=== PATIENT | male | born 1950 | race Caucasian/White ===

== ENCOUNTER 2021-09-23 12:40 | Observation (INO) ==
--- NOTE | 2021-09-23 13:15 | Emergency Department Note ---
Impression & Plan Transient memory loss, GERD (gastroesophageal reflux disease), H/O: HTN (hypertension) ED Provider Note NAME: MARTHA TRAN AGE: 71 SEX: M : 1950 ARRIVES VIA: Walk-In INFORMANT: Patient, ED PROVIDER(S): Jenaro Monterroso MD Chief Complaint: Memory issues HPI: Patient presents due to concern for memory concerns and confusion which started around 1130 today. The patient could not remember things that happened this morning and slept longer than expected. The patient had been looking at a check and could not remember where he and his had met for the first date or his checking information. Patient did not have any symptoms through this morning. No prior history of any TIA or stroke. No history of seizure. The patient does have a history of hypertension and is getting this Monday but denies feeling more stressed. Patient denies any headache or neck pain. The patient denies any focal numbness tingling or weakness, slurred speech, facial droop, or dysarthria. The patient's symptoms have since resolved and the patient is able to remember his bank information as well is where he and his fiance met on the first day. Patient denies any nausea vomiting chest pain or shortness of breath. Patient denies any leg swelling. Patient says he has never had any prior history of memory issues or dementia. ROS: See HPI for pertinent positives and negatives. A total of 10 systems were reviewed and otherwise negative. Past medical history: See below Surgical history: See below Social history: See below Physical Exam: GENERAL: NAD, wearing a mask, non-toxic. EYE EXAM: Normal conjunctiva. PERRL, no anisocoria and EOM's grossly intact w/o pain. OROPHARYNX: Moist mucus membranes. Grossly normal dentition. NECK: Supple, no nuchal rigidity, no adenopathy, non-tender. No signs of meningismus. LUNGS: Clear to auscultation. Normal chest wall mechanics. HEART: NSR, no MRG. ABDOMEN: Abdomen soft, non-tender, normo-active bowel sounds, no masses, no rebound or guarding. BACK: No CVA TTP. SKIN: No rashes and no bruising. UPPER EXTREMITIES: Upper extremities are grossly normal. LOWER EXTREMITIES: Grossly normal, no edema. NEURO EXAM: A&O x3, cranial nerves II-XII grossly intact, normal speech, moves all 4 extremities on command w/o issue. Good finger to nose, no drift, no sensory deficits. Differential diagnoses: Infection, dehydration, metabolic abnormality, hypo/hy perglycemia, electrolyte disturbance, anemia, hypoxia, cardiac sources, intracerebral event, toxicologic, neurologic, as well as other pathologies. Course: Patient was seen and evaluated the bedside. Full history physical exam was performed. EKG interpreted by me Normal sinus rhythm, rate of 82, normal intervals, left axis deviation, Q waves high lateral leads. Imaging Studies: See Below Cardiac monitoring: An order was placed for continuous cardiac monitoring. The monitor shows a rate of 80 with sinus rhythm. MDM: Patient was seen due to concern for transient memory loss. Patient denies any known history of TIA or seizure. Patient did have bladder completed along with CT head and CT angiography of the head neck. Patient is a normal white count H&H and platelet count. The patient's kidney function is unremarkable. Bilirubin 1.4 but the patient has no right upper quadrant pain this is likely incidental in nature. Covid negative. Troponin not detectable. Patient's chest film is clear. CT of the head and CT angiography of the head and neck are negative. Patient was ordered aspirin as a precaution given the negative CT head and CT angiography of head neck. MRI was ordered. I did speak the on-call hospitalist Dr. Bibi PA-C and the patient was admitted by Dr. Jensen. Past Med/Surg History Medical History BPH (benign prostatic hyperplasia) Depression Environmental allergies Essential hypertension GERD (gastroesophageal reflux disease) Prostate CA Restless leg syndrome Surgical History H/O vasectomy History of hernia surgery History of total left knee replacement Hx of tonsillectomy Family History Father , age 62 Heart disease Mother , ~70 y/o Heart disease Stroke Social History Smoking Status: Never smoker Second Hand Exposure: No; Do You Dip or Chew Tobacco: No; Tobacco Cessation Education Requested by Patient: No Hx Alcohol Use: Yes Alcohol type: beer and hard liquor Hx Substance Use: No Preferred Language: Turkmen Communication Ability: Effective Toxicology Supervisor Required: No Beliefs That Will Affect Care: Hoahaoism Current Living Situation: Significant Other Current Living Situation Comment: lives with fiance Other Information That Helps Us Care for You: No Feels Safe at Home: Yes Safety Concerns: Feels Safe At This Time Allergies Allergies Allergy/AdvReac Type Severity Reaction Status Date / Time mold Allergy Mild Congested Verified 09/23/21 15:52 dust Allergy Mild Congested Uncoded 09/23/21 15:52 pets Allergy Mild Congested Uncoded 09/23/21 15:52 Home Meds Home Medications Medication Instructions Recorded Confirmed amlodipine 5 mg tablet 5 mg PO QAM 09/23/21 09/23/21 lisinopril 20 mg tablet 20 mg PO QAM 09/23/21 09/23/21 loratadine 10 mg tablet 10 mg PO DAILY PRN 09/23/21 09/23/21 melatonin 10 mg tablet 10 mg PO HS 09/23/21 09/23/21 metoprolol succinate 100 mg 100 mg PO DAILY 09/23/21 09/23/21 tablet,extended release 24 hr multivitamin 1 tab PO QAM 09/23/21 09/23/21 omeprazole 20 mg capsule,delayed 20 mg PO QAM 09/23/21 09/23/21 release tamsulosin 0.4 mg capsule 0.8 mg PO HS 09/23/21 09/23/21 Results & Data (ED) Vital Signs Vital Signs - 24 hr 09/23/21 12:46 09/23/21 13:19 09/23/21 15:32 Temperature 36.7 C Temperature Source Temporal Artery Scan Pulse Rate 88 Pulse Rate [Right Finger] Pulse Rhythm [Right Finger] Pulse Strength [Right Finger] Respiratory Rate 20 24 Respiratory Effort / Characteristics Non-Labored Spontaneous Non-Labored Spontaneous Respiratory Depth Normal Deep Respiratory Pattern Regular Regular Blood Pressure 176/110 H Blood Pressure [Right Arm] 166/110 H Blood Pressure Mean 132 Blood Pressure Mean [Right Arm] 128 Blood Pressure Position [Right Arm] Lying Pulse Oximetry 95 97 Oxygen Delivery Method Room Air Room Air Room Air Sepsis Recent Fever Within 48 Hours No Sepsis New/Unexplained Change in Mental Status No Sepsis Action Taken by Nursing No Action Required 09/23/21 16:00 Temperature Temperature Source Pulse Rate Pulse Rate [Right Finger] 72 Pulse Rhythm [Right Finger] Regular Pulse Strength [Right Finger] Normal Respiratory Rate 18 Respiratory Effort / Characteristics Non-Labored Spontaneous Respiratory Depth Normal Respiratory Pattern Blood Pressure Blood Pressure [Right Arm] 132/106 H Blood Pressure Mean Blood Pressure Mean [Right Arm] 114 Blood Pressure Position [Right Arm] Pulse Oximetry 95 Oxygen Delivery Method Room Air Sepsis Recent Fever Within 48 Hours Sepsis New/Unexplained Change in Mental Status Sepsis Action Taken by Shelter Medications Current Medication List: was personally reviewed by me Laboratory Data Attestation: I reviewed the patient's lab results. Result diagrams: 09/23/21 13:26 09/23/21 13:26 Lab Results 09/23/21 09/23/21 09/23/21 Range/Units 13:26 13:26 13:26 WBC 7.77 (4.8-10.8) K/uL RBC 4.92 (4.7-6.1) M/uL Hgb 14.9 (14.0-18.0) g/dL Hct 45.0 (42-52) % MCV 91.5 (80-100) fL MCH 30.3 (25-34) pg MCHC 33.1 (32-36) g/dL RDW Std Deviation 49.5 H (36.4-46.3) fL RDW Coeff of Carine 14.7 H (11.5-14.5) % Plt Count 270 (130-400) K/uL MPV 11.0 H (7.4-10.4) fL Immature Gran % (Auto) 0.3 % Neut % (Auto) 62.3 % Lymph % (Auto) 21.8 % Denali % (Auto) 10.0 % Eos % (Auto) 5.3 % Baso % (Auto) 0.3 % Neut # (Auto) 4.85 (1.4-6.5) K/uL Lymph # (Auto) 1.69 (1.2-3.4) K/uL Den[place] # (Auto) 0.78 H (0.11-0.59) K/uL Eos # (Auto) 0.41 (0-0.5) K/uL Baso # (Auto) 0.02 (0-0.2) K/uL Immature Gran # (Auto) 0.02 (0.00-0.02) K/uL PT 10.5 (9.0-12.0) Seconds INR 1.0 (0.9-1.1) APTT 26.3 (21.0-31.0) Seconds PTT Ratio 1.0 Sodium 138 (136-145) mmol/L Potassium 4.0 (3.5-5.1) mmol/L Chloride 105 (98-107) mmol/L Carbon Dioxide 28 (21-32) mmol/L Anion Gap 5 (3-11) BUN 14 (6-23) mg/dl Creatinine 1.12 (0.6-1.4) mg/dl Est Cr Clr Drug Dosing 73.4 ml/min Est GFR ( Amer) 75.1 ml/min Est GFR (Non-Af Amer) 64.8 ml/min BUN/Creatinine Ratio 12.5 (10-20) Glucose 107 H (70-99(Fasting)) mg/dl Calcium 9.4 (8.5-10.1) mg/dl Magnesium 1.9 (1.7-2.4) mg/dl Total Bilirubin 1.4 H (0.2-1.0) mg/dl AST 18 (13-39) U/L ALT 23 (7-52) U/L Alkaline Phosphatase 51 (34-104) U/L Troponin I (0-0.04) ng/ml Total Protein 7.1 (6.0-8.3) gm/dl Albumin 3.9 (3.4-5.0) gm/dl Globulin 3.2 (2.5-4.0) gm/dl Albumin/Globulin Ratio 1.2 (0.9-2) SARS-CoV-2, RNA, NAAT (NEGATIVE) 09/23/21 09/23/21 Range/Units 13:26 13:35 WBC (4.8-10.8) K/uL RBC (4.7-6.1) M/uL Hgb (14.0-18.0) g/dL Hct (42-52) % MCV (80-100) fL MCH (25-34) pg MCHC (32-36) g/dL RDW Std Deviation (36.4-46.3) fL RDW Coeff of Carine (11.5-14.5) % Plt Count (130-400) K/uL MPV (7.4-10.4) fL Immature Gran % (Auto) % Neut % (Auto) % Lymph % (Auto) % Den[place] % (Auto) % Eos % (Auto) % Baso % (Auto) % Neut # (Auto) (1.4-6.5) K/uL Lymph # (Auto) (1.2-3.4) K/uL Denali # (Auto) (0.11-0.59) K/uL Eos # (Auto) (0-0.5) K/uL Baso # (Auto) (0-0.2) K/uL Immature Gran # (Auto) (0.00-0.02) K/uL PT (9.0-12.0) Seconds INR (0.9-1.1) APTT (21.0-31.0) Seconds PTT Ratio Sodium (136-145) mmol/L Potassium (3.5-5.1) mmol/L Chloride (98-107) mmol/L Carbon Dioxide (21-32) mmol/L Anion Gap (3-11) BUN (6-23) mg/dl Creatinine (0.6-1.4) mg/dl Est Cr Clr Drug Dosing ml/min Est GFR ( Amer) ml/min Est GFR (Non-Af Amer) ml/min BUN/Creatinine Ratio (10-20) Glucose (70-99(Fasting)) mg/dl Calcium (8.5-10.1) mg/dl Magnesium (1.7-2.4) mg/dl Total Bilirubin (0.2-1.0) mg/dl AST (13-39) U/L ALT (7-52) U/L Alkaline Phosphatase (34-104) U/L Troponin I < 0.03 (0-0.04) ng/ml Total Protein (6.0-8.3) gm/dl Albumin (3.4-5.0) gm/dl Globulin (2.5-4.0) gm/dl Albumin/Globulin Ratio (0.9-2) SARS-CoV-2, RNA, NAAT NEGATIVE (NEGATIVE) Administered Medications Discontinued Medications Aspirin (Aspirin Chew 324 Mg) 324 mg PO NOW STA Stop: 09/23/21 15:43 Last Admin: 09/23/21 16:14 Dose: 324 mg Documented by: [id number] Ioversol (Optiray 320 125ml) 120 ml IV ONCE ONE Stop: 09/23/21 15:06 Last Admin: 09/23/21 15:06 Dose: 120 ml Documented by: [id number] Imaging Data Radiologist's Impression: Chest X-Ray 09/23/21 12:54 XR chest 2V PA/lateral HISTORY: 71 years-old Male stroke alert acute strokelike symptoms COMPARISON: None TECHNIQUE: PA and lateral views of the chest FINDINGS: Cardiac silhouette is enlarged. There is no pneumothorax, pleural effusion, airspace consolidation or overt pulmonary edema. The bones of the chest appear grossly intact. IMPRESSION: No acute process. ACT 112: Negative or not required by law. The above report was generated using voice recognition software. It may contain grammatical, syntax or spelling errors. Electronically signed by: Jovanny Nolan M.D. 09/23/2021 3:[address] 09/23/21 12:54 CT head/brain wo con CLINICAL HISTORY: 71 years-old Male with Stroke Alert. Acute strokelike sympto ms TECHNIQUE: Multiple axial CT images of the head were obtained without contrast. A dose lowering technique was utilized adhering to the principles of ALARA. CT DOSE: 638.56 mGycm COMPARISON: None. FINDINGS: No acute intracranial hemorrhage, midline shift, intracranial mass, hydrocephalus, territorial ischemia or abnormal extra-axial collection. Age- related involutional changes with mild ex vacuo jugular megaly. White matter hypodensities suggest chronic microvascular ischemic disease. Cerebral vascular calcifications. The study is mildly motion degraded. The calvarium is intact. The paranasal sinuses, mastoid air cells, and middle ear cavities are clear. IMPRESSION: No acute intracranial abnormality. ACT 112: Negative or not required by law. The above report was generated using voice recognition software. It may contain grammatical, syntax or spelling errors. Electronically signed by: Jovanny Noaln M.D. 09/23/2021 1:45 PM Head CTA 09/23/21 13:24 CT angio head w con, CT angio neck with con CLINICAL HISTORY: 71 years-old Male with Stroke Like Symptoms. Acute str okelike symptoms COMPARISON STUDY: Head CT of same day TECHNIQUE: Following the IV administration of 120 cc of Optiray, CT angiogram of the head and neck was performed from the aortic arch to the skull apex. Images are reviewed in the axial, sagittal, and coronal planes. 3-D MIPS images are created and assessed. IV contrast was administered without complication. All measurements were obtained according to NASCET criteria. A dose lowering techn ique was utilized adhering to the principles of ALARA. CT DOSE: 681.23 mGy.cm FINDINGS: Atherosclerosis of the thoracic aorta. Patency of the innominate and imaged subclavian arteries. Mild atherosclerosis of the common carotid arteries. Atherosclerotic plaque of the left greater than right carotid bulbs results in less than 50% stenosis bilaterally. Study is mildly motion degraded. The internal carotid, middle and anterior cerebral arteries are patent bilaterally. Patent and codominant vertebral arteries. There is atherosclerotic plaque at the origin of the left vertebral artery which results in mild stenosis, suboptimally visualized secondary to motion artifact. The basilar and posterior cerebral arteries are patent. There is origin of the right posterior cerebral artery. The cerebral venous sinuses are patent. There is no abnormal intracranial enhancement. The lung apices are clear. No pneumothorax. Unremarkable thyroid. Degenerative changes of the cervical spine. IMPRESSION: 1. Atherosclerotic vascular disease. No aneurysm, dissection, high-grade stenosis or arterial occlusion. 2. Atherosclerotic plaque of the carotid bulbs results in less than 50% stenosis bilaterally. ACT 112: Negative or not required by law. The above report was generated using voice recognition software. It may contain grammatical, syntax or spelling errors. Electronically signed by: Jovanny Nolan M.D. 09/23/2021 3:29 PM Neck CTA 09/23/21 13:24 CT angio head w con, CT angio neck with con CLINICAL HISTORY: 71 years-old Male with Stroke Like Symptoms. Acute strokelike symptoms COMPARISON STUDY: Head CT of same day TECHNIQUE: Following the IV administration of 120 cc of Optiray, CT angiogram of the head and neck was performed from the aortic arch to the skull apex. Images are reviewed in the axial, sagittal, and coronal planes. 3-D MIPS images are created and assessed. IV contrast was administered without complication. All measurements were obtained according to NASCET criteria. A dose lowering technique was utilized adhering to the principles of ALARA. CT DOSE: 681.23 mGy.cm FINDINGS: Atherosclerosis of the thoracic aorta. Patency of the innominate and imaged subclavian arteries. Mild atherosclerosis of the common carotid arteries. Atherosclerotic plaque of the left greater than right carotid bulbs results in less than 50% stenosis bilaterally. Study is mildly motion degraded. The interna l carotid, middle and anterior cerebral arteries are patent bilaterally. Patent and codominant vertebral arteries. There is atherosclerotic plaque at the origin of the left vertebral artery which results in mild stenosis, suboptimally visualized secondary to motion artifact. The basilar and posterior cerebral arteries are patent. There is origin of the right posterior cerebral artery. The cerebral venous sinuses are patent. There is no abnormal intracranial enhancement. The lung apices are clear. No pneumothorax. Unremarkable thyroid. Degenerative changes of the cervical spine. IMPRESSION: 1. Atherosclerotic vascular disease. No aneurysm, dissection, high-grade stenosis or arterial occlusion. 2. Atherosclerotic plaque of the carotid bulbs results in less than 50% stenosis bilaterally. ACT 112: Negative or not required by law. The above report was generated using voice recognition software. It may contain grammatical, syntax or spelling errors. Electronically signed by: Jovanny Nolan M.D. 09/23/2021 3:29 PM Brain MRI 09/23/21 15:42 MRI OF THE BRAIN WITHOUT IV CONTRAST CLINICAL HISTORY: Transient change in mental status. Confusion. COMPARISON STUDY: CT of the brain dated 09/23/2021. TECHNIQUE: MRI of the brain was performed utilizing various T1 and T2-weighted sequences in the axial, sagittal, and coronal planes. IV contrast was not administered for this examination. FINDINGS: Brain parenchyma: There is age-related involutional change noting mild subcortical and periventricular microangiopathic disease. There is no hemorrhage or mass effect. There is no restricted diffusion to suggest acute ischemia. Tee-white matter differentiation is preserved. No extra-axial fluid collection is seen. The cerebellar tonsils are normal in configuration. Ventricles, sulci, and cisterns: Prominent secondary to involutional change. Pituitary and sella: Unremarkable. Intracranial vasculature: Normal flow voids are maintained at the skull base. Orbits: The bony orbits are grossly intact. Orbital contents are normal in appearance. Sinuses and mastoids: There is mild mucosal thickening in the left frontal sinus. Trace mucosal thickening is seen within the ethmoid and left maxillary sinuses. The mastoid air cells are clear. Calvarium: Unremarkable. Cervical cord: Partially visualized cervical spinal cord is normal in morphology and signal intensity. IMPRESSION: No acute intracranial abnormality. ACT 112: Negative or not required by law. Electronically signed by: Ady Francisco M.D. 09/23/2021 5:32 PM Discharge Plan Visit Data Chief Complaint: Neuro Symptoms/Deficit Stated Complaint: LOST MEMORY AT BREAKFAST ED Provider: Jenaro Monterroso Discharge Problem: Transient memory loss, GERD (gastroesophageal reflux disease), H/O: HTN (hypertension) Discharge Instructions Interventions: ED Discharge Assessment Last Done: 09/23/21 17:53
[2021-09-23 13:43] LABS: Basophils # (auto) 0.02 K/uL (0-0.2); Basophils % (auto) 0.3 %; Eosinophils # (auto) 0.41 K/uL (0-0.5); Eosinophils % (auto) 5.3 %; Hemoglobin 14.9 g/dL (14.0-18.0); Immature Granulocytes # (auto) 0.02 K/uL (0.00-0.02); Immature Granulocytes % (auto) 0.3 %; Lymphocytes # (auto) 1.69 K/uL (1.2-3.4); Lymphocytes % (auto) 21.8 %; Mean Corpuscular Hemoglobin 30.3 pg (25-34); Mean Corpuscular Hgb Conc 33.1 g/dL (32-36); Mean Corpuscular Volume 91.5 fL (80-100); Monocytes # (auto) 0.78 K/uL (0.11-0.59); Neutrophils # (auto) 4.85 K/uL (1.4-6.5); Neutrophils % (auto) 62.3 %; Platelet Count 270 K/uL (130-400); RDW Coefficient of Variation 14.7 % (11.5-14.5); RDW Standard Deviation 49.5 fL (36.4-46.3); Red Blood Count 4.92 M/uL (4.7-6.1); White Blood Count 7.77 K/uL (4.8-10.8)
--- NOTE | 2021-09-23 13:46 | CT Scan Report ---
CT head/brain wo con CLINICAL HISTORY: 71 years-old Male with Stroke Alert. Acute strokelike symptoms TECHNIQUE: Multiple axial CT images of the head were obtained without contrast. A dose lowering tech nique was utilized adhering to the principles of ALARA. CT DOSE: 638.56 mGycm COMPARISON: None. FINDINGS: No acute intracranial hemorrhage, midline shift, intracranial mass, hydrocephalus, territorial ischem ia or abnormal extra-axial collection. Age-related involutional changes with mild ex vacuo jugular me denise. White matter hypodensities suggest chronic microvascular ischemic disease. Cerebral vascular ca lcifications. The study is mildly motion degraded. The calvarium is intact. The paranasal sinuses, mastoid air cells, and middle ear cavities are clear . IMPRESSION: No acute intracranial abnormality. ACT 112: Negative or not required by law. The above report was generated using voice recognition software. It may contain grammatical, syntax o r spelling errors. Electronically signed by: Jovanny Nolan M.D. 09/23/2021 1:45 PM
[2021-09-23 13:57] LABS: Partial Thromboplastin Time 26.3 Seconds (21.0-31.0); Prothrombin Time 10.5 Seconds (9.0-12.0)
[2021-09-23 14:05] LABS: Albumin Globulin Ratio 1.2 (0.9-2); Albumin Level 3.9 gm/dl (3.4-5.0); BUN Creatinine Ratio 12.5 (10-20); Bilirubin,Total 1.4 mg/dl (0.2-1.0); Calcium 9.4 mg/dl (8.5-10.1); Creatinine Clr Calc Pharmacy 73.4 ml/min; Est GFR (African American) 75.1 ml/min; Est GFR (Non-African American) 64.8 ml/min; Globulin 3.2 gm/dl (2.5-4.0); Magnesium 1.9 mg/dl (1.7-2.4); Total Protein 7.1 gm/dl (6.0-8.3)
--- NOTE | 2021-09-23 14:37 | Electrocardiogram Report ---
Test Reason : Blood Pressure : / mmHG Vent. Rate : 082 BPM Atrial Rate : 082 BPM P-R Int : 180 ms QRS Dur : 088 ms QT Int : 378 ms P-R-T Axes : 039 -56 023 degrees QTc Int : 441 ms Normal sinus rhythm Left anterior fascicular block Minimal voltage criteria for LVH, may be normal variant Abnormal ECG No previous ECGs available Confirmed by Eric Oswald ([id number]) on 09/23/2021 2:37:13 PM Referred By: SELF Confirmed By:Eric Oswald
--- NOTE | 2021-09-23 15:03 | XRay Report ---
XR chest 2V PA/lateral HISTORY: 71 years-old Male stroke alert acute strokelike symptoms COMPARISON: None TECHNIQUE: PA and lateral views of the chest FINDINGS: Cardiac silhouette is enlarged. There is no pneumothorax, pleural effusion, airspace consolidation or overt pulmonary edema. The bones of the chest appear grossly intact. IMPRESSION: No acute process. ACT 112: Negative or not required by law. The above report was generated using voice recognition software. It may contain grammatical, syntax o r spelling errors. Electronically signed by: Jovanny Nolan M.D. 09/23/2021 3:02 PM
[2021-09-23] MEDS ORDERED: OPTIRAY 320 125ml IV ONE (15:05)
--- NOTE | 2021-09-23 15:30 | CT Scan Report ---
CT angio head w con, CT angio neck with con CLINICAL HISTORY: 71 years-old Male with Stroke Like Symptoms. Acute strokelike symptoms COMPARISON STUDY: Head CT of same day TECHNIQUE: Following the IV administration of 120 cc of Optiray, CT angiogram of the head and neck wa s performed from the aortic arch to the skull apex. Images are reviewed in the axial, sagittal, and c oronal planes. 3-D MIPS images are created and assessed. IV contrast was administered without complic ation. All measurements were obtained according to NASCET criteria. A dose lowering technique was uti lized adhering to the principles of ALARA. CT DOSE: 681.23 mGy.cm FINDINGS: Atherosclerosis of the thoracic aorta. Patency of the innominate and imaged subclavian arteries. Mild atherosclerosis of the common carotid arteries. Atherosclerotic plaque of the left greater than righ t carotid bulbs results in less than 50% stenosis bilaterally. Study is mildly motion degraded. The i nternal carotid, middle and anterior cerebral arteries are patent bilaterally. Patent and codominant vertebral arteries. There is atherosclerotic plaque at the origin of the left vertebral artery which results in mild stenosis, suboptimally visualized secondary to motion artifact. The basilar and poste rior cerebral arteries are patent. There is origin of the right posterior cerebral artery. The cerebral venous sinuses are patent. There is no abnormal intracranial enhancement. The lung apices are clear. No pneumothorax. Unremarkable thyroid. Degenerative changes of the cervica l spine. IMPRESSION: 1. Atherosclerotic vascular disease. No aneurysm, dissection, high-grade stenosis or arterial occlusi on. 2. Atherosclerotic plaque of the carotid bulbs results in less than 50% stenosis bilaterally. ACT 112: Negative or not required by law. The above report was generated using voice recognition software. It may contain grammatical, syntax o r spelling errors. Electronically signed by: Jovanny oNlan M.D. 09/23/2021 3:29 PM
[2021-09-23] MEDS ORDERED: ASPIRIN CHEW 324 MG PO STA (15:42)
--- NOTE | 2021-09-23 16:44 | History & Physical Report ---
Date of Service September 23, 2021 Assessment & Plan (1) Transient memory loss: Plan: Unclear etiology for symptoms. May have been related to TIA or other underlying neurologic issue. - Admit for observation overnight on security monitor - MRI Brain - Neuro checks - Check ECHO - Consult neurology - Start aspirin 81 mg daily - Holding BP meds tonight due to potential TIA - will re-eval in AM - Lipid panel and A1c in AM (2) GERD (gastroesophageal reflux disease): (3) Environmental allergies: (4) BPH (benign prostatic hyperplasia): (5) Essential hypertension: Plan: Continue other home medications as appropriate. Pt seen and reviewed with collaborating physician, Dr. Jensen. Plan of care discussed and as outlined above. Code Status: Full code DVT Prophylaxis: Mike Guillermo PA-C History of Present Illness Chief Complaint: Transient memory loss Primary Care Provider: Osito Alfaro MD This is a 71 y/o male with a PMH of HTN, BPH, RLS, prostate CA, and depression who presents to the ED today with a transient episode of memory loss. Pt reports that he was in his usual state of health this morning when he woke up. He was sitting talking to his fiance this morning, when he couldn't remember basic information that he would typically know such as which bank he uses and what his first date with his fiance was. She reports that she asked him multiple questions that he would typically know and that he didn't. They were concerned that he was having a stroke so they came to the ED for evaluation. His symptoms resolved within about an hour, he thinks that they may even have resolved by the time that he arrived in the ED. He denies any associated chest pain, palpitations, SOB, dizziness, MAR, weakness, numbness/tingling, syncope, or dysarthria. He had an episode three years ago of not feeling right with marked HTN - BP at one point greater than 200 so he was evaluated in the ED and admitted overnight for observation. No similar symptoms to today's events previously. Allergies Allergy/AdvReac Type Severity Reaction Status Date / Time mold Allergy Mild Congested Verified 09/23/21 15:52 dust Allergy Mild Congested Uncoded 09/23/21 15:52 pets Allergy Mild Congested Uncoded 09/23/21 15:52 Home Medications Medication Instructions Recorded Confirmed Type amlodipine 5 mg tablet 5 mg PO QAM 09/23/21 09/23/21 History lisinopril 20 mg tablet 20 mg PO QAM 09/23/21 09/23/21 History loratadine 10 mg tablet 10 mg PO DAILY PRN 09/23/21 09/23/21 History melatonin 10 mg tablet 10 mg PO HS 09/23/21 09/23/21 History metoprolol succinate 100 mg 100 mg PO DAILY 09/23/21 09/23/21 History tablet,extended release 24 hr multivitamin 1 tab PO QAM 09/23/21 09/23/21 History omeprazole 20 mg capsule,delayed 20 mg PO QAM 09/23/21 09/23/21 History release tamsulosin 0.4 mg capsule 0.8 mg PO HS 09/23/21 09/23/21 History Past Med/Surg History Medical History BPH (benign prostatic hyperplasia) Depression Environmental allergies Essential hypertension GERD (gastroesophageal reflux disease) Prostate CA Restless leg syndrome Surgical History H/O vasectomy History of hernia surgery History of total left knee replacement Hx of tonsillectomy Family History Father , age 62 Heart disease Mother , ~70 y/o Heart disease Stroke Social History Smoking Status: Never smoker Second Hand Exposure: No; Do You Dip or Chew Tobacco: No; Tobacco Cessation Education Requested by Patient: No Hx Alcohol Use: Yes Alcohol type: beer and hard liquor Hx Substance Use: No Preferred Language: Venezuelan Communication Ability: Effective 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 Beliefs That Will Affect Care: Jewish Current Living Situation: Significant Other Current Living Situation Comment: lives with fiance Other Information That Helps Us Care for You: No Feels Safe at Home: Yes Safety Concerns: Feels Safe At This Time Review of Systems Review of Systems: All systems reviewed & are unremarkable except as noted in HPI & below Constitutional: no fever, no chills, no fatigue, no weakness and no anorexia Eyes: no diplopia and no worsening vision Ear, Nose, Mouth, Throat: no nasal congestion, no sore throat and no dysphagia Respiratory: no cough, no dyspnea and no wheezing Cardiovascular: no chest pain, no palpitations, no lightheadedness, no syncope and no edema Gastrointestinal: no abdominal pain, no nausea, no vomiting and no diarrhea/loose stools Genitourinary: no dysuria, no urinary frequency or no hematuria Musculoskeletal: no back pain, no neck pain and no muscle weakness Integumentary: no rash and no yellowing of the skin Neurologic: no localized weakness, no generalized weakness, no tingling, no tremor(s), no seizure-like activity, no headache(s) and no abnormal speech Psychiatric: no depression and no anxiety Physical Exam Constitutional: well developed and well nourished; no acute distress Eyes: PERRL, conjunctivae normal, anicteric sclerae EOM intact bilaterally ENMT: external ear and nose normal, oropharynx normal Neck: trachea midline Respiratory: no respiratory distress and no labored breathing Auscultation: lungs clear to auscultation bilaterally; no rales, no rhonchi and no wheezes Cardiovascular: Rate/Rhythm: regular rate and regular rhythm Vessels: dorsalis pedis pulses present and radial pulses present; no carotid bruit Extremities: no calf tenderness and no pedal edema Gastrointestinal (Abdomen): Inspection/Auscultation: normal bowel sounds; abdomen not distended Percussion/Palpation: abdomen soft; abdomen nontender Musculoskeletal: Head/Neck/Chest: normocephalic, head atraumatic and neck supple Skin: no rashes, warm and dry Neurologic: moves all extremities; no focal motor deficits Speech / Cognition: normal speech Motor/Sensory: no tremor and no fasciculations Cranial Nerves: PERRL, normal accommodation, EOM intact bilaterally, tongue midline, able to rotate head bilaterally and no nystagmus Psychiatric: A+Ox3, euthymic affect Results & Data Results & Data ([facility]) Vital Signs (Past 12 Hours) Vital Signs Temp Pulse Pulse Resp BP BP Pulse Ox 09/23/21 16:00 72 18 132/106 H 95 09/23/21 15:32 24 166/110 H 97 09/23/21 12:46 36.7 C 88 20 176/110 H 95 Laboratory Results Laboratory Results - last 24 hr 09/23/21 09/23/21 09/23/21 13:26 13:26 13:26 WBC 7.77 RBC 4.92 Hgb 14.9 Hct 45.0 MCV 91.5 MCH 30.3 MCHC 33.1 RDW Std Deviation 49.5 H RDW Coeff of Carine 14.7 H Plt Count 270 MPV 11.0 H Immature Gran % (Auto) 0.3 Neut % (Auto) 62.3 Lymph % (Auto) 21.8 [place] % (Auto) 10.0 Eos % (Auto) 5.3 Baso % (Auto) 0.3 Neut # (Auto) 4.85 Lymph # (Auto) 1.69 [place] # (Auto) 0.78 H Eos # (Auto) 0.41 Baso # (Auto) 0.02 Immature Gran # (Auto) 0.02 PT 10.5 INR 1.0 APTT 26.3 PTT Ratio 1.0 Sodium 138 Potassium 4.0 Chloride 105 Carbon Dioxide 28 Anion Gap 5 BUN 14 Creatinine 1.12 Est Cr Clr Drug Dosing 73.4 Est GFR ( Amer) 75.1 Est GFR (Non-Af Amer) 64.8 BUN/Creatinine Ratio 12.5 Glucose 107 H Calcium 9.4 Magnesium 1.9 Total Bilirubin 1.4 H AST 18 ALT 23 Alkaline Phosphatase 51 Troponin I Total Protein 7.1 Albumin 3.9 Globulin 3.2 Albumin/Globulin Ratio 1.2 SARS-CoV-2, RNA, NAAT 09/23/21 09/23/21 13:26 13:35 WBC RBC Hgb Hct MCV MCH MCHC RDW Std Deviation RDW Coeff of Carine Plt Count MPV Immature Gran % (Auto) Neut % (Auto) Lymph % (Auto) [place] % (Auto) Eos % (Auto) Baso % (Auto) Neut # (Auto) Lymph # (Auto) [place] # (Auto) Eos # (Auto) Baso # (Auto) Immature Gran # (Auto) PT INR APTT PTT Ratio Sodium Potassium Chloride Carbon Dioxide Anion Gap BUN Creatinine Est Cr Clr Drug Dosing Est GFR ( Amer) Est GFR (Non-Af Amer) BUN/Creatinine Ratio Glucose Calcium Magnesium Total Bilirubin AST ALT Alkaline Phosphatase Troponin I < 0.03 Total Protein Albumin Globulin Albumin/Globulin Ratio SARS-CoV-2, RNA, NAAT NEGATIVE Diagnostic Findings Chest X-ray 09/23/21 - IMPRESSION: No acute process. CT Head 09/23/21 - IMPRESSION: No acute intracranial abnormality. CTA Head/Neck 09/23/21 - IMPRESSION: 1. Atherosclerotic vascular disease. No aneurysm, dissection, high-grade stenosis or arterial occlusion. 2. Atherosclerotic plaque of the carotid bulbs results in less than 50% stenosis bilaterally. Medications Administered Discontinued Medications Aspirin (Aspirin Chew 324 Mg) 324 mg PO NOW STA Stop: 09/23/21 15:43 Last Admin: 09/23/21 16:14 Dose: 324 mg Documented by: [id number] Ioversol (Optiray 320 125ml) 120 ml IV ONCE ONE Stop: 09/23/21 15:06 Last Admin: 09/23/21 15:06 Dose: 120 ml Documented by: [id number] Code Status & VTE Plan VTE Prophylaxis Plan VTE Prophylaxis will be ordered: Yes Supervising Physician Co-Signing Physician Notes Patient is a 71-year-old male with history of prostate cancer, depression, hypertension, BPH and other medical problems presents with history of transient memory loss started around 1130 this morning. Patient could not answer questions that his fiance asked for few minutes. Patient denies any stress but informs that he is getting this weekend. Patient denies any history of facial droop, focal weakness, seizure-like activity, slurred speech. Denies prior strokes or memory issues. Please review his PA for complete details of presentation. Blood work fairly unremarkable. Blood pressure elevated while in ED. MRI brain showed no acute intracranial abnormality. Head and neck CTA showed atherosclerotic vascular disease but no aneurysm, dissection, high-grade stenosis or arterial occlusion noted. Atherosclerotic plaque of the carotid bulbs results in less than 50% stenosis bilaterally noted. Exam patient is well-built and nourished, no apparent distress, normocephalic atraumatic, EOMI, normal breath sounds, clear to auscultation, S1-S2, no murmur, no pedal edema, abdomen soft, nontender, normal bowel sounds, alert, awake, oriented, grossly no focal deficits. Patient is admitted for management of strokelike symptoms. DD: Transient global amnesia, TIA. Symptoms currently resolved. Agree with checking lipid panel, echo, vitamin B12, TSH levels. Plan to resume antihypertensives tomorrow. Neurology consulted. Neurochecks requested. PT OT, speech therapy evaluation requested. I personally reviewed the record. Patient is interviewed and examined at bedside. Patient's care is coordinated with Jazmin Clement. Please refer to the documentation above for details of patient's presentation and for discussion of other issues.
[2021-09-23] MEDS ORDERED: LORATADINE 10 MG TAB PO PRN (17:27)
[2021-09-23] MEDS ORDERED: ACETAMINOPHEN 325 MG TAB PO PRN (17:27)
[2021-09-23] MEDS ORDERED: PHARMACIST DISCHARGE MED REC CONSULT PRN (17:27)
--- NOTE | 2021-09-23 17:33 | Magnetic Resonance Report ---
MRI OF THE BRAIN WITHOUT IV CONTRAST CLINICAL HISTORY: Transient change in mental status. Confusion. COMPARISON STUDY: CT of the brain dated 09/23/2021. TECHNIQUE: MRI of the brain was performed utilizing various T1 and T2-weighted sequences in the axial , sagittal, and coronal planes. IV contrast was not administered for this examination. FINDINGS: Brain parenchyma: There is age-related involutional change noting mild subcortical and periventricula r microangiopathic disease. There is no hemorrhage or mass effect. There is no restricted diffusion t o suggest acute ischemia. Tee-white matter differentiation is preserved. No extra-axial fluid collec tion is seen. The cerebellar tonsils are normal in configuration. Ventricles, sulci, and cisterns: Prominent secondary to involutional change. Pituitary and sella: Unremarkable. Intracranial vasculature: Normal flow voids are maintained at the skull base. Orbits: The bony orbits are grossly intact. Orbital contents are normal in appearance. Sinuses and mastoids: There is mild mucosal thickening in the left frontal sinus. Trace mucosal thick ening is seen within the ethmoid and left maxillary sinuses. The mastoid air cells are clear. Calvarium: Unremarkable. Cervical cord: Partially visualized cervical spinal cord is normal in morphology and signal intensity . IMPRESSION: No acute intracranial abnormality. ACT 112: Negative or not required by law. Electronically signed by: Ady Francisco M.D. 09/23/2021 5:32 PM
[2021-09-23] MEDS ORDERED: MELATONIN 3 MG TAB PO SCH (21:00)
[2021-09-23] MEDS ORDERED: TAMSULOSIN HCL 0.4 MG CAP PO SCH (21:00)
[2021-09-23] MEDS ORDERED: hydrALAZINE HCL 20 MG/ML VIAL IV ONE (23:08)
[2021-09-24] MEDS ORDERED: SODIUM CHLORIDE 0.65% NA SOLN 45 ML (OCEAN) PRN (06:07)
[2021-09-24 06:28] LABS: Basophils # (auto) 0.03 K/uL (0-0.2); Basophils % (auto) 0.4 %; Eosinophils # (auto) 0.47 K/uL (0-0.5); Eosinophils % (auto) 6.4 %; Hematocrit (blood only) 44.2 % (42-52); Hemoglobin 14.6 g/dL (14.0-18.0); Immature Granulocytes # (auto) 0.02 K/uL (0.00-0.02); Immature Granulocytes % (auto) 0.3 %; Lymphocytes # (auto) 1.52 K/uL (1.2-3.4); Lymphocytes % (auto) 20.6 %; Mean Corpuscular Hemoglobin 30.4 pg (25-34); Mean Corpuscular Volume 92.1 fL (80-100); Mean Platelet Volume 11.1 fL (7.4-10.4); Monocytes # (auto) 0.64 K/uL (0.11-0.59); Monocytes % (auto) 8.7 %; Neutrophils % (auto) 63.6 %; Platelet Count 264 K/uL (130-400); RDW Coefficient of Variation 14.9 % (11.5-14.5); RDW Standard Deviation 50.6 fL (36.4-46.3); White Blood Count 7.38 K/uL (4.8-10.8)
[2021-09-24 07:03] LABS: BUN Creatinine Ratio 14.5 (10-20); Calcium 9.1 mg/dl (8.5-10.1); Chol HDL Ratio 4.7 (0-5); Creatinine Clr Calc Pharmacy 70.2 ml/min; Est GFR (African American) 71.3 ml/min; Est GFR (Non-African American) 61.5 ml/min; Potassium 3.8 mmol/L (3.5-5.1)
[2021-09-24] MEDS ORDERED: PANTOprazole 40 MG TAB PO SCH (09:00)
[2021-09-24] MEDS ORDERED: ASPIRIN 81 MG ECTAB PO SCH (09:00)
[2021-09-24] MEDS ORDERED: MULTIVITAMIN TAB PO SCH (09:00)
[2021-09-24] MEDS ORDERED: lisinopril 20 MG TAB PO SCH ×2 (10:00→10:30)
[2021-09-24] MEDS ORDERED: METOPROLOL SUCC 50MG EXT REL TAB PO SCH (10:15)
[2021-09-24] MEDS ORDERED: amLODIPine BESYLATE 5 MG TAB PO SCH (10:30)
--- NOTE | 2021-09-24 10:35 | Neurology Consultation ---
Date of Consultation September 24, 2021 Supervising Physician Co-Signing Physician Notes I have seen and discussed above patient with Dr Tim Rossa History of Present Illness Reason for Consultation: TIA Requesting Physician: Emily Arias MD Attending Physician: Emily Arias MD History of Present Illness Clovis is a 71 year old male with a PMH- HTN, BPH, RLS, prostate CA, and depression who presented to [facility] [place] ED 09/23/2021 with a transient episode of memory loss.He was in his usual state of health this morning when he woke up. He was sitting talking to his fiance this morning, when he couldn't remember basic information that he would typically know such as which bank he uses and what his first date with his fiance was. She asked him multiple questions that he would typically know and that he didn't. They were concerned that he was having a stroke so they came to the ED for evaluation. His symptoms resolved within about an hour, he thinks that they may even have resolved by the time that he arrived in the ED. He had an episode three years ago of not feeling right with marked HTN - BP at one point greater than 200 so he was evaluated in the ED and admitted overnight for observation. Allergies Allergy/AdvReac Type Severity Reaction Status Date / Time mold Allergy Mild Congested Verified 09/23/21 15:52 dust Allergy Mild Congested Uncoded 09/23/21 15:52 pets Allergy Mild Congested Uncoded 09/23/21 15:52 Home Medications Medication Instructions Recorded Confirmed Type amlodipine 5 mg tablet 5 mg PO QAM 09/23/21 09/23/21 History lisinopril 20 mg tablet 20 mg PO QAM 09/23/21 09/23/21 History loratadine 10 mg tablet 10 mg PO DAILY PRN 09/23/21 09/23/21 History melatonin 10 mg tablet 10 mg PO HS 09/23/21 09/23/21 History metoprolol succinate 100 mg 100 mg PO DAILY 09/23/21 09/23/21 History tablet,extended release 24 hr multivitamin 1 tab PO QAM 09/23/21 09/23/21 History omeprazole 20 mg capsule,delayed 20 mg PO QAM 09/23/21 09/23/21 History release tamsulosin 0.4 mg capsule 0.8 mg PO HS 09/23/21 09/23/21 History Patient History Medical History BPH (benign prostatic hyperplasia) Depression Environmental allergies Essential hypertension GERD (gastroesophageal reflux disease) Prostate CA Restless leg syndrome Surgical History H/O vasectomy History of hernia surgery History of total left knee replacement Hx of tonsillectomy Family History Father , age 62 Heart disease Mother , ~70 y/o Heart disease Stroke Social History Smoking Status: Never smoker Second Hand Exposure: No; Do You Dip or Chew Tobacco: No; Tobacco Cessation Education Requested by Patient: No Hx Alcohol Use: Yes Alcohol type: beer and hard liquor Hx Substance Use: No Preferred Language: Persian Communication Ability: Effective Investment Officer Required: No Beliefs That Will Affect Care: Muslim Current Living Situation: Significant Other Current Living Situation Comment: lives with fiance Other Information That Helps Us Care for You: No Feels Safe at Home: Yes Safety Concerns: Feels Safe At This Time Assistive Devices: None Results & Data ([facility]) Vital Signs (Past 12 Hours) Vital Signs Temp Pulse Pulse Resp BP BP Pulse Ox 09/24/21 08:44 36.7 C 106 H 18 146/97 H 94 09/24/21 03:43 36.8 C 90 15 117/72 92 09/23/21 23:56 85 09/23/21 22:32 84 Laboratory Results Abnormal lab results 09/23/21 09/23/21 09/24/21 Range/Units 13:26 13:26 05:18 RDW Std Deviation 49.5 H 50.6 H (36.4-46.3) fL RDW Coeff of Carine 14.7 H 14.9 H (11.5-14.5) % MPV 11.0 H 11.1 H (7.4-10.4) fL [place] # (Auto) 0.78 H 0.64 H (0.11-0.59) K/uL Glucose 107 H (70-99(Fasting)) mg/dl Total Bilirubin 1.4 H (0.2-1.0) mg/dl Triglycerides (0-150) mg/dl VLDL Cholesterol, Calc (0-30) mg/dl 09/24/21 Range/Units 05:18 RDW Std Deviation (36.4-46.3) fL RDW Coeff of Carine (11.5-14.5) % MPV (7.4-10.4) fL [place] # (Auto) (0.11-0.59) K/uL Glucose 126 H (70-99(Fasting)) mg/dl Total Bilirubin (0.2-1.0) mg/dl Triglycerides 182 H (0-150) mg/dl VLDL Cholesterol, Calc 36 H (0-30) mg/dl Diagnostic Findings CT head-no acute intracranial abnormality. CTA head/neck-Atherosclerotic vascular disease. No aneurysm, dissection, high- grade stenosis or arterial occlusion. Atherosclerotic plaque of the carotid bulbs results in less than 50% stenosis bilaterally. MRI brain-No acute intracranial abnormality.
[2021-09-24] MEDS ORDERED: STROKE PATIENT DISCHARGE STA (12:22)
--- NOTE | 2021-09-24 12:23 | Discharge Summary ---
Date of Service September 24, 2021 Admission HPI Per Admitting Provider This is a 71 y/o male with a PMH of HTN, BPH, RLS, prostate CA, and depression who presents to the ED today with a transient episode of memory loss. Pt reports that he was in his usual state of health this morning when he woke up. He was sitting talking to his fiance this morning, when he couldn't remember basic information that he would typically know such as which bank he uses and what his first date with his fiance was. She reports that she asked him multiple questions that he would typically know and that he didn't. They were concerned that he was having a stroke so they came to the ED for evaluation. His symptoms resolved within about an hour, he thinks that they may even have resolved by the time that he arrived in the ED. He denies any associated chest pain, palpitations, SOB, dizziness, MAR, weakness, numbness/tingling, syncope, or dysarthria. He had an episode three years ago of not feeling right with marked HTN - BP at one point greater than 200 so he was evaluated in the ED and admitt ed overnight for observation. No similar symptoms to today's events previously. Admission Exam Per Admitting Provider Constitutional: well developed and well nourished; no acute distress Eyes: PERRL, conjunctivae normal, anicteric sclerae EOM intact bilaterally ENMT: external ear and nose normal, oropharynx normal Neck: trachea midline Respiratory: no respiratory distress and no labored breathing Auscultation: lungs clear to auscultation bilaterally; no rales, no rhonchi and no wheezes Cardiovascular: Rate/Rhythm: regular rate and regular rhythm Vessels: dorsalis pedis pulses present and radial pulses present; no carotid bruit Extremities: no calf tenderness and no pedal edema Gastrointestinal (Abdomen): Inspection/Auscultation: normal bowel sounds; abdomen not distended Percussion/Palpation: abdomen soft; abdomen nontender Musculoskeletal: Head/Neck/Chest: normocephalic, head atraumatic and neck supple Skin: no rashes, warm and dry Neurologic: moves all extremities; no focal motor deficits Speech / Cognition: normal speech Motor/Sensory: no tremor and no fasciculations Cranial Nerves: PERRL, normal accommodation, EOM intact bilaterally, tongue midline, able to rotate head bilaterally and no nystagmus Psychiatric: A+Ox3, euthymic affect Principal Diagnosis Transient Global Amnesia Discharge Exam Constitutional + well hydrated; no acute distress Eyes PERRL, conjunctivae normal, anicteric sclerae ENMT external ear and nose normal, oropharynx normal Respiratory normal respiratory effort, lungs clear to auscultation Cardiovascular Rate/Rhythm: regular rate and regular rhythm S1 S2 Gastrointestinal (Abdomen) normal bowel sounds, soft, nontender, no hepatosplenomegaly Musculoskeletal no cyanosis or clubbing, extremities motor strength 5/5 Neurologic PERRL, EOMI, accommodation nl, no face palsy, no dysarthria Psychiatric A+Ox3, euthymic affect Discharge Data Allergies Allergy/AdvReac Type Severity Reaction Status Date / Time mold Allergy Mild Congested Verified 09/23/21 15:52 dust Allergy Mild Congested Uncoded 09/23/21 15:52 pets Allergy Mild Congested Uncoded 09/23/21 15:52 Consultations 09/23/21 17:27 Consult Neurology Routine Ordered Studies 09/23/21 12:54 CT head/brain wo con Stat No acute intracranial hemorrhage, midline shift, intracranial mass, hydrocephalus, territorial ischemia or abnormal extra-axial collection. Age- related involutional changes with mild ex vacuo jugular megaly. White matter hypodensities suggest chronic microvascular ischemic disease. Cerebral vascular calcifications. The study is mildly motion degraded. The calvarium is intact. The paranasal sinuses, mastoid air cells, and middle ear cavities are clear. IMPRESSION: No acute intracranial abnormality. 09/23/21 13:24 CT angio head w con Stat CT angio neck with con Stat Atherosclerosis of the thoracic aorta. Patency of the innominate and imaged subclavian arteries. Mild atherosclerosis of the common carotid arteries. Atherosclerotic plaque of the left greater than right carotid bulbs results in less than 50% stenosis bilaterally. Study is mildly motion degraded. The internal carotid, middle and anterior cerebral arteries are patent bilaterally. Patent and codominant vertebral arteries. There is atherosclerotic plaque at the origin of the left vertebral artery which results in mild stenosis, suboptimally visualized secondary to motion artifact. The basilar and posterior cerebral arteries are patent. There is origin of the right posterior cerebral artery. The cerebral venous sinuses are patent. There is no abnormal intracranial enhancement. The lung apices are clear. No pneumothorax. Unremarkable thyroid. Degenerative changes of the cervical spine. IMPRESSION: 1. Atherosclerotic vascular disease. No aneurysm, dissection, high-grade stenosis or arterial occlusion. 2. Atherosclerotic plaque of the carotid bulbs results in less than 50% stenosis bilaterally. 09/23/21 15:42 MR brain wo con Stat Brain parenchyma: There is age-related involutional change noting mild subcortical and periventricular microangiopathic disease. There is no hemorrhage or mass effect. There is no restricted diffusion to suggest acute ischemia. Tee-white matter differentiation is preserved. No extra-axial fluid collection is seen. The cerebellar tonsils are normal in configuration. Ventricles, sulci, and cisterns: Prominent secondary to involutional change. Pituitary and sella: Unremarkable. Intracranial vasculature: Normal flow voids are maintained at the skull base. Orbits: The bony orbits are grossly intact. Orbital contents are normal in appearance. Sinuses and mastoids: There is mild mucosal thickening in the left frontal sinus. Trace mucosal thickening is seen within the ethmoid and left maxillary sinuses. The mastoid air cells are clear. Calvarium: Unremarkable. Cervical cord: Partially visualized cervical spinal cord is normal in morphology and signal intensity. IMPRESSION: No acute intracranial abnormality. Hospital Course (1) TGA (transient global amnesia): (2) Transient memory loss: Patient had transient memory loss. Likely transient global amnesia CT head and MRI brain did not show any acute infarct. Echocardiogram reviewed showed EF of 60 to 65%, moderate concentric LVH with asymmetric hypertrophy involving the septum, proximal septal thickness is 7 cm, findings not consistent with LV outflow obstruction, aortic root is moderately enlarged at 4.6 cm, ascending aorta is mildly enlarged at 4.4 cm. Hemoglobin A1c 6.1 All symptoms are resolved. I discussed patient clinical findings and reviewed scans with neurologist Neurologist (Dr Rosas) agree with continuing patient's home medications Patient is to get outpatient EEG being arranged by neurology. (3) GERD (gastroesophageal reflux disease): (4) Environmental allergies: (5) BPH (benign prostatic hyperplasia): (6) Essential hypertension: Continue home medications C Total Time Total Time Spent Total Time Spent (In Minutes): 35 Total Time Includes: Examination of the Patient, Discharge Planning, Medication Reconciliation and Communication With Other Providers Discharge Plan Discharge Items Patient Disposition: Home - Self-Care Reason For Visit: CONFUSION Discharge Diagnosis: Transient Global Amnesia Activity: Resume your previous activity Non-emergency contact: Primary Care Provider Call non-emergency contact if: you have any medication questions and your symptoms worsen Follow-up/Referrals: Osito Alfaro MD [Primary Care Provider] - Wallace Rosas DO [Physician] - (For outpatient EEG) Diet: Heart Healthy Addtl Attending Provider Instructions: Mr Bradford. You came to the hospital due to confusion that lasted for a short time. You were evaluated and had CT and MRI brain which did not show any stroke. You are being discharged home. It is important that you have an outpatient test called EEG for further evaluation. Please ensure follow up with your Primary Doctor. It was a pleasure taking care of you Pending Studies at Discharge: No Stand-Alone Forms: My [facility] [employer], Smoking Cessation Medications and DC Order Prescriptions: Continued multivitamin Tablet 1 tab PO QAM RF: 0 lisinopril 20 mg tablet 20 mg PO QAM RF: 0 amlodipine 5 mg tablet 5 mg PO QAM RF: 0 tamsulosin 0.4 mg capsule 0.8 mg PO HS RF: 0 omeprazole 20 mg capsule,delayed release(DR/EC) 20 mg PO QAM RF: 0 melatonin 10 mg Tablet 10 mg PO HS RF: 0 metoprolol succinate 100 mg Tablet Extended Release 24 Hr 100 mg PO DAILY RF: 0 loratadine 10 mg Tablet 10 mg PO DAILY PRN (Reason: Allergy Symptoms) RF: 0 Discharge Orders: Discharge Order (Routine); Ordered 09/24/21 Ordered By: Emily Arias Admission Data Admit Date/Time: 09/23/21 16:15 Attending Provider: Emily Arias I. Admit Provider: Gilberto Jensen Primary Care Provider: Osito Alfaro Other Providers: Gilberto Jensen Other Interventions: Discharge Summary Assessment (RN) Last Done: 09/24/21 12:29
[2021-09-24 14:03] LABS: Estimated Average Glucose 128 mg/dl; Hemoglobin A1C 6.1 % (4.5-5.6)
== END 2021-09-24 13:59 | disposition home or self-care (01) ==
LOC: EDINP 12:40 → ED 12:40 → SUATTDRO 16:15 → 2S 17:53

== ENCOUNTER 2022-05-09 17:20 | Observation (INO) ==
[2022-05-09] MEDS ORDERED: SODIUM CHLORIDE 0.9% 1000ML 1,000 ML IV ONE ×2 (17:50→21:23)
[2022-05-09] MEDS ORDERED: ACETAMINOPHEN 1,000 MG/100 ML VIAL IV STA (17:50)
--- NOTE | 2022-05-09 18:02 | XRay Report ---
XR chest 1V portable HISTORY: Stroke Like Symptoms COMPARISON: Chest 09/23/2021. FINDINGS: No pneumothorax. The largest. There is progressive interstitial/vascular thickening consist ent with mild congestive change. There is an old, healed left clavicle fracture. A few left basilar l inear densities persist and favor subsegmental atelectasis or scarring. IMPRESSION: Interval progression of the mild congestive change. ACT 112: Negative or not required by law. Electronically signed by: Gui North M.D. 05/09/2022 6:00 PM
[2022-05-09 18:05] LABS: Basophils # (auto) 0.05 K/uL (0-0.2); Basophils % (auto) 0.3 %; Eosinophils # (auto) 0.04 K/uL (0-0.50); Eosinophils % (auto) 0.2 %; Hematocrit (blood only) 44.7 % (40.1-51.0); Hemoglobin 15.4 g/dl (14.0-18.0); Immature Granulocytes # (auto) 0.08 K/uL (0.00-0.02); Immature Granulocytes % (auto) 0.4 %; Lymphocytes % (auto) 3.6 %; Mean Corpuscular Hemoglobin 30.8 pg (25.0-34.0); Mean Corpuscular Hgb Conc 34.5 g/dL (32.0-36.0); Mean Corpuscular Volume 89.4 fL (80.0-100.0); Mean Platelet Volume 11.2 fL (9.4-12.4); Monocytes # (auto) 1.23 K/uL (0.24-0.82); Monocytes % (auto) 6.3 %; Neutrophils # (auto) 17.32 K/uL (1.4-6.5); Neutrophils % (auto) 89.2 %; Platelet Count 264 K/uL (130-400); RDW Coefficient of Variation 14.4 % (11.5-14.5); RDW Standard Deviation 47.4 fL (36.4-46.3); White Blood Count 19.42 K/ul (4.8-10.8)
[2022-05-09 18:06] LABS: iSTAT Creatinine 1.2 mg/dl (0.6-1.3); iSTAT Hemoglobin 16.7 g/dl (14.0-18.0); iSTAT Ionized Calcium 1.19 mmol/l (1.12-1.32); iSTAT Potassium 4.1 mmol/L (3.3-5.0)
[2022-05-09 18:16] LABS: INR 1.1 (0.9-1.1); Partial Thromboplastin Ratio 0.9; Partial Thromboplastin Time 24.1 Seconds (21.0-31.0); Prothrombin Time 11.4 Seconds (9.0-12.0)
[2022-05-09 18:18] LABS: Base Excess ABG 1.5 mEq/L (-9-1.8); HCO3 ABG 25 mmol/L (19-24); Oxygen Saturation ABG 96.9 % (90-95); PCO2 ABG 34 mmHg (35-46); PO2 ABG 78 mmHg (80-95); pH ABG 7.47 (7.35-7.45)
[2022-05-09 18:28] LABS: Albumin Globulin Ratio 1.5 (0.9-2); Albumin Level 4.1 gm/dl (3.4-5.0); BUN Creatinine Ratio 13.6 (10-20); Bilirubin,Total 1.2 mg/dl (0.2-1.0); Calcium 9.4 mg/dl (8.5-10.1); Creatinine Clr Calc Pharmacy 64.4 ml/min; Est GFR (African American) 65.3 ml/min; Est GFR (Non-African American) 56.4 ml/min; Globulin 2.7 gm/dl (2.5-4.0); Magnesium 1.5 mg/dl (1.7-2.4); Potassium 3.8 mmol/L (3.5-5.1); Total Protein 6.8 gm/dl (6.0-8.3)
[2022-05-09 18:31] LABS: Appearance Urine Clear (Clear); Bilirubin Urine Negative (Negative); Blood Urine Negative (Negative); Color Urine Yellow; Glucose Urine UA Negative (Negative); Ketones Urine Negative (Negative); Leukocyte Esterase Urine Negative (Negative); Nitrite Urine Negative (Negative); Protein Urine Negative (Negative); Specific Gravity Urine 1.021 (1.000-1.030); Urobilinogen Urine Negative (Negative)
[2022-05-09 18:32] LABS: Troponin I High Sensitivity 19.9 pg/ml (0-20)
[2022-05-09 18:35] LABS: Procalcitonin < 0.05 ng/ml (0-0.5)
[2022-05-09] MEDS ORDERED: OPTIRAY 300 500mL IV ONE (18:37)
[2022-05-09 18:41] LABS: Lyme Ab IgG w/WB Rflx Negative (Negative)
[2022-05-09 18:42] LABS: Lyme Ab IgM w/WB Rflx Negative (Negative)
[2022-05-09 18:47] LABS: Influenza A virus by PCR Negative (Neg); Influenza B virus by PCR Negative (Neg); RSV by PCR Negative (Neg); SARS CoV2 RNA(COVID-19) InHosp NEGATIVE (Negative)
[2022-05-09 19:17] LABS: Amphetamines+Metham, Urine Neg (Neg); Barbiturates, Urine Neg (Neg); Benzodiazepine, Urine Neg (Neg); Cocaine, Urine Neg (Neg); MDMA (Ecstacy), Urine Neg (Neg); Methadone, Urine Neg (Neg); Opiate, Urine Neg (Neg); Phencyclidine, Urine Neg (Neg)
--- NOTE | 2022-05-09 19:17 | CT Scan Report ---
CT head/brain wo con CLINICAL HISTORY: 72 years-old Male with Stroke Like Symptoms. Acute strokelike symptoms TECHNIQUE: Multiple axial CT images of the head were obtained without contrast. A dose lowering tech nique was utilized adhering to the principles of ALARA. COMPARISON: CTA head and neck of same day, brain MRI 09/23/2021 FINDINGS: No acute intracranial hemorrhage, midline shift, intracranial mass, hydrocephalus, territorial ischem ia or abnormal extra-axial collection. Involutional changes with mild ex vacuo ventriculomegaly. Whit e matter hypodensities suggestive of chronic microvascular ischemic disease. Cerebral vascular calcif ications. The calvarium is intact. The paranasal sinuses, mastoid air cells, and middle ear cavities are clear . IMPRESSION: No acute intracranial abnormality. ACT 112: Negative or not required by law. The above report was generated using voice recognition software. It may contain grammatical, syntax o r spelling errors. Electronically signed by: Jovanny Nolan M.D. 05/09/2022 7:15 PM
[2022-05-09 19:30] LABS: Allen Test POS (Pos)
--- NOTE | 2022-05-09 19:30 | CT Scan Report ---
CT angio neck with con, CT angio head w con CLINICAL HISTORY: 72 years-old Male with Stroke Like Symptoms. Acute stroke like symptoms COMPARISON STUDY: Head CT of same day, CTA head and neck 09/23/2021 TECHNIQUE: Following the IV administration of 112 now of Optiray, CT angiogram of the head and neck w as performed from the aortic arch to the skull apex. Images are reviewed in the axial, sagittal, and coronal planes. 3-D MIPS images are created and assessed. IV contrast was administered without compli cation. All measurements were calculated based on NASCET criteria. A dose lowering technique was uti lized adhering to the principles of ALARA. FINDINGS: Atherosclerosis of the thoracic aorta. Patency of the innominate and imaged subclavian arteries. Mild atherosclerosis of the common carotid arteries. Atherosclerotic plaque of the left greater than righ t carotid bulbs results in less than 50% stenosis bilaterally. Study is mildly motion degraded. The i nternal carotid, middle and anterior cerebral arteries are patent bilaterally. Patent and codominant vertebral arteries. There is atherosclerotic plaque at the origin of the left vertebral artery which results in mild stenosis, suboptimally visualized secondary to motion artifact. The basilar and poste rior cerebral arteries are patent. There is origin of the right posterior cerebral artery. The cerebral venous sinuses are patent. There is no abnormal intracranial enhancement. The lung apices ar e clear. No pneumothorax. Unremarkable thyroid. Degenerative changes of the cervical spine. IMPRESSION: 1. Atherosclerotic vascular disease. No aneurysm, dissection, high-grade stenosis or arterial occlusi on. 2. Atherosclerotic plaque of the carotid bulbs results in less than 50% stenosis bilaterally. ACT 112: Negative or not required by law. The above report was generated using voice recognition software. It may contain grammatical, syntax o r spelling errors. Electronically signed by: Jovanny Nolan M.D. 05/09/2022 7:27 PM
--- NOTE | 2022-05-09 19:34 | CT Scan Report ---
CT angio chest PE protocol CT DOSE: 2047.86 mGy.cm HISTORY: 72 years-old Male with ro PE. Acute strokelike symptoms with chest pain TECHNIQUE: Multiple CTA images of the chest were obtained after the intravenous administration of 112 ml Optiray. Coronal and sagittal MIPS were obtained from the axial data set and were submitted for review. All measurements were obtained according to NASCET criteria. A dose lowering technique was u tilized adhering to the principles of ALARA. COMPARISON: CTA head neck of same day FINDINGS: CTA: Moderate cardiomegaly. No pericardial effusion. Moderate coronary artery calcifications. Fusiform dil ation of the ascending thoracic aorta, 4.4 cm. Patency of the imaged great vessels. Respiratory motio n artifact limited evaluation of the pulmonary arterial tree. No central pulmonary emboli identified. The study is also limited secondary to contrast bolus timing. CT CHEST: Unremarkable thyroid. No lymphadenopathy. No pneumothorax, pleural effusion or overt pulmonary edema. Bilateral subsegmental groundglass densities suggest atelectasis. There are no suspicious pulmonary nodules or masses identified. The central airways are patent. No acute process of the imaged upper abdomen. There are a few scattered cysts within the left lobe of the liver measuring up to 2.2 cm. Unremarkable soft tissues. No acute fracture healed chronic anteri or fractures. IMPRESSION: 1. Motion degraded exam. No central pulmonary emboli identified. 2. Cardiomegaly with fusiform dilation of the ascending thoracic aorta, 4.4 cm. ACT 112: Negative or not required by law. The above report was generated using voice recognition software. It may contain grammatical, syntax o r spelling errors. Electronically signed by: Jovanny Nolan M.D. 05/09/2022 7:32 PM
[2022-05-09] MEDS ORDERED: LORazepam 2 MG/2 ML SYR IV STA (20:00)
[2022-05-09] MEDS ORDERED: MoRPHine SULFATE 4 MG/ML 1 ML CARP\\VIAL IV STA (20:00)
[2022-05-09] MEDS ORDERED: MoRPHine SULFATE 4 MG/ML 1 ML CARP\\VIAL ONE (20:01)
[2022-05-09] MEDS ORDERED: LIDO/EPINEPHRINE/SOD BICARB 20 ML VIAL INFIL ONE (20:05)
[2022-05-09 21:15] LABS: Total Protein CSF 36.9 mg/dl (15-45)
[2022-05-09] MEDS ORDERED: diphenhydrAMINE 50 MG/ML VIAL IV STA (21:23)
[2022-05-09] MEDS ORDERED: METOCLOPRAMIDE HCL INJ 5 MG/ML 2 ML VIAL IV ONE (21:23)
[2022-05-09 21:33] LABS: CSF Count Tube # 3
[2022-05-09 21:34] LABS: Appearance CSF Clear; CSF Xanthrochromic No xanthochromia; Color CSF Colorless; Red Blood Cell CSF (A) 12 /uL (0-); Red Blood Cell CSF (B) 10 /uL (0-); White Blood Cell CSF (A) 1 /uL (0-5); White Blood Cell CSF (B) 1 /uL (0-5)
[2022-05-09] MEDS ORDERED: MAGNESIUM SULFATE / D5W 1 GM/100 ML BAG IV STA (21:43)
[2022-05-09] MEDS ORDERED: SODIUM CHLORIDE 0.9% 1000ML 1,000 ML IV SCH (21:45)
--- NOTE | 2022-05-09 21:58 | Emergency Department Note ---
History of Present Illness General Chief Complaint: TIA Symptoms Stated Complaint: TIA SYMPTOMS, HEADACHE, DISORIENTED Time Seen by Provider: 05/09/22 17:44 History of Present Illness Provider complaint: + headache Time: 10:30 Onset description: + sudden Location: + diffuse Severity: moderate Maximum Pain Intensity: 4 Quality: + aching, + throbbing, + dull and + steady Relieved By: + nothing Exacerbated By: + none Context: + occurred at rest; no recent head injury, no tick bite, no new medication or no recent URI Associated symptoms: + fever; no nausea, no vomiting, no neck stiffness, no photophobia, no sensitivity to sound, no seizure, no eye pain, no syncope, no vision loss, no scotoma, no numbness, no weakness, no chest pain, no cough, no shortness of breath or no lightheadedness reports that the patient was slurring his words today. Home Medications Medication Instructions Recorded Confirmed Type amlodipine 5 mg tablet 5 mg PO [facility] 09/23/21 09/23/21 History lisinopril 20 mg tablet 20 mg PO [facility] 09/23/21 09/23/21 History loratadine 10 mg tablet 10 mg PO DAILY PRN Allergy Symptoms 09/23/21 09/23/21 History melatonin 10 mg tablet 10 mg PO HS 09/23/21 09/23/21 History metoprolol succinate 100 mg 100 mg PO DAILY 09/23/21 09/23/21 History tablet,extended release 24 hr multivitamin 1 tab PO [facility] 09/23/21 09/23/21 History omeprazole 20 mg capsule,delayed 20 mg PO [facility] 09/23/21 09/23/21 History release tamsulosin 0.4 mg capsule 0.8 mg PO HS 09/23/21 09/23/21 History Allergies Allergy/AdvReac Type Severity Reaction Status Date / Time mold Allergy Mild Congested Verified 09/23/21 15:52 dust Allergy Mild Congested Uncoded 09/23/21 15:52 pets Allergy Mild Congested Uncoded 09/23/21 15:52 Past Med/Surg History Medical History BPH (benign prostatic hyperplasia) Depression Environmental allergies Essential hypertension GERD (gastroesophageal reflux disease) Prostate CA Restless leg syndrome Surgical History H/O vasectomy History of hernia surgery History of total left knee replacement Hx of tonsillectomy Family History Father , age 62 Heart disease Mother , ~70 y/o Heart disease Stroke Social History Smoking Status: Never smoker Second Hand Exposure: No; Hx Alcohol Use: Yes Alcohol type: beer and hard liquor Hx Substance Use: No Preferred Language: Syriac Communication Ability: Effective 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 Beliefs That Will Affect Care: Zoroastrianism Current Living Situation: Significant Other Current Living Situation Comment: lives with fiance Feels Safe at Home: Yes Assistive Devices: None Review of Systems A total of 10 systems reviewed and were otherwise negative Physical Exam Vital Signs Vital Signs - 24 hr 05/09/22 17:22 05/09/22 17:44 05/09/22 17:35 Temperature 38.3 C H Temperature Source Temporal Artery Scan Pulse Rate 130 H Pulse Rate [Left Apical] Pulse Rate from SpO2 Sensor Pulse Rhythm [Left Apical] Pulse Strength [Left Apical] Respiratory Rate 20 Respiratory Effort / Characteristics Non-Labored Spontaneous Respiratory Depth Normal Respiratory Pattern Regular Blood Pressure 179/112 H 177/116 H Blood Pressure [Right Arm] Blood Pressure Mean 134 136 Blood Pressure Mean [Right Arm] Pulse Oximetry 92 88 L Oxygen Delivery Method Room Air Room Air Oxygen Flow Rate 0 Sepsis Recent Fever Within 48 Hours No Sepsis New/Unexplained Change in Mental Status No Sepsis Action Taken by Nursing No Action Required Oxygen Flow Rate - Titration 2 Pulse Oximetry Post Tiitration 94 05/09/22 17:35 05/09/22 18:00 05/09/22 18:00 Temperature Temperature Source Pulse Rate 118 H 121 H Pulse Rate [Left Apical] Pulse Rate from SpO2 Sensor 119 H Pulse Rhythm [Left Apical] Pulse Strength [Left Apical] Respiratory Rate 19 25 H Respiratory Effort / Characteristics Respiratory Depth Respiratory Pattern Blood Pressure 171/118 H Blood Pressure [Right Arm] Blood Pressure Mean 135 Blood Pressure Mean [Right Arm] Pulse Oximetry 95 Oxygen Delivery Method Nasal Cannula Oxygen Flow Rate 2 Sepsis Recent Fever Within 48 Hours Sepsis New/Unexplained Change in Mental Status Sepsis Action Taken by Nursing Oxygen Flow Rate - Titration Pulse Oximetry Post Tiitration 05/09/22 18:39 05/09/22 18:39 05/09/22 20:44 Temperature Temperature Source Pulse Rate Pulse Rate [Left Apical] 107 H Pulse Rate from SpO2 Sensor 115 H Pulse Rhythm [Left Apical] Regular Pulse Strength [Left Apical] Normal Respiratory Rate 16 Respiratory Effort / Characteristics Non-Labored Spontaneous Respiratory Depth Normal Respiratory Pattern Blood Pressure 167/105 H Blood Pressure [Right Arm] 142/97 H Blood Pressure Mean 125 Blood Pressure Mean [Right Arm] 112 Pulse Oximetry 91 92 Oxygen Delivery Method Nasal Cannula Nasal Cannula Oxygen Flow Rate 2 4 Sepsis Recent Fever Within 48 Hours Sepsis New/Unexplained Change in Mental Status Sepsis Action Taken by Nursing Oxygen Flow Rate - Titration Pulse Oximetry Post Tiitration 05/09/22 19:01 05/09/22 19:30 05/09/22 19:54 Temperature Temperature Source Pulse Rate 112 H 112 H 108 H Pulse Rate [Left Apical] Pulse Rate from SpO2 Sensor 111 H Pulse Rhythm [Left Apical] Pulse Strength [Left Apical] Respiratory Rate 28 H 24 17 Respiratory Effort / Characteristics Respiratory Depth Respiratory Pattern Blood Pressure Blood Pressure [Right Arm] Blood Pressure Mean Blood Pressure Mean [Right Arm] Pulse Oximetry 91 Oxygen Delivery Method Oxygen Flow Rate Sepsis Recent Fever Within 48 Hours Sepsis New/Unexplained Change in Mental Status Sepsis Action Taken by Nursing Oxygen Flow Rate - Titration Pulse Oximetry Post Tiitration 05/09/22 19:54 05/09/22 19:55 05/09/22 19:55 Temperature Temperature Source Pulse Rate 106 H Pulse Rate [Left Apical] Pulse Rate from SpO2 Sensor 106 H Pulse Rhythm [Left Apical] Pulse Strength [Left Apical] Respiratory Rate 30 H Respiratory Effort / Characteristics Respiratory Depth Respiratory Pattern Blood Pressure 153/108 H 166/107 H Blood Pressure [Right Arm] Blood Pressure Mean 123 126 Blood Pressure Mean [Right Arm] Pulse Oximetry 94 Oxygen Delivery Method Oxygen Flow Rate Sepsis Recent Fever Within 48 Hours Sepsis New/Unexplained Change in Mental Status Sepsis Action Taken by Nursing Oxygen Flow Rate - Titration Pulse Oximetry Post Tiitration 05/09/22 19:56 05/09/22 19:56 05/09/22 19:57 Temperature Temperature Source Pulse Rate 104 H 103 H Pulse Rate [Left Apical] Pulse Rate from SpO2 Sensor 104 H 107 H Pulse Rhythm [Left Apical] Pulse Strength [Left Apical] Respiratory Rate 23 20 Respiratory Effort / Characteristics Respiratory Depth Respiratory Pattern Blood Pressure 164/109 H Blood Pressure [Right Arm] Blood Pressure Mean 127 Blood Pressure Mean [Right Arm] Pulse Oximetry 93 93 Oxygen Delivery Method Oxygen Flow Rate Sepsis Recent Fever Within 48 Hours Sepsis New/Unexplained Change in Mental Status Sepsis Action Taken by Nursing Oxygen Flow Rate - Titration Pulse Oximetry Post Tiitration 05/09/22 19:57 05/09/22 19:58 05/09/22 19:58 Temperature Temperature Source Pulse Rate 106 H Pulse Rate [Left Apical] Pulse Rate from SpO2 Sensor 107 H Pulse Rhythm [Left Apical] Pulse Strength [Left Apical] Respiratory Rate 29 H Respiratory Effort / Characteristics Respiratory Depth Respiratory Pattern Blood Pressure 163/104 H 172/100 H Blood Pressure [Right Arm] Blood Pressure Mean 123 124 Blood Pressure Mean [Right Arm] Pulse Oximetry 94 Oxygen Delivery Method Oxygen Flow Rate Sepsis Recent Fever Within 48 Hours Sepsis New/Unexplained Change in Mental Status Sepsis Action Taken by Nursing Oxygen Flow Rate - Titration Pulse Oximetry Post Tiitration 05/09/22 19:59 05/09/22 19:59 05/09/22 20:00 Temperature Temperature Source Pulse Rate 107 H Pulse Rate [Left Apical] Pulse Rate from SpO2 Sensor 108 H Pulse Rhythm [Left Apical] Pulse Strength [Left Apical] Respiratory Rate 23 Respiratory Effort / Characteristics Respiratory Depth Respiratory Pattern Blood Pressure 157/113 H 155/107 H Blood Pressure [Right Arm] Blood Pressure Mean 127 123 Blood Pressure Mean [Right Arm] Pulse Oximetry 94 Oxygen Delivery Method Oxygen Flow Rate Sepsis Recent Fever Within 48 Hours Sepsis New/Unexplained Change in Mental Status Sepsis Action Taken by Nursing Oxygen Flow Rate - Titration Pulse Oximetry Post Tiitration 05/09/22 20:00 05/09/22 20:01 05/09/22 20:01 Temperature Temperature Source Pulse Rate 109 H 106 H Pulse Rate [Left Apical] Pulse Rate from SpO2 Sensor 108 H 107 H Pulse Rhythm [Left Apical] Pulse Strength [Left Apical] Respiratory Rate 21 22 Respiratory Effort / Characteristics Respiratory Depth Respiratory Pattern Blood Pressure 148/104 H Blood Pressure [Right Arm] Blood Pressure Mean 118 Blood Pressure Mean [Right Arm] Pulse Oximetry 93 93 Oxygen Delivery Method Oxygen Flow Rate Sepsis Recent Fever Within 48 Hours Sepsis New/Unexplained Change in Mental Status Sepsis Action Taken by Nursing Oxygen Flow Rate - Titration Pulse Oximetry Post Tiitration 05/09/22 20:02 05/09/22 20:02 05/09/22 20:03 Temperature Temperature Source Pulse Rate 112 H 112 H Pulse Rate [Left Apical] Pulse Rate from SpO2 Sensor 114 H 112 H Pulse Rhythm [Left Apical] Pulse Strength [Left Apical] Respiratory Rate 21 20 Respiratory Effort / Characteristics Respiratory Depth Respiratory Pattern Blood Pressure 161/115 H Blood Pressure [Right Arm] Blood Pressure Mean 130 Blood Pressure Mean [Right Arm] Pulse Oximetry 93 94 Oxygen Delivery Method Oxygen Flow Rate Sepsis Recent Fever Within 48 Hours Sepsis New/Unexplained Change in Mental Status Sepsis Action Taken by Nursing Oxygen Flow Rate - Titration Pulse Oximetry Post Tiitration 05/09/22 20:03 05/09/22 20:30 05/09/22 20:42 Temperature Temperature Source Pulse Rate 108 H Pulse Rate [Left Apical] Pulse Rate from SpO2 Sensor 120 H 108 H Pulse Rhythm [Left Apical] Pulse Strength [Left Apical] Respiratory Rate 22 Respiratory Effort / Characteristics Respiratory Depth Respiratory Pattern Blood Pressure 134/102 H Blood Pressure [Right Arm] Blood Pressure Mean 112 Blood Pressure Mean [Right Arm] Pulse Oximetry 93 93 Oxygen Delivery Method Oxygen Flow Rate Sepsis Recent Fever Within 48 Hours Sepsis New/Unexplained Change in Mental Status Sepsis Action Taken by Nursing Oxygen Flow Rate - Titration Pulse Oximetry Post Tiitration 05/09/22 20:42 05/09/22 20:45 05/09/22 20:45 Temperature Temperature Source Pulse Rate 105 H Pulse Rate [Left Apical] Pulse Rate from SpO2 Sensor 106 H Pulse Rhythm [Left Apical] Pulse Strength [Left Apical] Respiratory Rate 24 Respiratory Effort / Characteristics Respiratory Depth Respiratory Pattern Blood Pressure 142/97 H 142/86 H Blood Pressure [Right Arm] Blood Pressure Mean 112 104 Blood Pressure Mean [Right Arm] Pulse Oximetry 92 Oxygen Delivery Method Oxygen Flow Rate Sepsis Recent Fever Within 48 Hours Sepsis New/Unexplained Change in Mental Status Sepsis Action Taken by Nursing Oxygen Flow Rate - Titration Pulse Oximetry Post Tiitration 05/09/22 21:00 05/09/22 21:00 Temperature Temperature Source Pulse Rate 113 H Pulse Rate [Left Apical] Pulse Rate from SpO2 Sensor 110 H Pulse Rhythm [Left Apical] Pulse Strength [Left Apical] Respiratory Rate 22 Respiratory Effort / Characteristics Respiratory Depth Respiratory Pattern Blood Pressure 122/79 Blood Pressure [Right Arm] Blood Pressure Mean 93 Blood Pressure Mean [Right Arm] Pulse Oximetry 92 Oxygen Delivery Method Oxygen Flow Rate Sepsis Recent Fever Within 48 Hours Sepsis New/Unexplained Change in Mental Status Sepsis Action Taken by Nursing Oxygen Flow Rate - Titration Pulse Oximetry Post Tiitration Physical Exam GENERAL: He is oriented to person, place, and time. He appears well-developed and well-nourished. He does not appear distressed. HENT: Exam performed. - Head: Normocephalic and atraumatic. - Right Ear: External ear normal. No mastoid tenderness. - Left Ear: External ear normal. No mastoid tenderness. - Mouth/Throat: The oropharynx is clear and moist. No trismus in the jaw. No dental abscesses or uvula swelling. No oropharyngeal exudate or tonsillar abscesses. EYES: Conjunctivae and EOM are normal. Pupils are equal, round, and reactive to light. Right eye exhibits no discharge. Left eye exhibits no discharge. No scleral icterus. NECK: Normal range of motion. Neck supple. No JVD present. No spinous process tenderness present. No carotid bruit present. No rigidity. No tracheal deviation and normal range of motion present. No Brudzinski's sign and no Kernig's sign noted. CV: Normal rate, regular rhythm, normal heart sounds and intact distal pulses. There is no peripheral edema. Palpable radial pulses bue. PULM/CHEST: Effort normal and breath sounds normal. No respiratory distress. No stridor. He has no wheezes. He has no rales. - Chest Wall: He exhibits no tenderness. ABD: The abdomen is soft. Bowel sounds are normal. He has no distension. No mass is present. There is no tenderness. There is no rebound, no guarding, no Frazier's sign and no tenderness at McBurney's point. Rovsig negative. MUSC/SKEL: Normal range of motion. There is no peripheral edema, tenderness or deformity. LYMPH: No cervical adenopathy. NEURO: He is alert and oriented to person, place, and time. He has normal strength. No cranial nerve deficit or sensory deficit. Coordination and gait normal. GCS eye subscore is 4. GCS verbal subscore is 5. GCS motor subscore is 6. Cerebellar tests wnl. NIHSS: 0 SKIN: Skin is warm and dry. He is not diaphoretic. PSYCH: He has a normal mood and affect. Behavior is normal. Judgment and thought content normal. Procedures Lumbar Puncture Time Out Performed: Yes Patient Position: left lateral decubitus Local Anesthetic: lidocaine 1% and with epi Spinal Needle Gauge: 20G Interspace Used: L4-L5 Fluid Initially Obtained: clear Additional Comments: Multiple attempts were made. At first the patient was sitting upright and we are unable to obtain CSF studies the patient was placed in the left lateral decubitus position, multiple attempts were made again in the CSF was able to be obtained. The patient tolerated the procedure well. Status post the procedure the patient has motor and sensation in his bilateral lower extremities. Course Course 1743: The patient was evaluated in room A1. A complete history and physical exam was performed Administered Medications Sodium Chloride (Nss 1000ml) 1,000 mls @ 125 mls/hr IV .Q8H MENA Stop: 06/08/22 21:44 Last Admin: 05/09/22 21:51 Dose: 125 mls/hr Documented By: ANTONI Discontinued Medications Diphenhydramine HCl (Diphenhydramine 50 Mg/Ml Vial) 25 mg IV NOW STA Stop: 05/09/22 21:24 Last Admin: 05/09/22 21:51 Dose: 25 mg Documented By: ANTONI Acetaminophen (Ofirmev) 1,000 mg in 100 mls @ 400 mls/hr IV NOW STA Stop: 05/09/22 18:04 Last Infusion: 05/09/22 19:41 Dose: 0 mls/hr Documented By: Admin: 05/09/22 18:07 Dose: 400 mls/hr Documented By: JEFFERY Sodium Chloride (Nss 1000ml) 1,000 mls @ 999 mls/hr IV .Q1H1M ONE Stop: 05/09/22 18:50 Last Infusion: 05/09/22 19:42 Dose: 0 mls/hr Documented By: Admin: 05/09/22 18:07 Dose: 999 mls/hr Documented By: JEFFERY Ioversol (Optiray 300 500ml) 112 ml IV ONCE ONE Stop: 05/09/22 18:38 Last Admin: 05/09/22 18:39 Dose: 112 ml Documented By: CAS Lidocaine/Epinephrine (Lido/Epinephrine/Sod Bicarb 20 Ml Vial) Confirm Admini stered Dose 20 ml INFIL .STK-MED ONE Stop: 05/09/22 20:06 Last Admin: 05/09/22 20:47 Dose: Not Given Documented By: KIN Lorazepam (Lorazepam 2 Mg/2 Ml Syr) 2 mg IV NOW STA; Protocol Stop: 05/09/22 20:01 Last Admin: 05/09/22 20:15 Dose: 1 mg Documented By: TW Metoclopramide HCl (Metoclopramide Hcl Inj 5 Mg/Ml 2 Ml Vial) 5 mg IV ONE ONE Stop: 05/09/22 21:24 Last Admin: 05/09/22 21:51 Dose: 5 mg Documented By: ANTONI Morphine Sulfate (Morphine Sulfate 4 Mg/Ml 1 Ml Carp\Vial) 4 mg IV NOW STA Stop: 05/09/22 20:01 Last Admin: 05/09/22 20:15 Dose: 2 mg Documented By: TW Morphine Sulfate (Morphine Sulfate 4 Mg/Ml 1 Ml Carp\Vial) Confirm Administered Dose 4 mg .ROUTE .STK-MED ONE Stop: 05/09/22 20:02 Last Admin: 05/09/22 20:47 Dose: Not Given Documented By: KIN Medical Decision Making Laboratory Data Result diagrams: 05/09/22 17:35 05/09/22 17:35 Lab Results 05/09/22 05/09/22 05/09/22 Range/Units 17:35 17:35 17:35 WBC 19.42 H (4.8-10.8) K/ul RBC 5.00 (4.63-6.08) M/uL Hgb 15.4 (14.0-18.0) g/dl POC Hgb (14.0-18.0) g/dl Hct 44.7 (40.1-51.0) % POC Hct (42-52) % MCV 89.4 (80.0-100.0) fL MCH 30.8 (25.0-34.0) pg MCHC 34.5 (32.0-36.0) g/dL RDW Std Deviation 47.4 H (36.4-46.3) fL RDW Coeff of Carine 14.4 (11.5-14.5) % Plt Count 264 (130-400) K/uL MPV 11.2 (9.4-12.4) fL Immature Gran % (Auto) 0.4 % Neut % (Auto) 89.2 % Lymph % (Auto) 3.6 % [place] % (Auto) 6.3 % Eos % (Auto) 0.2 % Baso % (Auto) 0.3 % Neut # (Auto) 17.32 H (1.4-6.5) K/uL Lymph # (Auto) 0.70 L (1.2-3.4) K/uL [place] # (Auto) 1.23 H (0.24-0.82) K/uL Eos # (Auto) 0.04 (0-0.50) K/uL Baso # (Auto) 0.05 (0-0.2) K/uL Immature Gran # (Auto) 0.08 H (0.00-0.02) K/uL PT 11.4 (9.0-12.0) Seconds INR 1.1 (0.9-1.1) APTT 24.1 (21.0-31.0) Seconds PTT Ratio 0.9 ABG pH (7.35-7.45) ABG pCO2 (35-46) mmHg ABG pO2 (80-95) mmHg ABG HCO3 (19-24) mmol/L ABG O2 Saturation (90-95) % ABG Base Excess (-9-1.8) mEq/L Mars Test (Pos) Oxygen Given POC Sodium (135-144) mmol/L Sodium 135 L (136-145) mmol/L POC Potassium (3.3-5.0) mmol/L Potassium 3.8 (3.5-5.1) mmol/L POC Chloride (101-112) mmol/L Chloride 100 (98-107) mmol/L Carbon Dioxide 27 (21-32) mmol/L POC Total CO2 (24-31) mmol/L Anion Gap 8 (3-11) POC Anion Gap (16-25) mmol/L POC BUN (7-18) mg/dl BUN 17 (6-23) mg/dl Creatinine 1.25 (0.6-1.4) mg/dl POC Creatinine (0.6-1.3) mg/dl Est Cr Clr Drug Dosing 64.4 ml/min Est GFR ( Amer) 65.3 ml/min Est GFR (Non-Af Amer) 56.4 ml/min BUN/Creatinine Ratio 13.6 (10-20) Glucose 138 H (70-99(Fasting)) mg/dl POC Glucose (70-99) mg/dl POC Glucose (other) (70-99) mg/dl Lactate (0.4-2.0) mmol/L Calcium 9.4 (8.5-10.1) mg/dl POC Ioniz Calcium [place] (1.12-1.32) mmol/l Magnesium 1.5 L (1.7-2.4) mg/dl Total Bilirubin 1.2 H (0.2-1.0) mg/dl AST 15 (13-39) U/L ALT 16 (7-52) U/L Alkaline Phosphatase 55 (34-104) U/L Troponin I High Sens 19.9 (0-20) pg/ml Total Protein 6.8 (6.0-8.3) gm/dl Albumin 4.1 (3.4-5.0) gm/dl Globulin 2.7 (2.5-4.0) gm/dl Albumin/Globulin Ratio 1.5 (0.9-2) Procalcitonin (0-0.5) ng/ml Urine Color Urine Appearance (Clear) Urine pH (4.5-7.5) Ur Specific [place] (1.000-1.030) Urine Protein (Negative) Urine Glucose (UA) (Negative) Urine Ketones (Negative) Urine Blood (Negative) Urine Nitrite (Negative) Urine Bilirubin (Negative) Urine Urobilinogen (Negative) Ur Leukocyte Esterase (Negative) Fluid Comment CSF Appearance CSF Color Xanthrochromic CSF WBC (0-5) /uL CSF RBC (0-) /uL CSF Cell Count Tube # CSF Chemistry Tube # CSF Glucose (40-70) mg/dl CSF Total Protein (15-45) mg/dl CSF C.neoform/gat PCR (NotDetected) CSF CMV DNA (PCR) (NotDetected) CSF Enterovirus (PCR) (NotDetected) CSF E. coli K1 (PCR) (NotDetected) CSF H. influenzae (PCR) (NotDetected) CSF HSV I (PCR) (NotDetected) CSF HSV II (PCR) (NotDetected) CSF HHV 6 (PCR) (NotDetected) CSF L.monocytogenes PCR (NotDetected) CSF N. meningitidis PCR (NotDetected) CSF Parechovirus (PCR) (NotDetected) CSF S. agalactiae (PCR) (NotDetected) CSF S. pneumoniae (PCR) (NotDetected) CSF VZV DNA (PCR) (NotDetected) Urine Opiates Screen (Neg) Ur Methadone, Qual (Neg) Urine Barbiturates (Neg) Ur Phencyclidine (PCP) (Neg) U Amphetamin/Meth Scrn (Neg) MDMA (Ecstasy) Screen (Neg) U Benzodiazepines Scrn (Neg) Ur Cocaine Metabolite (Neg) U Marijuana (THC) Screen (Neg) Lyme Disease IgG Ab (Negative) Lyme Disease IgM Ab (Negative) SARS-CoV-2 (PCR) (Negative) Influenza Type A (PCR) (Neg) Influenza Type B (PCR) (Neg) RSV (RT-PCR) (Neg) Blood Type Antibody Screen 05/09/22 05/09/22 05/09/22 Range/Units 17:35 17:41 17:53 WBC (4.8-10.8) K/ul RBC (4.63-6.08) M/uL Hgb (14.0-18.0) g/dl POC Hgb 16.7 (14.0-18.0) g/dl Hct (40.1-51.0) % POC Hct 49 (42-52) % MCV (80.0-100.0) fL MCH (25.0-34.0) pg MCHC (32.0-36.0) g/dL RDW Std Deviation (36.4-46.3) fL RDW Coeff of Carine (11.5-14.5) % Plt Count (130-400) K/uL MPV (9.4-12.4) fL Immature Gran % (Auto) % Neut % (Auto) % Lymph % (Auto) % [place] % (Auto) % Eos % (Auto) % Baso % (Auto) % Neut # (Auto) (1.4-6.5) K/uL Lymph # (Auto) (1.2-3.4) K/uL [place] # (Auto) (0.24-0.82) K/uL Eos # (Auto) (0-0.50) K/uL Baso # (Auto) (0-0.2) K/uL Immature Gran # (Auto) (0.00-0.02) K/uL PT (9.0-12.0) Seconds INR (0.9-1.1) APTT (21.0-31.0) Seconds PTT Ratio ABG pH (7.35-7.45) ABG pCO2 (35-46) mmHg ABG pO2 (80-95) mmHg ABG HCO3 (19-24) mmol/L ABG O2 Saturation (90-95) % ABG Base Excess (-9-1.8) mEq/L [place] Test (Pos) Oxygen Given POC Sodium 137 (135-144) mmol/L Sodium (136-145) mmol/L POC Potassium 4.1 (3.3-5.0) mmol/L Potassium (3.5-5.1) mmol/L POC Chloride 99 L (101-112) mmol/L Chloride (98-107) mmol/L Carbon Dioxide (21-32) mmol/L POC Total CO2 24 (24-31) mmol/L Anion Gap (3-11) POC Anion Gap 19.0 (16-25) mmol/L POC BUN 17 (7-18) mg/dl BUN (6-23) mg/dl Creatinine (0.6-1.4) mg/dl POC Creatinine 1.2 (0.6-1.3) mg/dl Est Cr Clr Drug Dosing ml/min Est GFR ( Amer) ml/min Est GFR (Non-Af Amer) ml/min BUN/Creatinine Ratio (10-20) Glucose (70-99(Fasting)) mg/dl POC Glucose 128 H (70-99) mg/dl POC Glucose (other) 135 H (70-99) mg/dl Lactate (0.4-2.0) mmol/L Calcium (8.5-10.1) mg/dl POC Ioniz Calcium [place] 1.19 (1.12-1.32) mmol/l Magnesium (1.7-2.4) mg/dl Total Bilirubin (0.2-1.0) mg/dl AST (13-39) U/L ALT (7-52) U/L Alkaline Phosphatase (34-104) U/L Troponin I High Sens (0-20) pg/ml Total Protein (6.0-8.3) gm/dl Albumin (3.4-5.0) gm/dl Globulin (2.5-4.0) gm/dl Albumin/Globulin Ratio (0.9-2) Procalcitonin < 0.05 (0-0.5) ng/ml Urine Color Urine Appearance (Clear) Urine pH (4.5-7.5) Ur Specific [place] (1.000-1.030) Urine Protein (Negative) Urine Glucose (UA) (Negative) Urine Ketones (Negative) Urine Blood (Negative) Urine Nitrite (Negative) Urine Bilirubin (Negative) Urine Urobilinogen (Negative) Ur Leukocyte Esterase (Negative) Fluid Comment CSF Appearance CSF Color Xanthrochromic CSF WBC (0-5) /uL CSF RBC (0-) /uL CSF Cell Count Tube # CSF Chemistry Tube # CSF Glucose (40-70) mg/dl CSF Total Protein (15-45) mg/dl CSF C.neoform/gat PCR (NotDetected) CSF CMV DNA (PCR) (NotDetected) CSF Enterovirus (PCR) (NotDetected) CSF E. coli K1 (PCR) (NotDetected) CSF H. influenzae (PCR) (NotDetected) CSF HSV I (PCR) (NotDetected) CSF HSV II (PCR) (NotDetected) CSF HHV 6 (PCR) (NotDetected) CSF L.monocytogenes PCR (NotDetected) CSF N. meningitidis PCR (NotDetected) CSF Parechovirus (PCR) (NotDetected) CSF S. agalactiae (PCR) (NotDetected) CSF S. pneumoniae (PCR) (NotDetected) CSF VZV DNA (PCR) (NotDetected) Urine Opiates Screen (Neg) Ur Methadone, Qual (Neg) Urine Barbiturates (Neg) Ur Phencyclidine (PCP) (Neg) U Amphetamin/Meth Scrn (Neg) MDMA (Ecstasy) Screen (Neg) U Benzodiazepines Scrn (Neg) Ur Cocaine Metabolite (Neg) U Marijuana (THC) Screen (Neg) Lyme Disease IgG Ab Negative (Negative) Lyme Disease IgM Ab Negative (Negative) SARS-CoV-2 (PCR) (Negative) Influenza Type A (PCR) (Neg) Influenza Type B (PCR) (Neg) RSV (RT-PCR) (Neg) Blood Type Antibody Screen 05/09/22 05/09/22 05/09/22 Range/Units 17:59 18:06 18:06 WBC (4.8-10.8) K/ul RBC (4.63-6.08) M/uL Hgb (14.0-18.0) g/dl POC Hgb (14.0-18.0) g/dl Hct (40.1-51.0) % POC Hct (42-52) % MCV (80.0-100.0) fL MCH (25.0-34.0) pg MCHC (32.0-36.0) g/dL RDW Std Deviation (36.4-46.3) fL RDW Coeff of Carine (11.5-14.5) % Plt Count (130-400) K/uL MPV (9.4-12.4) fL Immature Gran % (Auto) % Neut % (Auto) % Lymph % (Auto) % [place] % (Auto) % Eos % (Auto) % Baso % (Auto) % Neut # (Auto) (1.4-6.5) K/uL Lymph # (Auto) (1.2-3.4) K/uL [place] # (Auto) (0.24-0.82) K/uL Eos # (Auto) (0-0.50) K/uL Baso # (Auto) (0-0.2) K/uL Immature Gran # (Auto) (0.00-0.02) K/uL PT (9.0-12.0) Seconds INR (0.9-1.1) APTT (21.0-31.0) Seconds PTT Ratio ABG pH 7.47 H (7.35-7.45) ABG pCO2 34 L (35-46) mmHg ABG pO2 78 L (80-95) mmHg ABG HCO3 25 H (19-24) mmol/L ABG O2 Saturation 96.9 H (90-95) % ABG Base Excess 1.5 (-9-1.8) mEq/L Mars Test POS (Pos) Oxygen Given ROOM AIR POC Sodium (135-144) mmol/L Sodium (136-145) mmol/L POC Potassium (3.3-5.0) mmol/L Potassium (3.5-5.1) mmol/L POC Chloride (101-112) mmol/L Chloride (98-107) mmol/L Carbon Dioxide (21-32) mmol/L POC Total CO2 (24-31) mmol/L Anion Gap (3-11) POC Anion Gap (16-25) mmol/L POC BUN (7-18) mg/dl BUN (6-23) mg/dl Creatinine (0.6-1.4) mg/dl POC Creatinine (0.6-1.3) mg/dl Est Cr Clr Drug Dosing ml/min Est GFR ( Amer) ml/min Est GFR (Non-Af Amer) ml/min BUN/Creatinine Ratio (10-20) Glucose (70-99(Fasting)) mg/dl POC Glucose (70-99) mg/dl POC Glucose (other) (70-99) mg/dl Lactate 1.0 (0.4-2.0) mmol/L Calcium (8.5-10.1) mg/dl POC Ioniz Calcium [place] (1.12-1.32) mmol/l Magnesium (1.7-2.4) mg/dl Total Bilirubin (0.2-1.0) mg/dl AST (13-39) U/L ALT (7-52) U/L Alkaline Phosphatase (34-104) U/L Troponin I High Sens (0-20) pg/ml Total Protein (6.0-8.3) gm/dl Albumin (3.4-5.0) gm/dl Globulin (2.5-4.0) gm/dl Albumin/Globulin Ratio (0.9-2) Procalcitonin (0-0.5) ng/ml Urine Color Urine Appearance (Clear) Urine pH (4.5-7.5) Ur Specific [place] (1.000-1.030) Urine Protein (Negative) Urine Glucose (UA) (Negative) Urine Ketones (Negative) Urine Blood (Negative) Urine Nitrite (Negative) Urine Bilirubin (Negative) Urine Urobilinogen (Negative) Ur Leukocyte Esterase (Negative) Fluid Comment CSF Appearance CSF Color Xanthrochromic CSF WBC (0-5) /uL CSF RBC (0-) /uL CSF Cell Count Tube # CSF Chemistry Tube # CSF Glucose (40-70) mg/dl CSF Total Protein (15-45) mg/dl CSF C.neoform/gat PCR (NotDetected) CSF CMV DNA (PCR) (NotDetected) CSF Enterovirus (PCR) (NotDetected) CSF E. coli K1 (PCR) (NotDetected) CSF H. influenzae (PCR) (NotDetected) CSF HSV I (PCR) (NotDetected) CSF HSV II (PCR) (NotDetected) CSF HHV 6 (PCR) (NotDetected) CSF L.monocytogenes PCR (NotDetected) CSF N. meningitidis PCR (NotDetected) CSF Parechovirus (PCR) (NotDetected) CSF S. agalactiae (PCR) (NotDetected) CSF S. pneumoniae (PCR) (NotDetected) CSF VZV DNA (PCR) (NotDetected) Urine Opiates Screen (Neg) Ur Methadone, Qual (Neg) Urine Barbiturates (Neg) Ur Phencyclidine (PCP) (Neg) U Amphetamin/Meth Scrn (Neg) MDMA (Ecstasy) Screen (Neg) U Benzodiazepines Scrn (Neg) Ur Cocaine Metabolite (Neg) U Marijuana (THC) Screen (Neg) Lyme Disease IgG Ab (Negative) Lyme Disease IgM Ab (Negative) SARS-CoV-2 (PCR) NEGATIVE (Negative) Influenza Type A (PCR) Negative (Neg) Influenza Type B (PCR) Negative (Neg) RSV (RT-PCR) Negative (Neg) Blood Type Antibody Screen 05/09/22 05/09/22 05/09/22 Range/Units 18:08 18:20 18:20 WBC (4.8-10.8) K/ul RBC (4.63-6.08) M/uL Hgb (14.0-18.0) g/dl POC Hgb (14.0-18.0) g/dl Hct (40.1-51.0) % POC Hct (42-52) % MCV (80.0-100.0) fL MCH (25.0-34.0) pg MCHC (32.0-36.0) g/dL RDW Std Deviation (36.4-46.3) fL RDW Coeff of Carine (11.5-14.5) % Plt Count (130-400) K/uL MPV (9.4-12.4) fL Immature Gran % (Auto) % Neut % (Auto) % Lymph % (Auto) % [place] % (Auto) % Eos % (Auto) % Baso % (Auto) % Neut # (Auto) (1.4-6.5) K/uL Lymph # (Auto) (1.2-3.4) K/uL [place] # (Auto) (0.24-0.82) K/uL Eos # (Auto) (0-0.50) K/uL Baso # (Auto) (0-0.2) K/uL Immature Gran # (Auto) (0.00-0.02) K/uL PT (9.0-12.0) Seconds INR (0.9-1.1) APTT (21.0-31.0) Seconds PTT Ratio ABG pH (7.35-7.45) ABG pCO2 (35-46) mmHg ABG pO2 (80-95) mmHg ABG HCO3 (19-24) mmol/L ABG O2 Saturation (90-95) % ABG Base Excess (-9-1.8) mEq/L [place] Test (Pos) Oxygen Given POC Sodium (135-144) mmol/L Sodium (136-145) mmol/L POC Potassium (3.3-5.0) mmol/L Potassium (3.5-5.1) mmol/L POC Chloride (101-112) mmol/L Chloride (98-107) mmol/L Carbon Dioxide (21-32) mmol/L POC Total CO2 (24-31) mmol/L Anion Gap (3-11) POC Anion Gap (16-25) mmol/L POC BUN (7-18) mg/dl BUN (6-23) mg/dl Creatinine (0.6-1.4) mg/dl POC Creatinine (0.6-1.3) mg/dl Est Cr Clr Drug Dosing ml/min Est GFR ( Amer) ml/min Est GFR (Non-Af Amer) ml/min BUN/Creatinine Ratio (10-20) Glucose (70-99(Fasting)) mg/dl POC Glucose (70-99) mg/dl POC Glucose (other) (70-99) mg/dl Lactate (0.4-2.0) mmol/L Calcium (8.5-10.1) mg/dl POC Ioniz Calcium [place] (1.12-1.32) mmol/l Magnesium (1.7-2.4) mg/dl Total Bilirubin (0.2-1.0) mg/dl AST (13-39) U/L ALT (7-52) U/L Alkaline Phosphatase (34-104) U/L Troponin I High Sens (0-20) pg/ml Total Protein (6.0-8.3) gm/dl Albumin (3.4-5.0) gm/dl Globulin (2.5-4.0) gm/dl Albumin/Globulin Ratio (0.9-2) Procalcitonin (0-0.5) ng/ml Urine Color Yellow Urine Appearance Clear (Clear) Urine pH 6.0 (4.5-7.5) Ur Specific [place] 1.021 (1.000-1.030) Urine Protein Negative (Negative) Urine Glucose (UA) Negative (Negative) Urine Ketones Negative (Negative) Urine Blood Negative (Negative) Urine Nitrite Negative (Negative) Urine Bilirubin Negative (Negative) Urine Urobilinogen Negative (Negative) Ur Leukocyte Esterase Negative (Negative) Fluid Comment CSF Appearance CSF Color Xanthrochromic CSF WBC (0-5) /uL CSF RBC (0-) /uL CSF Cell Count Tube # CSF Chemistry Tube # CSF Glucose (40-70) mg/dl CSF Total Protein (15-45) mg/dl CSF C.neoform/gat PCR (NotDetected) CSF CMV DNA (PCR) (NotDetected) CSF Enterovirus (PCR) (NotDetected) CSF E. coli K1 (PCR) (NotDetected) CSF H. influenzae (PCR) (NotDetected) CSF HSV I (PCR) (NotDetected) CSF HSV II (PCR) (NotDetected) CSF HHV 6 (PCR) (NotDetected) CSF L.monocytogenes PCR (NotDetected) CSF N. meningitidis PCR (NotDetected) CSF Parechovirus (PCR) (NotDetected) CSF S. agalactiae (PCR) (NotDetected) CSF S. pneumoniae (PCR) (NotDetected) CSF VZV DNA (PCR) (NotDetected) Urine Opiates Screen Neg (Neg) Ur Methadone, Qual Neg (Neg) Urine Barbiturates Neg (Neg) Ur Phencyclidine (PCP) Neg (Neg) U Amphetamin/Meth Scrn Neg (Neg) MDMA (Ecstasy) Screen Neg (Neg) U Benzodiazepines Scrn Neg (Neg) Ur Cocaine Metabolite Neg (Neg) U Marijuana (THC) Screen Neg (Neg) Lyme Disease IgG Ab (Negative) Lyme Disease IgM Ab (Negative) SARS-CoV-2 (PCR) (Negative) Influenza Type A (PCR) (Neg) Influenza Type B (PCR) (Neg) RSV (RT-PCR) (Neg) Blood Type A Negative Antibody Screen NEGATIVE 05/09/22 05/09/22 05/09/22 Range/Units 20:41 20:41 20:41 WBC (4.8-10.8) K/ul RBC (4.63-6.08) M/uL Hgb (14.0-18.0) g/dl POC Hgb (14.0-18.0) g/dl Hct (40.1-51.0) % POC Hct (42-52) % MCV (80.0-100.0) fL MCH (25.0-34.0) pg MCHC (32.0-36.0) g/dL RDW Std Deviation (36.4-46.3) fL RDW Coeff of Carine (11.5-14.5) % Plt Count (130-400) K/uL MPV (9.4-12.4) fL Immature Gran % (Auto) % Neut % (Auto) % Lymph % (Auto) % [place] % (Auto) % Eos % (Auto) % Baso % (Auto) % Neut # (Auto) (1.4-6.5) K/uL Lymph # (Auto) (1.2-3.4) K/uL [place] # (Auto) (0.24-0.82) K/uL Eos # (Auto) (0-0.50) K/uL Baso # (Auto) (0-0.2) K/uL Immature Gran # (Auto) (0.00-0.02) K/uL PT (9.0-12.0) Seconds INR (0.9-1.1) APTT (21.0-31.0) Seconds PTT Ratio ABG pH (7.35-7.45) ABG pCO2 (35-46) mmHg ABG pO2 (80-95) mmHg ABG HCO3 (19-24) mmol/L ABG O2 Saturation (90-95) % ABG Base Excess (-9-1.8) mEq/L [place] Test (Pos) Oxygen Given POC Sodium (135-144) mmol/L Sodium (136-145) mmol/L POC Potassium (3.3-5.0) mmol/L Potassium (3.5-5.1) mmol/L POC Chloride (101-112) mmol/L Chloride (98-107) mmol/L Carbon Dioxide (21-32) mmol/L POC Total CO2 (24-31) mmol/L Anion Gap (3-11) POC Anion Gap (16-25) mmol/L POC BUN (7-18) mg/dl BUN (6-23) mg/dl Creatinine (0.6-1.4) mg/dl POC Creatinine (0.6-1.3) mg/dl Est Cr Clr Drug Dosing ml/min Est GFR ( Amer) ml/min Est GFR (Non-Af Amer) ml/min BUN/Creatinine Ratio (10-20) Glucose (70-99(Fasting)) mg/dl POC Glucose (70-99) mg/dl POC Glucose (other) (70-99) mg/dl Lactate (0.4-2.0) mmol/L Calcium (8.5-10.1) mg/dl POC Ioniz Calcium [place] (1.12-1.32) mmol/l Magnesium (1.7-2.4) mg/dl Total Bilirubin (0.2-1.0) mg/dl AST (13-39) U/L ALT (7-52) U/L Alkaline Phosphatase (34-104) U/L Troponin I High Sens (0-20) pg/ml Total Protein (6.0-8.3) gm/dl Albumin (3.4-5.0) gm/dl Globulin (2.5-4.0) gm/dl Albumin/Globulin Ratio (0.9-2) Procalcitonin (0-0.5) ng/ml Urine Color Urine Appearance (Clear) Urine pH (4.5-7.5) Ur Specific [place] (1.000-1.030) Urine Protein (Negative) Urine Glucose (UA) (Negative) Urine Ketones (Negative) Urine Blood (Negative) Urine Nitrite (Negative) Urine Bilirubin (Negative) Urine Urobilinogen (Negative) Ur Leukocyte Esterase (Negative) Fluid Comment CSF Appearance Clear CSF Color Colorless Xanthrochromic No xanthochromia CSF WBC 1 (0-5) /uL CSF RBC 12 (0-) /uL CSF Cell Count Tube # 3 CSF Chemistry Tube # 1 CSF Glucose 75 H (40-70) mg/dl CSF Total Protein 36.9 (15-45) mg/dl CSF C.neoform/gat PCR Not Detected (NotDetected) CSF CMV DNA (PCR) Not Detected (NotDetected) CSF Enterovirus (PCR) Not Detected (NotDetected) CSF E. coli K1 (PCR) Not Detected (NotDetected) CSF H. influenzae (PCR) Not Detected (NotDetected) CSF HSV I (PCR) Not Detected (NotDetected) CSF HSV II (PCR) Not Detected (NotDetected) CSF HHV 6 (PCR) Not Detected (NotDetected) CSF L.monocytogenes PCR Not Detected (NotDetected) CSF N. meningitidis PCR Not Detected (NotDetected) CSF Parechovirus (PCR) Not Detected (NotDetected) CSF S. agalactiae (PCR) Not Detected (NotDetected) CSF S. pneumoniae (PCR) Not Detected (NotDetected) CSF VZV DNA (PCR) Not Detected (NotDetected) Urine Opiates Screen (Neg) Ur Methadone, Qual (Neg) Urine Barbiturates (Neg) Ur Phencyclidine (PCP) (Neg) U Amphetamin/Meth Scrn (Neg) MDMA (Ecstasy) Screen (Neg) U Benzodiazepines Scrn (Neg) Ur Cocaine Metabolite (Neg) U Marijuana (THC) Screen (Neg) Lyme Disease IgG Ab (Negative) Lyme Disease IgM Ab (Negative) SARS-CoV-2 (PCR) (Negative) Influenza Type A (PCR) (Neg) Influenza Type B (PCR) (Neg) RSV (RT-PCR) (Neg) Blood Type Antibody Screen Imaging Data Radiologist's Impression: Chest X-Ray 05/09/22 17:44 XR chest 1V portable HISTORY: Stroke Like Symptoms COMPARISON: Chest 09/23/2021. FINDINGS: No pneumothorax. The largest. There is progressive interstitial/vascular thickening consistent with mild congestive change. There is an old, healed left clavicle fracture. A few left basilar linear densities persist and favor subsegmental atelectasis or scarring. IMPRESSION: Interval progression of the mild congestive change. ACT 112: Negative or not required by law. Electronically signed by: Gui North M.D. 05/09/2022 6:[address] 05/09/22 17:44 CT head/brain wo con CLINICAL HISTORY: 72 years-old Male with Stroke Like Symptoms. Acute strokelike symptoms TECHNIQUE: Multiple axial CT images of the head were obtained without contrast. A dose lowering technique was utilized adhering to the principles of ALARA. COMPARISON: CTA head and neck of same day, brain MRI 09/23/2021 FINDINGS: No acute intracranial hemorrhage, midline shift, intracranial mass, hydrocephalus, territorial ischemia or abnormal extra-axial collection. Involutional changes with mild ex vacuo ventriculomegaly. White matter hypodensities suggestive of chronic microvascular ischemic disease. Cerebral vascular calcifications. The calvarium is intact. The paranasal sinuses, mastoid air cells, and middle ear cavities are clear. IMPRESSION: No acute intracranial abnormality. ACT 112: Negative or not required by law. The above report was generated using voice recognition software. It may contain grammatical, syntax or spelling errors. Electronically signed by: Jovanny Nolan M.D. 05/09/2022 7:15 PM Head CTA 05/09/22 17:44 CT angio neck with con, CT angio head w con CLINICAL HISTORY: 72 years-old Male with Stroke Like Symptoms. Acute stroke like symptoms COMPARISON STUDY: Head CT of same day, CTA head and neck 09/23/2021 TECHNIQUE: Following the IV administration of 112 now of Optiray, CT angiogram of the head and neck was performed from the aortic arch to the skull apex. Images are reviewed in the axial, sagittal, and coronal planes. 3-D MIPS images are created and assessed. IV contrast was administered without complication. All measurements were calculated based on NASCET criteria. A dose lowering technique was utilized adhering to the principles of ALARA. FINDINGS: Atherosclerosis of the thoracic aorta. Patency of the innominate and imaged subclavian arteries. Mild atherosclerosis of the common carotid arteries. Atherosclerotic plaque of the left greater than right carotid bulbs results in less than 50% stenosis bilaterally. Study is mildly motion degraded. The internal carotid, middle and anterior cerebral arteries are patent bilaterally. Patent and codominant vertebral arteries. There is atherosclerotic plaque at the origin of the left vertebral artery which results in mild stenosis, suboptimally visualized secondary to motion artifact. The basilar and posterior cerebral arteries are patent. There is origin of the right posterior cerebral artery. The cerebral venous sinuses are patent. There is no abnormal intracranial enhancement. The lung apices are clear. No pneumothorax. Unremarkable thyroid. Degenerative changes of the cervical spine. IMPRESSION: 1. Atherosclerotic vascular disease. No aneurysm, dissection, high-grade stenosis or arterial occlusion. 2. Atherosclerotic plaque of the carotid bulbs results in less than 50% stenosis bilaterally. ACT 112: Negative or not required by law. The above report was generated using voice recognition software. It may contain grammatical, syntax or spelling errors. Electronically signed by: Jovanny Nolan M.D. 05/09/2022 7:27 PM Neck CTA 05/09/22 17:44 CT angio neck with con, CT angio head w con CLINICAL HISTORY: 72 years-old Male with Stroke Like Symptoms. Acute stroke like symptoms COMPARISON STUDY: Head CT of same day, CTA head and neck 09/23/2021 TECHNIQUE: Following the IV administration of 112 now of Optiray, CT angiogram of the head and neck was performed from the aortic arch to the skull apex. Images are reviewed in the axial, sagittal, and coronal planes. 3-D MIPS images are created and assessed. IV contrast was administered without complication. All measurements were calculated based on NASCET criteria. A dose lowering technique was utilized adhering to the principles of ALARA. FINDINGS: Atherosclerosis of the thoracic aorta. Patency of the innominate and imaged subclavian arteries. Mild atherosclerosis of the common carotid arteries. Atherosclerotic plaque of the left greater than right carotid bulbs results in less than 50% stenosis bilaterally. Study is mildly motion degraded. The internal carotid, middle and anterior cerebral arteries are patent bilaterally. Patent and codominant vertebral arteries. There is atherosclerotic plaque at the origin of the left vertebral artery which results in mild stenosis, suboptimally visualized secondary to motion artifact. The basilar and posterior cerebral ar teries are patent. There is origin of the right posterior cerebral artery. The cerebral venous sinuses are patent. There is no abnormal intracranial enhancement. The lung apices are clear. No pneumothorax. Unremarkable thyroid. Degenerative changes of the cervical spine. IMPRESSION: 1. Atherosclerotic vascular disease. No aneurysm, dissection, high-grade stenosis or arterial occlusion. 2. Atherosclerotic plaque of the carotid bulbs results in less than 50% stenosis bilaterally. ACT 112: Negative or not required by law. The above report was generated using voice recognition software. It may contain grammatical, syntax or spelling errors. Electronically signed by: Jovanny Nolan M.D. 05/09/2022 7:27 PM Chest CTA 05/09/22 17:48 CT angio chest PE protocol CT DOSE: 2047.86 mGy.cm HISTORY: 72 years-old Male with ro PE. Acute strokelike symptoms with chest pain TECHNIQUE: Multiple CTA images of the chest were obtained after the intravenous administration of 112 ml Optiray. Coronal and sagittal MIPS were obtained from the axial data set and were submitted for review. All measurements were obtained according to NASCET criteria. A dose lowering technique was utilized adhering to the principles of ALARA. COMPARISON: CTA head neck of same day FINDINGS: CTA: Moderate cardiomegaly. No pericardial effusion. Moderate coronary artery calcifications. Fusiform dilation of the ascending thoracic aorta, 4.4 cm. Pat ency of the imaged great vessels. Respiratory motion artifact limited evaluation of the pulmonary arterial tree. No central pulmonary emboli identified. The study is also limited secondary to contrast bolus timing. CT CHEST: Unremarkable thyroid. No lymphadenopathy. No pneumothorax, pleural effusion or overt pulmonary edema. Bilateral subsegmental groundglass densities suggest atelectasis. There are no suspicious pulmonary nodules or masses identified. The central airways are patent. No acute process of the imaged upper abdomen. There are a few scattered cysts within the left lobe of the liver measuring up to 2.2 cm. Unremarkable soft tissues. No acute fracture healed chronic anterior fractures. IMPRESSION: 1. Motion degraded exam. No central pulmonary emboli identified. 2. Cardiomegaly with fusiform dilation of the ascending thoracic aorta, 4.4 cm. ACT 112: Negative or not required by law. The above report was generated using voice recognition software. It may contain grammatical, syntax or spelling errors. Electronically signed by: Jovanny Nolan M.D. 05/09/2022 7:32 PM ECG Data Indication: other (headache) Rate (beats per minute): 119 Rhythm: sinus tachycardia Findings: no ST depression, no ST elevation or no prolonged QT MDM Narrative Cardiac monitoring: An order was placed for continuous cardiac monitoring. The monitor shows a rate of 110 with sinus rhythm Patient was found to be hypoxic and febrile on room air. Supplemental oxygen was applied to the patient via nasal cannula which improved his oxygen saturation. No stroke alert was called as the patient has an NIHSS of 0 and it is thought it is most likely an infectious cause causing his headache and hypoxia. Sepsis protocol was initiated. Labs showed a white blood cell count of 19.4. Lactic acid within normal limits. Magnesium 1.5 will be repleted in the emergency department. Procalcitonin negative. Urinalysis negative. COVID PCR influenza RSV and Negative. CTA of the head and neck was negative for any stroke or significant occlusion. CTA of the chest negative for PE or any infiltrate. There is incidental mention of a fusiform dilatation of the ascending thoracic aorta. Given there is still no source of the patient's fever and the patient still reporting headache, lumbar puncture was performed. See procedure note. CSF was clear. Lumbar puncture showed a CSF glucose of 75, CSF protein of 36.9, CSF white blood cell 1 CSF red blood cell 12. Based off of these results it is not thought that the patient is having meningitis or encephalitis. No antibiotics or antivirals will be given. CSF bio fire ordered and negative. Discussed the case with [facility] hospitalist Dr. Diaz who will admit the patient. Impression & Plan Hypoxia, Headache Critical Care Time Critical Care Time: Yes Total Critical Care Time: 47 I have personally spent greater than 47 minutes of critical care time in the direct management of this patient. This includes bedside care, interpretation of diagnostic studies, and testing, discussion with consultants, patient, and family members, and other required patient management activities. This 47 minutes is in excess of all separately billable procedures. Discharge Plan Visit Data Chief Complaint: TIA Symptoms Stated Complaint: TIA SYMPTOMS, HEADACHE, DISORIENTED ED Provider: Carlos Enrique Low Discharge Problem: Hypoxia, Headache Patient Disposition: Admitted As Inpatient Forms Stand Alone Forms: [facility] Prescriptions Prescriptions: No Action multivitamin Tablet 1 tab PO QAM lisinopril 20 mg tablet 20 mg PO QAM amlodipine 5 mg tablet 5 mg PO QAM tamsulosin 0.4 mg capsule 0.8 mg PO HS omeprazole 20 mg capsule,delayed release(DR/EC) 20 mg PO QAM melatonin 10 mg Tablet 10 mg PO HS metoprolol succinate 100 mg Tablet Extended Release 24 Hr 100 mg PO DAILY loratadine 10 mg Tablet 10 mg PO DAILY PRN (Reason: Allergy Symptoms) Referrals Referrals: Osito Alfaro MD [Primary Care Provider] - : Headache Qualifiers: Headache type: unspecified Headache chronicity pattern: acute headache Intractability: not intractable Qualified Code(s): R51.9 - Headache, unspecified
[2022-05-09 22:14] LABS: Cryptococcus neoformans/ga PCR Not Detected (NotDetected); Cytomegalovirus PCR Not Detected (NotDetected); Enterovirus PCR Not Detected (NotDetected); Escherichia coli K1 PCR Not Detected (NotDetected); Haemophilius influenzae PCR Not Detected (NotDetected); Herpes Simplex Virus 1 PCR Not Detected (NotDetected); Herpes Simplex Virus 2 PCR Not Detected (NotDetected); Human Herpes Virus 6 PCR Not Detected (NotDetected); Human Parechovirus PCR Not Detected (NotDetected); Listeria monocytogenes PCR Not Detected (NotDetected); Neisseria meningitidis PCR Not Detected (NotDetected); Streptococcus agalactiae PCR Not Detected (NotDetected); Streptococcus pneumoniae PCR Not Detected (NotDetected); Varicella Zoster Virus PCR Not Detected (NotDetected)
[2022-05-10] MEDS ORDERED: POLYETHYLENE (MIRALAX) 17 GM PACK PO PRN (00:19)
[2022-05-10] MEDS ORDERED: LORATADINE 10 MG TAB PO PRN (00:19)
[2022-05-10] MEDS ORDERED: SODIUM CHLORIDE 0.9% 1000ML 1,000 ML IV SCH (00:19)
[2022-05-10] MEDS ORDERED: VANCOMYCIN CONSULT ACTIVE PRN (00:19)
[2022-05-10] MEDS ORDERED: NITROGLYCERIN SL 0.4 MG/TAB TAB SL PRN (00:19)
[2022-05-10] MEDS ORDERED: PHARMACIST DISCHARGE MED REC CONSULT PRN (00:19)
[2022-05-10] MEDS ORDERED: INFLUENZA VACCINE HIGH DOSE PF 65+ 0.7 ML SYR IM ONE (00:40)
--- NOTE | 2022-05-10 00:49 | History and Physical Report ---
DATE OF ADMISSION: 05/09/2022. CHIEF COMPLAINT: Headache, dizziness, imbalance and fever. HISTORY OF PRESENT ILLNESS: A 72-year-old male with past medical history significant for hypertension, history of prostate cancer, BPH, restless leg syndrome, depression, nocturia, history of impotence recently, on 03/17/2022 having insertion of penile prosthesis inflatable, presents with fever and headache. The patient has had a headache in the morning and at around 3:30 p.m., as per the , he started having dizziness and he could not walk and also developed fever. That is the reason, he was brought in here. The patient also has some cough. No runny nose, no sore throat, no difficulty swallowing, alert and oriented. No blurred visions, no earaches, no chest pain. The patient was requiring oxygen in the ER, but denies any shortness of breath. No nausea, no vomiting, no abdominal pain. Normal bowel and bladder movements. He says he has been micturating a lot. Denies any burning micturition, no swelling in the legs, no rash seen. Currently, resting comfortably. He says headache is better but still has some.. ALLERGIES: MOLD, DUST, CATS. PAST MEDICAL HISTORY: As mentioned above. PAST SURGICAL HISTORY: Left total knee arthroplasty, insertion of penile prosthesis inflatable, tonsillectomy, vasectomy. MEDICATIONS: The patient is on amlodipine 5 mg p.o. daily, lisinopril 20 mg p.o. daily, loratadine 10 mg p.o. daily p.r.n., melatonin 10 mg p.o. at bedtime, metoprolol succinate 100 mg p.o. daily, multivitamin 1 tablet p.o. daily, omeprazole 20 mg p.o. daily, Flomax 0.4 mg p.o. at bedtime. FAMILY HISTORY: No family history on file. SOCIAL HISTORY: No smoking. Alcohol, rarely. No drug use. REVIEW OF SYSTEMS: As per HPI. Rest of review of systems is negative. PHYSICAL EXAMINATION: GENERAL: The patient is alert and oriented, not in acute distress. VITAL SIGNS: Temperature 38.3, pulse of 130, respiratory rate 22, blood pressure 122/70, oxygen 92% on 4 L. HEENT: Pupils equal, round and reactive to light. Oral mucosa moist. NECK: No JVD, no neck masses. CARDIOVASCULAR: S1 and S2 heard. Regular rate and rhythm. No murmur, no gallop. RESPIRATORY SYSTEM: Normal AP diameter. No accessory muscle use. No wheezing, no crackles. ABDOMEN: Soft, bowel sounds present, nontender, no distention. CENTRAL NERVOUS SYSTEM: Alert and oriented x3. Speech is clear. No facial droop. Power 5/5 in all extremities. Sensation is intact. No pronator drift. Coordination of movements normal. Vtpryn-sp-elxy test normal. Position sense intact. EXTREMITIES: No edema, no erythema. LABORATORY DATA: WBC 19.4, hemoglobin 15.4, hematocrit 44.7, platelets 264. PT 11.4, INR 1.1, APTT 24.1. ABG, pH of 7.47, pCO2 of 34, pO2 of 78, bicarbonate 25, oxygen 96%. Sodium 135, potassium 3.8, chloride 100, CO2 of 27, BUN 17, creatinine 1.25, serum glucose 138. Lactate 1, calcium 9.4, magnesium 1.5, total bilirubin 1.2, AST 15, ALT 16, alkaline phosphatase 54. Troponin I high sensitivity 19.9. Procalcitonin less than 0.05. Urinalysis negative. CSF studies: Glucose 75. WBC 1, total protein 36.9. Urine tox screen negative. Lyme screen negative. SARS-CoV-2 PCR negative. Influenza A and B PCR negative. RSV PCR negative. IMAGING DATA: Chest CTA: Cardiomegaly with fusiform dilatation of ascending thoracic aorta, 4.4 cm. No pulmonary emboli identified. Neck CTA atherosclerotic cardiovascular disease. No aneurysm, dissection or high-grade stenosis or arterial occlusion, atherosclerotic plaque of the carotid bulbs with less than 50% stenosis bilaterally. CT of the head without contrast, no acute findings. Chest x-ray, mild congestion EKG: Sinus tachycardia at a rate of 119, left anterior fascicular block, no acute ST changes seen. ASSESSMENT AND PLAN: This is a 72-year-old male who presents with a questionable stroke-like symptoms and also fever. 1. Headache and dizziness, imbalance. CTA of the head and neck and CT Head were unremarkable. The patient's exam is okay. We will complete his studies with MRI scan, echo and neuro consult in a.m. Follow the results. 2. Fever with headache. CSF was unremarkable. White count of 19 and had temperature spike. Lyme screen negative. COVID negative. Imaging studies are unremarkable. Empirically starting on vancomycin and cefepime for 48 hours and stop order. Follow the cultures. If not improving, consider consulting ID. 3. Hypoxia: The patient was given IV fluids, oxygen. Chest x-ray shows mild congestion.ABG ok.On gentle fluids. CTA chest ok. Follow echocardiogram. 4. History of hypertension: Continue her home medication of amlodipine, lisinopril, metoprolol. Monitor the blood pressure. 5. History of prostate cancer s/p radiation treatment. 6. History of benign prostatic hypertrophy: On Flomax. 7. Gastroesophageal reflux disease: On omeprazole. 8. Thoracic aorta aneurysm. Followup. 9. Deep venous thrombosis prophylaxis: Placed on Lovenox. DISPOSITION: Closely monitor in tele floor. Level 1 full code. Expect to discharge home and follow with family doctor. Job ID: [id number] [facility]
[2022-05-10] MEDS ORDERED: VANCOMYCIN HCL 2,000 MG in SODIUM CHLORIDE 0.9% 500 ML IV ONE (01:00)
[2022-05-10] MEDS ORDERED: GADOBUTROL 65ML VIAL IV ONE (01:32)
[2022-05-10] MEDS: CEFEPIME 2,000 MG in SYRINGE 0 ML IV SCH ×3 (01:45→17:16)
[2022-05-10 05:21] LABS: Hematocrit (blood only) 40.3 % (40.1-51.0); Hemoglobin 13.9 g/dl (14.0-18.0); Mean Corpuscular Hgb Conc 34.5 g/dL (32.0-36.0); Mean Corpuscular Volume 86.9 fL (80.0-100.0); Mean Platelet Volume 11.2 fL (9.4-12.4); Platelet Count 233 K/uL (130-400); RDW Coefficient of Variation 14.6 % (11.5-14.5); RDW Standard Deviation 46.5 fL (36.4-46.3); Red Blood Count 4.64 M/uL (4.63-6.08)
[2022-05-10 05:46] LABS: BUN Creatinine Ratio 15.2 (10-20); Calcium 8.6 mg/dl (8.5-10.1); Chol HDL Ratio 2.7 (0-5); Creatinine Clr Calc Pharmacy 70.7 ml/min; Est GFR (African American) 74.6 ml/min; Est GFR (Non-African American) 64.4 ml/min; Magnesium 1.7 mg/dl (1.7-2.4); Potassium 3.8 mmol/L (3.5-5.1)
[2022-05-10 05:54] LABS: Basophils # (auto) 0.06 K/uL (0-0.2); Basophils % (auto) 0.2 %; Eosinophils # (auto) 0.04 K/uL (0-0.50); Eosinophils % (auto) 0.2 %; Immature Granulocytes # (auto) 0.11 K/uL (0.00-0.02); Immature Granulocytes % (auto) 0.4 %; Lymphocytes # (auto) 1.24 K/uL (1.2-3.4); Monocytes # (auto) 2.09 K/uL (0.24-0.82); Monocytes % (auto) 8.4 %; Neutrophils # (auto) 21.36 K/uL (1.4-6.5); Neutrophils % (auto) 85.8 %; RBC Morphology Unremarkable
[2022-05-10] MEDS: ENOXAPARIN INJ 40 MG/0.4 ML SYR SQ SCH (06:41)
--- NOTE | 2022-05-10 07:29 | Magnetic Resonance Report ---
MRI OF THE BRAIN COMBO CLINICAL HISTORY: Gait imbalance. Headache. COMPARISON STUDY: CT of the brain dated 05/09/2022. TECHNIQUE: MRI of the brain was performed utilizing various T1 and T2-weighted sequences in the axial , sagittal, and coronal planes. Contrast-enhanced sequences were acquired following the administratio n of 10 cc of Gadavist. FINDINGS: Brain parenchyma: There is age-related involutional change noting mild subcortical and periventricula r microangiopathic disease. There is no hemorrhage or mass effect. There is no restricted diffusion t o suggest acute ischemia. A developmental venous anomaly is incidentally noted in the right parietal cortex. No enhancing mass lesion is identified on the postcontrast images. Tee-white matter differen tiation is preserved. No extra-axial fluid collection is seen. The cerebellar tonsils are normal in c onfiguration. Ventricles, sulci, and cisterns: Prominent secondary to involutional change. Pituitary and sella: Unremarkable. Intracranial vasculature: Normal flow voids are maintained at the skull base. Orbits: The bony orbits are grossly intact. Orbital contents are normal in appearance. Sinuses and mastoids: Clear. Calvarium: Unremarkable. Cervical cord: Partially visualized cervical spinal cord is normal in morphology and signal intensity . IMPRESSION: No acute intracranial abnormality. ACT 112: Negative or not required by law. Electronically signed by: Ady Farncisco M.D. 05/10/2022 7:28 AM
[2022-05-10] MEDS: lisinopril 20 MG TAB PO SCH (08:13)
[2022-05-10] MEDS: ACETAMINOPHEN 325 MG TAB PO PRN ×2 (08:13→20:35)
[2022-05-10] MEDS: MULTIVITAMIN TAB PO SCH (08:14)
[2022-05-10] MEDS: METOPROLOL SUCC 50MG EXT REL TAB PO SCH (08:14)
[2022-05-10] MEDS: PANTOprazole 40 MG TAB PO SCH (08:15)
[2022-05-10] MEDS: amLODIPine BESYLATE 5 MG TAB PO SCH (08:15)
[2022-05-10 08:21] LABS: Estimated Average Glucose 134 mg/dl; Hemoglobin A1C 6.3 % (4.5-5.6)
--- NOTE | 2022-05-10 08:41 | Electrocardiogram Report ---
Test Reason : Blood Pressure : / mmHG Vent. Rate : 119 BPM Atrial Rate : 119 BPM P-R Int : 172 ms QRS Dur : 086 ms QT Int : 322 ms P-R-T Axes : 055 -67 072 degrees QTc Int : 452 ms Sinus tachycardia Left anterior fascicular block Minimal voltage criteria for LVH, may be normal variant Abnormal ECG When compared with ECG of 23-SEP-2021 13:19, ST no longer depressed in Inferior leads Confirmed by Prashanth Poon ([id number]) on 05/10/2022 8:40:51 AM Referred By: REFERRED SELF Confirmed By:Krishna Poon
[2022-05-10] MEDS: VANCOMYCIN HCL 1,000 MG in SODIUM CHLORIDE 0.9% 250 ML IV SCH ×2 (09:11→22:05)
[2022-05-10] MEDS ORDERED: VANCOMYCIN HCL 750 MG in SODIUM CHLORIDE 0.9% 250 ML IV SCH (10:00)
[2022-05-10] MEDS ORDERED: VANCOMYCIN HCL 1,000 MG in SODIUM CHLORIDE 0.9% 250 ML IV SCH (12:00)
--- NOTE | 2022-05-10 12:17 | Neurology Consultation ---
Date of Consultation May 10, 2022 Assessment & Plan (1) Headache: Plan 72-year-old male presenting with headache and fever beginning yesterday, elevated white blood cell count, unremarkable lumbar puncture/CSF analysis. His headache is low-grade today, he does not complain of associated neck stiffness, no nuchal rigidity on examination. Therefore, at this point in time, there is no clinical or lab evidence that he has meningoencephalitis. I suspect an underlying systemic nonspecific viral etiology. Further, there is no evidence of hemorrhage on his neuroimaging. No evidence of aneurysm or significant vascular lesion identified either. His clinical presentation is not consistent with stroke. He does not have a known history of frequent episodic migraine. He did present to the [facility] this past September with an episode of probable transient global amnesia. He has not had a recurrence of this issue. At this point, I do not find evidence of a significant underlying neurological process in this patient. Again, no evidence of stroke, GOLD MINER neoplasm, hemor rhage, or meningoencephalitis. He has an intact neurological examination. I do not have any further recommendations for additional neurological testing. However, would continue medical evaluation, assessment for occult infection or other systemic process. History of Present Illness Reason for Consultation: Headache, dizziness Requesting Physician: Dr. Diaz Attending Physician: Moody Logan MD History of Present Illness The patient is a 72-year-old male who presented to the emergency department last night with a complaint of headache and associated fever. He indicates that his headache began gradually earlier that day, becoming progressively more severe and generalized. He denied experiencing any associated nausea or light or sound sensitivity. Denied experiencing any other associated neurologic symptoms such as weakness, sensory loss, vision disturbance, change in speech, or vertigo. His blood pressure has been elevated, 179/112 at the time of presentation. He did have a fever as well, 38.3 C. He had an elevated white blood cell count, 19.42 yesterday, 24.90 today. Urinalysis was unremarkable. A chest x-ray revealed interval progression of the mild congestive change compared with the previous chest x-ray done this past September. A CT of the head was negative for hemorrhage or acute process. A CT angiogram of the head and neck revealed a therosclerotic vascular disease, no aneurysm, dissection, high-grade stenosis or arterial occlusion. There is atherosclerotic plaque of the carotid bulbs resulting in less than 50% stenosis bilaterally. A brain MRI was negative for acute abnormality. I did independently review the images. No abnormal restricted diffusion, no pathologic blooming artifact. There is mild generalized atrophy and scattered chronic microvascular ischemic disease. There is no hydrocephalus, no Chiari malformation. No abnormal postcontrast enhancement. A CT angiogram of the chest was negative for pulmonary emboli. There was cardiomegaly and. Form dilation of the ascending thoracic aorta, 4.4 cm. This morning, the patient reports low-grade headache and otherwise denies other associated symptomatology. No fever or chills. No neck stiffness. No change in speech or swallowing. No focal weakness or sensory loss. No difficulty with balance or walking at this time. I see this patient was admitted to the [facility] this past September briefly for an episode of transient memory loss. He was discharged with a diagnosis of transient global amnesia. He has not had any further recurrence of amnesia since that time. Allergies Allergy/AdvReac Type Severity Reaction Status Date / Time mold Allergy Mild Congested Verified 09/23/21 15:52 dust Allergy Mild Congested Uncoded 09/23/21 15:52 pets Allergy Mild Congested Uncoded 09/23/21 15:52 Home Medications Medication Instructions Recorded Confirmed Type amlodipine 5 mg tablet 5 mg PO QAM 09/23/21 09/23/21 History lisinopril 20 mg tablet 20 mg PO QAM 09/23/21 09/23/21 History loratadine 10 mg tablet 10 mg PO DAILY PRN Allergy Symptoms 09/23/21 09/23/21 History melatonin 10 mg tablet 10 mg PO HS 09/23/21 09/23/21 History metoprolol succinate 100 mg 100 mg PO DAILY 09/23/21 09/23/21 History tablet,extended release 24 hr multivitamin 1 tab PO QAM 09/23/21 09/23/21 History omeprazole 20 mg capsule,delayed 20 mg PO QAM 09/23/21 09/23/21 History release tamsulosin 0.4 mg capsule 0.4 mg PO HS 09/23/21 09/23/21 History Patient History Medical History BPH (benign prostatic hyperplasia) Depression Environmental allergies Essential hypertension GERD (gastroesophageal reflux disease) Prostate CA Restless leg syndrome Surgical History H/O vasectomy History of hernia surgery History of total left knee replacement Hx of tonsillectomy Family History Father , age 62 Heart disease Mother , ~70 y/o Heart disease Stroke Social History Smoking Status: Never smoker Second Hand Exposure: No; Hx Alcohol Use: Yes Alcohol type: beer Hx Substance Use: No Preferred Language: [place] Communication Ability: Effective Life Scientist Required: No Beliefs That Will Affect Care: None Current Living Situation: Spouse Current Living Situation Comment: lives with fiance Other Information That Helps Us Care for You: No Feels Safe at Home: Yes Safety Concerns: Feels Safe At This Time Assistive Devices: Cane, Denture - Upper and Glasses Review of Systems Constitutional: as per Subjective / HPI and + fever Eyes: no blind spots and no diplopia Ear, Nose, Mouth, Throat: no tinnitus and no hearing loss Respiratory: no cough and no dyspnea Cardiovascular: no chest pain and no palpitations Gastrointestinal: no nausea and no vomiting Genitourinary: no dysuria Musculoskeletal: no back pain, no neck pain and no myalgia Integumentary: no rash and no lesions Neurologic: as per Subjective / HPI Psychiatric: no depression and no anxiety Hematologic / Lymphatic: no easy bleeding and no easy bruising Exam (Neuro) Constitutional: well developed and well nourished; no acute distress Eyes: normal visual mitchell by confrontation, PERRL, normal accommodation and EOM intact bilaterally; no fundoscopic abnormality, no nystagmus and no papilledema Cardiovascular: Vessels: normal carotid upstroke; no carotid bruit Neurologic: Oriented to:: Person, Place and Time Memory: Short Term Intact and Remote Intact Attention: Span Intact and Concentration Intact Language: Naming Objects and Repeating Phrases Speech Fluency: negative Dysarthria Speech Aphasia: negative Aphasia Fund of Knowledge: Current Events, Past History and Vocabulary Cranial Nerves: Normal II (Visual mitchell full to confrontation, visual acuity normal), III, IV, (Pupils equal round reactive to light and accommodation, eye movements normal), V (Facial sensation intact), VII (There is no facial droop or weakness), VIII (Hearing intact), IX, X (Palate elevates to midline), XI (Shoulder shrug intact) and XII (Tongue protrudes to midline) Motor Strength: Normal Lower Extremities and Normal Upper Extremities; negative Pronator Drift Motor Tone: Normal Lower Extremities and Normal Upper Extremities Muscle Bulk/Involuntary Movements: No Involuntary Movements; negative Muscle Atrophy Sensation: Light Touch Intact, Pain/Temperature Intact, Vibration Intact and Proprioception Intact Coordination: Normal; negative Limited Balance, Dysdiadochokinesia, Finger-Nose Abnormal or Heel-Krause Abnormal Deep Tendon Reflexes: Rt Triceps: 2+, Lt Triceps: 2+, Rt Biceps: 2+, Lt Biceps: 2+, Rt Brachioradialis: 2+, Lt Brachioradialis: 2+, Rt Patellar: 2+, Lt Patellar: 2+, Rt Ankle: 2+ and Lt Ankle: 2+ Special Tests: negative Babinski Present Gait: Normal Station and Gait Results & Data ([facility]) Vital Signs (Past 12 Hours) Vital Signs Temp Pulse Resp BP BP Pulse Ox O2 Del Method 05/10/22 11:46 36.8 C 80 18 157/93 H 94 Room Air 05/10/22 07:30 37.2 C 107 H 22 162/101 H 95 Room Air 05/10/22 03:42 37.5 C 88 18 154/97 H 94 Room Air 05/10/22 00:21 36.6 C 95 H 20 129/85 96 Nasal Cannula 05/10/22 00:00 18 151/91 H 96 O2 Flow Rate 05/10/22 11:46 05/10/22 07:30 05/10/22 03:42 05/10/22 00:21 2 05/10/22 00:00 Laboratory Results WBC 24.90, hemoglobin 13.9, hematocrit 40.3, MCV 86.9, platelet count 233, sodium 135, potassium 3.8, BUN 17, creatinine 1.12, glucose 136, hemoglobin A1c 6.3, calcium 8.6, magnesium 1.7, AST 15, ALT 16, triglycerides 51, cholesterol 115, LDL 62, VLDL 10, HDL 43, urinalysis negative. Urine toxicology screen negative. Lyme antibody screening negative, SARS-CoV-2 testing negative, influenza testing and RSV testing negative. Lumbar puncture completed, CSF clear, colorless, no xanthochromia, CSF WBC 1, RBC 12, glucose 75, CSF protein 36.9, CSF bio fire meningoencephalitis panel negative. Diagnostic Findings CT of the head, CT angiography of the head and neck, and brain MRI are as described in the history of present illness. I independently reviewed the images as well as the radiologist interpretation of this test. Coding Level of Care Code 08642 Initial In Care Lvl 3 Diagnoses Headache R51.9 Headache chronicity pattern: acute headache Headache type: unspecified Intractability: not intractable (1) Headache Headache chronicity pattern: acute headache Headache type: unspecified Intractability: not intractable Qualified Code(s): R51.9 - Headache, unspecified
--- NOTE | 2022-05-10 13:05 | Pharmacy Report ---
Pharmacy PK ABX Note - Date of Service May 10, 2022 - Assessment and Plan Assessment 72 year old M receiving vancomycin and cefepime empirically for leukocytosis and fever (unknown origin). Presented with headache and dizziness, found to have leukocytosis and fever at that time. Pertinent microbiologic data includes: CSF (05/09/22) no WBCs/organisms seen. Neurology consulted, possible underlying systemic viral etiology. Day # 1 of antimicrobial therapy. Plan Vancomycin * Loading dose: 2000 mg IV x 1 * Maintenance dose: 1000 mg IV every 12 hours * Regimen is predicted to achieve target AUC/MICA of 400-600 mg/L.hr * Will obtain level if continued beyond 48 hours, or patient has change in renal function Cefepime * 2 g IV q8h - appropriate Pharmacy will continue to follow and will adjust dose/frequency as necessary. Thank you. Pharmacy has transitioned to AUC monitoring for vancomycin. AUC/MICA is the preferred PK/PD target and is associated with decreased risk of nephrotoxicity compared to traditional trough targets.
[2022-05-10] MEDS ORDERED: SODIUM CHLORIDE 0.65% NA SOLN 45 ML (OCEAN) STA (15:43)
--- NOTE | 2022-05-10 15:50 | Hospitalist Progress Note ---
Date of Service May 10, 2022 Assessment & Plan (1) Fever: (2) GERD (gastroesophageal reflux disease): (3) BPH (benign prostatic hyperplasia): (4) Essential hypertension: Plan Patient is a 72-year-old male with past medical history of prostate cancer status postradiation, hypertension, BPH, GERD presented to the ED with fever, headache and questionable strokelike symptoms. Lumbar puncture was done in the emergency department. CSF is unremarkable for any signs of infection. CT head, CTA head and neck are unremarkable. Fever - Unknown source Febrile to 38.2 C since admission, normotensive and saturating well on room air. WBC elevated to 24 -CT head, CTA head and neck unremarkable so far. MRI brainno acute abnormality. CTA chest unremarkable for pneumonia. Descending thoracic aorta 4.4 cm. CSF study unremarkable so far. Gram stain negative. Cultures no growth till date. U tox negative Lyme serology negative COVID 19 PCR negative Echo no wall motion abnormalities. EF within normal limits. Plan; -Patient had episode of fever and has leukocytosis. So far, his infectious work-up was negative. He is presently on cefepime and vancomycin as empiric antibiotic. Will obtain blood culture. Continue on current antibiotic and follow fever curve and leukocytosis. We will follow-up on pending studies as well. Neurology evaluated patient for headache; no additional testing required. -Will need follow-up for thoracic aortic aneurysm Chronic issues: BPH- tamsulosin GERD- on omeprazole Hx of prostate ca s/p radiation Full code DVT Lovenox Admission and Anticipated Discharge Date Admission Date: May 09, 2022 Subjective Patient seen and examined at bedside. Is comfortably sitting up on the chair; not in any distress. He says his headache is better compared to presentation but continues to complain of neck stiffness. He denies any other numbness/tingling sensation, fever, chills, abdominal pain chest pain or shortness of breath. Tmax of 38.3 Review of Systems Review of Systems: All systems reviewed & are unremarkable except as noted in Subjective Physical Exam Physical Exam: GENERAL: The patient is alert and oriented, not in acute distress. HEENT: Pupils equal, round and reactive to light. Oral mucosa moist. NECK: No JVD, no neck masses. CARDIOVASCULAR: S1 and S2 heard. Regular rate and rhythm. No murmur, no gallop. RESPIRATORY SYSTEM: Normal AP diameter. No accessory muscle use. No wheezing, no crackles. ABDOMEN: Soft, bowel sounds present, nontender, no distention. CENTRAL NERVOUS SYSTEM: Alert and oriented x3. Speech is clear. No facial droop. Power 5/5 in all extremities. Sensation is intact. No pronator drift. Coordination of movements normal. Cbklqw-ci-adge test normal. Position sense intact. EXTREMITIES: No edema, no erythema. Results & Data Results & Data ([facility]) Vital Signs (Past 12 Hours) Vital Signs Temp Pulse Resp BP Pulse Ox O2 Del Method 05/10/22 11:46 36.8 C 80 18 157/93 H 94 Room Air 05/10/22 07:30 37.2 C 107 H 22 162/101 H 95 Room Air 05/10/22 03:42 37.5 C 88 18 154/97 H 94 Room Air Laboratory Results Laboratory Results WBC 24.90 K/ul (4.8-10.8) H 05/10/22 05:06 RBC 4.64 M/uL (4.63-6.08) 05/10/22 05:06 Hgb 13.9 g/dl (14.0-18.0) L 05/10/22 05:06 POC Hgb 16.7 g/dl (14.0-18.0) 05/09/22 17:53 Hct 40.3 % (40.1-51.0) 05/10/22 05:06 POC Hct 49 % (42-52) 05/09/22 17:53 MCV 86.9 fL (80.0-100.0) 05/10/22 05:06 MCH 30.0 pg (25.0-34.0) 05/10/22 05:06 MCHC 34.5 g/dL (32.0-36.0) 05/10/22 05:06 RDW Std Deviation 46.5 fL (36.4-46.3) H 05/10/22 05:06 RDW Coeff of Carine 14.6 % (11.5-14.5) H 05/10/22 05:06 Plt Count 233 K/uL (130-400) 05/10/22 05:06 MPV 11.2 fL (9.4-12.4) 05/10/22 05:06 Immature Gran % (Auto) 0.4 % 05/10/22 05:06 Neut % (Auto) 85.8 % 05/10/22 05:06 Lymph % (Auto) 5.0 % 05/10/22 05:06 [place] % (Auto) 8.4 % 05/10/22 05:06 Eos % (Auto) 0.2 % 05/10/22 05:06 Baso % (Auto) 0.2 % 05/10/22 05:06 Neut # (Auto) 21.36 K/uL (1.4-6.5) H 05/10/22 05:06 Lymph # (Auto) 1.24 K/uL (1.2-3.4) 05/10/22 05:06 [place] # (Auto) 2.09 K/uL (0.24-0.82) H 05/10/22 05:06 Eos # (Auto) 0.04 K/uL (0-0.50) 05/10/22 05:06 Baso # (Auto) 0.06 K/uL (0-0.2) 05/10/22 05:06 Immature Gran # (Auto) 0.11 K/uL (0.00-0.02) H 05/10/22 05:06 RBC Morphology Unremarkable 05/10/22 05:06 PT 11.4 Seconds (9.0-12.0) 05/09/22 17:35 INR 1.1 (0.9-1.1) 05/09/22 17:35 APTT 24.1 Seconds (21.0-31.0) 05/09/22 17:35 PTT Ratio 0.9 05/09/22 17:35 ABG pH 7.47 (7.35-7.45) H 05/09/22 18:06 ABG pCO2 34 mmHg (35-46) L 05/09/22 18:06 ABG pO2 78 mmHg (80-95) L 05/09/22 18:06 ABG HCO3 25 mmol/L (19-24) H 05/09/22 18:06 ABG O2 Saturation 96.9 % (90-95) H 05/09/22 18:06 ABG Base Excess 1.5 mEq/L (-9-1.8) 05/09/22 18:06 [place] Test POS (Pos) 05/09/22 18:06 Oxygen Given ROOM AIR 05/09/22 18:06 POC Sodium 137 mmol/L (135-144) 05/09/22 17:53 Sodium 135 mmol/L (136-145) L 05/10/22 05:06 POC Potassium 4.1 mmol/L (3.3-5.0) 05/09/22 17:53 Potassium 3.8 mmol/L (3.5-5.1) 05/10/22 05:06 POC Chloride 99 mmol/L (101-112) L 05/09/22 17:53 Chloride 106 mmol/L (98-107) 05/10/22 05:06 Carbon Dioxide 24 mmol/L (21-32) 05/10/22 05:06 POC Total CO2 24 mmol/L (24-31) 05/09/22 17:53 Anion Gap 5 (3-11) 05/10/22 05:06 POC Anion Gap 19.0 mmol/L (16-25) 05/09/22 17:53 POC BUN 17 mg/dl (7-18) 05/09/22 17:53 BUN 17 mg/dl (6-23) 05/10/22 05:06 Creatinine 1.12 mg/dl (0.6-1.4) 05/10/22 05:06 POC Creatinine 1.2 mg/dl (0.6-1.3) 05/09/22 17:53 Est Cr Clr Drug Dosing 70.7 ml/min 05/10/22 05:06 Est GFR ( Amer) 74.6 ml/min 05/10/22 05:06 Est GFR (Non-Af Amer) 64.4 ml/min 05/10/22 05:06 BUN/Creatinine Ratio 15.2 (10-20) 05/10/22 05:06 Glucose 136 mg/dl (70-99(Fasting)) H 05/10/22 05:06 POC Glucose 128 mg/dl (70-99) H 05/09/22 17:41 POC Glucose (other) 135 mg/dl (70-99) H 05/09/22 17:53 Estimat Average Glucose 134 mg/dl 05/10/22 05:06 Hemoglobin A1c 6.3 % (4.5-5.6) H 05/10/22 05:06 Lactate 1.0 mmol/L (0.4-2.0) 05/09/22 18:06 Calcium 8.6 mg/dl (8.5-10.1) 05/10/22 05:06 POC Ioniz Calcium [place] 1.19 mmol/l (1.12-1.32) 05/09/22 17:53 Magnesium 1.7 mg/dl (1.7-2.4) 05/10/22 05:06 Total Bilirubin 1.2 mg/dl (0.2-1.0) H 05/09/22 17:35 AST 15 U/L (13-39) 05/09/22 17:35 ALT 16 U/L (7-52) 05/09/22 17:35 Alkaline Phosphatase 55 U/L (34-104) 05/09/22 17:35 Troponin I High Sens 19.9 pg/ml (0-20) 05/09/22 17:35 Total Protein 6.8 gm/dl (6.0-8.3) 05/09/22 17:35 Albumin 4.1 gm/dl (3.4-5.0) 05/09/22 17:35 Globulin 2.7 gm/dl (2.5-4.0) 05/09/22 17:35 Albumin/Globulin Ratio 1.5 (0.9-2) 05/09/22 17:35 Triglycerides 51 mg/dl (0-150) 05/10/22 05:06 Cholesterol 115 mg/dl (0-200) 05/10/22 05:06 LDL Cholesterol, Calc 62 mg/dl 05/10/22 05:06 VLDL Cholesterol, Calc 10 mg/dl (0-30) 05/10/22 05:06 HDL Cholesterol 43 mg/dl 05/10/22 05:06 Cholesterol/HDL Ratio 2.7 (0-5) 05/10/22 05:06 Procalcitonin < 0.05 ng/ml (0-0.5) 05/09/22 17:35 Urine Color Yellow 05/09/22 18:20 Urine Appearance Clear (Clear) 05/09/22 18:20 Urine pH 6.0 (4.5-7.5) 05/09/22 18:20 Ur Specific [place] 1.021 (1.000-1.030) 05/09/22 18:20 Urine Protein Negative (Negative) 05/09/22 18:20 Urine Glucose (UA) Negative (Negative) 05/09/22 18:20 Urine Ketones Negative (Negative) 05/09/22 18:20 Urine Blood Negative (Negative) 05/09/22 18:20 Urine Nitrite Negative (Negative) 05/09/22 18:20 Urine Bilirubin Negative (Negative) 05/09/22 18:20 Urine Urobilinogen Negative (Negative) 05/09/22 18:20 Ur Leukocyte Esterase Negative (Negative) 05/09/22 18:20 Fluid Comment 05/09/22 20:41 CSF Appearance Clear 05/09/22 20:41 CSF Color Colorless 05/09/22 20:41 Xanthrochromic No xanthochromia 05/09/22 20:41 CSF WBC 1 /uL (0-5) 05/09/22 20:41 CSF RBC 12 /uL (0-) 05/09/22 20:41 CSF Cell Count Tube # 3 05/09/22 20:41 CSF Chemistry Tube # 1 05/09/22 20:41 CSF Glucose 75 mg/dl (40-70) H 05/09/22 20:41 CSF Total Protein 36.9 mg/dl (15-45) 05/09/22 20:41 CSF C.neoform/gat PCR Not Detected (NotDetected) 05/09/22 20:41 CSF CMV DNA (PCR) Not Detected (NotDetected) 05/09/22 20:41 CSF Enterovirus (PCR) Not Detected (NotDetected) 05/09/22 20:41 CSF E. coli K1 (PCR) Not Detected (NotDetected) 05/09/22 20:41 CSF H. influenzae (PCR) Not Detected (NotDetected) 05/09/22 20:41 CSF HSV I (PCR) Not Detected (NotDetected) 05/09/22 20:41 CSF HSV II (PCR) Not Detected (NotDetected) 05/09/22 20:41 CSF HHV 6 (PCR) Not Detected (NotDetected) 05/09/22 20:41 CSF L.monocytogenes PCR Not Detected (NotDetected) 05/09/22 20:41 CSF N. meningitidis PCR Not Detected (NotDetected) 05/09/22 20:41 CSF Parechovirus (PCR) Not Detected (NotDetected) 05/09/22 20:41 CSF S. agalactiae (PCR) Not Detected (NotDetected) 05/09/22 20:41 CSF S. pneumoniae (PCR) Not Detected (NotDetected) 05/09/22 20:41 CSF VZV DNA (PCR) Not Detected (NotDetected) 05/09/22 20:41 Urine Opiates Screen Neg (Neg) 05/09/22 18:20 Ur Methadone, Qual Neg (Neg) 05/09/22 18:20 Urine Barbiturates Neg (Neg) 05/09/22 18:20 Ur Phencyclidine (PCP) Neg (Neg) 05/09/22 18:20 U Amphetamin/Meth Scrn Neg (Neg) 05/09/22 18:20 MDMA (Ecstasy) Screen Neg (Neg) 05/09/22 18:20 U Benzodiazepines Scrn Neg (Neg) 05/09/22 18:20 Ur Cocaine Metabolite Neg (Neg) 05/09/22 18:20 U Marijuana (THC) Screen Neg (Neg) 05/09/22 18:20 Lyme Disease IgG Ab Negative (Negative) 05/09/22 17:35 Lyme Disease IgM Ab Negative (Negative) 05/09/22 17:35 SARS-CoV-2 (PCR) NEGATIVE (Negative) 05/09/22 17:59 Influenza Type A (PCR) Negative (Neg) 05/09/22 17:59 Influenza Type B (PCR) Negative (Neg) 05/09/22 17:59 RSV (RT-PCR) Negative (Neg) 05/09/22 17:59 Blood Type A Negative 05/09/22 18:08 Antibody Screen NEGATIVE 05/09/22 18:08 Impressions Chest X-Ray 05/09/22 17:44 XR chest 1V portable HISTORY: Stroke Like Symptoms COMPARISON: Chest 09/23/2021. FINDINGS: No pneumothorax. The largest. There is progressive interstitial/vascular thickening consistent with mild congestive change. There is an old, healed left clavicle fracture. A few left basilar linear densities persist and favor subsegmental atelectasis or scarring. IMPRESSION: Interval progression of the mild congestive change. ACT 112: Negative or not required by law. Electronically signed by: Gui North M.D. 05/09/2022 6:[address] 05/09/22 17:44 CT head/brain wo con CLINICAL HISTORY: 72 years-old Male with Stroke Like Symptoms. Acute strokelike symptoms TECHNIQUE: Multiple axial CT images of the head were obtained without contrast. A dose lowering technique was utilized adhering to the principles of ALARA. COMPARISON: CTA head and neck of same day, brain MRI 09/23/2021 FINDINGS: No acute intracranial hemorrhage, midline shift, intracranial mass, hydrocephalus, territorial ischemia or abnormal extra-axial collection. Involutional changes with mild ex vacuo ventriculomegaly. White matter hypodensities suggestive of chronic microvascular ischemic disease. Cerebral vascular calcifications. The calvarium is intact. The paranasal sinuses, mastoid air cells, and middle ear cavities are clear. IMPRESSION: No acute intracranial abnormality. ACT 112: Negative or not required by law. The above report was generated using voice recognition software. It may contain grammatical, syntax or spelling errors. Electronically signed by: Jovanny Nolan M.D. 05/09/2022 7:15 PM Head CTA 05/09/22 17:44 CT angio neck with con, CT angio head w con CLINICAL HISTORY: 72 years-old Male with Stroke Like Symptoms. Acute stroke like symptoms COMPARISON STUDY: Head CT of same day, CTA head and neck 09/23/2021 TECHNIQUE: Following the IV administration of 112 now of Optiray, CT angiogram of the head and neck was performed from the aortic arch to the skull apex. Images are reviewed in the axial, sagittal, and coronal planes. 3-D MIPS images are created and assessed. IV contrast was administered without complication. All measurements were calculated based on NASCET criteria. A dose lowering technique was utilized adhering to the principles of ALARA. FINDINGS: Atherosclerosis of the thoracic aorta. Patency of the innominate and imaged subclavian arteries. Mild atherosclerosis of the common carotid arteries. Atherosclerotic plaque of the left greater than right carotid bulbs results in less than 50% stenosis bilaterally. Study is mildly motion degraded. The internal carotid, middle and anterior cerebral arteries are patent bilaterally. Patent and codominant vertebral arteries. There is atherosclerotic plaque at the origin of the left vertebral artery which results in mild stenosis, suboptimally visualized secondary to motion artifact. The basilar and posterior cerebral arteries are patent. There is origin of the right posterior cerebral artery. The cerebral venous sinuses are patent. There is no abnormal intracranial enhancement. The lung apices are clear. No pneumothorax. Unremarkable thyroid. Degenerative changes of the cervical spine. IMPRESSION: 1. Atherosclerotic vascular disease. No aneurysm, dissection, high-grade stenosis or arterial occlusion. 2. Atherosclerotic plaque of the carotid bulbs results in less than 50% stenosis bilaterally. ACT 112: Negative or not required by law. The above report was generated using voice recognition software. It may contain grammatical, syntax or spelling errors. Electronically signed by: Jovanny Nolan M.D. 05/09/2022 7:27 PM Neck CTA 05/09/22 17:44 CT angio neck with con, CT angio head w con CLINICAL HISTORY: 72 years-old Male with Stroke Like Symptoms. Acute stroke like symptoms COMPARISON STUDY: Head CT of same day, CTA head and neck 09/23/2021 TECHNIQUE: Following the IV administration of 112 now of Optiray, CT angiogram of the head and neck was performed from the aortic arch to the skull apex. Images are reviewed in the axial, sagittal, and coronal planes. 3-D MIPS images are created and assessed. IV contrast was administered without complication. All measurements were calculated based on NASCET criteria. A dose lowering technique was utilized adhering to the principles of ALARA. FINDINGS: Atherosclerosis of the thoracic aorta. Patency of the innominate and imaged subclavian arteries. Mild atherosclerosis of the common carotid arteries. Atherosclerotic plaque of the left greater than right carotid bulbs results in less than 50% stenosis bilaterally. Study is mildly motion degraded. The internal carotid, middle and anterior cerebral arteries are patent bilaterally. Patent and codominant vertebral arteries. There is atherosclerotic plaque at the origin of the left vertebral artery which results in mild stenosis, suboptimally visualized secondary to motion artifact. The basilar and posterior cerebral arteries are patent. There is origin of the right posterior cerebral artery. The cerebral venous sinuses are patent. There is no abnormal i ntracranial enhancement. The lung apices are clear. No pneumothorax. Unremarkable thyroid. Degenerative changes of the cervical spine. IMPRESSION: 1. Atherosclerotic vascular disease. No aneurysm, dissection, high-grade stenosis or arterial occlusion. 2. Atherosclerotic plaque of the carotid bulbs results in less than 50% stenosis bilaterally. ACT 112: Negative or not required by law. The above report was generated using voice recognition software. It may contain grammatical, syntax or spelling errors. Electronically signed by: Jovanny Nolan M.D. 05/09/2022 7:27 PM Chest CTA 05/09/22 17:48 CT angio chest PE protocol CT DOSE: 2047.86 mGy.cm HISTORY: 72 years-old Male with ro PE. Acute strokelike symptoms with chest pain TECHNIQUE: Multiple CTA images of the chest were obtained after the intravenous administration of 112 ml Optiray. Coronal and sagittal MIPS were obtained from the axial data set and were submitted for review. All measurements were obtained according to NASCET criteria. A dose lowering technique was utilized adhering to the principles of ALARA. COMPARISON: CTA head neck of same day FINDINGS: CTA: Moderate cardiomegaly. No pericardial effusion. Moderate coronary artery calcifications. Fusiform dilation of the ascending thoracic aorta, 4.4 cm. Patency of the imaged great vessels. Respiratory motion artifact limited evaluation of the pulmonary arterial tree. No central pulmonary emboli identified. The study is also limited secondary to contrast bolus timing. CT CHEST: Unremarkable thyroid. No lymphadenopathy. No pneumothorax, pleural effusion or overt pulmonary edema. Bilateral subsegmental groundglass densities suggest atelectasis. There are no suspicious pulmonary nodules or masses identified. The central airways are patent. No acute process of the imaged upper abdomen. There are a few scattered cysts within the left lobe of the liver measuring up to 2.2 cm. Unremarkable soft tissues. No acute fracture healed chronic anterior fractures. IMPRESSION: 1. Motion degraded exam. No central pulmonary emboli identified. 2. Cardiomegaly with fusiform dilation of the ascending thoracic aorta, 4.4 cm. ACT 112: Negative or not required by law. The above report was generated using voice recognition software. It may contain grammatical, syntax or spelling errors. Electronically signed by: Jovanny Nolan M.D. 05/09/2022 7:32 PM Brain MRI 05/10/22 00:19 MRI OF THE BRAIN COMBO CLINICAL HISTORY: Gait imbalance. Headache. COMPARISON STUDY: CT of the brain dated 05/09/2022. TECHNIQUE: MRI of the brain was performed utilizing various T1 and T2-weighted sequences in the axial, sagittal, and coronal planes. Contrast-enhanced sequences were acquired following the administration of 10 cc of Gadavist. FINDINGS: Brain parenchyma: There is age-related involutional change noting mild subcortical and periventricular microangiopathic disease. There is no hemorrhage or mass effect. There is no restricted diffusion to suggest acute ischemia. A developmental venous anomaly is incidentally noted in the right parietal cortex. No enhancing mass lesion is identified on the postcontrast images. Tee-white matter differentiation is preserved. No extra-axial fluid collection is seen. The cerebellar tonsils are normal in configuration. Ventricles, sulci, and cisterns: Prominent secondary to involutional change. Pituitary and sella: Unremarkable. Intracranial vasculature: Normal flow voids are maintained at the skull base. Orbits: The bony orbits are grossly intact. Orbital contents are normal in appearance. Sinuses and mastoids: Clear. Calvarium: Unremarkable. Cervical cord: Partially visualized cervical spinal cord is normal in morphology and signal intensity. IMPRESSION: No acute intracranial abnormality. ACT 112: Negative or not required by law. Electronically signed by: Ady Francisco M.D. 05/10/2022 7:28 AM (1) GERD (gastroesophageal reflux disease) Esophagitis presence: esophagitis presence not specified Qualified Code(s): K21.9 - Gastro-esophageal reflux disease without esophagitis
[2022-05-10] MEDS: TAMSULOSIN HCL 0.4 MG CAP PO SCH (20:36)
[2022-05-10] MEDS: MELATONIN 3 MG TAB PO SCH (20:36)
[2022-05-11] MEDS: CEFEPIME 2,000 MG in SYRINGE 0 ML IV SCH ×3 (00:56→17:52)
[2022-05-11 06:10] LABS: Basophils # (auto) 0.05 K/uL (0-0.2); Basophils % (auto) 0.3 %; Eosinophils # (auto) 0.64 K/uL (0-0.50); Eosinophils % (auto) 4.1 %; Hematocrit (blood only) 35.9 % (40.1-51.0); Hemoglobin 12.1 g/dl (14.0-18.0); Immature Granulocytes # (auto) 0.08 K/uL (0.00-0.02); Immature Granulocytes % (auto) 0.5 %; Lymphocytes % (auto) 8.3 %; Mean Corpuscular Hgb Conc 33.7 g/dL (32.0-36.0); Mean Corpuscular Volume 89.1 fL (80.0-100.0); Mean Platelet Volume 11.4 fL (9.4-12.4); Monocytes # (auto) 1.33 K/uL (0.24-0.82); Monocytes % (auto) 8.5 %; Neutrophils # (auto) 12.24 K/uL (1.4-6.5); Neutrophils % (auto) 78.3 %; Platelet Count 204 K/uL (130-400); RDW Coefficient of Variation 14.6 % (11.5-14.5); RDW Standard Deviation 48.5 fL (36.4-46.3); Red Blood Count 4.03 M/uL (4.63-6.08); White Blood Count 15.64 K/ul (4.8-10.8)
[2022-05-11] MEDS: ENOXAPARIN INJ 40 MG/0.4 ML SYR SQ SCH (06:17)
[2022-05-11 06:39] LABS: BUN Creatinine Ratio 15.2 (10-20); Calcium 8.4 mg/dl (8.5-10.1); Creatinine Clr Calc Pharmacy 63.7 ml/min; Est GFR (African American) 65.3 ml/min; Est GFR (Non-African American) 56.4 ml/min; Potassium 3.8 mmol/L (3.5-5.1)
[2022-05-11] MEDS: ACETAMINOPHEN 325 MG TAB PO PRN ×3 (07:43→22:09)
[2022-05-11] MEDS: VANCOMYCIN HCL 1,000 MG in SODIUM CHLORIDE 0.9% 250 ML IV SCH ×2 (10:37→22:04)
[2022-05-11] MEDS: PANTOprazole 40 MG TAB PO SCH (10:38)
[2022-05-11] MEDS: METOPROLOL SUCC 50MG EXT REL TAB PO SCH (10:38)
[2022-05-11] MEDS: amLODIPine BESYLATE 5 MG TAB PO SCH (10:38)
[2022-05-11] MEDS: MULTIVITAMIN TAB PO SCH (10:38)
[2022-05-11] MEDS: lisinopril 20 MG TAB PO SCH (10:38)
--- NOTE | 2022-05-11 10:49 | Pharmacy Report ---
Pharmacy PK ABX Note - Date of Service May 11, 2022 - Assessment and Plan Assessment 05/11: Day 2 IV Vancomycin + Cefepime Neurology evaluated patient for headache; no additional testing required. -Will need follow-up for thoracic aortic aneurysm. -Blood cultures pending. 05/10: 72 year old M receiving vancomycin and cefepime empirically for leukocytosis and fever (unknown origin). Presented with headache and dizziness, found to have leukocytosis and fever at that time. Pertinent microbiologic data includes: CSF (05/09/22) no WBCs/organisms seen. Neurology consulted, possible underlying systemic viral etiology. Day # 1 of antimicrobial therapy. Plan Vancomycin * Current regimen: 1000 mg IV every 12 hours * Trough level obtained 05/11/22 resulted as 11.8 mcg/mL. This is predicted to achieve target AUC/MICA of 400-600 mg/L.hr * Predicted AUC at steady state: 554 mg/L.hr * Continue 1000 mg IV every 12 hours * Will obtain another level if continued beyond 48 hours, or patient has change in renal function Cefepime * 2 g IV q8h - appropriate Pharmacy will continue to follow and will adjust dose/frequency as necessary. Thank you. Pharmacy has transitioned to AUC monitoring for vancomycin. AUC/MICA is the preferred PK/PD target and is associated with decreased risk of nephrotoxicity compared to traditional trough targets.
[2022-05-11] MEDS ORDERED: IOVERSOL 350 MG 100mL Prefilled Syringe IV ONE (13:11)
--- NOTE | 2022-05-11 13:33 | CT Scan Report ---
ABDOMEN AND PELVIS CT WITH IV CONTRAST CT DOSE: 1221.91 mGycm HISTORY: Penile and scrotal swelling. r/o infected penile prosthesis TECHNIQUE: Multiaxial CT images of the abdomen and pelvis were performed following the use of intrave nous contrast. A dose lowering technique was utilized adhering to the principles of ALARA. COMPARISON STUDY: None. FINDINGS: There is a trace right pleural effusion. Mild dependent changes seen at the lung bases. No pneumoperitoneum. No pneumatosis. Bilateral L5 spondylolysis with associated grade 1 anterolisthesis. Mild scoliosis and degenerative disc disease noted within the lumbar spine. The heart is mildly enla rged. There are are a few hypodense lesions within the liver with the largest in the left hepatic lob e measuring 2.3 cm. These favor cysts. The main portal vein is patent. The gallbladder, spleen, adren al glands, pancreas, and kidneys are unremarkable. No hydronephrosis. Moderate calcified plaque withi n the abdominal aorta. There is a mildly ectatic mid abdominal aorta measures up to 2.7 cm in diamete r. No retroperitoneal or pelvic lymphadenopathy. Mild bladder wall thickening which may be due to chr onic outlet obstruction. The prostate gland is mildly enlarged. There are few punctate metallic densi ties within the prostate gland. No pelvic free fluid. Colonic diverticulosis. No evidence for acute d iverticulitis. No bowel wall thickening or obstruction. Normal appendix. The penile prosthesis is pre sent. There is skin thickening and subcutaneous edema within the penis and scrotum. There is a linear subcutaneous peripheral enhancing fluid collection within the anterior mid scrotum which measures ap proximately 10.0 x 1.9 x 1.8 cm. This extends from the anterior scrotum near the skin surface to the base of the penis. This also partially surrounds the prosthesis within the scrotum as well as the pro sthetic tubes extending to the cavernosal prostheses. No gas within this fluid collection. However, t his is concerning for an abscess. This is best seen on images [id number] through [id number]. IMPRESSION: There is skin thickening and subcutaneous edema within the penis and scrotum. There is a linear subcu taneous peripheral enhancing fluid collection within the anterior mid scrotum which measures approxim ately 10.0 x 1.9 x 1.8 cm. This extends from the anterior scrotum near the skin surface to the base o f the penis. This also partially surrounds the prosthesis within the scrotum as well as the prostheti c tubes extending to the cavernosal prostheses. No gas within this fluid collection. However, this is concerning for an abscess. ACT 112: Negative or not required by law. Electronically signed by: Gui North M.D. 05/11/2022 1:32 PM
--- NOTE | 2022-05-11 15:06 | Urology Consultation ---
Date of Consultation May 11, 2022 Assessment & Plan (1) History of penile implant: (2) Fever: Plan 72-year-old male admitted with headache and fever. Initial work-up was negative but patient mention today that he had some scrotal swelling and recently had an IPP placed at [facility] in March. I had a long discussion with the patient and his . Concern is that his implant may be infected. CT scan does show a fluid collection. Physical exam did express a small amount of serous drainage but no obvious purulence. Patient has been hemodynamically stable and olga actually improved from a vital perspective and from a leukocytosis perspective with antibiotics alone. -As he recently had his implant placed and I did not want to emergently remove without first discussing with his surgeon, I did speak with Dr. Khanna of [facility] over the phone. He did explain that occasionally there can be some postoperative edema and fluid collections from these implants that can be managed with antibiotics and can be salvaged. Given his improvement clinically and the fact that he ate at noon and would not be n.p.o. until later tonight anyway, I will elect to reexamine him tomorrow and check his labs. If stable, likely will discharge pain with antibiotics and have Dr. Khanna see him next week for further evaluation. If any concerns for worsening physical exam or leukocytosis, likely will move forward with explant tomorrow. -Please make patient n.p.o. at midnight. Please continue antibiotics. Plan was discussed with patient and he agrees. History of Present Illness Reason for Consultation: Fever, recent placement of penile prosthesis Attending Physician: Gilberto Jensen MD History of Present Illness 72-year-old male who was admitted to the hospital on 05/09/2022 with headache dizziness and a fever. He had a one-time fever of 38.3 on 05/09/2022 but otherwise has been afebrile. Otherwise hemodynamically stable. Initial labs showed a leukocytosis of 19.4. This xiomara to 24.9 on 05/10/2022 but then down trended to 15.64 today. Creatinine has been stable at roughly 1.2. Urinalysis was negative. Patient underwent head neck and chest CTA on 05/09/2022 and all of these were negative. He also underwent a brain MRI which was negative. The patient mentioned this morning that he had recently had a penile implant placed in March at [facility] and had noted some scrotal swelling this morning. Urology was consulted this morning. CT scan of the abdomen and pelvis was performed and independently reviewed. Impression: There is skin thickening and subcutaneous edema within the penis and scrotum. There is a linear subcutaneous peripheral enhancing fluid collection within the anterior mid scrotum which measures approximately 10.0 x 1.9 x 1.8 cm. This extends from the anterior scrotum near the skin surface to the base of the penis. This also partially surrounds the prosthesis within the scrotum as well as the prosthetic tubes extending to the cavernosal prostheses. No gas within this fluid collection. However, this is concerning for an abscess. Patient denies any acute pain in the penoscrotal region but does report some increased swelling. He does report that he has had trouble managing his IPP since it was placed. He also reports increased urinary urgency. He has been on vancomycin and cefepime. Allergies Allergy/AdvReac Type Severity Reaction Status Date / Time mold Allergy Mild Congested Verified 09/23/21 15:52 dust Allergy Mild Congested Uncoded 09/23/21 15:52 pets Allergy Mild Congested Uncoded 09/23/21 15:52 Home Medications Medication Instructions Recorded Confirmed Type amlodipine 5 mg tablet 5 mg PO QAM 09/23/21 09/23/21 History lisinopril 20 mg tablet 20 mg PO QAM 09/23/21 09/23/21 History loratadine 10 mg tablet 10 mg PO DAILY PRN Allergy Symptoms 09/23/21 09/23/21 History melatonin 10 mg tablet 10 mg PO HS 09/23/21 09/23/21 History metoprolol succinate 100 mg 100 mg PO DAILY 09/23/21 09/23/21 History tablet,extended release 24 hr multivitamin 1 tab PO QAM 09/23/21 09/23/21 History omeprazole 20 mg capsule,delayed 20 mg PO QAM 09/23/21 09/23/21 History release tamsulosin 0.4 mg capsule 0.4 mg PO HS 09/23/21 09/23/21 History Patient History Medical History BPH (benign prostatic hyperplasia) Depression Environmental allergies Essential hypertension GERD (gastroesophageal reflux disease) Prostate CA Restless leg syndrome Surgical History H/O vasectomy History of hernia surgery History of total left knee replacement Hx of tonsillectomy Family History Father , age 62 Heart disease Mother , ~70 y/o Heart disease Stroke Social History Smoking Status: Never smoker Second Hand Exposure: No; Hx Alcohol Use: Yes Alcohol type: beer Hx Substance Use: No Preferred Language: Vietnamese Communication Ability: Effective Moving Picture Operator Required: No Beliefs That Will Affect Care: None Current Living Situation: Spouse Current Living Situation Comment: lives with fiance Other Information That Helps Us Care for You: No Feels Safe at Home: Yes Safety Concerns: Feels Safe At This Time Assistive Devices: None Review of Systems Review of Systems: 14 point review of systems negative outside of what is listed above in HPI Physical Exam Physical Exam: General: Alert and oriented, no acute distress HEENT: Normocephalic, mucous membranes moist Cardiovascular: Regular rate Pulmonary: Nonlabored respirations Abdomen: Nondistended : Circumcised phallus with orthotopic meatus. Minimal erythema and edema. Small amount of serous drainage from penoscrotal incision. No obvious fluid collections palpable. Nontender to palpation. Evidence of pump in scrotum and cylinders in corpora on exam. No purulent discharge. Extremities: Moves all 4 spontaneously Neuro: No gross deficits Skin: Warm, dry, no rashes noted Results & Data ([facility]) Vital Signs (Past 12 Hours) Vital Signs Temp Pulse Pulse Resp BP BP Pulse Ox 05/11/22 13:52 71 05/11/22 12:36 36.4 C L 70 18 129/69 93 05/11/22 08:35 36.9 C 70 18 134/84 94 05/11/22 03:38 36.8 C 65 18 112/70 95 O2 Del Method 05/11/22 13:52 05/11/22 12:36 Room Air 05/11/22 08:35 Room Air 05/11/22 03:38 Room Air PG Care Time/CCT Total # of Minutes Spent Total Time Spent with Patient: Total time spent is greater than 50% in coordination of care (as documented) at patient's floor/unit and/or counseling patient: [place] [address] Initial Inpt Care Lvl 3 Patient Type New Diagnoses History of penile implant Z96.0 Fever R50.9
--- NOTE | 2022-05-11 19:18 | Hospitalist Progress Note ---
Date of Service May 11, 2022 Assessment & Plan (1) Fever: (2) GERD (gastroesophageal reflux disease): (3) BPH (benign prostatic hyperplasia): (4) Essential hypertension: Plan Patient is a 72-year-old male with past medical history of prostate cancer status postradiation, hypertension, BPH, GERD presented to the ED with fever, headache and questionable strokelike symptoms. Lumbar puncture was done in the emergency department. CSF is unremarkable for any signs of infection. CT head, CTA head and neck are unremarkable. Sepsis-POA Likely due to postoperative penile prosthetic infection/abscess --CT ABD:There is skin thickening and subcutaneous edema within the penis and scrotum. There is a linear subcutaneous peripheral enhancing fluid collection within the anterior mid scrotum which measures approximately 10.0 x 1.9 x 1.8 cm. This extends from the anterior scrotum near the skin surface to the base of the penis. This also partially surrounds the prosthesis within the scrotum as well as the prosthetic tubes extending to the cavernosal prostheses. No gas within this fluid collection. However, this is concerning for an abscess. --Blood culture negative to date --CSF culture negative --UA not suggestive for infection -- Continue vancomycin, cefepime --Appreciate urology input --N.p.o. after midnight for possible procedure Headache: Likely secondary to above MRI Brain:No acute intracranial abnormality. CSF studies noncontributory Appreciate neurology input Ascending thoracic aortic aneurysm Incidental finding on CT CT showed fusiform dilation of the ascending thoracic aorta, 4.4 cm Follow up as outpatient BPH- on tamsulosin GERD- on PPI H/O prostate ca s/p radiation DVT Px: Lovenox SQ Code Status Full Code Admission and Anticipated Discharge Date Admission Date: May 09, 2022 Subjective Patient is seen and examined at bedside States having scrotal swelling, erythema and increased urinary frequency which is worsening since overnight Denies any pain No other complaints Discussed with urology today Review of Systems Review of Systems: All systems reviewed & are unremarkable except as noted in Subjective Physical Exam Physical Exam: Physical Exam: Vitals signs as noted above General Appearance:Moderately built and nourished, no apparent distress Head: normocephalic, Atraumatic Eyes: normal inspection, EOMI Neck: supple, Trachea midline Respiratory/Chest: Normal breath sounds, CTA, No accessory muscle use Cardiovascular: S1, S2, No murmur Abdomen/GI:Soft, Non tender, Bowel sounds present : Penoscrotal incision with some discharge, scrotal swelling, mild erythema. Extremities/Musculoskeletal:normal inspection, no edema Neurologic/Psych:AAOX3, grossly no focal neurological deficits Skin: normal color, warm Results & Data Results & Data ([facility]) Vital Signs (Past 12 Hours) Vital Signs Temp Pulse Pulse Resp BP Pulse Ox O2 Del Method 05/11/22 17:14 36.7 C 81 18 145/87 H 93 05/11/22 13:52 71 05/11/22 12:36 36.4 C L 70 18 129/69 93 Room Air 05/11/22 08:35 36.9 C 70 18 134/84 94 Room Air Laboratory Results Short CBC 05/11/22 Range/Units 05:22 WBC 15.64 H (4.8-10.8) K/ul Hgb 12.1 L (14.0-18.0) g/dl Hct 35.9 L (40.1-51.0) % Plt Count 204 (130-400) K/uL BMP 05/11/22 05:22 Sodium 137 Potassium 3.8 Chloride 107 Carbon Dioxide 25 BUN 19 Creatinine 1.25 Glucose 124 H Calcium 8.4 L (1) GERD (gastroesophageal reflux disease) Esophagitis presence: esophagitis presence not specified Qualified Code(s): K21.9 - Gastro-esophageal reflux disease without esophagitis
[2022-05-11] MEDS: MELATONIN 3 MG TAB PO SCH (20:01)
[2022-05-11] MEDS: TAMSULOSIN HCL 0.4 MG CAP PO SCH (20:03)
[2022-05-12] MEDS: CEFEPIME 2,000 MG in SYRINGE 0 ML IV SCH ×2 (01:26→08:47)
[2022-05-12 05:57] LABS: Basophils # (auto) 0.04 K/uL (0-0.2); Basophils % (auto) 0.4 %; Eosinophils # (auto) 0.92 K/uL (0-0.50); Eosinophils % (auto) 8.4 %; Hematocrit (blood only) 38.3 % (40.1-51.0); Hemoglobin 12.9 g/dl (14.0-18.0); Immature Granulocytes # (auto) 0.04 K/uL (0.00-0.02); Immature Granulocytes % (auto) 0.4 %; Lymphocytes # (auto) 1.37 K/uL (1.2-3.4); Lymphocytes % (auto) 12.6 %; Mean Corpuscular Hemoglobin 29.9 pg (25.0-34.0); Mean Corpuscular Hgb Conc 33.7 g/dL (32.0-36.0); Mean Corpuscular Volume 88.7 fL (80.0-100.0); Mean Platelet Volume 11.3 fL (9.4-12.4); Monocytes # (auto) 1.08 K/uL (0.24-0.82); Monocytes % (auto) 9.9 %; Neutrophils # (auto) 7.46 K/uL (1.4-6.5); Neutrophils % (auto) 68.3 %; Platelet Count 223 K/uL (130-400); RDW Coefficient of Variation 14.4 % (11.5-14.5); RDW Standard Deviation 46.4 fL (36.4-46.3); Red Blood Count 4.32 M/uL (4.63-6.08); White Blood Count 10.91 K/ul (4.8-10.8)
[2022-05-12 06:24] LABS: BUN Creatinine Ratio 12.7 (10-20); Calcium 8.8 mg/dl (8.5-10.1); Est GFR (African American) 64.7 ml/min; Est GFR (Non-African American) 55.8 ml/min
[2022-05-12] MEDS: ENOXAPARIN INJ 40 MG/0.4 ML SYR SQ SCH (06:58)
--- NOTE | 2022-05-12 08:14 | Urology Progress Note ---
Date of Service May 12, 2022 Assessment & Plan (1) History of penile implant: (2) Fever: Plan 72-year-old male who presented with fever with concern for possible infection of recent penile implant. CT scan showed fluid collection. Patient has improved subjectively and objectively on antibiotics alone. Patient reports feeling better today. Exam has improved. Leukocytosis has improved. Spoke with patient's primary surgeon at [facility] we both agree that this can be managed on an outpatient basis as he has stabilized Okay to discharge patient home. Recommend 7 days of Bactrim DS twice daily. [facility] will likely see patient this upcoming Monday to discuss options. This plan was discussed with patient and he was agreeable. Okay to give a diet. Admission and Anticipated Discharge Date Admission Date: May 09, 2022 Subjective No acute issues overnight. Afebrile with stable vitals. Leukocytosis downtrending from 15-10. Patient reports swelling improved. No current complaints. Review of Systems Review of Systems: 14 point review of systems negative outside of what is listed above in HPI Physical Exam Physical Exam: General: Alert and oriented, no acute distress HEENT: Normocephalic, mucous membranes moist Pulmonary: Nonlabored respirations Abdomen: Nondistended : Mild edema of penis and scrotum. Erythema slightly improved. No fluctuance appreciated. No drainage from scrotum today. Exam appears improved from yesterday. Extremities: Moves all 4 spontaneously Neuro: No gross deficits Skin: Warm, dry, no rashes noted Results & Data ([facility]) Vital Signs (Past 12 Hours) Vital Signs Temp Pulse Resp BP BP Pulse Ox Pulse Ox 05/12/22 07:05 36.7 C 80 20 159/100 H 95 05/12/22 03:21 37.0 C 85 18 151/88 H 96 05/12/22 00:00 96 05/11/22 23:26 36.7 C 61 18 148/87 H 96 O2 Del Method O2 Del Method 05/12/22 07:05 Room Air 05/12/22 03:21 Room Air 05/12/22 00:00 Room Air 05/11/22 23:26 Room Air PG Care Time/CCT Total # of Minutes Spent Total Time Spent with Patient: Total time spent is greater than 50% in coordination of care (as documented) at patient's floor/unit and/or counseling patient: Coding Level of Care Code 93637 Subseq Hosp Care Lvl 2 Diagnoses History of penile implant Z96.0 Fever R50.9
[2022-05-12] MEDS: MULTIVITAMIN TAB PO SCH (08:42)
[2022-05-12] MEDS: METOPROLOL SUCC 50MG EXT REL TAB PO SCH (08:42)
[2022-05-12] MEDS: PANTOprazole 40 MG TAB PO SCH (08:42)
[2022-05-12] MEDS: lisinopril 20 MG TAB PO SCH (08:42)
[2022-05-12] MEDS: amLODIPine BESYLATE 5 MG TAB PO SCH (08:43)
[2022-05-12] MEDS: ACETAMINOPHEN 325 MG TAB PO PRN (08:47)
--- NOTE | 2022-05-12 10:47 | Hospitalist Progress Note ---
Date of Service May 12, 2022 Assessment & Plan (1) Fever: (2) GERD (gastroesophageal reflux disease): (3) BPH (benign prostatic hyperplasia): (4) Essential hypertension: Plan Patient is a 72-year-old male with past medical history of prostate cancer status postradiation, hypertension, BPH, GERD presented to the ED with fever, headache and questionable strokelike symptoms. Lumbar puncture was done in the emergency department. CSF is unremarkable for any signs of infection. CT head, CTA head and neck are unremarkable. Sepsis-POA Likely due to postoperative penile prosthetic infection/abscess --CT ABD:There is skin thickening and subcutaneous edema within the penis and scrotum. There is a linear subcutaneous peripheral enhancing fluid collection within the anterior mid scrotum which measures approximately 10.0 x 1.9 x 1.8 cm. This extends from the anterior scrotum near the skin surface to the base of the penis. This also partially surrounds the prosthesis within the scrotum as well as the prosthetic tubes extending to the cavernosal prostheses. No gas within this fluid collection. However, this is concerning for an abscess. --Blood culture negative to date --CSF culture negative --UA not suggestive for infection -- Continue vancomycin, cefepime>>>Transition to Bactrim as recommended by urology --Appreciate urology input -- Has follow-up with urology Dr. Khanna on Monday05/16/22 Headache: Likely secondary to above MRI Brain:No acute intracranial abnormality. CSF studies noncontributory Appreciate neurology input Improved Ascending thoracic aortic aneurysm Incidental finding on CT CT showed fusiform dilation of the ascending thoracic aorta, 4.4 cm Follow up as outpatient BPH- on tamsulosin GERD- on PPI H/O prostate ca s/p radiation DVT Px: Lovenox SQ Code Status Full Code Disposition Home Admission and Anticipated Discharge Date Admission Date: May 09, 2022 Subjective Patient is seen and examined at bedside Eager to get discharged Reports scrotal swelling, erythema improved Discussed with Urology today No other complaints Review of Systems Review of Systems: All systems reviewed & are unremarkable except as noted in Subjective Physical Exam Physical Exam: Physical Exam: Vitals signs as noted above General Appearance:Moderately built and nourished, no apparent distress Head: normocephalic, Atraumatic Eyes: normal inspection, EOMI Neck: supple, Trachea midline Respiratory/Chest: Normal breath sounds, CTA, No accessory muscle use Cardiovascular: S1, S2, No murmur Abdomen/GI:Soft, Non tender, Bowel sounds present : Penoscrotal incision with some discharge, scrotal swelling, mild erythema. Extremities/Musculoskeletal:normal inspection, no edema Neurologic/Psych:AAOX3, grossly no focal neurological deficits Skin: normal color, warm Results & Data Results & Data ([facility]) Vital Signs (Past 12 Hours) Vital Signs Temp Pulse Resp BP BP Pulse Ox Pulse Ox 05/12/22 07:05 36.7 C 80 20 159/100 H 95 05/12/22 03:21 37.0 C 85 18 151/88 H 96 05/12/22 00:00 96 05/11/22 23:26 36.7 C 61 18 148/87 H 96 O2 Del Method O2 Del Method 05/12/22 07:05 Room Air 05/12/22 03:21 Room Air 05/12/22 00:00 Room Air 05/11/22 23:26 Room Air Laboratory Results Short CBC 05/12/22 Range/Units 05:31 WBC 10.91 H (4.8-10.8) K/ul Hgb 12.9 L (14.0-18.0) g/dl Hct 38.3 L (40.1-51.0) % Plt Count 223 (130-400) K/uL BMP 05/12/22 05:31 Sodium 137 Potassium 4.0 Chloride 104 Carbon Dioxide 28 BUN 16 Creatinine 1.26 Glucose 126 H Calcium 8.8 (1) GERD (gastroesophageal reflux disease) Esophagitis presence: esophagitis presence not specified Qualified Code(s): K21.9 - Gastro-esophageal reflux disease without esophagitis
--- NOTE | 2022-05-12 10:55 | Discharge Summary ---
Date of Service May 12, 2022 Admission HPI Per Admitting Provider CHIEF COMPLAINT: Headache, dizziness, imbalance and fever. HISTORY OF PRESENT ILLNESS: A 72-year-old male with past medical history significant for hypertension, history of prostate cancer, BPH, restless leg syndrome, depression, nocturia, history of impotence recently, on 03/17/2022 having insertion of penile prosthesis inflatable, presents with fever and headache. The patient has had a headache in the morning and at around 3:30 p.m., as per the , he started having dizziness and he could not walk and also developed fever. That is the reason, he was brought in here. The patient also has some cough. No runny nose, no sore throat, no difficulty swallowing, alert and oriented. No blurred visions, no earaches, no chest pain. The patient was requiring oxygen in the ER, but denies any shortness of breath. No nausea, no vomiting, no abdominal pain. Normal bowel and bladder movements. He says he has been micturating a lot. Denies any burning micturition, no swelling in the legs, no rash seen. Currently, resting comfortably. He says headache is better but still has some.. Admission Exam Per Admitting Provider PHYSICAL EXAMINATION: GENERAL: The patient is alert and oriented, not in acute distress. VITAL SIGNS: Temperature 38.3, pulse of 130, respiratory rate 22, blood pressure 122/70, oxygen 92% on 4 L. HEENT: Pupils equal, round and reactive to light. Oral mucosa moist. NECK: No JVD, no neck masses. CARDIOVASCULAR: S1 and S2 heard. Regular rate and rhythm. No murmur, no gallop. RESPIRATORY SYSTEM: Normal AP diameter. No accessory muscle use. No wheezing, no crackles. ABDOMEN: Soft, bowel sounds present, nontender, no distention. CENTRAL NERVOUS SYSTEM: Alert and oriented x3. Speech is clear. No facial droop. Power 5/5 in all extremities. Sensation is intact. No pronator drift. Coordination of movements normal. [id number] test normal. Position sense intact. EXTREMITIES: No edema, no erythema. Principal Diagnosis Sepsis Suspected postoperative penile prosthetic infection/abscess Ascending thoracic aortic aneurysm Discharge Data Allergies Allergy/AdvReac Type Severity Reaction Status Date / Time mold Allergy Mild Congested Verified 09/23/21 15:52 dust Allergy Mild Congested Uncoded 09/23/21 15:52 pets Allergy Mild Congested Uncoded 09/23/21 15:52 Consultations 05/09/22 21:37 ED Decision to Admit Stat 05/09/22 21:42 ED Decision to Admit Stat 05/10/22 08:00 Consult Neurology Routine 05/11/22 12:13 Consult Urology Routine Procedures Performed Laboratory Results WBC 10.91 K/ul (4.8-10.8) H 05/12/22 05:31 RBC 4.32 M/uL (4.63-6.08) L 05/12/22 05:31 Hgb 12.9 g/dl (14.0-18.0) L 05/12/22 05:31 POC Hgb 16.7 g/dl (14.0-18.0) 05/09/22 17:53 Hct 38.3 % (40.1-51.0) L 05/12/22 05:31 POC Hct 49 % (42-52) 05/09/22 17:53 MCV 88.7 fL (80.0-100.0) 05/12/22 05:31 MCH 29.9 pg (25.0-34.0) 05/12/22 05:31 MCHC 33.7 g/dL (32.0-36.0) 05/12/22 05:31 RDW Std Deviation 46.4 fL (36.4-46.3) H 05/12/22 05:31 RDW Coeff of Carine 14.4 % (11.5-14.5) 05/12/22 05:31 Plt Count 223 K/uL (130-400) 05/12/22 05:31 MPV 11.3 fL (9.4-12.4) 05/12/22 05:31 Immature Gran % (Auto) 0.4 % 05/12/22 05:31 Neut % (Auto) 68.3 % 05/12/22 05:31 Lymph % (Auto) 12.6 % 05/12/22 05:31 [place] % (Auto) 9.9 % 05/12/22 05:31 Eos % (Auto) 8.4 % 05/12/22 05:31 Baso % (Auto) 0.4 % 05/12/22 05:31 Neut # (Auto) 7.46 K/uL (1.4-6.5) H 05/12/22 05:31 Lymph # (Auto) 1.37 K/uL (1.2-3.4) 05/12/22 05:31 [place] # (Auto) 1.08 K/uL (0.24-0.82) H 05/12/22 05:31 Eos # (Auto) 0.92 K/uL (0-0.50) H 05/12/22 05:31 Baso # (Auto) 0.04 K/uL (0-0.2) 05/12/22 05:31 Immature Gran # (Auto) 0.04 K/uL (0.00-0.02) H 05/12/22 05:31 RBC Morphology Unremarkable 05/10/22 05:06 PT 11.4 Seconds (9.0-12.0) 05/09/22 17:35 INR 1.1 (0.9-1.1) 05/09/22 17:35 APTT 24.1 Seconds (21.0-31.0) 05/09/22 17:35 PTT Ratio 0.9 05/09/22 17:35 ABG pH 7.47 (7.35-7.45) H 05/09/22 18:06 ABG pCO2 34 mmHg (35-46) L 05/09/22 18:06 ABG pO2 78 mmHg (80-95) L 05/09/22 18:06 ABG HCO3 25 mmol/L (19-24) H 05/09/22 18:06 ABG O2 Saturation 96.9 % (90-95) H 05/09/22 18:06 ABG Base Excess 1.5 mEq/L (-9-1.8) 05/09/22 18:06 Mars Test POS (Pos) 05/09/22 18:06 Oxygen Given ROOM AIR 05/09/22 18:06 POC Sodium 137 mmol/L (135-144) 05/09/22 17:53 Sodium 137 mmol/L (136-145) 05/12/22 05:31 POC Potassium 4.1 mmol/L (3.3-5.0) 05/09/22 17:53 Potassium 4.0 mmol/L (3.5-5.1) 05/12/22 05:31 POC Chloride 99 mmol/L (101-112) L 05/09/22 17:53 Chloride 104 mmol/L (98-107) 05/12/22 05:31 Carbon Dioxide 28 mmol/L (21-32) 05/12/22 05:31 POC Total CO2 24 mmol/L (24-31) 05/09/22 17:53 Anion Gap 5 (3-11) 05/12/22 05:31 POC Anion Gap 19.0 mmol/L (16-25) 05/09/22 17:53 POC BUN 17 mg/dl (7-18) 05/09/22 17:53 BUN 16 mg/dl (6-23) 05/12/22 05:31 Creatinine 1.26 mg/dl (0.6-1.4) 05/12/22 05:31 POC Creatinine 1.2 mg/dl (0.6-1.3) 05/09/22 17:53 Est Cr Clr Drug Dosing 63.0 ml/min 05/12/22 05:31 Est GFR ( Amer) 64.7 ml/min 05/12/22 05:31 Est GFR (Non-Af Amer) 55.8 ml/min 05/12/22 05:31 BUN/Creatinine Ratio 12.7 (10-20) 05/12/22 05:31 Glucose 126 mg/dl (70-99(Fasting)) H 05/12/22 05:31 POC Glucose 128 mg/dl (70-99) H 05/09/22 17:41 POC Glucose (other) 135 mg/dl (70-99) H 05/09/22 17:53 Estimat Average Glucose 134 mg/dl 05/10/22 05:06 Hemoglobin A1c 6.3 % (4.5-5.6) H 05/10/22 05:06 Lactate 1.0 mmol/L (0.4-2.0) 05/09/22 18:06 Calcium 8.8 mg/dl (8.5-10.1) 05/12/22 05:31 POC Ioniz Calcium [place] 1.19 mmol/l (1.12-1.32) 05/09/22 17:53 Magnesium 1.7 mg/dl (1.7-2.4) 05/10/22 05:06 Total Bilirubin 1.2 mg/dl (0.2-1.0) H 05/09/22 17:35 AST 15 U/L (13-39) 05/09/22 17:35 ALT 16 U/L (7-52) 05/09/22 17:35 Alkaline Phosphatase 55 U/L (34-104) 05/09/22 17:35 Troponin I High Sens 19.9 pg/ml (0-20) 05/09/22 17:35 Total Protein 6.8 gm/dl (6.0-8.3) 05/09/22 17:35 Albumin 4.1 gm/dl (3.4-5.0) 05/09/22 17:35 Globulin 2.7 gm/dl (2.5-4.0) 05/09/22 17:35 Albumin/Globulin Ratio 1.5 (0.9-2) 05/09/22 17:35 Triglycerides 51 mg/dl (0-150) 05/10/22 05:06 Cholesterol 115 mg/dl (0-200) 05/10/22 05:06 LDL Cholesterol, Calc 62 mg/dl 05/10/22 05:06 VLDL Cholesterol, Calc 10 mg/dl (0-30) 05/10/22 05:06 HDL Cholesterol 43 mg/dl 05/10/22 05:06 Cholesterol/HDL Ratio 2.7 (0-5) 05/10/22 05:06 Procalcitonin < 0.05 ng/ml (0-0.5) 05/09/22 17:35 Urine Color Yellow 05/09/22 18:20 Urine Appearance Clear (Clear) 05/09/22 18:20 Urine pH 6.0 (4.5-7.5) 05/09/22 18:20 Ur Specific [place] 1.021 (1.000-1.030) 05/09/22 18:20 Urine Protein Negative (Negative) 05/09/22 18:20 Urine Glucose (UA) Negative (Negative) 05/09/22 18:20 Urine Ketones Negative (Negative) 05/09/22 18:20 Urine Blood Negative (Negative) 05/09/22 18:20 Urine Nitrite Negative (Negative) 05/09/22 18:20 Urine Bilirubin Negative (Negative) 05/09/22 18:20 Urine Urobilinogen Negative (Negative) 05/09/22 18:20 Ur Leukocyte Esterase Negative (Negative) 05/09/22 18:20 Fluid Comment 05/09/22 20:41 CSF Appearance Clear 05/09/22 20:41 CSF Color Colorless 05/09/22 20:41 Xanthrochromic No xanthochromia 05/09/22 20:41 CSF WBC 1 /uL (0-5) 05/09/22 20:41 CSF RBC 12 /uL (0-) 05/09/22 20:41 CSF Cell Count Tube # 3 05/09/22 20:41 CSF Chemistry Tube # 1 05/09/22 20:41 CSF Glucose 75 mg/dl (40-70) H 05/09/22 20:41 CSF Total Protein 36.9 mg/dl (15-45) 05/09/22 20:41 CSF C.neoform/gat PCR Not Detected (NotDetected) 05/09/22 20:41 CSF CMV DNA (PCR) Not Detected (NotDetected) 05/09/22 20:41 CSF Enterovirus (PCR) Not Detected (NotDetected) 05/09/22 20:41 CSF E. coli K1 (PCR) Not Detected (NotDetected) 05/09/22 20:41 CSF H. influenzae (PCR) Not Detected (NotDetected) 05/09/22 20:41 CSF HSV I (PCR) Not Detected (NotDetected) 05/09/22 20:41 CSF HSV II (PCR) Not Detected (NotDetected) 05/09/22 20:41 CSF HHV 6 (PCR) Not Detected (NotDetected) 05/09/22 20:41 CSF L.monocytogenes PCR Not Detected (NotDetected) 05/09/22 20:41 CSF N. meningitidis PCR Not Detected (NotDetected) 05/09/22 20:41 CSF Parechovirus (PCR) Not Detected (NotDetected) 05/09/22 20:41 CSF S. agalactiae (PCR) Not Detected (NotDetected) 05/09/22 20:41 CSF S. pneumoniae (PCR) Not Detected (NotDetected) 05/09/22 20:41 CSF VZV DNA (PCR) Not Detected (NotDetected) 05/09/22 20:41 Random Vancomycin 11.8 mcg/ml (10-20) 05/11/22 09:32 Urine Opiates Screen Neg (Neg) 05/09/22 18:20 Ur Methadone, Qual Neg (Neg) 05/09/22 18:20 Urine Barbiturates Neg (Neg) 05/09/22 18:20 Ur Phencyclidine (PCP) Neg (Neg) 05/09/22 18:20 U Amphetamin/Meth Scrn Neg (Neg) 05/09/22 18:20 MDMA (Ecstasy) Screen Neg (Neg) 05/09/22 18:20 U Benzodiazepines Scrn Neg (Neg) 05/09/22 18:20 Ur Cocaine Metabolite Neg (Neg) 05/09/22 18:20 U Marijuana (THC) Screen Neg (Neg) 05/09/22 18:20 Lyme Disease IgG Ab Negative (Negative) 05/09/22 17:35 Lyme Disease IgM Ab Negative (Negative) 05/09/22 17:35 SARS-CoV-2 (PCR) NEGATIVE (Negative) 05/09/22 17:59 Influenza Type A (PCR) Negative (Neg) 05/09/22 17:59 Influenza Type B (PCR) Negative (Neg) 05/09/22 17:59 RSV (RT-PCR) Negative (Neg) 05/09/22 17:59 Blood Type A Negative 05/09/22 18:08 Antibody Screen NEGATIVE 05/09/22 18:08 Impressions Chest X-Ray 05/09/22 17:44 XR chest 1V portable HISTORY: Stroke Like Symptoms COMPARISON: Chest 09/23/2021. FINDINGS: No pneumothorax. The largest. There is progressive interstitial/vascular thickening consistent with mild congestive change. There is an old, healed left clavicle fracture. A few left basilar linear densities persist and favor subsegmental atelectasis or scarring. IMPRESSION: Interval progression of the mild congestive change. ACT 112: Negative or not required by law. Electronically signed by: Gui North M.D. 05/09/2022 6:[address] 05/09/22 17:44 CT head/brain wo con CLINICAL HISTORY: 72 years-old Male with Stroke Like Symptoms. Acute strokelike symptoms TECHNIQUE: Multiple axial CT images of the head were obtained without contrast. A dose lowering technique was utilized adhering to the principles of ALARA. COMPARISON: CTA head and neck of same day, brain MRI 09/23/2021 FINDINGS: No acute intracranial hemorrhage, midline shift, intracranial mass, hydrocephalus, territorial ischemia or abnormal extra-axial collection. Involutional changes with mild ex vacuo ventriculomegaly. White matter hypodensities suggestive of chronic microvascular ischemic disease. Cerebral vascular calcifications. The calvarium is intact. The paranasal sinuses, mastoid air cells, and middle ear cavities are clear. IMPRESSION: No acute intracranial abnormality. ACT 112: Negative or not required by law. The above report was generated using voice recognition software. It may contain grammatical, syntax or spelling errors. Electronically signed by: Jovanny Nolan M.D. 05/09/2022 7:15 PM Head CTA 05/09/22 17:44 CT angio neck with con, CT angio head w con CLINICAL HISTORY: 72 years-old Male with Stroke Like Symptoms. Acute stroke like symptoms COMPARISON STUDY: Head CT of same day, CTA head and neck 09/23/2021 TECHNIQUE: Following the IV administration of 112 now of Optiray, CT angiogram of the head and neck was performed from the aortic arch to the skull apex. Images are reviewed in the axial, sagittal, and coronal planes. 3-D MIPS images are created and assessed. IV contrast was administered without complication. All measurements were calculated based on NASCET criteria. A dose lowering technique was utilized adhering to the principles of ALARA. FINDINGS: Atherosclerosis of the thoracic aorta. Patency of the innominate and imaged subclavian arteries. Mild atherosclerosis of the common carotid arteries. Atherosclerotic plaque of the left greater than right carotid bulbs results in less than 50% stenosis bilaterally. Study is mildly motion degraded. The internal carotid, middle and anterior cerebral arteries are patent bilaterally. Patent and codominant vertebral arteries. There is atherosclerotic plaque at the origin of the left vertebral artery which results in mild stenosis, suboptimally visualized secondary to motion artifact. The basilar and posterior cerebral arteries are patent. There is origin of the right posterior cerebral artery. The cerebral venous sinuses are patent. There is no abnormal intracranial enhancement. The lung apices are clear. No pneumothorax. Unremarkable thyroid. Degenerative changes of the cervical spine. IMPRESSION: 1. Atherosclerotic vascular disease. No aneurysm, dissection, high-grade stenosis or arterial occlusion. 2. Atherosclerotic plaque of the carotid bulbs results in less than 50% stenosis bilaterally. ACT 112: Negative or not required by law. The above report was generated using voice recognition software. It may contain grammatical, syntax or spelling errors. Electronically signed by: Jovanny Nolan M.D. 05/09/2022 7:27 PM Neck CTA 05/09/22 17:44 CT angio neck with con, CT angio head w con CLINICAL HISTORY: 72 years-old Male with Stroke Like Symptoms. Acute stroke like symptoms COMPARISON STUDY: Head CT of same day, CTA head and neck 09/23/2021 TECHNIQUE: Following the IV administration of 112 now of Optiray, CT angiogram of the head and neck was performed from the aortic arch to the skull apex. Images are reviewed in the axial, sagittal, and coronal planes. 3-D MIPS images are created and assessed. IV contrast was administered without complication. All measurements were calculated based on NASCET criteria. A dose lowering technique was utilized adhering to the principles of ALARA. FINDINGS: Atherosclerosis of the thoracic aorta. Patency of the innominate and imaged subclavian arteries. Mild atherosclerosis of the common carotid arteries. Atherosclerotic plaque of the left greater than right carotid bulbs results in less than 50% stenosis bilaterally. Study is mildly motion degraded. The internal carotid, middle and anterior cerebral arteries are patent bilaterally. Patent and codominant vertebral arteries. There is atherosclerotic plaque at the origin of the left vertebral artery which results in mild stenosis, suboptimally visualized secondary to motion artifact. The basilar and posterior cerebral arteries are patent. There is origin of the right posterior cerebral artery. The cerebral venous sinuses are patent. There is no abnormal intracranial enhancement. The lung apices are clear. No pneumothorax. Unremarkable thyroid. Degenerative changes of the cervical spine. IMPRESSION: 1. Atherosclerotic vascular disease. No aneurysm, dissection, high-grade stenosis or arterial occlusion. 2. Atherosclerotic plaque of the carotid bulbs results in less than 50% stenosis bilaterally. ACT 112: Negative or not required by law. The above report was generated using voice recognition software. It may contain grammatical, syntax or spelling errors. Electronically signed by: Jovanny Nolan M.D. 05/09/2022 7:27 PM Chest CTA 05/09/22 17:48 CT angio chest PE protocol CT DOSE: 2047.86 mGy.cm HISTORY: 72 years-old Male with ro PE. Acute strokelike symptoms with chest pain TECHNIQUE: Multiple CTA images of the chest were obtained after the intravenous administration of 112 ml Optiray. Coronal and sagittal MIPS were obtained from the axial data set and were submitted for review. All measurements were obtained according to NASCET criteria. A dose lowering technique was utilized adhering to the principles of ALARA. COMPARISON: CTA head neck of same day FINDINGS: CTA: Moderate cardiomegaly. No pericardial effusion. Moderate coronary artery calcifications. Fusiform dilation of the ascending thoracic aorta, 4.4 cm. Patency of the imaged great vessels. Respiratory motion artifact limited evaluation of the pulmonary arterial tree. No central pulmonary emboli identified. The study is also limited secondary to contrast bolus timing. CT CHEST: Unremarkable thyroid. No lymphadenopathy. No pneumothorax, pleural effusion or overt pulmonary edema. Bilateral subsegmental groundglass densities suggest atelectasis. There are no suspicious pulmonary nodules or masses identified. The central airways are patent. No acute process of the imaged upper abdomen. There are a few scattered cysts within the left lobe of the liver measuring up to 2.2 cm. Unremarkable soft tissues. No acute fracture healed chronic anterior fractures. IMPRESSION: 1. Motion degraded exam. No central pulmonary emboli identified. 2. Cardiomegaly with fusiform dilation of the ascending thoracic aorta, 4.4 cm. ACT 112: Negative or not required by law. The above report was generated using voice recognition software. It may contain grammatical, syntax or spelling errors. Electronically signed by: Jovanny Nolan M.D. 05/09/2022 7:32 PM Brain MRI 05/10/22 00:19 MRI OF THE BRAIN COMBO CLINICAL HISTORY: Gait imbalance. Headache. COMPARISON STUDY: CT of the brain dated 05/09/2022. TECHNIQUE: MRI of the brain was performed utilizing various T1 and T2-weighted sequences in the axial, sagittal, and coronal planes. Contrast-enhanced sequences were acquired following the administration of 10 cc of Gadavist. FINDINGS: Brain parenchyma: There is age-related involutional change noting mild subcortical and periventricular microangiopathic disease. There is no hemorrhage or mass effect. There is no restricted diffusion to suggest acute ischemia. A developmental venous anomaly is incidentally noted in the right parietal cortex. No enhancing mass lesion is identified on the postcontrast images. Tee-white matter differentiation is preserved. No extra-axial fluid collection is seen. The cerebellar tonsils are normal in configuration. Ventricles, sulci, and cisterns: Prominent secondary to involutional change. Pituitary and sella: Unremarkable. Intracranial vasculature: Normal flow voids are maintained at the skull base. Orbits: The bony orbits are grossly intact. Orbital contents are normal in a ppearance. Sinuses and mastoids: Clear. Calvarium: Unremarkable. Cervical cord: Partially visualized cervical spinal cord is normal in morphology and signal intensity. IMPRESSION: No acute intracranial abnormality. ACT 112: Negative or not required by law. Electronically signed by: Ady Francisco M.D. 05/10/2022 7:28 AM Abdomen/Pelvis CT 05/11/22 12:[address] WITH IV CONTRAST CT DOSE: 1221.91 mGycm HISTORY: Penile and scrotal swelling. r/o infected penile prosthesis TECHNIQUE: Multiaxial CT images of the abdomen and pelvis were performed following the use of intravenous contrast. A dose lowering technique was utilized adhering to the principles of ALARA. COMPARISON STUDY: None. FINDINGS: There is a trace right pleural effusion. Mild dependent changes seen at the lung bases. No pneumoperitoneum. No pneumatosis. Bilateral L5 spondylolysis with associated grade 1 anterolisthesis. Mild scoliosis and degenerative disc disease noted within the lumbar spine. The heart is mildly enlarged. There are are a few hypodense lesions within the liver with the largest in the left hepatic lobe measuring 2.3 cm. These favor cysts. The main portal vein is patent. The gallbladder, spleen, adrenal glands, pancreas, and kidneys are unremarkable. No hydronephrosis. Moderate calcified plaque within the abdominal aorta. There is a mildly ectatic mid abdominal aorta measures up to 2.7 cm in diameter. No retroperitoneal or pelvic lymphadenopathy. Mild bladder wall thickening which may be due to chronic outlet obstruction. The prostate gland is mildly enlarged. There are few punctate metallic densities within the prostate gland. No pelvic free fluid. Colonic diverticulosis. No evidence for acute diverticulitis. No bowel wall thickening or obstruction. Normal appendix. The penile prosthesis is present. There is skin thickening and subcutaneous edema within the penis and scrotum. There is a linear subcutaneous peripheral enhancing fluid collection within the anterior mid scrotum which measures approximately 10.0 x 1.9 x 1.8 cm. This extends from the anterior scrotum near the skin surface to the base of the penis. This also partially surrounds the prosthesis within the scrotum as well as the prosthetic tubes extending to the cavernosal prostheses. No gas within this fluid collection. However, this is concerning for an abscess. This is best seen on images [id number] through [id number]. IMPRESSION: There is skin thickening and subcutaneous edema within the penis and scrotum. There is a linear subcutaneous peripheral enhancing fluid collection within the anterior mid scrotum which measures approximately 10.0 x 1.9 x 1.8 cm. This extends from the anterior scrotum near the skin surface to the base of the penis. This also partially surrounds the prosthesis within the scrotum as well as the prosthetic tubes extending to the cavernosal prostheses. No gas within this fluid collection. However, this is concerning for an abscess. ACT 112: Negative or not required by law. Electronically signed by: Gui North M.D. 05/11/2022 1:32 PM Ordered Studies 05/09/22 17:44 CT angio head w con Stat CT angio neck with con Stat CT head/brain wo con Stat 05/09/22 17:48 CT angio chest PE protocol Stat 05/10/22 00:19 MR brain wo/w con Urgent 05/11/22 12:16 CT abd pelvis IV con only Stat Hospital Course (1) Fever: (2) GERD (gastroesophageal reflux disease): (3) BPH (benign prostatic hyperplasia): (4) Essential hypertension: Plan Patient is a 72-year-old male with past medical history of prostate cancer status postradiation, hypertension, BPH, GERD presented to the ED with fever, headache and questionable strokelike symptoms. Lumbar puncture was done in the emergency department. CSF is unremarkable for any signs of infection. CT head, CTA head and neck are unremarkable. Sepsis-POA Likely due to postoperative penile prosthetic infection/abscess --CT ABD:There is skin thickening and subcutaneous edema within the penis and scrotum. There is a linear subcutaneous peripheral enhancing fluid collection within the anterior mid scrotum which measures approximately 10.0 x 1.9 x 1.8 cm. This extends from the anterior scrotum near the skin surface to the base of the penis. This also partially surrounds the prosthesis within the scrotum as well as the prosthetic tubes extending to the cavernosal prostheses. No gas within this fluid collection. However, this is concerning for an abscess. --Blood culture negative to date --CSF culture negative --UA not suggestive for infection -- Continue vancomycin, cefepime>>>Transition to Bactrim as recommended by urology --Appreciate urology input -- Has follow-up with urology Dr. Khanna on Monday05/16/22 Headache: Likely secondary to above MRI Brain:No acute intracranial abnormality. CSF studies noncontributory Appreciate neurology input Improved Ascending thoracic aortic aneurysm Incidental finding on CT CT showed fusiform dilation of the ascending thoracic aorta, 4.4 cm Follow up as outpatient BPH- on tamsulosin GERD- on PPI H/O prostate ca s/p radiation DVT Px: Lovenox SQ Code Status Full Code Disposition Home Total Time Total Time Spent Total Time Spent (In Minutes): 49 minutes Discharge Plan Discharge Items Patient Disposition: Home - Self-Care Reason For Visit: HEADACHE, FEVER Discharge Diagnosis: Sepsis Suspected postoperative penile prosthetic infection/abscess Ascending thoracic aortic aneurysm Activity: Per Instructions section Non-emergency contact: Primary Care Provider and Urologist Call non-emergency contact if: you have any medication questions, your symptoms worsen, your pain is concerning for you, you have a fever, your wound has increased redness, your wound has increased drainage and your wound pain has increased Follow-up/Referrals: Osito Alfaro MD [Primary Care Provider] - (Date & Time 05/17/2022 10:20 AM Provider Osito Alfaro MD Department [facility] ) Trevor Khanna MD [Outside Practitioners] - (Date & Time 05/16/2022 11:30 AM Provider [facility] Diet: Heart Healthy Diet Texture: Easy to Chew Addtl Attending Provider Instructions: Follow-up with your primary care physician in 1 week as advised Follow-up with your urologist on 05/16/22 as scheduled Follow up with Vascular surgery as outpatient for further evaluation of Ascending thoracic aortic aneurysm which was incidentally found on your CT scan. ---Start taking Bactrim DS twice a day for 1 week as recommended by your urologist. --- Your final blood culture results, CSF studies for Lyme's, VDRL are pending at the time of discharge. Follow-up with your physician for results. Seek immediate medical attention if your symptoms reoccur or worsen Please take all medications as instructed on discharge list below. Please call if you have any questions or problems. You can reach a [facility] hospitalist on duty at [facility] 24 hours a day by calling [phone] Pending Studies at Discharge: Yes Studies:: Final Blood Culture results, CSF for Lyme, VDRL Stand-Alone Forms: My [facility], Smoking Cessation Medications and DC Order Prescriptions: New sulfamethoxazole-trimethoprim [Bactrim DS] 800-160 mg tablet 1 tab PO BID 7 Days Qty: 14 0RF Continued multivitamin Tablet 1 tab PO QAM lisinopril 20 mg tablet 20 mg PO QAM amlodipine 5 mg tablet 5 mg PO QAM omeprazole 20 mg capsule,delayed release(DR/EC) 20 mg PO QAM melatonin 10 mg Tablet 10 mg PO HS metoprolol succinate 100 mg Tablet Extended Release 24 Hr 100 mg PO DAILY loratadine 10 mg Tablet 10 mg PO DAILY PRN (Reason: Allergy Symptoms) tamsulosin 0.4 mg capsule 0.4 mg PO HS Qty: 30 0RF Discharge Orders: Discharge Order (Routine); Ordered 05/12/22 Ordered By: Gilberto George/Other Patient Handouts: Prediabetes, 5 Steps for Eating Healthier Admission Data Admit Date/Time: 05/09/22 22:59 Attending Provider: Gilberto Jensen Admit Provider: Preston Diaz Primary Care Provider: Osito Alfaro Other Providers: Preston Diaz ; Rosalio Hinds ; Gunner Chance ; Lisa Moore ; Ann Vidal ; Estuardo Layton ; Ann Ramirez ; Adrien Anna ; Saumya Frazier ; Wallace Rosas ; Salima Delgado ; Farzaneh Green ; Jeison Tejeda
[2022-05-16 14:11] LABS: Lyme IgG Band Pattern CSF DNR; Lyme IgG CSF NO BANDS DETECTED; Lyme IgM Band Pattern CSF DNR; Lyme IgM CSF NO BANDS DETECTED
== END 2022-05-12 12:11 | disposition home or self-care (01) ==
LOC: ED 17:20 → INTOOBSV 22:59 → 4W 22:59 → SUATTDRO 22:59 → 4W 05-10 00:07
DX: N40.0 Benign prostatic hyperplasia without lower urinary tract symptoms; Z85.46 Personal history of malignant neoplasm of prostate; A41.9 Sepsis, unspecified organism; I10 Essential (primary) hypertension; Z79.899 Other long term (current) drug therapy; I71.21 Aneurysm of the ascending aorta, without rupture; Z96.0 Presence of urogenital implants

== ENCOUNTER 2024-05-22 21:46 | Inpatient (IN) ==
--- NOTE | 2024-05-22 22:38 | Emergency Department Note ---
History of Present Illness General Chief complaint: Eye Problems Stated complaint: DENTAL WORK, EYE INFECTION Time Seen by Provider: 05/22/24 22:29 History of Present Illness Maximum Pain Intensity: 5 This 74-year-old male who had dental surgery today of removal of his old implant and placement of a new implant presents ER for increasing right sided facial pain and swelling. Patient states the procedure was prolonged and he was awake during the procedure. He states the procedure lasted over 3 hours and should have been much less than this. Patient states his whole eyelid is swollen shut. His cheek is now gotten much more swollen since this time waiting in the ER to be seen. Patient states he only used lidocaine and no other medications today. He is had this before. Patient denies chest pain, dyspnea, fevers, difficulty swallowing or any other medical complaints. Home Medications Medication Instructions Recorded Confirmed Type loratadine 10 mg tablet 10 mg PO DAILY PRN Allergy Symptoms 09/23/21 05/23/24 History melatonin 10 mg tablet 10 mg PO HS 09/23/21 05/23/24 History multivitamin 1 tab PO QAM 09/23/21 05/23/24 History tamsulosin 0.4 mg capsule 0.4 mg PO HS #30 caps 05/12/22 05/23/24 Rx amlodipine 10 mg tablet 10 mg PO QAM 05/23/24 05/23/24 History azelastine 137 mcg (0.1 %) nasal 1 spray intranasal [facility] 05/23/24 05/23/24 History spray escitalopram oxalate 10 mg tablet 10 mg PO QAM 05/23/24 05/23/24 History lisinopril 40 mg tablet 40 mg PO QAM 05/23/24 05/23/24 History metoprolol succinate 100 mg See Rx Instructions .Route .COMPLEX 05/23/24 05/23/24 History tablet,extended release 24 hr omeprazole 40 mg capsule,delayed 40 mg PO QAM 05/23/24 05/23/24 History release rosuvastatin 10 mg tablet 10 mg PO QPM 05/23/24 05/23/24 History Allergies Allergy/AdvReac Type Severity Reaction Status Date / Time mold Allergy Mild Congested Verified 09/23/21 15:52 dust Allergy Mild Congested Uncoded 09/23/21 15:52 pets Allergy Mild Congested Uncoded 09/23/21 15:52 Past Med/Surg History Problem List (Updated 05/23/24 @ 03:20 by Nadia Leary PA-C) Pneumomediastinum (Acute) History of dental surgery (Acute) Subcutaneous air (Acute) Subcutaneous emphysema resulting from a procedure (Acute) History of penile implant TGA (transient global amnesia) H/O: HTN (hypertension) (Acute) Transient memory loss (Acute) GERD (gastroesophageal reflux disease) (Acute) Environmental allergies BPH (benign prostatic hyperplasia) Essential hypertension Medical History BPH (benign prostatic hyperplasia) Depression Environmental allergies Essential hypertension GERD (gastroesophageal reflux disease) Prostate CA Restless leg syndrome Surgical History H/O vasectomy History of hernia surgery History of total left knee replacement Hx of tonsillectomy Family History Father , age 62 Heart disease Mother , ~70 y/o Heart disease Stroke Social History Smoking Status: Never smoker Second Hand Exposure: No; Do You Dip or Chew Tobacco: No; Hx Alcohol Use: Yes Alcohol type: beer Hx Substance Use: No Preferred Language: Polish Communication Ability: Effective Observatory Director Required: No Beliefs That Will Affect Care: None Current Living Situation: Spouse Current Living Situation Comment: lives with fiance Feels Safe at Home: Yes Assistive Devices: None Physical Exam Vital Signs Vital Signs - 24 hr 05/22/24 21:48 05/22/24 23:46 05/22/24 23:48 Temperature 36.5 C Temperature Source Temporal Artery Scan Pulse Rate 118 H 87 86 Pulse Rate from SpO2 Sensor 86 Respiratory Rate 18 12 Blood Pressure 156/85 H Blood Pressure Mean 108 Pulse Oximetry 94 95 Oxygen Delivery Method Room Air Sepsis Recent Fever Within 48 Hours No Sepsis New/Unexplained Change in Mental Status No Sepsis Action Taken by Nursing No Action Required 05/23/24 00:00 05/23/24 00:00 05/23/24 00:24 Temperature Temperature Source Pulse Rate 83 89 Pulse Rate from SpO2 Sensor 84 90 Respiratory Rate 17 17 Blood Pressure 148/98 H Blood Pressure Mean 124 Pulse Oximetry 91 89 L Oxygen Delivery Method Sepsis Recent Fever Within 48 Hours Sepsis New/Unexplained Change in Mental Status Sepsis Action Taken by Nursing 05/23/24 00:30 05/23/24 00:30 05/23/24 00:33 Temperature Temperature Source Pulse Rate 88 Pulse Rate from SpO2 Sensor 89 Respiratory Rate 18 Blood Pressure 169/102 H 169/102 H Blood Pressure Mean 138 138 Pulse Oximetry 90 Oxygen Delivery Method Sepsis Recent Fever Within 48 Hours Sepsis New/Unexplained Change in Mental Status Sepsis Action Taken by Nursing 05/23/24 02:00 Temperature Temperature Source Pulse Rate 95 H Pulse Rate from SpO2 Sensor 91 H Respiratory Rate 19 Blood Pressure Blood Pressure Mean Pulse Oximetry 91 Oxygen Delivery Method Sepsis Recent Fever Within 48 Hours Sepsis New/Unexplained Change in Mental Status Sepsis Action Taken by Nursing VITALS: Vitals are noted on the nurse's note and reviewed by myself. Vital signs stable. GENERAL: White male, in no acute distress, nondiaphoretic, well-developed well- nourished. SKIN: Right periorbital edema and right zygomatic edema and mild erythema, the rest of the skin was without rashes, erythema, edema, or bruising. There is no tenting of the skin. Capillary reflex less than 2 seconds. HEAD: Normocephalic atraumatic. EARS: External auditory canals clear, TMs intact bilaterally EYES: Pupils equal round and reactive to light and accommodation. Conjunctivae without injection, sclerae without icterus. Extraocular movements intact. NOSE: Patent, no discharge. MOUTH: Mucous membranes moist. Pharynx without erythema or exudate. Uvula midline. Airway patent. Tongue does not deviate. Dental exam: Right upper gumline slightly erythematous and edematous and patient had dental work to this region. New implants are in place. No Samuel's NECK: Supple without nuchal rigidity. No lymphadenopathy. No thyromegaly. Cervical spine is nontender. No JVD. Subcutaneous air is palpated on the right anterior neck. HEART: Regular rate and rhythm LUNGS: Clear to auscultation bilaterally without wheezes, rales or rhonchi. No retractions or accessory muscle use. ABDOMEN: Positive bowel sounds x 4. Normal tympanic percussion. Soft, nontender, without masses or organomegaly. Frazier sign negative. No guarding or rebound tenderness. No CVA tenderness MUSCULOSKELETAL: No muscle atrophy, erythema, or edema noted. NEURO: Patient was alert and oriented to person place and time. Normal sensation to light and sharp touch. No focal neurological deficits. Course Administered Medications Discontinued Medications Dexamethasone Sodium Phosphate (DexamethasonePf 10 Mg/Ml Vial) 10 mg IV NOW ONE Stop: 05/22/24 22:35 Last Admin: 05/22/24 22:49 Dose: 10 mg Documented By: SHERICE Diphenhydramine HCl (Diphenhydramine 50 Mg/Ml Vial) 50 mg IV NOW STA Stop: 05/22/24 22:35 Last Admin: 05/22/24 22:48 Dose: 50 mg Documented By: SHERICE Famotidine (Pepcid 20mg Iv Push) 20 mg in 5 mls @ 2.5 mls/min IV NOW STA Stop: 05/22/24 22:35 Last Admin: 05/22/24 22:47 Dose: 2.5 mls/min Documented By: SHERICE Ampicillin Sodium/Sulbactam Sodium (Unasyn) 3,000 mg in 100 mls @ 200 mls/hr IV NOW STA Stop: 05/22/24 23:07 Last Infusion: 05/23/24 00:18 Dose: Infused Documented By: Admin: 05/22/24 23:41 Dose: 200 mls/hr Documented By: DOC Ioversol (Optiray 320 100ml) 90 ml IV ONCE ONE Stop: 05/22/24 23:32 Last Admin: 05/22/24 23:32 Dose: 90 ml Documented By: MICHELLE Morphine Sulfate (Morphine Sulfate 2 Mg/Ml Carp) 2 mg IV NOW STA Stop: 05/22/24 22:35 Last Admin: 05/22/24 22:46 Dose: 2 mg Documented By: SHERICE Ondansetron HCl (Ondansetron Inj 2 Mg/Ml 2 Ml Vial) 4 mg IV NOW STA Stop: 05/22/24 22:35 Last Admin: 05/22/24 22:46 Dose: 4 mg Documented By: SHERICE Medical Decision Making Medical Records Attestation: I reviewed the patient's medical records. Home Medications Current Medication List: was personally reviewed by me Laboratory Data Attestation: I reviewed the patient's lab results. 05/22/24 22:40 05/22/24 22:40 Lab Results 05/22/24 05/22/24 Range/Units 22:40 22:42 WBC 12.68 H (4.8-10.8) K/ul RBC 4.96 (4.70-6.10) M/uL Hgb 13.9 L (14.0-18.0) g/dl POC Hgb 15.3 (14.0-18.0) g/dl Hct 43.2 (42.0-52.0) % POC Hct 45 (42-52) % MCV 87.1 (80.0-100.0) fL MCH 28.0 (25.0-34.0) pg MCHC 32.2 (32.0-36.0) g/dL RDW Std Deviation 45.9 (36.4-46.3) fL RDW Coeff of Carine 14.6 H (11.5-14.5) % Plt Count 295 (130-400) K/uL MPV 10.1 (9.4-12.4) fL Immature Gran % (Auto) 0.3 % Neut % (Auto) 62.1 % Lymph % (Auto) 21.7 % [place] % (Auto) 12.5 % Eos % (Auto) 2.9 % Baso % (Auto) 0.5 % Neut # (Auto) 7.88 H (1.40-6.50) K/uL Lymph # (Auto) 2.75 (1.20-3.40) K/uL [place] # (Auto) 1.58 H (0.11-0.59) K/uL Eos # (Auto) 0.37 (0.00-0.50) K/uL Baso # (Auto) 0.06 (0.00-0.20) K/uL Immature Gran # (Auto) 0.04 (0.01-0.20) K/uL POC Sodium 141 (135-144) mmol/L Sodium 138 (136-145) mmol/L POC Potassium 3.9 (3.3-5.0) mmol/L Potassium 4.0 (3.5-5.1) mmol/L POC Chloride 103 (101-112) mmol/L Chloride 105 (98-107) mmol/L Carbon Dioxide 26 (21-32) mmol/L POC Total CO2 23 L (24-31) mmol/L Anion Gap 7 (3-11) POC Anion Gap 20.0 (16-25) mmol/L POC BUN 18 (7-18) mg/dl BUN 18 (6-23) mg/dl Creatinine 1.30 (0.6-1.4) mg/dl POC Creatinine 1.3 (0.6-1.3) mg/dl Est Cr Clr Drug Dosing 49.9 ml/min eGFR 56.93 BUN/Creatinine Ratio 13.8 (10-20) Glucose 99 (70-99(Fasting)) mg/dl POC Glucose (other) 100 H (70-99) mg/dl Calcium 9.5 (8.6-10.3) mg/dl POC Ioniz Calcium [place] 1.25 (1.12-1.32) mmol/l Total Bilirubin 1.3 H (0.2-1.0) mg/dl AST 19 (13-39) U/L ALT 19 (7-52) U/L Alkaline Phosphatase 51 (34-104) U/L Total Protein 7.6 (6.0-8.3) gm/dl Albumin 4.3 (3.4-5.0) gm/dl Globulin 3.3 (2.5-4.0) gm/dl Albumin/Globulin Ratio 1.3 (0.9-2) Imaging Data Attestation: I personally reviewed and interpreted this imaging study as follows: Radiologist's Impression: Face CT 05/22/24 22:34 CR Exam(s): CT FACIAL With Contrast IV Amt: 90 ml opti 320 EXAM: CT Head and Maxillofacial With Intravenous Contrast CLINICAL HISTORY: Reason for exam: right facial swelling, dental procedure today. TECHNIQUE: Axial computed tomography images of the head/brain and face with intravenous contrast. CTDI is 36.26 mGy and DLP is 719.01 mGy-cm. Automated exposure control was utilized for the study. A dose lowering technique was utilized adhering to the principles of ALARA. CONTRAST: Patient received 90 ml opti 320 of IV contrast COMPARISON: No relevant prior studies available. FINDINGS: Brain: Unremarkable. No hemorrhage. No edema. Normal enhancement. Ventricles: Unremarkable. No ventriculomegaly. Bones/joints: No acute fracture. Soft tissues: Extensive air in the deep cervical soft tissues and face with enlargement of the subcutaneous tissues over the right face and scalp. Sinuses: Chronic right maxillary and ethmoid sinusitis. Right maxillary and ethmoid sinusitis. No acute sinusitis. Mastoid air cells: Unremarkable as visualized. No mastoid effusion. Orbits: Unremarkable as visualized. IMPRESSION: There is a large amount of air in the cervical soft tissues and right face concerning for pneumomediastinum. Recommend CT scan of the chest for further evaluation. Communications: Call Doctor Pneumomediastinum Electronically signed by: Lynn Baker MD 05/23/24 00:41 AM Soft Tissue Neck CT 05/23/24 00:46 Exam(s): CT NECK Without Contrast EXAM: CT Neck Without Intravenous Contrast CLINICAL HISTORY: Reason for exam: dental procedure, abnl face CT, ? air. TECHNIQUE: Axial computed tomography images of the neck without intravenous contrast. CTDI is 19.98 mGy and DLP is 660.96 mGy-cm. Automated exposure control was utilized for the study. A dose lowering technique was utilized adhering to the principles of ALARA. COMPARISON: Maxillofacial CT: 05/22/2024 FINDINGS: Lack of IV contrast limits evaluation of soft tissues/vascular structures. Image quality is also degraded by motion artifact. Extensive subcutaneous facial and deep neck soft tissue emphysema demonstrated bilaterally, affecting more severely the right facial and mandibular soft tissues. There is a small pneumomediastinum present as well. Oropharynx: Unremarkable. No significant tonsillar enlargement. Hypopharynx: Unremarkable. Larynx: Unremarkable. Normal epiglottis. Trachea: Unremarkable. Retropharyngeal space: Unremarkable. Submandibular/parotid glands: Unremarkable. Glands are normal in size. Thyroid: Unremarkable. No enlarged or calcified nodules. Bones/joints: No acute fracture. Multilevel moderately advanced degenerative cervical spondylosis with reversal of normal lordosis. Soft tissues: Unremarkable. Vasculature: No acute findings. Atheromatous calcification of the visualized aortic arch. Lymph nodes: Unremarkable. No lymphadenopathy. Lung apices: Pleural thickening. No consolidation. No pneumothorax. . IMPRESSION: Extensive subcutaneous fascial and deep neck soft tissue emphysema demonstrated affecting more severely the right facial and mandibular soft tissues with edema/swelling. A small pneumoperitoneum is evident. Multilevel moderately advanced degenerative cervical spondylosis. Reversal of normal cervical lordosis. . Electronically signed by: Rosanna Gutiérrez MD, DABR 05/23/24 02:[address] 05/23/24 01:08 Exam(s): CT CHEST Without Contrast EXAM: CT Chest Without Intravenous Contrast CLINICAL HISTORY: Reason for exam: air on face CT from dental procedure. TECHNIQUE: Axial computed tomography images of the chest without intravenous contrast. CTDI is 27.65 mGy and DLP is 1072.72 mGy-cm. Automated exposure control was utilized for the study. A dose lowering technique was utilized adhering to the principles of ALARA. COMPARISON: X-ray chest: 05/23/2024 FINDINGS: Diagnostic sensitivity is reduced by motion artifact. Lungs: Central airways are patent. Bilateral mild bronchial wall thickening. Right lower lobe posteriorly subpleural/parenchymal linear atelectatic changes. No mass. No consolidation. Pleural space: Bilateral mild pleural thickening. No pneumothorax. No significant effusion. Heart: Mild/moderate cardiomegaly. Calcified mitral valve annulus. No significant pericardial effusion. Significant multivessel coronary artery calcifications. Bones/joints: Diffuse osseous demineralization. Posteriorly a ninth and 10th rib nondisplaced fracture. Multilevel advanced degenerative thoracic disc/endplate spondylosis. Soft tissues: A small pneumomediastinum. Vasculature: Atherosclerotic calcified plaques. A 4.7 cm aneurysmal dilatation of the ascending aorta. Lymph nodes: Unremarkable. No enlarged lymph nodes. Other findings: There is significant subcutaneous/deep fascial soft tissue emphysema of the neck and right side upper chest wall is seen. Hepatic cysts. IMPRESSION: A small pneumomediastinum. Otherwise no acute intrathoracic abnormality noted. Likely subacute right ninth and 10th rib nondisplaced fracture. Significant subcutaneous/deep fascial soft tissue emphysema of the neck and right side upper chest wall seen. Osteopenia. Multilevel advanced degenerative thoracic spondylosis. Additional findings as described above. Electronically signed by: Rosanna Gutiérrez MD, NERISSAR 05/23/24 03:[address] 05/23/24 01:08 Exam(s): CT HEAD Without Contrast EXAM: CT Head Without Intravenous Contrast CLINICAL HISTORY: Reason for exam: abnl face CT, air. TECHNIQUE: Axial computed tomography images of the head/brain without intravenous contrast. CTDI is 34.77 mGy and DLP is 624.41 mGy-cm. Automated exposure control was utilized for the study. A dose lowering technique was utilized adhering to the principles of ALARA. COMPARISON: MRI brain: 05/10/2020 FINDINGS: Motion-induced image degradation limits anatomical details. Brain: There is no acute intracranial hemorrhage, mass-effect or midline shift. No abnormal extra-axial fluid collections seen. Moderate cerebral atrophy with widening of the extra-axial spaces and dilatation. No pneumoencephaly. There are significant periventricular/subcortical areas of decreased attenuation, likely from chronic microvascular disease. Bones/joints: Unremarkable. No acute fracture. Sinuses: Unremarkable as visualized. No acute sinusitis. Mastoid air cells: Unremarkable as visualized. No mastoid effusion. Other findings: Predominantly right facial subcutaneous emphysema. IMPRESSION: No acute intracranial abnormality. Chronic involutional and ischemic changes of the brain. . Electronically signed by: Rosanna Gutiérrez MD, DABR 05/23/24 02:51 AM MDM Narrative Prior records/ancillary studies reviewed. Triage Nursing notes reviewed. Additional history obtained from family. The patient's history was concerning for facial pain and swelling after extensive dental procedure today Differential diagnosis: Etiologies such as postsurgical complication, infection, abscess, as well as others were entertained. ER treatment provided: Decadron, Benadryl, Pepcid, Unasyn was ordered On reassessment the patient felt better. Diagnostics interpreted by me: The labs Independently Interpreted by myself revealed mild leukocytosis, stable H&H Imaging studies: Chest x-ray with right side of neck with air present, no pneumothorax or pneumonia per my independent interpretation CTs were reviewed and read by radiology as above Consultation: A consultation was placed with radiologist and states there is a large amount of air in the face and neck and recommends scan of the neck for possible pneumomediastinum. Advanced imaging was ordered. Consultation was placed with oral surgery, Dr. Zazueta and recommends antibiotics and admission. Medicine was consulted and the case is discussed. Patient be admitted to the medical service. This appears to be consistent with extensive subcutaneous air in the face neck and pneumomediastinum from recent dental procedure. Case was discussed with radiology and oral surgery. Oral surgery recommends medical admission with IV antibiotics. Patient had no airway concerns. He is feeling much better to be medicated as above. He is requesting to eat. He is given something to eat and drink. Medicine was consulted case discussed. He will be mated to the medical service. Patient is agreeable.. By the evaluation outlined above emergent etiologies such as peritonsillar abscess, retropharyngeal abscess, otitis, pneumonia, meningitis, urinary tract infection, sepsis, bacteremia, as well as others were deemed relatively unlikely. The pt informed about the findings as listed above. All questions were answered and pleased with the treatment. The chart was completed utilizing [employer] Speech voice recognition software. Grammatical errors, random word insertions, pronoun errors, and incomplete sentences are an occassional consequence of this system due to software limitations, ambient noise, and hardware issues. Any formal questions or concerns about the content, text, or information contained within the body of this dictation should be directly addressed to the physician business development assistant for clarification. Impression & Plan Subcutaneous emphysema resulting from a procedure, Subcutaneous air, History of dental surgery, Pneumomediastinum Discharge Plan Visit Data Chief Complaint: Eye Problems Stated Complaint: DENTAL WORK, EYE INFECTION ED Provider: Carlos Enrique Low ED Midlevel Provider: Nadia Leary Discharge Problem: Subcutaneous emphysema resulting from a procedure, Subcutaneous air, History of dental surgery, Pneumomediastinum Patient Disposition: Admitted As Inpatient Condition: Good Forms Stand Alone Forms: [facility] [employer] Prescriptions Prescriptions: No Action multivitamin Tablet 1 tab PO QAM melatonin 10 mg Tablet 10 mg PO HS loratadine 10 mg Tablet 10 mg PO DAILY PRN (Reason: Allergy Symptoms) tamsulosin 0.4 mg capsule 0.4 mg PO HS Qty: 30 0RF amlodipine 10 mg tablet 10 mg PO QAM lisinopril 40 mg tablet 40 mg PO QAM omeprazole 40 mg capsule,delayed release(DR/EC) 40 mg PO QAM escitalopram oxalate 10 mg tablet 10 mg PO QAM metoprolol succinate 100 mg tablet extended release 24 hr See Rx Instructions .ROUTE .COMPLEX Rx Instructions: TAKE 1 TABLET IN THE MORNING AND AND 1/2 IN THE EVENING rosuvastatin 10 mg tablet 10 mg PO QPM azelastine 137 mcg (0.1 %) spray,non-aerosol 1 spray INTRANASAL [facility] Referrals Referrals: Osito Alfaro MD [Primary Care Provider] - Discharge Problem: Subcutaneous emphysema resulting from a procedure Qualifiers: Encounter type: initial encounter Qualified Code(s): T81.82XA - Emphysema (subcutaneous) resulting from a procedure, initial encounter Subcutaneous air Qualifiers: Encounter type: initial encounter Qualified Code(s): T79.7XXA - Traumatic subcutaneous emphysema, initial encounter
[2024-05-22] MEDS: ONDANSETRON INJ 2 MG/ML 2 ML VIAL IV STA (22:46)
[2024-05-22] MEDS: MoRPHine SULFATE 2 MG/ML CARP IV STA (22:46)
[2024-05-22] MEDS: FAMOTIDINE 20MG IV PUSH 20 MG/5 ML SYR IV STA (22:47)
[2024-05-22] MEDS: diphenhydrAMINE 50 MG/ML VIAL IV STA (22:48)
[2024-05-22] MEDS: dexAMETHasone**PF** 10 MG/ML VIAL IV ONE (22:49)
[2024-05-22 22:54] LABS: iSTAT Creatinine 1.3 mg/dl (0.6-1.3); iSTAT Hemoglobin 15.3 g/dl (14.0-18.0); iSTAT Ionized Calcium 1.25 mmol/l (1.12-1.32); iSTAT Potassium 3.9 mmol/L (3.3-5.0)
[2024-05-22 22:58] LABS: Basophils # (auto) 0.06 K/uL (0.00-0.20); Basophils % (auto) 0.5 %; Eosinophils # (auto) 0.37 K/uL (0.00-0.50); Eosinophils % (auto) 2.9 %; Hematocrit (blood only) 43.2 % (42.0-52.0); Hemoglobin 13.9 g/dl (14.0-18.0); Immature Granulocytes # (auto) 0.04 K/uL (0.01-0.20); Immature Granulocytes % (auto) 0.3 %; Lymphocytes # (auto) 2.75 K/uL (1.20-3.40); Lymphocytes % (auto) 21.7 %; Mean Corpuscular Hgb Conc 32.2 g/dL (32.0-36.0); Mean Corpuscular Volume 87.1 fL (80.0-100.0); Mean Platelet Volume 10.1 fL (9.4-12.4); Monocytes # (auto) 1.58 K/uL (0.11-0.59); Monocytes % (auto) 12.5 %; Neutrophils # (auto) 7.88 K/uL (1.40-6.50); Neutrophils % (auto) 62.1 %; Platelet Count 295 K/uL (130-400); RDW Coefficient of Variation 14.6 % (11.5-14.5); RDW Standard Deviation 45.9 fL (36.4-46.3); Red Blood Count 4.96 M/uL (4.70-6.10); White Blood Count 12.68 K/ul (4.8-10.8)
[2024-05-22 23:19] LABS: Albumin Globulin Ratio 1.3 (0.9-2); Albumin Level 4.3 gm/dl (3.4-5.0); BUN Creatinine Ratio 13.8 (10-20); Bilirubin,Total 1.3 mg/dl (0.2-1.0); Calcium 9.5 mg/dl (8.6-10.3); Creatinine Clr Calc Pharmacy 49.9 ml/min; Globulin 3.3 gm/dl (2.5-4.0); Total Protein 7.6 gm/dl (6.0-8.3)
[2024-05-22] MEDS: OPTIRAY 320 100ml IV ONE (23:32)
[2024-05-22] MEDS: AMPICILLIN/SULBACTAM SOD 3,000 MG/100 ML BAG IV STA (23:41)
--- NOTE | 2024-05-23 00:41 | CT Scan Report ---
Exam(s): CT FACIAL With Contrast IV Amt: 90 ml opti 320 EXAM: CT Head and Maxillofacial With Intravenous Contrast CLINICAL HISTORY: Reason for exam: right facial swelling, dental procedure today. TECHNIQUE: Axial computed tomography images of the head/brain and face with intravenous contrast. CTDI is 36.26 mGy and DLP is 719.01 mGy-cm. Automated exposure control was utilized for the study. A dose lowering technique was utilized adhering to the principles of ALARA. CONTRAST: Patient received 90 ml opti 320 of IV contrast COMPARISON: No relevant prior studies available. FINDINGS: Brain: Unremarkable. No hemorrhage. No edema. Normal enhancement. Ventricles: Unremarkable. No ventriculomegaly. Bones/joints: No acute fracture. Soft tissues: Extensive air in the deep cervical soft tissues and face with enlargement of the subcutaneous tissues over the right face and scalp. Sinuses: Chronic right maxillary and ethmoid sinusitis. Right maxillary and ethmoid sinusitis. No acute sinusitis. Mastoid air cells: Unremarkable as visualized. No mastoid effusion. Orbits: Unremarkable as visualized. IMPRESSION: There is a large amount of air in the cervical soft tissues and right face concerning for pneumomediastinum. Recommend CT scan of the chest for further evaluation. Communications: Call Doctor Pneumomediastinum Electronically signed by: Lynn Baker MD 05/23/24 00:41 AM
--- NOTE | 2024-05-23 02:46 | CT Scan Report ---
Exam(s): CT NECK Without Contrast EXAM: CT Neck Without Intravenous Contrast CLINICAL HISTORY: Reason for exam: dental procedure, abnl face CT, ? air. TECHNIQUE: Axial computed tomography images of the neck without intravenous contrast. CTDI is 19.98 mGy and DLP is 660.96 mGy-cm. Automated exposure control was utilized for the study. A dose lowering technique was utilized adhering to the principles of ALARA. COMPARISON: Maxillofacial CT: 05/22/2024 FINDINGS: Lack of IV contrast limits evaluation of soft tissues/vascular structures. Image quality is also degraded by motion artifact. Extensive subcutaneous facial and deep neck soft tissue emphysema demonstrated bilaterally, affecting more severely the right facial and mandibular soft tissues. There is a small pneumomediastinum present as well. Oropharynx: Unremarkable. No significant tonsillar enlargement. Hypopharynx: Unremarkable. Larynx: Unremarkable. Normal epiglottis. Trachea: Unremarkable. Retropharyngeal space: Unremarkable. Submandibular/parotid glands: Unremarkable. Glands are normal in size. Thyroid: Unremarkable. No enlarged or calcified nodules. Bones/joints: No acute fracture. Multilevel moderately advanced degenerative cervical spondylosis with reversal of normal lordosis. Soft tissues: Unremarkable. Vasculature: No acute findings. Atheromatous calcification of the visualized aortic arch. Lymph nodes: Unremarkable. No lymphadenopathy. Lung apices: Pleural thickening. No consolidation. No pneumothorax. . IMPRESSION: Extensive subcutaneous fascial and deep neck soft tissue emphysema demonstrated affecting more severely the right facial and mandibular soft tissues with edema/swelling. A small pneumoperitoneum is evident. Multilevel moderately advanced degenerative cervical spondylosis. Reversal of normal cervical lordosis. . Electronically signed by: Rosanna Gutiérrez MD, GAVIN 05/23/24 02:45 AM
--- NOTE | 2024-05-23 02:53 | CT Scan Report ---
Exam(s): CT HEAD Without Contrast EXAM: CT Head Without Intravenous Contrast CLINICAL HISTORY: Reason for exam: abnl face CT, air. TECHNIQUE: Axial computed tomography images of the head/brain without intravenous contrast. CTDI is 34.77 mGy and DLP is 624.41 mGy-cm. Automated exposure control was utilized for the study. A dose lowering technique was utilized adhering to the principles of ALARA. COMPARISON: MRI brain: 05/10/2020 FINDINGS: Motion-induced image degradation limits anatomical details. Brain: There is no acute intracranial hemorrhage, mass-effect or midline shift. No abnormal extra-axial fluid collections seen. Moderate cerebral atrophy with widening of the extra-axial spaces and dilatation. No pneumoencephaly. There are significant periventricular/subcortical areas of decreased attenuation, likely from chronic microvascular disease. Bones/joints: Unremarkable. No acute fracture. Sinuses: Unremarkable as visualized. No acute sinusitis. Mastoid air cells: Unremarkable as visualized. No mastoid effusion. Other findings: Predominantly right facial subcutaneous emphysema. IMPRESSION: No acute intracranial abnormality. Chronic involutional and ischemic changes of the brain. . Electronically signed by: Rosanna Gutiérrez MD, DABR 05/23/24 02:51 AM
--- NOTE | 2024-05-23 03:08 | CT Scan Report ---
Exam(s): CT CHEST Without Contrast EXAM: CT Chest Without Intravenous Contrast CLINICAL HISTORY: Reason for exam: air on face CT from dental procedure. TECHNIQUE: Axial computed tomography images of the chest without intravenous contrast. CTDI is 27.65 mGy and DLP is 1072.72 mGy-cm. Automated exposure control was utilized for the study. A dose lowering technique was utilized adhering to the principles of ALARA. COMPARISON: X-ray chest: 05/23/2024 FINDINGS: Diagnostic sensitivity is reduced by motion artifact. Lungs: Central airways are patent. Bilateral mild bronchial wall thickening. Right lower lobe posteriorly subpleural/parenchymal linear atelectatic changes. No mass. No consolidation. Pleural space: Bilateral mild pleural thickening. No pneumothorax. No significant effusion. Heart: Mild/moderate cardiomegaly. Calcified mitral valve annulus. No significant pericardial effusion. Significant multivessel coronary artery calcifications. Bones/joints: Diffuse osseous demineralization. Posteriorly a ninth and 10th rib nondisplaced fracture. Multilevel advanced degenerative thoracic disc/endplate spondylosis. Soft tissues: A small pneumomediastinum. Vasculature: Atherosclerotic calcified plaques. A 4.7 cm aneurysmal dilatation of the ascending aorta. Lymph nodes: Unremarkable. No enlarged lymph nodes. Other findings: There is significant subcutaneous/deep fascial soft tissue emphysema of the neck and right side upper chest wall is seen. Hepatic cysts. IMPRESSION: A small pneumomediastinum. Otherwise no acute intrathoracic abnormality noted. Likely subacute right ninth and 10th rib nondisplaced fracture. Significant subcutaneous/deep fascial soft tissue emphysema of the neck and right side upper chest wall seen. Osteopenia. Multilevel advanced degenerative thoracic spondylosis. Additional findings as described above. Electronically signed by: Rosanna Gutiérrez MD, GAVIN 05/23/24 03:07 AM
[2024-05-23] MEDS: METOPROLOL TARTRATE 1 MG/ML VIAL IV STA (03:45)
--- NOTE | 2024-05-23 03:56 | History & Physical Report ---
Date of Service May 23, 2024 Assessment & Plan (1) Severe sepsis: Plan: SIRS plus lactic acidosis Secondary to odontogenic infection Small pneumomediastinum as per chest CT report possibly from deep neck space spread of odontogenic infection, patient without chest pain or SOB symptoms Right-sided rib fractures from fall from horse last year as per patient account hypertension, elevated secondary discomfort hx PVD (ascending aorta enlargement as per records)/TIA hyperlipidemia, on statin Rx prostate cancer radiation Rx/hormonal Rx DM 2 diet-controlled, well-controlled as of recent hemoglobin A1c of 6.7 this month chronic anemia, hemoglobin at baseline PCU given elevated BP and heart rate CS, Unasyn Monitor lactic acid response to IVF OMFS consult Re: Odontogenic infection (ED provider already in touch with Dr. Zazueta.) N.p.o. anticipation of procedure. Basal bolus insulin adjusted for n.p.o. status, ISS BG goal 1 10-1 40 DVT prophylaxis. SCDs re: possible procedure Full code Text document was generated using [employer] voice recognition software. It may contain grammatical or spelling errors. Kindly contact undersigned for clarification of any documentation item in question. History of Present Illness Chief Complaint: Right face swelling Primary Care Provider: Osito Alfaro MD History obtained from patient and records. Medical history significant for hypertension, PVD, TIA, hyperlipidemia, prostate cancer radiation Rx/hormonal Rx, BPH, overactive bladder as per records, DM 2 diet-controlled, chronic anemia (baseline hemoglobin of 13). Last confinement May 2022 for sepsis secondary to postop penile prosthetic infection/abscess. Patient had dental implant procedure on the right upper jaw yesterday at [place] [facility] office. Procedure took a little longer than expected as per patient. Patient woke up last night with blurred vision on the right. No immediate pain or headache symptoms. Patient shocked by right facial swelling upon looking at the mirror. Progressive right sided pain and swelling overnight. Patient denies chest pain, SOB. Unasyn and Decadron administered at the ER. Highest SBP of 170s documented at the ER. 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 Allergies Allergy/AdvReac Type Severity Reaction Status Date / Time mold Allergy Mild Congested Verified 09/23/21 15:52 Home Medications Medication Instructions Recorded Confirmed Type loratadine 10 mg tablet 10 mg PO DAILY PRN Allergy Symptoms 09/23/21 05/23/24 History melatonin 10 mg tablet 10 mg PO HS 09/23/21 05/23/24 History multivitamin 1 tab PO QAM 09/23/21 05/23/24 History tamsulosin 0.4 mg capsule 0.4 mg PO HS #30 caps 05/12/22 05/23/24 Rx amlodipine 10 mg tablet 10 mg PO QAM 05/23/24 05/23/24 History azelastine 137 mcg (0.1 %) nasal 1 spray intranasal AMHS 05/23/24 05/23/24 History spray escitalopram oxalate 10 mg tablet 10 mg PO QAM 05/23/24 05/23/24 History lisinopril 40 mg tablet 40 mg PO QAM 05/23/24 05/23/24 History metoprolol succinate 100 mg See Rx Instructions .Route .COMPLEX 05/23/24 05/23/24 History tablet,extended release 24 hr omeprazole 40 mg capsule,delayed 40 mg PO QAM 05/23/24 05/23/24 History release rosuvastatin 10 mg tablet 10 mg PO QPM 05/23/24 05/23/24 History Past Med/Surg History Problem List (Updated 05/23/24 @ 07:15 by Wesley Morel MD) Severe sepsis Pneumomediastinum (Acute) History of dental surgery (Acute) Subcutaneous air (Acute) Subcutaneous emphysema resulting from a procedure (Acute) History of penile implant TGA (transient global amnesia) H/O: HTN (hypertension) (Acute) Transient memory loss (Acute) GERD (gastroesophageal reflux disease) (Acute) Environmental allergies BPH (benign prostatic hyperplasia) Essential hypertension Medical History BPH (benign prostatic hyperplasia) Depression Environmental allergies Essential hypertension GERD (gastroesophageal reflux disease) Prostate CA Restless leg syndrome Surgical History H/O vasectomy History of hernia surgery History of total left knee replacement Hx of tonsillectomy Family History Father , age 62 Heart disease Mother , ~70 y/o Heart disease Stroke Social History Smoking Status: Never smoker Second Hand Exposure: No; Do You Dip or Chew Tobacco: No; Hx Alcohol Use: Yes Alcohol type: beer Hx Substance Use: No Preferred Language: Latvian Communication Ability: Effective Refrigeration Technician Required: No Beliefs That Will Affect Care: None Current Living Situation: Spouse Current Living Situation Comment: lives with fiance Feels Safe at Home: Yes Assistive Devices: None Review of Systems Review of Systems: As per HPI, all other systems reviewed and negative Physical Exam Physical Exam: GENERAL: Comfortable, pleasant, no respiratory distress, no stridor SKIN: Pallor, warm HEENT: Right facial swelling, partial alopecia, pale palpebral conjunctivae, no ptosis, no trismus, moist buccal mucosa, right maxillary arch induration NECK : Supple, no tenderness CHEST : CTA, no tenderness HEART : Tachycardic, no obvious murmurs ABDOMEN: Some distention, nontender EXTREMITIES : No LE swelling/tenderness, no other conspicuous deformities noted NEUROLOGIC : Coherent, no facial asymmetry, no other gross focality Results & Data Results & Data Vital Signs (Past 12 Hours) Vital Signs Temp Pulse Resp BP Pulse Ox O2 Del Method 05/23/24 03:45 133 H 179/98 H 05/23/24 02:00 95 H 19 91 05/23/24 00:33 88 18 90 05/23/24 00:30 169/102 H 05/23/24 00:30 169/102 H 05/23/24 00:24 89 17 89 L 05/23/24 00:00 148/98 H 05/23/24 00:00 83 17 91 05/22/24 23:48 86 12 95 05/22/24 23:46 87 05/22/24 21:48 36.5 C 118 H 18 156/85 H 94 Room Air Laboratory Results Laboratory Results WBC 12.68 K/ul (4.8-10.8) H 05/22/24 22:40 RBC 4.96 M/uL (4.70-6.10) 05/22/24 22:40 Hgb 13.9 g/dl (14.0-18.0) L 05/22/24 22:40 POC Hgb 15.3 g/dl (14.0-18.0) 05/22/24 22:42 Hct 43.2 % (42.0-52.0) 05/22/24 22:40 POC Hct 45 % (42-52) 05/22/24 22:42 MCV 87.1 fL (80.0-100.0) 05/22/24 22:40 MCH 28.0 pg (25.0-34.0) 05/22/24 22:40 MCHC 32.2 g/dL (32.0-36.0) 05/22/24 22:40 RDW Std Deviation 45.9 fL (36.4-46.3) 05/22/24:40 RDW Coeff of Carine 14.6 % (11.5-14.5) H 05/22/24 22:40 Plt Count 295 K/uL (130-400) 05/22/24 22:40 MPV 10.1 fL (9.4-12.4) 05/22/24 22:40 Immature Gran % (Auto) 0.3 % 05/22/24 22:40 Neut % (Auto) 62.1 % 05/22/24 22:40 Lymph % (Auto) 21.7 % 05/22/24 22:40 Anson % (Auto) 12.5 % 05/22/24 22:40 Eos % (Auto) 2.9 % 05/22/24 22:40 Baso % (Auto) 0.5 % 05/22/24 22:40 Neut # (Auto) 7.88 K/uL (1.40-6.50) H 05/22/24 22:40 Lymph # (Auto) 2.75 K/uL (1.20-3.40) 05/22/24 22:40 Anson # (Auto) 1.58 K/uL (0.11-0.59) H 05/22/24 22:40 Eos # (Auto) 0.37 K/uL (0.00-0.50) 05/22/24 22:40 Baso # (Auto) 0.06 K/uL (0.00-0.20) 05/22/24 22:40 Immature Gran # (Auto) 0.04 K/uL (0.01-0.20) 05/22/24 22:40 POC Sodium 141 mmol/L (135-144) 05/22/24 22:42 Sodium 138 mmol/L (136-145) 05/22/24 22:40 POC Potassium 3.9 mmol/L (3.3-5.0) 05/22/24 22:42 Potassium 4.0 mmol/L (3.5-5.1) 05/22/24 22:40 POC Chloride 103 mmol/L (101-112) 05/22/24 22:42 Chloride 105 mmol/L (98-107) 05/22/24 22:40 Carbon Dioxide 26 mmol/L (21-32) 05/22/24 22:40 POC Total CO2 23 mmol/L (24-31) L 05/22/24 22:42 Anion Gap 7 (3-11) 05/22/24 22:40 POC Anion Gap 20.0 mmol/L (16-25) 05/22/24 22:42 POC BUN 18 mg/dl (7-18) 05/22/24 22:42 BUN 18 mg/dl (6-23) 05/22/24 22:40 Creatinine 1.30 mg/dl (0.6-1.4) 05/22/24 22:40 POC Creatinine 1.3 mg/dl (0.6-1.3) 05/22/24 22:42 Est Cr Clr Drug Dosing 49.9 ml/min 05/22/24 22:40 eGFR 56.93 05/22/24 22:40 BUN/Creatinine Ratio 13.8 (10-20) 05/22/24 22:40 Glucose 99 mg/dl (70-99(Fasting)) 05/22/24 22:40 POC Glucose (other) 100 mg/dl (70-99) H 05/22/24 22:42 Calcium 9.5 mg/dl (8.6-10.3) 05/22/24 22:40 POC Ioniz Calcium Vernon 1.25 mmol/l (1.12-1.32) 05/22/24 22:42 Total Bilirubin 1.3 mg/dl (0.2-1.0) H 05/22/24 22:40 AST 19 U/L (13-39) 05/22/24 22:40 ALT 19 U/L (7-52) 05/22/24 22:40 Alkaline Phosphatase 51 U/L (34-104) 05/22/24 22:40 Total Protein 7.6 gm/dl (6.0-8.3) 05/22/24 22:40 Albumin 4.3 gm/dl (3.4-5.0) 05/22/24 22:40 Globulin 3.3 gm/dl (2.5-4.0) 05/22/24 22:40 Albumin/Globulin Ratio 1.3 (0.9-2) 05/22/24 22:[address] 05/22/24 22:34 CR Exam(s): CT FACIAL With Contrast IV Amt: 90 ml opti 320 EXAM: CT Head and Maxillofacial With Intravenous Contrast CLINICAL HISTORY: Reason for exam: right facial swelling, dental procedure today. TECHNIQUE: Axial computed tomography images of the head/brain and face with intravenous contrast. CTDI is 36.26 mGy and DLP is 719.01 mGy-cm. Automated exposure control was utilized for the study. A dose lowering technique was utilized adhering to the principles of ALARA. CONTRAST: Patient received 90 ml opti 320 of IV contrast COMPARISON: No relevant prior studies available. FINDINGS: Brain: Unremarkable. No hemorrhage. No edema. Normal enhancement. Ventricles: Unremarkable. No ventriculomegaly. Bones/joints: No acute fracture. Soft tissues: Extensive air in the deep cervical soft tissues and face with enlargement of the subcutaneous tissues over the right face and scalp. Sinuses: Chronic right maxillary and ethmoid sinusitis. Right maxillary and ethmoid sinusitis. No acute sinusitis. Mastoid air cells: Unremarkable as visualized. No mastoid effusion. Orbits: Unremarkable as visualized. IMPRESSION: There is a large amount of air in the cervical soft tissues and right face concerning for pneumomediastinum. Recommend CT scan of the chest for further evaluation. Communications: Call Doctor Pneumomediastinum Electronically signed by: Lynn Baker MD 05/23/24 00:41 AM Soft Tissue Neck CT 05/23/24 00:46 Exam(s): CT NECK Without Contrast EXAM: CT Neck Without Intravenous Contrast CLINICAL HISTORY: Reason for exam: dental procedure, abnl face CT, ? air. TECHNIQUE: Axial computed tomography images of the neck without intravenous contrast. CTDI is 19.98 mGy and DLP is 660.96 mGy-cm. Automated exposure control was utilized for the study. A dose lowering technique was utilized adhering to the principles of ALARA. COMPARISON: Maxillofacial CT: 05/22/2024 FINDINGS: Lack of IV contrast limits evaluation of soft tissues/vascular structures. Image quality is also degraded by motion artifact. Extensive subcutaneous facial and deep neck soft tissue emphysema demonstrated bilaterally, affecting more severely the right facial and mandibular soft tissues. There is a small pneumomediastinum present as well. Oropharynx: Unremarkable. No significant tonsillar enlargement. Hypopharynx: Unremarkable. Larynx: Unremarkable. Normal epiglottis. Trachea: Unremarkable. Retropharyngeal space: Unremarkable. Submandibular/parotid glands: Unremarkable. Glands are normal in size. Thyroid: Unremarkable. No enlarged or calcified nodules. Bones/joints: No acute fracture. Multilevel moderately advanced degenerative cervical spondylosis with reversal of normal lordosis. Soft tissues: Unremarkable. Vasculature: No acute findings. Atheromatous calcification of the visualized aortic arch. Lymph nodes: Unremarkable. No lymphadenopathy. Lung apices: Pleural thickening. No consolidation. No pneumothorax. . IMPRESSION: Extensive subcutaneous fascial and deep neck soft tissue emphysema demonstrated affecting more severely the right facial and mandibular soft tissues with edema/swelling. A small pneumoperitoneum is evident. Multilevel moderately advanced degenerative cervical spondylosis. Reversal of normal cervical lordosis. . Electronically signed by: Rosanna Gutiérrez MD, DABR 05/23/24 02:[address] 05/23/24 01:08 Exam(s): CT CHEST Without Contrast EXAM: CT Chest Without Intravenous Contrast CLINICAL HISTORY: Reason for exam: air on face CT from dental procedure. TECHNIQUE: Axial computed tomography images of the chest without intravenous contrast. CTDI is 27.65 mGy and DLP is 1072.72 mGy-cm. Automated exposure control was utilized for the study. A dose lowering technique was utilized adhering to the principles of ALARA. COMPARISON: X-ray chest: 05/23/2024 FINDINGS: Diagnostic sensitivity is reduced by motion artifact. Lungs: Central airways are patent. Bilateral mild bronchial wall thickening. Right lower lobe posteriorly subpleural/parenchymal linear atelectatic changes. No mass. No consolidation. Pleural space: Bilateral mild pleural thickening. No pneumothorax. No significant effusion. Heart: Mild/moderate cardiomegaly. Calcified mitral valve annulus. No significant pericardial effusion. Significant multivessel coronary artery calcifications. Bones/joints: Diffuse osseous demineralization. Posteriorly a ninth and 10th rib nondisplaced fracture. Multilevel advanced degenerative thoracic disc/endplate spondylosis. Soft tissues: A small pneumomediastinum. Vasculature: Atherosclerotic calcified plaques. A 4.7 cm aneurysmal dilatation of the ascending aorta. Lymph nodes: Unremarkable. No enlarged lymph nodes. Other findings: There is significant subcutaneous/deep fascial soft tissue emphysema of the neck and right side upper chest wall is seen. Hepatic cysts. IMPRESSION: A small pneumomediastinum. Otherwise no acute intrathoracic abnormality noted. Likely subacute right ninth and 10th rib nondisplaced fracture. Significant subcutaneous/deep fascial soft tissue emphysema of the neck and right side upper chest wall seen. Osteopenia. Multilevel advanced degenerative thoracic spondylosis. Additional findings as described above. Electronically signed by: Rosanna Gutiérrez MD, GAVIN 05/23/24 03:[address] 05/23/24 01:08 Exam(s): CT HEAD Without Contrast EXAM: CT Head Without Intravenous Contrast CLINICAL HISTORY: Reason for exam: abnl face CT, air. TECHNIQUE: Axial computed tomography images of the head/brain without intravenous contrast. CTDI is 34.77 mGy and DLP is 624.41 mGy-cm. Automated exposure control was utilized for the study. A dose lowering technique was utilized adhering to the principles of ALARA. COMPARISON: MRI brain: 05/10/2020 FINDINGS: Motion-induced image degradation limits anatomical details. Brain: There is no acute intracranial hemorrhage, mass-effect or midline shift. No abnormal extra-axial fluid collections seen. Moderate cerebral atrophy with widening of the extra-axial spaces and dilatation. No pneumoencephaly. There are significant periventricular/subcortical areas of decreased attenuation, likely from chronic microvascular disease. Bones/joints: Unremarkable. No acute fracture. Sinuses: Unremarkable as visualized. No acute sinusitis. Mastoid air cells: Unremarkable as visualized. No mastoid effusion. Other findings: Predominantly right facial subcutaneous emphysema. IMPRESSION: No acute intracranial abnormality. Chronic involutional and ischemic changes of the brain. . Electronically signed by: Rosanna Gutiérrez MD, GAVIN 05/23/24 02:51 AM Diagnostic Findings EKG as per my interpretation :
[2024-05-23 04:28] LABS: Hematocrit (blood only) 43.7 % (42.0-52.0); Hemoglobin 13.9 g/dl (14.0-18.0); Mean Corpuscular Hgb Conc 31.8 g/dL (32.0-36.0); Mean Corpuscular Volume 88.1 fL (80.0-100.0); Mean Platelet Volume 10.9 fL (9.4-12.4); Platelet Count 313 K/uL (130-400); RDW Coefficient of Variation 14.6 % (11.5-14.5); RDW Standard Deviation 46.8 fL (36.4-46.3); Red Blood Count 4.96 M/uL (4.70-6.10); White Blood Count 16.84 K/ul (4.8-10.8)
[2024-05-23] MEDS ORDERED: oxyCODONE HCL IR 5 MG TAB (IMMEDIATE RELEASE) PO PRN (04:32)
[2024-05-23] MEDS ORDERED: PROMETHAZINE 6.25 MG/50.25 ML BAG IV PRN (04:32)
[2024-05-23] MEDS ORDERED: MoRPHine SULFATE 2 MG/ML CARP IV PRN (04:32)
[2024-05-23] MEDS ORDERED: LORATADINE 10 MG TAB PO PRN (04:35)
[2024-05-23] MEDS: SODIUM CHLORIDE 0.9% 1,000 ML IV STA (04:40)
[2024-05-23 04:42] LABS: BUN Creatinine Ratio 12.9 (10-20); Calcium 9.4 mg/dl (8.6-10.3); Creatinine Clr Calc Pharmacy 49.2 ml/min; Potassium 4.5 mmol/L (3.5-5.1)
[2024-05-23 04:46] LABS: Basophils # (auto) 0.03 K/uL (0.00-0.20); Basophils % (auto) 0.2 %; Immature Granulocytes # (auto) 0.06 K/uL (0.01-0.20); Immature Granulocytes % (auto) 0.4 %; Lymphocytes # (auto) 0.98 K/uL (1.20-3.40); Lymphocytes % (auto) 5.8 %; Monocytes % (auto) 0.6 %; Neutrophils # (auto) 15.67 K/uL (1.40-6.50)
[2024-05-23 04:57] LABS: Thyroid Stimulating Hormone 1.251 uIu/ml (0.300-4.500)
[2024-05-23] MEDS: LACTATED RINGER'S 1,000 ML IV ONE (06:08)
[2024-05-23] MEDS ORDERED: DEXTROSE 50% 50 ML SYRINGE IV PRN ×2 (06:20→06:30)
[2024-05-23] MEDS ORDERED: GLUCAGON FOR INJ 1 MG VIAL SQ PRN ×2 (06:20→06:30)
[2024-05-23] MEDS ORDERED: GLUCOSE 40% GEL 15 GM TUBE PO PRN ×2 (06:20→06:30)
[2024-05-23] MEDS ORDERED: CARBOHYDRATES FOR HYPOGLYCEMIA PO PRN ×2 (06:20→06:30)
[2024-05-23] MEDS ORDERED: GLUCOSE 10 TAB/TUBE PO PRN ×2 (06:20→06:30)
[2024-05-23] MEDS: AMPICILLIN/SULBACTAM SOD 3,000 MG/100 ML BAG IV STA (06:38)
[2024-05-23] MEDS: LANTUS PER UNIT CHARGE SQ STA (07:02)
[2024-05-23] MEDS: INSULIN ASPART PER UNIT CHARGE SC SCH ×2 (07:03→21:15)
--- NOTE | 2024-05-23 07:04 | Communication Note ---
Date of Service: May 23, 2024 Lactic acid increased to 4.6 from 2.8. Broaden antibiotic coverage from Unasyn to to doxycycline and Zosyn Recheck lactic acid response to ongoing IVF bolus
[2024-05-23] MEDS: PIPERACILLIN/TAZOBACTAM 4.5 GM/100 ML BAG IV ONE (07:46)
--- NOTE | 2024-05-23 07:54 | Hospitalist Progress Note ---
Date of Service May 23, 2024 Assessment & Plan (1) Severe sepsis: Plan Pt is a 74yoM with PMHx significant for hypertension, PVD, TIA, hyperlipidemia, prostate cancer radiation Rx/hormonal Rx, BPH, overactive bladder as per records, DM 2 diet-controlled, chronic anemia (baseline hemoglobin of 13) presenting with concern for odontogenic infection after recent procedure. Severe Sepsis SIRS plus lactic acidosis Pneumomediastinum Odontogenic Infection Patient presenting with possible odontogenic infection after recent procedure Chronic leukocytosis with tachycardia Face CT noting "large amount of air in the cervical soft tissues and right face concerning for pneumomediastinum." CT soft tissue neck noting "Extensive subcutaneous fascial and deep neck soft tissue emphysema demonstrated affecting more severely the right facial and mandibular soft tissues with edema/swelling. A small pneumoperitoneum is evident." CT chest noting "A small pneumomediastinum. Otherwise no acute intrathoracic abnormality noted. Likely subacute right ninth and 10th rib nondisplaced fracture. Significant subcutaneous/deep fascial soft tissue emphysema of the neck and right side upper chest wall seen." Small pneumomediastinum as per chest CT report possibly from deep neck space spread of odontogenic infection, patient without chest pain or SOB symptoms Right-sided rib fractures from fall from horse last year as per patient account lactate elevated at 4.6 and downtrending after fluid resuscitation Blood Cx x2 sets pending Oral maxillofacial surgeon consulted, appreciate recs Continue with IV Zosyn Continue to monitor -Patient has been stable, even walking the halls and threatening to leave AGAINST MEDICAL ADVICE due to a vacation tomorrow. DMII Basal bolus insulin adjusted for n.p.o. status, ISS BG goal 1 10-1 40 Continue to monitor Diet: currently NPO status DVT prophylaxis. SCDs re: possible procedure Dispo: Home once medically stable Admission and Anticipated Discharge Date Admission Date: May 23, 2024 Subjective patient was seen initially while still down in the emergency room. Stated that he had a dental procedure done the day prior before and took a nap and woke up with right-sided facial swelling. Presented to be evaluated further. Denied any fevers or chills Later called to bedside as patient anxious for discharge for possible AMA discharge. Discussion with patient that he is currently septic requiring IV antibiotics for treatment likely for 24 to 48 hours pending the culture results. Patient notes that he is supposed to go on vacation tomorrow also has family members coming in and indicating that he does not want to stay in the hospital. Discussion of risks of leaving such as progressive infection, spread to meningitis, septic shock, loss of consciousness and eventual . form was left with nursing staff after discussion with patient. Patient indicating that he will stay at this time and asking for Tylenol. States he does not want to be "drugged up", declining Ativan to help with anxiety at this time. Review of Systems Review of Systems: All systems reviewed & are unremarkable except as noted in Subjective Physical Exam Physical Exam: General: Alert, oriented. Skin: right sided facial swelling and erythema Psych: Anxious mood and affect HEENT: right sided facial swelling and erythema CV: RRR Resp: Breath sounds clear bilaterally, no increased effort of breathing Abdomen: Soft, nontender Extremities: No edema in lower extremities bilaterally. Results & Data Results & Data Vital Signs (Past 12 Hours) Vital Signs Temp Pulse Resp BP Pulse Ox O2 Del Method 05/23/24 07:26 94 H 05/23/24 07:21 101 H 20 125/80 94 Room Air 05/23/24 06:45 99 H 18 139/81 94 05/23/24 06:31 110/59 L 05/23/24 06:12 89 L 05/23/24 05:54 91 05/23/24 05:03 97 H 20 05/23/24 05:00 116/74 05/23/24 05:00 116/74 05/23/24 04:45 101 H 22 05/23/24 04:39 100 H 18 05/23/24 04:30 127/95 05/23/24 04:30 127/95 05/23/24 04:21 114 H 05/23/24 04:18 124 H 112/88 05/23/24 04:16 112/88 05/23/24 04:16 112/88 05/23/24 04:01 119/92 05/23/24 04:01 119/92 05/23/24 03:48 179/98 H 05/23/24 03:48 179/98 H 05/23/24 03:45 133 H 179/98 H 05/23/24 03:12 94 H 25 H 90 05/23/24 03:00 92 H 17 91 05/23/24 02:33 84 17 89 L 05/23/24 02:00 95 H 19 91 05/23/24 00:33 88 18 90 05/23/24 00:30 169/102 H 05/23/24 00:30 169/102 H 05/23/24 00:24 89 17 89 L 05/23/24 00:00 148/98 H 05/23/24 00:00 83 17 91 05/22/24 23:48 86 12 95 05/22/24 23:46 87 05/22/24 21:48 36.5 C 118 H 18 156/85 H 94 Room Air Diagnostic Findings Face CT 05/22/24 22:34 CR Exam(s): CT FACIAL With Contrast IV Amt: 90 ml opti 320 EXAM: CT Head and Maxillofacial With Intravenous Contrast CLINICAL HISTORY: Reason for exam: right facial swelling, dental procedure today. TECHNIQUE: Axial computed tomography images of the head/brain and face with intravenous contrast. CTDI is 36.26 mGy and DLP is 719.01 mGy-cm. Automated exposure control was utilized for the study. A dose lowering technique was utilized adhering to the principles of ALARA. CONTRAST: Patient received 90 ml opti 320 of IV contrast COMPARISON: No relevant prior studies available. FINDINGS: Brain: Unremarkable. No hemorrhage. No edema. Normal enhancement. Ventricles: Unremarkable. No ventriculomegaly. Bones/joints: No acute fracture. Soft tissues: Extensive air in the deep cervical soft tissues and face with enlargement of the subcutaneous tissues over the right face and scalp. Sinuses: Chronic right maxillary and ethmoid sinusitis. Right maxillary and ethmoid sinusitis. No acute sinusitis. Mastoid air cells: Unremarkable as visualized. No mastoid effusion. Orbits: Unremarkable as visualized. IMPRESSION: There is a large amount of air in the cervical soft tissues and right face concerning for pneumomediastinum. Recommend CT scan of the chest for further evaluation. Communications: Call Doctor Pneumomediastinum Electronically signed by: Lynn Baker MD 05/23/24 00:41 AM Soft Tissue Neck CT 05/23/24 00:46 Exam(s): CT NECK Without Contrast EXAM: CT Neck Without Intravenous Contrast CLINICAL HISTORY: Reason for exam: dental procedure, abnl face CT, ? air. TECHNIQUE: Axial computed tomography images of the neck without intravenous contrast. CTDI is 19.98 mGy and DLP is 660.96 mGy-cm. Automated exposure control was utilized for the study. A dose lowering technique was utilized adhering to the principles of ALARA. COMPARISON: Maxillofacial CT: 05/22/2024 FINDINGS: Lack of IV contrast limits evaluation of soft tissues/vascular structures. Image quality is also degraded by motion artifact. Extensive subcutaneous facial and deep neck soft tissue emphysema demonstrated bilaterally, affecting more severely the right facial and mandibular soft tissues. There is a small pneumomediastinum present as well. Oropharynx: Unremarkable. No significant tonsillar enlargement. Hypopharynx: Unremarkable. Larynx: Unremarkable. Normal epiglottis. Trachea: Unremarkable. Retropharyngeal space: Unremarkable. Submandibular/parotid glands: Unremarkable. Glands are normal in size. Thyroid: Unremarkable. No enlarged or calcified nodules. Bones/joints: No acute fracture. Multilevel moderately advanced degenerative cervical spondylosis with reversal of normal lordosis. Soft tissues: Unremarkable. Vasculature: No acute findings. Atheromatous calcification of the visualized aortic arch. Lymph nodes: Unremarkable. No lymphadenopathy. Lung apices: Pleural thickening. No consolidation. No pneumothorax. . IMPRESSION: Extensive subcutaneous fascial and deep neck soft tissue emphysema demonstrated affecting more severely the right facial and mandibular soft tissues with edema/swelling. A small pneumoperitoneum is evident. Multilevel moderately advanced degenerative cervical spondylosis. Reversal of normal cervical lordosis. . Electronically signed by: Rosanna Gutiérrez MD, DABR 05/23/24 02:45 AM Chest X-Ray 05/23/24 00:48 XR chest 1V portable HISTORY: 74 years-old Male abnl CT acute shortness of breath COMPARISON: CT soft tissue neck 05/23/2024 TECHNIQUE: AP view of the chest FINDINGS: Small amount of upper pneumomediastinum with subcutaneous emphysema of the neck. Mild cardiomegaly. No pneumothorax, pleural effusion, airspace consolidation or pulmonary edema. There is minimal subsegmental bibasilar atelectasis. Healed chronic mid left clavicular fracture deformity. Bones appear grossly intact. IMPRESSION: 1. Cardiomegaly without pulmonary edema. 2. No pneumothorax. 3. Small amount of upper mediastinal pneumomediastinum with subcutaneous emphysema of the neck. Please refer to the same day CT chest and soft tissue neck studies for additional findings. ACT 112: Negative or not required by law. The above report was generated using voice recognition software. It may contain grammatical, syntax or spelling errors. Electronically signed by: Jovanny Nolan M.D. 05/23/2024 8:[address] 05/23/24 01:08 Exam(s): CT CHEST Without Contrast EXAM: CT Chest Without Intravenous Contrast CLINICAL HISTORY: Reason for exam: air on face CT from dental procedure. TECHNIQUE: Axial computed tomography images of the chest without intravenous contrast. CTDI is 27.65 mGy and DLP is 1072.72 mGy-cm. Automated exposure control was utilized for the study. A dose lowering technique was utilized adhering to the principles of ALARA. COMPARISON: X-ray chest: 05/23/2024 FINDINGS: Diagnostic sensitivity is reduced by motion artifact. Lungs: Central airways are patent. Bilateral mild bronchial wall thickening. Right lower lobe posteriorly subpleural/parenchymal linear atelectatic changes. No mass. No consolidation. Pleural space: Bilateral mild pleural thickening. No pneumothorax. No significant effusion. Heart: Mild/moderate cardiomegaly. Calcified mitral valve annulus. No significant pericardial effusion. Significant multivessel coronary artery calcifications. Bones/joints: Diffuse osseous demineralization. Posteriorly a ninth and 10th rib nondisplaced fracture. Multilevel advanced degenerative thoracic disc/endplate spondylosis. Soft tissues: A small pneumomediastinum. Vasculature: Atherosclerotic calcified plaques. A 4.7 cm aneurysmal dilatation of the ascending aorta. Lymph nodes: Unremarkable. No enlarged lymph nodes. Other findings: There is significant subcutaneous/deep fascial soft tissue emphysema of the neck and right side upper chest wall is seen. Hepatic cysts. IMPRESSION: A small pneumomediastinum. Otherwise no acute intrathoracic abnormality noted. Likely subacute right ninth and 10th rib nondisplaced fracture. Significant subcutaneous/deep fascial soft tissue emphysema of the neck and right side upper chest wall seen. Osteopenia. Multilevel advanced degenerative thoracic spondylosis. Additional findings as described above. Electronically signed by: Rosanna Gutiérrez MD, DABR 05/23/24 03:[address] 05/23/24 01:08 Exam(s): CT HEAD Without Contrast EXAM: CT Head Without Intravenous Contrast CLINICAL HISTORY: Reason for exam: abnl face CT, air. TECHNIQUE: Axial computed tomography images of the head/brain without intravenous contrast. CTDI is 34.77 mGy and DLP is 624.41 mGy-cm. Automated exposure control was utilized for the study. A dose lowering technique was utilized adhering to the principles of ALARA. COMPARISON: MRI brain: 05/10/2020 FINDINGS: Motion-induced image degradation limits anatomical details. Brain: There is no acute intracranial hemorrhage, mass-effect or midline shift. No abnormal extra-axial fluid collections seen. Moderate cerebral atrophy with widening of the extra-axial spaces and dilatation. No pneumoencephaly. There are significant periventricular/subcortical areas of decreased attenuation, likely from chronic microvascular disease. Bones/joints: Unremarkable. No acute fracture. Sinuses: Unremarkable as visualized. No acute sinusitis. Mastoid air cells: Unremarkable as visualized. No mastoid effusion. Other findings: Predominantly right facial subcutaneous emphysema. IMPRESSION: No acute intracranial abnormality. Chronic involutional and ischemic changes of the brain. . Electronically signed by: Rosanna Gutiérrez MD, NERISSAR 05/23/24 02:51 AM
--- NOTE | 2024-05-23 08:04 | XRay Report ---
XR chest 1V portable HISTORY: 74 years-old Male abnl CT acute shortness of breath COMPARISON: CT soft tissue neck 05/23/2024 TECHNIQUE: AP view of the chest FINDINGS: Small amount of upper pneumomediastinum with subcutaneous emphysema of the neck. Mild cardiomegaly. N o pneumothorax, pleural effusion, airspace consolidation or pulmonary edema. There is minimal subsegm ental bibasilar atelectasis. Healed chronic mid left clavicular fracture deformity. Bones appear kayden sly intact. IMPRESSION: 1. Cardiomegaly without pulmonary edema. 2. No pneumothorax. 3. Small amount of upper mediastinal pneumomediastinum with subcutaneous emphysema of the neck. Pleas e refer to the same day CT chest and soft tissue neck studies for additional findings. ACT 112: Negative or not required by law. The above report was generated using voice recognition software. It may contain grammatical, syntax o r spelling errors. Electronically signed by: Jovanny Nolan M.D. 05/23/2024 8:02 AM
[2024-05-23] MEDS ORDERED: lisinopril 40 MG TAB PO SCH (09:00)
[2024-05-23] MEDS ORDERED: METOPROLOL SUCC 50MG EXT REL TAB PO SCH (09:00)
[2024-05-23] MEDS ORDERED: amLODIPine BESYLATE 5 MG TAB PO SCH (09:00)
[2024-05-23] MEDS: MULTIVITAMIN TAB PO SCH (09:21)
[2024-05-23] MEDS: DOXYCYCLINE HYCLATE 100 MG in DEXTROSE 5% MINI-B 100 ML IV STA (09:21)
[2024-05-23] MEDS: ESCITALOPRAM OXALATE 10 MG TAB PO SCH (09:21)
[2024-05-23] MEDS: LACTATED RINGER'S 1,000 ML IV SCH (09:21)
[2024-05-23] MEDS: PANTOprazole 40 MG TAB PO SCH (09:22)
[2024-05-23] MEDS: METOPROLOL SUCC 25MG EXT REL TAB PO SCH ×2 (09:22→21:45)
[2024-05-23] MEDS ORDERED: AMPICILLIN/SULBACTAM SOD 3,000 MG/100 ML BAG IV SCH (12:00)
[2024-05-23] MEDS: ACETAMINOPHEN 500 MG TAB PO PRN (13:59)
[2024-05-23] MEDS: PIPERACILLIN/TAZOBACTAM 4.5 GM/100 ML BAG IV SCH (14:03)
[2024-05-23] MEDS: LORazepam 0.5 MG TAB PO PRN (14:25)
--- OUTSIDE RECORDS SUMMARY | 2024-05-23 15:12 | External Medical Summary ---
Author Name Unknown Address Unknown Organization K01:[facility] [place] [address] [place] [address] Laboratory Report Ordering Provider Test Date Status RUSSELL MOHR 05/14/2024 08:25:52 Final Observation Date Value Abnormality Reference (Units ) Status BUN 05/14/2024 08:25:52 16 6-20 (mg/dL) Final Creatinine 05/14/2024 08:25:52 1.3 Above high normal 0.6-1.2 (mg/dL) Final Glomerular filtration rate/1.73 sq M.predicted [Volume Rate/Area] in Serum, Plasma or Blood by Creatinine-based formula (CKD-EPI) 05/14/2024 08:25:52 58 Below low normal >=60 (mL/min) Final eGFR is calculated based on the CKD-EPI 2020 equation. Sodium 05/14/2024 08:25:52 139 135-146 (m mol/L) Final Potassium 05/14/2024 08:25:52 4.6 3.5-5.1 (m mol/L) Final Cl 05/14/2024 08:25:52 104 98-107 (mm ol/L) Final CO2 05/14/2024 08:25:52 27 22-32 (mmo l/L) Final Anion gap 05/14/2024 08:25:52 8 7-15 (mmol /L) Final Glucose 05/14/2024 08:25:52 131 Above high normal 70 -120 (mg/dL) Final Albumin 05/14/2024 08:25:52 4.3 3.8-5.0 (g /dL) Final AST (Aspartate aminotransferase) 05/14/2024 08:25:52 22 10-50 (U/L) Fin al Alk Phos 05/14/2024 08:25:52 57 35-130 (U/ L) Final Bilirubin, Total 05/14/2024 08:25:52 1.0 <=1 .2 (mg/dL) Final Calcium 05/14/2024 08:25:52 9.6 8.4-10.2 ( mg/dL) Final Protein 05/14/2024 08:25:52 6.8 6.0-8.3 (g /dL) Final ALT (Alanine aminotransferase) 05/14/2024 08:25:52 25 10-50 (U/L) Berhane wilson Performing Location [facility] [place] - [facility] [address] [facility] [address]
--- OUTSIDE RECORDS SUMMARY | 2024-05-23 15:12 | External Medical Summary ---
Author Name Unknown Address Unknown Organization K01:[facility]ATORY [facility] - [address] [place] [address] Laboratory Report Ordering Provider Test Date Status RUSSELL MOHR 05/14/2024 08:25:52 Final Observation Date Value Abnormality Reference (Units ) Status Magnesium 05/14/2024 08:25:52 1.8 1.5-2.6 (m g/dL) Final Performing Location [facility] - [address] [place] [address]
--- OUTSIDE RECORDS SUMMARY | 2024-05-23 15:12 | External Medical Summary ---
Author Name Unknown Address Unknown Organization [id number]:LABORATORY [facility] [place] - [address] [place] [address] Laboratory Report Ordering Provider Test Date Status RUSSELL MOHR 05/14/2024 08:25:52 Final Observation Date Value Abnormality Reference (Units ) Status Vitamin B12 05/14/2024 08:25:52 718 [id number] (pg/mL) Final Performing Location [facility]ATORY [facility] - [address] [place] [address]
--- OUTSIDE RECORDS SUMMARY | 2024-05-23 15:12 | External Medical Summary | Summary of Care ---
Author Name Unknown Organization [facility] Address [address] [place] [address] Phone [phone] Care Team Providers Care Airline Radio Operator Name Role Phone Osito Alfaro MD Primary Care Provider [phone] Reason for Visit * Reason Comments Outpatient Testing Encounter Details Date Type Department Care Team (Late st Contact Info) Description 05/14/2024 8:00 AM EDT Laboratory Laboratory, [facility] [address] [place] [address] [place], [facility] [address] [place] [address] Type 2 diabetes mellitus with stage 3a chronic kidney disease, without long-term current use of insulin (HCC); HTN, goal below 140/90; Dyslipidemia, goal LDL below 70; Encounter for long-term (current) use of medications; History of prostate cancer Allergies Active Allergy Reactions Criticality Noted Date Comments Cat Dander 09/01/2016 Warfarin Hives 09/01/2016 Dust Cough 03/16/2009 Mold Cough 03/16/2009 Other Allergy (See Comments) 04/04/2022 Grass - sneezing/sinus Pollen Cough 03/16/2009 Also grass documented as of this encounter (statuses as of 05/14/2024) Medications Medication Sig Dispensed Refills Start Date End Date Status LORATADINE 10 MG PO CAPS Take by mouth at bedtime. Active CENTRUM SILVER PO TABS daily Active Melatonin 10 MG Oral Tablet Take 1 Tablet by mouth at bedtime. 09/23/2021 Active metFORMIN HCl ER 500 MG Oral Tablet Extended Release 24 Hour (Glucophage XR)Indications:DM type 2, goal HbA1c < 7.5% (HCC) Take 2 tabs with breakfast daily. First 2 weeks- take 1 tab daily 180 Tablet 3 10/01/2022 Active Rosuvastatin Calcium 10 MG Oral Tablet (Crestor)Indicatio ns:Dyslipidemia, goal LDL below 70 TAKE 1 TABLET BY MOUTH ONCE DAILY IN THE EVENING 90 Tablet 3 12/25/2023 Active Additional Information Patient taking differently: [id number], Reported on 03/18/2024 Fluticasone Propionate 50 MCG/ACT Nasal Suspension (Flonase)Indicatio ns:Chronic rhinitis Administer 2 Sprays into each nostril in the morning. 16 g 5 01/31/2024 Active Metoprolol Succinate ER 100 MG Oral Tablet Extended Release 24 Hour (toPROL XL)Indications:Ane urysm of ascending aorta without rupture (HCC),HTN, goal below 140/90 1 tablet in the morning 1/2 in the evening 135 Tablet 1 03/04/2024 Active citalopram 5 MG OR TABS Take by mouth at bedtime. Active Potassium Gluconate 595 (99 K) MG Oral Tablet Take by mouth at bedtime. Active Omeprazole 40 MG Oral Capsule Delayed Release (PriLOSEC) Take 1 Capsule by mouth in the morning. 90 Capsule 1 03/29/2024 Active Escitalopram Oxalate 10 MG Oral Tablet (Lexapro)Indicatio ns:Generalized anxiety disorder Take 1 Tablet by mouth in the morning. 90 Tablet 2 03/31/2024 Active amLODIPine Besylate 5 MG Oral Tablet (Norvasc) Take 2 Tablets by mouth in the morning. Once daily. 04/09/2024 Active amLODIPine Besylate 10 MG Oral Tablet (Norvasc)Indicatio ns:HTN, goal below 140/90 Take 1 Tablet by mouth in the morning. 90 Tablet 3 04/30/2024 Active Azelastine HCl 0.1 % Nasal Solution (Astelin)Indicatio ns:Chronic rhinitis Administer 1 [place] into nostril in the morning and 1 [place] before bedtime. 90 mL 3 04/30/2024 Active Lisinopril 40 MG Oral TabletIndications: HTN, goal below 140/90 Take 1 Tablet by mouth in the morning. 90 Tablet 3 04/30/2024 Active documented as of this encounter (statuses as of 05/14/2024) Active Problems Problem Noted Date Diagnosed Date Aneurysm of aorta 04/30/2024 History of prostate cancer 04/17/2024 Overview: 05/23/23 Urology note "He has a history of prostate cancer post ERBT 08/2020 with hormone therapy." Type 2 diabetes mellitus wit h stage 3a chronic kidney disease, without long-term current use of insulin 02/21/2024 Dyslipidemia, goal LDL below 70 10/31/2022 Dilated aortic root 09/20/2022 Hypertensive kidney disease with stage 3a chronic kidney disease 09/20/2022 Chronic kidney disease, stage 3a 06/20/2022 Overview: Per CKD protocol HTN, goal below 140/90 09/21/2011 Restless leg syndrome 09/21/2011 Depression 09/21/2011 BPH without obstruction/lower urinary tract symp toms 09/08/2010 Nocturia 03/16/2009 Impotence of organic origin 03/16/2009 documented as of this encounter (statuses as of 05/14/2024) Resolved Problems Problem Noted Date Diagnosed Date Resolved Date Aneurysm of aorta 04/30/2024 04/30/2024 Prediabetes 01/16/2023 02/28/2024 Overview: Per Prediabetes protocol Prostate carcinoma 06/03/2020 Cancer Staging:Clinical stage from 06/03/2020:Stage IIC(cT1c, cN0, cM0, PSA: 4.6, Grade Group: 3) - Signed by Reynold Antoine MD on 06/03/2020 Overview: 05/23/23 Urology note He has a history of prostate cancer post ERBT 08/2020 with hormone therapy. documented as of this encounter (statuses as of 05/14/2024) Immunizations Name Administration Dates Next Due COVID-19 mRNA, LNP-s, No Pre serve, 2-Dose Series (Pfizer) 08/18/2021 Pneumococcal Conjugate Vacc, 13 Valent (Prevnar) 10/18/2018 Pneumococcal Polysaccharide PPV23 (Pneumovax) Seasonal Influenza Vac., MDV, IM, 0.5 mL (Fluzon e) 05/21/2013 Seasonal Influenza, High Dos e, Trivalent, PF, IM (Fluzone HD) 04/30/2024,05/28/2015 Seasonal Influenza, Quadrivalent Hd (Fluzone Hd) 06/13/2023 Seasonal Influenza, Quadrivalent Hd, 65+ Yrs Seasonal Influenza, Trivalen t, Adjuvanted, 65+ YRS, PF, (Fluad) 06/29/2020 TDAP (age 10 and older)(Boostrix) 10/18/2018 TDAP, Age 7 and older, IM (Adacel) 03/24/2009 Zoster Vaccine Recombinant (Shingrix) 10/25/2023 documented as of this encounter Social History Tobacco Use Types Packs/Day Years Used Date Smoking Tobacco: Never Smokeless Tobacco: Never Alcohol Use Standard Drinks/Week Comments Yes 0 (1 standard drink = 0.6 oz pur e alcohol) rare-occ PHQ-2 Answer Date Recorded PHQ Adult Total Score 0 11/07/2023 Hunger Vital Sign Answer Date Recorded Within the past 12 months, y ou worried that your food would run out before you got the money to buy more. Never true 11/07/19 24 Within the past 12 months, t he food you bought just didn't last and you didn't have money to get more. Never true 11/07/2023 Childcare Answer Date Recorded Do you feel overwhelmed with taking care of a child, family member or friend? No 11/07/2023 Does your family need help f inding childcare? (Household - for ages 0-17 years) Not on file 11/07/2023 Clothing Answer Date Recorded Have you been unable to get clothing when it was really needed? No 11/07/2023 Is your family able to get c lothes or diapers when needed? (Household - for ages 0-17 years) Not on file 11/07/2023 Personal Safety Answer Date Recorded Do you feel unsafe or have concerns for your saf ety? No 11/07/2023 Do you have concerns for you r family's safety? (Household - for ages 0-17 years) Not on file 11/07/2023 Utilities Answer Date Recorded Do you have trouble paying y our heating, water, or electric bill? No 11/07/2023 Is your family able to pay t he heat, water, or electric bill? (Household - for ages 0-17 years) Not on file 11/07/2023 Does your family have access to good internet? (Household - for ages 0-17 years) Not on file 11/07/2023 Employment Status Answer Date Recorded Are you unemployed or without regular income? No 11/07/2023 Does the household have a re gular source of income? (Household - for ages 0-17 years) Not on file 11/07/2023 Social Connections Answer Date Recorded How often do you feel lonely or isolated from th ose around you? Never 11/07/2023 Financial Resource Strain Answer Date R ecorded Do you have any trouble payi ng for your medications, or do you think you might in the future? No 11/07/2023 Does your family have troubl e paying for medicine? (Household - for ages 0-17 years) Not on file 11/07/2023 Transportation Needs Answer Date Record ed READ ONLY Do you have troubl e getting a ride to medical visits or work? Never True 11/07/2023 Does your family have a hard time getting a ride to doctors visits? (Household - for ages 0-17 years) Not on file 11/07/2023 Has lack of transportation k ept you from medical appointments, meetings, work, or from getting things needed for daily living? Check all that apply. (Adult - for ages 18 years and over) Not on file 11/07/2023 Do you (or your family) have trouble finding or paying for a ride (transportation)? (Household - for ages 0-17 years) Not on file 11/07/2023 Housing Stability Answer Date Recorded Do you currently live in a s helter or have no steady place to sleep at night? No 11/07/2023 READ ONLY Do you think you a re at risk of becoming homeless? No 11/07/2023 Does your family worry about paying for your home or becoming homeless? (Household - for ages 0-17 years) Not on file 0 11/07/2023 Are you homeless or worried that you might be in the future? (Adult - for ages 18 years and over) Not on file 04/02/202 4 Are you (or your family) huber eless or worried that you might be in the future? (Household - for ages 0-17 years) Not on file Food Insecurity Answer Date Recorded Do you need food for this week? No 11/07/2023 Are you able to get enough f ood for your family? (Household - for ages 0-17 years) Not on file 11/07/2023 Does your family need food t his week? (Household - for ages 0-17 years) Not on file 11/07/2023 Do you always have enough fo od for your family? (Household - for ages 0-17 years) Not on file 11/07/2023 Sex and Gender Information Value Date Recorded Sex Assigned at Male 10/04/2022 11:07 AM EST Gender Identity Male 10/04/2022 11:07 AM EST Sexual Orientation Straight 10/04/2022 11 :07 AM EST Job Start Date Occupation Industry Not on file Not on file Not on file documented as of this encounter Functional Status Functional Status Response Date of Assess ment Are you deaf or do you have serious difficulty h earing? No 03/17/2022 Are you blind or do you have serious difficulty seeing, even when wearing glasses? No 03/17/2022 Do you have serious difficul ty walking or climbing stairs? (5 years old or older) No 03/17/2022 Do you have difficulty dress ing or bathing? (5 years old or older) No 03/17/2022 Because of a physical, menta l, or emotional condition, do you have difficulty doing errands alone such as visiting a doctor s office or shopping? (15 years old or older) No 03/17/20 Cognitive Status Response Date of Assessm ent Because of a physical, menta l, or emotional condition, do you have serious difficulty concentrating, remembering, or making decisions? (5 years old or older) No 03/17/2022 documented as of this encounter Plan of Treatment Upcoming Encounters Date Type Department Care Team (Late st Contact Info) Description 05/21/2024 2:45 PM EDT Office Visit Urology [facility] [address] [place] [id number] Osmany White Jr., MD [address] [place] [address] 07/16/2024 2:30 PM EST Office Visit Cardiology, [facility] [address] [facility] [place] [address] Fifi Gil CRNP [address] [place] [address] 11/04/2024 10:20 AM EDT Office Visit Family Practice, [facility] [address] [place] [id number] Osito Alfaro MD [address] [place] [address] 11/11/2024 9:00 AM EDT Nurse Only Ancillary Department, [facility] [address] [place] [address] [facility], Nurse [facility] [address] [place] [address] Pending Results Name Type Priority Associated Diagnoses Date /Time HEMOGLOBIN A1C Lab Routine Type 2 diabetes mellitus with stage 3a chronic kidney disease, without long-term current use of insulin ([facility]) 05/14/2024 8:25 AM EDT ALBUMIN / CREATININE RATIO, URINE Lab Routine Type 2 diabetes mellitus with stage 3a chronic kidney disease, without long-term current use of insulin ([facility]) 05/14/2024 8:25 AM EDT COMPREHENSIVE METABOLIC PANEL Lab Routine HTN, goal below 140/90 05/14/2024 8:25 AM EDT LIPID PANEL WITH DIRECT LDL IF TG IS HIGH Lab Routine Dyslipidemia, goal LDL below 70 05/14/2024 8:25 AM EDT VITAMIN B12 Lab Routine Encounter for long-term (current) use of medications 05/14/2024 8:25 AM EDT MAGNESIUM Lab Routine Encounter for long-term (current) use of medications 05/14/2024 8:25 AM EDT PSA Lab Routine History of prostate cancer 05/14/2024 8:25 AM EDT Scheduled Procedures Name Priority Associated Diagnoses Date/Ti me ESOPHAGOGASTRODUODENOSCOPY ( EGD), FLEXIBLE, TRANSORAL, DIAGNOSTIC Recall Gastritis COLONOSCOPY FLEXIBLE PROXIMAL DIAGNOSTIC Recall History of colonic polyps Health Maintenance Due Date Last Done Comments COVID-19 Vaccine ( season) 2024 08/18/2021 GFR 04/26/2024 10/25/2023, 02/2023, 03/15/2023, Additional history exists HbA1c 04/26/2024 10/25/2023, 02/2023, 03/15/2023, Additional history exists Albumin/Creatinine Ratio 06/13/2024 06/13/2023, 12/05 Diabetic Eye Exam 06/18/2024 Postponed from 1966 (Acute Illness) Diabetic Foot Exam 06/21/2024 Postponed from 1966 (Acute Illness) CKD HGB USE SMARTSET 71374 10/24/202410/24, 09/20/2022, 09/20/2022, Additional history exists CKD PHOS USE SMARTSET [id number] 10/24/2024 10/25/2023 Adult Wellness Visit 11/06/2024 11/07/2023, 11/01/19 Depression Monitoring 11/06/2024 11/07/2023 Hepatitis C Screening 04/30/2025 Postpo katiana from 1966 (Patient Declined After Education) Zoster Vaccines (2 of 2) 04/30/2025 10/25/2023 Pos tponed from 12/20/2023 (Patient Declined After Education) DTap/Tdap Vaccines (3 - Td or Tdap) 10/18/2028 10/18/2018, 03/24/2009 Colonoscopy 03/29/2029 03/29/2024, 03/08, 08/17/2022, Additional history exists Pneumococcal Vaccine: 65+ Years Completed 09/20/2022, 10/18/2018 RETIRED - COLONOSCOPY-EVERY 5 YRS AGES 18-100 Discontinued 03/29/2024, 03/29/2024, 08/17/2022, Additional history exists Influenza Vaccine (FLU shot) Completed 04/30/2024, 06/13/2023, 05/21/2022, Additional history exists HPV (Gardasil) Vaccine Aged Out No lo nger eligible based on patient's age to complete this topic Hepatitis B Vaccine Aged Out No longe r eligible based on patient's age to complete this topic MENINGOCOCCAL (MENACTRA/MENVEO) Aged Out No longer eligible based on patient's age to complete this topic documented as of this encounter Medical Devices Implanted Type Area Manager Inventory Device Identifier Shelf Expiration Date Model / Serial / Lot Kit Accessory Ams 700 [id number] - [id number] Implanted:Qty : 1 on 03/17/2022 by Trevor Khanna MD at [place] [facility] N/A: Scrotum Agentek [id number] 01/19/2027 [id number] / / [id number] Rte, Snapcone, Cx.Lgx 0.5cm - [id number] Implanted:Qty : 1 on 03/17/2022 by Trevor Khanna MD at [place] [facility] N/A: Penis Tradiio : UROLOGY [id number] 10/20/2026 [id number] / / [id number] Cx Precon Ms 21cm Ps 12cm - [id number] Implanted:Qty : 1 on 03/17/2022 by Trevor Khanna MD at [place] [facility] N/A: Penis Agentek [id number] 08/26/2023 [id number] / / [id number] Resvr Conceal [id number] - [id number] Implanted:Qty : 1 on 03/17/2022 by Trevor Khanna MD at [place] [facility] N/A: Pelvis Agentek [id number] 11/17/2023 [id number] / / [id number] documented as of this encounter Visit Diagnoses Diagnosis Type 2 diabetes mellitus with stage 3a chronic kidney disease, without long-term current use of insulin (HCC) HTN, goal below 140/90 Unspecified essential hypertension Dyslipidemia, goal LDL below 70 Other and unspecified hyperlipidemia Encounter for long-term (current) use of medications Encounter for long-term (current) use of other medications History of prostate cancer Personal history of malignant neoplasm of prostate documented in this encounter Advance Directives * Full Code (Latest Code Status on File) Date Activated Date Inactivated Comments 03/17/2022 10:18 AM 03/18/2022 2:38 PM Question Answer Comments Discussion of Advance Directives occurred with: Not Discussed Care Teams Airline Radio Operator Relationship Specialty Start Date End Date Osito Alfaro MD [address] [place] [address] PCP - General Family Medicine 09/01/21 documented as of this encounter
--- OUTSIDE RECORDS SUMMARY | 2024-05-23 15:12 | External Medical Summary | Summary of Care ---
Author Name Unknown Organization [facility] Address [address] [place] [address] Phone [phone] Care Team Providers [facility] Director Name Role Phone Osito Alfaro MD Primary Care Provider [phone] Reason for Visit * Reason Comments Follow Up Patient is here toda y for a 6 mo follow up. Patient states she would like to discuss diarrhea he had this past summer that lasted 6 weeks. Patient states the diarrhea stopped after the colonoscopy that came back normal. Patient states he would also like the arthritis in his lower back. Patient states he is taking tylenol which helps but only last a few hours and then wears off. Patient also has concerns about High BP as high as 165/110 Encounter Details Date Type Department Care Team (Late st Contact Info) Description 04/30/2024 9:40 AM EDT Office Visit [facility] [address] [place] [address] Osito Alfaro MD [address], [place] [id number] Need for prophylactic vaccination and inoculation against influenza*; Type 2 diabetes mellitus with stage 3a chronic kidney disease, without long-term current use of insulin (HCC); Chronic rhinitis; History of prostate cancer; Encounter for long-term (current) use of medications; Dilated aortic root (HCC); HTN, goal below 140/90; Dyslipidemia, goal LDL below 70 Allergies Active Allergy Reactions Criticality Noted Date Comments Cat Dander 09/01/2016 Warfarin Hives 09/01/2016 Dust Cough 03/16/2009 Mold Cough 03/16/2009 Other Allergy (See Comments) 04/04/2022 Grass - sneezing/sinus Pollen Cough 03/16/2009 Also grass documented as of this encounter (statuses as of 04/30/2024) Medications Medication Sig Dispensed Refills Start Date End Date Status LORATADINE 10 MG PO CAPS Take by mouth at bedtime. Active CENTRUM SILVER PO TABS daily Active Melatonin 10 MG Oral Tablet Take 1 Tablet by mouth at bedtime. 09/23/2021 Active metFORMIN HCl ER 500 MG Oral Tablet Extended Release 24 Hour (Glucophage XR)Indications:D M type 2, goal HbA1c < 7.5% (HCC) Take 2 tabs with breakfast daily. First 2 weeks- take 1 tab daily 180 Tablet 3 10/01/2022 Active Rosuvastatin Calcium 10 MG Oral Tablet (Crestor)Indicat ions:Dyslipidemi a, goal LDL below 70 TAKE 1 TABLET BY MOUTH ONCE DAILY IN THE EVENING 90 Tablet 3 12/25/2023 Active Additional Information Patient taking differently: [id number], Reported on 03/18/2024 Fluticasone Propionate 50 MCG/ACT Nasal Suspension (Flonase)Indicat ions:Chronic rhinitis Administer 2 Sprays into each nostril in the morning. 16 g 5 01/31/2024 Active Metoprolol Succinate ER 100 MG Oral Tablet Extended Release 24 Hour (toPROL XL)Indications:A neurysm of ascending aorta without rupture (HCC),HTN, goal [...] Active Escitalopram Oxalate 10 MG Oral Tablet (Lexapro)Indicat ions:Generalized anxiety disorder Take 1 Tablet by mouth in the morning. 90 Tablet 2 03/31/2024 Active amLODIPine Besylate 5 MG Oral Tablet (Norvasc) Take 2 Tablets by mouth in the morning. Once daily. 04/09/2024 Active amLODIPine Besylate 10 MG Oral Tablet (Norvasc)Indicat ions:HTN, goal below 140/90 Take 1 Tablet by mouth in the morning. 90 Tablet 3 04/30/2024 Active Azelastine HCl 0.1 % Nasal Solution (Astelin)Indicat ions:Chronic rhinitis Administer 1 Hardwick into nostril in the morning and 1 Hardwick before bedtime. 90 mL 3 04/30/2024 Active Lisinopril 40 MG Oral TabletIndication s:HTN, goal below 140/90 Take 1 Tablet by mouth in the morning. 90 Tablet 3 04/30/2024 Active Sildenafil Citrate 20 MG Oral Tablet (Revatio) TAKE two tablets one HOUR AT LEAST 30 MINUTES PRIOR TO FOOD OR ANY OTHER MEDICATIONS TO being needed 60 Tablet 3 01/12/2023 4 Discontinue d(Medicatio n List Clean Up) Lisinopril 20 MG Oral Tablet (Prinivil) Take 1 Tablet by mouth in the morning. 90 Tablet 2 01/31/2024 4 Discontinue d(Medicatio n/Dose Changed) Azelastine HCl 0.1 % Nasal Solution (Astelin)Indicat ions:Chronic rhinitis Administer 1 Hardwick into nostril in the morning and 1 Hardwick before bedtime. 90 mL 1 02/21/2024 4 Discontinue d(Refill) Colestipol HCl 1 GM Oral Tablet (Colestid)Indica tions:Diarrhea of presumed infectious origin Take 2 Tablets by mouth in the morning. 60 Tablet 5 02/29/2024 4 Discontinue d(Patient preference/ discontinua tion) Tamsulosin HCl 0.4 MG Oral Capsule (Flomax) Take 1 Capsule by mouth in the morning. Take 2 tabs every evening . 4 Discontinue d(Medicatio n List Clean Up) Sucralfate 1 GM Oral Tablet (Carafate) Take 1 Tablet by mouth in the morning and 1 Tablet at noon and 1 Tablet in the evening and 1 Tablet before bedtime. 120 Tablet 03/29/2024 4 Discontinue d(Patient preference/ discontinua tion) documented as of this encounter (statuses as of 04/30/2024) Active Problems Problem Noted Date Diagnosed Date [...] as of this encounter (statuses as of 04/30/2024) Resolved Problems Problem Noted Date Diagnosed Date [...] as of this encounter (statuses as of 04/30/2024) Immunizations Name Administration Dates Next Due COVID-19 mRNA, LNP-s, No Pre serve, 2-Dose Series (iSites) 08/18/2021 Pneumococcal Conjugate Vacc, 13 Valent (Prevnar) 10/18/2018 Pneumococcal Polysaccharide PPV23 (Pneumovax) Seasonal Influenza, High Dos e, Trivalent, PF, IM (Fluzone HD) 04/30/2024,05/28/2015 Seasonal Influenza, Quadrivalent Hd (Fluzone Hd) 06/13/2023 Seasonal Influenza, Quadrivalent Hd, 65+ Yrs Seasonal Influenza, Trivalen t, (IIV3), with Preserv, (Fluzone) 05/21/2013 Seasonal Influenza, Trivalen t, Adjuvanted, 65+ YRS, [...] 18 years and over) Not on file Are you (or your family) huber eless [...] on file documented as of this encounter Last Filed Vital Signs Vital Sign Reading Time Taken Comments Blood Pressure 132/92 04/30/2024 9:40 AM EDT Pulse 70 04/30/2024 9:40 AM EDT Temperature 36 C (96.8 F) 04/30/2024 9:40 AM EDT Respiratory Rate 16 04/30/2024 9:40 AM EDT Oxygen Saturation 97% 04/30/2024 9:40 AM EDT Inhaled Oxygen Concentration - - Weight 104.7 kg (230 lb 12.8 oz) 04/30/2024 9:40 AM EDT Height 175.3 cm (5' 9") 04/30/2024 9:40 AM EDT Body Mass Index 34.08 04/30/2024 9:40 AM EDT documented in this encounter Functional Status Functional Status Response [...] No 03/17/2022 documented as of this encounter Progress Notes * Osito Alfaro MD - 04/30/2024 10:29 AM EDT Subjective: Clovis Bradford is a 74 year old male. Chief Complaint Patient presents with Follow Up Patient is here today for a 6 mo follow up. Patient states she would like to discuss diarrhea he had this past summer that lasted 6 weeks. Patient states the diarrhea stopped after the colonoscopy that came back normal. Patient states he would also like the arthritis in his lower back. Patient states he is taking tylenol which helps but only last a few hours and then wears off. Patient also has concerns about High BP as high as 165/110 HPI: 74-year-old seen today as a routine recheck. He points out that he had terrible case of diarrhea that lasted for 6 weeks. Interestingly he had a colonoscopy in after the colonoscopy he did not have any the same diarrhea. He is concerned as his blood pressure at home has been running high with systolics into the 160s. He does have a history of a dilated ascending aortic arch and he does have follow-up with Cardiology in a few months' time in that regard. Has urinary frequency that includes getting up at nighttime about 5 times[address] He follows with Dr[address] العلي. 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 Continues on omeprazole 40 mg a day and this has done a good job in controlling any heartburn. Patient Active Problem List Diagnosis Nocturia Impotence of organic origin BPH without obstruction/lower urinary tract symptoms HTN, goal below 140/90 Restless leg syndrome Depression Chronic kidney disease, stage 3a (HCC) Dilated aortic root (HCC) Hypertensive kidney disease with stage 3a chronic kidney disease (HCC) Dyslipidemia, goal LDL below 70 Type 2 diabetes mellitus with stage 3a chronic kidney disease, without long-term current use of insulin (HCC) History of prostate cancer Aneurysm of aorta (HCC) Current Outpatient Medications Medication Sig Dispense Refill LORATADINE 10 MG PO CAPS Take by mouth at bedtime. CENTRUM SILVER PO TABS daily Melatonin 10 MG Oral Tablet Take 1 Tablet by mouth at bedtime. metFORMIN HCl ER 500 MG Oral Tablet Extended Release 24 Hour (Glucophage XR) Take 2 tabs with breakfast daily. First 2 weeks- take 1 tab daily 180 Tablet 3 Rosuvastatin Calcium 10 MG Oral Tablet (Crestor) TAKE 1 TABLET BY MOUTH ONCE DAILY IN THE EVENING (Patient taking differently: every morning.) 90 Tablet 3 Fluticasone Propionate 50 MCG/ACT Nasal Suspension (Flonase) Administer 2 Sprays into each nostril in the morning. 16 g 5 Azelastine HCl 0.1 % Nasal Solution (Astelin) Administer 1 Hardwick into nostril in the morning and 1 Hardwick before bedtime. 90 mL 1 Metoprolol Succinate ER 100 MG Oral Tablet Extended Release 24 Hour (toPROL XL) 1 tablet in the morning 1/2 in the evening 135 Tablet 1 citalopram 5 MG OR TABS Take by mouth at bedtime. Potassium Gluconate 595 (99 K) MG Oral Tablet Take by mouth at bedtime. Omeprazole 40 MG Oral Capsule Delayed Release (PriLOSEC) Take 1 Capsule by mouth in the morning. 90Capsule 1 Escitalopram Oxalate 10 MG Oral Tablet (Lexapro) Take 1 Tablet by mouth in the morning. 90 Tablet 2 amLODIPine Besylate 5 MG Oral Tablet (Norvasc) Take 2 Tablets by mouth in the morning. Once daily. No current facility-administered medications for this visit. Review of patient's allergies indicates: Allergen Reactions Cat Dander Coumadin [Warfarin] Hives Dust Cough Mold Cough Other Allergy (See Comments) Grass - sneezing/sinus Pollen Cough Also grass Objective: BP 132/92 | Pulse 70 | Temp 36 C (96.8 F) (Tympanic) | Resp 16 | Ht 1.753 m (5' 9") | Wt 104.7 kg (230 lb 12.8 oz) | SpO2 97% | BMI 34.08 kg/m | BSA 2.26 m Physical Exam: Note that his weight is about 8 lb higher than most weight is in the last 2 years although interestingly he has a same as he was 1 year ago. CONST: alert, pleasant, no acute distress HEAD: normocephalic, atraumatic NECK: supple, soft, no adenopathy EARS: canals normal, TMs normal Eyes - PERRLA, EOM'I OROPHARYNX: clear, no swelling or erythema, moist . Full upper denture CV: regular rate and rhythm, no murmur CHEST: clear to auscultation bilaterally, no rales or wheezing ABD: soft, non tender, non distended, no masses or hepatosplenomegaly EXT: no edema, no joint swelling or deformities, NEURO: AAOx3, no gross focal deficits, cerebellar signs normal, affect appropriate MENTAL STATUS: no evidence of thought disorder, no delusional thought, no evidence of paranoia, thought is non-tangential. SKIN: no rash or significant lesions ASSESSMENT/PLAN: Need for prophylactic vaccination and inoculation against influenza (Primary) - INFLUENZA VAC., TRIVALENT, HD, PF, 65 AND ABOVE, 0.5 ML IM (FLUZONE HD) Type 2 diabetes mellitus with stage 3a chronic kidney disease, without long-term current use of insulin (HCC) - this has been well-controlled with hemoglobin A1cs being under 6.5. Continue the metformin ER 500 mg, 2 tablets twice a day. Check hemoglobin A1c with next blood draw in about 2 weeks Known ascending aorta dilation - follow up with Cardiology. Control blood pressure Hypertension- suboptimal control. Increase lisinopril from 20-40 mg a day and continue amlodipine 10 mg a day. Consider addition of spironolactone Chronic rhinitis-he has done well with azelastine nasal spray and much better than he did with a steroid nasal spray. Routine health maintenance -highly recommended he do RSV vaccine Hyperlipidemia-continue the rosuvastatin 10 mg daily. Check lipid profile Follow Up: Return in about 6 months (around 10/28/2024) for Return with Physician. | For: Return with Physician | Check-out note: Fasting lab 7-14 days Osito Alfaro MD * Danielle Olivera LPN - 04/30/2024 9:37 AM EDT Pre-Administration Time Out Procedure Performed: Yes Patient Identified (Ask Name/Date of ): Yes Does the patient have a fever greater than 101 degrees today? No Patient allergic to latex? No Has the patient ever fainted after receiving an injection? No VFC Stock: No Immunization(s) verified: Yes, Immunization Name: Flu, VIS Sheet(s) given: Yes Verified Side and Site: Yes Verified Shot(s) with Parent(s)/Patient: Yes PRE - ADMINISTRATION DOCUMENTATION Are you experiencing any cold symptoms or fever? No Have you had Guillain-Beach Syndrome (an illness that causes paralysis) within the last 6 weeks? No Have you had the flu shot in the past? YES Have you ever had a reaction to the flu shot? No Danielle Olivera LPN, 04/30/2024 9:37 AM documented in this encounter Nursing Notes * Danielle Olivera LPN - 04/30/2024 9:44 AM EDT The patient has been properly identified by confirmation of name and date of . Chief Complaint Patient presents with Follow Up Patient is here today for a 6 mo follow up. Patient states she would like to discuss diarrhea he had this past summer that lasted 6 weeks. Patient states the diarrhea stopped after the colonoscopy that came back normal. Patient states he would also like the arthritis in his lower back. Patient states he is taking tylenol which helps but only last a few hours and then wears off. Patient also has concerns about High BP as high as 165/110 documented in this encounter Plan of Treatment Upcoming Encounters Date Type Department Care Team (Late st Contact Info) Description 05/08/2024 8:00 AM EDT [facility] [address] [place] [address] Keira Vickers RDN [address] [place] [address] 05/14/2024 8:00 AM EDT Laboratory Laboratory, [place] [address] [place] [address] [place], Laboratory [address] [place] [address] 05/21/2024 2:45 PM EDT Office Visit Urology [facility] [address] [place] [address] Osmany White Jr., MD [address] [place] [address] 07/16/2024 2:30 PM EST Office Visit Cardiology, [facility] [place] [address] [facility] [place] [address] Fifi Gil CRNP [address] [place] [id number] 11/04/2024 10:20 AM EDT Office Visit Family [facility], [place] [address] [place] [id number] Osito Alfaro MD [address] [place] [address] 11/11/2024 9:00 AM EDT Nurse Only Ancillary Department, [place] [address], [place] [phone] [place], Nurse Annual Wellness [address] [place] [address] Scheduled Orders Name Type Priority Associated Diagnoses Orde r Schedule HEMOGLOBIN A1C Lab Routine Type 2 diabetes mellitus with stage 3a chronic kidney disease, without long-term current use of insulin (HCC) Expected: 04/30/2024 (Approximate), Expires: 05/30/2025 ALBUMIN / CREATININE RATIO, URINE Lab Routine Type 2 diabetes mellitus with stage 3a chronic kidney disease, without long-term current use of insulin (HCC) Expected: 04/30/2024, Expires: 04/30/2025 COMPREHENSIVE METABOLIC PANEL Lab Routine HTN, goal below 140/90 Expected: 04/30/2024 (Approximate), Expires: 04/30/2025 LIPID PANEL WITH DIRECT LDL IF TG IS HIGH Lab Routine Dyslipidemia, goal LDL below 70 Expected: 04/30/2024, Expires: 04/30/2025 VITAMIN B12 Lab Routine Encounter for long-term (current) use of medications Expected: 04/30/2024 (Approximate), Expires: 04/30/2025 MAGNESIUM Lab Routine Encounter for long-term (current) use of medications Expected: 04/30/2024 (Approximate), Expires: 04/30/2025 PSA Lab Routine History of prostate cancer Expected: 04/30/2024 (Approximate), Expires: 04/30/2025 Scheduled Procedures Name Priority Associated Diagnoses Date/Ti [...] 1968 (Acute Illness) CKD HGB USE SMARTSET 50592 10/24/202410/24, 09/20/2022, 09/20/2022, Additional history exists CKD PHOS USE SMARTSET 85424 10/24/2024 10/25/2023 Adult Wellness Visit 11/06/2024 11/07/2023, 11/01/19 23 Depression Monitoring 11/06/2024 11/07/2023 Hepatitis C Screening [...] this encounter Medical Devices Implanted Type Area Order Schedule Clerk Device Identifier Shelf Expiration Date Model / Serial / Lot Kit Accessory Ams 700 [id number] - [id number] Implanted:Qty : 1 on 03/17/2022 by Trevor Khanna MD at OR [facility] [place] N/A: Scrotum linkedü [id number] 01/19/2027 [id number] / / [id number] Rte, Snapcone, Cx.Lgx 0.5cm - [id number] Implanted:Qty : 1 on 03/17/2022 by Trevor Khanna MD at OR [facility] [place] N/A: Penis Moxie Jean [employer] : UROLOGY [id number] 10/20/2026 [id number] / / [id number] Cx Precon Ms 21cm Ps 12cm - [id number] Implanted:Qty : 1 on 03/17/2022 by Trevor Khanna MD at OR [facility] [place] N/A: Penis linkedü [id number] 08/26/2023 [id number] / / [id number] Resvr Conceal [id number] - [id number] Implanted:Qty : 1 on 03/17/2022 by Trevor Khanna MD at OR [facility] [place] N/A: Pelvis linkedü [id number] 11/17/2023 [id number] / / [id number] documented as of this encounter Visit Diagnoses Diagnosis Need for prophylactic vaccination and inoculation against influenza- Primary Type 2 diabetes mellitus with stage 3a chronic kidney disease, without long-term current use of insulin (HCC) Chronic rhinitis History of prostate cancer Personal history of malignant neoplasm of prostate Encounter for long-term (current) use of medications Encounter for long-term (current) use of other medications Dilated aortic root (HCC) Thoracic aortic ectasia HTN, goal below 140/90 Unspecified essential hypertension Dyslipidemia, goal LDL below 70 Other and unspecified hyperlipidemia documented in this encounter Advance Directives * Full Code (Latest Code Status on File) Date Activated Date Inactivated Comments 03/17/2022 10:18 AM 03/18/2022 2:38 PM Question Answer Comments Discussion of Advance Directives occurred with: Not Discussed Care Teams [facility] Director Relationship Specialty Start Date End Date Osito Alfaro MD [address] [place] [address] PCP - General Family Medicine 09/01/21 documented as of this encounter
--- OUTSIDE RECORDS SUMMARY | 2024-05-23 15:12 | External Medical Summary ---
Author Name Unknown Address Unknown Organization [id number]:[facility] [address] [place] [address] Laboratory Report Ordering Provider Test Date Status RUSSELL MOHR 05/14/2024 08:25:52 Final Observation Date Value Abnormality Reference (Units ) Status Triglyceride 05/14/2024 08:25:52 162 <=174 ( mg/dL) Final Triglyceride Reference Range s (mg/dL):
<150 Acceptable
150-174 Borderline high
175-499 High
>=500 Very high Cholesterol 05/14/2024 08:25:52 129 <200 (mg /dL) Final Total Cholesterol Reference Ranges (mg/dL):
<200 Desirable
200-239 Borderline high
>=240 High HDL 05/14/2024 08:25:52 36 Below low normal >39 (mg/dL) Final HDL Cholesterol Reference Ra nges (mg/dL):
>=60 High (Desirable)
<50 Low (Undesirable) For Females
<40 Low (Undesirable) For Males NON-HDL CHOLESTEROL 05/14/2024 08:25:52 93 <=159 (mg/dL) Final Non-HDL Cholesterol Referenc e Range (mg/dL):
<100 Target level for high risk ASCVD patient
<130 Optimal for general population
130-159 Near optimal for general population
160-189 Borderline High
190-219 High
>=220 Very High Performing Location LABORATORY [facility] - [address] [place] [address]
--- OUTSIDE RECORDS SUMMARY | 2024-05-23 15:12 | External Medical Summary ---
Author Name Unknown Address Unknown Organization [id number]:[facility]ATORY [facility] [place] - [facility] [place] [address] [place] [address] Laboratory Report Ordering Provider Test Date Status RUSSELL MOHR 05/14/2024 08:25:52 Final Normal: <30 mg/g creatinine< br/>High: 30-300 mg/g creatinine
Very High: >300 mg/g creatinine
Nephrotic: >2200 mg/g creatinine Observation Date Value Abnormality Reference (Units ) Status Albumin, Urine 05/14/2024 08:25:52 3.00 (mg/dL) Final Creatinine, Urine 05/14/2024 08:25:52 167 (mg/dL) Final Albumin/Creatinine [Mass Ratio] in Urine 05/14/2024 08:25:52 18 <30 (mg/g Creat) Final Performing Location LABORATORY [facility] [place] - [address] [place] [address]
--- OUTSIDE RECORDS SUMMARY | 2024-05-23 15:12 | External Medical Summary | Summary of Care ---
Author Name Unknown Organization [facility] Address [address] [facility] [place] [address] Phone [phone] Care Team Providers Care Dry Roller Name Role Phone Osito Alfaro MD Primary Care Provider [phone] Reason for Visit * Reason Comments DSMT INITIAL * Evaluate & Treat - Unlimited Visits (Within 10 days (routine)) - Authorized Specialty Diagnoses / Procedures Referred By Daryl t Referred To Contact Electrical Assembler / Nutrition Services Diagnoses Type 2 diabetes mellitus with stage 3a chronic kidney disease, without long-term current use of insulin (HCC) Kareen Kunz RDN [address] [facility] [place] [address] Referral ID Status Reason Start Date Expiration Date Visits Requested Visits Authorized [id number] Authorized Specialty Services Required 02/28/2024 [id number] Encounter Details Date Type Department Care Team (Latest Contact Info) Description 05/08/2024 8:00 AM EDT Nutrition Services [place] [address] [place] [address] Keira Vickers RDN [address] [place] [address] Type 2 diabetes mellitus with stage 3a chronic kidney disease, without long-term current use of insulin (HCC)*; HTN, goal below 140/90; Dyslipidemia, goal LDL below 70; Hypertensive kidney disease with stage 3a chronic kidney disease (HCC); Obesity, Class I, BMI 30-34.9; Dilated aortic root (HCC) Allergies Active Allergy Reactions Criticality Noted Date Comments Cat Dander 09/01/2016 Warfarin Hives 09/01/2016 Dust Cough 03/16/2009 Mold Cough 03/16/2009 Other Allergy (See Comments) 04/04/2022 Grass - sneezing/sinus Pollen Cough 03/16/2009 Also grass documented as of this encounter (statuses as of 05/08/2024) Medications Medication Sig Dispensed Refills Start Date [...] Active Rosuvastatin Calcium 10 MG Oral Tablet (Crestor)Desireetio ns:Dyslipidemia, goal LDL below 70 TAKE 1 TABLET BY MOUTH ONCE DAILY IN THE EVENING 90 Tablet 3 12/25/2023 Active Additional Information Patient taking differently: [id number], Reported on 03/18/2024 Fluticasone Propionate 50 MCG/ACT [...] Nasal Solution (Astelin)Indicatio ns:Chronic rhinitis Administer 1 [place] into nostril in the morning and 1 [place] before bedtime. 90 mL 3 04/30/2024 Active Lisinopril 40 MG Oral TabletIndications: HTN, goal below 140/90 Take 1 Tablet by mouth in the morning. 90 Tablet 3 04/30/2024 Active documented as of this encounter (statuses as of 05/08/2024) Active Problems Problem Noted Date Diagnosed Date [...] as of this encounter (statuses as of 05/08/2024) Resolved Problems Problem Noted Date Diagnosed Date [...] as of this encounter (statuses as of 05/08/2024) Immunizations Name Administration Dates Next Due COVID-19 [...] No 11/07/2023 Does the household have a [facility] source of income? (Household - for ages [...] Sign Reading Time Taken Comments Blood Pressure - - Pulse - - Temperature - - Respiratory Rate - - Oxygen Saturation - - Inhaled Oxygen Concentration - - Weight 107.2 kg (236 lb 4.8 oz) 05/08/2024 8:20 AM EDT Height 175.3 cm (5' 9") 05/08/2024 8:20 AM EDT Body Mass Index 34.9 05/08/2024 8:20 AM EDT documented in this encounter Functional [...] No 03/17/2022 documented as of this encounter Patient Instructions * Patient Instructions* Keira Vickers RDN - 05/08/2024 8:58 AM EDT Participant will aim for no more than 3 servings of high-carb foods per meal. Also review nutritionlabels for total grams of carb's and serving size. documented in this encounter Progress Notes * Keira Vickers RDN - 05/08/2024 8:04 AM EDT DIABETES SELF-MANAGEMENT TRAINING/INITIAL NOTE Name: Clovis Bradford Date: 05/08/2024 Participant was seen face to face in the clinic. He is accompanied by his , Jaret. Last order of DIABETES MANAGEMENT EDUCATION (ADA) REFERRAL was found on 02/28/2024 from Telephone on02/27/2024 No order of CLINICAL NUTRITION AND DIABETES EDUCATION ANNUAL RENEWAL is found. No order of PEDIATRIC DIABETES MANAGEMENT EDUCATION (ADA) REFERRAL OP is found. ADA referral in place? Yes Participant scheduled for 1:1 training due to lack of classes scheduled within 2 months of appointment. What diabetes concerns and/or barriers to care would you like to discuss in your appointment: none.Whatever you recommend In your words, what is diabetes? asked/not answered Do you know the risks of uncontrolled diabetes? No Do you believe that diabetes can be controlled? Yes Are you ready to make small changes to help with diabetes self-management: Yes What type of diabetes do you have? Type 2 Diabetes diagnosis year: 2023 Do you have a family history of diabetes? No Have you had any previous diabetes education? Yes Support systems: Spouse Barriers to care: Poor short-term memory per participant Special Needs: Instruct caregivers Psychosocial Screening: Lately have you been feeling down, depressed or hopeless most of the day? No How Do You Manage Stress? Hugging Going outside Food Insecurity: Within the past 12 months, I worried whether our food would run out before we got money to buy more. No Within the past 12 months, the food we bought just did not last and we did not have money to buy more. No Sleep Health: Addressed - How many hours are you sleeping during the night? 8 hours and naps 1-2 times during the day Do you have difficulty falling or staying asleep? No Do you snore? No Are you waking up during the night with symptoms of low glucose levels (shaky, sweaty, nightmares)?No Are you waking up during the night to urinate frequently? Yes Diabetes Medications: Metformin ER 500 mg 2 tablets daily-participant cannot tell me if he is taking this Monitoring blood glucose, interpreting and using results Results for orders placed or performed in visit on 10/25/23 HEMOGLOBIN A1C Result Value Ref Range Hemoglobin A1C 6.4 (H) 4.0 - 5.6 % Estimated Average Glucose 137 (H) <126 mg/dL Results for orders placed or performed in visit on 06/13/23 HEMOGLOBIN A1C Result Value Ref Range Hemoglobin A1C 6.3 (H) 4.0 - 5.6 % Estimated Average Glucose 134 (H) <126 mg/dL Results for orders placed or performed in visit on 03/15/23 HEMOGLOBIN A1C Result Value Ref Range Hemoglobin A1C 7.0 (H) 4.0 - 5.6 % Estimated Average Glucose 154 (H) <126 mg/dL At goal/target Self-Monitoring Blood Glucose Source of Information: Participant does not monitor blood glucoses Hypoglycemia?: No Diet: Describes typical diet history/24-hour recall Breakfast: egg, ham, and cheese sandwich on 1/2 roll with ketchup, coffee with a little sweetened creamer Snacks: none Lunch: 1 PM chicken salad sandwich on roll, apple juice or diet soda Snacks: yogurt bar or granola bar or 1-2 cookies Dinner: chicken or fish or pork or ham or shrimp or ground beef, potato or rice or noodles or pasta, green beans or mixed vegetables or broccoli or cauliflower or spaghetti squash or corn or occasional salad, coffee with sweetened creamer Snacks: ice cream-smaller portions Drinks: coffee, water-close to 64 ounces Restaurant meals: once or twice a week Alcohol: twice a week-beer or cooler Tobacco Use: No Weight management review: Wt Readings from Last 6 Encounters: 05/08/24 107.2 kg (236 lb 4.8 oz) 04/30/24 104.7 kg (230 lb 12.8 oz) 04/11/24 103.9 kg (229 lb) 03/29/24 102.1 kg (225 lb) 02/21/24 102.2 kg (225 lb 3.2 oz) 11/07/23 103.8 kg (228 lb 14.4 oz) Recent weight changes: increased 7 lbs in past month per EPIC review Physical Activity: Limited due to pain from back issue ADA STANDARDS OF CARE/BUNDLE MEASURES Diabetes Bundle / Standards of Care: Needs COVID vaccine Therapy Management Plan: Hypertension: BP Readings from Last 3 Encounters: 04/30/24 132/92 04/11/24 124/74 03/29/24 111/75 Out of target, taking ANTHONY Dyslipidemia: Lab Results Component Value Date/Time LDL CHOLESTEROL (CALCULATED) - [facility] 70 06/13/2023 09:10 AM Lab Results Component Value Date/Time TRIGLYCERIDES - [facility] 154 06/13/2023 09:10 AM CHOLESTEROL - [facility] 133 06/13/2023 09:10 AM HDL CHOLESTEROL - [facility] 32 (L) 06/13/2023 09:10 AM At goal/target Taking statin Kidney function review: Lab Results Component Value Date/Time ESTIMATED GLOMERULAR FILTRATION RATE - [facility] 62 10/25/2023 10:51 AM ESTIMATED GLOMERULAR FILTRATION RATE - [facility] 50 05/18/2020 04:13 PM ESTIMATED GLOMERULAR FILTRATION RATE - [facility] 61 05/18/2020 04:13 PM Lab Results Component Value Date/Time ALBUMIN / CREATININE RATIO, URINE - [facility] 15 06/13/2023 09:19 AM No results found for: "PROTEIN/ CREATININE RATIO", "PROTEIN/ CREATININE RATIO, URINE - [facility]" At goal/target Taking ANTHONY DSMT Initial Visit Assessment of Content Areas: Choose the answer that represents the participant's competency in each area. All need to be assessed at initial. Areas taught must match intervention. If content area not assessed and/or intervened today, it will be deferred to future session. Diabetes disease process and treatment process: Needs instruction (1) Incorporating nutrition management into lifestyle: Needs instruction (1) Incorporating physical activity into lifestyle: Needs instruction (1) Using medications safely: Needs instruction (1) Monitoring blood glucose, interpreting and using results: Needs instruction (1) Prevention, detection, and treatment of acute complications: Needs instruction (1) Prevention, detection, and treatment of chronic complications: Needs instruction (1) Developing strategies to address psychosocial issues: Needs instruction (1) Developing strategies to promote health/change behavior: Needs instruction (1) DSMT/ Diabetes MNT intervention: Pathophysiology: Defined disease process. Discussed treatment options. Participant denies family history of diabetes. Nutrition: Educated on the effects of macronutrients on diabetes control and diabetes complications. Taught and had participant identify foods that contain carbohydrates. Taught participant how to read food labels. Educated on using ADA plate method. Emphasized importance of eating consistent mealsand monitoring portion sizes of high-carb foods. Reviewed recommended portion sizes of some common high-carb foods. Reviewed benefit of high-fiber foods on glucose control. Discussed differences between saturated and unsaturated fat. Discussed effect of saturated fat on insulin function. Encouragedhim to choose lean meats and low- fat dairy foods and decrease portion sizes of high-fat foods to minimize caloric intake and promote desired weight loss. Physical Activity: Educated on the role of physical activity on glucose control. Encouraged participant to do short sessions of activity as able. Medication: Reviewed dosage of Metformin and how it works. Participant cannot tell me if he is taking it or not. Chronic Complications: Advised that a hemoglobin A1c test measures your average blood sugar levels over a span of 2-3 months. Advised that getting your A1c under 7% is the goal for most adults. Educated on chronic complications of diabetes and prevention of retinopathy, nephropathy, neuropathy, andheart disease. Participant Selected Behavioral Objective: Nutrition: To improve blood glucose control I will aim for no more than 3 servings of high-carb foods per meal. Also review nutrition labels for total grams of carb's and serving size. Recommended Medication Changes: No changes. Education materials given to participant/caregiver and reviewed during today's visit: Understanding CHO's Planning Healthy Meals Diabetes Self-Management Support: Websites: www.diabetes.org Possible Future Topics: Content areas that were not assessed in first visit: All content areas have been assessed. Time Spent With Patient: Time in: 8:02 AM Time out: 9:00 AM Billing: DSMT: 30 Minutes Plan for Return: 3 months Participant provided with contact information for Diabetes Care and Dance Entertainer. All [facility] providers within the system are able to see [place] [employer] education and outcomes within the participant's electronic medical record. Keira Vickers RDN, NUTRITION SERVICES [facility] Diabetes Care and Dance Entertainer documented in this encounter Miscellaneous Notes * Pt Handout (on AVS) - Keira Vickers RDN - 05/08/2024 8:47 AM EDT Images from the original note were not included. [id number] Understanding Carbohydrates Just like a car needs the right type of fuel to run, you need the right kind of food to function. To keep your energy level up, your body needs food that has carbohydrates (carbs). But carbs raise blood sugar levels higher and faster than other kinds of food. Your dietitian will work with you to figure out the amount of carbs you need. Carbs come in 3 types: starches, sugars, and fiber. Starches Starches are found in grains, some vegetables, and beans. Grain products include bread, pasta, cereal, and tortillas. Starchy vegetables include potatoes, peas, corn, carr beans, yams, and squash. Kidney beans, peoples beans, black beans, garbanzo beans, and lentils also have starches. Sugars Sugars are found naturally in many foods. Or they can be added. Foods that contain natural sugar include fruits and fruit juices, dairy products, honey, and molasses. Added sugars are found in most desserts, processed foods, candy, regular soda, and fruit drinks. These are very helpful to treat lowblood sugar (hypoglycemia). They give you sugar quickly. Try to keep at least 15 to 20 grams of these simple sugars with you at all times. Eat or drink these if you start to have symptoms of low blood sugar. Fiber Fiber comes from plant foods. Your body can't digest most fiber. Instead of raising blood sugar levels like other carbs, fiber stops blood sugar from rising too quickly. Fiber is found in fruits, vegetables, whole grains, beans, peas, and many nuts. Understanding how to count your carbs Keep track of the amount of carbs you eat. This can help you keep the right balance of carbs, physical activity, and medicine. The amount of carbs you need will be different from what other people need. How much you need depends on many things. These include your health, the medicines you take, andhow active you are. Your healthcare team will help you figure out the right amount of carbs for you. You may start with 45 to 60 grams of carbs per meal, depending on your case. Carb counting is a system that helps you keep track of the carbohydrates you eat at each meal. Carbs come from many foods. These include grains, starchy vegetables, fruit, milk, beans, and snackfoods. You can either count carbohydrate grams or carbohydrate servings. When you count carbohydrate servings, 1 carbohydrate serving = 15 grams of carbohydrates. Here are some examples of foods that have about 15 grams of carbs (1 serving of carbohydrates): 1/2 cup of canned or frozen fruit A small piece of fresh fruit (4 ounces) 1 slice of bread 1/2 cup of oatmeal 1/3 cup of rice 4 to 6 crackers 1/2 [place]i muffin 1/2 cup of black beans 1/4 of a large baked potato (3 ounces) 2/3 cup of plain fat-free yogurt 1 cup of soup 1/2 cup of casserole 6 chicken nuggets [id number] brownie or cake without frosting 2 small cookies 1/2 cup of ice cream or sherbet Carb counting is easier when food labels are available. Look at the label to see how many grams of total carbs per serving the food contains. Then you can figure out how much you should eat. If your food doesn't have a nutrition label, you should be able to get an idea of how many carbs there are per serving by using a book or website. Two very important lines to look at on the label are the serving size and the total carbohydrate amount per serving. Here are some tips for using food labels to count your carbs: Check the serving size. The information on the label is based on that serving size. If you eat more than the listed serving size, you may have to double or triple the other information on the label. Check the total grams of carbs. Total carbohydrate from the label includes sugar, starch, and fiber. Be sure to use the total carbohydrate number (minus the fiber) and not sugar alone. Know how many grams of carbs you can have. Be familiar with the matching portion sizes. Compare labels. Compare the labels of different products. Look at serving sizes and total carbs to find the products that work best for you. Don't forget protein and fat. With the focus on carb counting, it might be easy to forget protein and fat in your meals. Don't forget to include sources of protein and healthy fat to balance your meals. Also watch how much salt (sodium) you eat. This is especially true if you have high blood pressure. If you have diabetes, limit the amount of sodium to less than 2,300 mg a day. It?s also important to be consistent with the amount of carbs and time you eat when taking a fixed dose of diabetes medicine. Work with your healthcare provider or dietitian if you need more help. They can help you keep track of your carbs. They can also help you figure out how many grams of carbs you should have. Last Reviewed Date: 2023 00:00:00 [id number] [employer]. All rights reserved. This information is not intended as a substitute for professional medical care. Always follow your healthcare professional's instructions. documented in this encounter Plan of Treatment Upcoming Encounters Date Type Department Care Team (Late st Contact Info) Description 05/14/2024 8:00 AM EDT Laboratory Laboratory, [facility] [address] [place] [phone] [facility] [address] [place], [place] [id number] 05/21/2024 2:45 PM EDT Office Visit Urology Bette Guardado [address] [place] [address] Osmany White Jr., MD [address] [place] [id number] 07/16/2024 2:30 PM EST Office Visit Cardiology, [facility] [address] [place] [address] Fifi Gil CRNP [address] [facility] [place], [place] [id number] 11/04/2024 10:20 AM EDT Office Visit Family Practice, [facility] [address] [place] [phone] Osito Alfaro MD [address] [place] [address] 11/11/2024 9:00 AM EDT Nurse Only Ancillary Department, [facility] [address] [place], [place] [id number] [facility], Nurse [facility] [address] [place], [place] [id number] Scheduled Procedures Name Priority Associated Diagnoses Date/Ti me ESOPHAGOGASTRODUODENOSCOPY ( EGD), FLEXIBLE, TRANSORAL, DIAGNOSTIC Recall Gastritis COLONOSCOPY FLEXIBLE PROXIMAL DIAGNOSTIC Recall History of colonic polyps Scheduled Referrals Name Type Priority Associated Diagnoses Orde r Schedule DIABETES MANAGEMENT EDUCATION (ADA) REFERRAL Referral Within 10 days (routine) Type 2 diabetes mellitus with stage 3a chronic kidney disease, without long-term current use of insulin (HCC) Ordered: 02/28/2024 Health Maintenance Due Date Last Done Comments COVID-19 Vaccine ( season) 2024 08/18/2021 GFR 04/26/2024 10/25/2023, 02/2023, 03/15/2023, Additional history exists HbA1c 04/26/2024 10/25/2023, 02/2023, 03/15/2023, Additional history exists Albumin/Creatinine Ratio 06/13/2024 06/13/2023, 12/05 Diabetic Eye Exam 06/18/2024 Postponed from 1966 (Acute Illness) Diabetic Foot Exam 06/21/2024 Postponed from 1966 (Acute Illness) CKD HGB USE SMARTSET 76010 10/24/202410/24, 09/20/2022, 09/20/2022, Additional history exists CKD PHOS USE SMARTSET 85009 10/24/2024 10/25/2023 Adult Wellness Visit 11/06/2024 11/07/2023, [...] this encounter Medical Devices Implanted Type Area Surgical Elastic Knitter Device Identifier Shelf Expiration Date Model / Serial / Lot Kit Accessory Ams [id number] - [id number] Implanted:Qty : 1 on 03/17/2022 by Trevor Khanna MD at [place] [facility] N/A: [employer] [id number] 01/19/2027 [id number] / / [id number] Rte, Snapcone, Cx.Lgx 0.5cm - [id number] Implanted:Qty : 1 on 03/17/2022 by Trevor Khanna MD at [place] [facility] N/A: Penis [employer] : UROLOGY [id number] 10/20/2026 [id number] / / [id number] Cx Precon Ms 21cm Ps 12cm - [id number] Implanted:Qty : 1 on 03/17/2022 by Trevor Khanna MD at [place] [facility] N/A: [employer]is [employer] [id number] 08/26/2023 [id number] / / [id number] Resvr Conceal [id number] - [id number] Implanted:Qty : 1 on 03/17/2022 by Trevor Khanna MD at [place] [facility] N/A: Pelvis [employer] [id number] 11/17/2023 [id number] / / [id number] documented as of this encounter Visit Diagnoses Diagnosis Type 2 diabetes mellitus with stage 3a chronic kidney disease, without long-term current use of insulin (HCC)- Primary HTN, goal below 140/90 Unspecified essential hypertension Dyslipidemia, goal LDL below 70 Other and unspecified hyperlipidemia Hypertensive kidney disease with stage 3a chronic kidney disease (HCC) Obesity, Class I, BMI 30-34.9 Obesity, unspecified Dilated aortic root (HCC) Thoracic aortic ectasia documented in this encounter Advance Directives * Full Code (Latest Code Status on File) Date Activated Date Inactivated Comments 03/17/2022 10:18 AM 03/18/2022 2:38 PM Question Answer Comments Discussion of Advance Directives occurred with: Not Discussed Care Teams Dry Roller Relationship Specialty Start Date End Date Osito Alfaro MD [address] [place] [address] PCP - General Family Medicine 09/01/21 documented as of this encounter
--- OUTSIDE RECORDS SUMMARY | 2024-05-23 15:12 | External Medical Summary ---
Author Name Unknown Address Unknown Organization K01:[facility] [place] - [address] [place] [address] Laboratory Report Ordering Provider Test Date Status RUSSELL MOHR 05/14/2024 08:25:52 Final Observation Date Value Abnormality Reference (Units ) Status HbA1C 05/14/2024 08:25:52 6.7 Above high normal 4. 0-5.6 (%) Final The use of HbA1c to monitor glycemic status is based on normal hemoglobin and HbA composition. This test should not be used in patients with abnormal hemoglobin that affects the half life of the red blood cell or the in vivo glycation rates. Glucose, estimated average 05/14/2024 08:25:52 146 Above high normal <126 (mg/dL) Berhane wilson Performing Location [facility] [place] - [address] [facility] [address]
--- OUTSIDE RECORDS SUMMARY | 2024-05-23 15:12 | External Medical Summary | Summary of Care ---
Author Name Unknown Organization [facility] Address [address] [place] [address] Phone [phone] Care Team Providers Care Video Arcade Manager Name Role Phone Osito Alfaro MD Primary Care Provider [phone] Reason for Visit * Reason Onset Date Comments No Show 04/14/2024 [facility] No Show Auto mation Encounter Details Date Type Department Care Team (Late st Contact Info) Description 04/14/2024 Telephone General Internal Medicine [facility] [address] [place] [address] Kendra Zamora MD [address] [place] [address] No Show ([place] No Show Automation) Allergies Active Allergy Reactions Criticality Noted Date Comments Cat Dander 09/01/2016 Warfarin Hives 09/01/2016 Dust Cough 03/16/2009 Mold Cough 03/16/2009 Other Allergy (See Comments) 04/04/2022 Grass - sneezing/sinus Pollen Cough 03/16/2009 Also grass documented as of this encounter (statuses as of 04/14/2024) Medications Medication Sig Dispensed Refills Start Date End Date Status LORATADINE 10 MG PO CAPS Take by mouth at bedtime. Active CENTRUM SILVER PO TABS daily Active Melatonin 10 MG Oral Tablet Take 1 Tablet by mouth at bedtime. 09/23/2021 Active metFORMIN HCl ER 500 MG Oral Tablet Extended Release 24 Hour (Glucophage XR)Indications:DM type 2, goal HbA1c < 7.5% ([facility]) Take 2 tabs with breakfast daily. First 2 weeks- take 1 tab daily 180 Tablet 3 10/01/2022 Active Sildenafil Citrate 20 MG Oral Tablet (Revatio) TAKE two tablets one HOUR AT LEAST 30 MINUTES PRIOR TO FOOD OR ANY OTHER MEDICATIONS TO being needed 60 Tablet 3 01/12/2023 Active Rosuvastatin Calcium 10 MG Oral Tablet (Crestor)Indicatio ns:Dyslipidemia, goal LDL below 70 TAKE 1 TABLET BY MOUTH ONCE DAILY IN THE EVENING 90 Tablet 3 12/25/2023 Active Additional Information Patient taking differently: [id number], Reported on 03/18/2024 Lisinopril 20 MG Oral Tablet (Prinivil) Take 1 Tablet by mouth in the morning. 90 Tablet 2 01/31/2024 Active Fluticasone Propionate 50 MCG/ACT Nasal Suspension (Flonase)Indicatio ns:Chronic rhinitis Administer 2 Sprays into each nostril in the morning. 16 g 5 01/31/2024 Active Azelastine HCl 0.1 % Nasal Solution (Astelin)Indicatio ns:Chronic rhinitis Administer 1 [place] into nostril in the morning and 1 [place] before bedtime. 90 mL 1 02/21/2024 Active Colestipol HCl 1 GM Oral Tablet (Colestid)Indicati ons:Diarrhea of presumed infectious origin Take 2 Tablets by mouth in the morning. 60 Tablet 5 02/29/2024 Active Metoprolol Succinate ER 100 MG Oral Tablet Extended Release 24 Hour (toPROL XL)Indications:Ane urysm of ascending aorta without rupture (HCC),HTN, goal below 140/90 1 tablet in the morning 1/2 in the evening 135 Tablet 1 03/04/2024 Active citalopram 5 MG OR TABS Take by mouth at bedtime. Active Tamsulosin HCl 0.4 MG Oral Capsule (Flomax) Take 1 Capsule by mouth in the morning. Take 2 tabs every evening . Active Potassium Gluconate 595 (99 K) MG Oral Tablet Take by mouth at bedtime. Active Sucralfate 1 GM Oral Tablet (Carafate) Take 1 Tablet by mouth in the morning and 1 Tablet at noon and 1 Tablet in the evening and 1 Tablet before bedtime. 120 Tablet 03/29/2024 Active Omeprazole 40 MG Oral Capsule Delayed [...] in the morning. Once daily. 04/09/2024 Active documented as of this encounter (statuses as of 04/14/2024) Active Problems Problem Noted Date Diagnosed Date Type 2 diabetes mellitus wit h stage 3a chronic kidney disease, without long-term current use of insulin 02/21/2024 Dyslipidemia, goal LDL below 70 10/31/2022 Dilated aortic root 09/20/2022 Hypertensive kidney disease with stage 3a chronic kidney disease 09/20/2022 Chronic kidney disease, stage 3a 06/20/2022 Overview: Per CKD protocol Prostate carcinoma 06/03/2020 Cancer Staging:Clinical stage from 06/03/2020:Stage IIC(cT1c, cN0, cM0, PSA: 4.6, Grade Group: 3) - Signed by Reynold Antoine MD on 06/03/2020 HTN, goal below 140/90 09/21/2011 Restless leg syndrome 09/21/2011 Depression 09/21/2011 BPH without obstruction/lower urinary tract symp toms 09/08/2010 Nocturia 03/16/2009 Impotence of organic origin 03/16/2009 documented as of this encounter (statuses as of 04/14/2024) Resolved Problems Problem Noted Date Diagnosed Date Resolved Date Prediabetes 01/16/2023 02/28/2024 Overview: Per Prediabetes protocol documented as of this encounter (statuses as of 04/14/2024) Immunizations Name Administration Dates Next Due COVID-19 mRNA, LNP-s, No Pre serve, 2-Dose Series (Pfizer) 08/18/2021 Pneumococcal Conjugate Vacc, 13 Valent (Prevnar) 10/18/2018 Pneumococcal Polysaccharide PPV23 (Pneumovax) Seasonal Influenza, High Dos e, Trivalent, PF, IM (Fluzone HD) 05/28/2015 Seasonal Influenza, Quadrivalent Hd (Fluzone Hd) 06/13/2023 [...] No 03/17/2022 documented as of this encounter Miscellaneous Notes * Telephone Encounter - [place], No Show - 04/14/2024 7:12 AM EDT Dear Clovis Bradford, Looks like you missed an appointment with KENDRA ZAMORA on 04/10/2024 at 11:20 AM. If you haven't already rescheduled, you have a couple of options: Reschedule in [email or web address] Call us at [phone] Can't make a future appointment? Cancel and let someone else have your spot! It's easy to do via [employer] or by calling us. Thanks for trusting [facility] with your care. We hope to see you back in our office soon. Sincerely, KENDRA ZAMORA documented in this encounter Plan of Treatment Upcoming Encounters Date Type Department Care Team (Late st Contact Info) Description 04/30/2024 9:40 AM EDT Office Visit Family [facility] [place] [address] [phone] Osito Alfaro MD [address] [facility] [address] 05/08/2024 8:00 AM EDT [facility] [address] [facility] [place] [address] Keira Vickers RDN [address] [facility] [place] [address] 05/14/2024 2:45 PM EDT Office Visit Urology Bette Guard[facility] [address] [facility] [address] [place] [address] Osmany White Jr., MD [address] [place] [address] 07/16/2024 2:30 PM EST Office Visit Cardiology, [facility] [address] [facility] [place] [address] Fifi Gil CRNP [address] [facility] [place] [address] 11/11/2024 9:00 AM EDT Nurse Only Ancillary Department, [place] [address] [facility] [address] [place], Nurse Annual Well[facility] [address] [facility] [phone] Scheduled Procedures Name Priority Associated Diagnoses Date/Ti me ESOPHAGOGASTRODUODENOSCOPY ( EGD), FLEXIBLE, TRANSORAL, DIAGNOSTIC Recall Gastritis COLONOSCOPY FLEXIBLE PROXIMAL DIAGNOSTIC Recall History of colonic polyps Health Maintenance Due Date Last Done Comments Hepatitis C Screening 1968 Zoster Vaccines (2 of 2) 12/20/2023 10/25/2023 COVID-19 Vaccine (2 - 2022- season) 2024 08/18/2021 Influenza Vaccine (FLU shot) (#1) 2024 06/13/2023, 05/21/2022, 06/29/2020, Additional history exists GFR 04/26/2024 10/25/2023, 02/2023, 03/15/2023, Additional history exists HbA1c 04/26/2024 10/25/2023, 02/2023, 03/15/2023, Additional history exists Albumin/Creatinine Ratio 06/13/2024 06/13/2023, 12/05 Diabetic Eye Exam 06/18/2024 Postponed from 1966 (Acute Illness) Diabetic Foot Exam 06/21/2024 Postponed from 1966 (Acute Illness) CKD HGB USE SMARTSET 75552 10/24/202410/24, 09/20/2022, 09/20/2022, Additional history exists CKD PHOS USE SMARTSET 70246 10/24/2024 10/25/2023 Adult Wellness Visit 11/06/2024 11/07/2023, 11/01/19 23 Depression Monitoring 11/06/2024 11/07/2023 DTap/Tdap Vaccines (3 - Td or Tdap) 10/18/2028 10/18/2018, 03/24/2009 Colonoscopy 03/29/2029 03/29/2024, 03/08, 08/17/2022, Additional history exists Pneumococcal Vaccine: 65+ Years Completed 09/20/2022, 10/18/2018 RETIRED - COLONOSCOPY-EVERY 5 YRS AGES 18-100 Discontinued 03/29/2024, 03/29/2024, 08/17/2022, Additional history exists HPV (Gardasil) Vaccine Aged Out No lo nger eligible based on patient's age to complete this topic Hepatitis B Vaccine Aged Out No longe r eligible based on patient's age to complete this topic MENINGOCOCCAL (MENACTRA/MENVEO) Aged Out No longer eligible based on patient's age to complete this topic documented as of this encounter Medical Devices Implanted Type Area Venetian Blind Assembler Device Identifier Shelf Expiration Date Model / Serial / Lot Kit Accessory Ams 700 [id number] - [id number] Implanted:Qty : 1 on 03/17/2022 by Trevor Khanna MD at OR [facility] [facility] N/A: Scrotum Bitstamp [id number] 01/19/2027 [id number] / / [id number] Rte, Snapcone, Cx.Lgx 0.5cm - [id number] Implanted:Qty : 1 on 03/17/2022 by Trevor Khanna MD at OR [facility] N/A: Penis [employer] : UROLOGY [id number] 10/20/2026 [id number] / / [id number] Cx Precon Ms 21cm Ps 12cm - [id number] Implanted:Qty : 1 on 03/17/2022 by Trevor Khanna MD at OR [facility] [place] N/A: Penis [employer] [id number] 08/26/2023 [id number] / / [id number] Resvr Conceal [id number] - [id number] Implanted:Qty : 1 on 03/17/2022 by Trevor Khanna MD at OR [facility] N/A: Pelvis Bitstamp [id number] 11/17/2023 [id number] / / [id number] documented as of this encounter Advance Directives * Full Code (Latest Code Status on File) Date Activated Date Inactivated Comments 03/17/2022 10:18 AM 03/18/2022 2:38 PM Question Answer Comments Discussion of Advance Directives occurred with: Not Discussed Care Teams Video Arcade Manager Relationship Specialty Start Date End Date Osito Alfaro MD [address] [place] [address] PCP - General Family Medicine 09/01/21 documented as of this encounter
--- OUTSIDE RECORDS SUMMARY | 2024-05-23 15:12 | External Medical Summary | Summary of Care ---
Author Name Unknown Organization [facility] Address [address] [place] [address] Phone [phone] Care Team Providers Care Grinding Room Inspector Name Role Phone Onur Alfaro MD Primary Care Provider [phone] Reason for Visit * Reason Comments Follow Up Encounter Details Date Type Department Care Team (Late st Contact Info) Description 05/21/2024 2:45 PM EDT Office Visit Urology Bette Guardado [address] [place] [address] Osmany White Jr., MD [address] [place] [address] Urinary frequency*; ED (erectile dysfunction) of organic origin; Malignant neoplasm of prostate (HCC) Allergies Active Allergy Reactions Criticality Noted Date Comments Cat Dander 09/01/2016 Warfarin Hives 09/01/2016 Dust Cough 03/16/2009 Mold Cough 03/16/2009 Other Allergy (See Comments) 04/04/2022 Grass - sneezing/sinus Pollen Cough 03/16/2009 Also grass documented as of this encounter (statuses as of 05/21/2024) Medications Medication Sig Dispensed Refills Start Date [...] 12/25/2023 Active Additional Information Patient taking differently: [id number], Reported on 03/18/2024 Fluticasone Propionate 50 MCG/ACT [...] Nasal Solution (Astelin)Indicatio ns:Chronic rhinitis Administer 1 [place] into nostril in the morning and 1 [place] before bedtime. 90 mL 3 04/30/2024 Active Lisinopril 40 MG Oral TabletIndications: HTN, goal below 140/90 Take 1 Tablet by mouth in the morning. 90 Tablet 3 04/30/2024 Active documented as of this encounter (statuses as of 05/21/2024) Active Problems Problem Noted Date Diagnosed Date [...] as of this encounter (statuses as of 05/21/2024) Resolved Problems Problem Noted Date Diagnosed Date [...] as of this encounter (statuses as of 05/21/2024) Immunizations Name Administration Dates Next Due COVID-19 mRNA, LNP-s, No Pre serve, 2-Dose Series (Gorsh) 08/18/2021 Pneumococcal Conjugate Vacc, 13 Valent (Prevnar) [...] as of this encounter Progress Notes * Osmany White Jr., MD - 05/21/2024 2:47 PM EDT [id number] PCP: ONUR ALFARO [address] [place] [address] Clovis Bradford is a 74 year old male, who presents in referral for evaluation of BPH OAB He also underwent a IPP surgery 03/17/22 with subsequent scrotal abscess. He has a history of prostate cancer post ERBT 08/2020 with hormone therapy. He has severe day and night frequency. He has failed multiple OAB medications. He has a small volume thickened bladder by US. He has less nocturia but still frequency. PSA Results: Lab Results Component Value Date/Time PSA - [facility] 0.34 05/14/2024 08:25 AM PSA - [facility] 0.27 06/13/2023 09:10 AM PSA - [facility] 0.37 03/02/2022 03:59 PM PSA - [facility] 2.23 06/21/2017 03:31 PM PSA - [facility] 2.50 06/09/2016 03:00 PM PSA SCREENING 1.67 10/11/2012 04:08 PM PSA SCREENING 1.64 09/15/2011 01:39 PM PSA-OUTSIDE LAB <0.01 01/21/2021 04:00 PM PSA-OUTSIDE LAB 5.74 (H) 07/30/2020 10:08 AM PSA-OUTSIDE LAB 4.58 (H) 03/04/2020 01:50 PM Current Outpatient Medications Medication Sig Dispense Refill [...] nostril in the morning. 16 g 5 Metoprolol Succinate ER 100 MG Oral Tablet [...] by mouth in the morning. Once daily. amLODIPine Besylate 10 MG Oral Tablet (Norvasc) Take 1 Tablet by mouth in the morning. 90 Tablet 3 Azelastine HCl 0.1 % Nasal Solution (Astelin) Administer 1 [place] into nostril in the morning and 1 [place] before bedtime. 90 mL 3 Lisinopril 40 MG Oral Tablet Take 1 Tablet by mouth in the morning. 90 Tablet 3 No current facility-administered medications for this visit. Review of patient's allergies indicates: Allergen Reactions Cat Dander Coumadin [Warfarin] Hives Dust Cough Mold Cough Other Allergy (See Comments) Grass - sneezing/sinus Pollen Cough Also grass Social History: Social History Tobacco Use Smoking status: Never Smokeless tobacco: Never Substance Use Topics Alcohol use: Yes Comment: rare-occ Vaping/E-Cigarette Use Vaping/E-Cigarette Use Never User Vaping/E-Cigarette Substances Nicotine No Other No Flavoring No THC No Cannabidiol (CBD) No Vaping/E-Cigarette Devices Disposable No Pre-filled or Refillable Cartridge No Refillable Tank No Pre-filled Pod No Past Surgical History: Procedure Laterality Date ARTHROPLASTY KNEE TOTAL left COLONOSCOPY, DIAGNOSTIC (RECTUM) 08/17/2022 radiation proctitis, benign adenomatous polyp, repeat 5 yrs / COLONOSCOPY FLEXIBLE PROXIMAL DIAGNOSTIC performed by Padmaja Patel DO at [facility] COLONOSCOPY, DIAGNOSTIC (RECTUM) 03/29/2024 hemorrhoids/mild diverticulosis/radiation proctitis/biopsies show adenomatous polyps/recall 5 years/COLONOSCOPY FLEXIBLE PROXIMAL DIAGNOSTIC performed by Padmaja Patel DO at [facility] EGD, FLEXIBLE, DIAGNOSTIC 03/29/2024 LA grade B reflux esophagitis/gastritis/duodenitis/biopsies mild inflammatory changes/recall 12-18 months/ESOPHAGOGASTRODUODENOSCOPY (EGD), FLEXIBLE, TRANSORAL, DIAGNOSTIC performed by Arleen Patel DO at [facility] INSERT MULTI-COMP PROSTHESIS, PENIS N/A 03/17/2022 INSERT PENILE PROSTHESIS INFLATABLE MULTI COMPONENT performed by Trevor Khanna MD at [place] [facility] OTHER (INFORMATION) bilateral hernia REMOVAL OF TONSILS, AGE 12+ VASECTOMY Patient Active Problem List Diagnosis Nocturia Impotence [...] of prostate cancer Aneurysm of aorta (HCC) Past Surgical History: no changes Past Medical History: no changes Patient's Family History: no changes GENERAL EXAM: Alert and oriented x3 and no acute distress ABDOMEN: negative, Abdomen soft, non-tender. BS normal, No masses, organomegaly, hernia RECTAL EXAM: deferred. GENITAL EXAM: Deferred Impression/Plan: He has a stable issue with frequency and ED and we will follow yearly. Osmany White Jr, MD 2:47 PM 05/21/2024 documented in this encounter Nursing Notes * Lakshmi Baltazar LPN - 05/21/2024 2:35 PM EDT Chief Complaint Patient presents with Follow Up Pt presents for frequency. Pt states he has had no changed in frequency since last appt. Getting up2-3 times a night to void and has times through the day that he will go 4-6 times an hour. Pt has coffee one to two times a day and he mainly drinks ice water. Denies pain or blood with urination. PSA Results: Lab Results Component Value Date/Time PSA - [facility] 0.34 05/14/2024 08:25 AM PSA - [facility] 0.27 06/13/2023 09:10 AM PSA - [facility] 0.37 03/02/2022 03:59 PM PSA - [facility] 2.23 06/21/2017 03:31 PM PSA - [facility] 2.50 06/09/2016 03:00 PM PSA SCREENING 1.67 10/11/2012 04:08 PM PSA SCREENING 1.64 09/15/2011 01:39 PM PSA-OUTSIDE LAB <0.01 01/21/2021 04:00 PM PSA-OUTSIDE LAB 5.74 (H) 07/30/2020 10:08 AM PSA-OUTSIDE LAB 4.58 (H) 03/04/2020 01:50 PM documented in this encounter Plan of Treatment Upcoming Encounters Date Type Department Care Team (Late st Contact Info) Description 07/16/2024 2:30 PM EST Office Visit Cardiology, [facility] [address] [facility] [place] [address] Fifi Gil CRNP [address] [place] [address] 11/04/2024 10:20 AM EDT Office Visit Family Practice, [place] [address] [place] [phone] Onur Alfaro MD [address] [place] [address] 11/11/2024 9:00 AM EDT Nurse Only Ancillary Department, [place] [address] [place] [address] [place], Nurse Annual Wellness [address] [place] [address] 05/21/2025 10:00 AM EDT Imaging Radiology [facility] [address] [facility] [place] [address] 05/28/2025 11:00 AM EDT Office Visit Urology Bette Guardado [address] [place] [address] Osmany White Jr., MD [address] [place] [address] Scheduled Orders Name Type Priority Associated Diagnoses Orde r Schedule PSA Lab Routine Urinary frequency Malignant neoplasm of prostate (HCC) Expected: 05/21/2025, Expires: 05/21/2025 US RENAL Medical Imaging Routine Urinary frequency Malignant neoplasm of prostate (HCC) Expected: 05/21/2025, Expires: 06/21/2025 Scheduled Procedures Name Priority Associated Diagnoses Date/Ti me ESOPHAGOGASTRODUODENOSCOPY ( EGD), FLEXIBLE, TRANSORAL, DIAGNOSTIC Recall Gastritis COLONOSCOPY FLEXIBLE PROXIMAL DIAGNOSTIC Recall History of colonic polyps Health Maintenance Due Date Last Done Comments COVID-19 Vaccine ( season) 2024 08/18/2021 Diabetic Eye Exam 06/18/2024 Postponed from 1968 (Acute Illness) Diabetic Foot Exam 06/21/2024 Postponed from 1968 (Acute Illness) CKD HGB USE SMARTSET 47991 10/24/202410/24, 09/20/2022, 09/20/2022, Additional history exists CKD PHOS USE SMARTSET 77980 10/24/2024 10/25/2023 Adult Wellness Visit 11/06/2024 11/07/2023, 11/01/19 23 Depression Monitoring 11/06/2024 11/07/2023 GFR 11/12/2024 05/14/2024, 10/06, 06/13/2023, Additional history exists HbA1c 11/12/2024 05/14/2024, 03, 06/13/2023, Additional history exists Hepatitis C Screening 04/30/2025 Postpo katiana from 1966 (Patient Declined After Education) Zoster Vaccines (2 of 2) 04/30/2025 10/25/2023 Pos tponed from 12/20/2023 (Patient Declined After Education) Albumin/Creatinine Ratio 05/14/2025 024, 06/13/2023, 12/21/2022 DTap/Tdap Vaccines (3 - Td or Tdap) [...] this encounter Medical Devices Implanted Type Area Dispatcher Tow Truck Device Identifier Shelf Expiration Date Model / Serial / Lot Kit Accessory Ams 700 [id number] - [id number] Implanted:Qty : 1 on 03/17/2022 by Trevor Khanna MD at [place] [facility] [place] N/A: Scrotum [employer] [id number] 01/19/2027 [id number] / / [id number] Rte, Snapcone, Cx.Lgx 0.5cm - [id number] Implanted:Qty : 1 on 03/17/2022 by Trevor Khanna MD at [place] [facility] [place] N/A: Penis [employer] : UROLOGY [id number] 10/20/2026 [id number] / / [id number] Cx Precon Ms 21cm Ps 12cm - [id number] Implanted:Qty : 1 on 03/17/2022 by Trevor Khanna MD at [place] [facility] [place] N/A: Penis [employer] [id number] 08/26/2023 [id number] / / [id number] Resvr Conceal [id number] - [id number] Implanted:Qty : 1 on 03/17/2022 by Trevor Khanna MD at [place] [facility] [place] N/A: Pelvis [employer] [id number] 11/17/2023 [id number] / / [id number] documented as of this encounter Visit Diagnoses Diagnosis Urinary frequency- Primary ED (erectile dysfunction) of organic origin Impotence of organic origin Malignant neoplasm of prostate (HCC) Malignant neoplasm of prostate documented in this encounter Advance Directives * Full Code (Latest Code Status on File) Date Activated Date Inactivated Comments 03/17/2022 10:18 AM 03/18/2022 2:38 PM Question Answer Comments Discussion of Advance Directives occurred with: Not Discussed Care Teams Grinding Room Inspector Relationship Specialty Start Date End Date Onur Alfaro MD [address] [place] [address] PCP - General Family Medicine 09/01/21 documented as of this encounter
--- OUTSIDE RECORDS SUMMARY | 2024-05-23 15:12 | External Medical Summary ---
Author Name Unknown Address Unknown Organization K01:[facility] [address] [place] [address] Laboratory Report Ordering Provider Test Date Status RUSSELL MOHR 05/14/2024 08:25:52 Final Observation Date Value Abnormality Reference (Units ) Status PSA 05/14/2024 08:25:52 0.34 <4.10 (ng/ mL) Final Performing Location [facility] [address] [place] [address]
--- OUTSIDE RECORDS SUMMARY | 2024-05-23 15:12 | External Medical Summary | Summary of Care ---
Author Name Unknown Organization [facility] Address [address] [place] [address] Phone [phone] Care Team Providers Care Thermospray Operator Name Role Phone Onur Alfaro MD Primary Care Provider [phone] Reason for Visit * Reason Onset Date Comments Medication Refill 03/30/2024 Encounter Details Date Type Department Care Team (Late st Contact Info) Description 03/30/2024 [facility]ill [facility] [address] [facility] [place] [address] Onur Alfaro MD [address] [place] [address] Generalized anxiety disorder Allergies Active Allergy Reactions Criticality Noted Date Comments Cat Dander 09/01/2016 Warfarin Hives 09/01/2016 Dust Cough 03/16/2009 Mold Cough 03/16/2009 Other Allergy (See Comments) 04/04/2022 Grass - sneezing/sinus Pollen Cough 03/16/2009 Also grass documented as of this encounter (statuses as of 03/31/2024) Medications Medication Sig Dispensed Refills Start Date [...] 12/25/2023 Active Additional Information Patient taking differently: [id number], Reported on 03/18/2024 Lisinopril 20 MG Oral Tablet (Prinivil) Take 1 Tablet by mouth in the morning. 90 Tablet 2 01/31/2024 Active Fluticasone Propionate 50 MCG/ACT Nasal Suspension (Flonase)Indicat ions:Chronic rhinitis Administer 2 Sprays into each nostril in the morning. 16 g 5 01/31/2024 Active amLODIPine Besylate 5 MG Oral Tablet (Norvasc) Take 1 Tablet by mouth in the morning. Once daily. 90 Tablet 3 02/16/2024 Active Azelastine HCl 0.1 % Nasal Solution (Astelin)Indicat ions:Chronic rhinitis Administer 1 Fulton into nostril in the morning and 1 Fulton before bedtime. 90 mL 1 02/21/2024 Active Colestipol HCl 1 GM Oral Tablet (Colestid)Indica [...] the morning. 90 Tablet 2 03/31/2024 Active Escitalopram Oxalate 10 MG Oral Tablet (Lexapro)Indicat ions:Generalized anxiety disorder Take 1 Tablet by mouth in the morning. 30 Tablet 5 09/08/2023 Discontinue d(Refill) documented as of this encounter (statuses as of 03/31/2024) Active Problems Problem Noted Date Diagnosed Date [...] as of this encounter (statuses as of 03/31/2024) Resolved Problems Problem Noted Date Diagnosed Date Resolved Date Prediabetes 01/16/2023 02/28/2024 Overview: Per Prediabetes protocol documented as of this encounter (statuses as of 03/31/2024) Immunizations Name Administration Dates Next Due COVID-19 mRNA, LNP-s, No Pre serve, 2-Dose Series (Pfizer) 08/18/2021 Pneumococcal Conjugate Vacc, 13 Valent (Prevnar) 10/18/2018 Pneumococcal Polysaccharide PPV23 (Pneumovax) Seasonal Influenza, Quadrivalent Hd (Fluzone Hd) 06/13/2023 Seasonal Influenza, Quadrivalent Hd, 65+ Yrs Seasonal Influenza, Split, IIV3, With Preserve, Inj 05/21/2013 Seasonal Influenza, Trivalent, Adjuvanted, 65+ y rs 06/29/2020 Seasonal Influenza, Trivalen t, High Dose, No Preserve, IM 05/28/2015 TDAP (age 10 and older)(Boostrix) 10/18/2018 TDAP, [...] encounter Miscellaneous Notes * Telephone Encounter - Emily [facility] - 03/31/2024 10:36 AM EDT Signed Prescriptions: Disp Refills Escitalopram Oxalate 10 MG Oral Tablet (Le*90 Tab*2 Sig: Take 1 Tablet by mouth in the morning.Authorizing Provider: ONUR ALFARO User: EMILY DONGRefused Prescriptions: Disp Refills Omeprazole 40 MG Oral Capsule Delayed Rele*90 Cap*1 Sig: Take 1 Capsule by mouth in the morning.Refused [facility]: [facility] Request already responded to by other means documented in this encounter Plan of Treatment Upcoming Encounters Date Type Department Care Team (Late st Contact Info) Description 04/30/2024 9:40 AM EDT Office Visit Family [facility], [place] [address] [place] [facility] [place] [phone] Onur Alfaro MD [address] [place] [facility] [place] [address] 05/08/2024 8:00 AM EDT [facility] [address] [facility] [address] Keira Vickers, [place] [address] [place] [address] 11/11/2024 9:00 AM EDT Nurse Only Ancillary Department, [place] [address] [place] [facility] [place] [address] [place], Nurse Annual Wellness [address] [place] [address] Health Maintenance Due Date Last Done Comments Diabetic Eye Exam 1968 Diabetic Foot Exam 1968 Hepatitis C Screening 1968 COVID-19 Vaccine (2 - 2022- season) 2023 08/18/2021 Zoster Vaccines (2 of 2) 12/20/2023 10/25/2023 Influenza Vaccine (FLU shot) (#1) 2024 06/13/2023, 05/21/2022, 06/29/2020, Additional history exists GFR 04/26/2024 10/25/2023, 0 02/2023, 03/15/2023, Additional history exists HbA1c 04/26/2024 10/25/2023, 02/2023, 03/15/2023, Additional history exists Albumin/Creatinine Ratio 06/13/2024 06/13/2023, 12/05 CKD HGB USE SMARTSET 26984 10/24/202410/24, 09/20/2022, 09/20/2022, Additional history exists CKD PHOS USE SMARTSET 44166 10/24/2024 10/25/2023 Adult Wellness Visit 11/06/2024 11/07/2023, 11/01/19 Depression Monitoring 11/06/2024 11/07/2023 DTaP,Tdap,and Td Vaccines (3 - Td or Tdap) 10/18/2028 10/18/2018, 03/24/2009 Colonoscopy 03/29/2029 03/29/2024, 08/07, 08/17/2022, Additional history exists Pneumococcal Vaccine: 65+ Years Completed 09/20/2022, 10/18/2018 RETIRED - COLONOSCOPY-EVERY 5 YRS AGES 18-100 Discontinued 03/29/2024, 08/17/2022, 08/17/2022, Additional history exists HPV (Gardasil) Vaccine Aged Out No lo nger eligible based on patient's age to complete this topic Hepatitis B Vaccine Aged Out No longe r eligible based on patient's age to complete this topic MENINGOCOCCAL (MENACTRA/MENVEO) Aged Out No longer eligible based on patient's age to complete this topic documented as of this encounter Medical Devices Implanted Type Area Customer Quality Engineer Device Identifier Shelf Expiration Date Model / Serial / Lot Kit Accessory Ams 700 [id number] - [id number] Implanted:Qty : 1 on 03/17/2022 [place] Kh[place] [facility] [place] Scrotum [employer] [id number] 01/19/2027 [id number] / / [id number] Rte, Krystyna, Alfonso.Lgx 0.5cm - [id number] Implanted:Qty : 1 on 03/17/2022 by Trevor Khanna MD [place] [facility] [place]: Penis [employer] : UROLOGY [id number] 10/20/2026 [id number] / / [id number] Cx Precon Ms 21cm Ps 12cm - [id number] Implanted:Qty : 1 on 03/17/2022 by Trevor Khanna MD [place] [facility] [place]: Penis [employer] [id number] 08/26/2023 [id number] / / [id number] Resvr Conceal [id number] - [id number] Implanted:Qty : 1 on 03/17/2022 by Trevor Khanna MD [place] [facility] [place]: Pelvis [employer] [id number] 11/17/2023 [id number] / / [id number] documented as of this encounter Visit Diagnoses Diagnosis Generalized anxiety disorder documented in this encounter Advance Directives * Full Code (Latest Code Status on File) Date Activated Date Inactivated Comments 03/17/2022 10:18 AM 03/18/2022 2:38 PM Question Answer Comments Discussion of Advance Directives occurred with: Not Discussed Care Teams Thermospray Operator Relationship Specialty Start Date End Date Onur Alfaro MD [address] [facility] [place] [phone] PCP - General Family Medicine 09/01/21 documented as of this encounter
--- OUTSIDE RECORDS SUMMARY | 2024-05-23 15:12 | External Medical Summary ---
Author Name Unknown Address Unknown Organization K01:[facility] [place] - [address] [place] [address] Laboratory Report Ordering Provider Test Date Status RENETTA MOHRMYRA 05/14/2024 08:25:52 Final Observation Date Value Abnormality Reference (Units ) Status LDL, (direct) 05/14/2024 08:25:52 64 <=129 (mg/dL) Final LDL Cholesterol Reference Ra nges (mg/dL):
<70 Target level for high risk ASCVD patient
<100 Optimal for general population
100-129 Near optimal for general population
130-159 Borderline high
160-189 High
>=190 Very high Performing Location LAB[facility]ATORY [facility] - [address] [place] [address]
--- OUTSIDE RECORDS SUMMARY | 2024-05-23 15:12 | External Medical Summary | Summary of Care ---
Author Name Unknown Organization [facility] Address [address] [place] [address] Phone [phone] Care Team Providers Care Hospice Registered Nurse Name Role Phone Osito Alfaro MD Primary Care Provider Reason for Visit * Reason Onset Date Comments Encounter Created in Error 04/09/2024 Encounter Details Date Type Department Care Team (Late st Contact Info) Description 04/09/2024 Telephone [facility] [address] [place] [facility] [place] [address] Osito Alfaro MD [address] [place] [address] Encounter Created in Error Allergies Active Allergy Reactions Criticality Noted Date Comments Cat Dander 09/01/2016 Warfarin Hives 09/01/2016 Dust Cough 03/16/2009 Mold Cough 03/16/2009 Other Allergy (See Comments) 04/04/2022 Grass - sneezing/sinus Pollen Cough 03/16/2009 Also grass documented as of this encounter (statuses as of 04/09/2024) Medications Medication Sig Dispensed Refills Start Date [...] 12/25/2023 Active Additional Information Patient taking differently: [id number], Reported on 03/18/2024 Lisinopril 20 MG Oral Tablet (Prinivil) Take 1 Tablet by mouth in the morning. 90 Tablet 2 01/31/2024 Active Fluticasone Propionate 50 MCG/ACT Nasal Suspension (Flonase)Indicat ions:Chronic rhinitis Administer 2 Sprays into each nostril in the morning. 16 g 5 01/31/2024 Active Azelastine HCl 0.1 % Nasal Solution (Astelin)Indicat ions:Chronic rhinitis Administer 1 Tenstrike into nostril in the morning and 1 Tenstrike before bedtime. 90 mL 1 02/21/2024 Active [...] morning. Once daily. 90 Tablet 3 02/16/2024 4 Discontinued documented as of this encounter (statuses as of 04/09/2024) Active Problems Problem Noted Date Diagnosed Date [...] as of this encounter (statuses as of 04/09/2024) Resolved Problems Problem Noted Date Diagnosed Date Resolved Date Prediabetes 01/16/2023 02/28/2024 Overview: Per Prediabetes protocol documented as of this encounter (statuses as of 04/09/2024) Immunizations Name Administration Dates Next Due COVID-19 mRNA, LNP-s, No Pre serve, 2-Dose Series ([employer]) 08/18/2021 Pneumococcal Conjugate Vacc, 13 Valent (Prevnar) [...] Care Team (Late st Contact Info) Description 04/10/2024 11:20 AM EDT Office Visit General [facility] [address] [place] [address] Kendra Zamora MD [address] [place] [address] 04/30/2024 9:40 AM EDT [address] [place] [address] [phone] Osito Alfaro MD [address] [place] [address] 05/08/2024 8:00 AM EDT Nutrition Services Nutrition, [facility] [address] [facility] [place] [address] Keira Vickers, [place] [address] [facility] [place] [address] 11/11/2024 9:00 AM EDT Nurse Only Ancillary Department, [place] [address] [facility] [place] [phone] [place], Nurse Annual Wellness [address] [facility] [place] [address] Scheduled Procedures Name Priority Associated Diagnoses Date/Ti me ESOPHAGOGASTRODUODENOSCOPY ( EGD), FLEXIBLE, TRANSORAL, DIAGNOSTIC Recall Gastritis COLONOSCOPY FLEXIBLE PROXIMAL DIAGNOSTIC Recall History of colonic polyps Health Maintenance Due Date Last Done Comments Diabetic Eye Exam 1966 Diabetic Foot Exam 1966 Hepatitis C Screening 1966 Zoster Vaccines (2 of 2) 12/20/2023 10/25/2023 COVID-19 Vaccine (2 - 2022- season) 2024 08/18/2021 Influenza Vaccine (FLU shot) (#1) 2024 06/13/2023, 05/21/2022, 06/29/2020, Additional history exists GFR 04/26/2024 10/25/2023, 02/2023, 03/15/2023, Additional history exists HbA1c 04/26/2024 10/25/2023, 02/2023, 03/15/2023, Additional history exists Albumin/Creatinine Ratio 06/13/2024 06/13/2023, 12/05 CKD HGB USE SMARTSET 38957 10/24/202410/24, 09/20/2022, 09/20/2022, Additional history exists CKD PHOS USE SMARTSET 80704 10/24/2024 10/25/2023 Adult Wellness Visit 11/06/2024 11/07/2023, 11/01/19 Depression Monitoring 11/06/2024 11/07/2023 DTap/Tdap Vaccines (3 [...] this encounter Medical Devices Implanted Type Area Visual Display Manager Device Identifier Shelf Expiration Date Model / Serial / Lot Kit Accessory Ams 700 [id number] - [id number] Implanted:Qty : 1 on 03/17/2022 by Trevor Khanna MD at [place] [facility] [place] N/A: Scrotum [employer] [id number] 01/19/2027 [id number] / / [id number] Rte, Snapcone, Cx.Lgx 0.5cm - [id number] Implanted:Qty : 1 on 03/17/2022 by Trevor Khanna MD at OR [facility] [place] N/A: Penis [employer] : UROLOGY [id number] 10/20/2026 [id number] / / [id number] Cx Precon Ms 21cm Ps 12cm - [id number] Implanted:Qty : 1 on 03/17/2022 by Trevor Khanna MD at OR [facility] [place] N/A: Penis [employer] [id number] 08/26/2023 [id number] / / [id number] Resvr Conceal [id number] - [id number] Implanted:Qty : 1 on 03/17/2022 by Trevor Khanna MD at OR [facility] [place] N/A: [facility] [employer] [id number] 11/17/2023 [id number] documented as of this encounter Advance Directives * Full Code (Latest Code Status on File) Date Activated Date Inactivated Comments 03/17/2022 10:18 AM 03/18/2022 2:38 PM Question Answer Comments Discussion of Advance Directives occurred with: Not Discussed Care Teams Hospice Registered Nurse Relationship Specialty Start Date End Date Osito Alfaro MD [address] [place] [phone] PCP - General Family Medicine 09/01/21 documented as of this encounter
--- OUTSIDE RECORDS SUMMARY | 2024-05-23 15:12 | External Medical Summary | Summary of Care ---
Author Name Unknown Organization [facility] Address [address] [place] [address] Phone [phone] Care Team Providers Care Caramel Cutter Hand Name Role Phone Osito Alfaro MD Primary Care Provider [phone] Reason for Referral * Evaluate & Treat - Unlimited Visits (Within 10 days (routine)) - Authorized Specialty Diagnoses / Procedures Referred By Contact Referred To Contact Cardiovascular Medicine / Cardiology Diagnoses HTN, goal below 140/90 Dilated aortic root (HCC) Ewa Rush DO [address] [place] [address] Referral ID Status Reason Start Date Expiration Date Visits Requested Visits Authorized [id number] Authorized Specialty Services Required 04/11/[phone] Question Answer Referral Priority Within 10 days (routine) Where should this appointment be scheduled? [facility] To which of the following clinics are you referring your patient? General Cardiology Clinic Reason for Visit * Reason Comments Acute Pt here for high BP and refused to go to ER to be evaluated was 158/105 and has been higher. Encounter Details Date Type Department Care Team (Late st Contact Info) Description 04/11/2024 11:00 AM EDT Office Visit Family [employer] [address] [place] [address] Ewa Rush DO [address] [place] [address] HTN, goal below 140/90*; Dilated aortic root (HCC) Allergies Active Allergy Reactions Criticality Noted Date Comments Cat Dander 09/01/2016 Warfarin Hives 09/01/2016 Dust Cough 03/16/2009 Mold Cough 03/16/2009 Other Allergy (See Comments) 04/04/2022 Grass - sneezing/sinus Pollen Cough 03/16/2009 Also grass documented as of this encounter (statuses as of 04/11/2024) Medications Medication Sig Dispensed Refills Start Date End Date Status LORATADINE 10 MG PO CAPS Take by mouth at bedtime. Active CENTRUM SILVER PO TABS daily Active Melatonin 10 MG Oral Tablet Take 1 Tablet by mouth at bedtime. 09/23/2021 Active metFORMIN HCl ER 500 MG Oral Tablet Extended Release 24 Hour (Glucophage XR)Indications:DM type 2, goal HbA1c < 7.5% ([facility]) Take 2 tabs with breakfast daily. First [...] 12/25/2023 Active Additional Information Patient taking differently: [id number], Reported on 03/18/2024 Lisinopril 20 MG Oral Tablet (Prinivil) Take 1 Tablet by mouth in the morning. 90 Tablet 2 01/31/2024 Active Fluticasone Propionate 50 MCG/ACT Nasal Suspension (Flonase)Indicatio ns:Chronic rhinitis Administer 2 Sprays into each nostril in the morning. 16 g 5 01/31/2024 Active Azelastine HCl 0.1 % Nasal Solution (Astelin)Indicatio ns:Chronic rhinitis Administer 1 Norcross into nostril in the morning and 1 Norcross before bedtime. 90 mL 1 02/21/2024 Active [...] as of this encounter (statuses as of 04/11/2024) Active Problems Problem Noted Date Diagnosed Date [...] as of this encounter (statuses as of 04/11/2024) Resolved Problems Problem Noted Date Diagnosed Date Resolved Date Prediabetes 01/16/2023 02/28/2024 Overview: Per Prediabetes protocol documented as of this encounter (statuses as of 04/11/2024) Immunizations Name Administration Dates Next Due COVID-19 [...] Date Smoking Tobacco: Never Smokeless Tobacco: Never Tobacco Cessation:Counseling Given: Not Answered Alcohol Use Standard Drinks/Week Comments Yes 0 [...] No 11/07/2023 Does the household have a [facility] income? (Household - for ages [...] Sign Reading Time Taken Comments Blood Pressure 124/74 04/11/2024 11:14 AM EDT Pulse 64 04/11/2024 11:14 AM EDT Temperature 36.8 C (98.2 F) 04/11/2024 11:14 AM E DT Respiratory Rate 16 04/11/2024 11:14 AM EDT Oxygen Saturation - - Inhaled Oxygen Concentration - - Weight 103.9 kg (229 lb) 04/11/2024 11:14 AM EDT Height - - Body Mass Index 33.8 03/29/2024 1:40 PM EDT documented in this encounter Functional Status [...] as of this encounter Progress Notes * Ewa Rush, - 04/11/2024 11:22 AM EDT Subjective: Clovis Bradford is a 73 year old male. Chief Complaint Patient presents with Acute Pt here for high BP and refused to go to ER to be evaluated was 158/105 and has been higher. There are no exam notes on file for this visit. HPI: This is a 73 year old male with PMHx as below presents with BP issues BP check today was normal Health Maintenance Due Topic Date Due Hepatitis C Screening Never done Zoster Vaccines (2 of 2) 12/20/2023 Influenza Vaccine (FLU shot) (1) 04/07/2024 COVID-19 Vaccine (2 - season) 2024 HbA1c 04/26/2024 Albumin/Creatinine Ratio 06/13/2024 Patient Active Problem List Diagnosis Nocturia Impotence of organic origin BPH without obstruction/lower urinary tract symptoms HTN, goal below 140/90 Restless leg syndrome Depression Prostate carcinoma (HCC) Chronic kidney disease, stage 3a (HCC) Dilated aortic root (HCC) Hypertensive kidney disease with stage 3a chronic kidney disease (HCC) Dyslipidemia, goal LDL below 70 Type 2 diabetes mellitus with stage 3a chronic kidney disease, without long-term current use of insulin (HCC) Current Outpatient Medications Medication Sig Dispense [...] take 1 tab daily 180 Tablet 3 Sildenafil Citrate 20 MG Oral Tablet (Revatio) TAKE two tablets one HOUR AT LEAST 30 MINUTES PRIOR TO FOOD OR ANY OTHER MEDICATIONS TO being needed 60 Tablet 3 Lisinopril 20 MG Oral Tablet (Prinivil) Take 1 Tablet by mouth in the morning. 90 Tablet 2 Fluticasone Propionate 50 MCG/ACT Nasal Suspension (Flonase) Administer 2 Sprays into each nostril in the morning. 16 g 5 Azelastine HCl 0.1 % Nasal Solution (Astelin) Administer 1 Norcross into nostril in the morning and 1 Norcross before bedtime. 90 mL 1 Colestipol HCl 1 GM Oral Tablet (Colestid) Take 2 Tablets by mouth in the morning. 60 Tablet 5 Metoprolol Succinate ER 100 MG Oral Tablet Extended Release 24 Hour (toPROL XL) 1 tablet in the morning 1/2 in the evening 135 Tablet 1 citalopram 5 MG OR TABS Take by mouth at bedtime. Tamsulosin HCl 0.4 MG Oral Capsule (Flomax) Take 1 Capsule by mouth in the morning. Take 2 tabs every evening . Potassium Gluconate 595 (99 K) MG Oral Tablet Take by mouth at bedtime. Sucralfate 1 GM Oral Tablet (Carafate) Take 1 Tablet by mouth in the morning and 1 Tablet at noon and 1 Tablet in the evening and 1 Tablet before bedtime. 120 Tablet 0 Omeprazole 40 MG Oral Capsule Delayed Release (PriLOSEC) Take 1 Capsule by mouth in the morning. 90Capsule 1 Escitalopram Oxalate 10 MG Oral Tablet (Lexapro) Take 1 Tablet by mouth in the morning. 90 Tablet 2 amLODIPine Besylate 5 MG Oral Tablet (Norvasc) Take 2 Tablets by mouth in the morning. Once daily. Rosuvastatin Calcium 10 MG Oral Tablet (Crestor) TAKE 1 TABLET BY MOUTH ONCE DAILY IN THE EVENING (Patient taking differently: every morning.) 90 Tablet 3 No current facility-administered medications for this visit. No past medical history on file. Past Surgical History: Procedure Laterality Date ARTHROPLASTY KNEE TOTAL left COLONOSCOPY, DIAGNOSTIC (RECTUM) 08/17/2022 radiation proctitis, benign adenomatous polyp, repeat 5 yrs / COLONOSCOPY FLEXIBLE PROXIMAL DIAGNOSTIC performed by Padmaja Patel DO at ENDOSCOPY [facility] COLONOSCOPY, DIAGNOSTIC (RECTUM) 03/29/2024 hemorrhoids/mild diverticulosis/radiation proctitis/biopsies show adenomatous polyps/recall 5 years/COLONOSCOPY FLEXIBLE PROXIMAL DIAGNOSTIC performed by Padmaja Patel DO at ENDOSCOPY [facility] EGD, FLEXIBLE, DIAGNOSTIC 03/29/2024 LA grade B reflux esophagitis/gastritis/duodenitis/biopsies mild inflammatory changes/recall 12-18 months/ESOPHAGOGASTRODUODENOSCOPY (EGD), FLEXIBLE, TRANSORAL, DIAGNOSTIC performed by Arleen Patel DO at ENDOSCOPY [facility] INSERT MULTI-COMP PROSTHESIS, PENIS N/A 03/17/2022 INSERT PENILE PROSTHESIS INFLATABLE MULTI COMPONENT performed by Trevor Khanna MD at [facility] OTHER (INFORMATION) bilateral hernia REMOVAL OF TONSILS, AGE 12+ VASECTOMY Review of patient's allergies indicates: Allergen Reactions Cat Dander Coumadin [Warfarin] Hives Dust Cough Mold Cough Other Allergy (See Comments) Grass - sneezing/sinus Pollen Cough Also grass No family history on file. Family Status Relation Status Mo Fa Bro Alive Sis Alive Sis Alive Son Alive Social History Socioeconomic History Marital status: Spouse name: Not on file Number of children: 1 Years of education: Not on file Highest education level: Not on file Occupational History Occupation: [employer] Employer: [email or web address] Tobacco Use Smoking status: Never Smokeless tobacco: Never Vaping Use Vaping status: Never Used Substance and Sexual Activity Alcohol use: Yes Comment: rare-occ Drug use: No Sexual activity: Not on file Other Topics Concern Not on file Social History Narrative Not on file Social Determinants of Health Financial Resource Strain: Low Risk (11/07/2023) Financial Resource Strain Do you have any trouble paying for your medications, or do you think you might in the future? (Adult - for ages 18 years and over): No Does your family have trouble paying for medicine? (Household - for ages 0-17 years): Not on file Food Insecurity: No Food Insecurity (11/07/2023) Food Insecurity Do you need food for this week? (Adult - for ages 18 years and over): No Are you able to get enough food for your family? (Household - for ages 0-17 years): Not on file Does your family need food this week? (Household - for ages 0-17 years): Not on file Do you always have enough food for your family? (Household - for ages 0-17 years): Not on file Transportation Needs: No Transportation Needs (11/07/2023) Transportation Needs Do you have trouble getting a ride to medical visits or work? (Adult - for ages 18 years and over):Never True Does your family have a hard time getting a ride to doctors visits? (Household - for ages 0-17 years): Not on file Has lack of transportation kept you from medical appointments, meetings, work, or from getting things needed for daily living? Check all that apply. (Adult - for ages 18 years and over): Not on file Do you (or your family) have trouble finding or paying for a ride (transportation)? (Household - for ages 0-17 years): Not on file Social Connections: Socially Integrated (11/07/2023) Social Connections How often do you feel lonely or isolated from those around you? (Adult - for ages 18 years and over): Never Housing Stability: Low Risk (11/07/2023) Housing Stability Do you currently live in a fci or have no steady place to sleep at night? (Adult - for ages 18 years and over): No Do you think you are at risk of becoming homeless? (Adult - for ages 18 years and over): No Does your family worry about paying for your home or becoming homeless? (Household - for ages 0-17 years): Not on file Are you homeless or worried that you might be in the future? (Adult - for ages 18 years and over): Not on file Are you (or your family) homeless or worried that you might be in the future? (Household - for ages0-17 years): Not on file Review of Systems: As per HPI all other ROS negative. Wt Readings from Last 3 Encounters: 04/11/24 103.9 kg (229 lb) 03/29/24 102.1 kg (225 lb) 02/21/24 102.2 kg (225 lb 3.2 oz) Results for orders placed or performed during the hospital encounter of 03/29/24 SURGICAL PATHOLOGY Result Value Ref Range Final Diagnosis A. Duodenum, biopsy: Duodenal mucosa with focal hyperemia feature consistent with erosion /mild chronic duodenitis. No villous blunting, significant active inflammation or intraepithelial lymphocytosis. B. Stomach, biopsy: Gastric oxyntic mucosa with hyperemia and minimal chronic inflammation. No H.pylori like organism identified. C. Esophagus, biopsy: Squamocolumnar mucosa with finding consistent with reflux esophagitis. See note. No diagnostic evidence of intestinal metaplasia or dysplasia identified. D. Colon, biopsy: Colonic mucosa with no significant histopathologic changes. Note for part D: Tissue sections of the colon biopsies reveal unremarkable colonic mucosa. No significant active inflammation, dysplasia, or evidence of microscopic colitis identified. E. Colon, descending, polyp, polypectomy: Tubular adenoma. Gross Description A. Duodenum. Received in formalin with a container labeled with "Clovis A Overdorf", "[id number]", "1950" and "duodenum". Received are multiple fragments of araiza tissue measuring from 0.2 up to 0.4 cm in greatest dimension. Specimen entirely submitted in cassette A1. Gross By: CARLOS B. Stomach. Received in formalin with a container labeled with "Clovis A Overdorf", "[id number]", "1950" and "stomach". Received are multiple fragments of araiza tissue measuring from 0.2 up to 0.5 cm in greatestdimension. Specimen entirely submitted cassette B1. Gross By: CARLOS C. Esophagus. Received in formalin with a container labeled with "Clovis A Overdorf", "[id number]", "1950" and "esophagus". Received are 2 fragments of araiza shaggy tissue measuring 0.4 and 0.4 cm in greatest dimension. Specimen entirely submitted in cassette C1. Gross By: CARLOS D. Colon, Unspecified. Received in formalin with a container labeled with "Clovis A Overdorf", "[id number]", "1950" and "entire colon". Received are multiple fragments of araiza tissue measuring from 0.2 up to 0.5 cm in greatest dimension. Specimen entirely submitted in cassette D1. Gross By: CARLOS Perez. Colon, Descending. Received in formalin with a container labeled with "Clovis A Overdorf", "[id number]", "1950" and "descending polyp". Received are 2 fragments of araiza tissue measuring 0.2 and 0.6 cm in greatest dimension. Specimen entirely submitted in cassette E1. Gross By: KB Sign Out Location Pathologist sign out performed at [facility] ([facility] [address] [place] [address]. Photographic images and diagrams represent jackson findings in this case; they are not intended to replace a complete review of the final diagnostic report. The following statement applies to Flow Cytometry, Histology, In situ Hybridization Assays and Molecular Genetics. This test was developed and performed at [facility] and its performance characteristics determined by [employer] [facility] [employer]. It has not been cleared or approved by the U.S. Food and Drug Administration. The FDA has determined that such clearance or approval is not necessary. This test is used for clinical purposes. It should not be regarded as investigationalor for research. Special stains, including histochemical stains, and studies using immunologic and SURYA methodology (where applicable) are performed with appropriate positive and negative control reactions. GLUCOSE METER, POINT OF CARE Result Value Ref Range Glucose Meter 125 (H) 70 - 120 mg/dL OBJECTIVE: Physical Exam: BP 124/74 | Pulse 64 | Temp 36.8 C (98.2 F) (Tympanic) | Resp 16 | Wt 103.9 kg (229 lb) | BMI 33.80 kg/m | BSA 2.25 m General: alert, healthy, and no distress Heart: regular rate & rhythm, no murmur, and no gallops Lungs: lungs clear to auscultation HTN, goal below 140/90 (Primary) - CARDIOLOGY REFERRAL OP Dilated aortic root (HCC) - CARDIOLOGY REFERRAL OP Follow-up: Return if symptoms worsen or fail to improve. | Check-out note: Overdue to see cardio Ewa Rush DO documented in this encounter Plan of Treatment Upcoming Encounters Date Type Department Care Team (Late st Contact Info) Description 04/30/2024 9:40 AM EDT Office Visit [facility] [address] [place] [address] Osito Alfaro MD [address] [place] [address] 05/08/2024 8:00 AM EDT Nutrition Services Nutrition, [facility] [address] [facility] [place] [address] Keira Vickers, STEWART [address] [place] [address] 07/16/2024 2:30 PM EST Office Visit Cardiology, [facility] [address] [facility] [place] [address] Fifi Gil CRNP [address] [facility] [place] [address] 11/11/2024 9:00 AM EDT Nurse Only Ancillary Department, [place] [address] [facility] [address] [place], Nurse Annual [facility]ness [address] [facility] [place] [address] Scheduled Procedures Name Priority Associated Diagnoses Date/Ti me ESOPHAGOGASTRODUODENOSCOPY ( EGD), FLEXIBLE, TRANSORAL, DIAGNOSTIC Recall Gastritis COLONOSCOPY FLEXIBLE PROXIMAL DIAGNOSTIC Recall History of colonic polyps Scheduled Referrals Name Type Priority Associated Diagnoses Orde r Schedule CARDIOLOGY REFERRAL OP Referral Within 10 days (routine) HTN, goal below 140/90 Dilated aortic root (HCC) Ordered: 04/11/2024 Health Maintenance Due Date Last Done Comments Hepatitis C Screening 1968 Zoster Vaccines (2 of 2) 12/20/2023 10/25/2023 COVID-19 Vaccine (2 - 2022- season) 2024 08/18/2021 Influenza Vaccine (FLU shot) (#1) 2024 06/13/2023, 05/21/2022, 06/29/2020, Additional history exists GFR 04/26/2024 10/25/2023, 0 02/2023, 03/15/2023, Additional history exists HbA1c 04/26/2024 10/25/2023, 110 02/2023, 03/15/2023, Additional history exists Albumin/Creatinine Ratio 06/13/2024 06/13/2023, 12/05 Diabetic Eye Exam 06/18/2024 Postponed from 1968 (Acute Illness) Diabetic Foot Exam 06/21/2024 Postponed from 1968 (Acute Illness) CKD HGB USE SMARTSET 97096 10/24/202410/24, 09/20/2022, 09/20/2022, Additional history exists CKD PHOS USE SMARTSET 07145 10/24/2024 10/25/2023 Adult Wellness Visit 11/06/2024 11/07/2023, [...] this encounter Medical Devices Implanted Type Area Service Center Supervisor Device Identifier Shelf Expiration Date Model / Serial / Lot Kit Accessory Ams 700 [id number] - [id number] Implanted:Qty : 1 on 03/17/2022 by Trevor Khanna MD at OR [facility] N/A: Scrotum DATAllegro [id number] 01/19/2027 [id number] / / [id number] Rte, Snapcone, Cx.Lgx 0.5cm - [id number] Implanted:Qty : 1 on 03/17/2022 by Trevor Khanna MD at OR [facility] N/A: Penis InsideView : UROLOGY [id number] 10/20/2026 [id number] / / [id number] Cx Precon Ms 21cm Ps 12cm - [id number] Implanted:Qty : 1 on 03/17/2022 by Trevor Khanna MD at OR [facility] N/A: Penis DATAllegro [id number] 08/26/2023 [id number] / / [id number] Resvr Conceal [id number] - [id number] Implanted:Qty : 1 on 03/17/2022 by Trevor Khanna MD at OR [facility] N/A: Pelvis DATAllegro [id number] 11/17/2023 [id number] / / [id number] documented as of this encounter Visit Diagnoses Diagnosis HTN, goal below 140/90- Primary Unspecified essential hypertension Dilated aortic root (HCC) Thoracic aortic ectasia documented in this encounter Advance Directives * Full Code (Latest Code Status on File) Date Activated Date Inactivated Comments 03/17/2022 10:18 AM 03/18/2022 2:38 PM Question Answer Comments Discussion of Advance Directives occurred with: Not Discussed Care Teams Caramel Cutter Hand Relationship Specialty Start Date End Date Osito Alfaro MD [address] [place] [address] PCP - General Family Medicine 09/01/21 documented as of this encounter
--- OUTSIDE RECORDS SUMMARY | 2024-05-23 15:12 | External Medical Summary | Summary of Care ---
Author Name Unknown Organization [facility] Address [address] [place] [address] Phone [phone] Care Team Providers Care Senior Counsel Commercial Name Role Phone Osito Alfaro MD Primary Care Provider [phone] Reason for Visit * Reason Onset Date Comments Appointment 05/07/2024 Encounter Details Date Type Department Care Team (Late st Contact Info) Description 05/07/2024 Telephone Urology Bette Guardado [address] [facility] [address] [place] [address] Osmany White Jr., MD [address] [place] [address] Appointment Allergies Active Allergy Reactions Criticality Noted Date Comments Cat Dander 09/01/2016 Warfarin Hives 09/01/2016 Dust Cough 03/16/2009 Mold Cough 03/16/2009 Other Allergy (See Comments) 04/04/2022 Grass - sneezing/sinus Pollen Cough 03/16/2009 Also grass documented as of this encounter (statuses as of 05/07/2024) Medications Medication Sig Dispensed Refills Start Date [...] 12/25/2023 Active Additional Information Patient taking differently: [id number], Reported on 03/18/2024 Fluticasone Propionate 50 MCG/ACT [...] Nasal Solution (Astelin)Indicatio ns:Chronic rhinitis Administer 1 Wilson into nostril in the morning and 1 Wilson before bedtime. 90 mL 3 04/30/2024 Active Lisinopril 40 MG Oral TabletIndications: HTN, goal below 140/90 Take 1 Tablet by mouth in the morning. 90 Tablet 3 04/30/2024 Active documented as of this encounter (statuses as of 05/07/2024) Active Problems Problem Noted Date Diagnosed Date [...] as of this encounter (statuses as of 05/07/2024) Resolved Problems Problem Noted Date Diagnosed Date [...] as of this encounter (statuses as of 05/07/2024) Immunizations Name Administration Dates Next Due COVID-19 [...] encounter Miscellaneous Notes * Telephone Encounter - Lakshmi Baltazar LPN - 05/07/2024 3:53 PM EDT Myg sent documented in this encounter Plan of Treatment Upcoming Encounters Date Type Department Care Team (Late st Contact Info) Description 05/08/2024 8:00 AM EDT Nutrition Services [address] [place] [address] Keira Vickers, RDN [address] [facility] [place], [place] [address] 05/14/2024 8:00 AM EDT Laboratory Laboratory, [place] [address] [place] [facility] [place] [id number] [facility] [address] [place] [facility] [place] [address] 05/21/2024 2:45 PM EDT Office Visit Urology [place] [address] [facility] Greg [address] [place] [address] Osmany White Jr., MD [address] [facility] [place] [address] 07/16/2024 2:30 PM EST Office Visit Cardiology, [facility] [address] [place] [address] Fifi Gil CRNP [address] [facility] [place] [address] 11/04/2024 10:20 AM EDT Office Visit Family Practice, [place] [address] [facility] [id number] Osito Alfaro MD [address] [place] [address] 11/11/2024 9:00 AM EDT Nurse Only Ancillary Department, [place] [address] [facility] [id number] [place], Nurse [facility] [address] [facility] [address] Scheduled Procedures Name Priority Associated Diagnoses Date/Ti [...] 1968 (Acute Illness) CKD HGB USE SMARTSET 67591 10/24/202410/24, 09/20/2022, 09/20/2022, Additional history exists CKD PHOS USE SMARTSET 94075 10/24/2024 10/25/2023 Adult Wellness Visit 11/06/2024 11/07/2023, [...] this encounter Medical Devices Implanted Type Area Metal Refiner Device Identifier Shelf Expiration Date Model / Serial / Lot Kit Accessory Ams 700 [id number] - [id number] Implanted:Qty : 1 on 03/17/2022 by Trevor Khanna MD at [place] [facility] N/A: Scrotum [employer]aven [id number] 01/19/2027 [id number] / / [id number] Rte, Snapcone, Cx.Lgx 0.5cm - [id number] Implanted:Qty : 1 on 03/17/2022 by Trevor Khanna MD at [place] [facility] N/A: Penis [employer] : UROLOGY [id number] 10/20/2026 [id number] / / [id number] Cx Precon Ms 21cm Ps 12cm - [id number] Implanted:Qty : 1 on 03/17/2022 by Trevor Khanna MD at [place] [facility] N/A: Penis [employer] [id number] 08/26/2023 [id number] / / [id number] Resvr Conceal [id number] - [id number] Implanted:Qty : 1 on 03/17/2022 by Trevor Khanna MD at [place] [facility] N/A: Pelvis [employer] [id number] 11/17/2023 [id number] / / [id number] documented as of this encounter Advance Directives * Full Code (Latest Code Status on File) Date Activated Date Inactivated Comments 03/17/2022 10:18 AM 03/18/2022 2:38 PM Question Answer Comments Discussion of Advance Directives occurred with: Not Discussed Care Teams Senior Counsel Commercial Relationship Specialty Start Date End Date Osito Alfaro MD [address] [place] [address] PCP - General Family Medicine 09/01/21 documented as of this encounter
--- OUTSIDE RECORDS SUMMARY | 2024-05-23 15:13 | External Medical Summary | Summary of Care ---
Author Name Unknown Organization [facility] Address [address] [facility] [place] [address] Phone [phone] Care Team Providers Care Labor Commissioner Name Role Phone Osito Alfaro MD Primary Care Provider [phone] Reason for Visit * Reason Onset Date Comments Patient Instructions 03/18/2024 colonoscopy Encounter Details Date Type Department Care Team (Late st Contact Info) Description 03/18/2024 Telephone OR [facility], Operating Room [facility] [address] [facility] [place] [phone] Patricia Neal, RN Patient Instructions (colonoscopy) Allergies Active Allergy Reactions Criticality Noted Date Comments Cat Dander 09/01/2016 Warfarin Hives 09/01/2016 Dust Cough 03/16/2009 Mold Cough 03/16/2009 Other Allergy (See Comments) 04/04/2022 Grass - sneezing/sinus Pollen Cough 03/16/2009 Also grass documented as of this encounter (statuses as of 03/18/2024) Medications Medication Sig Dispensed Refills Start Date [...] being needed 60 Tablet 3 01/12/2023 Active Omeprazole 20 MG Oral Capsule Delayed Release (PriLOSEC) Take 1 capsule by mouth in the morning 90 Capsule 1 07/28/2023 Active Escitalopram Oxalate 10 MG Oral Tablet (Lexapro)Indicatio ns:Generalized anxiety disorder Take 1 Tablet by mouth in the morning. 30 Tablet 5 09/08/2023 Active Rosuvastatin Calcium 10 MG Oral Tablet (Crestor)Indicatio ns:Dyslipidemia, goal LDL below 70 TAKE 1 TABLET BY MOUTH ONCE DAILY IN THE EVENING 90 Tablet 3 12/25/2023 Active Additional Information Patient taking differently: [id number], Reported on 03/18/2024 Lisinopril 20 MG Oral [...] Nasal Solution (Astelin)Indicatio ns:Chronic rhinitis Administer 1 Yoder into nostril in the morning and 1 Yoder before bedtime. 90 mL 1 02/21/2024 Active [...] the evening 135 Tablet 1 03/04/2024 Active documented as of this encounter (statuses as of 03/18/2024) Active Problems Problem Noted Date Diagnosed Date [...] as of this encounter (statuses as of 03/18/2024) Resolved Problems Problem Noted Date Diagnosed Date Resolved Date Prediabetes 01/16/2023 02/28/2024 Overview: Per Prediabetes protocol documented as of this encounter (statuses as of 03/18/2024) Immunizations Name Administration Dates Next Due COVID-19 [...] Upcoming Encounters Date Type Department Care Team (Latest Contact Info) Description 03/29/2024 2:00 PM EDT Hospital Encounter ENDO [facility], Endoscopy Room [facility] [address] [place] [phone] Padmaja Patel, DO [address] [place] [address] 03/29/2024 2:00 PM EDT - 03/29/2024 2:30 PM EDT Surgery ENDO [facility], Endoscopy Room [facility] [address] [place] [phone] Padmaja Patel, DO [address] [place] [address] COLONOSCOPY FLEXIBLE PROXIMAL DIAGNOSTIC 04/30/2024 9:40 AM EDT [facility] [address] [facility] [phone] Osito [facility]far[facility] MD [address] [facility] [address] 05/08/2024 8:00 AM EDT Nutrition Services Nutrition, [facility] [address] [place] [address] Keira Vickers, RDN [address] [place] [address] 11/11/2024 9:00 AM EDT Nurse Only Ancillary Department, [place] [address] [facility] [place] [address] [place], Nurse Annual [facility] [address] [place] [address] Scheduled Procedures Name Priority Associated Diagnoses Date/Ti me COLONOSCOPY FLEXIBLE PROXIMAL DIAGNOSTIC Recall History of colon polyps Celiac disease 03/29/2024 2:00 PM EDT Health Maintenance Due Date Last Done Comments Diabetic Eye Exam 1966 Diabetic Foot Exam 1968 Hepatitis C Screening 1968 COVID-19 Vaccine ( - 2022- season) 2023 08/18/2021 Zoster Vaccines (2 of 2) 12/20/2023 10/25/2023 Influenza Vaccine (FLU shot) (#1) 2024 06/13/2023, 05/21/2022, 06/29/2020, Additional history exists GFR 04/26/2024 10/25/2023, 11/0 02/2023, 03/15/2023, Additional history exists HbA1c 04/26/2024 10/25/2023, 11/0 02/2023, 03/15/2023, Additional history exists Albumin/Creatinine Ratio 06/13/2024 06/13/2023, 12/05 CKD HGB USE SMARTSET 00041 10/24/202410/24, 09/20/2022, 09/20/2022, Additional history exists CKD PHOS USE SMARTSET 26256 10/24/2024 10/25/2023 Adult Wellness Visit 11/06/2024 11/07/2023, 11/01/19 23 Depression Monitoring 11/06/2024 11/07/2023 Colonoscopy 08/17/2027 08/17/2022, 08/07, 07/24/2014, Additional history exists DTaP,Tdap,and Td Vaccines (3 - Td or Tdap) 10/18/2028 10/18/2018, 03/24/2009 RETIRED - COLONOSCOPY-EVERY 5 YRS AGES 18-100 Discontinued 08/17/2022, 08/17/2022, 07/24/2014, Additional history exists Pneumococcal Vaccine: 65+ Years Completed 09/20/2022, 10/18/2018 HPV (Gardasil) Vaccine Aged Out No lo nger eligible based on patient's age to complete this topic Hepatitis B Vaccine Aged Out No longe r eligible based on patient's age to complete this topic MENINGOCOCCAL (MENACTRA/MENVEO) Aged Out No longer eligible based on patient's age to complete this topic documented as of this encounter Medical Devices Implanted Type Area Manager Entry Device Identifier Shelf Expiration Date Model / Serial / Lot Kit Accessory Ams 700 [id number] - [id number] Implanted:Qty : 1 on 03/17/2022 by Trevor Khanna MD at [place] [facility] N/A: Scrotum WikiWand [id number] 01/19/2027 [id number] / / [id number] Rte, Snapcone, Cx.Lgx 0.5cm - [id number] Implanted:Qty : 1 on 03/17/2022 by Trevor Khanna MD at [place] [facility] N/A: Penis [employer] : UROLOGY [id number] 10/20/2026 [id number] / / [id number] Cx Precon Ms 21cm Ps 12cm - [id number] Implanted:Qty : 1 on 03/17/2022 by Trevor Khanna MD at [place] [facility] N/A: Penis [employer]and [id number] 08/26/2023 [id number] / / [id number] Resvr Conceal 057037-51 - [id number] Implanted:Qty : 1 on 03/17/2022 by Trevor Khanna MD at [place] [facility] N/A: Pelvis [employer]Wand [id number] 11/17/2023 [id number] / / [id number] documented as of this encounter Advance Directives * Full Code (Latest Code Status on File) Date Activated Date Inactivated Comments 03/17/2022 10:18 AM 03/18/2022 2:38 PM Question Answer Comments Discussion of Advance Directives occurred with: Not Discussed Care Teams Labor Commissioner Relationship Specialty Start Date End Date Oisto Alfaro MD [address] [place] [address] PCP - General Family Medicine 09/01/21 documented as of this encounter
--- OUTSIDE RECORDS SUMMARY | 2024-05-23 15:13 | External Medical Summary | Summary of Care ---
Author Name Unknown Organization [facility] Address [address] [place] [address] Phone [phone] Care Team Providers Care Hardscape Foreman Name Role Phone Osito Alfaro MD Primary Care Provider [phone] Reason for Visit * Reason Onset Date Comments Medication Refill 03/01/2024 Encounter Details Date Type Department Care Team (Late st Contact Info) Description 03/01/2024 Refill Nephrology, [facility] [address] [place] [address] Ruby Reyes MD [address] [place] [address] Allergies Active Allergy Reactions Criticality Noted Date Comments Cat Dander 09/01/2016 Warfarin Hives 09/01/2016 Dust Cough 03/16/2009 Mold Cough 03/16/2009 Other Allergy (See Comments) 04/04/2022 Grass - sneezing/sinus Pollen Cough 03/16/2009 Also grass documented as of this encounter (statuses as of 03/06/2024) Medications Medication Sig Dispensed Refills Start Date End Date Status LORATADINE 10 MG PO CAPS daily Active CENTRUM SILVER PO TABS daily Active Melatonin 10 MG Oral Tablet Take 1 Tablet by mouth at bedtime. 09/23/2021 Active Mirabegron ER 50 MG Oral Tablet Extended Release 24 Hour (Myrbetriq) Take by mouth 1 Tablet in the morning. 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 [...] THE EVENING 90 Tablet 3 12/25/2023 Active Lisinopril 20 MG Oral Tablet (Prinivil) Take [...] Nasal Solution (Astelin)Indicat ions:Chronic rhinitis Administer 1 Morris into nostril in the morning and 1 Morris before bedtime. 90 mL 1 02/21/2024 Active Montelukast Sodium 10 MG Oral Tablet (Singulair) Take 1 Tablet by mouth in the morning. 30 Tablet 02/21/2024 Active Azithromycin 250 MG Oral Tablet (Zithromax Z-Orlin) Take two tablets by mouth on first day, then 1 tablet daily until gone 6 Tablet 02/21/2024 Active Colestipol HCl 1 GM Oral Tablet (Colestid)Indica tions:Diarrhea of presumed infectious origin Take 2 Tablets by mouth in the morning. 60 Tablet 5 02/29/2024 Active Doxazosin Mesylate 4 MG Oral Tablet (Cardura) Take 1 Tablet by mouth at bedtime. 90 Tablet 3 03/06/2024 Active Metoprolol Succinate ER 100 MG Oral Tablet Extended Release 24 Hour (toPROL XL) 1 tablet in the morning 1/2 in the evening 135 Tablet 3 01/17/2023 4 Discontinue d(Refill) Doxazosin Mesylate 4 MG Oral Tablet (Cardura) Take 1 Tablet by mouth at bedtime. 90 Tablet 3 02/20/2023 4 Discontinue d(Refill) documented as of this encounter (statuses as of 03/06/2024) Active Problems Problem Noted Date Diagnosed Date [...] as of this encounter (statuses as of 03/06/2024) Resolved Problems Problem Noted Date Diagnosed Date Resolved Date Prediabetes 01/16/2023 02/28/2024 Overview: Per Prediabetes protocol documented as of this encounter (statuses as of 03/06/2024) Immunizations Name Administration Dates Next Due COVID-19 mRNA, LNP-s, No Pre serve, 2-Dose Series (Real Life Plus) 08/18/2021 Pneumococcal Conjugate Vacc, 13 Valent (Prevnar) [...] encounter Miscellaneous Notes * Telephone Encounter - Ruby Reyes MD - 03/06/2024 4:51 PM EDTSigned Prescriptions: Disp Refills Doxazosin Mesylate 4 MG Oral Tablet (Cardu*90 Tab*3 Sig: Take 1 Tablet by mouth at bedtime. Authorizing Provider: RUBY REYES * Telephone Encounter - Cata Cevallos RN - 03/04/2024 9:17 AM EDTPending Prescriptions: Disp Refills Doxazosin Mesylate 4 MG Oral Tablet (Cardu*90 Tab*3 Sig: Take 1 Tablet by mouth at bedtime. * Telephone Encounter - Cata Cevallos RN - 03/04/2024 9:15 AM EDT Prescription request received from pharmacy pending. Please authorize. Last OV 09/06/23 Next appointment due August 2024. documented in this encounter Plan of Treatment Upcoming Encounters Date Type Department Care Team (Late st Contact Info) Description 04/30/2024 9:40 AM EDT Office Visit [address] [phone] Osito Alfaro MD [address] [place] [address] 05/08/2024 8:00 AM EDT [facility] [place] [address] Keira Vickers RDN [address] [facility] [place] [address] 11/11/2024 9:00 AM EDT Nurse Only Ancillary Department, [address] [address] [place], Nurse Annual Wellness [address] [place] [address] Scheduled Procedures Name Priority Associated Diagnoses Date/Ti me COLONOSCOPY FLEXIBLE PROXIMAL DIAGNOSTIC Recall History of colon polyps Health Maintenance Due Date Last Done Comments Diabetic Eye Exam 1966 Diabetic Foot Exam 1966 Hepatitis C Screening 1966 COVID-19 Vaccine (2 - 2022- season) 2023 08/18/2021 Zoster Vaccines (2 of 2) 12/20/2023 10/25/2023 Influenza Vaccine (FLU shot) (#1) 2024 06/13/2023, 05/21/2022, 06/29/2020, Additional history exists GFR 04/26/2024 10/25/2023, 110 02/2023, 03/15/2023, Additional history exists HbA1c 04/26/2024 10/25/2023, 110 02/2023, 03/15/2023, Additional history exists Albumin/Creatinine Ratio 06/13/2024 06/13/2023, 12/05 CKD HGB USE SMARTSET 56991 10/24/202410/24, 09/20/2022, 09/20/2022, Additional history exists CKD PHOS USE SMARTSET 92876 10/24/2024 10/25/2023 Depression Monitoring 11/06/2024 11/07/2023 Colonoscopy 08/17/2027 08/17/2022, 08/07, 07/24/2014, Additional history exists DTaP,Tdap,and Td Vaccines (3 - Td or Tdap) 10/18/2028 10/18/2018, 03/24/2009 *BASELINE EKG FOR HTN Completed 03/02/2022 RETIRED - COLONOSCOPY-EVERY 5 YRS AGES 18-100 [...] this encounter Medical Devices Implanted Type Area Clinical Sciences Professor Device Identifier Shelf Expiration Date Model / Serial / Lot Kit Accessory Ams 700 [id number] - [id number] Implanted:Qty : 1 on 03/17/2022 by Trevor Khanna MD at OR [facility] N/A: Scrotum Zipano [id number] 01/19/2027 [id number] / / [id number] Rte, Snapcone, Cx.Lgx 0.5cm - [id number] Implanted:Qty : 1 on 03/17/2022 by Trevor Khanna MD at OR [facility] [place] N/A: Penis [employer] : UROLOGY [id number] 10/20/2026 [id number] / / [id number] Cx Precon Ms 21cm Ps 12cm - [id number] Implanted:Qty : 1 on 03/17/2022 by Trevor Khanna MD at OR [facility] [place] N/A: Penis Zipano [id number] 08/26/2023 [id number] / / [id number] Resvr Conceal [id number] - [id number] Implanted:Qty : 1 on 03/17/2022 by Trevor Khanna MD at OR [facility] [place] N/A: Pelvis Zipano [id number] 11/17/2023 [id number] / / [id number] documented as of this encounter Advance Directives * Full Code (Latest Code Status on File) Date Activated Date Inactivated Comments 03/17/2022 10:18 AM 03/18/2022 2:38 PM Question Answer Comments Discussion of Advance Directives occurred with: Not Discussed Care Teams Hardscape Foreman Relationship Specialty Start Date End Date Oisto Alfaro MD [address] [place] [address] PCP - General Family Medicine 09/01/21 documented as of this encounter
--- OUTSIDE RECORDS SUMMARY | 2024-05-23 15:13 | External Medical Summary ---
Author Name Unknown Address Unknown Organization : Laboratory Report Ordering Provider Test Date Status CARIDAD KEENAN 03/29/2024 13:43:06 Final Observation Date Value Abnormality Reference (Units ) Status Glucose Point of Care 03/29/2024 13:43:06 125 Above high normal 70-120 (mg/dL) Final Performing Location
--- OUTSIDE RECORDS SUMMARY | 2024-05-23 15:13 | External Medical Summary | Summary of Care ---
Author Name Unknown Organization [facility] Address [address] [place] [address] Phone [phone] Care Team Providers Care Spinneret Cleaner Name Role Phone Osito Alfaro MD Primary Care Provider [phone] Encounter Details Date Type Department Care Team (Late st Contact Info) Description 12/11/2023 Telephone [facility] [address] [place] [facility] [place] [address] Osito Alfaro MD [address] [place] [address] Allergies Active Allergy Reactions Criticality Noted Date Comments Cat Dander 09/01/2016 Warfarin Hives 09/01/2016 Dust Cough 03/16/2009 Mold Cough 03/16/2009 Other Allergy (See Comments) 04/04/2022 Grass - sneezing/sinus Pollen Cough 03/16/2009 Also grass documented as of this encounter (statuses as of 03/11/2024) Medications Medication Sig Dispensed Refills Start Date End Date Status LORATADINE 10 MG PO CAPS daily Active CENTRUM SILVER PO TABS daily Active Melatonin 10 MG Oral Tablet Take 1 Tablet by mouth at bedtime. 2 Active Mirabegron ER 50 MG Oral Tablet Extended Release 24 Hour (Myrbetriq) Take by mouth 1 Tablet in the morning. 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 First 2 weeks- take 1 tab daily 180 Tablet 3 3 Active Sildenafil Citrate 20 MG Oral Tablet (Revatio) TAKE two tablets one HOUR AT LEAST 30 MINUTES PRIOR TO FOOD OR ANY OTHER MEDICATIONS TO being needed 60 Tablet 3 3 Active Omeprazole 20 MG Oral Capsule Delayed Release (PriLOSEC) Take 1 capsule by mouth in the morning 90 Capsule 1 3 Active Escitalopram Oxalate 10 MG Oral Tablet (Lexapro)Indicat ions:Generalized anxiety disorder Take 1 Tablet by mouth in the morning. 30 Tablet 5 4 Active Triamcinolone Acetonide 0.1 % External Ointment (Aristocort)Scarlett cations:Other eczema Apply topically to affected area 2 times a day. To affected area. 80 g 5 3 02/21/20 24 Discontinued Prevagen 10 MG Oral Capsule (Apoaequorin) Take by mouth. 02/21/20 24 Discontinued amLODIPine Besylate 5 MG Oral Tablet (Norvasc) Take 1 Tablet by mouth in the morning. Once daily. 90 Tablet 3 3 02/15/20 24 Discontinued(Ref ill) Lisinopril 20 MG Oral Tablet (Prinivil) Take 1 Tablet by mouth in the morning. 90 Tablet 2 3 01/31/20 24 Discontinued(Ref ill) Metoprolol Succinate ER 100 MG Oral Tablet Extended Release 24 Hour (toPROL XL) 1 tablet in the morning 1/2 in the evening 135 Tablet 3 3 03/01/20 24 Discontinued(Ref ill) Doxazosin Mesylate 4 MG Oral Tablet (Cardura) Take 1 Tablet by mouth at bedtime. 90 Tablet 3 3 03/01/20 24 Discontinued(Ref ill) Lidocaine 5 % External Patch (Lidoderm)Indica tions:Closed fracture of one rib, unspecified laterality, sequela Place 1 Patch over 12 hours topically on the skin daily. 30 Patch 3 02/21/20 24 Discontinued oxyCODONE HCl 5 MG Oral Tablet (Oxy IR)Indications:C losed fracture of one rib with routine healing, unspecified laterality, subsequent encounter Take 1 Tablet by mouth every 6 hours as needed for Pain, Severe. 20 Tablet 3 02/21/20 24 Discontinued Fluticasone Propionate 50 MCG/ACT Nasal Suspension (Flonase)Indicat ions:Chronic rhinitis Administer 2 Sprays into each nostril in the morning. 16 g 5 4 01/31/20 24 Discontinued(Ref ill) Azelastine HCl 0.1 % Nasal Solution (Astelin)Indicat ions:Chronic rhinitis Administer 1 [place] into nostril in the morning and 1 [place] before bedtime. 30 mL 11 4 02/21/20 24 Discontinued(Ref ill) documented as of this encounter (statuses as of 03/11/2024) Active Problems Problem Noted Date Diagnosed Date [...] as of this encounter (statuses as of 03/11/2024) Resolved Problems Problem Noted Date Diagnosed Date Resolved Date Prediabetes 01/16/2023 02/28/2024 Overview: Per Prediabetes protocol documented as of this encounter (statuses as of 03/11/2024) Immunizations Name Administration Dates Next Due COVID-19 [...] Description 04/30/2024 9:40 AM EDT Office Visit [facility] [address] [facility] [place] [phone] Osito Alfaro MD [address] [facility] [place] [address] 05/08/2024 8:00 AM EDT Nutrition Services Nutrition, [facility] [address] [facility] [place] [address] Keira Vickers, JOSEN [address] [place] [address] 11/11/2024 9:00 AM EDT Nurse Only Ancillary Department, [place] [address] [place] [address] [place], Nurse Annual Well[facility] [address] [place] [address] Scheduled Procedures Name Priority Associated Diagnoses Date/Ti [...] 06/13/2024 06/13/2023, 12/05 CKD HGB USE SMARTSET 33519 10/24/202410/24, 09/20/2022, 09/20/2022, Additional history exists CKD PHOS USE SMARTSET 30408 10/24/2024 10/25/2023 Depression Monitoring 11/06/2024 11/07/2023 Colonoscopy [...] this encounter Medical Devices Implanted Type Area Cash Applications Analyst Device Identifier Shelf Expiration Date Model / Serial / Lot Kit Accessory Ams 700 [id number] - [id number] Implanted:Qty : 1 on 03/17/2022 by Trevor Khanna MD at OR [place] N/A: Scrotum Zesty [id number] 01/19/2027 [id number] / / [id number] Rte, Snapcone, Cx.Lgx 0.5cm - [id number] Implanted:Qty : 1 on 03/17/2022 by Trevor Khanna MD at OR [place] N/A: Penis [employer] : UROLOGY [id number] 10/20/2026 [id number] / / [id number] Cx Precon Ms 21cm Ps 12cm - [id number] Implanted:Qty : 1 on 03/17/2022 by Trevor Khanna MD at OR [place] N/A: Penis [employer]esty [id number] 08/26/2023 [id number] / / [id number] Resvr Conceal [id number] - [id number] Implanted:Qty : 1 on 03/17/2022 by Trevor Khanna MD at OR [place] N/A: Pelvis [employer]esty [id number] 11/17/2023 [id number] / / [id number] documented as of this encounter Additional Health Concerns Infection Onset Date Last Indicated Resolved Time C. difficile Rule-Out 02/27/2024 02/27/20242023 11:18 PM EDT Gastrointestinal Rule-Out 02/27/2024 02/27/2024 10:11 AM EDT documented as of this encounter Advance Directives * Full Code (Latest Code Status on File) Date Activated Date Inactivated Comments 03/17/2022 10:18 AM 03/18/2022 2:38 PM Question Answer Comments Discussion of Advance Directives occurred with: Not Discussed Care Teams Spinneret Cleaner Relationship Specialty Start Date End Date Osito Alfaro MD [address] [place] [address] PCP - General Family Medicine 09/01/21 documented as of this encounter
--- OUTSIDE RECORDS SUMMARY | 2024-05-23 15:13 | External Medical Summary | Summary of Care ---
Author Name Unknown Organization [facility] Address [address] [facility] [address] Phone [phone] Care Team Providers Care Change Analyst Name Role Phone Osito Alfaro MD Primary Care Provider [phone] Reason for Visit * Auth/Cert Specialty Diagnoses / Procedures Referred By Daryl t Referred To Contact Diagnoses History of colon polyps Celiac disease History of colon polyps [Z86.010] Celiac disease [K90.0] Procedures COLONOSCOPY, DIAGNOSTIC (RECTUM) COLONOSCOPY FLEXIBLE PROXIMAL DIAGNOSTIC Padmaja Patel DO [address] [place] [address] [facility] [address] [place] [address] Referral ID Status Reason Start Date Expiration Date Visits Re quested Visits Authorized [id number] Encounter Details Date Type Department Care Team (Latest Contact Info) Description 03/29/2024 1:09 PM EDT - 03/29/2024 3:32 PM EDT Hospital Encounter [facility], Endoscopy [facility] [address] [place] [address] Padmaja Patel DO [address] [place] [address] Various: GICOLON,UGI Discharge Disposition: Home - Self Care Allergies Active Allergy Reactions Criticality Noted Date Comments Cat Dander 09/01/2016 Warfarin Hives 09/01/2016 Dust Cough 03/16/2009 Mold Cough 03/16/2009 Other Allergy (See Comments) 04/04/2022 Grass - sneezing/sinus Pollen Cough 03/16/2009 Also grass documented as of this encounter (statuses as of 03/30/2024) Medications Medication Sig Dispensed Refills Start Date [...] being needed 60 Tablet 3 01/12/2023 Active Escitalopram Oxalate 10 MG Oral Tablet (Lexapro)Indicat ions:Generalized anxiety disorder Take 1 Tablet by mouth in the morning. 30 Tablet 5 09/08/2023 Active Rosuvastatin Calcium 10 MG Oral Tablet (Crestor)Indicat ions:Dyslipidemi a, goal LDL below 70 TAKE 1 TABLET BY MOUTH ONCE DAILY IN THE EVENING 90 Tablet 3 12/25/2023 Active Additional Information Patient taking differently: [id number], Reported on 03/18/2024 Lisinopril 20 MG Oral [...] Nasal Solution (Astelin)Indicat ions:Chronic rhinitis Administer 1 Bernard into nostril in the morning and 1 Bernard before bedtime. 90 mL 1 02/21/2024 Active [...] the morning. 90 Capsule 1 03/29/2024 Active Mirabegron ER 50 MG Oral Tablet Extended Release 24 Hour (Myrbetriq) Take by mouth 1 Tablet in the morning. 30 Tablet 3 05/16/2022 4 Discontinued Omeprazole 20 MG Oral Capsule Delayed Release (PriLOSEC) Take 1 capsule by mouth in the morning 90 Capsule 1 07/28/2023 4 Discontinued Montelukast Sodium 10 MG Oral Tablet (Singulair) Take 1 Tablet by mouth in the morning. 30 Tablet 02/21/2024 4 Discontinued Azithromycin 250 MG Oral Tablet (Zithromax Z-Orlin) Take two tablets by mouth on first day, then 1 tablet daily until gone 6 Tablet 02/21/2024 4 Discontinued Doxazosin Mesylate 4 MG Oral Tablet (Cardura) Take 1 Tablet by mouth at bedtime. 90 Tablet 3 03/06/2024 4 Discontinued documented as of this encounter (statuses as of 03/30/2024) Active Problems Problem Noted Date Diagnosed Date [...] as of this encounter (statuses as of 03/30/2024) Resolved Problems Problem Noted Date Diagnosed Date Resolved Date Prediabetes 01/16/2023 02/28/2024 Overview: Per Prediabetes protocol documented as of this encounter (statuses as of 03/30/2024) Immunizations Name Administration Dates Next Due COVID-19 [...] Sign Reading Time Taken Comments Blood Pressure 111/75 03/29/2024 2:47 PM EDT Pulse 63 03/29/2024 2:47 PM EDT Temperature 36.6 C (97.8 F) 03/29/2024 2:47 PM ED T Respiratory Rate 14 03/29/2024 2:47 PM EDT Oxygen Saturation 95% 03/29/2024 2:47 PM EDT Inhaled Oxygen Concentration - - Weight 102.1 kg (225 lb) 03/29/2024 1:40 PM EDT Height 175.3 cm (5' 9.02") 03/29/2024 1:40 PM ED T Body Mass Index 33.21 03/29/2024 1:40 PM EDT documented in this [...] No 03/17/2022 documented as of this encounter H&P Notes * Padmaja Patel DO - 03/29/2024 1:41 PM EDT Endoscopy Pre-Procedure Assessment Name: Clovis Bradford Date: 03/29/2024 Time: 1:41 PM Procedure(s): Colonoscopy; with Indication(s) of chronic diarrhea Upper GI Endoscopy; with Indication(s) of diarrhea with a positive gliadin antibody Endoscopy Pre-Procedure Assessment: Prior to the procedure, the patient is identified. The patient's history, medications and allergieshave been reviewed. The patient is competent. The risks and benefits of the proposed procedure and the planned sedation have been discussed with the patient. All questions have been answered and informed consent for the procedure has been obtained. Prior to Admission medications Medication Sig Last Dose Discont. citalopram 5 MG OR TABS Take by mouth at bedtime. 03/28/2024 Potassium Gluconate 595 (99 K) MG Oral Tablet Take by mouth at bedtime. 03/28/2024 Tamsulosin HCl 0.4 MG Oral Capsule (Flomax) Take 1 Capsule by mouth in the morning. Take 2 tabs every evening . 03/29/2024 Metoprolol Succinate ER 100 MG Oral Tablet Extended Release 24 Hour (toPROL XL) 1 tablet in the morning 1/2 in the evening 03/28/2024 Colestipol HCl 1 GM Oral Tablet (Colestid) Take 2 Tablets by mouth in the morning. 03/29/2024 Azelastine HCl 0.1 % Nasal Solution (Astelin) Administer 1 Bernard into nostril in the morning and 1 Bernard before bedtime. 03/29/2024 amLODIPine Besylate 5 MG Oral Tablet (Norvasc) Take 1 Tablet by mouth in the morning. Once daily. 03/29/2024 Fluticasone Propionate 50 MCG/ACT Nasal Suspension (Flonase) Administer 2 Sprays into each nostril in the morning. Past Month Lisinopril 20 MG Oral Tablet (Prinivil) Take 1 Tablet by mouth in the morning. 03/29/2024 Rosuvastatin Calcium 10 MG Oral Tablet (Crestor) TAKE 1 TABLET BY MOUTH ONCE DAILY IN THE EVENING Patient taking differently: every morning. 03/28/2024 Escitalopram Oxalate 10 MG Oral Tablet (Lexapro) Take 1 Tablet by mouth in the morning. 03/28/2024 Omeprazole 20 MG Oral Capsule Delayed Release (PriLOSEC) Take 1 capsule by mouth in the morning 03/29/2024 Sildenafil Citrate 20 MG Oral Tablet (Revatio) TAKE two tablets one HOUR AT LEAST 30 MINUTES PRIOR TO FOOD OR ANY OTHER MEDICATIONS TO being needed Unknown metFORMIN HCl ER 500 MG Oral Tablet Extended Release 24 Hour (Glucophage XR) Take 2 tabs with breakfast daily. First 2 weeks- take 1 tab daily 03/28/2024 Melatonin 10 MG Oral Tablet Take 1 Tablet by mouth at bedtime. 03/28/2024 CENTRUM SILVER PO TABS daily 03/28/2024 LORATADINE 10 MG PO CAPS Take by mouth at bedtime. 03/28/2024 Review of patient's allergies indicates: Allergen Reactions Cat Dander Coumadin [Warfarin] Hives Dust Cough Mold Cough Other Allergy (See Comments) Grass - sneezing/sinus Pollen Cough Also grass Ht 1.753 m (5' 9") | Wt 102.1 kg (225 lb) | BMI 33.23 kg/m | BSA 2.23 m Physical Exam: Mental Status Examination: alert and oriented. Airway Examination: normal oropharyngeal airway and neck mobility. Respiratory Examination: clear to auscultation. CV Examination: regular rate and rhythm. ASA Grade: III - A patient with severe systemic disease. Abdomen: negative Latest Reference Range & Units 02/27/24 09:01 Clostridium difficile Result Negative Negative. No C. 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 Stool Consistency Liquid OVA AND PARASITES, CONCENTRATE AND PERMANENT SMEAR Rpt GASTROINTESTINAL PATHOGEN PANEL, STOOL Rpt Campylobacter group by PCR Negative Negative Norovirus by PCR Negative Negative Rotavirus by PCR Negative Negative Salmonella species by PCR Negative Negative Shiga Toxin 1 Gene by PCR Negative Negative Shiga Toxin 2 Gene by PCR Negative Negative Shigella species by PCR Negative Negative Vibrio group by PCR Negative Negative Yersinia enterocolitica by PCR Negative Negative Rpt: View report in Results Review for more information Latest Reference Range & Units 10/25/23 10:51 Sodium 135 - 146 mmol/L 141 Potassium 3.5 - 5.1 mmol/L 4.7 Chloride 98 - 107 mmol/L 105 CO2 22 - 32 mmol/L 28 BUN 6 - 20 mg/dL 15 Creatinine 0.6 - 1.2 mg/dL 1.2 Estimated Glomerular Filtration Rate >=60 mL/min 62 Anion Gap 7 - 15 mmol/L 8 Glucose 70 - 120 mg/dL 109 Calcium 8.4 - 10.2 mg/dL 9.7 Phosphorus 2.5 - 4.8 mg/dL 3.5 Estimated Average Glucose <126 mg/dL 137 (H) Hemoglobin A1C 4.0 - 5.6 % 6.4 (H) (H): Data is abnormally high This patient has undergone a preprocedural evaluation. A determination has been made to proceed with the planned procedure under [facility] procedural guidelines and the [facility] Non-Emergent, Elective Medical Services and Treatment Recommendations (published on 11-12-19). The community and hospital prevalence of COVID-19 has been discussed as well as this patient's specific risks associated with SARS-CoV-19 infection. Based upon the clinical acuity and patient-specific care considerations, this procedure is deemed a Tier II - Intermediate acuity treatment or service with either progression or the threat of progressive disease related to the delay in treatment. Not providing the service has the potential for increasing morbidity or mortality. After reviewing the risks and benefits, the patient is deemed in satisfactory condition to undergo the procedure. The anesthesia plan is to use general anesthesia. We have discussed the risks and benefits of upper endoscopy to include bleeding, infection, perforation, discomfort, aspiration and need for follow-up studies. I have discussed the risks of colonoscopy to include bleeding, infection, perforation, pain, missedpolyps, and need for follow-up studies. Padmaja Patel DO 03/29/2024 documented in this encounter Procedure Notes * Loan Sterling PA-C - 03/29/2024 1:50 PM EDTAssociated Order(s): UPPER GI ENDOSCOPY [facility] Patient Name: Clovis Bradford Procedure Date: 03/29/2024 1:50 PM Date of : 1950 Admit Type: Outpatient Note Status: Finalized Date of : 1950 Admit Type: Outpatient Age: 73 Room: [facility] 3 Gender: Male Note Status: Finalized Procedure: Upper GI endoscopy Indications: Diarrhea Providers: Padmaaj Patel DO (Doctor) Referring MD: Osito Alfaro MD (Referring MD), [place] (Referring MD) Medicines: General Anesthesia Complications: No immediate complications. Estimated blood loss: Minimal. Procedure: Pre-Anesthesia Assessment: - Prior to the procedure, a History and Physical was performed, and patient medications, allergies and sensitivities were reviewed. The patient's tolerance of previous anesthesia was reviewed. - The risks and benefits of the procedure and the sedation options and risks were discussed with the patient. All questions were answered and informed consent was obtained. - Patient identification and proposed procedure were verified prior to the procedure by the physician, the nurse and the service delivery supervisor. The procedure was verified in the procedure room. - Pre-procedure physical examination revealed no contraindications to sedation. - ASA Grade Assessment: III - A patient with severe systemic disease. - After reviewing the risks and benefits, the patient was deemed in satisfactory condition to undergo the procedure. - The anesthesia plan was to use general anesthesia. - Immediately prior to administration of medications, the patient was re- assessed for adequacy to receive sedatives. - The heart rate, respiratory rate, oxygen saturations, blood pressure, adequacy of pulmonary ventilation, and response to care were monitored throughout the procedure. - The physical status of the patient was re-assessed after the procedure. After obtaining informed consent, the endoscope was passed under direct vision. All instruments were visually inspected immediately before and after removal from the patient to ensure they are fully intact. Throughout the procedure, the patient's blood pressure, pulse, and oxygen saturations were monitored continuously. The [id number]-[id number] Colonoscope ([id number]) was introduced through the mouth, and advanced to the third part of duodenum. The upper GI endoscopy was accomplished without difficulty. The patient tolerated the procedure well. Findings & Specimens: The upper third of the esophagus and middle third of the esophagus were normal. LA Grade B (one or more mucosal breaks greater than 5 mm, not extending between the tops of two mucosal folds) esophagitis with no bleeding was found at the gastroesophageal junction. Biopsies were taken with a cold forceps for histology. The pathology specimen was placed into Bottle Number 3. Estimated blood loss was minimal. Diffuse mild inflammation characterized by congestion (edema), erythema and granularity was found in the entire examined stomach. Biopsies were taken with a cold forceps for histology. The pathology specimen was placed into Bottle Number 2. Estimated blood loss was minimal. Scattered moderate inflammation characterized by congestion (edema), erosions, erythema and shallow ulcerations was found in the duodenal bulb and in the second portion of the duodenum. Biopsies were taken with a cold forceps for histology. The pathology specimen was placed into Bottle Number 1. Estimated blood loss was minimal. Impression: - Normal upper third of esophagus and middle third of esophagus. - LA Grade B reflux esophagitis with no bleeding. Biopsied. - Gastritis. Biopsied. - Duodenitis. Biopsied. Recommendation: - Perform a colonoscopy today. - Await pathology results. - Use sucralfate tablets 1 gram PO QID. Padmaja Patel DO 03/29/2024 3:04:17 PM This report has been signed electronically. * Loan Sterling PA-C - 03/29/2024 1:46 PM EDTAssociated Order(s): COLONOSCOPY [facility] Patient Name: Clovis Bradford Procedure Date: 03/29/2024 1:46 PM Date of : 1950 Admit Type: Outpatient Note Status: Draft Date of : 1950 Admit Type: Outpatient Age: 73 Room: Endo 3 Gender: Male Note Status: Manager Completions Override Procedure: Colonoscopy Indications: Clinically significant diarrhea of unexplained origin Providers: Padmaja Patel DO (Doctor) Referring MD: Osito Alfaro MD (Referring MD), [place] (Referring MD) Medicines: General Anesthesia Complications: No immediate complications. Estimated blood loss: Minimal. Procedure: Pre-Anesthesia Assessment: - Prior to the procedure, a History and Physical was performed, and patient medications, allergies and sensitivities were reviewed. The patient's tolerance of previous anesthesia was reviewed. - The risks and benefits of the procedure and the sedation options and risks were discussed with the patient. All questions were answered and informed consent was obtained. - Patient identification and proposed procedure were verified prior to the procedure by the physician, the nurse and the service delivery supervisor. The procedure was verified in the procedure room. - Pre-procedure physical examination revealed no contraindications to sedation. - ASA Grade Assessment: III - A patient with severe systemic disease. - After reviewing the risks and benefits, the patient was deemed in satisfactory condition to undergo the procedure. - The anesthesia plan was to use general anesthesia. - Immediately prior to administration of medications, the patient was re- assessed for adequacy to receive sedatives. - The heart rate, respiratory rate, oxygen saturations, blood pressure, adequacy of pulmonary ventilation, and response to care were monitored throughout the procedure. - The physical status of the patient was re-assessed after the procedure. After I obtained informed consent, the scope was passed under direct vision. All instruments were visually inspected immediately before and after removal from the patient to ensure they are fully intact. Throughout the procedure, the patient's blood pressure, pulse, and oxygen saturations were monitored continuously. The [id number] Colonoscope ([id number]) was introduced through the anus and advanced to the terminal ileum. The colonoscopy was performed without difficulty. The patient tolerated the procedure well. The quality of the bowel preparation was adequate to identify polyps 6 mm and larger in size. Findings & Specimens: Hemorrhoids were found on perianal exam. The terminal ileum appeared normal. Normal mucosa was found in the entire colon. Biopsies for histology were taken with a cold forceps from the entire colon for evaluation of microscopic colitis. The pathology specimen was placed into Bottle Number 4. Estimated blood loss was minimal. A 5 mm polyp was found in the descending colon. The polyp was sessile. The polyp was removed with a cold snare. Resection and retrieval were complete. The pathology specimen was placed into Bottle Number 5. Estimated blood loss was minimal. Internal hemorrhoids were found during retroflexion. The hemorrhoids were mild. Multiple small-mouthed diverticula were found in the sigmoid colon. Multiple small localized angioectasias without bleeding were found in the rectum. Impression: - Hemorrhoids found on perianal exam. - The examined portion of the ileum was normal. - Normal mucosa in the entire examined colon. Biopsied. - One 5 mm polyp in the descending colon, removed with a cold snare. Resected and retrieved. - Internal hemorrhoids. - Mild diverticulosis in the sigmoid colon. - Multiple non-bleeding colonic angioectasias consistent with known radiation proctitis. Recommendation: - The patient will be observed post-procedure, until all discharge criteria are met. - Advance diet as tolerated today. - Await pathology results. - Repeat colonoscopy in 3 years for surveillance due to limitations of the bowel prep Padmaja Patel DO 03/29/2024 3:00:27 PM This report has been signed electronically. documented in this encounter Nursing Notes * Katelyn Soto RN - 03/29/2024 3:31 PM EDT Patient is alert, pain free, passing flatus and tolerating po fluids prior to discharge. Patient has been visited by Dr. Padmaja Patel. Patient has received and demonstrates understanding of discharge instructions. Patient is transported via w/c to private auto accompanied by endo staff. * Katelyn Soto RN - 03/29/2024 3:00 PM EDT Waiting for Dr. Patel rounds. * Katelyn Soto RN - 03/29/2024 2:27 PM EDT Patient transferred to post endo s/p EGD and Colonoscopy. Patient awake Respirations are even and unlabored on room air. NSR in the 67 on the monitor. Abdomen soft and non distended. Vital signs stable. Offered clear liquid * Rome Joseph RN - 03/29/2024 2:24 PM EDT Specimen(s) and location(s) verified with physician post procedure 2:24 PM Rome Joseph RN No abdominal pressure given See anesthesia record for medication administered during procedure. Rome Joseph RN Pre cleaning of scope at the bedside started by set up technician. * Marcy Tejada RN - 03/29/2024 1:42 PM EDT The following pt discharge instructions reviewed with pt prior to prodedure: No driving today. No alcohol today. No signing of legal documents. Rest as much as possible today and can return to normal activities tomorrow. No operating any heavy equipment today. Diet as tolerated. Pt verbalized understanding. Patient prepped, call reyna within reach of patient. documented in this encounter Plan of Treatment Upcoming Encounters Date Type Department Care Team (Late st Contact Info) Description 04/30/2024 9:40 AM EDT Office Visit Family [facility], [place] [address] [place] [id number] Osito Alfaro MD [address] [place] [address] 05/08/2024 8:00 AM EDT Nutrition Services Nutrition, [facility] [address] [place] [address] Keira Vickers, [place] [address] [place] [address] 11/11/2024 9:00 AM EDT Nurse Only Ancillary Department, [place] [address] [place] [address] [place], Nurse [facility] [address] [place] [address] Pending Results Name Type Priority Associated Diagnoses Date /Time SURGICAL PATHOLOGY Pathology Routine History of colon polyps Celiac disease 03/29/2024 2:23 PM EDT Scheduled Orders Name Type Priority Associated Diagnoses Order Schedule GLUCOSE METER, POINT OF CARE (COMMUNICATION ORDER) Point of Care Testing Routine Perform Now for 1 Occurrences starting 03/29/2024 until 03/29/2024 SURGICAL PATHOLOGY Pathology Routine History of colon polyps Celiac disease Release Upon Ordering for 1 Occurrences starting 03/29/2024, 1 completed Health Maintenance Due Date Last Done Comments [...] 06/13/2024 06/13/2023, 12/05 CKD HGB USE SMARTSET 56509 10/24/202410/24, 09/20/2022, 09/20/2022, Additional history exists CKD PHOS USE SMARTSET 94461 10/24/2024 10/25/2023 Adult Wellness Visit 11/06/2024 11/07/2023, 11/01/19 23 Depression Monitoring 11/06/2024 11/07/2023 DTaP,Tdap,and Td Vaccines [...] this encounter Medical Devices Implanted Type Area 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 Device Identifier Shelf Expiration Date Model / Serial / Lot Kit Accessory Ams 700 [id number] - [id number] Implanted:Qty : 1 on 03/17/2022 [place] [facility] [place] [employer] [id number] 01/19/2027 [id number] / / [id number] Rte, Snapcone, Cx.Lgx 0.5cm - [id number] Implanted:Qty : 1 on 03/17/2022 [place] Kh[place] [facility] [place] [employer]is [employer] : UROLOGY [id number] 10/20/2026 [id number] / / [id number] Cx Precon Ms 21cm Ps 12cm - [id number] Implanted:Qty : 1 on 03/17/2022 by [place] Khanna [place] [facility] [place]: [employer]is [employer] [id number] 08/26/2023 [id number] / / [id number] Resvr Conceal [id number] - [id number] Implanted:Qty : 1 on 03/17/2022 by Trevor Khanna [place] [facility] [place]: Pelvis [employer] [id number] 11/17/2023 [id number] / / [id number] documented as of this encounter Procedures Procedure Name Priority Date/Time Associated Diagnosis Comments UPPER GI ENDOSCOPY 03/29/2024 1: 50 PM EDT COLONOSCOPY 03/29/2024 1:46 PM EDT GLUCOSE METER, POINT OF CARE LETA 03/29/2024 1:43 PM EDT documented in this encounter Results * UPPER GI ENDOSCOPY (03/29/2024 1:50 PM EDT) 03/29/2024 1:50 PM EDT Narrative Procedure Note Loan Sterling PA-C - 03/29/2024 1:50 PM EDT [facility] Patient Name: Clovis Bradford Procedure Date: 03/29/2024 1:50 PM Date of : 1950 Admit Type: Outpatient Note Status:Finalized Date of : 1950 Admit Type: Outpatient Age: 73 Room: [facility] 3 Gender: Male Note Status: Finalized Procedure: Upper GI endoscopy Indications: Diarrhea Providers: Padmaja Patel DO (Doctor) Referring MD: Osito Alfaro MD (Referring MD), [place](Referring MD) Medicines: General Anesthesia Complications: No immediate complications. Estimated blood loss:Minimal. Procedure: Pre-Anesthesia Assessment: - Prior to the procedure, a History and Physicalwas performed, and patient medications, allergies and sensitivities werereviewed. The patient's tolerance of previous anesthesia was reviewed. - The risks and benefits of the procedure and thesedation options and risks were discussed with the patient. All questions wereanswered and informed consent was obtained. - Patient identification and proposed procedurewere verified prior to the procedure by the physician, the nurse and the service delivery supervisor.The procedure was verified in the procedure room. - Pre-procedure physical examination revealed nocontraindications to sedation. - ASA Grade Assessment: III - A patient with severesystemic disease. - After reviewing the risks and benefits, thepatient was deemed in satisfactory condition to undergo the procedure. - The anesthesia plan was to use generalanesthesia. - Immediately prior to administration ofmedications, the patient was re-assessed for adequacy to receive sedatives. - The heart rate, respiratory rate, oxygensaturations, blood pressure, adequacy of pulmonary ventilation, and response to care weremonitored throughout the procedure. - The physical status of the patient wasre-assessed after the procedure. After obtaining informed consent, the endoscope waspassed under direct vision. All instruments were visually inspected immediatelybefore and after removal from the patient to ensure they are fully intact. Throughout the procedure, the patient's bloodpressure, pulse, and oxygen saturations were monitored continuously. The [id number] ([id number]) was introduced through the mouth, and advanced to the third partof duodenum. The upper GI endoscopy was accomplished without difficulty. The patienttolerated the procedure well. Findings & Specimens: The upper third of the esophagus and middle third of the esophaguswere normal. LA Grade B (one or more mucosal breaks greater than 5 mm, notextending between the tops of two mucosal folds) esophagitis with no bleeding was found at the gastroesophagealjunction. Biopsies were taken with a cold forceps for histology. The pathology specimen was placedinto Bottle Number 3. Estimated blood loss was minimal. Diffuse mild inflammation characterized by congestion (edema),erythema and granularity was found in the entire examined stomach. Biopsies were taken with a cold forcepsfor histology. The pathology specimen was placed into Bottle Number 2. Estimated blood loss wasminimal. Scattered moderate inflammation characterized by congestion (edema),erosions, erythema and shallow ulcerations was found in the duodenal bulb and in the second portionof the duodenum. Biopsies were taken with a cold forceps for histology. The pathology specimen wasplaced into Bottle Number 1. Estimated blood loss was minimal. Impression: - Normal upper third of esophagus and middle thirdof esophagus. - LA Grade B reflux esophagitis with no bleeding.Biopsied. - Gastritis. Biopsied. - Duodenitis. Biopsied. Recommendation: - Perform a colonoscopy today. - Await pathology results. - Use sucralfate tablets 1 gram PO QID. Padmaja Patel DO 03/29/2024 3:04:17 PM This report has been signed electronically. Loan Sterling PA-C GASTRO UPPER * COLONOSCOPY (03/29/2024 1:46 PM EDT) 03/29/2024 1:46 PM EDT Narrative Procedure Note Loan Sterling PA-C - 03/29/2024 1:46 PM EDT [facility] Patient Name: Clovis Bradford Procedure Date: 03/29/2024 1:46 PM Date of : 1950 Admit Type: Outpatient Note Status:Draft Date of : 1950 Admit Type: Outpatient Age: 73 Room: [facility] 3 Gender: Male Note Status: Manager Completions Override Procedure: Colonoscopy Indications: Clinically significant diarrhea of unexplainedorigin Providers: Padmaja Patel DO (Doctor) Referring MD: Osito Alfaro MD (Referring MD), [place] (Referring MD) Medicines: General Anesthesia Complications: No immediate complications. Estimated blood loss:Minimal. Procedure: Pre-Anesthesia Assessment: - Prior to the procedure, a History and Physicalwas performed, and patient medications, allergies and sensitivities werereviewed. The patient's tolerance of previous anesthesia was reviewed. - The risks and benefits of the procedure and thesedation options and risks were discussed with the patient. All questions wereanswered and informed consent was obtained. - Patient identification and proposed procedurewere verified prior to the procedure by the physician, the nurse and the service delivery supervisor.The procedure was verified in the procedure room. - Pre-procedure physical examination revealed nocontraindications to sedation. - ASA Grade Assessment: III - A patient with severesystemic disease. - After reviewing the risks and benefits, thepatient was deemed in satisfactory condition to undergo the procedure. - The anesthesia plan was to use generalanesthesia. - Immediately prior to administration ofmedications, the patient was re-assessed for adequacy to receive sedatives. - The heart rate, respiratory rate, oxygensaturations, blood pressure, adequacy of pulmonary ventilation, and response to care weremonitored throughout the procedure. - The physical status of the patient wasre-assessed after the procedure. After I obtained informed consent, the scope waspassed under direct vision. All instruments were visually inspected immediatelybefore and after removal from the patient to ensure they are fully intact. Throughout the procedure, the patient's bloodpressure, pulse, and oxygen saturations were monitored continuously. The [id number] ([id number]) was introduced through the anus and advanced to the terminalileum. The colonoscopy was performed without difficulty. The patient tolerated theprocedure well. The quality of the bowel preparation was adequate to identify polyps 6mm and larger in size. Findings & Specimens: Hemorrhoids were found on perianal exam. The terminal ileum appeared normal. Normal mucosa was found in the entire colon. Biopsies for histologywere taken with a cold forceps from the entire colon for evaluation of microscopic colitis. The pathologyspecimen was placed into Bottle Number 4. Estimated blood loss was minimal. A 5 mm polyp was found in the descending colon. The polyp wassessile. The polyp was removed with a cold snare. Resection and retrieval were complete. The pathologyspecimen was placed into Bottle Number 5. Estimated blood loss was minimal. Internal hemorrhoids were found during retroflexion. The hemorrhoidswere mild. Multiple small-mouthed diverticula were found in the sigmoid colon. Multiple small localized angioectasias without bleeding were found inthe rectum. Impression: - Hemorrhoids found on perianal exam. - The examined portion of the ileum was normal. - Normal mucosa in the entire examined colon.Biopsied. - One 5 mm polyp in the descending colon, removedwith a cold snare. Resected and retrieved. - Internal hemorrhoids. - Mild diverticulosis in the sigmoid colon. - Multiple non-bleeding colonic angioectasiasconsistent with known radiation proctitis. Recommendation: - The patient will be observed post-procedure,until all discharge criteria are met. - Advance diet as tolerated today. - Await pathology results. - Repeat colonoscopy in 3 years for surveillancedue to limitations of the bowel prep Padmaja Patel DO 03/29/2024 3:00:27 PM This report has been signed electronically. Loan JACINTO-Racquel GASTRO LOWER * (ABNORMAL) GLUCOSE METER, POINT OF CARE (03/29/2024 1:43 PM EDT) Pathologist [facility] Glucose Meter 125(H) 70 - 120 mg/dL 03/29/2024 1:47 PM EDT LABORATORY PORT 3dplusme 57- Blood Whole blood specimen / Unknown 03/29/2024 1:43 PM EDT 03/29/2024 1:46 PM EDT Padmaja Patel DO LAB POINT OF CARE TE ST DOCKED DEVICE UNSOLICITED RESULTS LABORATORY PORT 3dplusme 57- [address] [place] [address] documented in this encounter Visit Diagnoses Diagnosis History of colon polyps Personal history of colonic polyps Celiac disease documented in this encounter Administered Medications Inactive Administered Medications - up to 3 most recent administrations Medication Order MAR Action Action Date Dose Rate Site isolyte-S pH 7.4 infusion Intravenous, at 100 mL/hr, Plasma-LYTE 148, isolyte-S, and isolyte-S pH 7.4 are considered equivalent - including for MAR barcode scanning., CONTINUOUS, Starting on Mon03/29/24 at 1400, Until Mon03/29/24 at 1932, Pre-Op New Bag 03/29/2024 1:44 PM EDT 100 mL/hr documented in this encounter Active and Recently Administered Medications Times are shown in EDT. Continuous Medication Order 03/27/2024 03/28/2024 03/29/2024 isolyte-S pH 7.4 infusion Intravenous, at 100 mL/hr, Plasma-LYTE 148, isolyte-S, and isolyte-S pH 7.4 are considered equivalent - including for MAR barcode scanning., CONTINUOUS, Starting on Mon03/29/24 at 1400, Until Mon03/29/24 at 1932, Pre-Op 1344 (New Bag - Prov ider: Marcy Tejada RN)1420 (Anes Intra-Op Fluid - Provider: Rolf Menjivar CRNA) documented in this encounter Advance Directives * Full Code (Latest Code Status on File) Date Activated Date Inactivated Comments 03/17/2022 10:18 AM 03/18/2022 2:38 PM Question Answer Comments Discussion of Advance Directives occurred with: Not Discussed Care Teams Change Analyst Relationship Specialty Start Date End Date Osito Alfaro MD [address], [place] [id number] PCP - General Family Medicine 09/01/21 documented as of this encounter
--- OUTSIDE RECORDS SUMMARY | 2024-05-23 15:13 | External Medical Summary | Summary of Care ---
Author Name Unknown Organization [facility] Address [address] [facility] [place] [address] Phone [phone] Care Team Providers Care Porcelain Enamel Installer Name Role Phone Osito Alfaro MD Primary Care Provider [phone] Reason for Visit * Reason Onset Date Comments Medication Refill 03/01/2024 Encounter Details Date Type Department Care Team (Late st Contact Info) Description 03/01/2024 Refill Cardiology, [facility] [address] [place] [address] Anton Malone MD [address] [place] [address] Aneurysm of ascending aorta without rupture (HCC)*; HTN, goal below 140/90 Allergies Active Allergy Reactions Criticality Noted Date Comments Cat Dander 09/01/2016 Warfarin Hives 09/01/2016 Dust Cough 03/16/2009 Mold Cough 03/16/2009 Other Allergy (See Comments) 04/04/2022 Grass - sneezing/sinus Pollen Cough 03/16/2009 Also grass documented as of this encounter (statuses as of 03/04/2024) Medications Medication Sig Dispensed Refills Start Date [...] being needed 60 Tablet 3 01/12/2023 Active Doxazosin Mesylate 4 MG Oral Tablet (Cardura) Take 1 Tablet by mouth at bedtime. 90 Tablet 3 02/20/2023 Active Omeprazole 20 MG Oral Capsule Delayed [...] Nasal Solution (Astelin)Indicat ions:Chronic rhinitis Administer 1 [place] into nostril in the morning and 1 [place] before bedtime. 90 mL 1 02/21/2024 Active [...] the evening 135 Tablet 1 03/04/2024 Active Metoprolol Succinate ER 100 MG Oral Tablet Extended Release 24 Hour (toPROL XL) 1 tablet in the morning 1/2 in the evening 135 Tablet 3 01/17/2023 Discontinue d(Refill) documented as of this encounter (statuses as of 03/04/2024) Active Problems Problem Noted Date Diagnosed Date [...] as of this encounter (statuses as of 03/04/2024) Resolved Problems Problem Noted Date Diagnosed Date Resolved Date Prediabetes 01/16/2023 02/28/2024 Overview: Per Prediabetes protocol documented as of this encounter (statuses as of 03/04/2024) Immunizations Name Administration Dates Next Due COVID-19 [...] encounter Miscellaneous Notes * Telephone Encounter - Carlene Mchugh CMA - 03/04/2024 9:09 AM EDTPending Prescriptions: Disp Refills Metoprolol Succinate ER 100 MG Oral Tablet*135 Ta*1 Si tablet in the morning 1/2 in the evening * Telephone Encounter - Carlene Mchugh CMA - 03/04/2024 9:05 AM EDT Scheduling - please contact patient to schedule overdue f/u. Last seen by Dr. Malone January 2023. Did you pend patient's preferred pharmacy and medication before forwarding?yes Pharmacy: [facility] [address] [address] [address] [place] Pending Prescriptions: Disp Refills Metoprolol Succinate ER 100 MG Oral Table*135 Ta*1 Si tablet in the morning 1/2 in the evening Last Visit: 01/17/2023 (in office), Visit date not found (telemedicine) Next Visit: Visit date not found If no future appointments scheduled, and last appointment is greater than a year ago, please schedule patient for a follow-up appointment Last date the medication was ordered: 01/17/23 Is this request for a controlled substance?No Urine Drug Screen:No results found for this or any previous visit. Patient Phone Numbers Labs: Lab Results Component Value Date/Time CREAT 1.2 10/25/2023 10:51 AM CREAT 1.4 (H) 05/18/2020 04:13 PM POTASSIUM 4.7 10/25/2023 10:51 AM TSH 2.60 03/01/2024 12:48 PM LDLCALC 70 06/13/2023 09:10 AM ALT 19 06/13/2023 09:10 AM HGBA1C 6.4 (H) 10/25/2023 10:51 AM documented in this encounter Plan of Treatment Upcoming Encounters Date Type Department Care Team (Late st Contact Info) Description 04/30/2024 9:40 AM EDT Office Visit [facility] [address] [place] [phone] Osito Alfaro MD [address] [facility] [address] 05/08/2024 8:00 AM EDT Nutrition Services Nutrition, [facility] [address] [place] [address] Keira Vickers, RDN [address] [place] [address] 11/11/2024 9:00 AM EDT Nurse Only Ancillary Department, [place] [address] [facility] [address] [place], Nurse [facility] [address] [facility] [address] Scheduled Procedures Name Priority Associated Diagnoses Date/Ti me COLONOSCOPY FLEXIBLE PROXIMAL DIAGNOSTIC Recall History of colon polyps Health Maintenance Due Date Last Done Comments Diabetic Eye Exam 1966 Diabetic Foot Exam 1966 Hepatitis C Screening 1966 COVID-19 Vaccine (2 - season) 2023 08/18/2021 Zoster Vaccines (2 of 2) 12/20/2023 10/25/2023 Influenza Vaccine (FLU shot) (#1) 2024 06/13/2023, 05/21/2022, 06/29/2020, Additional history exists GFR 04/26/2024 10/25/2023, 110 02/2023, 03/15/2023, Additional history exists HbA1c 04/26/2024 10/25/2023, 110 02/2023, 03/15/2023, Additional history exists Albumin/Creatinine Ratio 06/13/2024 06/13/2023, 12/05 CKD HGB USE SMARTSET 43571 10/24/202410/24, 09/20/2022, 09/20/2022, Additional history exists CKD PHOS USE SMARTSET 94633 10/24/2024 10/25/2023 Depression Monitoring 11/06/2024 11/07/2023 Colonoscopy [...] this encounter Medical Devices Implanted Type Area Waterproof Coating Machine Tender Device Identifier Shelf Expiration Date Model / Serial / Lot Kit Accessory Ams 700 [id number] - [id number] Implanted:Qty : 1 on 03/17/2022 by Trevor Khanna MD at [facility] N/A: Scrotum MyTrainer [id number] 01/19/2027 [id number] / / [id number] Rte, Snapcone, Cx.Lgx 0.5cm - [id number] Implanted:Qty : 1 on 03/17/2022 by Trevor Khanna MD at OR [facility] N/A: Penis [employer] : UROLOGY [id number] 10/20/2026 [id number] / / [id number] Cx Precon Ms 21cm Ps 12cm - [id number] Implanted:Qty : 1 on 03/17/2022 by Trevor Khanna MD at OR [facility] N/A: Penis [employer] [id number] 08/26/2023 [id number] / / [id number] Resvr Conceal [id number] - [id number] Implanted:Qty : 1 on 03/17/2022 by Trevor Khanna MD at OR [facility] N/A: Pelvis MyTrainer [id number] 11/17/2023 [id number] / / [id number] documented as of this encounter Visit Diagnoses Diagnosis Aneurysm of ascending aorta without rupture (HCC)- Primary HTN, goal below 140/90 Unspecified essential hypertension documented in this encounter Advance Directives * Full Code (Latest Code Status on File) Date Activated Date Inactivated Comments 03/17/2022 10:18 AM 03/18/2022 2:38 PM Question Answer Comments Discussion of Advance Directives occurred with: Not Discussed Care Teams Porcelain Enamel Installer Relationship Specialty Start Date End Date Osito Alfaro MD [address] [place] [address] PCP - General Family Medicine 09/01/21 documented as of this encounter
--- OUTSIDE RECORDS SUMMARY | 2024-05-23 15:13 | External Medical Summary | Summary of Care ---
Author Name Unknown Organization [facility] Address [address] [place] [address] Phone [phone] Care Team Providers Care Stem Cutter Name Role Phone Osito Alfaro MD Primary Care Provider [phone] Reason for Visit * Reason Onset Date Comments MyCode Nonconsent - Not interested at this time 03/01/2024 Encounter Details Date Type Department Care Team (Late st Contact Info) Description 03/01/2024 Orders Only Outcomes Research Department [address] [place] [address] Elma Guardado CHRA MyCode Nonconsent Documentation Allergies Active Allergy Reactions Criticality Noted Date Comments Cat Dander 09/01/2016 Warfarin Hives 09/01/2016 Dust Cough 03/16/2009 Mold Cough 03/16/2009 Other Allergy (See Comments) 04/04/2022 Grass - sneezing/sinus Pollen Cough 03/16/2009 Also grass documented as of this encounter (statuses as of 03/01/2024) Medications Medication Sig Dispensed Refills Start Date [...] being needed 60 Tablet 3 01/12/2023 Active Metoprolol Succinate ER 100 MG Oral Tablet Extended Release 24 Hour (toPROL XL) 1 tablet in the morning 1/2 in the evening 135 Tablet 3 01/17/2023 Active Doxazosin Mesylate 4 MG Oral Tablet [...] Nasal Solution (Astelin)Indicatio ns:Chronic rhinitis Administer 1 [place] into nostril in the morning and 1 [place] before bedtime. 90 mL 1 02/21/2024 Active [...] the morning. 60 Tablet 5 02/29/2024 Active documented as of this encounter (statuses as of 03/01/2024) Active Problems Problem Noted Date Diagnosed Date [...] as of this encounter (statuses as of 03/01/2024) Resolved Problems Problem Noted Date Diagnosed Date Resolved Date Prediabetes 01/16/2023 02/28/2024 Overview: Per Prediabetes protocol documented as of this encounter (statuses as of 03/01/2024) Immunizations Name Administration Dates Next Due COVID-19 mRNA, LNP-s, No Pre serve, 2-Dose Series ([employer]) 08/18/2021 Pneumococcal Conjugate Vacc, 13 Valent (Prevnar) [...] as of this encounter Progress Notes * Elma Guardado CHRA - 03/01/2024 12:59 PM EDT MyCode Nonconsent Documentation Clovis Dunham Sanchez was approached in the clinic regarding participation in the MyCode Project and did not consent. documented in this encounter Plan of Treatment Upcoming Encounters Date Type Department Care Team (Late st Contact Info) Description 04/30/2024 9:40 AM EDT Office Visit [facility] [place] [address] [place] [facility] [place] [id number] Osito Alfaro MD [address] [facility] [place] [address] 05/08/2024 8:00 AM EDT Nutrition Services Nutrition, [facility] [address] [place] [address] Keira Vickers, RDN [address] [place] [address] 11/11/2024 9:00 AM EDT Nurse Only Ancillary Department, [place] [address] [facility] [place] [address] [place], Nurse Annual Wellness [address] [place] [address] Scheduled Procedures Name Priority Associated Diagnoses Date/Ti [...] 06/29/2020, Additional history exists GFR 04/26/2024 10/25/2023, 1102/2023, 03/15/2023, Additional history exists HbA1c 04/26/2024 10/25/2023, 1102/2023, 03/15/2023, Additional history exists Albumin/Creatinine Ratio 06/13/2024 06/13/2023, 12/05 CKD HGB USE SMARTSET 60261 10/24/202410/24, 09/20/2022, 09/20/2022, Additional history exists CKD PHOS USE SMARTSET 36437 10/24/2024 10/25/2023 Depression Monitoring 11/06/2024 11/07/2023 Colonoscopy [...] this encounter Medical Devices Implanted Type Area System Sales Consultant Device Identifier Shelf Expiration Date Model / Serial / Lot Kit Accessory Ams 700 [id number] - [id number] Implanted:Qty : 1 on 03/17/2022 by Trevor Khanna MD at [facility] N/A: Scrotum [employer] [id number] 01/19/2027 [id number] / / [id number] Rte, Snapcone, Cx.Lgx 0.5cm - [id number] Implanted:Qty : 1 on 03/17/2022 by Trevor Khanna MD at OR [facility] N/A: Penis [employer] : UROLOGY [id number] 10/20/2026 [id number] / / [id number] Cx Precon Ms 21cm Ps 12cm - [id number] Implanted:Qty : 1 on 03/17/2022 by Trevor Khanna MD at OR [facility] N/A: Penis [employer] [id number] 08/26/2023 [id number] / / [id number] Resvr Conceal [id number] - [id number] Implanted:Qty : 1 on 03/17/2022 by Trevor Khanna MD at OR [facility] N/A: Pelvis [employer] [id number] 11/17/2023 [id number] / / [id number] documented as of this encounter Advance Directives * Full Code (Latest Code Status on File) Date Activated Date Inactivated Comments 03/17/2022 10:18 AM 03/18/2022 2:38 PM Question Answer Comments Discussion of Advance Directives occurred with: Not Discussed Care Teams Stem Cutter Relationship Specialty Start Date End Date Osito Alfaro MD [address] [place] [address] PCP - General Family Medicine 09/01/21 documented as of this encounter
--- OUTSIDE RECORDS SUMMARY | 2024-05-23 15:14 | External Medical Summary ---
Author Name Unknown Address Unknown Organization K01:LABORATORY C - [address] [place] [address] Laboratory Report Ordering Provider Test Date Status DEREJE SCHAFER 03/01/2024 12:48:01 Final Observation Date Value Abnormality Reference (Units ) Status TSH 03/01/2024 12:48:01 2.60 0.27-4.20 (uIU/mL) Final Performing Location [facility] - [address] [place] [address]
--- OUTSIDE RECORDS SUMMARY | 2024-05-23 15:14 | External Medical Summary ---
Author Name Unknown Address Unknown Organization : Laboratory Report Ordering Provider Test Date Status DEREJE SCHAFER 02/27/2024 09:01:10 Final Observation Date Value Abnormality Reference (Units ) Status Ova and parasites identified in Stool by Trichrome stain--3rd specimen 02/27/2024 09:01:10 SEE BELOW Final Ova and Parasites, Concentra te and Permanent Smear
Examination for Ova and Parasites
SOURCE : STOOL
Result/Comment:
NO OVA AND PARASITES SEEN.
Reference Range: No Ova and Parasites seen
Routine Ova and Parasite Exam may not detect some
parasites that occasionally cause diarrheal illness.
Cryptosporidium Antigen and/or Cyclospora and Isospora
Exam may be ordered to detect these parasites.
One negative sample does not necessarily rule out the
presence of a parasitic infection.
Assay performed by wet mount after concentration.
Parasite Exam, Trichrome Stain
SOURCE : STOOL
Result/Comment:
NO OVA AND PARASITES SEEN.
Routine Ova and Parasite Exam may not detect some
parasites that occasionally cause diarrheal illness.
Cryptosporidium Antigen and/or Cyclospora and Isospora
Exam may be ordered to detect these parasites.
One negative sample does not necessarily rule out the
presence of a parasitic infection.
For additional information, please refer to
https://education.Vizolution/faq/RHY472
(This link is being provided for informational/
educational purposes only.)

Test Performed at:
[facility]
[address] [place] [address]
Gui Renee M.D., Ph.D.,Director of Laboratories Performing Location
--- OUTSIDE RECORDS SUMMARY | 2024-05-23 15:14 | External Medical Summary | Summary of Care ---
Author Name Unknown Organization [facility] Address [address] [place] [address] Phone [phone] Care Team Providers Care Oiler Bander Name Role Phone Osito Alfaro MD Primary Care Provider [phone] Reason for Visit * Reason Comments eRx-Medication Refill Encounter Details Date Type Department Care Team (Late st Contact Info) Description 02/15/2024 Refill [facility] [address] [facility] [place] [address] Osito Alfaro MD [address] [place] [address] Allergies Active Allergy Reactions Criticality Noted Date Comments Cat Dander 09/01/2016 Warfarin Hives 09/01/2016 Dust Cough 03/16/2009 Mold Cough 03/16/2009 Other Allergy (See Comments) 04/04/2022 Grass - sneezing/sinus Pollen Cough 03/16/2009 Also grass documented as of this encounter (statuses as of 02/16/2024) Medications Medication Sig Dispensed Refills Start Date End Date Status LORATADINE 10 MG PO CAPS daily Active CENTRUM SILVER PO TABS daily Active Melatonin 10 MG Oral Tablet Take 1 Tablet by mouth at bedtime. 09/23/2021 Active Mirabegron ER 50 MG Oral Tablet Extended Release 24 Hour (Myrbetriq) Take by mouth 1 Tablet in the morning. 30 Tablet 3 05/16/2022 Active Triamcinolone Acetonide 0.1 % External Ointment (Aristocort)Indicat ions:Other eczema Apply topically to affected area 2 times a day. To affected area. 80 g 5 09/20/2022 Active Additional Information Patient not taking.Reported on 09/06/2023 metFORMIN HCl ER 500 MG Oral Tablet Extended Release 24 Hour (Glucophage XR)Indications:DM type 2, goal HbA1c < 7.5% (HCC) Take 2 tabs with breakfast daily. First 2 weeks- take 1 tab daily 180 Tablet 3 10/01/2022 Active Prevagen 10 MG Oral Capsule (Apoaequorin) Take by mouth. Active amLODIPine Besylate 5 MG Oral Tablet (Norvasc) Take 1 Tablet by mouth in the morning. Once daily. 90 Tablet 3 01/12/2023 Active Sildenafil Citrate 20 MG Oral Tablet [...] at bedtime. 90 Tablet 3 02/20/2023 Active Lidocaine 5 % External Patch (Lidoderm)Indicatio ns:Closed fracture of one rib, unspecified laterality, sequela Place 1 Patch over 12 hours topically on the skin daily. 30 Patch 05/30/2023 Active Additional Information Patient not taking.Reported on 09/06/2023 oxyCODONE HCl 5 MG Oral Tablet (Oxy IR)Indications:Clos ed fracture of one rib with routine healing, unspecified laterality, subsequent encounter Take 1 Tablet by mouth every 6 hours as needed for Pain, Severe. 20 Tablet 06/07/2023 Active Additional Information Patient not taking.Reported on 09/06/2023 Omeprazole 20 MG Oral Capsule Delayed Release (PriLOSEC) Take 1 capsule by mouth in the morning 90 Capsule 1 07/28/2023 Active Escitalopram Oxalate 10 MG Oral Tablet (Lexapro)Indication s:Generalized anxiety disorder Take 1 Tablet by mouth in the morning. 30 Tablet 5 09/08/2023 Active Azelastine HCl 0.1 % Nasal Solution (Astelin)Indication s:Chronic rhinitis Administer 1 [place] into nostril in the morning and 1 [place] before bedtime. 30 mL 11 10/25/2023 Active Rosuvastatin Calcium 10 MG Oral Tablet (Crestor)Indication s:Dyslipidemia, goal LDL below 70 TAKE 1 TABLET BY MOUTH ONCE DAILY IN THE EVENING 90 Tablet 3 12/25/2023 Active Lisinopril 20 MG Oral Tablet (Prinivil) Take 1 Tablet by mouth in the morning. 90 Tablet 2 01/31/2024 Active Fluticasone Propionate 50 MCG/ACT Nasal Suspension (Flonase)Indication s:Chronic rhinitis Administer 2 Sprays into each nostril in the morning. 16 g 5 01/31/2024 Active documented as of this encounter (statuses as of 02/16/2024) Active Problems Problem Noted Date Diagnosed Date Prediabetes 01/16/2023 Overview: Per Prediabetes protocol Dyslipidemia, goal LDL below 70 10/31/2022 Dilated [...] as of this encounter (statuses as of 02/16/2024) Immunizations Name Administration Dates Next Due COVID-19 mRNA, LNP-s, No Pre serve, 2-Dose Series (Playroom) 08/18/2021 Pneumococcal Conjugate Vacc, 13 Valent (Prevnar) [...] encounter Miscellaneous Notes * Telephone Encounter - Efrain Benton [facility] - 02/16/2024 11:13 AM EDT Refused Prescriptions: Disp Refills amLODIPine Besylate 5 MG Oral Tablet (Norv*90 Tab*0 Sig: TAKE 1TABLET BY MOUTH ONCE DAILY IN THE MORNINGRefused By: EFRAIN BENTON for Refusal: Duplicate Request documented in this encounter Plan of Treatment Upcoming Encounters Date Type Department Care Team (Late st Contact Info) Description 04/30/2024 9:40 AM EDT Office Visit Family [facility], [place] [address] [facility] [place] [address] Osito Alfaro MD [address] [place] [address] 11/11/2024 9:00 AM EDT Nurse Only Ancillary Department, [place] [address] [place] [address] [place], Nurse Annual [facility] [address] [place] [address] Scheduled Procedures Name Priority Associated Diagnoses Date/Ti me COLONOSCOPY FLEXIBLE PROXIMAL DIAGNOSTIC Recall History of colon polyps Health Maintenance Due Date Last Done Comments Hepatitis C Screening 1968 COVID-19 Vaccine (2 - 2022- season) 2023 08/18/2021 Zoster Vaccines (2 of 2) 12/20/2023 10/25/2023 Influenza Vaccine (FLU shot) (#1) 2024 06/13/2023, 05/21/2022, 06/29/2020, Additional history exists GFR 04/26/2024 10/25/2023, 11/0 02/2023, 03/15/2023, Additional history exists Albumin/Creatinine Ratio 06/13/2024 06/13/2023, 0502/2023 CKD HGB USE SMARTSET 20130 10/24/202410/24, 09/20/2022, 09/20/2022, Additional history exists CKD PHOS USE SMARTSET 27934 10/24/2024 10/25/2023 HbA1c 10/24/2024 10/25/2023, 11/0 02/2023, 03/15/2023, Additional history exists Depression Monitoring 11/06/2024 11/07/2023 Colonoscopy 08/17/2027 08/17/2022, [...] this encounter Medical Devices Implanted Type Area Supply Chain Coordinator Device Identifier Shelf Expiration Date Model / Serial / Lot Kit Accessory Ams 700 [id number] - [id number] Implanted:Qty : 1 [place] 03[place]17/[place] [facility] [place] Scrotum [employer] [id number] 01/19/2027 [id number] / / [id number] Rte, Snapcone, Cx.Lgx 0.5cm - [id number] Implanted:Qty : 1 on 03/17/2022 by Trevor Khanna [place] [facility] [place]: Penis [employer] : UROLOGY [id number] 10/20/2026 [id number] / / [id number] Cx Precon Ms 21cm Ps 12cm - [id number] Implanted:Qty : 1 on 03/17/2022 by Trevor Khanna [place] [facility] [place]: Penis [employer]er[employer]M [id number] 08/26/2023 [id number] / / [id number] Resvr Conceal 061607-64 - [id number] Implanted:Qty : 1 on 03/17/2022 by Trevor Khanna [place] [facility] [place]: Pelvis [employer]erCRM [id number] 11/17/2023 [id number] / / [id number] documented as of this encounter Advance Directives * Full Code (Latest Code Status on File) Date Activated Date Inactivated Comments 03/17/2022 10:18 AM 03/18/2022 2:38 PM Question Answer Comments Discussion of Advance Directives occurred with: Not Discussed Care Teams Oiler Bander Relationship Specialty Start Date End Date Osito Alfaro MD [address] [place] [phone] PCP - General Family Medicine 09/01/21 documented as of this encounter
--- OUTSIDE RECORDS SUMMARY | 2024-05-23 15:14 | External Medical Summary ---
Author Name Unknown Address Unknown Organization K01:[facility] - [address] [place] [address] Laboratory Report Ordering Provider Test Date Status DEREJE SCHAFER 02/27/2024 09:01:22 Final Observation Date Value Abnormality Reference (Units) Status Source 02/27/2024 09:01:22 Liquid Final Clostridioides difficile toxin and BI-[id number] strain DNA panel - Stool by PHILLIP with probe detection 02/27/2024 09:01:22 Negative. No C. 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 Negative Final Performing Location [facility] - [address] [place] [address]
--- OUTSIDE RECORDS SUMMARY | 2024-05-23 15:14 | External Medical Summary ---
Author Name Unknown Address Unknown Organization [id number]:[facility] [place] [address] [place] [address] Laboratory Report Ordering Provider Test Date Status DEREJE SCHAFER 02/27/2024 09:01:10 Final Reduced normal dean. Clinic al correlation needed. Observation Date Value Abnormality Reference (Units) Status Bacteria identified in Specimen by Culture 02/27/2024 09:01:10 No Aeromonas species or Plesiomonas species isolated. Final Test: Gastrointestinal Patho gen Panel Culture
Specimen Source: Stool
Specimen Type: Stool
Specimen Date: 02/27/2024900
Result Date: 03/01/2024 1146
Result Status: Final result
Resulting Lab: [facility] [place]
[address] [facility] [address]
[place] [id number]

CULTURE

No Aeromonas species or Plesiomonas species isolated.

Reduced normal dean. Clinical correlation needed.

null Performing Location [facility] [place] - [address] [place] [id number]
--- OUTSIDE RECORDS SUMMARY | 2024-05-23 15:14 | External Medical Summary | Summary of Care ---
Author Name Unknown Organization [facility] Address [address] [place] [address] Phone [phone] Care Team Providers Care Platform Consultant Name Role Phone Osito Alfaro MD Primary Care Provider [phone] Reason for Visit * Reason Comments Outpatient Testing Encounter Details Date Type Department Care Team (Late st Contact Info) Description 03/01/2024 12:50 PM EDT Laboratory Laboratory, [place] [address] [place] [phone] [place], Laboratory [address] [place] [address] Diarrhea of presumed infectious origin; Malaise and fatigue; Type 2 diabetes mellitus with stage 3a chronic kidney disease, without long-term current use of insulin ([facility]) Allergies Active Allergy Reactions Criticality Noted Date [...] Nasal Solution (Astelin)Indicatio ns:Chronic rhinitis Administer 1 [place] into nostril in the morning and 1 [place] before bedtime. 90 mL 1 02/21/2024 Active [...] Description 04/30/2024 9:40 AM EDT Office Visit [facility] [address] [place] [facility] [place] [phone] Osito Alfaro MD [address] [facility] [place] [id number] 05/08/2024 8:00 AM EDT [facility] [address] [place] [address] Keira Vickers RDN [address] [place] [address] 11/11/2024 9:00 AM EDT Nurse Only Ancillary Department, [place] [address] [place] [address] [place], Nurse Annual Wellness [address] [place] [address] Pending Results Name Type Priority Associated Diagnoses Date /Time TSH Lab Routine Diarrhea of presumed infectious origin Malaise and fatigue 03/01/2024 12:48 PM EDT T4, FREE Lab Routine Malaise and fatigue 03/01/2024 12:48 PM EDT 25-HYDROXY VITAMIN D Lab Routine Malaise and fatigue 03/01/2024 12:48 PM EDT GLIADIN (DEAMIDATED) IGA AND IGG ANTIBODIES Lab Routine Diarrhea of presumed infectious origin Malaise and fatigue 03/01/2024 12:48 PM EDT TISSUE TRANSGLUTAMINASE IGA ANTIBODY Lab Routine Diarrhea of presumed infectious origin Malaise and fatigue 03/01/2024 12:48 PM EDT TESTOSTERONE: TOTAL, FREE AND BIOAVAILABLE Lab Routine Type 2 diabetes mellitus with stage 3a chronic kidney disease, without long-term current use of insulin (HCC) Malaise and fatigue 03/01/2024 12:48 PM EDT Scheduled Procedures Name Priority Associated Diagnoses [...] 03/15/2023, Additional history exists HbA1c 04/26/2024 10/25/2023, 0 02/2023, 03/15/2023, Additional history exists Albumin/Creatinine Ratio 06/13/2024 06/13/2023, 12/05 CKD HGB USE SMARTSET 75275 10/24/202410/24, 09/20/2022, 09/20/2022, Additional history exists CKD PHOS USE SMARTSET 02868 10/24/2024 10/25/2023 Depression Monitoring 11/06/2024 11/07/2023 Colonoscopy [...] this encounter Medical Devices Implanted Type Area Head Animal Trainer Device Identifier Shelf Expiration Date Model / Serial / Lot Kit Accessory Ams 700 [id number] - [id number] Implanted:Qty : 1 on 03/17/2022 by Trevor Khanna MD at [place] [facility] [place]/A: Scrotum [employer] [id number] 01/19/2027 [id number] / / [id number] Rte, Snapcone, Cx.Lgx 0.5cm - [id number] Implanted:Qty : 1 on 03/17/2022 by Trevor Khanna MD at [place] [facility] [place] N/A: Penis IP Street : UROLOGY [id number] 10/20/2026 [id number] / / [id number] Cx Precon Ms 21cm Ps 12cm - [id number] Implanted:Qty : 1 on 03/17/2022 by Trevor Khanna MD at OR [facility] [place] N/A: Penis [employer] [id number] 08/26/2023 [id number] / [id number] Resvr Conceal 732509-13 - [id number] Implanted:Qty : 1 on 03/17/2022 by Trevor Khanna MD at [place] [facility] [place] N/A: Pelvis [employer] [id number] 11/17/2023 [id number] / [id number] documented as of this encounter Visit Diagnoses Diagnosis Diarrhea of presumed infectious origin Malaise and fatigue Other malaise and fatigue Type 2 diabetes mellitus with stage 3a chronic kidney disease, without long-term current use of insulin (HCC) documented in this encounter Advance Directives * Full Code (Latest Code Status on File) Date Activated Date Inactivated Comments 03/17/2022 10:18 AM 03/18/2022 2:38 PM Question Answer Comments Discussion of Advance Directives occurred with: Not Discussed Care Teams Platform Consultant Relationship Specialty Start Date End Date Osito Alfaro MD [address] [place] [address] PCP - General Family Medicine 09/01/21 documented as of this encounter
--- OUTSIDE RECORDS SUMMARY | 2024-05-23 15:14 | External Medical Summary ---
Author Name Unknown Address Unknown Organization K01:[facility]ATORY [address] [place] [address] Laboratory Report Ordering Provider Test Date Status DEREJE SCHAFER 03/01/2024 12:48:01 Final Observation Date Value Abnormality Reference (Units ) Status Gliadin peptide IgG Ab [Presence] in Serum by Immunoassay 03/01/2024 12:48:01 Negative Negative Final Gliadin peptide IgG Ab [Units/volume] in Serum by Immunoassay 03/01/2024 12:48:01 <0.6 <7 (U/mL) Final Gliadin peptide IgA Ab [Presence] in Serum by Immunoassay 03/01/2024 12:48:01 Positive Abnormal Negative Final Gliadin peptide IgA Ab [Units/volume] in Serum by Immunoassay 03/01/2024 12:48:01 13.0 <7 (U/mL) Final Performing Location [facility] [place] [facility] [address] [place] [address]
--- OUTSIDE RECORDS SUMMARY | 2024-05-23 15:14 | External Medical Summary | Summary of Care ---
Author Name Unknown Organization [facility] Address [address] [facility] [place] [address] Phone [phone] Care Team Providers Care Veterinary Epidemiologist Name Role Phone Osito Alfaro MD Primary Care Provider [phone] Reason for Visit * Reason Onset Date Comments Medication Refill 12/26/2023 Encounter Details Date Type Department Care Team (Late st Contact Info) Description 12/26/2023 Refill Cardiology, [facility] [address] [place] [address] Anton Malone MD [address] [place] [address] Dyslipidemia, goal LDL below 70 Allergies Active Allergy Reactions Criticality Noted Date Comments Cat Dander 09/01/2016 Warfarin Hives 09/01/2016 Dust Cough 03/16/2009 Mold Cough 03/16/2009 Other Allergy (See Comments) 04/04/2022 Grass - sneezing/sinus Pollen Cough 03/16/2009 Also grass documented as of this encounter (statuses as of 12/26/2023) Medications Medication Sig Dispensed Refills Start Date [...] Once daily. 90 Tablet 3 01/12/2023 Active Lisinopril 20 MG Oral Tablet (Prinivil) Take 1 Tablet by mouth in the morning. 90 Tablet 2 01/12/2023 Active Sildenafil Citrate 20 MG Oral [...] the morning. 30 Tablet 5 09/08/2023 Active Fluticasone Propionate 50 MCG/ACT Nasal Suspension (Flonase)Indication s:Chronic rhinitis Administer 2 Sprays into each nostril in the morning. 16 g 5 10/25/2023 Active Azelastine HCl 0.1 % Nasal Solution (Astelin)Indication s:Chronic rhinitis Administer 1 [place] into nostril in the morning and 1 [place] before bedtime. 30 mL 11 10/25/2023 Active Rosuvastatin Calcium 10 MG Oral Tablet (Crestor)Indication s:Dyslipidemia, goal LDL below 70 TAKE 1 TABLET BY MOUTH ONCE DAILY IN THE EVENING 90 Tablet 3 12/25/2023 Active documented as of this encounter (statuses as of 12/26/2023) Active Problems Problem Noted Date Diagnosed Date [...] as of this encounter (statuses as of 12/26/2023) Immunizations Name Administration Dates Next Due COVID-19 mRNA, LNP-s, No Pre serve, 2-Dose Series ([employer]) 08/18/2021 Pneumococcal Conjugate Vacc, 13 Valent (Prevnar) 10/18/2018 Pneumococcal Polysaccharide PPV23 (Pneumovax) Seasonal Influenza, Quadrivalent Hd (Fluzone Hd) 06/13/2023 Seasonal Influenza, Quadrivalent Hd, 65+ Yrs Seasonal Influenza, Split, IIV3, With Preserve, Inj 05/21/2013 Seasonal Influenza, Trivalent, Adjuvanted, 65+ y rs 06/29/2020 Seasonal Influenza, Trivalen t, High Dose, No Preserve, IM 05/28/2015 TDAP (age 10 and older)(Boostrix) 10/18/2018 TDAP (age 11 and older)(Adacel) 03/24/2009 Zoster Vaccine Recombinant (Shingrix) 10/25/2023 documented [...] money to get more. Never true 11/07/2023 Sex and Gender Information Value Date [...] encounter Miscellaneous Notes * Telephone Encounter - Juani Haywood CMA - 12/26/2023 1:40 PM EDTRefused Prescriptions: Disp Refills Rosuvastatin Calcium 10 MG Oral Tablet (Cr*90 Tab*3 Sig: Take 1 Tablet by mouth in the morning.Refused By: JUANI HAYWOOD for Refusal: Duplicate Request-- documented in this encounter Plan of Treatment Upcoming Encounters Date Type Department Care Team (Late st Contact Info) Description 04/30/2024 9:40 AM EDT Office Visit [place] [address] [place] [phone] Osito Alfaro MD [address] [place] [address] 11/11/2024 9:00 AM EDT Nurse Only Ancillary Department, [place] [address], [place] [phone] [place], Nurse Annual Wellness [address] [place] [address] Scheduled Procedures Name Priority Associated Diagnoses Date/Ti me COLONOSCOPY FLEXIBLE PROXIMAL DIAGNOSTIC Recall History of colon polyps Health Maintenance Due Date Last Done Comments Hepatitis C Screening 1968 COVID-19 Vaccine ( - 2022- season) 2023 08/18/2021 Zoster Vaccines (2 of 2) 12/20/2023 10/25/2023 GFR 04/26/2024 10/25/2023, 11/0 02/2023, 03/15/2023, Additional history exists Albumin/Creatinine Ratio 06/13/2024 06/13/2023, 12/05 CKD HGB USE SMARTSET 58565 10/24/202410/24, 09/20/2022, 09/20/2022, Additional history exists CKD PHOS USE SMARTSET 42272 10/24/2024 10/25/2023 HbA1c 10/24/2024 10/25/2023, 1102/2023, 03/15/2023, Additional history exists Colonoscopy 08/17/2027 08/17/2022, 08/07, 07/24/2014, Additional history exists DTaP,Tdap,and Td Vaccines (3 - Td or Tdap) 10/18/2028 10/18/2018, 03/24/2009 RETIRED - COLONOSCOPY-EVERY 5 YRS AGES 18-100 Discontinued 08/17/2022, 08/17/2022, 07/24/2014, Additional history exists Pneumococcal Vaccine: 65+ Years Completed 09/20/2022, 10/18/2018 Influenza Vaccine (FLU shot) Completed 06/13/2023, 05/21/2022, 06/29/2020, Additional history exists GARDASIL-HPV IMMUNIZATION SERIES Aged Out No longer eligible based on patient's age to complete this topic Hepatitis B Aged Out No longer eligi ble based on patient's age to complete this topic MENINGOCOCCAL (MENACTRA/MENVEO) Aged Out No longer eligible based on patient's age to complete this topic documented as of this encounter Medical Devices Implanted Type Area Charge Poster Device Identifier Shelf Expiration Date Model / Serial / Lot Kit Accessory Ams 700 [id number] - [id number] Implanted:Qty : 1 on 03/17/2022 by Trevor Khanna MD [place] [facility] [place]: Scrotum [employer] [id number] 01/19/2027 [id number] / / [id number] Rte, Snapcone, Cx.Lgx 0.5cm - [id number] Implanted:Qty : 1 on 03/17/2022 by Trevor Khanna MD [place] [facility] [place]/A: Penis [employer] : UROLOGY [id number] 10/20/2026 [id number] / / [id number] Cx Precon Ms 21cm Ps 12cm - [id number] Implanted:Qty : 1 on 03/17/2022 by Trevor Khanna MD at [place] [facility] [place] N/A: Penis [employer] [id number] 08/26/2023 [id number] / / [id number] Resvr Conceal 691232-07 - [id number] Implanted:Qty : 1 on 03/17/2022 by Trevor Khanna MD at [place] [facility] [place] N/A: Pelvis [employer] [id number] 11/17/2023 [id number] / / [id number] documented as of this encounter Visit Diagnoses Diagnosis Dyslipidemia, goal LDL below 70 Other and unspecified hyperlipidemia documented in this encounter Advance Directives * Full Code (Latest Code Status on File) Date Activated Date Inactivated Comments 03/17/2022 10:18 AM 03/18/2022 2:38 PM Question Answer Comments Discussion of Advance Directives occurred with: Not Discussed Care Teams Veterinary Epidemiologist Relationship Specialty Start Date End Date Osito Alfaro MD [address] [place] [address] PCP - General Family Medicine 09/01/21 documented as of this encounter
--- OUTSIDE RECORDS SUMMARY | 2024-05-23 15:14 | External Medical Summary ---
Author Name Unknown Address Unknown Organization K01:[facility] [place] [facility] [place] [address] [address] Laboratory Report Ordering Provider Test Date Status HANH,MINGEKARON 03/01/2024 12:48:01 Final Observation Date Value Abnormality Reference (Units ) Status Tissue transglutaminase IgA Ab [Presence] in Serum by Immunoassay 03/01/2024 12:48:01 Negative Negative Final Tissue transglutaminase IgA Ab [Units/volume] in Serum by Immunoassay 03/01/2024 12:48:01 0.8 <7 (U/mL) Final Performing Location [facility] [place] [facility] [place] [address]
--- OUTSIDE RECORDS SUMMARY | 2024-05-23 15:14 | External Medical Summary | Summary of Care ---
Author Name Unknown Organization [facility] Address [address] [facility] [place] [address] Phone [phone] Care Team Providers Care Cotton Washer Name Role Phone Osito Alfaro MD Primary Care Provider [phone] Encounter Details Date Type Department Care Team (Late st Contact Info) Description 02/27/2024 Orders Only PATIENT PORTAL DO NOT DELETE THIS DEPT USED BY [place] [id number] Allergies Active Allergy Reactions Criticality Noted Date Comments Cat Dander 09/01/2016 Warfarin Hives 09/01/2016 Dust Cough 03/16/2009 Mold Cough 03/16/2009 Other Allergy (See Comments) 04/04/2022 Grass - sneezing/sinus Pollen Cough 03/16/2009 Also grass documented as of this encounter (statuses as of 02/27/2024) Medications Medication Sig Dispensed Refills Start Date [...] Nasal Solution (Astelin)Indicatio ns:Chronic rhinitis Administer 1 [place] into nostril in the morning and 1 [place] before bedtime. 90 mL 1 02/21/2024 Active Montelukast Sodium 10 MG Oral Tablet (Singulair) Take 1 Tablet by mouth in the morning. 30 Tablet 02/21/2024 Active Azithromycin 250 MG Oral Tablet (Zithromax Z-Orlin) Take two tablets by mouth on first day, then 1 tablet daily until gone 6 Tablet 02/21/2024 Active documented as of this encounter (statuses as of 02/27/2024) Active Problems Problem Noted Date Diagnosed Date Type 2 diabetes mellitus wit h stage 3a chronic kidney disease, without long-term current use of insulin 02/21/2024 Prediabetes 01/16/2023 Overview: Per Prediabetes protocol Dyslipidemia, [...] as of this encounter (statuses as of 02/27/2024) Immunizations Name Administration Dates Next Due COVID-19 mRNA, LNP-s, No Pre serve, 2-Dose Series ([employer]) 08/18/2021 Pneumococcal Conjugate Vacc, 13 Valent (Prevnar) [...] No 11/07/2023 Does the household have a [facility] source of income? (Household - for ages [...] (15 years old or older) No 03/17/20 22 Cognitive Status Response Date of Assessm ent Because of a physical, menta l, or emotional condition, do you have serious difficulty concentrating, remembering, or making decisions? (5 years old or older) No 03/17/2022 documented as of this encounter Plan of Treatment Upcoming Encounters Date Type Department Care Team (Late st Contact Info) Description 04/30/2024 9:40 AM EDT Office Visit [facility], [facility] [address] [place] [address] Osito Alfaro MD [address] [place] [facility] [place] [address] 11/11/2024 9:00 AM EDT Nurse Only Ancillary Department, [facility] [address] [place] [facility] [place] [address] [facility], Nurse [facility] [address] [place] [address] Scheduled Procedures Name Priority Associated Diagnoses Date/Ti me COLONOSCOPY FLEXIBLE PROXIMAL DIAGNOSTIC Recall History of colon polyps Health Maintenance Due Date Last Done Comments Diabetic Eye Exam 1966 Diabetic Foot Exam 1966 Hepatitis C Screening 1966 COVID-19 Vaccine ( - season) 2023 08/18/2021 Zoster Vaccines (2 of 2) 12/20/2023 10/25/2023 Influenza Vaccine (FLU shot) (#1) 2024 06/13/2023, 05/21/2022, 06/29/2020, Additional history exists GFR 04/26/2024 10/25/2023, 02/2023, 03/15/2023, Additional history exists HbA1c 04/26/2024 10/25/2023, 02/2023, 03/15/2023, Additional history exists Albumin/Creatinine Ratio 06/13/2024 06/13/2023, 12/05 CKD HGB USE SMARTSET 76183 10/24/202410/24, 09/20/2022, 09/20/2022, Additional history exists CKD PHOS USE SMARTSET 00734 10/24/2024 10/25/2023 Depression Monitoring 11/06/2024 11/07/2023 Colonoscopy [...] this encounter Medical Devices Implanted Type Area Fisher Seal Device Identifier Shelf Expiration Date Model / Serial / Lot Kit Accessory Ams 700 [id number] - [id number] Implanted:Qty : 1 on 03/17/2022 by [place] Khanna MD [place] [facility] [place]: [facility] [employer]aga [id number] 01/19/2027 [id number] / / [id number] Rte, Snapcone, Cx.Lgx 0.5cm - [id number] Implanted:Qty : 1 on 03/17/2022 by Trevor Khanna MD [place] [facility] N/A: Penis [employer] : UROLOGY [id number] 10/20/2026 [id number] / / [id number] Cx Precon Ms 21cm Ps 12cm - [id number] Implanted:Qty : 1 on 03/17/2022 by Trevor Khanna MD [place] [facility] N/A: Penis [employer] [id number] 08/26/2023 [id number] / / [id number] Resvr Conceal [id number] - [id number] Implanted:Qty : 1 on 03/17/2022 by Trevor Khanna MD [place] [facility] N/A: Pelvis [employer] [id number] 11/17/2023 [id number] / / [id number] documented as of this encounter Advance Directives * Full Code (Latest Code Status on File) Date Activated Date Inactivated Comments 03/17/2022 10:18 AM 03/18/2022 2:38 PM Question Answer Comments Discussion of Advance Directives occurred with: Not Discussed Care Teams Cotton Washer Relationship Specialty Start Date End Date Osito Alfaro MD [address], [place] [phone] PCP - General Family Medicine 09/01/21 documented as of this encounter
--- OUTSIDE RECORDS SUMMARY | 2024-05-23 15:14 | External Medical Summary ---
Author Name Unknown Address Unknown Organization K01:[facility] [place] [address] [facility] [address] [facility] [address] Laboratory Report Ordering Provider Test Date Status DEREJE SCHAFER 02/27/2024 09:01:10 Final Observation Date Value Abnormality Reference (Units ) Status Campylobacter sp DNA.diarrheagenic [Presence] in Stool by PHILLIP with probe detection 02/27/2024 09:01:10 Negative Negative Final Salmonella sp rpoD gene [Presence] in Stool by PHILLIP with probe detection 02/27/2024 09:01:10 Negative Negative Final Shigella species+EIEC invasion plasmid antigen H ipaH gene [Presence] in Stool by PHILLIP with probe detection 02/27/2024 09:01:10 Negative Negative Final Vibrio sp DNA [Identifier] in Specimen by PHILLIP with probe detection 02/27/2024 09:01:10 Negative Negative Final Yersinia enterocolitica recN gene [Presence] in Stool by PHILLIP with probe detection 02/27/2024 09:01:10 Negative Negative Final Escherichia coli Stx1 toxin stx1 gene [Presence] in Stool by PHILLIP with probe detection 02/27/2024 09:01:10 Negative Negative Final Escherichia coli Stx2 toxin stx2 gene [Presence] in Stool by PHILLIP with probe detection 02/27/2024 09:01:10 Negative Negative Final Norovirus genogroups I and II RNA panel - Stool by PHILLIP with probe detection 02/27/2024 09:01:10 Negative Negative Final Rotavirus A RNA [Presence] in Stool by PHILLIP with probe detection 02/27/2024 09:01:10 Negative Negative Final Performing Location [facility] [place] [address] [facility] [address] [facility] [address]
--- OUTSIDE RECORDS SUMMARY | 2024-05-23 15:14 | External Medical Summary | Summary of Care ---
Author Name Unknown Organization [facility] Address [address] [place] [address] Phone [phone] Care Team Providers Care Commissioner Of Conciliation Name Role Phone Osito Alfaro MD Primary Care Provider [phone] Reason for Visit * Reason Comments Diarrhea Pt states that he is here due to diarrhea, coughing and fatigue. Ongoing for about a month Encounter Details Date Type Department Care Team (Late st Contact Info) Description 02/21/2024 3:40 PM EDT Office Visit [facility] [address] [place] [id number] Loan Sterling PA-C [address], [place] [phone] Diarrhea of presumed infectious origin*; Type 2 diabetes mellitus with stage 3a chronic kidney disease, without long-term current use of insulin ([facility]); Malignant neoplasm of prostate ([facility]); Depression, unspecified depression type; Malaise and fatigue; Chronic rhinitis Allergies Active Allergy Reactions Criticality Noted Date Comments Cat Dander 09/01/2016 Warfarin Hives 09/01/2016 Dust Cough 03/16/2009 Mold Cough 03/16/2009 Other Allergy (See Comments) 04/04/2022 Grass - sneezing/sinus Pollen Cough 03/16/2009 Also grass documented as of this encounter (statuses as of 02/21/2024) Medications Medication Sig Dispensed Refills Start Date [...] being needed 60 Tablet 3 3 Active Metoprolol Succinate ER 100 MG Oral Tablet Extended Release 24 Hour (toPROL XL) 1 tablet in the morning 1/2 in the evening 135 Tablet 3 3 Active Doxazosin Mesylate 4 MG Oral Tablet (Cardura) Take 1 Tablet by mouth at bedtime. 90 Tablet 3 3 Active Omeprazole 20 MG Oral Capsule Delayed Release (PriLOSEC) Take 1 capsule by mouth in the morning 90 Capsule 1 3 Active Escitalopram Oxalate 10 MG Oral Tablet (Lexapro)Indicat ions:Generalized anxiety disorder Take 1 Tablet by mouth in the morning. 30 Tablet 5 4 Active Rosuvastatin Calcium 10 MG Oral Tablet (Crestor)Indicat ions:Dyslipidemi a, goal LDL below 70 TAKE 1 TABLET BY MOUTH ONCE DAILY IN THE EVENING 90 Tablet 3 4 Active Lisinopril 20 MG Oral Tablet (Prinivil) Take 1 Tablet by mouth in the morning. 90 Tablet 2 4 Active Fluticasone Propionate 50 MCG/ACT Nasal Suspension (Flonase)Indicat ions:Chronic rhinitis Administer 2 Sprays into each nostril in the morning. 16 g 5 4 Active amLODIPine Besylate 5 MG Oral Tablet (Norvasc) Take 1 Tablet by mouth in the morning. Once daily. 90 Tablet 3 4 Active Azelastine HCl 0.1 % Nasal Solution (Astelin)Indicat ions:Chronic rhinitis Administer 1 [place] into nostril in the morning and 1 [place] before bedtime. 90 mL 1 4 Active Montelukast Sodium 10 MG Oral Tablet (Singulair) Take 1 Tablet by mouth in the morning. 30 Tablet 4 Active Azithromycin 250 MG Oral Tablet (Zithromax Z-Orlin) Take two tablets by mouth on first day, then 1 tablet daily until gone 6 Tablet 4 Active Triamcinolone Acetonide 0.1 % External Ointment (Aristocort)Scarlett cations:Other eczema Apply topically to affected area 2 times a day. To affected area. 80 g 5 3 02/21/20 24 Discontinued Prevagen 10 MG Oral Capsule (Apoaequorin) Take by mouth. 02/21/20 24 Discontinued Lidocaine 5 % External Patch (Lidoderm)Indica tions:Closed [...] Severe. 20 Tablet 3 02/21/20 24 Discontinued Azelastine HCl 0.1 % Nasal Solution (Astelin)Indicat ions:Chronic rhinitis Administer 1 [place] into nostril in the morning and 1 [place] before bedtime. 30 mL 11 4 02/21/20 24 Discontinued(Ref ill) documented as of this encounter (statuses as of 02/21/2024) Active Problems Problem Noted Date Diagnosed Date [...] as of this encounter (statuses as of 02/21/2024) Immunizations Name Administration Dates Next Due COVID-19 [...] 11/07/2023 Does the household have a re lar source of income? (Household - for ages [...] Sign Reading Time Taken Comments Blood Pressure 122/74 02/21/2024 3:57 PM EDT Pulse 68 02/21/2024 3:57 PM EDT Temperature 36.1 C (97 F) 02/21/2024 3:57 PM EDT Respiratory Rate 18 02/21/2024 3:57 PM EDT Oxygen Saturation 95% 02/21/2024 3:57 PM EDT Inhaled Oxygen Concentration - - Weight 102.2 kg (225 lb 3.2 oz) 02/21/2024 3:57 PM EDT Height 175.3 cm (5' 9") 02/21/2024 3:57 PM EDT Body Mass Index 33.26 02/21/2024 3:57 PM EDT documented in this encounter Functional [...] as of this encounter Progress Notes * Loan Sterling PA-C - 02/21/2024 4:04 PM EDT Images from the original note were not included. History of Present Illness Clovis Bradford is a 73 year old male that presents for Diarrhea (Pt states that he is here due to diarrhea, coughing and fatigue. Ongoing for about a month ) Has had diarrhea for the last month now The first time was an issue Had dinner at a restaurant 10 minutes later he had explosive diarrhea Ever since then had occasional bouts of this Waking him in the night Has had rare normal bm does not have diarrhea Had the same food Noting else changed Having multiple bouts a day Between 7-9, he had 8 episodes of diarrhea Denies blood or mucus No pain No fever or chills Has allergy issues and pnd Some sinus drainage Does at times wake up choking from phlegm When he coughs it sounds like Elfego Stoney. Cough is not in his chest It clogs in his throat Has had a little reflux lately too. Taking coricidin and dayquil He sleeps through tenight but is napping once or twice a day Quite fatigued Quality of sleep is good - if he wakes 8 hours he is rested but then 2 hours later hei s napping This is going on longer than diarrhea and cough Pushing himself to go to the gym. Not easy Physical Exam Vitals: 02/21/24 1557 Temp: 36.1 C (97 F) Pulse: 68 Resp: 18 SpO2: 95% BP: 122/74 BMI: 33.24 BP Readings from Last 3 Encounters: 02/21/24 122/74 11/07/23 110/60 10/25/23 124/88 Wt Readings from Last 3 Encounters: 02/21/24 102.2 kg (225 lb 3.2 oz) 11/07/23 103.8 kg (228 lb 14.4 oz) 10/25/23 103.2 kg (227 lb 9.6 oz) BMI Readings from Last 3 Encounters: 02/21/24 33.26 kg/m 11/07/23 33.08 kg/m 10/25/23 32.66 kg/m Ht Readings from Last 3 Encounters: 02/21/24 1.753 m (5' 9") 11/07/23 1.772 m (5' 9.75") 09/08/23 1.778 m (5' 10") General: alert, healthy, and no distress Head: Normocephalic, No masses, lesions, tenderness or abnormalities Eye Exam: PERRLA, extraocular movements intact, conjunctiva are pink and non- injected, sclera clear Ears: External ears normal, Canals clear, TM's Normal Nose: no purulent discharge, mucosal edema, mucosal erythema Oropharynx: no exudate, no erythema, lips, buccal mucosa, and tongue normal, mucous membranes are moist, and post nasal drip Neck: supple, no bruits, thyroid normal size, non-tender, without nodularity, large tender anteriorcervical adenopathy bilaterally Heart: regular rate & rhythm, no murmur, no gallops, S-1 normal, and S-2 normal Lungs: chest symmetric with normal AP diameter, no chest deformities noted, no chest wall tenderness, lungs clear to auscultation Abdomen: abdomen soft, non-tender, normal bowel sounds, and no masses or organomegaly Back: back symmetric, no curvature, no costovertebral angle tenderness, range of motion is normal Extremities: less than 2 second capillary refill, no joint deformities, effusion, or inflammation Skin: skin color, texture, turgor are normal, no rashes or significant lesions Assessment and Plan Diarrhea of presumed infectious origin (Primary) - TSH; Future; Expected date: 02/21/2024 - GLIADIN (DEAMIDATED) IGA AND IGG ANTIBODIES; Future; Expected date: 02/21/2024 - TISSUE TRANSGLUTAMINASE IGA ANTIBODY; Future; Expected date: 02/21/2024 - GASTROINTESTINAL PATHOGEN PANEL, STOOL; Future; Expected date: 02/21/2024 - OVA AND PARASITES, CONCENTRATE AND PERMANENT SMEAR; Future; Expected date: 02/21/2024 - CLOSTRIDIUM DIFFICILE, PCR; Future; Expected date: 02/21/2024 Type 2 diabetes mellitus with stage 3a chronic kidney disease, without long-term current use of insulin (HCC) - TESTOSTERONE: TOTAL, FREE AND BIOAVAILABLE; Future; Expected date: 02/21/2024 Malignant neoplasm of prostate (HCC) - labs current Depression, unspecified depression type - stable on meds Malaise and fatigue - TSH; Future; Expected date: 02/21/2024 - T4, FREE; Future; Expected date: 02/21/2024 - 25-HYDROXY VITAMIN D; Future; Expected date: 02/21/2024 - GLIADIN (DEAMIDATED) IGA AND IGG ANTIBODIES; Future; Expected date: 02/21/2024 - TISSUE TRANSGLUTAMINASE IGA ANTIBODY; Future; Expected date: 02/21/2024 - TESTOSTERONE: TOTAL, FREE AND BIOAVAILABLE; Future; Expected date: 02/21/2024 Chronic rhinitis - Azelastine HCl 0.1 % Nasal Solution (Astelin); Administer 1 [place] into nostril in the morning and1 [place] before bedtime. Other orders - Montelukast Sodium 10 MG Oral Tablet (Singulair); Take 1 Tablet by mouth in the morning. - Azithromycin 250 MG Oral Tablet (Zithromax Z-Orlin); Take two tablets by mouth on first day, then 1tablet daily until gone Treat sinus conegstion May need omeprazole upped or switched Stool testing Labs for energy Wrap-Up Time: I spent a total of 30-39 minutes (exact time 35 mins) on the date of service in preparation, delivery, and documentation of the care provided to Clovis Bradford excluding any time spent in the performance of separately billed services. Loan Sterling PA-C 02/21/2024 4:35 PM documented in this encounter Nursing Notes * Nancy Gonzalez LPN - 02/21/2024 3:57 PM EDT Clovis Bradford is a 73 year old male who presents today for Chief Complaint Patient presents with Diarrhea Pt states that he is here due to diarrhea, coughing and fatigue. Ongoing for about a month documented in this encounter Plan of Treatment Upcoming Encounters Date Type Department Care Team (Late st Contact Info) Description 04/30/2024 9:40 AM EDT Office Visit [facility] [address] [place] [address] Osito Alfaro MD [address] [place] [address] 11/11/2024 9:00 AM EDT Nurse Only Ancillary Department, [facility] [address] [place] [address], [place] [phone] [place], Nurse [facility] [address], [place] [phone] Scheduled Orders Name Type Priority Associated Diagnoses Orde r Schedule TSH Lab Routine Diarrhea of presumed infectious origin Malaise and fatigue Expected: 02/21/2024 (Approximate), Expires: 02/20/2025 T4, FREE Lab Routine Malaise and fatigue Expected: 02/21/2024 (Approximate), Expires: 02/20/2025 25-HYDROXY VITAMIN D Lab Routine Malaise and fatigue Expected: 02/21/2024 (Approximate), Expires: 02/20/2025 GLIADIN (DEAMIDATED) IGA AND IGG ANTIBODIES Lab Routine Diarrhea of presumed infectious origin Malaise and fatigue Expected: 02/21/2024 (Approximate), Expires: 02/20/2025 TISSUE TRANSGLUTAMINASE IGA ANTIBODY Lab Routine Diarrhea of presumed infectious origin Malaise and fatigue Expected: 02/21/2024 (Approximate), Expires: 02/20/2025 TESTOSTERONE: TOTAL, FREE AN D BIOAVAILABLE Lab Routine Type 2 diabetes mellitus with stage 3a chronic kidney disease, without long-term current use of insulin (HCC) Malaise and fatigue Expected: 02/21/2024 (Approximate), Expires: 02/20/2025 GASTROINTESTINAL PATHOGEN PANEL, STOOL Lab Routine Diarrhea of presumed infectious origin Expected: 02/21/2024 (Approximate), Expires: 02/20/2025 OVA AND PARASITES, CONCENTRATE AND PERMANENT SMEAR Lab Routine Diarrhea of presumed infectious origin Expected: 02/21/2024, Expires: 02/20/2025 CLOSTRIDIUM DIFFICILE, PCR Lab Routine Diarrhea of presumed infectious origin Expected: 02/21/2024 (Approximate), Expires: 02/20/2025 Scheduled Procedures Name Priority Associated Diagnoses Date/Ti me COLONOSCOPY FLEXIBLE PROXIMAL DIAGNOSTIC Recall History of colon polyps Health Maintenance Due Date Last Done Comments Diabetic Eye Exam 1966 Diabetic Foot Exam 1968 Hepatitis C Screening 1968 COVID-19 Vaccine ( season) 2023 08/18/2021 Zoster Vaccines (2 of 2) 12/20/2023 10/25/2023 Influenza Vaccine (FLU shot) (#1) 2024 06/13/2023, 05/21/2022, 06/29/2020, Additional history exists GFR 04/26/2024 10/25/2023, 11/0 02/2023, 03/15/2023, Additional history exists HbA1c 04/26/2024 10/25/2023, 11/0 02/2023, 03/15/2023, Additional history exists Albumin/Creatinine Ratio 06/13/2024 06/13/2023, 12/05 CKD HGB USE SMARTSET 49997 10/24/202410/24, 09/20/2022, 09/20/2022, Additional history exists CKD PHOS USE SMARTSET 34657 10/24/2024 10/25/2023 Depression Monitoring 11/06/2024 11/07/2023 Colonoscopy [...] encounter Medical Devices Implanted Type Area Paper Coating Supervisor Device Identifier Shelf Expiration Date Model / Serial / Lot Kit Accessory Ams 700 [id number] - [id number] Implanted:Qty : 1 on 03/17/2022 by Trevor Khanna MD at OR [facility] N/A: Scrotum [employer] [id number] 01/19/2027 [id number] / / [id number] Rte, Snapcone, Cx.Lgx 0.5cm - [id number] Implanted:Qty : 1 on 03/17/2022 by Trevor Khanna MD at OR [facility] N/A: Penis [employer] : UROLOGY [id number] 10/20/2026 [id number] / / [id number] Cx Precon Ms 21cm Ps 12cm - [id number] Implanted:Qty : 1 on 03/17/2022 by Trevor Khanna MD at OR [facility] N/A: Penis [employer] [id number] 08/26/2023 [id number] / / [id number] Resvr Conceal [id number] - [id number] Implanted:Qty : 1 on 03/17/2022 by Trevor Khanna MD at OR [facility] N/A: Pelvis [employer] [id number] 11/17/2023 [id number] / / [id number] documented as of this encounter Visit Diagnoses Diagnosis Diarrhea of presumed infectious origin- Primary Type 2 diabetes mellitus with stage 3a chronic kidney disease, without long-term current use of insulin (HCC) Malignant neoplasm of prostate (HCC) Malignant neoplasm of prostate Depression, unspecified depression type Malaise and fatigue Other malaise and fatigue Chronic rhinitis documented in this encounter Advance Directives * Full Code (Latest Code Status on File) Date Activated Date Inactivated Comments 03/17/2022 10:18 AM 03/18/2022 2:38 PM Question Answer Comments Discussion of Advance Directives occurred with: Not Discussed Care Teams Commissioner Of Conciliation Relationship Specialty Start Date End Date Osito Alfaro MD [address] [place] [address] PCP - General Family Medicine 09/01/21 documented as of this encounter
--- OUTSIDE RECORDS SUMMARY | 2024-05-23 15:14 | External Medical Summary ---
Author Name Unknown Address Unknown Organization K01:[facility]ATORY [facility] - [address] [place] [address] Laboratory Report Ordering Provider Test Date Status DEREJE SCHAFER 03/01/2024 12:48:01 Final Observation Date Value Abnormality Reference (Units ) Status T4, Free 03/01/2024 12:48:01 1.0 0.9-1.7 (n g/dL) Final Performing Location LAB[facility]ORY [facility] - [address] [place] [address]
--- OUTSIDE RECORDS SUMMARY | 2024-05-23 15:14 | External Medical Summary ---
Author Name Unknown Address Unknown Organization K01:LABORATORY [facility] [place] - [address] [place] [address] Laboratory Report Ordering Provider Test Date Status DEREJE SCHAFER 03/01/2024 12:48:01 Final Deficient: <20 ng/mL
Ins ufficient: 20-29 ng/mL
Recommended/Optimum:30-50 ng/mL

Vitamin D intoxication is rare. If suspicious of Vitamin D toxicity, evaluation of serum Calcium and PTH is recommended. Observation Date Value Abnormality Reference (Units ) Status 25-OH Vitamin D total 03/01/2024 12:48:01 47 >19 (ng/mL) Final Performing Location LABORATORY [facility] - [address] [place] [address]
--- OUTSIDE RECORDS SUMMARY | 2024-05-23 15:14 | External Medical Summary | Summary of Care ---
Author Name Unknown Organization [facility] Address [address] [place] [address] Phone [phone] Care Team Providers Care Rv Repair Technician Name Role Phone Osito Alfaro MD Primary Care Provider [phone] Reason for Visit * Reason Comments Outpatient Testing Encounter Details Date Type Department Care Team (Late st Contact Info) Description 02/27/2024 9:00 AM EDT Laboratory Laboratory, [address] [address] [address], Specimen Drop Off [facility] [address] [place], [place] [id number] Diarrhea of presumed infectious origin Allergies Active Allergy Reactions Criticality Noted Date [...] Nasal Solution (Astelin)Indicatio ns:Chronic rhinitis Administer 1 [place] into nostril in the morning and 1 Clim[place] before bedtime. 90 mL 1 02/21/2024 Active [...] mRNA, LNP-s, No Pre serve, 2-Dose Series ([employer]) 08/18/2021 Pneumococcal Conjugate Vacc, 13 Valent (Prevnar) [...] Description 04/30/2024 9:40 AM EDT Office Visit [facility], [place] [address] [place] [address] Osito Alfaro MD [address] [place] [facility] [place] [address] 11/11/2024 9:00 AM EDT Nurse Only Ancillary Department, [place] [address] [facility] [address] [place], Nurse Annual [facility] [address] [place] [facility] [place] [address] Pending Results Name Type Priority Associated Diagnoses Date /Time CLOSTRIDIUM DIFFICILE, PCR Lab Routine Diarrhea of presumed infectious origin 02/27/2024 9:01 AM EDT GASTROINTESTINAL PATHOGEN PANEL, STOOL Lab Routine Diarrhea of presumed infectious origin 02/27/2024 9:01 AM EDT OVA AND PARASITES, CONCENTRATE AND PERMANENT SMEAR Lab Routine Diarrhea of presumed infectious origin 02/27/2024 9:01 AM EDT GASTROINTESTINAL PATHOGEN PANEL PCR Lab Routine Diarrhea of presumed infectious origin 02/27/2024 9:01 AM EDT GASTROINTESTINAL PATHOGEN PANEL CULTURE Lab Routine Diarrhea of presumed infectious origin 02/27/2024 9:01 AM EDT Scheduled Procedures Name Priority Associated [...] 06/13/2024 06/13/2023, 12/05 CKD HGB USE SMARTSET 71743 10/24/202410/24, 09/20/2022, 09/20/2022, Additional history exists CKD PHOS USE SMARTSET 35746 10/24/2024 10/25/2023 Depression Monitoring 11/06/2024 11/07/2023 Colonoscopy [...] this encounter Medical Devices Implanted Type Area Financial Services Director Device Identifier Shelf Expiration Date Model / Serial / Lot Kit Accessory Ams 700 [id number] - [id number] Implanted:Qty : 1 on 03/17/20[place] [facility] [place] Scrotum [employer] [id number] 01/19/2027 [id number] / / [id number] Rte, Snapcone, Cx.Lgx 0.5cm - [id number] Implanted:Qty : 1 on 03/17/2022 by [place] Kh[place] [facility] [place]: Penis [employer] : UROLOGY [id number] 10/20/2026 [id number] / / [id number] Cx Precon Ms 21cm Ps 12cm - [id number] Implanted:Qty : 1 on 03/17/2022 by Trevor Khanna [place] [facility] [place]/A: Penis [employer]OSTON [employer] [id number] 08/26/2023 [id number] / / [id number] Resvr Conceal [id number] - [id number] Implanted:Qty : 1 on 03/17/2022 by Trevor Khanna MD [place] [facility] [place]/A: Pelvis [employer] [id number] 11/17/2023 [id number] / / [id number] documented as of this encounter Visit Diagnoses Diagnosis Diarrhea of presumed infectious origin documented in this encounter Additional Health Concerns Infection Onset Date Last Indicated Resolved Time C. difficile Rule-Out 02/27/2024 02/27/2024 Gastrointestinal Rule-Out 02/27/2024 02/27/2024 documented as of this encounter Advance Directives * Full Code (Latest Code Status on File) Date Activated Date Inactivated Comments 03/17/2022 10:18 AM 03/18/2022 2:38 PM Question Answer Comments Discussion of Advance Directives occurred with: Not Discussed Care Teams Rv Repair Technician Relationship Specialty Start Date End Date Osito Alfaro MD [address] [place] [facility] [place] [address] PCP - General Family Medicine 09/01/21 documented as of this encounter
--- OUTSIDE RECORDS SUMMARY | 2024-05-23 15:14 | External Medical Summary | Summary of Care ---
Author Name Unknown Organization [facility] Address [address] [place] [address] Phone [phone] Care Team Providers Care Client Development Manager Name Role Phone Osito Alfaro MD Primary Care Provider [phone] Reason for Referral * Evaluate & Treat - Unlimited Visits (Within 10 days (routine)) - Authorized Specialty Diagnoses / Procedures Referred By Contac t Referred To Contact Police Chief Deputy / Nutrition Services Diagnoses Type 2 diabetes mellitus with stage 3a chronic kidney disease, without long-term current use of insulin ([facility]) Kareen Kunz, [place] [address] [facility] [place] [address] Referral ID Status Reason Start Date Expiration Date Visits Requested Visits Authorized [id number] Authorized Specialty Services Required 02/28/[phone] Question Answer Referral Priority Within 10 days (routine) Where should this appointment be scheduled? [facility] Reason for Referral Type 2 Diabetes Is this a newly diagnosed condition? Yes Comments This referral is for Diabetes Self-Management Training (DSMT) by a recognized [place] Diabetes Association (ADA) healthcare educator: Nurse (RN), Registered Dietitian Drapery Supervisor (RDN), and/or Diabetes Medical Nutrition Therapy (MNT) Management (dietitian only). Diabetes educators are responsible for assessing the participant's diabetes education needs, and providing diabetes self-management training in accordance with the standards set by the ADA for DSMT. Any adjustment in diabetes therapy will be made within the guidelines of standards of practice and ising approved policies and procedures. I understand that the healthcare educator will keep me informed. Areas of Education: Pathophysiology Nutrition Physical Activity Medications Monitoring Acute Complications Chronic Complications Psychosocial Management Promote Health/Behavior Change Participant will be offered 1:1 education training if there is a lack of classes available within 2 months. Providers can also order 1:1 training if indicated for participant for the following reasons: 1:1 Training for Insulin Initiation Participant Inappropriate for Class Setting By my electronic signature, I understand that my patient will be offered the comprehensive ADA content area above unless deemed not appropriate of I specify otherwise here: Reason for Visit * Reason Onset Date Comments Referral 02/27/2024 [facility] referral req uest Difficulty Chewing 02/27/2024 Encounter Details Date Type Department Care Team ([facility] st Contact Info) Description 02/27/2024 Telephone Nutrition Services [place] [address] [place] [address] Osito Alfaro MD [address] [place] [address] Referral ([facility] referral request); Difficult... Allergies Active Allergy Reactions Criticality Noted Date Comments Cat Dander 09/01/2016 Warfarin Hives 09/01/2016 Dust Cough 03/16/2009 Mold Cough 03/16/2009 Other Allergy (See Comments) 04/04/2022 Grass - sneezing/sinus Pollen Cough 03/16/2009 Also grass documented as of this encounter (statuses as of 02/28/2024) Medications Medication Sig Dispensed Refills Start Date [...] Nasal Solution (Astelin)Indicatio ns:Chronic rhinitis Administer 1 [place] into nostril in the morning and 1 [place] before bedtime. 90 mL 1 02/21/2024 Active Montelukast Sodium 10 MG Oral Tablet (Singulair) Take 1 Tablet by mouth in the morning. 30 Tablet 02/21/2024 Active Azithromycin 250 MG Oral Tablet (Zithromax Z-Orlin) Take two tablets by mouth on first day, then 1 tablet daily until gone 6 Tablet 02/21/2024 Active documented as of this encounter (statuses as of 02/28/2024) Active Problems Problem Noted Date Diagnosed Date [...] as of this encounter (statuses as of 02/28/2024) Resolved Problems Problem Noted Date Diagnosed Date Resolved Date Prediabetes 01/16/2023 02/28/2024 Overview: Per Prediabetes protocol documented as of this encounter (statuses as of 02/28/2024) Immunizations Name Administration Dates Next Due COVID-19 mRNA, LNP-s, No Pre serve, 2-Dose Series ([employer]Vend) 08/18/2021 Pneumococcal Conjugate Vacc, 13 Valent (Prevnar) [...] encounter Miscellaneous Notes * Telephone Encounter - Chetan Pizarro Referral - 02/27/2024 2:04 PM EDT This participant is newly diagnosed with diabetes. Attached is a pended [place] [employer] referral for comprehensive diabetes education. Please sign the orders if you agree to have the participant have diabetes self- management training and education with one of our educators. If you have questions, please route to [phone]. This list was system generated to help educate patients with diabetes early on. If you believe this patient does not have diabetes, please decline the order. Please associate the appropriate diabetes diagnosis to this order. Once signed, it will automatically route to the Nutrition workqueue and your patient will be contacted. This is an automated user. Please do not reply. documented in this encounter Plan of Treatment Upcoming Encounters Date Type Department Care Team (Late st Contact Info) Description 04/30/2024 9:40 AM EDT Office Visit Family Practice, [place] [address] [place] [phone] Osito Alfaro MD [address] [place] [address] 11/11/2024 9:00 AM EDT Nurse Only Ancillary Department, [place] [address] [place] [address] [place], Nurse [facility] [address], [place] [id number] Scheduled Procedures Name Priority Associated Diagnoses Date/Ti me COLONOSCOPY FLEXIBLE PROXIMAL DIAGNOSTIC Recall History of colon polyps Scheduled Referrals Name Type Priority Associated [...] 06/13/2024 06/13/2023, 12/05 CKD HGB USE SMARTSET 85727 10/24/202410/24, 09/20/2022, 09/20/2022, Additional history exists CKD PHOS USE SMARTSET 97658 10/24/2024 10/25/2023 Depression Monitoring 11/06/2024 11/07/2023 Colonoscopy [...] this encounter Medical Devices Implanted Type Area Automation Architect Device Identifier Shelf Expiration Date Model / Serial / Lot Kit Accessory Ams 700 [id number] - [id number] Implanted:Qty : 1 on 03/17/2022 by Trevor Khanna MD [place] [facility] [place]/A: Scrotum [employer] [id number] 01/19/2027 [id number] / / [id number] Rte, Snapcone, Cx.Lgx 0.5cm - [id number] Implanted:Qty : 1 on 03/17/2022 by Trevor Khanna MD at [place] [facility] [place] N/A: Penis [employer] : UROLOGY [id number] 10/20/2026 [id number] / / [id number] Cx Precon Ms 21cm Ps 12cm - [id number] Implanted:Qty : 1 on 03/17/2022 by Trevor Khanna MD at [place] [facility] [place] N/A: Penis [employer] [id number] 08/26/2023 [id number] / / [id number] Resvr Conceal 256968-79 - [id number] Implanted:Qty : 1 on 03/17/2022 by Trevor Khanna MD at [place] [facility] [place] N/A: Pelvis [employer] [id number] 11/17/2023 [id number] / / [id number] documented as of this encounter Visit Diagnoses Diagnosis Type 2 diabetes mellitus with stage 3a chronic kidney disease, without long-term current use of insulin (HCC)- Primary documented in this encounter Additional Health Concerns Infection Onset Date Last Indicated Resolved Time C. difficile Rule-Out 02/27/2024 02/27/20242023 11:18 PM EDT Gastrointestinal Rule-Out 02/27/2024 02/27/2024 documented as of this encounter Advance Directives * Full Code (Latest Code Status on File) Date Activated Date Inactivated Comments 03/17/2022 10:18 AM 03/18/2022 2:38 PM Question Answer Comments Discussion of Advance Directives occurred with: Not Discussed Care Teams Client Development Manager Relationship Specialty Start Date End Date Osito Alfaro MD [address] [place] [address] PCP - General Family Medicine 09/01/21 documented as of this encounter
--- OUTSIDE RECORDS SUMMARY | 2024-05-23 15:14 | External Medical Summary | Summary of Care ---
Author Name Unknown Organization [facility] Address [address] [place] [address] Phone [phone] Care Team Providers Care Institutional Aide Name Role Phone Osito Alfaro MD Primary Care Provider [phone] Reason for Visit * Reason Onset Date Comments Advice 02/29/2024 Requesting to sp eak to Encounter Details Date Type Department Care Team (Late st Contact Info) Description [facility] [address] [facility] [place] [address] Osito Alfaro MD [address] [place] [address] Advice (Requesting to speak to ) Allergies Active Allergy Reactions Criticality Noted Date Comments Cat Dander 09/01/2016 Warfarin Hives 09/01/2016 Dust Cough 03/16/2009 Mold Cough 03/16/2009 Other Allergy (See Comments) 04/04/2022 Grass - sneezing/sinus Pollen Cough 03/16/2009 Also grass documented as of this encounter (statuses as of 02/29/2024) Medications Medication Sig Dispensed Refills Start Date [...] Nasal Solution (Astelin)Indicatio ns:Chronic rhinitis Administer 1 [place] into nostril in the morning and 1 [place] before bedtime. 90 mL 1 02/21/2024 Active [...] as of this encounter (statuses as of 02/29/2024) Active Problems Problem Noted Date Diagnosed Date [...] as of this encounter (statuses as of 02/29/2024) Resolved Problems Problem Noted Date Diagnosed Date Resolved Date Prediabetes 01/16/2023 02/28/2024 Overview: Per Prediabetes protocol documented as of this encounter (statuses as of 02/29/2024) Immunizations Name Administration Dates Next Due COVID-19 [...] encounter Miscellaneous Notes * Telephone Encounter - Loan Sterling PA-C - 02/29/2024 3:54 PM EDT Labs not done Stool testing partially back -incomplete at this time Start colestid for urgency Wait on the rest of the test Loan Sterling PA-C 02/29/2024 3:54 PM * Telephone Encounter - Melissa Wharton OSA - 02/29/2024 3:19 PM EDT Patient calling to speak to Loan JACINTO, He stated he wanted to speak to her about his current problem , please contact [phone] documented in this encounter Plan of Treatment Upcoming Encounters Date Type Department Care Team (Late st Contact Info) Description 04/30/2024 9:40 AM EDT Office Visit [facility], [place] [address] [place] [address] Osito Alfaro MD [address], [place] [address] 11/11/2024 9:00 AM EDT Nurse Only Ancillary Department, [place] [address], [place] [address] [place], Nurse Annual Wellness [address] [place] [address] Scheduled Procedures Name Priority Associated [...] 06/13/2024 06/13/2023, 12/05 CKD HGB USE SMARTSET 80055 10/24/202410/24, 09/20/2022, 09/20/2022, Additional history exists CKD PHOS USE SMARTSET 89023 10/24/2024 10/25/2023 Depression Monitoring 11/06/2024 11/07/2023 Colonoscopy [...] this encounter Medical Devices Implanted Type Area Adjuster Leader Device Identifier Shelf Expiration Date Model / Serial / Lot Kit Accessory Ams 700 [id number] - [id number] Implanted:Qty : 1 on 03/17/2022 [place] Kh[place] [facility] [place]: Scrotum [employer] [id number] 01/19/2027 [id number] / / [id number] Rte, Snapcone, Cx.Lgx 0.5cm - [id number] Implanted:Qty : 1 on 03/17/2022 by Trevor Khanna MD [place] [facility] [place]: Penis [employer] : UROLOGY [id number] 10/20/2026 [id number] / / [id number] Cx Precon Ms 21cm Ps 12cm - [id number] Implanted:Qty : 1 on 03/17/2022 by Trevor Khanna MD [place] [facility] [place]: Penis [employer] [id number] 08/26/2023 [id number] / / [id number] Resvr Conceal 691344-52 - [id number] Implanted:Qty : 1 on 03/17/2022 by Trevor Khanna MD [place] [facility] [place]: Pelvis [employer] [id number] 11/17/2023 [id number] documented as of this encounter Visit Diagnoses Diagnosis Diarrhea of presumed infectious origin- Primary documented in this encounter Advance Directives * Full Code (Latest Code Status on File) Date Activated Date Inactivated Comments 03/17/2022 10:18 AM 03/18/2022 2:38 PM Question Answer Comments Discussion of Advance Directives occurred with: Not Discussed Care Teams Institutional Aide Relationship Specialty Start Date End Date Osito Alfaro MD [address] [place] [address] PCP - General Family Medicine 09/01/21 documented as of this encounter
--- OUTSIDE RECORDS SUMMARY | 2024-05-23 15:14 | External Medical Summary | Summary of Care ---
Author Name Unknown Organization [facility] Address [address] [place] [address] Phone [phone] Care Team Providers Care Footwear Stitcher Name Role Phone Onur Alfaro MD Primary Care Provider [phone] Reason for Visit * Reason Onset Date Comments Medication Refill 02/15/2024 Encounter Details Date Type Department Care Team (Late st Contact Info) Description 02/15/2024 Refill [facility] [address] [facility] [place] [address] Onur Alfaro MD [address] [place] [address] Allergies Active Allergy Reactions Criticality [...] Active Triamcinolone Acetonide 0.1 % External Ointment (Aristocort)Indic ations:Other eczema Apply topically to affected area 2 [...] Oral Capsule (Apoaequorin) Take by mouth. Active Sildenafil Citrate 20 MG Oral Tablet [...] 02/20/2023 Active Lidocaine 5 % External Patch (Lidoderm)Indicat ions:Closed fracture of one rib, unspecified laterality, sequela Place 1 Patch over 12 hours topically on the skin daily. 30 Patch 05/30/2023 Active Additional Information Patient not taking.Reported on 09/06/2023 oxyCODONE HCl 5 MG Oral Tablet (Oxy IR)Indications:Cl osed fracture of one rib with routine healing, unspecified laterality, subsequent encounter Take 1 Tablet by mouth every 6 hours as needed for Pain, Severe. 20 Tablet 06/07/2023 Active Additional Information Patient not taking.Reported on 09/06/2023 Omeprazole 20 MG Oral Capsule Delayed Release (PriLOSEC) Take 1 capsule by mouth in the morning 90 Capsule 1 07/28/2023 Active Escitalopram Oxalate 10 MG Oral Tablet (Lexapro)Indicati ons:Generalized anxiety disorder Take 1 Tablet by mouth in the morning. 30 Tablet 5 09/08/2023 Active Azelastine HCl 0.1 % Nasal Solution (Astelin)Indicati ons:Chronic rhinitis Administer 1 [place] into nostril in the morning and 1 [place] before bedtime. 30 mL 11 10/25/2023 Active Rosuvastatin Calcium 10 MG Oral Tablet (Crestor)Indicati ons:Dyslipidemia, goal LDL below 70 TAKE 1 TABLET BY MOUTH ONCE DAILY IN THE EVENING 90 Tablet 3 12/25/2023 Active Lisinopril 20 MG Oral Tablet (Prinivil) Take 1 Tablet by mouth in the morning. 90 Tablet 2 01/31/2024 Active Fluticasone Propionate 50 MCG/ACT Nasal Suspension (Flonase)Indicati ons:Chronic rhinitis Administer 2 Sprays into each nostril in the morning. 16 g 5 01/31/2024 Active amLODIPine Besylate 5 MG Oral Tablet (Norvasc) Take 1 Tablet by mouth in the morning. Once daily. 90 Tablet 3 02/16/2024 Active amLODIPine Besylate 5 MG Oral Tablet (Norvasc) Take 1 Tablet by mouth in the morning. Once daily. 90 Tablet 3 01/12/2023 Discontinue d(Refill) documented as of this encounter [...] mRNA, LNP-s, No Pre serve, 2-Dose Series ([employer]) 08/18/2021 Pneumococcal Conjugate Vacc, 13 Valent (Prevnar) [...] encounter Miscellaneous Notes * Telephone Encounter - Trev Abdullahi, [facility] - 02/16/2024 12:35 PM EDTSigned Prescriptions: Disp Refills amLODIPine Besylate 5 MG Oral Tablet (Norv*90 Tab*3 Sig: Take 1 Tablet by mouth in the morning. Once daily.Authorizing Provider: ONUR ALFARO User: TREV ABDULLAHI Electronically signed by Trev Abdullahi [facility] at 02/16/2024 12:35 PM EDT documented in this encounter Plan of Treatment Upcoming Encounters Date Type Department Care Team (Late st Contact Info) Description 04/30/2024 9:40 AM EDT Office Visit [facility], [place] [address] [place] [facility] [place] [facility] [place] [phone] Onur Alfaro MD [address] [place] [facility] [place] [address] 11/11/2024 9:00 AM EDT Nurse Only Ancillary Department, [place] [address] [place] [facility] [place] [place] [facility] [place] [address] [place], Nurse Annual Wellness [address] [place] [facility] [place] [address] Scheduled Procedures Name Priority Associated Diagnoses [...] 06/13/2024 06/13/2023, 12/05 CKD HGB USE SMARTSET 73578 10/24/202410/24, 09/20/2022, 09/20/2022, Additional history exists CKD PHOS USE SMARTSET 95621 10/24/2024 10/25/2023 HbA1c 10/24/2024 10/25/2023, 11/0 02/2023, [...] this encounter Medical Devices Implanted Type Area Internal Communications Manager Device Identifier Shelf Expiration Date Model / Serial / Lot Kit Accessory Ams 700 [id number] - [id number] Implanted:Qty : 1 on 03/17/2022 by Trevor Khanna MD at [place] [facility] [place] N/A: Scrotum [employer] [id number] 01/19/2027 [id number] / / [id number] Rte, Snapcone, Cx.Lgx 0.5cm - [id number] Implanted:Qty : 1 on 03/17/2022 by Trevor Khanna MD at [place] [facility] [place] N/A: Penis [employer] : UROLOGY [id number] 10/20/2026 [id number] / / [id number] Cx Precon Ms 21cm Ps 12cm - [id number] Implanted:Qty : 1 on 03/17/2022 by Trevor Khanna MD at [place] [facility] [place] N/A: Penis [employer] [id number] 08/26/2023 [id number] / / [id number] Resvr Conceal [id number] - [id number] Implanted:Qty : 1 on 03/17/2022 by Trevor Khanna MD at [place] [facility] [place] N/A: Pelvis [employer] [id number] 11/17/2023 [id number] / / [id number] documented as of this encounter Advance Directives * Full Code (Latest Code Status on File) Date Activated Date Inactivated Comments 03/17/2022 10:18 AM 03/18/2022 2:38 PM Question Answer Comments Discussion of Advance Directives occurred with: Not Discussed Care Teams Footwear Stitcher Relationship Specialty Start Date End Date Onur Alfaro MD [address] [place] [facility] [place] [address] PCP - General Family Medicine 09/01/21 documented as of this encounter
--- OUTSIDE RECORDS SUMMARY | 2024-05-23 15:14 | External Medical Summary | Summary of Care ---
Author Name Unknown Organization [facility] Address [address] [place] [address] Phone [phone] Care Team Providers Care Service Order Expediter Name Role Phone Onur Alfaro MD Primary Care Provider [phone] Reason for Visit * Reason Onset Date Comments Medication Refill 01/31/2024 Encounter Details Date Type Department Care Team (Late st Contact Info) Description 01/31/2024 Refill [facility] [address] [place] [facility] [place] [address] Onur Alfaro MD [address] [place] [address] Chronic rhinitis Allergies Active Allergy Reactions Criticality Noted Date Comments Cat Dander 09/01/2016 Warfarin Hives 09/01/2016 Dust Cough 03/16/2009 Mold Cough 03/16/2009 Other Allergy (See Comments) 04/04/2022 Grass - sneezing/sinus Pollen Cough 03/16/2009 Also grass documented as of this encounter (statuses as of 01/31/2024) Medications Medication Sig Dispensed Refills Start Date [...] Nasal Solution (Astelin)Indicati ons:Chronic rhinitis Administer 1 [place] into nostril in the morning and 1 [place] before bedtime. 30 mL 11 10/25/2023 Active [...] the morning. 16 g 5 01/31/2024 Active Lisinopril 20 MG Oral Tablet (Prinivil) Take 1 Tablet by mouth in the morning. 90 Tablet 2 01/12/2023 4 Discontinue d(Refill) Fluticasone Propionate 50 MCG/ACT Nasal Suspension (Flonase)Indicati ons:Chronic rhinitis Administer 2 Sprays into each nostril in the morning. 16 g 5 10/25/2023 4 Discontinue d(Refill) documented as of this encounter (statuses as of 01/31/2024) Active Problems Problem Noted Date Diagnosed Date [...] as of this encounter (statuses as of 01/31/2024) Immunizations Name Administration Dates Next Due COVID-19 [...] encounter Miscellaneous Notes * Telephone Encounter - Reta Live RP - 01/31/2024 3:14 PM EDTSigned Prescriptions: Disp Refills Lisinopril 20 MG Oral Tablet (Prinivil) 90 Tab*2 Sig: Take 1 Tablet by mouth in the morning.Authorizing Provider: ONUR ALFARO User: RETA LIVE Fluticasone Propionate 50 MCG/ACT Nasal Mcdowell*16 g 5 Sig: Administer 2 Sprays into each nostril in the morning.Authorizing Provider: ONUR ALFARO User: RETA LIVE documented in this encounter Plan of Treatment Upcoming Encounters Date Type Department Care Team (Late st Contact Info) Description 04/30/2024 9:40 AM EDT Office Visit [facility], [place] [address] [place] [id number] Onur Alfaro MD [address], [place] [address] 11/11/2024 9:00 AM EDT Nurse Only Ancillary Department, [place] [address] [facility] [place] [id number] [place], Nurse [facility] [address] [place] [address] Scheduled Procedures Name Priority Associated Diagnoses Date/Ti me COLONOSCOPY FLEXIBLE PROXIMAL DIAGNOSTIC Recall History of colon polyps Health Maintenance Due Date Last Done Comments Hepatitis C Screening 1968 COVID-19 Vaccine ( - 2022- season) 2023 08/18/2021 Zoster Vaccines (2 of 2) 12/20/2023 10/25/2023 GFR 04/26/2024 10/25/2023, 110 02/2023, 03/15/2023, Additional history exists Albumin/Creatinine Ratio 06/13/2024 06/13/2023, 12/05 CKD HGB USE SMARTSET 08070 10/24/202410/24, 09/20/2022, 09/20/2022, Additional history exists CKD PHOS USE SMARTSET 99269 10/24/2024 10/25/2023 HbA1c 10/24/2024 10/25/2023, 11/0 02/2023, [...] this encounter Medical Devices Implanted Type Area Air Plant Engineer Device Identifier Shelf Expiration Date Model / Serial / Lot Kit Accessory Ams 700 [id number] - [id number] Implanted:Qty : 1 on 03/17/2022 by Trevor Khanna [place] [facility] [place]: Scrotum Bloxr [id number] 01/19/2027 [id number] / / [id number] Rte, Snapcone, Cx.Lgx 0.5cm - [id number] Implanted:Qty : 1 on 03/17/2022 by Trevor Khanna MD [place] [facility] [place]A: Penis [employer] : UROLOGY [id number] 10/20/2026 [id number] / / [id number] Cx Precon Ms 21cm Ps 12cm - [id number] Implanted:Qty : 1 on 03/17/2022 by Trevor Khanna MD at [place] [facility] [place] N/A: Penis Bloxr [id number] 08/26/2023 [id number] / / [id number] Resvr Conceal [id number] - [id number] Implanted:Qty : 1 on 03/17/2022 by Trevor Khanna MD at [place] [facility] [place] N/A: Pelvis Bloxr [id number] 11/17/2023 [id number] / [id number] documented as of this encounter Visit Diagnoses Diagnosis Chronic rhinitis documented in this encounter Advance Directives * Full Code (Latest Code Status on File) Date Activated Date Inactivated Comments 03/17/2022 10:18 AM 03/18/2022 2:38 PM Question Answer Comments Discussion of Advance Directives occurred with: Not Discussed Care Teams Service Order Expediter Relationship Specialty Start Date End Date Onur Alfaro MD [address], [place] [id number] PCP - General Family Medicine 09/01/21 documented as of this encounter
--- OUTSIDE RECORDS SUMMARY | 2024-05-23 15:15 | External Medical Summary | Summary of Care ---
Author Name Unknown Organization [facility] Address [address] [facility] [place] [address] Phone [phone] Care Team Providers Care Production Planning Manager Name Role Phone Osito Alfaro MD Primary Care Provider [phone] Reason for Visit * Reason Comments eRx-Medication Refill Encounter Details Date Type Department Care Team (Late st Contact Info) Description 12/23/2023 Refill Cardiology, [facility] [address] [place] [address] Anton Malone MD [address] [place] [address] Dyslipidemia, goal LDL below 70 Allergies Active Allergy Reactions Criticality Noted Date Comments Cat Dander 09/01/2016 Warfarin Hives 09/01/2016 Dust Cough 03/16/2009 Mold Cough 03/16/2009 Other Allergy (See Comments) 04/04/2022 Grass - sneezing/sinus Pollen Cough 03/16/2009 Also grass documented as of this encounter (statuses as of 12/25/2023) Medications Medication Sig Dispensed Refills Start Date [...] 02/20/2023 Active Lidocaine 5 % External Patch (Lidoderm)Indica tions:Closed [...] Nasal Solution (Astelin)Indicat ions:Chronic rhinitis Administer 1 [place] into nostril in the morning and 1 [place] before bedtime. 30 mL 11 10/25/2023 Active Rosuvastatin Calcium 10 MG Oral Tablet (Crestor)Indicat ions:Dyslipidemi a, goal LDL below 70 TAKE 1 TABLET BY MOUTH ONCE DAILY IN THE EVENING 90 Tablet 3 12/25/2023 Active Rosuvastatin Calcium 10 MG Oral Tablet (Crestor)Indicat ions:Dyslipidemi a, goal LDL below 70 Take 1 Tablet by mouth every evening. 90 Tablet 3 11/09/2022 4 Discontinued documented as of this encounter (statuses as of 12/25/2023) Active Problems Problem Noted Date Diagnosed Date [...] as of this encounter (statuses as of 12/25/2023) Immunizations Name Administration Dates Next Due COVID-19 [...] Telephone Encounter - Carlene Mchugh CMA - 12/25/2023 9:45 AM EDTPending Prescriptions: Disp Refills Rosuvastatin Calcium 10 MG Oral Tablet (Cr*90 Tab*3 Sig: TAKE 1 TABLET BY MOUTH ONCE DAILY IN THE EVENING * Telephone Encounter - Carlene Mchugh CMA - 12/25/2023 9:43 AM EDT Scheduling - please contact patient to schedule overdue f/u. Last seen by Dr. Malone January 2023. Did you pend patient's preferred pharmacy and medication before forwarding?yes Pharmacy: [facility] [phone] Pending Prescriptions: Disp Refills Rosuvastatin Calcium 10 MG Oral Tablet (C*90 Tab*3 Sig: TAKE 1 TABLET BY MOUTH ONCE DAILY IN THE EVENING Last Visit: 01/17/2023 (in office), Visit date not found (telemedicine) Next Visit: Visit date not found If no future appointments scheduled, and last appointment is greater than a year ago, please schedule patient for a follow-up appointment Last date the medication was ordered: 11/09/22 Is this request for a controlled substance?No Urine Drug Screen:No results found for this or any previous visit. Patient Phone Numbers Labs: Lab Results Component Value Date/Time CREAT 1.2 10/25/2023 10:51 AM CREAT 1.4 (H) 05/18/2020 04:13 PM POTASSIUM 4.7 10/25/2023 10:51 AM LDLCALC 70 06/13/2023 09:10 AM ALT 19 06/13/2023 09:10 AM HGBA1C 6.4 (H) 10/25/2023 10:51 AM documented in this encounter Plan of Treatment Upcoming Encounters Date Type Department Care Team (Late st Contact Info) Description 04/30/2024 9:40 AM EDT Office Visit [facility], [place] [address] [place] [address] Osito Alfaro MD [address] [place] [address] 11/11/2024 9:00 AM EDT Nurse Only Ancillary Department, [place] [address] [place] [facility] [place] [address] [place], Nurse [facility] [address] [place] [address] Scheduled Procedures Name Priority Associated Diagnoses Date/Ti me COLONOSCOPY FLEXIBLE PROXIMAL DIAGNOSTIC Recall History of colon polyps Health Maintenance Due Date Last Done Comments Hepatitis C Screening 1968 COVID-19 Vaccine ( - 2022- season) 2023 08/18/2021 Zoster Vaccines (2 of 2) 12/20/2023 10/25/2023 GFR 04/26/2024 10/25/2023, 11/0 02/2023, 03/15/2023, Additional history exists Albumin/Creatinine Ratio 06/13/2024 06/13/2023, 12/05 CKD HGB USE SMARTSET 48204 10/24/202410/24, 09/20/2022, 09/20/2022, Additional history exists CKD PHOS USE SMARTSET 08954 10/24/2024 10/25/2023 HbA1c 10/24/2024 10/25/2023, 11/0 02/2023, 03/15/2023, Additional history exists Colonoscopy 08/17/2027 08/17/2022, [...] this encounter Medical Devices Implanted Type Area Scalping Machine Operator Device Identifier Shelf Expiration Date Model / Serial / Lot Kit Accessory Ams 700 [id number] - [id number] Implanted:Qty : 1 on 03/17/2022 by Trevor Khanna MD at [place] [facility] [place] N/A: Scrotum Mafengwo [id number] 01/19/2027 [id number] / / [id number] Rte, Snapcone, Cx.Lgx 0.5cm - [id number] Implanted:Qty : 1 on 03/17/2022 by Trevor Khanna MD at OR [facility] [place] N/A: Penis [employer] SCIENTIFIC : UROLOGY [id number] 10/20/2026 [id number] / / [id number] Cx Precon Ms 21cm Ps 12cm - [id number] Implanted:Qty : 1 on 03/17/2022 by Trevor Khanna MD at OR [facility] [place] N/A: Penis Mafengwo [id number] 08/26/2023 [id number] / / [id number] Resvr Conceal [id number] - [id number] Implanted:Qty : 1 on 03/17/2022 by Trevor Khanna MD at OR [facility] [place] N/A: Pelvis Mafengwo [id number] 11/17/2023 [id number] / / [id number] documented as of this encounter Visit Diagnoses Diagnosis Dyslipidemia, goal LDL below 70 Other and unspecified hyperlipidemia documented in this encounter Advance Directives * Full Code (Latest Code Status on File) Date Activated Date Inactivated Comments 03/17/2022 10:18 AM 03/18/2022 2:38 PM Question Answer Comments Discussion of Advance Directives occurred with: Not Discussed Care Teams Production Planning Manager Relationship Specialty Start Date End Date Osito Alfaro MD [address] [facility] [place] [address] PCP - General Family Medicine 09/01/21 documented as of this encounter
[2024-05-23] MEDS: ROSUVASTATIN CALCIUM 10 MG TAB PO SCH (21:45)
[2024-05-23] MEDS: TAMSULOSIN HCL 0.4 MG CAP PO SCH (21:45)
[2024-05-23] MEDS: MELATONIN 3 MG TAB PO PRN (21:54)
[2024-05-24 06:39] LABS: Basophils # (auto) 0.02 K/uL (0.00-0.20); Basophils % (auto) 0.1 %; Eosinophils # (auto) 0.01 K/uL (0.00-0.50); Eosinophils % (auto) 0.1 %; Hematocrit (blood only) 33.2 % (42.0-52.0); Hemoglobin 11.1 g/dl (14.0-18.0); Immature Granulocytes % (auto) 0.6 %; Lymphocytes # (auto) 1.77 K/uL (1.20-3.40); Lymphocytes % (auto) 10.4 %; Mean Corpuscular Hemoglobin 29.1 pg (25.0-34.0); Mean Corpuscular Hgb Conc 33.4 g/dL (32.0-36.0); Mean Corpuscular Volume 86.9 fL (80.0-100.0); Mean Platelet Volume 11.2 fL (9.4-12.4); Monocytes # (auto) 1.36 K/uL (0.11-0.59); Neutrophils # (auto) 13.69 K/uL (1.40-6.50); Neutrophils % (auto) 80.8 %; Platelet Count 241 K/uL (130-400); RDW Coefficient of Variation 14.7 % (11.5-14.5); RDW Standard Deviation 46.5 fL (36.4-46.3); Red Blood Count 3.82 M/uL (4.70-6.10); White Blood Count 16.95 K/ul (4.8-10.8)
[2024-05-24 07:01] LABS: Albumin Globulin Ratio 1.4 (0.9-2); Albumin Level 3.7 gm/dl (3.4-5.0); Bilirubin,Total 1.3 mg/dl (0.2-1.0); Creatinine Clr Calc Pharmacy 54.6 ml/min; Globulin 2.6 gm/dl (2.5-4.0); Magnesium 1.9 mg/dl (1.7-2.4); Phosphorus 3.6 mg/dl (2.5-4.9); Potassium 4.2 mmol/L (3.5-5.1); Total Protein 6.3 gm/dl (6.0-8.3)
[2024-05-24 07:31] VITALS: RESP 20
[2024-05-24] MEDS: LANTUS PER UNIT CHARGE SQ SCH (08:48)
[2024-05-24] MEDS: amLODIPine BESYLATE 5 MG TAB PO SCH (08:48)
[2024-05-24] MEDS: lisinopril 40 MG TAB PO SCH (08:49)
[2024-05-24 12:19] VITALS: BP 159/98; PULSE 78; TEMP 99; O2SAT 94
--- NOTE | 2024-05-24 12:25 | Hospitalist Progress Note ---
Date of Service May 24, 2024 Assessment & Plan (1) Severe sepsis: Plan Pt is a 74yoM with PMHx significant for hypertension, PVD, TIA, hyperlipidemia, prostate cancer radiation Rx/hormonal Rx, BPH, overactive bladder as per records, DM 2 diet-controlled, chronic anemia (baseline hemoglobin of 13) presenting with concern for odontogenic infection after recent procedure. Severe Sepsis SIRS plus lactic acidosis Pneumomediastinum Odontogenic Infection Patient presenting with possible odontogenic infection after recent procedure Chronic leukocytosis with tachycardia Face CT noting "large amount of air in the cervical soft tissues and right face concerning for pneumomediastinum." CT soft tissue neck noting "Extensive subcutaneous fascial and deep neck soft tissue emphysema demonstrated affecting more severely the right facial and mandibular soft tissues with edema/swelling. A small pneumoperitoneum is evident." CT chest noting "A small pneumomediastinum. Otherwise no acute intrathoracic abnormality noted. Likely subacute right ninth and 10th rib nondisplaced fracture. Significant subcutaneous/deep fascial soft tissue emphysema of the neck and right side upper chest wall seen." Small pneumomediastinum as per chest CT report possibly from deep neck space spread of odontogenic infection, patient without chest pain or SOB symptoms Right-sided rib fractures from fall from horse last year as per patient account lactate elevated at 4.6 and downtrending after fluid resuscitation Blood Cx x2 sets No growth to date Oral maxillofacial surgeon consulted, appreciate recs Infectious disease also consulted, appreciate recs Continue with IV Zosyn at this time Continue to monitor DMII Basal bolus insulin Continue to monitor Diet: DMII/HH DVT prophylaxis. SCDs, heparin SQ Dispo: Home once medically stable Admission and Anticipated Discharge Date Admission Date: May 23, 2024 Subjective patient was seen multiple times during the day. Initially in the morning, stating that he feels great symptoms are improving. Anxious for discharge Later with at bedside discussion that there is the need for infectious disease follow-up, consult pending. Patient continues to deny any chest pain, shortness of breath, fevers chills or night sweats. Review of Systems Review of Systems: All systems reviewed & are unremarkable except as noted in Subjective Physical Exam Physical Exam: General: Alert, oriented. Skin: right sided facial swelling and erythema Psych: Anxious mood and affect HEENT: right sided facial swelling and erythema CV: RRR Resp: Breath sounds clear bilaterally, no increased effort of breathing Abdomen: Soft, nontender Extremities: No edema in lower extremities bilaterally. Results & Data Results & Data Vital Signs (Past 12 Hours) Vital Signs Temp Pulse Pulse Resp BP Pulse Ox O2 Del Method 05/24/24 11:36 37.2 C 78 20 159/98 H 94 Room Air 05/24/24 07:31 36.4 C L 74 20 162/100 H 97 Room Air 05/24/24 05:15 59 L 05/24/24 02:46 36.9 C 87 18 137/82 95 Room Air Diagnostic Findings Face CT 05/22/24 22:34 CR Exam(s): CT FACIAL With Contrast IV Amt: 90 ml opti 320 EXAM: CT Head and Maxillofacial With Intravenous Contrast CLINICAL HISTORY: Reason for exam: right facial swelling, dental procedure today. TECHNIQUE: Axial computed tomography images of the head/brain and face with intravenous contrast. CTDI is 36.26 mGy and DLP is 719.01 mGy-cm. Automated exposure control was utilized for the study. A dose lowering technique was utilized adhering to the principles of ALARA. CONTRAST: Patient received 90 ml opti 320 of IV contrast COMPARISON: No relevant prior studies available. FINDINGS: Brain: Unremarkable. No hemorrhage. No edema. Normal enhancement. Ventricles: Unremarkable. No ventriculomegaly. Bones/joints: No acute fracture. Soft tissues: Extensive air in the deep cervical soft tissues and face with enlargement of the subcutaneous tissues over the right face and scalp. Sinuses: Chronic right maxillary and ethmoid sinusitis. Right maxillary and ethmoid sinusitis. No acute sinusitis. Mastoid air cells: Unremarkable as visualized. No mastoid effusion. Orbits: Unremarkable as visualized. IMPRESSION: There is a large amount of air in the cervical soft tissues and right face concerning for pneumomediastinum. Recommend CT scan of the chest for further evaluation. Communications: Call Doctor Pneumomediastinum Electronically signed by: Lynn Baker MD 05/23/24 00:41 AM Soft Tissue Neck CT 05/23/24 00:46 Exam(s): CT NECK Without Contrast EXAM: CT Neck Without Intravenous Contrast CLINICAL HISTORY: Reason for exam: dental procedure, abnl face CT, ? air. TECHNIQUE: Axial computed tomography images of the neck without intravenous contrast. CTDI is 19.98 mGy and DLP is 660.96 mGy-cm. Automated exposure control was utilized for the study. A dose lowering technique was utilized adhering to the principles of ALARA. COMPARISON: Maxillofacial CT: 05/22/2024 FINDINGS: Lack of IV contrast limits evaluation of soft tissues/vascular structures. Image quality is also degraded by motion artifact. Extensive subcutaneous facial and deep neck soft tissue emphysema demonstrated bilaterally, affecting more severely the right facial and mandibular soft tissues. There is a small pneumomediastinum present as well. Oropharynx: Unremarkable. No significant tonsillar enlargement. Hypopharynx: Unremarkable. Larynx: Unremarkable. Normal epiglottis. Trachea: Unremarkable. Retropharyngeal space: Unremarkable. Submandibular/parotid glands: Unremarkable. Glands are normal in size. Thyroid: Unremarkable. No enlarged or calcified nodules. Bones/joints: No acute fracture. Multilevel moderately advanced degenerative cervical spondylosis with reversal of normal lordosis. Soft tissues: Unremarkable. Vasculature: No acute findings. Atheromatous calcification of the visualized aortic arch. Lymph nodes: Unremarkable. No lymphadenopathy. Lung apices: Pleural thickening. No consolidation. No pneumothorax. . IMPRESSION: Extensive subcutaneous fascial and deep neck soft tissue emphysema demonstrated affecting more severely the right facial and mandibular soft tissues with edema/swelling. A small pneumoperitoneum is evident. Multilevel moderately advanced degenerative cervical spondylosis. Reversal of normal cervical lordosis. . Electronically signed by: Rosanna Gutiérrez MD, DABR 05/23/24 02:45 AM Chest X-Ray 05/23/24 00:48 XR chest 1V portable HISTORY: 74 years-old Male abnl CT acute shortness of breath COMPARISON: CT soft tissue neck 05/23/2024 TECHNIQUE: AP view of the chest FINDINGS: Small amount of upper pneumomediastinum with subcutaneous emphysema of the neck. Mild cardiomegaly. No pneumothorax, pleural effusion, airspace consolidation or pulmonary edema. There is minimal subsegmental bibasilar atelectasis. Healed chronic mid left clavicular fracture deformity. Bones appear grossly intact. IMPRESSION: 1. Cardiomegaly without pulmonary edema. 2. No pneumothorax. 3. Small amount of upper mediastinal pneumomediastinum with subcutaneous emphysema of the neck. Please refer to the same day CT chest and soft tissue neck studies for additional findings. ACT 112: Negative or not required by law. The above report was generated using voice recognition software. It may contain grammatical, syntax or spelling errors. Electronically signed by: Jovanny Nolan M.D. 05/23/2024 8:[address] 05/23/24 01:08 Exam(s): CT CHEST Without Contrast EXAM: CT Chest Without Intravenous Contrast CLINICAL HISTORY: Reason for exam: air on face CT from dental procedure. TECHNIQUE: Axial computed tomography images of the chest without intravenous contrast. CTDI is 27.65 mGy and DLP is 1072.72 mGy-cm. Automated exposure control was utilized for the study. A dose lowering technique was utilized adhering to the principles of ALARA. COMPARISON: X-ray chest: 05/23/2024 FINDINGS: Diagnostic sensitivity is reduced by motion artifact. Lungs: Central airways are patent. Bilateral mild bronchial wall thickening. Right lower lobe posteriorly subpleural/parenchymal linear atelectatic changes. No mass. No consolidation. Pleural space: Bilateral mild pleural thickening. No pneumothorax. No significant effusion. Heart: Mild/moderate cardiomegaly. Calcified mitral valve annulus. No significant pericardial effusion. Significant multivessel coronary artery calcifications. Bones/joints: Diffuse osseous demineralization. Posteriorly a ninth and 10th rib nondisplaced fracture. Multilevel advanced degenerative thoracic disc/endplate spondylosis. Soft tissues: A small pneumomediastinum. Vasculature: Atherosclerotic calcified plaques. A 4.7 cm aneurysmal dilatation of the ascending aorta. Lymph nodes: Unremarkable. No enlarged lymph nodes. Other findings: There is significant subcutaneous/deep fascial soft tissue emphysema of the neck and right side upper chest wall is seen. Hepatic cysts. IMPRESSION: A small pneumomediastinum. Otherwise no acute intrathoracic abnormality noted. Likely subacute right ninth and 10th rib nondisplaced fracture. Significant subcutaneous/deep fascial soft tissue emphysema of the neck and right side upper chest wall seen. Osteopenia. Multilevel advanced degenerative thoracic spondylosis. Additional findings as described above. Electronically signed by: Rosanna Gutiérrez MD, DABR 05/23/24 03:[address] 05/23/24 01:08 Exam(s): CT HEAD Without Contrast EXAM: CT Head Without Intravenous Contrast CLINICAL HISTORY: Reason for exam: abnl face CT, air. TECHNIQUE: Axial computed tomography images of the head/brain without intravenous contrast. CTDI is 34.77 mGy and DLP is 624.41 mGy-cm. Automated exposure control was utilized for the study. A dose lowering technique was utilized adhering to the principles of ALARA. COMPARISON: MRI brain: 05/10/2020 FINDINGS: Motion-induced image degradation limits anatomical details. Brain: There is no acute intracranial hemorrhage, mass-effect or midline shift. No abnormal extra-axial fluid collections seen. Moderate cerebral atrophy with widening of the extra-axial spaces and dilatation. No pneumoencephaly. There are significant periventricular/subcortical areas of decreased attenuation, likely from chronic microvascular disease. Bones/joints: Unremarkable. No acute fracture. Sinuses: Unremarkable as visualized. No acute sinusitis. Mastoid air cells: Unremarkable as visualized. No mastoid effusion. Other findings: Predominantly right facial subcutaneous emphysema. IMPRESSION: No acute intracranial abnormality. Chronic involutional and ischemic changes of the brain. . Electronically signed by: Rosanna Gutiérrez MD, NERISSAR 05/23/24 02:51 AM
--- NOTE | 2024-05-24 13:45 | Oral/Maxillofacial Consult ---
Date of Consultation May 24, 2024 Assessment & Plan (1) Severe sepsis: (2) Pneumomediastinum: (3) History of dental surgery: (4) Subcutaneous air: (5) Wound, open, nasal sinus with complication: History of Present Illness Attending Physician: Yaquelin Velazquez MD History of Present Illness As the result of removing a failed dental implant upper right a sinus opening occurred. This was repaired and upon leaving the dental office the patient had no air communication or swelling. The new implant retained upper bridge was placed. Later that night ( May 22) as per patient`s he needed to blow his nose and soon after developed significant swelling of the right cheek, upper/lower eye lids, lateral neck and upper chest. This resulted from the back pressure with in the sinus that escaped through the sinus opening into the adjacent soft tissue. He came to the ER for evaluation, CT scan and subsequent admission due to the significant facial swelling. When I saw Cl[facility]is the soft tissue air edema was starting to dissolve as his eye and cheek were more normal in appearance. Air was still present in the soft tissues but to a lesser extent. I his chart and noted he was being work up for sepsis. From as Oral Maxillofacial perspective no surgical intervention is needed. The sinus repair is holding up well and no airflow noted. No pain, swelling resolving as expected, his new dental rastafarian is excellent. I called and discussed my findings with Dr Eli his dentist who will be following up on the sinus opening repair and will have Ari follow up with me if needed. He may be discharged on oral antibiotics once medically improved. Allergies Allergy/AdvReac Type Severity Reaction Status Date / Time mold Allergy Mild Congested Verified 09/23/21 15:52 Home Medications Medication Instructions Recorded Confirmed Type loratadine 10 mg tablet 10 mg PO DAILY PRN Allergy Symptoms 09/23/21 05/23/24 History melatonin 10 mg tablet 10 mg PO HS 09/23/21 05/23/24 History multivitamin 1 tab PO QAM 09/23/21 05/23/24 History tamsulosin 0.4 mg capsule 0.4 mg PO HS #30 caps 05/12/22 05/23/24 Rx amlodipine 10 mg tablet 10 mg PO QAM 05/23/24 05/23/24 History azelastine 137 mcg (0.1 %) nasal 1 spray intranasal AMHS 05/23/24 05/23/24 His tory spray escitalopram oxalate 10 mg tablet 10 mg PO QAM 05/23/24 05/23/24 History lisinopril 40 mg tablet 40 mg PO QAM 05/23/24 05/23/24 History metoprolol succinate 100 mg See Rx Instructions .Route .COMPLEX 05/23/24 05/23/24 History tablet,extended release 24 hr omeprazole 40 mg capsule,delayed 40 mg PO QAM 05/23/24 05/23/24 History release rosuvastatin 10 mg tablet 10 mg PO QPM 05/23/24 05/23/24 History Patient History Medical History BPH (benign prostatic hyperplasia) Depression Environmental allergies Essential hypertension GERD (gastroesophageal reflux disease) Prostate CA Restless leg syndrome Surgical History H/O vasectomy History of hernia surgery History of total left knee replacement Hx of tonsillectomy Family History Father , age 62 Heart disease Mother , ~70 y/o Heart disease Stroke Social History Smoking Status: Never smoker Second Hand Exposure: No; Do You Dip or Chew Tobacco: No; Hx Alcohol Use: Yes Alcohol type: beer Hx Substance Use: No Preferred Language: Polish Communication Ability: Effective 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 Beliefs That Will Affect Care: None Current Living Situation: Spouse Current Living Situation Comment: lives with fiance Feels Safe at Home: Yes Assistive Devices: None Results & Data Vital Signs (Past 12 Hours) Vital Signs Temp Pulse Pulse Resp BP Pulse Ox O2 Del Method 05/24/24 11:36 37.2 C 78 20 159/98 H 94 Room Air 05/24/24 07:31 36.4 C L 74 20 162/100 H 97 Room Air 05/24/24 05:15 59 L 05/24/24 02:46 36.9 C 87 18 137/82 95 Room Air PG Care Time/CCT Total # of Minutes Spent Total Time Spent with Patient: Total time spent is greater than 50% in coordination of care (as documented) at patient's floor/unit and/or counseling patient: Coding Level of Care Code 74998 INT INP/OBS CARE MIN Diagnoses Severe sepsis A41.9; R65.20 Pneumomediastinum J98.2 History of dental surgery Z92.89 Subcutaneous air T79.7XXA Encounter type: initial encounter Wound, open, nasal sinus with complication S01.20XA (4) Subcutaneous air Encounter type: initial encounter Qualified Code(s): T79.7XXA - Traumatic subcutaneous emphysema, initial encounter
--- NOTE | 2024-05-24 17:29 | Discharge Summary ---
Discharge Summary Date of Service May 24, 2024 Principal Dx & Hospital Course #1 = Principal Diagnosis (1) Severe sepsis: Plan Pt is a 74yoM with PMHx significant for hypertension, PVD, TIA, hyperlipidemia, prostate cancer radiation Rx/hormonal Rx, BPH, overactive bladder as per records, DM 2 diet-controlled, chronic anemia (baseline hemoglobin of 13) presenting with concern for odontogenic infection after recent procedure. Severe Sepsis SIRS plus lactic acidosis Pneumomediastinum Odontogenic Infection Patient presenting with possible odontogenic infection after recent procedure Chronic leukocytosis with tachycardia Face CT noting "large amount of air in the cervical soft tissues and right face concerning for pneumomediastinum." CT soft tissue neck noting "Extensive subcutaneous fascial and deep neck soft tissue emphysema demonstrated affecting more severely the right facial and mandibular soft tissues with edema/swelling. A small pneumoperitoneum is evident." CT chest noting "A small pneumomediastinum. Otherwise no acute intrathoracic abnormality noted. Likely subacute right ninth and 10th rib nondisplaced fracture. Significant subcutaneous/deep fascial soft tissue emphysema of the neck and right side upper chest wall seen." Small pneumomediastinum as per chest CT report possibly from deep neck space spread of odontogenic infection, patient without chest pain or SOB symptoms Right-sided rib fractures from fall from horse last year as per patient account lactate elevated at 4.6 and downtrending after fluid resuscitation Blood Cx x2 sets No growth to date Oral maxillofacial surgeon consulted, appreciate recs. FS surgeon Dr Guicho Zazueta noted the following: "As the result of removing a failed dental implant upper right a sinus opening occurred. This was repaired and upon leaving the dental office the patient had no air communication or swelling. The new implant retained upper bridge was placed. Later that night ( May 22) as per patient`s he needed to blow his nose and soon after developed significant swelling of the right cheek, upper/lower eye lids, lateral neck and upper chest. This resulted from the back pressure with in the sinus that escaped through the sinus opening into the adjacent soft tissue. He came to the ER for evaluation, CT scan and subsequent admission due to the significant facial swelling. When I saw Clovis the soft tissue air edema was starting to dissolve as his eye and cheek were more normal in appearance. Air was still present in the soft tissues but to a lesser extent. I his chart and noted he was being work up for sepsis. From as Oral Maxillofacial perspective no surgical intervention is needed. The sinus repair is holding up well and no airflow noted. No pain, swelling resolving as expected, his new dental yazidism is excellent. I called and discussed my findings with Dr Eli his dentist who will be following up on the sinus opening repair and will have Ari follow up with me if needed. He may be discharged on oral antibiotics once medically improved." Infectious disease was also consulted, and case was discussed with Dr Avilez from [facility] on the day of discharge. Advised that since there was noted clinical improvement with the IV Zosyn without MRSA coverage in the hospital, recommended discharge home with po Augmentin 875mg TID or Augmentin XR BID noting the increased cost of the XR. Pt was discharged home with Augmentin 875mg TID given improvement in symptoms in the hospital without additional MRSA coverage. He will have close followup after discharge with his PCP's office as well as his Dentist and OMFS surgeon who saw him in the hospital. Patient was anxious for discharge throughout his stay. Patient was discharged in stable condition. Chronic leukocytosis Pt with leukocytosis dating back to 2021 PCP followup to ensure resolution/further workup. Hypertension Adjusted metoprolol succinate dose to 25mg BID Also on lisinopril 40mg PCP followup for continued monitoring DMII Basal bolus insulin while hospitalized Resume home regimen on discharge Notes For Next Care Provider Please ensure patient's stability and continued improvement of symptoms on Augmentin 875 TID per ID recs Please ensure follow-up with patient's dentist and oral maxillofacial surgeon please continue to monitor blood pressure and adjust medications as needed Medication Changes From Visit Metoprolol succinate dose changed to 25 Mg BID Augmentin 875 Mg TID with Lactobacillus Probiotic Admission HPI Per Admitting Provider History obtained from patient and records. Medical history significant for hypertension, PVD, TIA, hyperlipidemia, prostate cancer radiation Rx/hormonal Rx, BPH, overactive bladder as per records, DM 2 diet-controlled, chronic anemia (baseline hemoglobin of 13). Last confinement May 2022 for sepsis secondary to postop penile prosthetic infection/abscess. Patient had dental implant procedure on the right upper jaw yesterday at [place] [facility]'s office. Procedure took a little longer than expected as per patient. Patient woke up last night with blurred vision on the right. No immediate pain or headache symptoms. Patient shocked by right facial swelling upon looking at the mirror. Progressive right sided pain and swelling overnight. Patient denies chest pain, SOB. Unasyn and Decadron administered at the ER. Highest SBP of 170s documented at the ER. 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 Skin: right sided facial swelling and erythema Psych: Anxious mood and affect HEENT: right sided facial swelling and erythema CV: RRR Resp: Breath sounds clear bilaterally, no increased effort of breathing Abdomen: Soft, nontender Extremities: No edema in lower extremities bilaterally. Updated Medication List Medication Instructions Recorded Confirmed Type loratadine 10 mg tablet 10 mg PO DAILY PRN Allergy Symptoms 09/23/21 05/23/24 History melatonin 10 mg tablet 10 mg PO HS 09/23/21 05/23/24 History multivitamin 1 tab PO QAM 09/23/21 05/23/24 History tamsulosin 0.4 mg capsule 0.4 mg PO HS #30 caps 05/12/22 05/23/24 Rx amlodipine 10 mg tablet 10 mg PO QAM 05/23/24 05/23/24 History azelastine 137 mcg (0.1 %) nasal 1 spray intranasal AMHS 05/23/24 05/23/24 History spray escitalopram oxalate 10 mg tablet 10 mg PO QAM 05/23/24 05/23/24 History lisinopril 40 mg tablet 40 mg PO QAM 05/23/24 05/23/24 History omeprazole 40 mg capsule,delayed 40 mg PO QAM 05/23/24 05/23/24 History release rosuvastatin 10 mg tablet 10 mg PO QPM 05/23/24 05/23/24 History Lactobacillus acidophilus 100 mg PO BID #60 caps 05/24/24 Rx amoxicillin 875 mg-potassium 1 tab PO Q8H #30 tabs 05/24/24 Rx clavulanate 125 mg tablet metoprolol succinate 25 mg 25 mg PO BID #60 tabs 05/24/24 Rx tablet,extended release 24 hr Hospital Stay Data Consultations 05/23/24 03:17 ED Decision to Admit Stat 05/23/24 04:32 Consult Oromaxillofacial Surgery Routine 05/24/24 10:21 Consult Infectious Diseases Routine Diagnostic Imagining Performed 05/22/24 22:34 CT facial bones w con Stat 05/23/24 00:46 CT soft tissue neck wo con Stat 05/23/24 01:08 CT chest diagnostic wo con Stat CT head/brain wo con Stat Face CT 05/22/24 22:34 CR Exam(s): CT FACIAL With Contrast IV Amt: 90 ml opti 320 EXAM: CT Head and Maxillofacial With Intravenous Contrast CLINICAL HISTORY: Reason for exam: right facial swelling, dental procedure today. TECHNIQUE: Axial computed tomography images of the head/brain and face with intravenous contrast. CTDI is 36.26 mGy and DLP is 719.01 mGy-cm. Automated exposure control was utilized for the study. A dose lowering technique was utilized adhering to the principles of ALARA. CONTRAST: Patient received 90 ml opti 320 of IV contrast COMPARISON: No relevant prior studies available. FINDINGS: Brain: Unremarkable. No hemorrhage. No edema. Normal enhancement. Ventricles: Unremarkable. No ventriculomegaly. Bones/joints: No acute fracture. Soft tissues: Extensive air in the deep cervical soft tissues and face with enlargement of the subcutaneous tissues over the right face and scalp. Sinuses: Chronic right maxillary and ethmoid sinusitis. Right maxillary and ethmoid sinusitis. No acute sinusitis. Mastoid air cells: Unremarkable as visualized. No mastoid effusion. Orbits: Unremarkable as visualized. IMPRESSION: There is a large amount of air in the cervical soft tissues and right face concerning for pneumomediastinum. Recommend CT scan of the chest for further evaluation. Communications: Call Doctor Pneumomediastinum Electronically signed by: Lynn Baker MD 05/23/24 00:[address] AM Soft Tissue Neck CT 05/23/24 00:46 Exam(s): CT NECK Without Contrast EXAM: CT Neck Without Intravenous Contrast CLINICAL HISTORY: Reason for exam: dental procedure, abnl face CT, ? air. TECHNIQUE: Axial computed tomography images of the neck without intravenous contrast. CTDI is 19.98 mGy and DLP is 660.96 mGy-cm. Automated exposure control was utilized for the study. A dose lowering technique was utilized adhering to the principles of ALARA. COMPARISON: Maxillofacial CT: 05/22/2024 FINDINGS: Lack of IV contrast limits evaluation of soft tissues/vascular structures. Image quality is also degraded by motion artifact. Extensive subcutaneous facial and deep neck soft tissue emphysema demonstrated bilaterally, affecting more severely the right facial and mandibular soft tissues. There is a small pneumomediastinum present as well. Oropharynx: Unremarkable. No significant tonsillar enlargement. Hypopharynx: Unremarkable. Larynx: Unremarkable. Normal epiglottis. Trachea: Unremarkable. Retropharyngeal space: Unremarkable. Submandibular/parotid glands: Unremarkable. Glands are normal in size. Thyroid: Unremarkable. No enlarged or calcified nodules. Bones/joints: No acute fracture. Multilevel moderately advanced degenerative cervical spondylosis with reversal of normal lordosis. Soft tissues: Unremarkable. Vasculature: No acute findings. Atheromatous calcification of the visualized aortic arch. Lymph nodes: Unremarkable. No lymphadenopathy. Lung apices: Pleural thickening. No consolidation. No pneumothorax. . IMPRESSION: Extensive subcutaneous fascial and deep neck soft tissue emphysema demonstrated affecting more severely the right facial and mandibular soft tissues with edema/swelling. A small pneumoperitoneum is evident. Multilevel moderately advanced degenerative cervical spondylosis. Reversal of normal cervical lordosis. . Electronically signed by: Rosanna Gutiérrez MD, DABR 05/23/24 02:45 AM Chest X-Ray 05/23/24 00:48 XR chest 1V portable HISTORY: 74 years-old Male abnl CT acute shortness of breath COMPARISON: CT soft tissue neck 05/23/2024 TECHNIQUE: AP view of the chest FINDINGS: Small amount of upper pneumomediastinum with subcutaneous emphysema of the neck. Mild cardiomegaly. No pneumothorax, pleural effusion, airspace consolidation or pulmonary edema. There is minimal subsegmental bibasilar atelectasis. Healed chronic mid left clavicular fracture deformity. Bones appear grossly intact. IMPRESSION: 1. Cardiomegaly without pulmonary edema. 2. No pneumothorax. 3. Small amount of upper mediastinal pneumomediastinum with subcutaneous emphysema of the neck. Please refer to the same day CT chest and soft tissue neck studies for additional findings. ACT 112: Negative or not required by law. The above report was generated using voice recognition software. It may contain grammatical, syntax or spelling errors. Electronically signed by: Jovanny Nolan M.D. 05/23/2024 8:[address] 05/23/24 01:08 Exam(s): CT CHEST Without Contrast EXAM: CT Chest Without Intravenous Contrast CLINICAL HISTORY: Reason for exam: air on face CT from dental procedure. TECHNIQUE: Axial computed tomography images of the chest without intravenous contrast. CTDI is 27.65 mGy and DLP is 1072.72 mGy-cm. Automated exposure control was utilized for the study. A dose lowering technique was utilized adhering to the principles of ALARA. COMPARISON: X-ray chest: 05/23/2024 FINDINGS: Diagnostic sensitivity is reduced by motion artifact. Lungs: Central airways are patent. Bilateral mild bronchial wall thickening. Right lower lobe posteriorly subpleural/parenchymal linear atelectatic changes. No mass. No consolidation. Pleural space: Bilateral mild pleural thickening. No pneumothorax. No significant effusion. Heart: Mild/moderate cardiomegaly. Calcified mitral valve annulus. No significant pericardial effusion. Significant multivessel coronary artery calcifications. Bones/joints: Diffuse osseous demineralization. Posteriorly a ninth and 10th rib nondisplaced fracture. Multilevel advanced degenerative thoracic disc/endplate spondylosis. Soft tissues: A small pneumomediastinum. Vasculature: Atherosclerotic calcified plaques. A 4.7 cm aneurysmal dilatation of the ascending aorta. Lymph nodes: Unremarkable. No enlarged lymph nodes. Other findings: There is significant subcutaneous/deep fascial soft tissue emphysema of the neck and right side upper chest wall is seen. Hepatic cysts. IMPRESSION: A small pneumomediastinum. Otherwise no acute intrathoracic abnormality noted. Likely subacute right ninth and 10th rib nondisplaced fracture. Significant subcutaneous/deep fascial soft tissue emphysema of the neck and right side upper chest wall seen. Osteopenia. Multilevel advanced degenerative thoracic spondylosis. Additional findings as described above. Electronically signed by: Rosanna Gutiérrez MD, ENRISSAR 05/23/24 03:[address] 05/23/24 01:08 Exam(s): CT HEAD Without Contrast EXAM: CT Head Without Intravenous Contrast CLINICAL HISTORY: Reason for exam: abnl face CT, air. TECHNIQUE: Axial computed tomography images of the head/brain without intravenous contrast. CTDI is 34.77 mGy and DLP is 624.41 mGy-cm. Automated exposure control was utilized for the study. A dose lowering technique was utilized adhering to the principles of ALARA. COMPARISON: MRI brain: 05/10/2020 FINDINGS: Motion-induced image degradation limits anatomical details. Brain: There is no acute intracranial hemorrhage, mass-effect or midline shift. No abnormal extra-axial fluid collections seen. Moderate cerebral atrophy with widening of the extra-axial spaces and dilatation. No pneumoencephaly. There are significant periventricular/subcortical areas of decreased attenuation, likely from chronic microvascular disease. Bones/joints: Unremarkable. No acute fracture. Sinuses: Unremarkable as visualized. No acute sinusitis. Mastoid air cells: Unremarkable as visualized. No mastoid effusion. Other findings: Predominantly right facial subcutaneous emphysema. IMPRESSION: No acute intracranial abnormality. Chronic involutional and ischemic changes of the brain. . Electronically signed by: Rosanna Gutiérrez MD, DABR 05/23/24 02:51 AM Pending Results Patient Have Any Pending Studies at Discharge: No Discharge Instructions Given to Patient (Per Discharging Provider) Juan Jose, You were seen and evaluated for severe infection after a recent dental procedure. You were seen by the oral maxillofacial surgeon who does not recommend surgery at this time. We treated your infection with IV antibiotics and your case was discussed with an infectious disease specialist. They recommended discharge home with the medication Augmentin to be taken THREE TIMES A DAY. We Are Also Discharging You Home with Probiotic to Help with Any Gastrointestinal Side Effects Such As Diarrhea. Should You Develop Any Nausea Vomiting or Diarrhea Can Consider Taking the Antibiotic Twice a Day Instead of 3 Times A Day. We Also Adjusted Your Metoprolol Dose While You Are Here. Please Take 25 Mg in the Morning and 25 Mg in the Evening. Please keep close follow up with your primary care provider after discharge. Please do not hesitate to come back to the emergency room if your symptoms worsen or return. It was a pleasure taking care of you while you were here. Total Time Total Time Spent Total Time Spent (In Minutes): 65
[2024-05-24] MEDS ORDERED: HEPARIN SOD 5,000 UNIT/0.5 ML VIAL SQ SCH (21:00)
== END 2024-05-24 18:16 | disposition home or self-care (01) | DRG 872 ==
LOC: ED 21:46 → EDINP 05-23 03:57 → 2E 05-23 07:58
DX: D63.8 Anemia in other chronic diseases classified elsewhere; Z79.899 Other long term (current) drug therapy; J98.2 Interstitial emphysema; R65.20 Severe sepsis without septic shock; I10 Essential (primary) hypertension; E11.51 Type 2 diabetes mellitus with diabetic peripheral angiopathy without gangrene; E78.5 Hyperlipidemia, unspecified; Z92.3 Personal history of irradiation; E87.20 Acidosis, unspecified; A41.9 Sepsis, unspecified organism; Z85.46 Personal history of malignant neoplasm of prostate; Z86.73 Personal history of transient ischemic attack (TIA), and cerebral infarction without residual deficits; N32.81 Overactive bladder; M27.2 Inflammatory conditions of jaws

== ENCOUNTER 2024-08-26 07:22 | Inpatient (IN) ==
--- OUTSIDE RECORDS SUMMARY | 2024-08-26 07:34 | External Medical Summary | Summary of Care ---
Author Name Unknown Organization [facility] Address [address] [place] [address] Phone [phone] Care Team Providers Care Cashier Gambling Name Role Phone Osito Alfaro MD Primary Care Provider [phone] Reason for Visit * Reason Onset Date Comments Cardiology Study 08/09/2024 Encounter Details Date Type Department Care Team (Late st Contact Info) Description 08/09/2024 Telephone [facility] Osmin [address] [address] Osito Alfaro MD [address] [id number] Cardiology Study Allergies Active Allergy Reactions Criticality Noted Date Comments Cat Dander 09/01/2016 Warfarin Hives 09/01/2016 Dust Cough 03/16/2009 Mold Cough 03/16/2009 Other Allergy (See Comments) 04/04/2022 Grass - sneezing/sinus Pollen Cough 03/16/2009 Also grass documented as of this encounter (statuses as of 08/09/2024) Medications LORATADINE 10 MG PO CAPS Take by mouth at bedtime. Active CENTRUM SILVER PO TABS daily Active Melatonin 10 MG Oral Tablet Take 1 Tablet by mouth at bedtime. 2 Active metFORMIN HCl ER 500 MG Oral Tablet Extended Release 24 Hour (Glucophage XR)Indications: DM type 2, goal HbA1c < 7.5% (HCC) Take 2 tabs with breakfast daily. First 2 weeks- take 1 tab daily 180 Tablet 3 3 Active Rosuvastatin Calcium 10 MG Oral Tablet (Crestor)Indica tions:Dyslipide kevin, goal LDL below 70 TAKE 1 TABLET BY MOUTH ONCE DAILY IN THE EVENING 90 Tablet 3 4 Active Additional Information Patient taking differently: [id number], Reported on 08/05/2024 citalopram 5 MG OR TABS Take by mouth at bedtime. Active Potassium Gluconate 595 (99 K) MG Oral Tablet Take by mouth at bedtime. Active Omeprazole 40 MG Oral Capsule Delayed Release (PriLOSEC) Take 1 Capsule by mouth in the morning. 90 Capsule 1 4 Active Escitalopram Oxalate 10 MG Oral Tablet (Lexapro)Indica tions:Generaliz ed anxiety disorder Take 1 Tablet by mouth in the morning. 90 Tablet 2 4 Active Azelastine HCl 0.1 % Nasal Solution (Astelin)Indica tions:Chronic rhinitis Administer 1 [place] into nostril in the morning and 1 [place] before bedtime. 90 mL 3 4 Active Lisinopril 40 MG Oral TabletIndicatio ns:HTN, goal below 140/90 Take 1 Tablet by mouth in the morning. 90 Tablet 3 4 Active Metoprolol Succinate ER 100 MG Oral Tablet Extended Release 24 Hour (Toprol XL) Take 1 Tablet by mouth in the morning. 34 Tablet 6 4 Active Metoprolol Succinate ER 50 MG Oral Tablet Extended Release 24 Hour (Toprol XL) Take 1 Tablet by mouth at bedtime. 34 Tablet 6 4 Active Apixaban 5 MG Oral Tablet (Eliquis) Take 1 Tablet by mouth in the morning and 1 Tablet before bedtime. 60 Tablet 6 4 Active Montelukast Sodium 10 MG Oral Tablet (Singulair)Scarlett cations:Post-na souleymane drip Take 1 Tablet by mouth in the morning. 30 Tablet 11 4 Active Albuterol Sulfate HFA 108 (90 Base) MCG/ACT Inhalation Aerosol SolutionIndicat ions:Viral URI with cough,Wheezing, SOB (shortness of breath) Inhale 2 Puffs by mouth every 4 hours as needed for Dyspnea or Wheezing. 18 g 4 Active documented as of this encounter (statuses as of 08/09/2024) Active Problems Problem Noted Date Diagnosed Date Aneurysm of aorta 04/30/2024 History of prostate cancer 04/17/2024 Overview (04/17/2024): 05/23/23 Urology note "He has a history [...] as of this encounter (statuses as of 08/09/2024) Resolved Problems Problem Noted Date Diagnosed Date Resolved Date Aneurysm of aorta 04/30/2024 04/30/2024 Prediabetes 01/16/2023 02/28/2024 Overview: Per Prediabetes protocol Prostate carcinoma 06/03/2020 Cancer Staging:Clinical stage from 06/03/2020:Stage IIC(cT1c, cN0, cM0, PSA: 4.6, Grade Group: 3) - Signed by Reynold Antoine MD on 06/03/2020 Overview (04/17/2024): 05/23/23 Urology note He has a history of prostate cancer post ERBT 08/2020 with hormone therapy. 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 Answer Date of Assessment Author No 03/17/2022 11:42 AM Magda Mendoza RN * Are you blind or do you have serious difficulty seeing, even when wearing glasses? Answer Date of Assessment Author No 03/17/2022 11:42 AM Magda Mendoza RN * Do you have serious difficulty walking or climbing stairs? (5 years old or older) Answer Date of Assessment Author No 03/17/2022 11:42 AM Magda Mendoza RN * Do you have difficulty dressing or bathing? (5 years old or older) Answer Date of Assessment Author No 03/17/2022 11:42 AM Magda Mendoza RN * Because of a physical, mental, or emotional condition, do you have difficulty doing errands alone such as visiting a doctors office or shopping? (15 years old or older) Answer Date of Assessment Author No 03/17/2022 11:42 AM Magda Mendoza RN documented as of this encounter Mental Status * Because of a physical, mental, or emotional condition, do you have serious difficulty concentrating, remembering, or making decisions? (5 years old or older) Answer Entry Date Author No 03/17/2022 11:42 AM EDT Magda Scott RN documented in this encounter Miscellaneous Notes * Telephone Encounter - Roxana Gómez LPN - 08/09/2024 3:22 PM EST Notified crystal at [facility] that pt is back in normal sinus rhythm. * Telephone Encounter - Anton Malone MD - 08/09/2024 3:18 PM EST EKG demonstrates patient to be back in sinus rhythm. Currently no indications for cardioversion Thanks * Telephone Encounter - Danielle Olivera LPN - 08/09/2024 2:43 PM EST Patient stopped in our office today for an EKG per Dr. Ennis. Please advise, I had Dr. Osito Alfaro review it before having patient leave the office. documented in this encounter Plan of Treatment Upcoming Encounters Date Type Department Care Team (Late st Contact Info) Description 09/02/2024 12:00 PM EST Office Visit General Internal Medicine [facility] [place] [address] [facility] [place] [address] Wesley Leary DO [address] [place] [address] 11/04/2024 10:20 AM EDT Office Visit [facility] [place] [address] [address] Osito Alfaro MD [address] [address] 11/11/2024 9:00 AM EDT Nurse Only Ancillary Department, [address] [phone] Osmin, Nurse Annual Wellness [address] [address] 05/21/2025 10:00 AM EDT Imaging Radiology [facility] [address] [place] [address] 05/28/2025 11:00 AM EDT Office Visit Urology Bette Guardado [address] [address] Cindy Reynoso, Osmany Perez MD [address] [place] [phone] Scheduled Procedures Name Priority Associated Diagnoses Date/Ti me ESOPHAGOGASTRODUODENOSCOPY ( EGD), FLEXIBLE, TRANSORAL, DIAGNOSTIC Recall Gastritis COLONOSCOPY FLEXIBLE PROXIMAL DIAGNOSTIC Recall History of colonic polyps Health Maintenance Due Date Last Done Comments Diabetic Eye Exam 1968 Diabetic Foot Exam 1968 COVID-19 Vaccine ( season) 2024 08/18/2021, 12/27/2020, 12/05/2020 CKD PHOS USE SMARTSET 12356 10/24/2024 10/25/2023 Adult Wellness Visit 11/06/2024 11/07/2023, 11/01/19 Depression Monitoring 11/06/2024 11/07/2023 HbA1c 12/03/2024 06/04/2024, 10/0 03/2024, 10/25/2023, Additional history exists GFR 12/31/2024 07/03/2024, 05/08, 05/14/2024, Additional history exists Hepatitis C Screening 04/30/2025 Postpo katiana from 1966 (Patient Declined After Education) Zoster Vaccines (2 of 2) 04/30/2025 10/25/2023 Pos tponed from 12/20/2023 (Patient Declined After Education) Albumin/Creatinine Ratio 05/14/2025 024, 06/13/2023, 12/21/2022 CKD HGB USE SMARTSET 43977 07/03/202507/03, 07/03/2024, 06/04/2024, Additional history exists DTap/Tdap Vaccines (3 - Td or Tdap) 10/18/2028 10/18/2018, 03/24/2009 Colonoscopy 03/29/2029 03/29/2024, 03/08, 08/17/2022, Additional history exists Pneumococcal Vaccine: 50+ Years Completed 09/20/2022, 10/18/2018 RETIRED - COLONOSCOPY-EVERY [...] this encounter Medical Devices Implanted Type Area Casting Tester Device Identifier Shelf Expiration Date Model / Serial / Lot Kit Accessory Ams 700 [id number] - [id number] Implanted:Qty : 1 on 03/17/2022 by Trevor Khanna MD at [place] [facility] [place]A: Scrotum Somo [id number] 01/19/2027 [id number] / / [id number] Rte, Snapcone, Cx.Lgx 0.5cm - [id number] Implanted:Qty : 1 on 03/17/2022 by Trevor Khanna MD at [place] [facility] [place] N/A: Penis [employer]ptive [employer] : UROLOGY [id number] 10/20/2026 [id number] / / [id number] Cx Precon Ms 21cm Ps 12cm - [id number] Implanted:Qty : 1 on 03/17/2022 by Trevor Khanna MD at [place] [facility] [place] N/A: Penis Somo [id number] 08/26/2023 [id number] / / [id number] Resvr Conceal [id number] - [id number] Implanted:Qty : 1 on 03/17/2022 by Trevor Khanna MD at [place] [facility] [place] N/A: Pelvis Somo [id number] 11/17/2023 [id number] / / [id number] documented as of this encounter Additional Health Concerns Infection Onset Date Last Indicated Resolved Time SARS-CoV-2 (COVID-19) 08/05/2024 08/05/2024 documented as of this encounter Advance Directives * Full Code (Latest Code Status on File) Date Activated Date Inactivated Comments 03/17/2022 10:18 AM 03/18/2022 2:38 PM Question Answer Comments Discussion of Advance Directives occurred with: Not Discussed Care Teams Cashier Gambling Relationship Specialty Start Date End Date Osito Alfaro MD PCP - General Family Medicine 09/01/21 documented as of this encounter
--- OUTSIDE RECORDS SUMMARY | 2024-08-26 07:34 | External Medical Summary | Summary of Care ---
Author Name Unknown Organization [facility] Address [address] [place] [address] Phone [phone] Care Team Providers Care Food Selector Name Role Phone Osito Alfaro MD Primary Care Provider [phone] Reason for Visit * Reason Onset Date Comments Cardiology Study 08/09/2024 Encounter Details Date Type Department Care Team (Late st Contact Info) Description 08/09/2024 Telephone [facility] Os[address] [phone] Osito Alfaro MD [address] [phone] Cardiology Study Allergies Active Allergy Reactions Criticality [...] 4 Active Additional Information Patient taking differently: [id number], Reported on 08/05/2024 citalopram 5 MG OR [...] Nasal Solution (Astelin)Indica tions:Chronic rhinitis Administer 1 [place] into nostril in the morning and 1 [place] before bedtime. 90 mL 3 4 Active [...] mRNA, LNP-s, No Pre serve, 2-Dose Series ([employer]) 08/18/2021 Pneumococcal Conjugate Vacc, 13 Valent (Prevnar) [...] Entry Date Author No 03/17/2022 11:42 AM REYNALDOT Magda Scott RN documented in this encounter Miscellaneous Notes * Telephone Encounter - Chayo Caldera LPN - 08/09/2024 3:36 PM EST Called pt and spoke with , pt was unavailable. will relay message, [employer] also sent. * Telephone Encounter - Roxana Gómez LPN - 08/09/2024 3:22 PM EST Notified crystal at [facility] that pt is back in normal sinus [...] PM EST Office Visit General Internal Medicine [address] [place] [address] [place] [address] Wesley Leary DO [address] [place] [address] 11/04/2024 10:20 AM EDT Office Visit Family Practice, Osmin Ken [address] [place] [address] Osito Alfaro MD [address] [place] [address] 11/11/2024 9:00 AM EDT Nurse Only Ancillary Department, Osmin [address] [place] [address] Osmin, Nurse Annual Wellness [address] [place] [address] 05/21/2025 10:00 AM EDT Imaging Radiology [facility] [address] [facility] [place] [address] 05/28/2025 11:00 AM EDT Office Visit Urology Bette Guardado [address] [address] Osmany White Jr., MD [address] [phone] Scheduled Procedures Name Priority Associated Diagnoses Date/Ti me ESOPHAGOGASTRODUODENOSCOPY ( EGD), FLEXIBLE, TRANSORAL, DIAGNOSTIC Recall Gastritis COLONOSCOPY FLEXIBLE PROXIMAL DIAGNOSTIC Recall History of colonic polyps Health Maintenance Due Date Last Done Comments Diabetic Eye Exam 1966 Diabetic Foot Exam 1966 COVID-19 Vaccine ( season) 2024 08/18/2021, 12/27/2020, 12/05/2020 CKD PHOS USE SMARTSET 53360 10/24/2024 10/25/2023 Adult Wellness Visit 11/06/2024 11/07/2023, 11/01/19 23 Depression Monitoring 11/06/2024 11/07/2023 HbA1c 12/03/2024 06/04/2024, 10/0 03/2024, 10/25/2023, Additional history exists GFR 12/31/2024 07/03/2024, 05/08, 05/14/2024, Additional history exists Hepatitis C Screening 04/30/2025 Postpo katiana from 1966 (Patient Declined After Education) Zoster Vaccines (2 of 2) 04/30/2025 10/25/2023 Pos tponed from 12/20/2023 (Patient Declined After Education) Albumin/Creatinine Ratio 05/14/2025 024, 06/13/2023, 12/21/2022 CKD HGB USE SMARTSET 37913 07/03/202507/03, 07/03/2024, 06/04/2024, Additional history exists DTap/Tdap [...] this encounter Medical Devices Implanted Type Area Regulatory Leader Device Identifier Shelf Expiration Date Model / Serial / Lot Kit Accessory Ams 700 [id number] - [id number] Implanted:Qty : 1 on 03/17/2022 by Trevor Khanna MD at OR [facility] [place] N/A: Scrotum Zendrive [id number] 01/19/2027 [id number] / / [id number] Rte, Snapcone, Cx.Lgx 0.5cm - [id number] Implanted:Qty : 1 on 03/17/2022 by Trevor Khanna MD at OR [facility] [place] N/A: Penis [employer] : UROLOGY [id number] 10/20/2026 [id number] / / [id number] Cx Precon Ms 21cm Ps 12cm - [id number] Implanted:Qty : 1 on 03/17/2022 by Trevor Khanna MD at OR [facility] [place] N/A: Penis [employer] [id number] 08/26/2023 [id number] / / [id number] Resvr Conceal [id number] - [id number] Implanted:Qty : 1 on 03/17/2022 by Trevor Khanna MD at OR [facility] [place] N/A: Pelvis Zendrive [id number] 11/17/2023 [id number] / / [id number] documented as of this encounter Additional Health Concerns Infection Onset Date Last Indicated Resolved Time SARS-CoV-2 (COVID-19) 08/05/2024 08/05/2024 documented as of this encounter Advance Directives * Full Code (Latest Code Status on File) Date Activated Date Inactivated Comments 03/17/2022 10:18 AM 03/18/2022 2:38 PM Question Answer Comments Discussion of Advance Directives occurred with: Not Discussed Care Teams Food Selector Relationship Specialty Start Date End Date Osito Alfaro MD PCP - General Family Medicine 09/01/21 documented as of this encounter
--- OUTSIDE RECORDS SUMMARY | 2024-08-26 07:34 | External Medical Summary | Summary of Care ---
Author Name Unknown Organization [facility] Address [address] [place] [address] Phone [phone] Care Team Providers Care Plate Finisher Name Role Phone Osito Alfaro MD Primary Care Provider [phone] Reason for Visit * Reason Onset Date Comments Cardiology Study 08/09/2024 Encounter Details Date Type Department Care Team (Late st Contact Info) Description 08/09/2024 Telephone [facility] [address] [address] Osito Alfaro MD [address] [phone] Cardiology Study Allergies Active Allergy Reactions Criticality [...] 4 Active Additional Information Patient taking differently: [id number], Reported on 08/05/2024 citalopram 5 MG OR [...] Nasal Solution (Astelin)Indica tions:Chronic rhinitis Administer 1 [place] into nostril in the morning and 1 [place] before bedtime. 90 mL 3 4 Active [...] mRNA, LNP-s, No Pre serve, 2-Dose Series (Jenn Rykert) 08/18/2021 Pneumococcal Conjugate Vacc, 13 Valent (Prevnar) [...] 08/09/2024 3:22 PM EST Notified crystal at [facility] that pt is back in normal sinus [...] PM EST Office Visit General Internal Medicine [facility] [place] [address] [facility] [place] [address] Wesley Leary DO [address] [place] [address] 11/04/2024 10:20 AM EDT Office Visit [facility] [place] [address] [address] Osito Alfaro MD [address] [address] 11/11/2024 9:00 AM EDT Nurse Only Ancillary Department, Osmin [address] [address] Osmin, Nurse Annual Wellness [address] [address] 05/21/2025 10:00 AM EDT Imaging Radiology [facility] [address] [place] [address] 05/28/2025 11:00 AM EDT Office Visit Urology Bette Guardado [address] [address] Cindy Reynoso, Osmany Perez MD [address] [place] [phone] Scheduled Procedures Name Priority Associated Diagnoses Date/Ti me ESOPHAGOGASTRODUODENOSCOPY ( EGD), FLEXIBLE, TRANSORAL, DIAGNOSTIC Recall Gastritis COLONOSCOPY FLEXIBLE PROXIMAL DIAGNOSTIC Recall History of colonic polyps Health Maintenance Due Date Last Done Comments Diabetic Eye Exam 1968 Diabetic Foot Exam 1966 COVID-19 Vaccine ( season) 2024 08/18/2021, 12/27/2020, 12/05/2020 CKD PHOS USE SMARTSET 85511 10/24/2024 10/25/2023 Adult Wellness Visit 11/06/2024 11/07/2023, [...] 024, 06/13/2023, 12/21/2022 CKD HGB USE SMARTSET 43458 07/03/202507/03, 07/03/2024, 06/04/2024, Additional history exists DTap/Tdap [...] this encounter Medical Devices Implanted Type Area Physician Underwriter Device Identifier Shelf Expiration Date Model / Serial / Lot Kit Accessory Ams 700 [id number] - [id number] Implanted:Qty : 1 on 03/17/2022 by Trevor Khanna MD at [place] [facility] [place] N/A: Scrotum Copanion [id number] 01/19/2027 [id number] / / [id number] Rte, Snapcone, Cx.Lgx 0.5cm - [id number] Implanted:Qty : 1 on 03/17/2022 by Trevor Khanna MD at [place] [facility] [place] N/A: Penis [employer] : UROLOGY [id number] 10/20/2026 [id number] / / [id number] Cx Precon Ms 21cm Ps 12cm - [id number] Implanted:Qty : 1 on 03/17/2022 by Trevor Khanna MD at [place] [facility] [place] N/A: Penis Copanion [id number] 08/26/2023 [id number] / / [id number] Resvr Conceal [id number] - [id number] Implanted:Qty : 1 on 03/17/2022 by Trevor Khanna MD at [place] [facility] [place] N/A: Pelvis Copanion [id number] 11/17/2023 [id number] / / [id number] documented as of this encounter Additional Health Concerns Infection Onset Date Last Indicated Resolved Time SARS-CoV-2 (COVID-19) 08/05/2024 08/05/2024 documented as of this encounter Advance Directives * Full Code (Latest Code Status on File) Date Activated Date Inactivated Comments 03/17/2022 10:18 AM 03/18/2022 2:38 PM Question Answer Comments Discussion of Advance Directives occurred with: Not Discussed Care Teams Plate Finisher Relationship Specialty Start Date End Date Osito Alfaro MD PCP - General Family Medicine 09/01/21 documented as of this encounter
--- OUTSIDE RECORDS SUMMARY | 2024-08-26 07:34 | External Medical Summary | Summary of Care ---
Author Name Unknown Organization [facility] Address [address] [facility] [place] [address] Phone [phone] Care Team Providers Care Branch Service Specialist Name Role Phone Osito Alfaro MD Primary Care Provider [phone] Reason for Visit * Reason Onset Date Comments Test Results 08/14/2024 Encounter Details Date Type Department Care Team (Late st Contact Info) Description 08/14/2024 Telephone Cardiology, [facility] [address] [place] [address] [place], [address] [place] [address] Test Results Allergies Active Allergy Reactions Criticality Noted Date Comments Cat Dander 09/01/2016 Warfarin Hives 09/01/2016 Dust Cough 03/16/2009 Mold Cough 03/16/2009 Other Allergy (See Comments) 04/04/2022 Grass - sneezing/sinus Pollen Cough 03/16/2009 Also grass documented as of this encounter (statuses as of 08/14/2024) Medications LORATADINE 10 MG PO CAPS Take by mouth at bedtime. Active CENTRUM SILVER PO TABS daily Active Melatonin 10 MG Oral Tablet Take 1 Tablet by mouth at bedtime. 2 Active metFORMIN HCl ER 500 MG Oral Tablet Extended Release 24 Hour (Glucophage XR)Indications: DM type 2, goal HbA1c < 7.5% ([facility]) Take 2 tabs with breakfast daily. First 2 weeks- take 1 tab daily 180 Tablet 3 3 Active Rosuvastatin Calcium 10 MG Oral Tablet (Crestor)Indica tions:Dyslipide kevin, goal LDL below 70 TAKE 1 TABLET BY MOUTH ONCE DAILY IN THE EVENING 90 Tablet 3 4 Active Additional Information Patient taking differently: [id number], Reported on 08/05/2024 citalopram 5 MG OR [...] Nasal Solution (Astelin)Indica tions:Chronic rhinitis Administer 1 [place] into nostril in the morning and 1 [place] before bedtime. 90 mL 3 4 Active [...] as of this encounter (statuses as of 08/14/2024) Active Problems Problem Noted Date Diagnosed Date [...] as of this encounter (statuses as of 08/14/2024) Resolved Problems Problem Noted Date Diagnosed Date [...] as of this encounter (statuses as of 08/14/2024) Immunizations Name Administration Dates Next Due COVID-19 [...] Telephone Encounter - Roxana Gómez LPN - 08/14/2024 8:22 AM EST Mychart message sent. * Telephone Encounter - Roxana Gómez LPN - 08/14/2024 8:21 AM EST ----- Message from [place] DO sent at 08/13/2024 5:46 PM EST ----- Normal kidney function and electrolytes. Normal PT and INR. documented in this encounter Plan of Treatment Upcoming Encounters Date Type Department Care Team (Late st Contact Info) Description 09/02/2024 12:00 PM EST Office Visit General Internal Medicine [facility] [address] [facility] [place] [address] Wesley Leary DO [address] [facility] [place] [address] 11/04/2024 10:20 AM EDT Office Visit Family Practice, [place] [address] [place] [address] Osito Alfaro MD [address] [place] [address] 11/11/2024 9:00 AM EDT Nurse Only Ancillary Department, [place] [address] [place] [phone] Os[place], Nurse Annual Wellness [address] [place] [address] 05/21/2025 10:00 AM EDT Imaging Radiology [facility] [address] [place] [address] 05/28/2025 11:00 AM EDT Office Visit Urology [facility] [address] [place] [id number] Osmany White Jr., MD [address] [place] [phone] Scheduled Procedures Name Priority Associated Diagnoses Date/Ti me ESOPHAGOGASTRODUODENOSCOPY ( EGD), FLEXIBLE, TRANSORAL, DIAGNOSTIC Recall Gastritis COLONOSCOPY FLEXIBLE PROXIMAL DIAGNOSTIC Recall History of colonic polyps Health Maintenance Due Date Last Done Comments Diabetic Eye Exam 1968 Diabetic Foot Exam 1968 COVID-19 Vaccine ( season) 2024 08/18/2021, 12/27/2020, 12/05/2020 CKD PHOS USE SMARTSET 29321 10/24/2024 10/25/2023 Adult Wellness Visit 11/06/2024 11/07/2023, 11/01/19 23 Depression Monitoring 11/06/2024 11/07/2023 HbA1c 12/03/2024 06/04/2024, 1003/2024, 10/25/2023, Additional history exists GFR 02/06/2025 08/09/2024, 06/08, 06/04/2024, Additional history exists Hepatitis C Screening 04/30/2025 Postpo katiana from 1966 (Patient Declined After Education) Zoster Vaccines (2 of 2) 04/30/2025 10/25/2023 Pos tponed from 12/20/2023 (Patient Declined After Education) Albumin/Creatinine Ratio 05/14/2025 024, 06/13/2023, 12/21/2022 CKD HGB USE SMARTSET 90771 07/03/202507/03, 07/03/2024, 06/04/2024, Additional history exists DTap/Tdap [...] this encounter Medical Devices Implanted Type Area Brush Filler Hand Device Identifier Shelf Expiration Date Model / Serial / Lot Kit Accessory Ams 700 [id number] - [id number] Implanted:Qty : 1 on 03/17/2022 by Trevor Khanna MD [place] [facility] [place]A: Scrotum NONO [id number] 01/19/2027 [id number] / / [id number] Rte, Snapcone, Cx.Lgx 0.5cm - [id number] Implanted:Qty : 1 on 03/17/2022 by Trevor Khanna MD [place] [facility] [place]/A: Penis [employer] : UROLOGY [id number] 10/20/2026 [id number] / / [id number] Cx Precon Ms 21cm Ps 12cm - [id number] Implanted:Qty : 1 on 03/17/2022 by Trevor Khanna MD at [place] [facility] [place] N/A: Penis NONO [id number] 08/26/2023 [id number] / / [id number] Resvr Conceal [id number] - [id number] Implanted:Qty : 1 on 03/17/2022 by Trevor Khanna MD at [place] [facility] [place] N/A: Pelvis NONO [id number] 11/17/2023 [id number] / / [id number] documented as of this encounter Additional Health Concerns Infection Onset Date Last Indicated Resolved Time SARS-CoV-2 (COVID-19) 08/05/2024 08/05/2024 documented as of this encounter Advance Directives * Full Code (Latest Code Status on File) Date Activated Date Inactivated Comments 03/17/2022 10:18 AM 03/18/2022 2:38 PM Question Answer Comments Discussion of Advance Directives occurred with: Not Discussed Care Teams Branch Service Specialist Relationship Specialty Start Date End Date Osito Alfaro MD PCP - General Family Medicine 09/01/21 documented as of this encounter
--- OUTSIDE RECORDS SUMMARY | 2024-08-26 07:35 | External Medical Summary | Summary of Care ---
Author Name Unknown Organization [facility] Address [address] [place] [address] Phone [phone] Care Team Providers Care Plant Scientist Name Role Phone Osito Alfaro MD Primary Care Provider [phone] Reason for Visit * Reason Onset Date Comments Cardiology Study 08/09/2024 Encounter Details Date Type Department Care Team (Late st Contact Info) Description 08/09/2024 Telephone [facility] [address] [place] [phone] Osito Alfaro MD [address] [place] [phone] Cardiology Study Allergies Active Allergy Reactions Criticality [...] 4 Active Additional Information Patient taking differently: [id number], Reported on 08/05/2024 citalopram 5 MG OR [...] Nasal Solution (Astelin)Indica tions:Chronic rhinitis Administer 1 [place] into nostril in the morning and 1 [place] before bedtime. 90 mL 3 4 Active [...] mRNA, LNP-s, No Pre serve, 2-Dose Series ([employer]) 08/18/2021 Pneumococcal Conjugate Vacc, 13 Valent (Prevnar) [...] 08/09/2024 3:22 PM EST Notified crystal at [facility] that pt is back in normal sinus [...] PM EST Office Visit General Internal Medicine [facility] [place] [address] [facility] [place] [address] Wesley Leary DO [address] [place] [address] 11/04/2024 10:20 AM EDT Office Visit [facility] [place] [address] [place] [phone] Osito Alfaro MD [address] [place] [address] 11/11/2024 9:00 AM EDT Nurse Only Ancillary Department, [address] [place] [phone] Osmin, Nurse Annual Wellness [address] [place] [address] 05/21/2025 10:00 AM EDT Imaging Radiology [facility] [address] [place] [address] 05/28/2025 11:00 AM EDT Office Visit Urology Bette [address] [place] [address] Cindy Reynoso, Osmany Perez MD [address] [place] [phone] Scheduled Procedures Name Priority Associated Diagnoses Date/Ti me ESOPHAGOGASTRODUODENOSCOPY ( EGD), FLEXIBLE, TRANSORAL, DIAGNOSTIC Recall Gastritis COLONOSCOPY FLEXIBLE PROXIMAL DIAGNOSTIC Recall History of colonic polyps Health Maintenance Due Date Last Done Comments Diabetic Eye Exam 1968 Diabetic Foot Exam 1966 COVID-19 Vaccine ( season) 2024 08/18/2021, 12/27/2020, 12/05/2020 CKD PHOS USE SMARTSET 60167 10/24/2024 10/25/2023 Adult Wellness Visit 11/06/2024 11/07/2023, [...] 024, 06/13/2023, 12/21/2022 CKD HGB USE SMARTSET 20780 07/03/202507/03, 07/03/2024, 06/04/2024, Additional history exists DTap/Tdap [...] this encounter Medical Devices Implanted Type Area Developer Designer Device Identifier Shelf Expiration Date Model / Serial / Lot Kit Accessory Ams 700 [id number] - [id number] Implanted:Qty : 1 on 03/17/2022 by [place] Kh[place] [facility] [place]: Scrotum [employer] [id number] 01/19/2027 [id number] / / [id number] Rte, Snapcone, Cx.Lgx 0.5cm - [id number] Implanted:Qty : 1 on 03/17/2022 by Trevor Khanna MD [place] [facility] [place]: Penis [employer] : UROLOGY [id number] 10/20/2026 [id number] / / [id number] Cx Precon Ms 21cm Ps 12cm - [id number] Implanted:Qty : 1 on 03/17/2022 by Trevor Khanna MD [place] [facility] [place]A: Penis [employer] [id number] 08/26/2023 [id number] / / [id number] Resvr Conceal [id number] - [id number] Implanted:Qty : 1 on 03/17/2022 by Trevor Khanna MD [place] [facility] [place]: Pelvis [employer] [id number] 11/17/2023 [id number] / / [id number] documented as of this encounter Additional Health Concerns Infection Onset Date Last Indicated Resolved Time SARS-CoV-2 (COVID-19) 08/05/2024 08/05/2024 documented as of this encounter Advance Directives * Full Code (Latest Code Status on File) Date Activated Date Inactivated Comments 03/17/2022 10:18 AM 03/18/2022 2:38 PM Question Answer Comments Discussion of Advance Directives occurred with: Not Discussed Care Teams Plant Scientist Relationship Specialty Start Date End Date Osito Alfaro MD PCP - General Family Medicine 09/01/21 documented as of this encounter
--- OUTSIDE RECORDS SUMMARY | 2024-08-26 07:35 | External Medical Summary | Summary of Care ---
Author Name Unknown Organization [facility] Address [address] [place] [address] Phone [phone] Care Team Providers Care Flash Drier Operator Name Role Phone Osito Alfaro MD Primary Care Provider Reason for Visit * Reason Onset Date Comments Sinus Problem Cold Symptoms 08/05/2024 Encounter Details Date Type Department Care Team (Latest Contact Info) Description 08/05/2024 3:00 PM [facility] Convenient Care Visit [facility] [address] [place] [address] Juan Jose Brewer PA-C [address] [facility] [place] [address] Viral URI with cough*; Wheezing; SOB (shortness of breath) Allergies Active Allergy Reactions Criticality Noted Date Comments Cat Dander 09/01/2016 Warfarin Hives 09/01/2016 Dust Cough 03/16/2009 Mold Cough 03/16/2009 Other Allergy (See Comments) 04/04/2022 Grass - sneezing/sinus Pollen Cough 03/16/2009 Also grass documented as of this encounter (statuses as of 08/05/2024) Medications LORATADINE 10 MG PO CAPS Take [...] 4 Active Additional Information Patient taking differently: [id number], Reported on 08/05/2024 citalopram 5 MG OR [...] Nasal Solution (Astelin)Indica tions:Chronic rhinitis Administer 1 [place] into nostril in the morning and 1 [place] before bedtime. 90 mL 3 4 Active [...] as of this encounter (statuses as of 08/05/2024) Active Problems Problem Noted Date Diagnosed Date [...] as of this encounter (statuses as of 08/05/2024) Resolved Problems Problem Noted Date Diagnosed Date [...] as of this encounter (statuses as of 08/05/2024) Immunizations Name Administration Dates Next Due COVID-19 mRNA, LNP-s, No Pre serve, 2-Dose Series (Saiguo) 08/18/2021 Pneumococcal Conjugate Vacc, 13 Valent (Prevnar) [...] Never Smokeless Tobacco: Never Tobacco Cessation:Counseling Given: No Alcohol Use Standard Drinks/Week Comments Yes 0 [...] Sign Reading Time Taken Comments Blood Pressure 144/88 08/05/2024 2:27 PM EST Pulse 73 08/05/2024 2:27 PM EST Temperature 36.9 C (98.4 F) 08/05/2024 2:27 PM ES T Respiratory Rate 26 08/05/2024 2:27 PM EST Oxygen Saturation 94% 08/05/2024 2:27 PM EST Inhaled Oxygen Concentration - - Weight 105 kg (231 lb 6.4 oz) 08/05/2024 2:27 PM EST Height 182.9 cm (6') 08/05/2024 2:27 PM EST Body Mass Index 31.38 08/05/2024 2:27 PM EST documented in this encounter Functional Status * Are you [...] Entry Date Author No 03/17/2022 11:42 AM Magda Mendoza RN documented in this encounter Patient Instructions * Patient Instructions* Juan Jose Brewer PA-C - 08/05/2024 2:56 PM EST Chest Xray at [facility] today. Albuterol as needed Start a daily nasal spray such as Flonase, Nasacort, OR Nasonex. They work best if used consistently. In addition to one of these medicated nasal sprays use saline nasal spray to avoid dryness and thinout mucous Over the Counter (OTC) antihistamine (claritin, zyrtec, xyzal or megan) can also be helpful for sinus symptoms. OTC decongestants: Sudafed, Mucinex-D (may have to get from behind pharmacy counter; you have to show your ID) can be used for nasal/sinus congestion for just a few days. If you have high blood pressure, you can use Coricidin. OTC cough suppressants as needed, including delsym, robitussin, cough drops, honey. Continue supportive measures: Increase clear, non-sugary fluid intake. Get plenty of rest Use a cool mist vaporizer or humidifier daily and you can take hot showers for steam therapy. Do warm salt water gargles and/or chloraseptic throat spray, throat lozenges (Cepacol) for any sorethroat. Honey, if not concerned about diabetes or elevated blood sugar levels, can also be very helpful forsorethroat. You may also use ibuprofen or acetaminophen OTC for relief of pain or fevers. If you had a negative rapid strep test, we will inform you if your PCR ("the send out") comes back positive, and start you on antibiotics. Otherwise, you may assume the PCR was also negative. If you had a viral swab (e.g. COVID, Flu, RSV, or otherwise), we will notify you if you test positive. If you do not hear from us, assume your test was negative. Follow up with PCP or return if no improvement in a week, or sooner if worse. Go to the ED if any severe symptoms appear acutely documented in this encounter Progress Notes * Juan Jose Brewer PA-C - 08/05/2024 3:25 PM EST Nursing Notes: Tanner Pittman, [facility] 08/05/24 1429 Signed Clovis Bradford is a 74 year old male who presents to walk-in clinic today complaining of Chief Complaint Patient presents with Sinus Problem Brief history:Pt is present with sinus drainage, SOB, head pressure. Pt states recently having needed heimlich done because he choked on food. Onset/duration: 3x days. OTC treatments tried:tylenol, dayquil Effectiveness: has helped but not a lot Patient is accompanied by for today's visit. Clovis Bradford is a 74 year old male who presents with upper and lower respiratory symptoms for 3 day(s) Patient was accompanied by Spouse. HPI Severity of Symptoms: Moderate Modifying Factors (what was done since onset of symptoms): see nurse note Timing (how often does it occur): constant Quality (feels like): cold and flu Other associated Signs and Symptoms: nc, rhinorrhea, pnd, MAR. Reports cough, with some sputum, wheezing (intermittently). Reports malaise, fatigue, body aches. Denies CP, palp, n/v, but has had diarrhea.. Reports that he had the Heimlich performed on him within the last week ROS See HPI HISTORY Past Medical History: Diagnosis Date Prostate carcinoma (HCC) 06/03/2020 05/23/23 Urology note He has a history of prostate cancer post ERBT 08/2020 with hormone therapy. Past Surgical History: Procedure Laterality Date ARTHROPLASTY KNEE TOTAL left COLONOSCOPY, DIAGNOSTIC (RECTUM) 08/17/2022 radiation proctitis, benign adenomatous polyp, repeat 5 yrs / COLONOSCOPY FLEXIBLE PROXIMAL DIAGNOSTIC performed by Padmaja Patel DO at ENDOSCOPY [facility] COLONOSCOPY, DIAGNOSTIC (RECTUM) 03/29/2024 hemorrhoids/mild diverticulosis/radiation proctitis/biopsies show adenomatous polyps/recall 5 years/COLONOSCOPY FLEXIBLE PROXIMAL DIAGNOSTIC performed by Padamja Patel DO at ENDOSCOPY [facility] EGD, FLEXIBLE, DIAGNOSTIC 03/29/2024 LA grade B reflux esophagitis/gastritis/duodenitis/biopsies mild inflammatory changes/recall 12-18 months/ESOPHAGOGASTRODUODENOSCOPY (EGD), FLEXIBLE, TRANSORAL, DIAGNOSTIC performed by Arleen Patel DO at ENDOSCOPY [facility] INSERT MULTI-COMP PROSTHESIS, PENIS N/A 03/17/2022 INSERT PENILE PROSTHESIS INFLATABLE MULTI COMPONENT performed by Trevor Khanna MD at OR [facility] OTHER (INFORMATION) bilateral hernia REMOVAL OF TONSILS, AGE 12+ VASECTOMY Social History Tobacco Use Smoking status: Never Smokeless tobacco: Never Substance Use Topics Alcohol use: Yes Comment: rare-occ Vaping/E-Cigarette Use Vaping/E-Cigarette Use Never User Vaping/E-Cigarette Substances Nicotine No Other No Flavoring No THC No Cannabidiol (CBD) No Vaping/E-Cigarette Devices Disposable No Pre-filled or Refillable Cartridge No Refillable Tank No Pre-filled Pod No Current Outpatient Medications Medication Sig Dispense Refill [...] taking differently: every morning.) 90 Tablet 3 citalopram 5 MG OR TABS Take by mouth at bedtime. Potassium Gluconate 595 (99 K) MG Oral Tablet Take by mouth at bedtime. Omeprazole 40 MG Oral Capsule Delayed Release (PriLOSEC) Take 1 Capsule by mouth in the morning. 90Capsule 1 Escitalopram Oxalate 10 MG Oral Tablet (Lexapro) Take 1 Tablet by mouth in the morning. 90 Tablet 2 Azelastine HCl 0.1 % Nasal Solution (Astelin) Administer 1 [place] into nostril in the morning and 1 [place] before bedtime. 90 mL 3 Lisinopril 40 MG Oral Tablet Take 1 Tablet by mouth in the morning. 90 Tablet 3 Metoprolol Succinate ER 100 MG Oral Tablet Extended Release 24 Hour (Toprol XL) Take 1 Tablet by mouth in the morning. 34 Tablet 6 Metoprolol Succinate ER 50 MG Oral Tablet Extended Release 24 Hour (Toprol XL) Take 1 Tablet by mouth at bedtime. 34 Tablet 6 Apixaban 5 MG Oral Tablet (Eliquis) Take 1 Tablet by mouth in the morning and 1 Tablet before bedtime. 60 Tablet 6 Montelukast Sodium 10 MG Oral Tablet (Singulair) Take 1 Tablet by mouth in the morning. 30 Tablet 11 Albuterol Sulfate HFA 108 (90 Base) MCG/ACT Inhalation Aerosol Solution Inhale 2 Puffs by mouth every 4 hours as needed for Dyspnea or Wheezing. 18 g 0 No current facility-administered medications for this visit. Review of patient's allergies indicates: Allergen Reactions Cat Dander Coumadin [Warfarin] Hives Dust Cough Mold Cough Other Allergy (See Comments) Grass - sneezing/sinus Pollen Cough Also grass No family history on file. OBJECTIVE BP 144/88 | Pulse 73 | Temp 36.9 C (98.4 F) (Tympanic) | Resp 26 | Ht 1.829 m (6') | Wt 105 kg (231 lb 6.4 oz) | SpO2 94% | BMI 31.38 kg/m | BSA 2.31 m Wt Readings from Last 1 Encounters: 08/05/24 105 kg (231 lb 6.4 oz) General Appearance: awake, alert, no apparent distress HEENT: perrl and eomi tms - clear, normal light reflex, no erythema No sinus tenderness or facial pain to percussion + turbinate engorgement and discharge Neck: normal, supple, no adenopathy Respiratory: clear to auscultation, no rhonchi, no wheezes, and no crackles Heart: regular rate, regular rhythm, no murmurs , no rubs, and no gallops Skin: skin color, texture, turgor are normal, no rashes or significant lesions Patient Instructions Chest Xray at [facility] today. Albuterol as needed Start a daily nasal spray such as Flonase, Nasacort, OR Nasonex. They work best if used consistently. In addition to one of these medicated nasal sprays use saline nasal spray to avoid dryness and thinout mucous Over the Counter (OTC) antihistamine (claritin, zyrtec, xyzal or megan) can also be helpful for sinus symptoms. OTC decongestants: Sudafed, Mucinex-D (may have to get from behind pharmacy counter; you have to show your ID) can be used for nasal/sinus congestion for just a few days. If you have high blood pressure, you can use Coricidin. OTC cough suppressants as needed, including delsym, robitussin, cough drops, honey. Continue supportive measures: Increase clear, non-sugary fluid intake. Get plenty of rest Use a cool mist vaporizer or humidifier daily and you can take hot showers for steam therapy. Do warm salt water gargles and/or chloraseptic throat spray, throat lozenges (Cepacol) for any sorethroat. Honey, if not concerned about diabetes or elevated blood sugar levels, can also be very helpful forsorethroat. You may also use ibuprofen or acetaminophen OTC for relief of pain or fevers. If you had a negative rapid strep test, we will inform you if your PCR ("the send out") comes back positive, and start you on antibiotics. Otherwise, you may assume the PCR was also negative. If you had a viral swab (e.g. COVID, Flu, RSV, or otherwise), we will notify you if you test positive. If you do not hear from us, assume your test was negative. Follow up with PCP or return if no improvement in a week, or sooner if worse. Go to the ED if any severe symptoms appear acutely ASSESSMENT AND PLAN Viral URI with cough (Primary) - Albuterol Sulfate HFA 108 (90 Base) MCG/ACT Inhalation Aerosol Solution; Inhale 2 Puffs by mouth every 4 hours as needed for Dyspnea or Wheezing. - INFLUENZA A/B RSV SARS-COV2,PCR - XR CHEST 2 VIEWS; Future; Expected date: 08/05/2024 Wheezing - Albuterol Sulfate HFA 108 (90 Base) MCG/ACT Inhalation Aerosol Solution; Inhale 2 Puffs by mouth every 4 hours as needed for Dyspnea or Wheezing. - INFLUENZA A/B RSV SARS-COV2,PCR - XR CHEST 2 VIEWS; Future; Expected date: 08/05/2024 SOB (shortness of breath) - Albuterol Sulfate HFA 108 (90 Base) MCG/ACT Inhalation Aerosol Solution; Inhale 2 Puffs by mouth every 4 hours as needed for Dyspnea or Wheezing. Will r/o PNA with CXR Follow-up: Return if symptoms worsen or fail to improve. | Check-out note: If symtoms worsen or fail to improve Patient goals for plan of care were discussed Juan Jose Brewer PA-C [address] [address] documented in this encounter Nursing Notes * Tanner Pittman CMA - 08/05/2024 2:24 PM EST Clovis Bradford is a 74 year old male who presents to walk-in clinic today complaining of Chief Complaint Patient presents with Sinus Problem Brief history:Pt is present with sinus drainage, SOB, head pressure. Pt states recently having needed heimlich done because he choked on food. Onset/duration: 3x days. OTC treatments tried:tylenol, dayquil Effectiveness: has helped but not a lot Patient is accompanied by for today's visit. documented in this encounter Plan of Treatment Upcoming Encounters Date Type Department Care Team (Late st Contact Info) Description 09/02/2024 12:00 PM EST Office Visit General Internal Medicine [facility] [address] [place] [phone] Wesley Leary DO [address] [place] [address] 11/04/2024 10:20 AM EDT Office Visit Family Practice, [place] [address] [place] [phone] Osito Alfaro MD [address] [place] [address] 11/11/2024 9:00 AM EDT Nurse Only Ancillary Department, Osmin [place] [facility] [place] [address] Osmin, Nurse Annual Wellness [address] [place] [id number] 05/21/2025 10:00 AM EDT Imaging Radiology [facility] [address] [facility] [place] [address] 05/28/2025 11:00 AM EDT [facility] [address] [place] [address] Osmany White Jr., MD [address] [place] [address] Pending Results Name Type Priority Associated Diagnoses Date /Time INFLUENZA A/B RSV SARS-COV2,PCR Lab STAT Viral URI with cough Wheezing 08/05/2024 2:56 PM EST XR CHEST 2 VIEWS Medical Imaging STAT Viral URI with cough Wheezing 08/05/2024 3:41 PM EST Scheduled Orders Name Type Priority Associated Diagnoses Orde r Schedule XR CHEST 2 VIEWS Medical Imaging STAT Viral URI with cough Wheezing Expected: 08/05/2024, Expires: 09/05/2024 Scheduled Procedures Name Priority Associated Diagnoses Date/Ti me ESOPHAGOGASTRODUODENOSCOPY ( EGD), FLEXIBLE, TRANSORAL, DIAGNOSTIC Recall Gastritis COLONOSCOPY FLEXIBLE PROXIMAL DIAGNOSTIC Recall History of colonic polyps Health Maintenance Due Date Last Done Comments Diabetic Eye Exam 1968 Diabetic Foot Exam 1968 COVID-19 Vaccine ( season) 2024 08/18/2021, 12/27/2020, 12/05/2020 CKD PHOS USE SMARTSET 84773 10/24/2024 10/25/2023 Adult Wellness Visit 11/06/2024 11/07/2023, 11/01/19 Depression Monitoring 11/06/2024 11/07/2023 HbA1c 12/03/2024 06/04/2024, 1003/2024, 10/25/2023, Additional history exists GFR 12/31/2024 07/03/2024, 05/08, 05/14/2024, Additional history exists Hepatitis C Screening 04/30/2025 Postpo katiana from 1966 (Patient Declined After Education) Zoster Vaccines (2 of 2) 04/30/2025 10/25/2023 Pos tponed from 12/20/2023 (Patient Declined After Education) Albumin/Creatinine Ratio 05/14/2025 024, 06/13/2023, 12/21/2022 CKD HGB USE SMARTSET 22530 07/03/202507/03, 07/03/2024, 06/04/2024, Additional history exists DTap/Tdap [...] this encounter Medical Devices Implanted Type Area Net Software Developer Device Identifier Shelf Expiration Date Model / Serial / Lot Kit Accessory Ams 700 [id number] - [id number] Implanted:Qty : 1 on 03/17/2022 by Trevor Khanna MD at OR [facility] N/A: Scrotum [employer] [id number] 01/19/2027 [id number] / / [id number] Rte, Snapcone, Cx.Lgx 0.5cm - [id number] Implanted:Qty : 1 on 03/17/2022 by Trevor Khanna MD at OR [facility] N/A: Penis [employer] : UROLOGY [id number] 10/20/2026 [id number] / / [id number] Cx Precon Ms 21cm Ps 12cm - [id number] Implanted:Qty : 1 on 03/17/2022 by Trevor Khanna MD at OR [facility] N/A: Penis [employer] [id number] 08/26/2023 [id number] / / [id number] Resvr Conceal [id number] - [id number] Implanted:Qty : 1 on 03/17/2022 by Trevor Khanna MD at OR [facility] N/A: Pelvis [employer] [id number] 11/17/2023 [id number] / / [id number] documented as of this encounter Visit Diagnoses Diagnosis Viral URI with cough- Primary Acute upper respiratory infections of unspecified site Wheezing SOB (shortness of breath) Shortness of breath documented in this encounter Advance Directives * Full Code (Latest Code Status on File) Date Activated Date Inactivated Comments 03/17/2022 10:18 AM 03/18/2022 2:38 PM Question Answer Comments Discussion of Advance Directives occurred with: Not Discussed Care Teams Flash Drier Operator Relationship Specialty Start Date End Date Osito Alfaro MD PCP - General Family Medicine 09/01/21 documented as of this encounter
--- OUTSIDE RECORDS SUMMARY | 2024-08-26 07:35 | External Medical Summary | Summary of Care ---
Author Name Unknown Organization [facility] Address [address] [facility] [address] Phone [phone] Care Team Providers Care Escort Blind Name Role Phone Osito Alfaro MD Primary Care Provider [phone] Reason for Referral * Evaluate & Treat - Unlimited Visits (Within 10 days (routine)) - Authorized Specialty Diagnoses / Procedures Referred By Daryl t Referred To Contact Ophthalmology Diagnoses Vision disorder Osito Alfaro MD [address] [place] [address] [place] [address] Phone: tel: fax: Referral ID Status Reason Start Date Expiration Date Visits Requested Visits Authorized [id number] Authorized Specialty Services Required 07/15/2024 999 999 Question Answer Referral Priority Within 10 days (routine) Where should this appointment be scheduled? Claudio Referring for: Ophthalmology Conditions Ophthalmology Conditions Change in Vision Reason for Visit * Reason Onset Date Comments Appointment 07/09/2024 Encounter Details Date Type Department Care Team (Late st Contact Info) Description 07/09/2024 Telephone Ophthalmology, [facility] [address] [facility] [place] [address] Services, Scheduling [address] [place] [address] Appointment Allergies Active Allergy Reactions Criticality Noted Date Comments Cat Dander 09/01/2016 Warfarin Hives 09/01/2016 Dust Cough 03/16/2009 Mold Cough 03/16/2009 Other Allergy (See Comments) 04/04/2022 Grass - sneezing/sinus Pollen Cough 03/16/2009 Also grass documented as of this encounter (statuses as of 07/15/2024) Medications LORATADINE 10 MG PO CAPS Take [...] 4 Active Additional Information Patient taking differently: [id number], Reported on 07/10/2024 citalopram 5 MG OR TABS Take by [...] Nasal Solution (Astelin)Indica tions:Chronic rhinitis Administer 1 [place] into nostril in the morning and 1 Forest before bedtime. 90 mL 3 4 Active [...] before bedtime. 60 Tablet 6 4 Active documented as of this encounter (statuses as of 07/15/2024) Active Problems Problem Noted Date Diagnosed Date [...] as of this encounter (statuses as of 07/15/2024) Resolved Problems Problem Noted Date Diagnosed Date [...] as of this encounter (statuses as of 07/15/2024) Immunizations Name Administration Dates Next Due COVID-19 [...] of Assessment Author No 03/17/2022 11:42 AM EDT Magda Scott RN documented as of this encounter Mental Status * Because of a physical, mental, or emotional condition, do you have serious difficulty concentrating, remembering, or making decisions? (5 years old or older) Answer Entry Date Author No 03/17/2022 11:42 AM EDT Magda Sctot RN documented in this encounter Miscellaneous Notes * Telephone Encounter - Osito Alfaro MD - 07/15/2024 4:29 PM EST Refer to ophthalmology - anyone in [place] * Telephone Encounter - Danielle Olivera LPN - 07/11/2024 1:24 PM EST Sent patient, MyG message * Telephone Encounter - Osito Alfaro MD - 07/10/2024 6:08 PM EST I do not know what he is to be seen for? Does he have a regular eye care provider? I can not place referral without more info. * Telephone Encounter - Mera De Leon OSA - 07/09/2024 11:01 AM EST Who is patient being scheduled with? [facility] What is the reason the patient needs to be seen sooner? There was nothing sean at [facility] and patient do not want to go anywhere else. And I had nothing sean thru 07/2025. There is a referral in system. When is the next available appointment? N/A [facility] [facility]ION: NOTIFY PATIENT: PLEASE ALLOW US UP TO 48 HOURS FOR A RESPONSE Retinal injections should not be scheduled further out than a week or two. Any appointment related messages , [place] [id number] If appointment needed 6 weeks or less, osito as high priority. [place]: NOTIFY PATIENT: DEPARTMENT WILL BE CALLING YOU SOON THEY REVIEW THE MESSAGE. PLEASE NOTE THIS COULD BE UP TO A WEEK Any appointment related messages ,Create [place] [id number] [place]: NOTIFY PATIENT: PLEASE ALLOW US UP TO 48 HOURS FOR A RESPONSE Appointment related concerns: Create and Send Telephone Encounter to P [phone] documented in this encounter Plan of Treatment Upcoming Encounters Date Type Department Care Team (Late st Contact Info) Description 09/02/2024 12:00 PM EST Office Visit [facility] [address] [facility] [place] [address] Wesley Leary DO [address] [facility] [place] [address] 11/04/2024 10:20 AM EDT Office Visit [place], [place] [address] [facility] [place] [address] Osito Alfaro MD [address] [place] [address] 11/11/2024 9:00 AM EDT Nurse Only Ancillary Department, [place] [address] [facility] [place] [address] Osmin Nurse Annual Wellness [address] [facility] [place] [address] 05/21/2025 10:00 AM EDT Imaging Radiology [facility] [address] [facility] [place] [address] 05/28/2025 11:00 AM EDT Office Visit Urology Bette Guardado [address] [place] [phone] Cindy Reynoso, Osmany Holly MD [address] [place] [address] Scheduled Procedures Name Priority Associated Diagnoses Date/Ti me ESOPHAGOGASTRODUODENOSCOPY ( EGD), FLEXIBLE, TRANSORAL, DIAGNOSTIC Recall Gastritis COLONOSCOPY FLEXIBLE PROXIMAL DIAGNOSTIC Recall History of colonic polyps Scheduled Referrals Name Type Priority Associated Diagnoses Orde r Schedule ADULT/PEDS OPHTHALMOLOGY/OPTOM ETRY REFERRAL OP Referral Within 10 days (routine) Vision disorder Ordered: 07/15/2024 Health Maintenance Due Date Last Done Comments Diabetic Eye Exam 1968 Diabetic Foot Exam 1968 COVID-19 Vaccine ( season) 2024 08/18/2021, 12/27/2020, 12/05/2020 CKD PHOS USE SMARTSET 95340 10/24/2024 10/25/2023 Adult Wellness Visit 11/06/2024 11/07/2023, [...] 024, 06/13/2023, 12/21/2022 CKD HGB USE SMARTSET 22000 07/03/202507/03, 07/03/2024, 06/04/2024, Additional history exists DTap/Tdap [...] this encounter Medical Devices Implanted Type Area Director Of Product Design Device Identifier Shelf Expiration Date Model / Serial / Lot Kit Accessory Ams 700 [id number] - [id number] Implanted:Qty : 1 on 03/17/2022 by Tervor Khanna MD [place] [facility] [place]A: Scrotum [employer] [id number] 01/19/2027 [id number] / / [id number] Rte, Snapcone, Cx.Lgx 0.5cm - [id number] Implanted:Qty : 1 on 03/17/2022 by Trevor Khanna MD at [place] [facility] [place] N/A: Penis Confluent ([employer]bl[employer] / [employer]) : UROLOGY [id number] 10/20/2026 [id number] / / [id number] Cx Precon Ms 21cm Ps 12cm - [id number] Implanted:Qty : 1 on 03/17/2022 by Trevor Khanna MD at [place] [facility] [place] N/A: Penis [employer] [id number] 08/26/2023 [id number] / / [id number] Resvr Conceal [id number] - [id number] Implanted:Qty : 1 on 03/17/2022 by Trevor Khanna MD at [place] [facility] [place] N/A: Pelvis [employer] [id number] 11/17/2023 [id number] / / [id number] documented as of this encounter Visit Diagnoses Diagnosis Vision disorder- Primary Unspecified visual disturbance documented in this encounter Advance Directives * Full Code (Latest Code Status on File) Date Activated Date Inactivated Comments 03/17/2022 10:18 AM 03/18/2022 2:38 PM Question Answer Comments Discussion of Advance Directives occurred with: Not Discussed Care Teams Escort Blind Relationship Specialty Start Date End Date Osito Alfaro MD [address] [place] [address] PCP - General Family Medicine 09/01/21 documented as of this encounter
--- OUTSIDE RECORDS SUMMARY | 2024-08-26 07:35 | External Medical Summary | Summary of Care ---
Author Name Unknown Organization [facility] Address [address] [place] [address] Phone [phone] Care Team Providers Care Clothes Separator Name Role Phone Osito Alfaro MD Primary Care Provider [phone] Reason for Referral * Evaluate & Treat - Unlimited Visits (Within 10 days (routine)) - Authorized Specialty Diagnoses / Procedures Referred By Daryl t Referred To Contact Ophthalmology Diagnoses Vision disorder Osito Alfaro MD [address] [place] [address] [place] [address] Phone: tel: fax: Referral ID Status Reason Start Date Expiration Date Visits Requested Visits Authorized [id number] Authorized Specialty Services Required 07/15/2024 999 999 Question Answer Referral Priority Within 10 days (routine) Where should this appointment be scheduled? Claudio Referring for: Ophthalmology Conditions Ophthalmology Conditions Change in Vision Reason for Visit * Reason Onset Date Comments Appointment 07/09/2024 Encounter Details Date Type Department Care Team (Late st Contact Info) Description 07/09/2024 Telephone Ophthalmology, [facility] [address] [facility] [place] [address] Services, Scheduling [address] [place] [address] Appointment Allergies Active Allergy Reactions Criticality Noted Date Comments Cat Dander 09/01/2016 Warfarin Hives 09/01/2016 Dust Cough 03/16/2009 Mold Cough 03/16/2009 Other Allergy (See Comments) 04/04/2022 Grass - sneezing/sinus Pollen Cough 03/16/2009 Also grass documented as of this encounter (statuses as of 07/16/2024) Medications LORATADINE 10 MG PO CAPS Take [...] 4 Active Additional Information Patient taking differently: [id number], Reported on 07/10/2024 citalopram 5 MG OR [...] Nasal Solution (Astelin)Indica tions:Chronic rhinitis Administer 1 [place] into nostril in the morning and 1 [place] before bedtime. 90 mL 3 4 Active [...] as of this encounter (statuses as of 07/16/2024) Active Problems Problem Noted Date Diagnosed Date [...] as of this encounter (statuses as of 07/16/2024) Resolved Problems Problem Noted Date Diagnosed Date [...] as of this encounter (statuses as of 07/16/2024) Immunizations Name Administration Dates Next Due COVID-19 [...] encounter Miscellaneous Notes * Telephone Encounter - Ewa Piña OSA - 07/16/2024 10:20 AM EST MyG sent. 07/16/2024 * Telephone Encounter - Osito Alfaro MD - 07/15/2024 4:29 PM EST Refer to ophthalmology - anyone in [place] * Telephone Encounter - Danielle Olivera LPN [...] Who is patient being scheduled with? [facility] What is the reason the patient needs to be seen sooner? There was nothing sean at [facility] and patient do not want to go [...] [place] [phone] If appointment needed 6 weeks or less, osito as high priority. [place]: NOTIFY PATIENT: DEPARTMENT WILL BE CALLING YOU SOON THEY REVIEW THE MESSAGE. PLEASE NOTE THIS COULD BE UP TO A WEEK Any appointment related messages ,[place] [id number] [place]: NOTIFY PATIENT: PLEASE ALLOW US UP TO 48 HOURS FOR A RESPONSE Appointment related concerns: Create and Send Telephone Encounter to P [phone] documented in this encounter Plan of Treatment Upcoming Encounters Date Type Department Care Team (Late st Contact Info) Description 09/02/2024 12:00 PM EST Office Visit General Internal Medicine [facility] [address] [facility] [place] [address] Wesley Leary DO [address] [facility] [place] [address] 11/04/2024 10:20 AM EDT Office Visit Family Practice, [place] [facility] Jesus Manuel [address] [facility] [place] [phone] Osito Alfaro MD [address] [place] [address] 11/11/2024 9:00 AM EDT Nurse Only Ancillary Department, [place] Gaspar [address] [facility] [place] [phone] Osmin Nurse Annual Wellness [address] [facility] [place] [address] 05/21/2025 10:00 AM EDT Imaging Radiology [facility] [address] [facility] [place] [address] 05/28/2025 11:00 AM EDT Office Visit Urology Bette Guardado [address] [place] [address] Osmany White Jr., MD [address] [place] [address] Scheduled Procedures Name Priority Associated Diagnoses Date/Ti [...] 08/18/2021, 12/27/2020, 12/05/2020 CKD PHOS USE SMARTSET 56162 10/24/2024 10/25/2023 Adult Wellness Visit 11/06/2024 11/07/2023, [...] 024, 06/13/2023, 12/21/2022 CKD HGB USE SMARTSET 73887 07/03/202507/03, 07/03/2024, 06/04/2024, Additional history exists DTap/Tdap [...] this encounter Medical Devices Implanted Type Area Plant Guard Device Identifier Shelf Expiration Date Model / Serial / Lot Kit Accessory Ams 700 [id number] - [id number] Implanted:Qty : 1 on 03/17/2022 by [place] Khanna [place] [facility] [place]A: Scrotum [employer]ru[employer] Inc. [id number] 01/19/2027 [id number] / / [id number] Rte, Snapcone, Cx.Lgx 0.5cm - [id number] Implanted:Qty : 1 on 03/17/2022 by Trevor Khanna MD [place] [facility] [place]/A: Penis [employer] : UROLOGY [id number] 10/20/2026 [id number] / / [id number] Cx Precon Ms 21cm Ps 12cm - [id number] Implanted:Qty : 1 on 03/17/2022 by Trevor Khanna MD [place] [facility] [place] N/A: Penis [employer]ru, Inc. [id number] 08/26/2023 [id number] / / [id number] Resvr Conceal [id number] - [id number] Implanted:Qty : 1 on 03/17/2022 by Trevor Khanna MD [place] [facility] [place] N/A: Pelvis [employer]ru[employer] Inc. [id number] 11/17/2023 [id number] / / [id number] documented as of this encounter Visit Diagnoses Diagnosis Vision disorder- Primary Unspecified visual disturbance documented in this encounter Advance Directives * Full Code (Latest Code Status on File) Date Activated Date Inactivated Comments 03/17/2022 10:18 AM 03/18/2022 2:38 PM Question Answer Comments Discussion of Advance Directives occurred with: Not Discussed Care Teams Clothes Separator Relationship Specialty Start Date End Date Osito Alfaro MD [address] [place] [address] PCP - General Family Medicine 09/01/21 documented as of this encounter
--- OUTSIDE RECORDS SUMMARY | 2024-08-26 07:35 | External Medical Summary | Summary of Care ---
Author Name Unknown Organization [facility] Address [address] [facility] [place] [address] Phone [phone] Care Team Providers Care Predatory Animal Hunter Name Role Phone Osito Alfaro MD Primary Care Provider [phone] Reason for Visit * Reason Comments Outpatient Testing Encounter Details Date Type Department Care Team (Late st Contact Info) Description 08/09/2024 2:50 PM EST Laboratory Laboratory, Osmin Sheikh [address] [facility] [place] [phone] [facility] [place] [address] PAF (paroxysmal atrial fibrillation) ([facility]); Pre-op testing Allergies Active Allergy Reactions Criticality Noted Date [...] DM type 2, goal HbA1c < 7.5% ([facility]) Take 2 tabs with breakfast daily. First 2 weeks- take 1 tab daily 180 Tablet 3 3 Active Rosuvastatin Calcium 10 MG Oral Tablet (Crestor)Indica tions:Dyslipide kevin, goal LDL below 70 TAKE 1 TABLET BY MOUTH ONCE DAILY IN THE EVENING 90 Tablet 3 4 Active Additional Information Patient taking differently: [id number], Reported on 08/05/2024 citalopram 5 MG OR [...] Nasal Solution (Astelin)Indica tions:Chronic rhinitis Administer 1 [place] into nostril in the morning and 1 [place] before bedtime. 90 mL 3 4 Active [...] mRNA, LNP-s, No Pre serve, 2-Dose Series (DICOM Grid) 08/18/2021 Pneumococcal Conjugate Vacc, 13 Valent (Prevnar) [...] Magda Scott RN documented in this encounter Plan of Treatment Upcoming Encounters Date Type Department Care Team (Late st Contact Info) Description 09/02/2024 12:00 PM EST Office Visit General Internal Medicine [facility] [address] [facility] [place] [address] Wesley Leary, DO [address] [facility] [place] [address] 11/04/2024 10:20 AM EDT Office Visit Family Practice, [place] Ken [address] [place] [phone] Osito Alfaro MD [address] [place] [address] 11/11/2024 9:00 AM EDT Nurse Only Ancillary Department, [place] Gaspar [address] [place] [phone] Osmin, Nurse Annual Wellness [address] [place] [address] 05/21/2025 10:00 AM EDT Imaging Radiology [facility] [address] [facility] [place] [address] 05/28/2025 11:00 AM EDT Office Visit Urology Bette Guardado [address] [place] [address] Osmany White Jr., MD [address] [place] [address] Pending Results Name Type Priority Associated Diagnoses Date /Time BASIC METABOLIC PANEL Lab Routine PAF (paroxysmal atrial fibrillation) (HCC) Pre-op testing 08/09/2024 2:18 PM EST PT INR Lab Routine PAF (paroxysmal atrial fibrillation) (HCC) Pre-op testing 08/09/2024 2:18 PM EST Scheduled Procedures Name Priority Associated Diagnoses Date/Ti me ESOPHAGOGASTRODUODENOSCOPY ( EGD), FLEXIBLE, TRANSORAL, DIAGNOSTIC Recall Gastritis COLONOSCOPY FLEXIBLE PROXIMAL DIAGNOSTIC Recall History of colonic polyps Health Maintenance Due Date Last Done Comments Diabetic Eye Exam 1966 Diabetic Foot Exam 1966 COVID-19 Vaccine ( season) 2024 08/18/2021, 12/27/2020, 12/05/2020 CKD PHOS USE SMARTSET 42567 10/24/2024 10/25/2023 Adult Wellness Visit 11/06/2024 11/07/2023, [...] 024, 06/13/2023, 12/21/2022 CKD HGB USE SMARTSET 06163 07/03/202507/03, 07/03/2024, 06/04/2024, Additional history exists DTap/Tdap [...] this encounter Medical Devices Implanted Type Area Laboratory Machinist Device Identifier Shelf Expiration Date Model / Serial / Lot Kit Accessory Ams 700 [id number] - [id number] Implanted:Qty : 1 on 03/17/2022 by Trevor Khanna MD [place] [facility] [place]A: Scrotum 5gig [id number] 01/19/2027 [id number] / / [id number] Rte, Snapcone, Cx.Lgx 0.5cm - [id number] Implanted:Qty : 1 on 03/17/2022 by Trevor Khanna MD at [place] [facility] [place] N/A: Penis [employer] : UROLOGY [id number] 10/20/2026 [id number] / / [id number] Cx Precon Ms 21cm Ps 12cm - [id number] Implanted:Qty : 1 on 03/17/2022 by Trevor Khanna MD at [place] [facility] [place] N/A: Penis 5gig [id number] 08/26/2023 [id number] / / [id number] Resvr Conceal [id number] - [id number] Implanted:Qty : 1 on 03/17/2022 by Trevor Khanna MD at [place] [facility] [place] N/A: Pelvis 5gig [id number] 11/17/2023 [id number] / / [id number] documented as of this encounter Visit Diagnoses Diagnosis PAF (paroxysmal atrial fibrillation) (HCC) Atrial fibrillation Pre-op testing Preoperative examination, unspecified documented in this encounter Additional Health Concerns Infection Onset Date Last Indicated Resolved Time SARS-CoV-2 (COVID-19) 08/05/2024 08/05/2024 documented as of this encounter Advance Directives * Full Code (Latest Code Status on File) Date Activated Date Inactivated Comments 03/17/2022 10:18 AM 03/18/2022 2:38 PM Question Answer Comments Discussion of Advance Directives occurred with: Not Discussed Care Teams Predatory Animal Hunter Relationship Specialty Start Date End Date Osito Alfaro MD PCP - General Family Medicine 09/01/21 documented as of this encounter
--- OUTSIDE RECORDS SUMMARY | 2024-08-26 07:35 | External Medical Summary | Summary of Care ---
Author Name Unknown Organization [facility] Address [address] [facility] [place] [address] Phone [phone] Care Team Providers Care Detention Deputy Name Role Phone Osito Alfaro MD Primary Care Provider [phone] Reason for Visit * Reason Comments EKG Patient stopped in t he office today for an EKG per cardiology Encounter Details Date Type Department Care Team (Late st Contact Info) Description 08/09/2024 2:30 PM EST Nurse Only Ancillary Department, Osmin Gaspar [address] [place] [address] [phone] Osmin Nurse [address] [place] [address] EKG (Patient stopped in the office today f... Allergies Active Allergy Reactions Criticality Noted Date [...] DM type 2, goal HbA1c < 7.5% ([facility]) Take 2 tabs with breakfast daily. First 2 weeks- take 1 tab daily 180 Tablet 3 3 Active Rosuvastatin Calcium 10 MG Oral Tablet (Crestor)Indica tions:Dyslipide kevin, goal LDL below 70 TAKE 1 TABLET BY MOUTH ONCE DAILY IN THE EVENING 90 Tablet 3 4 Active Additional Information Patient taking differently: [id number], Reported on 08/05/2024 citalopram 5 MG OR [...] Nasal Solution (Astelin)Indica tions:Chronic rhinitis Administer 1 [place] into nostril in the morning and 1 [place] before bedtime. 90 mL 3 4 Active [...] mRNA, LNP-s, No Pre serve, 2-Dose Series (BEKIZ) 08/18/2021 Pneumococcal Conjugate Vacc, 13 Valent (Prevnar) [...] money to buy more. Never true 11/07/19 Within the past 12 months, t he [...] Assessment Author No 03/17/2022 11:42 AM EDT Tyler, Magda, RN documented as of this encounter Mental Status * Because of a physical, mental, or emotional condition, do you have serious difficulty concentrating, remembering, or making decisions? (5 years old or older) Answer Entry Date Author No 03/17/2022 11:42 AM EDT Magda Scott RN documented in this encounter Nursing Notes * Danielle Olivera LPN - 08/09/2024 2:42 PM EST The patient has been properly identified by confirmation of name and date of . Chief Complaint Patient presents with EKG Patient stopped in the office today for an EKG per cardiology ekg done as per 's order documented in this encounter Plan of Treatment Upcoming Encounters Date Type Department Care Team (Late st Contact Info) Description 09/02/2024 12:00 PM EST Office Visit General Internal Medicine [facility] [place] [address] [facility] [place] [address] Wesley Leary DO [address] [facility] [place] [address] 11/04/2024 10:20 AM EDT Office Visit Family Practice, Osmin Ken [address] [place] [address] [phone] Osito Alfaro MD [address] [address] 11/11/2024 9:00 AM EDT Nurse Only Ancillary Department, Osmin Gaspar [address] [place] [address] [phone] Osmin Nurse Annual Wellness [address] [place] [address] 05/21/2025 10:00 AM EDT Imaging Radiology [facility] [address] [place] [address] 05/28/2025 11:00 AM EDT Office Visit Urology Bette Guardado [address] [place] [address] Osmany White Jr., MD [address] [place] [address] Scheduled Procedures Name Priority Associated Diagnoses Date/Ti me ESOPHAGOGASTRODUODENOSCOPY ( EGD), FLEXIBLE, TRANSORAL, DIAGNOSTIC Recall Gastritis COLONOSCOPY FLEXIBLE PROXIMAL DIAGNOSTIC Recall History of colonic polyps Health Maintenance Due Date Last Done Comments Diabetic Eye Exam 1968 Diabetic Foot Exam 1966 COVID-19 Vaccine ( season) 2024 08/18/2021, 12/27/2020, 12/05/2020 CKD PHOS USE SMARTSET 75604 10/24/2024 10/25/2023 Adult Wellness Visit 11/06/2024 11/07/2023, [...] 024, 06/13/2023, 12/21/2022 CKD HGB USE SMARTSET 74532 07/03/202507/03, 07/03/2024, 06/04/2024, Additional history exists DTap/Tdap [...] encounter Medical Devices Implanted Type Area Service Trainer Device Identifier Shelf Expiration Date Model / Serial / Lot Kit Accessory Ams 700 [id number] - [id number] Implanted:Qty : 1 on 03/17/2022 by Trevor Khanna MD at [place] [facility] [place] N/A: Scrotum [employer] NET [id number] 01/19/2027 [id number] / / [id number] Rte, Snapcone, Cx.Lgx 0.5cm - [id number] Implanted:Qty : 1 on 03/17/2022 by Trevor Khanna MD at [place] [facility] N/A: Penis [employer] : UROLOGY [id number] 10/20/2026 [id number] / / [id number] Cx Precon Ms 21cm Ps 12cm - [id number] Implanted:Qty : 1 on 03/17/2022 by Trevor Khanna MD at [place] [facility] N/A: Penis [employer] NET [id number] 08/26/2023 [id number] / / [id number] Resvr Conceal 023731-26 - [id number] Implanted:Qty : 1 on 03/17/2022 by Trevor Khanna MD at [place] [facility] N/A: Pelvis [employer] NET [id number] 11/17/2023 [id number] / / [id number] documented as of this encounter Visit Diagnoses Diagnosis PAF (paroxysmal atrial fibrillation) (HCC)- Primary Atrial fibrillation Pre-op testing Preoperative examination, unspecified [...] Directives occurred with: Not Discussed Care Teams Detention Deputy Relationship Specialty Start Date End Date Osito Alfaro MD PCP - General Family Medicine 09/01/21 documented as of this encounter
--- OUTSIDE RECORDS SUMMARY | 2024-08-26 07:35 | External Medical Summary ---
Author Name Unknown Address Unknown Organization K01:[place] [place] [address] [facility] [address] Laboratory Report Ordering Provider Test Date Status CAROLYN JACQUES 08/05/2024 14:56:00 Final Observation Date Value Abnormality Reference (Units ) Status SARS Coronavirus 2 08/05/2024 14:56:00 Positive Abnormal N egative Final SARS-CoV2 Coronavirus RNA de tected by PCR (amplified probe). Test results reported to [facility].
This automated test was developed and its performance characteristics determined by [facility]. It has not been cleared or approved by the U.S. Food and Drug Administration (FDA). FDA does not require this test to go thru premarket FDA review. This test is used for clinical purposes. It should not be regarded as investigational or for research. This laboratory is certified under the Clinical Laboratory Improvement Amendments (CLIA) as qualified to perform high complexity clinical laboratory testing.

This test is a nucleic acid amplification test (NAAT), a reverse transcriptase polymerase chain reaction (RT-PCR) test, or a Centers for Disease Control- acceptable equivalent. The test is performed in a high complexity Clinical Laboratory Improvement Amendments-(CLIA) certified laboratory. The test is acceptable for SARS-CoV-2 diagnosis, surveillance, and travel within the [place] and to most countries. Please check with local testing authorities about requirements before travel.

The validation of bronchial specimens, tracheal aspirates, and sputum for this assay was developed and performance characteristics determined by [facility]. The validation of alternate specimen types has not been cleared or approved by the U.S. Food and Drug Administration (FDA). It has been determined that such clearance or approval is not necessary. Influenza virus A RNA [Prese nce] in Specimen by [facility] with probe detection 08/05/2024 14:56:00 Negative Negative Final No Influenza A RNA detected by PCR (amplified probe) Influenza virus B RNA [Prese nce] in Specimen by [facility]IP with probe detection 08/05/2024 14:56:00 Negative Negative Final No Influenza B RNA detected by PCR (amplified probe) Respiratory syncytial virus RNA [Identifier] in Specimen by PH[facility]IP with probe detection 08/05/2024 14:56:00 Negative Negative Final No Respiratory Syncytial Vir us RNA detected by PCR (amplified probe) Performing Location LABORATORY [place] [address] [address] [facility] [address]
--- OUTSIDE RECORDS SUMMARY | 2024-08-26 07:35 | External Medical Summary | Summary of Care ---
Author Name Unknown Organization [facility] Address [address] [facility] [place] [address] Phone [phone] Care Team Providers Care Physical Testing Supervisor Name Role Phone Osito Alfaro MD Primary Care Provider [phone] Encounter Details Date Type Department Care Team (Late st Contact Info) Description 07/16/2024 Telephone Ophthalmology, [facility] [address] [place] [address] Prashanth Eddy DO [address] [place] [address] Allergies Active Allergy Reactions Criticality Noted Date [...] 4 Active Additional Information Patient taking differently: [id number], Reported on 07/10/2024 citalopram 5 MG OR [...] Nasal Solution (Astelin)Indica tions:Chronic rhinitis Administer 1 [place] into nostril in the morning and 1 [place] before bedtime. 90 mL 3 4 Active [...] mRNA, LNP-s, No Pre serve, 2-Dose Series (Rogate) 08/18/2021 Pneumococcal Conjugate Vacc, 13 Valent (Prevnar) [...] Magda Mendoza RN documented in this encounter Miscellaneous Notes * Telephone Encounter - Wanda Souza RN - 07/16/2024 8:15 AM EST Spoke to pt. 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 Ophth. Not PCP. Pt. Stated he will f/u with Gen. Ophth. He has seen in the past. Wanda Souza RN 07/16/2024 8:16 AM documented in this encounter Plan of Treatment Upcoming Encounters Date Type Department Care Team (Late st Contact Info) Description 09/02/2024 12:00 PM EST Office Visit General Internal Medicine [facility] [address] [facility] [place] [address] Wesley Leary DO [address] [facility] [place] [id number] 11/04/2024 10:20 AM EDT Office Visit Family [facility] [address] [place] [phone] Osito Alfaro MD [address] [facility] [place] [address] 11/11/2024 9:00 AM EDT Nurse Only Ancillary Department, [facility] [address] [facility] [place] [phone] [place], Nurse Annual Wellness [address] [place], [place] [id number] 05/21/2025 10:00 AM EDT Imaging Radiology [facility] [address] [facility] [place] [address] 05/28/2025 11:00 AM EDT Office Visit Urology Bette Guardado [address] [place] [address] Osmany White Jr., MD [address] [place] [address] Scheduled Procedures Name Priority Associated Diagnoses Date/Ti mn ESOPHAGOGASTRODUODENOSCOPY ( EGD), FLEXIBLE, TRANSORAL, DIAGNOSTIC Recall Gastritis COLONOSCOPY FLEXIBLE PROXIMAL DIAGNOSTIC Recall History of colonic polyps Health Maintenance Due Date Last Done Comments Diabetic Eye Exam 1966 Diabetic Foot Exam 1966 COVID-19 Vaccine (2023- season) 2024 08/18/2021, 12/27/2020, 12/05/2020 CKD PHOS USE SMARTSET 49757 10/24/2024 10/25/2023 Adult Wellness Visit 11/06/2024 11/07/2023, [...] 024, 06/13/2023, 12/21/2022 CKD HGB USE SMARTSET 39749 07/03/202507/03, 07/03/2024, 06/04/2024, Additional history exists DTap/Tdap [...] this encounter Medical Devices Implanted Type Area Fish Packer Device Identifier Shelf Expiration Date Model / Serial / Lot Kit Accessory Ams 700 [id number] - [id number] Implanted:Qty : 1 on 03/17/2022 by Trevor Khanna MD at [place] [facility] N/A: Scrotum [employer] [id number] 01/19/2027 [id number] / / [id number] Rte, Snapcone, Cx.Lgx 0.5cm - [id number] Implanted:Qty : 1 on 03/17/2022 by Trevor Khanna MD at OR [facility] N/A: Penis [employer] : UROLOGY [id number] 10/20/2026 [id number] / / [id number] Cx Precon Ms 21cm Ps 12cm - [id number] Implanted:Qty : 1 on 03/17/2022 by Trevor Khanna MD at OR [facility] N/A: Penis [employer] [id number] 08/26/2023 [id number] / / [id number] Resvr Conceal 810350-27 - [id number] Implanted:Qty : 1 on 03/17/2022 by Trevor Khanna MD at OR [facility] N/A: Pelvis [employer] [id number] 11/17/2023 [id number] / / [id number] documented as of this encounter Advance Directives * Full Code (Latest Code Status on File) Date Activated Date Inactivated Comments 03/17/2022 10:18 AM 03/18/2022 2:38 PM Question Answer Comments Discussion of Advance Directives occurred with: Not Discussed Care Teams Physical Testing Supervisor Relationship Specialty Start Date End Date Osito Alfaro MD [address] [place] [address] PCP - General Family Medicine 09/01/21 documented as of this encounter
--- OUTSIDE RECORDS SUMMARY | 2024-08-26 07:35 | External Medical Summary | Summary of Care ---
Author Name Unknown Organization [facility] Address [address] [facility] [place] [place] [address] Phone [phone] Care Team Providers Care Criminal Defense Lawyer Name Role Phone Osito Alfaro MD Primary Care Provider [phone] Reason for Referral * Evaluate & Treat - Unlimited Visits (Within 10 days (routine)) - Authorized Specialty Diagnoses / Procedures Referred By Daryl t Referred To Contact Ophthalmology Diagnoses Vision disorder Osito Alfaro MD [address] [place] [address] [place] [address] Phone: tel: fax: Referral ID Status Reason Start Date Expiration Date Visits Requested Visits Authorized [id number] Authorized Specialty Services Required 07/15/[phone] Question Answer Referral Priority Within 10 days (routine) Where should this appointment be scheduled? [facility] Referring for: Ophthalmology Conditions Ophthalmology Conditions Change in Vision Reason for Visit * Reason Onset Date Comments Appointment 07/09/2024 Encounter Details Date Type Department Care Team (Late st Contact Info) Description 07/09/2024 Telephone Ophthalmology, [facility] [address] [facility] [place] [address] Services, Scheduling [address] [place] [address] Appointment Allergies Active Allergy Reactions Criticality Noted Date Comments Cat Dander 09/01/2016 Warfarin Hives 09/01/2016 Dust Cough 03/16/2009 Mold Cough 03/16/2009 Other Allergy (See Comments) 04/04/2022 Grass - sneezing/sinus Pollen Cough 03/16/2009 Also grass documented as of this encounter (statuses as of 07/24/2024) Medications LORATADINE 10 MG PO CAPS Take [...] 4 Active Additional Information Patient taking differently: [id number], Reported on 07/10/2024 citalopram 5 MG OR [...] Nasal Solution (Astelin)Indica tions:Chronic rhinitis Administer 1 [place] into nostril in the morning and 1 [place] before bedtime. 90 mL 3 4 Active [...] as of this encounter (statuses as of 07/24/2024) Active Problems Problem Noted Date Diagnosed Date [...] as of this encounter (statuses as of 07/24/2024) Resolved Problems Problem Noted Date Diagnosed Date [...] as of this encounter (statuses as of 07/24/2024) Immunizations Name Administration Dates Next Due COVID-19 [...] Telephone Encounter - Ewa Piña OSA - 07/24/2024 3:34 PM EST Spoke to patient and he will call to schedule at his convenience. 07/24/2024 * Telephone Encounter - Ewa Piña OSA - 07/16/2024 10:20 AM EST MyG sent. 07/16/2024 * Telephone Encounter - Osito Alfrao MD - 07/15/2024 4:29 PM EST Refer to ophthalmology - anyone in [place] * Telephone Encounter - Danielle Olivera LPN [...] Who is patient being scheduled with? [facility] What is the reason the patient needs to be seen sooner? There was nothing sean at [facility] and patient do not want to go [...] [place] [id number] If appointment needed 6 weeks or less, osito as high priority. [facility]: NOTIFY PATIENT: DEPARTMENT WILL BE CALLING YOU SOON THEY REVIEW THE MESSAGE. PLEASE NOTE THIS COULD BE UP TO A WEEK Any appointment related messages ,[place] [id number] [facility]: NOTIFY PATIENT: PLEASE ALLOW US UP TO 48 HOURS FOR A RESPONSE Appointment related concerns: Create and Send Telephone Encounter to P [id number] documented in this encounter Plan of Treatment Upcoming Encounters Date Type Department Care Team (Late st Contact Info) Description 09/02/2024 12:00 PM EST Office Visit General Internal Medicine [facility] [place] [address] [facility] [place] [address] Wesley Leary, [address] [facility] [place] [address] 11/04/2024 10:20 AM EDT Office Visit Family Practice, Osmin Ken [address] [place] [phone] Osito Alfaro MD [address] [place] [id number] 11/11/2024 9:00 AM EDT Nurse Only Ancillary Department, Osmin Gaspar [address] [place] [phone] [place], Nurse Annual Wellness [address] [facility] [place] [address] 05/21/2025 10:00 AM EDT Imaging Radiology [facility] [address] [place] [address] 05/28/2025 11:00 AM EDT Office Visit Urology Bette Guardado [address] [place] [address] Osmany White Jr., MD [address] [place] [address] Scheduled Procedures Name Priority Associated Diagnoses Date/Ti [...] 08/18/2021, 12/27/2020, 12/05/2020 CKD PHOS USE SMARTSET 29150 10/24/2024 10/25/2023 Adult Wellness Visit 11/06/2024 11/07/2023, [...] 024, 06/13/2023, 12/21/2022 CKD HGB USE SMARTSET 26192 07/03/202507/03, 07/03/2024, 06/04/2024, Additional history exists DTap/Tdap [...] this encounter Medical Devices Implanted Type Area Psychiatric Specialist Device Identifier Shelf Expiration Date Model / Serial / Lot Kit Accessory Ams 700 [id number] - [id number] Implanted:Qty : 1 on 03/17/2022 by Trevor Khanna MD at [place] [facility] [place] N/A: Scrotum [employer] [id number] 01/19/2027 [id number] / / [id number] Rte, Snapcone, Cx.Lgx 0.5cm - [id number] Implanted:Qty : 1 on 03/17/2022 by Trevor Khanna MD at [place] [facility] [place] N/A: Penis [employer] : UROLOGY [id number] 10/20/2026 [id number] / / [id number] Cx Precon Ms 21cm Ps 12cm - [id number] Implanted:Qty : 1 on 03/17/2022 by Trevor Khanna MD at [place] [facility] [place] N/A: Penis [employer] [id number] 08/26/2023 [id number] [facility] 041522-91 - [id number] Implanted:Qty : 1 on 03/17/2022 by Trevor Khanna MD at [place] [facility] [place] N/A: Pelvis [employer] [id number] 11/17/2023 [id number] / [id number] documented as of this encounter Visit Diagnoses Diagnosis Vision disorder- Primary Unspecified visual disturbance documented in this encounter Advance Directives * Full Code (Latest Code Status on File) Date Activated Date Inactivated Comments 03/17/2022 10:18 AM 03/18/2022 2:38 PM Question Answer Comments Discussion of Advance Directives occurred with: Not Discussed Care Teams Criminal Defense Lawyer Relationship Specialty Start Date End Date Osito Alfaro MD PCP - General Family Medicine 09/01/21 documented as of this encounter
--- OUTSIDE RECORDS SUMMARY | 2024-08-26 07:35 | External Medical Summary ---
Author Name Unknown Address Unknown Organization K01:LABORATORY [facility] [place] - [address] [facility] [address] [place] [address] Laboratory Report Ordering Provider Test Date Status ALESSIO BRITO 08/09/2024 14:18:55 Final Observation Date Value Abnormality Reference (Units ) Status BUN 08/09/2024 14:18:55 18 6-20 (mg/dL) Final Creatinine 08/09/2024 14:18:55 1.2 0.6-1.2 (mg/dL) Final Glomerular filtration rate/1.73 sq M.predicted [Volume Rate/Area] in Serum, Plasma or Blood by Creatinine-based formula (CKD-EPI) 08/09/2024 14:18:55 64 >=60 (mL/min) Final eGFR is calculated based on the CKD-EPI 2020 equation. Sodium 08/09/2024 14:18:55 143 135-146 (m mol/L) Final Potassium 08/09/2024 14:18:55 4.7 3.5-5.1 (m mol/L) Final Cl 08/09/2024 14:18:55 107 98-107 (mm ol/L) Final CO2 08/09/2024 14:18:55 26 22-32 (mmo l/L) Final Anion gap 08/09/2024 14:18:55 10 7-15 (mmol /L) Final Glucose 08/09/2024 14:18:55 108 70-120 (mg /dL) Final Calcium 08/09/2024 14:18:55 9.9 8.4-10.2 ( mg/dL) Final Performing Location LAB[facility]ATORY [facility] [place] - [address] [place] [address]
--- OUTSIDE RECORDS SUMMARY | 2024-08-26 07:35 | External Medical Summary ---
Author Name Unknown Address Unknown Organization K01:LABORATORY [facility] [place] - [address] [place] [address] Laboratory Report Ordering Provider Test Date Status ALESSIO BRITO 08/09/2024 14:18:55 Final Warfarin Therapy
INR: 2 .0-3.0 conventional anticoagulation
INR: 2.5- 3.5 high intensity anticoagulation Observation Date Value Abnormality Reference (Units ) Status PT 08/09/2024 14:18:55 14.6 11.6-15.2 (seconds) Final INR 08/09/2024 14:18:55 1.1 0.8-1.2 Final Performing Location LABORATORY [facility] [place] - [address] [place] [address]
--- OUTSIDE RECORDS SUMMARY | 2024-08-26 07:36 | External Medical Summary ---
Author Name Unknown Address Unknown Organization K0G:LABORATORY [place] [address] - [address] [place] [address] Laboratory Report Ordering Provider Test Date Status ALESSIO BRITO 07/03/2024 09:34:08 Final Observation Date Value Abnormality Reference (Units ) Status BUN 07/03/2024 09:34:08 17 6-20 (mg/dL) Final Creatinine 07/03/2024 09:34:08 1.3 Above high normal 0.6-1.2 (mg/dL) Final Glomerular filtration rate/1.73 sq M.predicted [Volume Rate/Area] in Serum, Plasma or Blood by Creatinine-based formula (CKD-EPI) 07/03/2024 09:34:08 55 Below low normal >=60 (mL/min) Final eGFR is calculated based on the CKD-EPI 2020 equation. Sodium 07/03/2024 09:34:08 138 135-146 (m mol/L) Final Potassium 07/03/2024 09:34:08 4.5 3.5-5.1 (m mol/L) Final Cl 07/03/2024 09:34:08 102 98-107 (mm ol/L) Final CO2 07/03/2024 09:34:08 26 22-32 (mmo l/L) Final Anion gap 07/03/2024 09:34:08 10 7-15 (mmol /L) Final Glucose 07/03/2024 09:34:08 164 Above high normal 70 -120 (mg/dL) Final Calcium 07/03/2024 09:34:08 9.9 8.4-10.2 ( mg/dL) Final Performing Location LABORATORY [place] [address] - [address] [place] [address]
--- OUTSIDE RECORDS SUMMARY | 2024-08-26 07:36 | External Medical Summary | Summary of Care ---
Author Name Unknown Organization [facility] Address [address] [facility] [place] [address] Phone [phone] Care Team Providers Care Roller Bearing Inspector Name Role Phone Osito Alfaro MD Primary Care Provider [phone] Reason for Visit * Reason Comments Follow Up * Evaluate & Treat - Unlimited Visits (Within 10 days (routine)) - Authorized Specialty Diagnoses / Procedures Referred By Contact Referred To Contact Cardiovascular Medicine / Cardiology Diagnoses HTN, goal below 140/90 Dilated aortic root (HCC) Ewa Rush DO [address] [place] [address] Phone: tel: fax: Referral ID Status Reason Start Date Expiration Date Visits Requested Visits Authorized [id number] Authorized Specialty Services Required 04/11/[id number] Encounter Details Date Type Department Care Team (Late st Contact Info) Description 07/03/2024 8:30 AM EST Office Visit Cardiology, [facility] [address] [place] [address] [place] En[place] DO [address] [place] [address] PAF (paroxysmal atrial fibrillation) (HCC)*; Aneurysm of ascending aorta without rupture (HCC); Hypotension due to drugs Allergies Active Allergy Reactions Criticality Noted Date Comments Cat Dander 09/01/2016 Warfarin Hives 09/01/2016 Dust Cough 03/16/2009 Mold Cough 03/16/2009 Other Allergy (See Comments) 04/04/2022 Grass - sneezing/sinus Pollen Cough 03/16/2009 Also grass documented as of this encounter (statuses as of 07/03/2024) Medications LORATADINE 10 MG PO CAPS Take [...] 4 Active Additional Information Patient taking differently: [id number], Reported on 07/03/2024 citalopram 5 MG OR TABS Take by [...] Nasal Solution (Astelin)Indica tions:Chronic rhinitis Administer 1 [place] into nostril in the morning and 1 [place] before bedtime. 90 mL 3 4 Active [...] before bedtime. 60 Tablet 6 4 Active Metoprolol Succinate ER 100 MG Oral Tablet Extended Release 24 Hour (toPROL XL)Indications: Aneurysm of ascending aorta without rupture (HCC),HTN, goal below 140/90 1 tablet in the morning 1/2 in the evening 135 Tablet 1 4 024 Discontin ued(Medic ation/Dos e Changed) amLODIPine Besylate 10 MG Oral Tablet (Norvasc)Indica tions:HTN, goal below 140/90 Take 1 Tablet by mouth in the morning. 90 Tablet 3 4 024 Discontin ued(Adver se reaction) Amoxicillin-Pot Clavulanate 875-125 MG Oral Tablet (Augmentin) Take 1 Tablet by mouth in the morning and 1 Tablet at noon and 1 Tablet before bedtime. 4 024 Discontin ued(Patie nt preferenc e/discont inuation) Clindamycin HCl 300 MG Oral Capsule Take 1 Capsule by mouth every 6 hours. 4 024 Discontin ued(Patie nt preferenc e/discont inuation) Metoprolol Succinate ER 25 MG Oral Tablet Extended Release 24 Hour (toPROL XL) Take 1 Tablet by mouth at bedtime. 4 024 Discontin ued(Medic ation/Dos e Changed) Montelukast Sodium 10 MG Oral Tablet (Singulair)Scarlett cations:Post-na souleymane drip Take 1 Tablet by mouth in the morning. 30 Tablet 4 024 Discontin ued(Patie nt preferenc e/discont inuation) documented as of this encounter (statuses as of 07/03/2024) Active Problems Problem Noted Date Diagnosed Date [...] as of this encounter (statuses as of 07/03/2024) Resolved Problems Problem Noted Date Diagnosed Date [...] as of this encounter (statuses as of 07/03/2024) Immunizations Name Administration Dates Next Due COVID-19 [...] Sign Reading Time Taken Comments Blood Pressure 96/62 07/03/2024 8:41 AM EST Pulse 112 07/03/2024 8:41 AM EST Temperature - - Respiratory Rate 16 07/03/2024 8:41 AM EST Oxygen Saturation - - Inhaled Oxygen Concentration - - Weight 105.6 kg (232 lb 12.8 oz) 07/03/2024 8:37 AM EST Height - - Body Mass Index 34.36 06/18/2024 4:03 PM EST documented in this encounter Functional [...] Assessment Author No 03/17/2022 11:42 AM EDT Armstrong, Magda, RN documented as of this encounter Mental Status * Because of a physical, mental, or emotional condition, do you have serious difficulty concentrating, remembering, or making decisions? (5 years old or older) Answer Entry Date Author No 03/17/2022 11:42 AM Magda Mendoza RN documented in this encounter Progress Notes * [place] Ennis DO - 07/03/2024 8:35 AM EST SUBJECTIVE: Patient returns today for hospital follow-up. First evaluation with the undersigned. Admitted to [facility] 05/22/2024 due to sepsis. Patient had dental surgery May 22, 2024 with removal of the old implant with new implant placement. Developed right-sided facial pain and swelling and presented to the emergency department. Eyelid was apparently swollen shut. Admitted with a diagnosis ofsepsis, and treated with oral antibiotics. Elevated heart rate was recorded during admission, however, no ECG was obtained. ECG today demonstrating atrial fibrillation with rapid ventricular response, ventricular rate 107 beats per minute. Remote history of TIA. Reports low blood pressure at home. Holding p.m. dose of metoprolol. Reports low blood pressure at home with systolic blood pressures in the 80s and 90s. Denies lightheadedness, however, notes significant fatigue. Napping daily. Recently able to perform his work out at the gym however felt extremely fatigued afterward. Denies palpitations, chest discomfort, or unusual shortness of breath. No syncope or near syncope. Denies personal history of coronary disease, congestive heart failure, or rheumatic fever as a child. 2D echocardiogram report June 14, 2024: The LV wall thickness is moderately increased (concentric). The left ventricular wall motion is normal. The qualitative LV ejection fraction is >70% (hyperdynamic). No LV outflow tract gradient was observed. The left atrium is mildly enlarged. The left ventricular diastolic function is mildly abnormal (grade I). Mild aortic valve sclerosis is present. Aortic stenosis is absent. Mild aortic valve regurgitation is present. Mild mitral regurgitation is present. The aortic root is moderately enlarged, 4.6 cm. The proximal ascending thoracic aorta is moderately enlarged, 4.6 cm. Compared to the report of the previous study dated 11/25/2022, mild aortic valve regurgitation is now noted. The aortic root and proximal ascending aorta diameters are relatively unchanged. ROS: All others negative other than those noted in the HPI. Patient Active Problem List Diagnosis Nocturia Impotence [...] of prostate cancer Aneurysm of aorta (HCC) Social History Tobacco Use Smoking status: Never Smokeless tobacco: Never Vaping Use Vaping status: Never Used Substance Use Topics Alcohol use: Yes Comment: rare-occ Drug use: No Review of patient's allergies indicates: Allergen Reactions Cat Dander Coumadin [Warfarin] Hives Dust Cough Mold Cough Other Allergy (See Comments) Grass - sneezing/sinus Pollen Cough Also grass Current Outpatient Medications Medication Sig Dispense Refill CENTRUM SILVER PO TABS daily citalopram 5 MG OR TABS Take by mouth at bedtime. Escitalopram Oxalate 10 MG Oral Tablet (Lexapro) Take 1 Tablet by mouth in the morning. 90 Tablet 2 amLODIPine Besylate 10 MG Oral Tablet (Norvasc) Take 1 Tablet by mouth in the morning. 90 Tablet 3 Azelastine HCl 0.1 % Nasal Solution (Astelin) Administer 1 [place] into nostril in the morning and 1 [place] before bedtime. 90 mL 3 LORATADINE 10 MG PO CAPS Take by mouth at bedtime. Melatonin 10 MG Oral Tablet Take 1 [...] taking differently: every morning.) 90 Tablet 3 Metoprolol Succinate ER 100 MG Oral Tablet Extended Release 24 Hour (toPROL XL) 1 tablet in the morning 1/2 in the evening 135 Tablet 1 Potassium Gluconate 595 (99 K) MG Oral Tablet Take by mouth at bedtime. Omeprazole 40 MG Oral Capsule Delayed Release (PriLOSEC) Take 1 Capsule by mouth in the morning. 90Capsule 1 Lisinopril 40 MG Oral Tablet Take 1 Tablet by mouth in the morning. 90 Tablet 3 Metoprolol Succinate ER 25 MG Oral Tablet Extended Release 24 Hour (toPROL XL) Take 1 Tablet by mouth at bedtime. Montelukast Sodium 10 MG Oral Tablet (Singulair) Take 1 Tablet by mouth in the morning. 30 Tablet 0 No current facility-administered medications for this visit. Lipid Panel Results: Results for orders placed or performed in visit on 05/14/24 LIPID PANEL WITH DIRECT LDL IF TG IS HIGH Result Value Ref Range Triglycerides 162 <=174 mg/dL Cholesterol 129 <200 mg/dL HDL Cholesterol 36 (L) >39 mg/dL Non-HDL Cholesterol 93 <=159 mg/dL Lab Results Component Value Date/Time TSH - [facility] 2.37 06/04/2024 08:35 AM TSH - [facility] 2.60 03/01/2024 12:48 PM CBC Results: Results for orders placed or performed in visit on 06/04/24 CBC Result Value Ref Range WBC 10.68 4.00 - 10.80 K/uL RBC 4.51 4.50 - 5.25 M/uL HGB 13.0 (L) 14.0 - 16.8 g/dL HCT 41.8 40.0 - 48.4 % MCV 92.7 82.0 - 99.5 fL MCH 28.8 27.0 - 34.0 pg MCHC 31.1 32.0 - 36.0 g/dL RDW 14.9 11.5 - 15.5 % PLT 292 140 - 400 K/uL MPV 11.0 6.6 - 11.1 fL nRBCs 0 <=0 /100 WBCs OBJECTIVE/PHYSICAL EXAMINATION: BP 96/62 (BP Site: Right Arm, BP Position: Sitting) | Pulse 112 | Resp 16 | Wt 105.6 kg (232 lb 12.8 oz) | BMI 34.36 kg/m | BSA 2.27 m General: NAD, AAO x3, well nourished. HEENT: Normocephalic. Atraumatic. Conjunctiva pink, no scleral icterus. No carotid bruits, the carotid upstrokes are brisk. No JVD. No HJR Heart: Irregular rhythm, tachycardia, S-1 and S-2 . No murmurs or rubs appreciated. PMI is not displaced. No RV heave. Lungs: Clear bilateral without rales , rhonchi, or wheeze. Abdomen: Normal bowel sounds. Soft. Nontender. No masses or organomegaly. No abdominal bruits. Extremities: No clubbing, cyanosis, or edema. Pulses: radial=2/4. Neuro: No focal deficits. ASSESSMENT: 1. Paroxysmal atrial fibrillation with rapid ventricular response, new onset -symptomatic, fatigue 2. Recent hospitalization due to sepsis related to dental infection after recent procedure. 3. Moderate aortic root and ascending aortic enlargement 4. Hypotension due to meds -h/o hypertension with titration of beta-ramiro during hospitalization and titration of both lisinopril and amlodipine over the past 12 months. 5. Remote history of TIA (memory loss) PLAN: I had a long discussion with the patient and his regarding the natural history, pathophysiology, and stroke risk associated with paroxysmal atrial fibrillation. Recommend titration of Toprol-XL to 150 mg daily to improve rate control and addition of oral anticoagulation with Eliquis. Patient agreeable. Currently hypotensive in the setting of titration of beta-ramiro therapy during hospitalization aswell as titration of other antihypertensive medications over the past 12 months. Discontinue amlodipine. Hold lisinopril in a.m. July 04, 2024 and continue beta-ramiro therapy. He will resume lisinopril on Friday July 05, 2024 if blood pressure improves. Encouraged oral hydration. Baselinelab testing as noted above. Discussed potential referral for external direct current cardioversion after 4 weeks of adequate anticoagulation. All questions answered to satisfaction with the patient and his . Close Cardiology follow-up in 1 week. I spent a total of 40-54 minutes (exact time 40 mins) on the date of service in preparation, delivery, and documentation of the care provided to Clovis Bradford excluding any time spent in the performance of separately billed services or time spent by another provider/QHP. [place] En[place] DO, [facility] Associate [facility]iology [facility] documented in this encounter Nursing Notes * Juani Lowry CMA - 07/03/2024 8:36 AM EST Examination Room: 13 Name: Clovis Bradford Date of : (1950). Reason for Visit: follow up Interim Hospitalization(s): [facility] ~2 months ago - s/p dental surgery that "broke into his sinuses" -- "eye and cheek bulged up" Problems/Concerns: denies Chest Pain/SOB: denies [facility] Discussed: Yes [facility] is a way you can talk to your provider online through e-mail. Would you like to sign up? I can activate it for you? ALREADY ACTIVE Patient was instructed to not get up on the exam table until directed and assisted by their provider; patient is to remain seated in the chair/ wheelchair/ exam table for fall prevention and safety reasons. Patient is aware to have assistance to step down off exam table with personnel. Patient voiced full comprehension of instructions. documented in this encounter Plan of Treatment Upcoming Encounters Date Type Department Care Team (Late st Contact Info) Description 07/10/2024 9:30 AM EST Office Visit Cardiology, [facility] [address] [place] [address] [place], DO [address] [place] [address] 09/02/2024 12:00 PM EST Office Visit General Internal Medicine [facility] [address] [facility] [place] [address] [place] Leary DO [address] [facility] [place] [address] 11/04/2024 10:20 AM EDT Office Visit Family Practice, [place] Ken [address] [place] [address] Osito Alfaro MD [address] [place] [id number] 11/11/2024 9:00 AM EDT Nurse Only Ancillary Department, Osmin Gaspar [address] [place] [address] [place], Nurse Annual Wellness [address] [facility] [place] [address] 05/21/2025 10:00 AM EDT Imaging Radiology [facility] [address] [place] [address] 05/28/2025 11:00 AM EDT Office Visit Urology Bette Guardado [address] [place] [address] Osmany White Jr., MD [address] [place] [address] Scheduled Orders Name Type Priority Associated Diagnoses Orde r Schedule EKG EKG Routine Aneurysm of ascending aorta without rupture (HCC) Ordered: 07/03/2024 Scheduled Procedures Name Priority Associated Diagnoses Date/Ti me ESOPHAGOGASTRODUODENOSCOPY ( EGD), FLEXIBLE, TRANSORAL, DIAGNOSTIC Recall Gastritis COLONOSCOPY FLEXIBLE PROXIMAL DIAGNOSTIC Recall History of colonic polyps Health Maintenance Due Date Last Done Comments Diabetic Eye Exam 1968 Diabetic Foot Exam 1966 COVID-19 Vaccine ( season) 2024 08/18/2021, 12/27/2020, 12/05/2020 CKD PHOS USE SMARTSET 76659 10/24/2024 10/25/2023 Adult Wellness Visit 11/06/2024 11/07/2023, [...] 024, 06/13/2023, 12/21/2022 CKD HGB USE SMARTSET 58110 07/03/202507/03, 07/03/2024, 06/04/2024, Additional history exists DTap/Tdap [...] this encounter Medical Devices Implanted Type Area Team Foreman Device Identifier Shelf Expiration Date Model / Serial / Lot Kit Accessory Ams 700 [id number] - [id number] Implanted:Qty : 1 on 03/17/2022 by Trevor Khanna MD at [place] [facility] N/A: Scrotum STRATUSCORE [id number] 01/19/2027 [id number] / / [id number] Rte, Snapcone, Cx.Lgx 0.5cm - [id number] Implanted:Qty : 1 on 03/17/2022 by Trevor Khanna MD at OR [facility] N/A: Penis Luxe Internacionale : UROLOGY [id number] 10/20/2026 [id number] / / [id number] Cx Precon Ms 21cm Ps 12cm - [id number] Implanted:Qty : 1 on 03/17/2022 by Trevor Khanna MD at OR [facility] N/A: Penis STRATUSCORE [id number] 08/26/2023 [id number] / / [id number] Resvr Conceal [id number] - [id number] Implanted:Qty : 1 on 03/17/2022 by Trevor Khanna MD at OR [facility] N/A: Pelvis STRATUSCORE [id number] 11/17/2023 [id number] / / [id number] documented as of this encounter Results * PT INR (07/03/2024 9:34 AM EST) Prothrombin Time 13.9 11.6 - 15.2 seconds 07/03/2024 10:20 AM EST [facility]10 INR 1.1 0.8 - 1.2 07/03/2024 10:20 AM EST [facility] 57[facility]10 Blood Venous blood specimen / Unknown Venipuncture / Unknown 07/03/2024 9:34 AM EST 07/03/2024 9:34 AM EST Narrative [facility]10 - 07/03/2024 10:20 AM EST Warfarin Therapy INR: 2.0-3.0 conventional anticoagulation INR: 2.5-3.5 high intensity anticoagulation [place] En[place] DO LAB BLOOD ORDERABLES Final Result [facility] [address] [place] [address] * (ABNORMAL) BASIC METABOLIC PANEL (07/03/2024 9:34 AM EST) Pathologist [facility] BUN 17 6 - 20 mg/dL 07/03/2024 10:42 AM EST [facility] 57-10 CREATININE 1.3(H) 0.6 - 1.2 mg/dL 07/03/2024 10:42 AM EST [facility] 57-10 EGFR 55(L) >=60 mL/min 07/03/2024 10:42 AM EST [facility] 57-10 Comment:eGFR is calculated b ased on the CKD-EPI 2020 equation. SODIUM 138 135 - 146 mmol/L 07/03/2024 10:42 AM EST [facility] 57-10 POTASSIUM 4.5 3.5 - 5.1 mmol/L 07/03/2024 10:42 AM EST [facility] [place] [facility] 57-10 CHLORIDE 102 98 - 107 mmol/L 07/03/2024 10:42 AM EST [facility] [place] [facility] 57-10 CO2 26 22 - 32 mmol/L 07/03/2024 10:42 AM EST [facility] [place] [facility] 57-10 ANION GAP 10 7 - 15 mmol/L 07/03/2024 10:42 AM EST [facility] [place] [facility] 57-10 GLUCOSE 164(H) 70 - 120 mg/dL 07/03/2024 10:42 AM EST [facility] [place] [facility] 57-10 CALCIUM 9.9 8.4 - 10.2 mg/dL 07/03/2024 10:42 AM EST [facility] [place] 57-10 Blood Venous blood specimen / Unknown Venipuncture / Unknown 07/03/2024 9:34 AM EST 07/03/2024 9:34 AM EST [place] En[place] DO LAB BLOOD ORDERABLES Final Result [facility] [place] 57-10 [address] [facility] [place] [address] documented in this encounter Visit Diagnoses Diagnosis PAF (paroxysmal atrial fibrillation) (HCC)- Primary Atrial fibrillation Aneurysm of ascending aorta without rupture (HCC) Hypotension due to drugs Other iatrogenic hypotension documented in this encounter Advance Directives * Full Code (Latest Code Status on File) Date Activated Date Inactivated Comments 03/17/2022 10:18 AM 03/18/2022 2:38 PM Question Answer Comments Discussion of Advance Directives occurred with: Not Discussed Care Teams Roller Bearing Inspector Relationship Specialty Start Date End Date Osito Alfaro MD [address] [place] [address] PCP - General Family Medicine 09/01/21 documented as of this encounter
--- OUTSIDE RECORDS SUMMARY | 2024-08-26 07:36 | External Medical Summary | Summary of Care ---
Author Name Unknown Organization [facility] Address [address] [facility] [address] [place] [address] Phone [phone] Care Team Providers Care Ecological Technical Officer Name Role Phone Osito Alfaro MD Primary Care Provider [phone] Reason for Visit * Reason Onset Date Comments Test Results 07/05/2024 Encounter Details Date Type Department Care Team (Late st Contact Info) Description 07/05/2024 Telephone [facility], [address] [place] [address] [place] En[place] O, DO [address] [place] [address] Test Results Allergies Active Allergy Reactions Criticality Noted Date Comments Cat Dander 09/01/2016 Warfarin Hives 09/01/2016 Dust Cough 03/16/2009 Mold Cough 03/16/2009 Other Allergy (See Comments) 04/04/2022 Grass - sneezing/sinus Pollen Cough 03/16/2009 Also grass documented as of this encounter (statuses as of 07/05/2024) Medications LORATADINE 10 MG PO CAPS Take by mouth at bedtime. Active CENTRUM SILVER PO TABS daily Active Melatonin 10 MG Oral Tablet Take 1 Tablet by mouth at bedtime. 2 Active metFORMIN HCl ER 500 MG Oral Tablet Extended Release 24 Hour (Glucophage XR)Indications: DM type 2, goal HbA1c < 7.5% ([facility]) Take 2 tabs with breakfast daily. First 2 weeks- take 1 tab daily 180 Tablet 3 3 Active Rosuvastatin Calcium 10 MG Oral Tablet (Crestor)Indica tions:Dyslipide kevin, goal LDL below 70 TAKE 1 TABLET BY MOUTH ONCE DAILY IN THE EVENING 90 Tablet 3 4 Active Additional Information Patient taking differently: [id number], Reported on 07/03/2024 citalopram 5 MG OR [...] Nasal Solution (Astelin)Indica tions:Chronic rhinitis Administer 1 [place] into nostril in the morning and 1 [place] before bedtime. 90 mL 3 4 Active [...] as of this encounter (statuses as of 07/05/2024) Active Problems Problem Noted Date Diagnosed Date [...] as of this encounter (statuses as of 07/05/2024) Resolved Problems Problem Noted Date Diagnosed Date [...] as of this encounter (statuses as of 07/05/2024) Immunizations Name Administration Dates Next Due COVID-19 mRNA, LNP-s, No Pre serve, 2-Dose Series ([place]) 08/18/2021 Pneumococcal Conjugate Vacc, 13 Valent (Prevnar) [...] Assessment Author No 03/17/2022 11:42 AM Magda eMndoza RN * Do you have serious difficulty [...] encounter Miscellaneous Notes * Telephone Encounter - Yolanda Najera LPN - 07/05/2024 9:18 AM EST Patient advised of result note via [employer] Message. Yolanda Najera LPN * Telephone Encounter - Yolanda Najera LPN - 07/05/2024 9:16 AM EST ----- Message from [place] En[place] DO sent at 07/03/2024 4:16 PM EST ----- Stable BMP, and CBC. Normal PT INR Continue treatment plan as outlined during today's office visit. Follow up as scheduled. documented in this encounter Plan of Treatment Upcoming Encounters Date Type Department Care Team (Late st Contact Info) Description 07/10/2024 9:30 AM EST Office Visit Cardiology, [facility] [address] [place] [address] [place] En[place] DO [address] [facility] [place] [address] 09/02/2024 12:00 PM EST Office Visit General Internal Medicine [facility] [address] [facility] [address] [place] [facility] [address] [facility] [address] 11/04/2024 10:20 AM EDT Office Visit Family Practice, [place] [address] [facility] [place] [address] Osito Alfaro MD [address] [facility] [place] [address] 11/11/2024 9:00 AM EDT Nurse Only Ancillary Department, Osmin Gaspar [address] [place] [address] Osmin, Nurse Annual Wellness [address] [place] [address] [place] [address] 05/21/2025 10:00 AM EDT Imaging Radiology [facility] [address] [place] [address] 05/28/2025 11:00 AM EDT Office Visit Urology Raegan Bette Ken [address] [place] [address] Osmany White Jr., MD [address] [place] [phone] Scheduled Procedures Name Priority Associated Diagnoses Date/Ti me ESOPHAGOGASTRODUODENOSCOPY ( EGD), FLEXIBLE, TRANSORAL, DIAGNOSTIC Recall Gastritis COLONOSCOPY FLEXIBLE PROXIMAL DIAGNOSTIC Recall History of colonic polyps Health Maintenance Due Date Last Done Comments Diabetic Eye Exam 1966 Diabetic Foot Exam 1966 COVID-19 Vaccine ( season) 2024 08/18/2021, 12/27/2020, 12/05/2020 CKD PHOS USE SMARTSET 22350 10/24/2024 10/25/2023 Adult Wellness Visit 11/06/2024 11/07/2023, [...] 024, 06/13/2023, 12/21/2022 CKD HGB USE SMARTSET 85674 07/03/202507/03, 07/03/2024, 06/04/2024, Additional history exists DTap/Tdap [...] this encounter Medical Devices Implanted Type Area Co Founder And Cto Device Identifier Shelf Expiration Date Model / Serial / Lot Kit Accessory Ams 700 [id number] - [id number] Implanted:Qty : 1 on 03/17/2022 by Trevor Khanna [place] [facility] [place]/A: Scrotum Zollo [id number] 01/19/2027 [id number] / / [id number] Rte, Snapcone, Cx.Lgx 0.5cm - [id number] Implanted:Qty : 1 on 03/17/2022 by Trevor Khanna MD [place] [facility] N/A: Penis Game Blisters SCIENTIFIC : UROLOGY [id number] 10/20/2026 [id number] / / [id number] Cx Precon Ms 21cm Ps 12cm - [id number] Implanted:Qty : 1 on 03/17/2022 by Trevor Khanna MD at [place] [facility] N/A: Penis Zollo [id number] 08/26/2023 [id number] / / [id number] Resvr Conceal [id number] - [id number] Implanted:Qty : 1 on 03/17/2022 by Trevor Khanna MD [place] [facility] N/A: Pelvis Zollo [id number] 11/17/2023 [id number] / / [id number] documented as of this encounter Advance Directives * Full Code (Latest Code Status on File) Date Activated Date Inactivated Comments 03/17/2022 10:18 AM 03/18/2022 2:38 PM Question Answer Comments Discussion of Advance Directives occurred with: Not Discussed Care Teams Ecological Technical Officer Relationship Specialty Start Date End Date Osito Alfaro MD [address] [facility] [place] [id number] PCP - General Family Medicine 09/01/21 documented as of this encounter
--- OUTSIDE RECORDS SUMMARY | 2024-08-26 07:36 | External Medical Summary | Summary of Care ---
Author Name Unknown Organization [facility] Address [address] [place] [address] Phone [phone] Care Team Providers Care Political Anthropologist Name Role Phone Osito Alfaro MD Primary Care Provider [phone] Reason for Visit * Reason Onset Date Comments Health Maintenance 07/02/2024 Encounter Details Date Type Department Care Team (Late st Contact Info) Description 07/02/2024 Telephone [facility] Osmin Ken [address] [place] [phone] Osito Alfaro MD [address] [place] [phone] Health Maintenance Allergies Active Allergy Reactions Criticality Noted Date Comments Cat Dander 09/01/2016 Warfarin Hives 09/01/2016 Dust Cough 03/16/2009 Mold Cough 03/16/2009 Other Allergy (See Comments) 04/04/2022 Grass - sneezing/sinus Pollen Cough 03/16/2009 Also grass documented as of this encounter (statuses as of 07/02/2024) Medications LORATADINE 10 MG PO CAPS Take [...] 4 Active Additional Information Patient taking differently: [id number], Reported on 03/18/2024 Metoprolol Succinate ER 100 MG Oral Tablet Extended Release 24 Hour (toPROL XL)Indications:A neurysm of ascending aorta without rupture (HCC),HTN, goal below 140/90 1 tablet in the morning 1/2 in the evening 135 Tablet 1 4 Active citalopram 5 MG OR TABS Take [...] the morning. 90 Tablet 2 4 Active amLODIPine Besylate 10 MG Oral Tablet (Norvasc)Indicat ions:HTN, goal below 140/90 Take 1 Tablet by mouth in the morning. 90 Tablet 3 4 Active Azelastine HCl 0.1 % Nasal Solution (Astelin)Indicat ions:Chronic rhinitis Administer 1 [place] into nostril in the morning and 1 [place] before bedtime. 90 mL 3 4 Active Lisinopril 40 MG Oral TabletIndication s:HTN, goal below 140/90 Take 1 Tablet by mouth in the morning. 90 Tablet 3 4 Active Amoxicillin-Pot Clavulanate 875-125 MG Oral Tablet (Augmentin) Take 1 Tablet by mouth in the morning and 1 Tablet at noon and 1 Tablet before bedtime. 4 Active Clindamycin HCl 300 MG Oral Capsule Take 1 Capsule by mouth every 6 hours. 4 Active Metoprolol Succinate ER 25 MG Oral Tablet Extended Release 24 Hour (toPROL XL) Take 1 Tablet by mouth at bedtime. 4 Active Montelukast Sodium 10 MG Oral Tablet (Singulair)Indic ations:Post-nasa l drip Take 1 Tablet by mouth in the morning. 30 Tablet 4 Active documented as of this encounter (statuses as of 07/02/2024) Active Problems Problem Noted Date Diagnosed Date [...] as of this encounter (statuses as of 07/02/2024) Resolved Problems Problem Noted Date Diagnosed Date Resolved Date Aneurysm of aorta 04/30/2024 04/30/2024 Prediabetes 01/16/2023 02/28/2024 Overview: Per Prediabetes protocol Prostate carcinoma 06/03/2020 4 Cancer Staging:Clinical stage from 06/03/2020:Stage IIC(cT1c, cN0, cM0, PSA: 4.6, Grade Group: 3) - Signed by Reynold Antoine MD on 06/03/2020 Overview (04/17/2024): 05/23/23 Urology note He has a history of prostate cancer post ERBT 08/2020 with hormone therapy. documented as of this encounter (statuses as of 07/02/2024) Immunizations Name Administration Dates Next Due COVID-19 [...] Author No 03/17/2022 11:42 AM EDT Magda Scott, RN documented as of this encounter Mental Status * Because of a physical, mental, or emotional condition, do you have serious difficulty concentrating, remembering, or making decisions? (5 years old or older) Answer Entry Date Author No 03/17/2022 11:42 AM EDT Magda Scott RN documented in this encounter Miscellaneous Notes * Telephone Encounter - Sayda Berry LPN - 07/02/2024 10:58 AM EST Care Gaps Comprehensive Care Outreach Last Office/Telemedicine Visit: Visit date not found (in office), Visit date not found (telemedicine) Next Office Visit: 11/04/2024 Hemoglobin AIC Results: Lab Results Component Value Date/Time HEMOGLOBIN A1C - [facility] 6.8 (H) 06/04/2024 08:35 AM HEMOGLOBIN A1C - [facility] 6.7 (H) 05/14/2024 08:25 AM HEMOGLOBIN A1C - [facility] 6.4 (H) 10/25/2023 10:51 AM BP Readings from Last 1 Encounters: 06/18/24 118/82 Reviewed Health Maintenance below: Health Maintenance Topic Date Due Diabetic Eye Exam Never done Diabetic Foot Exam Never done COVID-19 Vaccine ( season) 2024 Hepatitis C Screening 04/30/2025 (Originally 1968) Zoster Vaccines (2 of 2) 04/30/2025 (Originally 12/20/2023) CKD PHOS USE SMARTSET 83461 10/24/2024 eye Care Gap Outreach Action Taken: [employer] message sent documented in this encounter Plan of Treatment Upcoming Encounters Date Type Department Care Team (Late st Contact Info) Description 07/03/2024 8:30 AM EST Office Visit Cardiology, [facility] [address] [place] [address] [place] En[place] O, DO [address] [place] [address] 09/02/2024 12:00 PM EST Office Visit General Internal Medicine [facility] [address] [place] [address] Wesley Leary, [address] [place], [place] [address] 11/04/2024 10:20 AM EDT [facility] [place] [facility] [address] [facility] [address] Osito Alfaro MD [address] [facility] [place] [phone] 11/11/2024 9:00 AM EDT Nurse Only Ancillary Department, [place] [address] [facility] [address] [place], Nurse Annual Wellness [address] [place] [address] 05/21/2025 10:00 AM EDT Imaging Radiology [facility] [address] [facility] [place] [address] 05/28/2025 11:00 AM EDT Office Visit Urology Bette Guardado [address] [place] [phone] Osmany White Jr., MD [address] [place] [phone] Scheduled Procedures Name Priority Associated Diagnoses Date/Ti me ESOPHAGOGASTRODUODENOSCOPY ( EGD), FLEXIBLE, TRANSORAL, DIAGNOSTIC Recall Gastritis COLONOSCOPY FLEXIBLE PROXIMAL DIAGNOSTIC Recall History of colonic polyps Health Maintenance Due Date Last Done Comments Diabetic Eye Exam 1968 Diabetic Foot Exam 1968 COVID-19 Vaccine ( season) 2024 08/18/2021, 12/27/2020, 12/05/2020 CKD PHOS USE SMARTSET 99471 10/24/2024 10/25/2023 Adult Wellness Visit 11/06/2024 11/07/2023, 11/01/19 Depression Monitoring 11/06/2024 11/07/2023 GFR 12/03/2024 06/04/2024, 03/2024, 10/25/2023, Additional history exists HbA1c 12/03/2024 06/04/2024, 03/2024, 10/25/2023, Additional history exists Hepatitis C Screening 04/30/2025 Postpo katiana from 1966 (Patient Declined After Education) Zoster Vaccines (2 of 2) 04/30/2025 10/25/2023 Pos tponed from 12/20/2023 (Patient Declined After Education) Albumin/Creatinine Ratio 05/14/2025 024, 06/13/2023, 12/21/2022 CKD HGB USE SMARTSET 59467 06/04/202506/04, 06/04/2024, 10/25/2023, Additional history exists DTap/Tdap Vaccines (3 - [...] this encounter Medical Devices Implanted Type Area Copy Center Specialist Device Identifier Shelf Expiration Date Model / Serial / Lot Kit Accessory Ams 700 [id number] - [id number] Implanted:Qty : 1 on 03/17/2022 by Trevor Khanna MD at [place] [facility] N/A: Scrotum [employer] [id number] 01/19/2027 [id number] / / [id number] Rte, Snapcone, Cx.Lgx 0.5cm - [id number] Implanted:Qty : 1 on 03/17/2022 by Trevor Khanna MD at OR [facility] N/A: Penis [employer] : UROLOGY [id number] 10/20/2026 [id number] / / [id number] Cx Precon Ms 21cm Ps 12cm - [id number] Implanted:Qty : 1 on 03/17/2022 by Trevor Khanna MD at OR [facility] N/A: Penis [employer] [id number] 08/26/2023 [id number] / / [id number] Resvr Conceal 095125-51 - [id number] Implanted:Qty : 1 on 03/17/2022 by Trevor Khanna MD at OR [facility] N/A: Pelvis [employer] [id number] 11/17/2023 [id number] / / [id number] documented as of this encounter Advance Directives * Full Code (Latest Code Status on File) Date Activated Date Inactivated Comments 03/17/2022 10:18 AM 03/18/2022 2:38 PM Question Answer Comments Discussion of Advance Directives occurred with: Not Discussed Care Teams Political Anthropologist Relationship Specialty Start Date End Date Osito Alfaro MD [address] [place], [place] [phone] PCP - General Family Medicine 09/01/21 documented as of this encounter
--- OUTSIDE RECORDS SUMMARY | 2024-08-26 07:36 | External Medical Summary | Summary of Care ---
Author Name Unknown Organization [facility] Address [address] [place] [address] Phone [phone] Care Team Providers Care Loan Analyst Name Role Phone Onur Alfaro MD Primary Care Provider [phone] Reason for Referral * Evaluate & Treat - Unlimited Visits (Within 30 days (routine)) - Authorized Specialty Diagnoses / Procedures Referred By Contadriana t Referred To Contact Ophthalmology Diagnoses Vision disturbance Onur Alfaro MD [address] [place] [address] Phone: tel: fax: Referral ID Status Reason Start Date Expiration Date Visits Requested Visits Authorized [id number] Authorized Specialty Services Required 4 [phone] Question Answer Referral Priority Within 30 days (routine) Where should this appointment be scheduled? [facility] Referring for: Optometry Conditions Optometry Conditions Diabetic Eye Exam without Retinopathy Comments Diabetic Eye exam and decreased vision Reason for Visit * Reason Onset Date Comments Health Maintenance 07/02/2024 Encounter Details Date Type Department Care Team (Late st Contact Info) Description 07/02/2024 Telephone [facility] Crista, Osmin Ken [address] [place] [address] Onur Alfaro MD [address] [place] [address] Health Maintenance Allergies Active Allergy Reactions Criticality Noted Date Comments Cat Dander 09/01/2016 Warfarin Hives 09/01/2016 Dust Cough 03/16/2009 Mold Cough 03/16/2009 Other Allergy (See Comments) 04/04/2022 Grass - sneezing/sinus Pollen Cough 03/16/2009 Also grass documented as of this encounter (statuses as of 07/08/2024) Medications LORATADINE 10 MG PO CAPS Take [...] 4 Active Additional Information Patient taking differently: [id number], Reported on 07/03/2024 citalopram 5 MG OR [...] Nasal Solution (Astelin)Indica tions:Chronic rhinitis Administer 1 [place] into nostril in the morning and 1 [place] before bedtime. 90 mL 3 4 Active [...] as of this encounter (statuses as of 07/08/2024) Active Problems Problem Noted Date Diagnosed Date [...] as of this encounter (statuses as of 07/08/2024) Resolved Problems Problem Noted Date Diagnosed Date [...] as of this encounter (statuses as of 07/08/2024) Immunizations Name Administration Dates Next Due COVID-19 mRNA, LNP-s, No Pre serve, 2-Dose Series ([employer]) 08/18/2021 Pneumococcal Conjugate Vacc, 13 Valent (Prevnar) [...] Telephone Encounter - Ewa Piña OSA - 07/08/2024 5:00 PM EST LMOM for patient to call [phone] (per scheduling tree) to schedule. 07/08/2024 * Addendum Note - Onur Alfaro MD - 07/02/2024 5:07 PM ESTAddended by: ONUR ALFARO on: 07/02/2024 05:07 PM Modules accepted: Orders * Addendum Note - Cristobal Ventura LPN - 07/02/2024 2:03 PM ESTAddended by: CRISTOBAL VENTURA on: 07/02/2024 02:03 PM Modules accepted: Orders * Telephone Encounter - Cristobal Ventura LPN - 07/02/2024 2:01 PM EST Spoke to patient to schedule a diabetic eye exam. He is having some trouble seeing as well. Would like to get in to [facility]. Referral pended. Please review and sign. * Telephone Encounter - Cristobal Ventura LPN - 07/02/2024 10:58 AM EST Care [...] 04/30/2025 (Originally 12/20/2023) CKD PHOS USE SMARTSET 22012 10/24/2024 eye Care Gap Outreach Action Taken: [employer] message sent documented in this encounter Plan of Treatment Upcoming Encounters Date Type Department Care Team (Late st Contact Info) Description 07/10/2024 9:30 AM EST Office Visit Cardiology, [facility] [address] [place] [address] [place] Ennis, DO [address] [address] 09/02/2024 12:00 PM EST Office Visit General Internal Medicine [facility] [place] [address] [facility] [place] [address] Wesley Leary DO [address] [facility] [place] [address] 11/04/2024 10:20 AM EDT [facility] [place] [facility] [address] [facility] [place] [address] Onur Alfaro MD [address] [facility] [address] 11/11/2024 9:00 AM EDT Nurse Only Ancillary Department, [place] [address] [facility] [place] [address] [place], Nurse Annual Wellness [address] [place], [place] [phone] 05/21/2025 10:00 AM EDT Imaging Radiology [facility] [address] [place] [address] 05/28/2025 11:00 AM EDT Office Visit Urology Bette Guardado [address] [place] [address] Osmany White Jr., MD [address] [place] [address] Scheduled Procedures Name Priority Associated Diagnoses Date/Ti me ESOPHAGOGASTRODUODENOSCOPY ( EGD), FLEXIBLE, TRANSORAL, DIAGNOSTIC Recall Gastritis COLONOSCOPY FLEXIBLE PROXIMAL DIAGNOSTIC Recall History of colonic polyps Scheduled Referrals Name Type Priority Associated Diagnoses Orde r Schedule ADULT/PEDS OPHTHALMOLOGY/OPTOM ETRY REFERRAL OP Referral Within 30 days (routine) Vision disturbance Ordered: 07/02/2024 Health Maintenance Due Date Last Done Comments Diabetic Eye Exam 1968 Diabetic Foot Exam 1968 COVID-19 Vaccine ( season) 2024 08/18/2021, 12/27/2020, 12/05/2020 CKD PHOS USE SMARTSET 06808 10/24/2024 10/25/2023 Adult Wellness Visit 11/06/2024 11/07/2023, [...] 024, 06/13/2023, 12/21/2022 CKD HGB USE SMARTSET 24354 07/03/202507/03, 07/03/2024, 06/04/2024, Additional history exists DTap/Tdap [...] this encounter Medical Devices Implanted Type Area Wharf Tender Head Device Identifier Shelf Expiration Date Model / Serial / Lot Kit Accessory Ams 700 [id number] - [id number] Implanted:Qty : 1 on 03/17/2022 by Trevor Khanna MD at OR [facility] N/A: Scrotum [employer] [id number] 01/19/2027 [id number] / / [id number] Rte, Snapcone, Cx.Lgx 0.5cm - [id number] Implanted:Qty : 1 on 03/17/2022 by Trevor Khanna MD at OR [facility] N/A: Penis [employer] : UROLOGY [id number] 10/20/2026 [id number] / / [id number] Cx Precon Ms 21cm Ps 12cm - [id number] Implanted:Qty : 1 on 03/17/2022 by Trevor Khanna MD at OR [facility] N/A: Penis [employer] [id number] 08/26/2023 [id number] / / [id number] Resvr Conceal [id number] - [id number] Implanted:Qty : 1 on 03/17/2022 by Trevor Khanna MD at OR [facility] N/A: Pelvis Oc[employer] [id number] 11/17/2023 [id number] / / [id number] documented as of this encounter Visit Diagnoses Diagnosis Type 2 diabetes mellitus with stage 3a chronic kidney disease, without long-term current use of insulin (HCC)- Primary Vision disturbance Unspecified visual disturbance documented in this encounter Advance Directives * Full Code (Latest Code Status on File) Date Activated Date Inactivated Comments 03/17/2022 10:18 AM 03/18/2022 2:38 PM Question Answer Comments Discussion of Advance Directives occurred with: Not Discussed Care Teams Loan Analyst Relationship Specialty Start Date End Date Onur Alfaro MD [address] [facility] [place] [address] PCP - General Family Medicine 09/01/21 documented as of this encounter
--- OUTSIDE RECORDS SUMMARY | 2024-08-26 07:36 | External Medical Summary | Summary of Care ---
Author Name Unknown Organization [facility] Address [address] [place] [address] Phone [phone] Care Team Providers Care Aerologist Name Role Phone Onur Alfaro MD Primary Care Provider [phone] Reason for Referral * Evaluate & Treat - Unlimited Visits (Within 30 days (routine)) - Authorized Specialty Diagnoses / Procedures Referred By Contadriana t Referred To Contact Ophthalmology Diagnoses Vision disturbance Onur Alfaro MD [address] [place] [address] Phone: tel: fax: Referral ID Status Reason Start Date Expiration Date Visits Requested Visits Authorized [id number] Authorized Specialty Services Required 4 [phone] [...] (Late st Contact Info) Description 07/02/2024 Telephone [facility] Crista, Osmin Ken [address] [place] [address] Onur Alfaro MD [address] [place] [address] Health Maintenance Allergies Active Allergy Reactions Criticality [...] 4 Active Additional Information Patient taking differently: [id number], Reported on 03/18/2024 Metoprolol Succinate ER 100 [...] Nasal Solution (Astelin)Indicat ions:Chronic rhinitis Administer 1 [place] into nostril in the morning and 1 [place] before bedtime. 90 mL 3 4 Active [...] 1 Capsule by mouth every 6 hours. Active Metoprolol Succinate ER 25 MG Oral Tablet Extended Release 24 Hour (toPROL XL) Take 1 Tablet by mouth at bedtime. 4 Active Montelukast Sodium 10 MG Oral Tablet (Singulair)Indic ations:Post-nasa l drip Take 1 Tablet by mouth in the morning. 30 Tablet Active documented as of this encounter (statuses [...] 03/17/2022 11:42 AM EDT Magda Scott RN * Do you have serious difficulty walking or climbing stairs? (5 years old or older) Answer Date of Assessment Author No 03/17/2022 11:42 AM Magda Mendoza RN * Do you have difficulty dressing or bathing? (5 years old or older) Answer Date of Assessment Author No 03/17/2022 11:42 AM EDT Magda Scott RN * Because of a physical, mental, [...] documented in this encounter Miscellaneous Notes * Addendum Note - Onur Alfaro MD [...] well. Would like to get in to [facility]. Referral pended. Please review and sign. [...] 04/30/2025 (Originally 12/20/2023) CKD PHOS USE SMARTSET 08785 10/24/2024 eye Care Gap Outreach Action Taken: [employer] message sent documented in this encounter Plan of Treatment Upcoming Encounters Date Type Department Care Team (Late st Contact Info) Description 07/03/2024 8:30 AM EST Office [facility], [facility] [place] [address] [place] Ennis, DO [address] [place] [address] 09/02/2024 12:00 PM EST Office Visit General Internal Medicine [place] [address] [place] [address] Wesley Leary DO [address] [place] [address] 11/04/2024 10:20 AM EDT Office Visit Family Practice, [place] [address] [place] [address] Onur Alfaro MD [address] [place] [address] 11/11/2024 9:00 AM EDT Nurse Only Ancillary Department, [place] [address] [place] [address] [place], Nurse Annual Wellness [address] [facility] [address] 05/21/2025 10:00 AM EDT Imaging Radiology [facility] [address] [place] [address] 05/28/2025 11:00 AM EDT Office Visit Urology Bette Guardado [address] [place] [address] Osmany White Jr., MD [address] [place] [address] Scheduled Procedures Name Priority Associated Diagnoses Date/Ti [...] 08/18/2021, 12/27/2020, 12/05/2020 CKD PHOS USE SMARTSET 92912 10/24/2024 10/25/2023 Adult Wellness Visit 11/06/2024 11/07/2023, [...] 024, 06/13/2023, 12/21/2022 CKD HGB USE SMARTSET 79325 06/04/202506/04, 06/04/2024, 10/25/2023, Additional history exists DTap/Tdap [...] encounter Medical Devices Implanted Type Area Manager Surgery Device Identifier Shelf Expiration Date Model / Serial / Lot Kit Accessory Ams 700 [id number] - [id number] Implanted:Qty : 1 on 03/17/2022 by [place] Khanna MD [place] [facility] [place]A: Scrot [employer] [id number] 01/19/2027 [id number] / / [id number] Rte, Snapcone, Cx.Lgx 0.5cm - [id number] Implanted:Qty : 1 on 03/17/2022 by Trevor Khanna MD [place] [facility] [place]/A: Penis [employer] : UROLOGY [id number] 10/20/2026 [id number] / / [id number] Cx Precon Ms 21cm Ps 12cm - [id number] Implanted:Qty : 1 on 03/17/2022 by Trevor Khanna MD [place] [facility] N/A: Penis [employer] [id number] 08/26/2023 [id number] / / [id number] Resvr Conceal [id number] - [id number] Implanted:Qty : 1 on 03/17/2022 by Trevor Khanna MD at [place] [facility] N/A: Pelvis [employer] [id number] 11/17/2023 [id number] / / [id number] documented as of this encounter Visit Diagnoses [...] Directives occurred with: Not Discussed Care Teams Aerologist Relationship Specialty Start Date End Date Onur Alfaro MD [address] [place] [address] PCP - General Family Medicine 09/01/21 documented as of this encounter
--- OUTSIDE RECORDS SUMMARY | 2024-08-26 07:36 | External Medical Summary | Summary of Care ---
Author Name Unknown Organization [facility] Address [address] [place] [address] Phone [phone] Care Team Providers Care Women'S Studies Lecturer Name Role Phone Osito Alfaro MD Primary Care Provider [phone] Reason for Visit * Reason Onset Date Comments Health Maintenance 07/02/2024 Encounter Details Date Type Department Care Team (Late st Contact Info) Description 07/02/2024 Telephone [facility] Osmin Ken [address] [place] [phone] Osito Alfaro MD [address] [place] [phone] Health Maintenance Allergies Active Allergy Reactions Criticality [...] 4 Active Additional Information Patient taking differently: [id number], Reported on 03/18/2024 Metoprolol Succinate ER 100 [...] Nasal Solution (Astelin)Indicat ions:Chronic rhinitis Administer 1 Hank[place] into nostril in the morning and 1 Hank[place] before bedtime. 90 mL 3 4 Active [...] encounter Miscellaneous Notes * Addendum Note - Cristobal Ventura LPN - 07/02/2024 2:03 PM ESTAddended by: CRISTOBAL VENTURA on: 07/02/2024 02:03 PM Modules accepted: Orders * Telephone Encounter - Cristobal Ventura LPN - 07/02/2024 2:01 PM EST Spoke to patient to schedule a diabetic eye exam. He is having some trouble seeing as well. Would like to get in to [facility]. Referral pended. Please review and sign. [...] 04/30/2025 (Originally 12/20/2023) CKD PHOS USE SMARTSET 97212 10/24/2024 eye Care Gap Outreach Action Taken: [employer] message sent documented in this encounter Plan of Treatment Upcoming Encounters Date Type Department Care Team (Late st Contact Info) Description 07/03/2024 8:30 AM EST Office Visit Cardiology, [facility] [address] [place] [address] [place] Ennis, DO 132 [facility] [place] [address] 09/02/2024 12:00 PM EST Office Visit General Internal Medicine [facility] [address] [facility] [place] [address] Wesley Leary, DO [address] [facility] [place] [address] 11/04/2024 10:20 AM EDT [facility] [address] [facility] [place] [address] Osito Alfaro MD 226 [facility] [place] [address] 11/11/2024 9:00 AM EDT Nurse Only [facility] [address] [facility] [place] [phone] [place], Nurse Annual Wellness [address] [place] [facility] [place] [address] 05/21/2025 10:00 AM EDT Imaging Radiology [facility] [address] [place] [address] 05/28/2025 11:00 AM EDT Office Visit Urology Bette Guardado [address] [place] [address] Osmany White Jr., MD [address] [place] [phone] Scheduled Procedures Name Priority Associated Diagnoses Date/Ti me ESOPHAGOGASTRODUODENOSCOPY ( EGD), FLEXIBLE, TRANSORAL, DIAGNOSTIC Recall Gastritis COLONOSCOPY FLEXIBLE PROXIMAL DIAGNOSTIC Recall History of colonic polyps Health Maintenance Due Date Last Done Comments Diabetic Eye Exam 1968 Diabetic Foot Exam 1966 COVID-19 Vaccine ( season) 2024 08/18/2021, 12/27/2020, 12/05/2020 CKD PHOS USE SMARTSET 94790 10/24/2024 10/25/2023 Adult Wellness Visit 11/06/2024 11/07/2023, 11/01/19 Depression Monitoring 11/06/2024 11/07/2023 GFR 12/03/2024 06/04/2024, 10/0 03/2024, 10/25/2023, Additional history exists HbA1c 12/03/2024 06/04/2024, 10/0 03/2024, 10/25/2023, Additional history exists Hepatitis C Screening 04/30/2025 Postpo katiana from 1966 (Patient Declined After Education) Zoster Vaccines (2 of 2) 04/30/2025 10/25/2023 Pos tponed from 12/20/2023 (Patient Declined After Education) Albumin/Creatinine Ratio 05/14/2025 024, 06/13/2023, 12/21/2022 CKD HGB USE SMARTSET 97274 06/04/202506/04, 06/04/2024, 10/25/2023, Additional history exists DTap/Tdap [...] this encounter Medical Devices Implanted Type Area Airplane And Engine Inspector Device Identifier Shelf Expiration Date Model / Serial / Lot Kit Accessory Ams 700 [id number] - [id number] Implanted:Qty : 1 on 03/17/2022 by Trevor Khanna MD at [place] [facility] N/A: Scrotum Warranty Life [id number] 01/19/2027 [id number] / / [id number] Rte, Snapcone, Cx.Lgx 0.5cm - [id number] Implanted:Qty : 1 on 03/17/2022 by Trevor Khanna MD at OR [facility] N/A: Penis Cerephex SCIENTIFIC : UROLOGY [id number] 10/20/2026 [id number] / / [id number] Cx Precon Ms 21cm Ps 12cm - [id number] Implanted:Qty : 1 on 03/17/2022 by Trevor Khanna MD at OR [facility] N/A: Penis Warranty Life [id number] 08/26/2023 [id number] / / [id number] Resvr Conceal [id number] - [id number] Implanted:Qty : 1 on 03/17/2022 by Trevor Khanna MD at OR [facility] N/A: Pelvis Warranty Life [id number] 11/17/2023 192101-05 / / [id number] documented as of this encounter Advance Directives * Full Code (Latest Code Status on File) Date Activated Date Inactivated Comments 03/17/2022 10:18 AM 03/18/2022 2:38 PM Question Answer Comments Discussion of Advance Directives occurred with: Not Discussed Care Teams Women'S Studies Lecturer Relationship Specialty Start Date End Date Osito Alfaro MD [address] [place] [facility] [place] [address] PCP - General Family Medicine 09/01/21 documented as of this encounter
--- OUTSIDE RECORDS SUMMARY | 2024-08-26 07:36 | External Medical Summary ---
Author Name Unknown Address Unknown Organization [facility] [address] - [address] [place] [address] Laboratory Report Ordering Provider Test Date Status ALESSIO BRITO 07/03/2024 09:34:08 Final Observation Date Value Abnormality Reference (Units ) Status SYNC LEUKOCYTES IN BLOOD BY AUTOMATED COUNT 07/03/2024 09:34:08 7.68 4.00-10.80 (K/uL) Final Segs 07/03/2024 09:34:08 62.5 40.0-75.0 (%) Final Lymphs % 07/03/2024 09:34:08 22.1 18.0-42.0 (%) Final Monos 07/03/2024 09:34:08 11.7 Above high normal 1.0-11.0 (%) Final Eosinophils 07/03/2024 09:34:08 3.4 0.0-6.0 (%) Final Basos 07/03/2024 09:34:08 0.3 0.0-2.0 (%) Final Absolute Segs 07/03/2024 09:34:08 4.80 1.80-7.70 (K/uL) Final Lymphs, absolute 07/03/2024 09:34:08 1.70 1.00-4.80 (K/ul) Final Monos, Abs 07/03/2024 09:34:08 0.90 0.00-1.10 (K/uL) Final Eos, Abs 07/03/2024 09:34:08 0.26 0.00-0.70 (K/uL) Final Basos, Abs 07/03/2024 09:34:08 0.02 0.00-0.20 (K/uL) Final Performing Location [facility] - [address] [place] [address]
--- OUTSIDE RECORDS SUMMARY | 2024-08-26 07:36 | External Medical Summary | Summary of Care ---
Author Name Unknown Organization [facility] Address [address] [facility] [place] [address] Phone [phone] Care Team Providers Care Director Part Name Role Phone Osito Alfaro MD Primary Care Provider [phone] Reason for Visit * Reason Onset Date Comments Diabetes 07/03/2024 Encounter Details Date Type Department Care Team (Late st Contact Info) Description 07/03/2024 8:00 AM EST Scheduled Telephone Olaf Benton [address] [place] [address] Keira Vickers, STEWART [address] [place] [address] Allergies Active Allergy Reactions Criticality Noted Date [...] 4 Active Additional Information Patient taking differently: [id number], Reported on 07/03/2024 citalopram 5 MG OR [...] Nasal Solution (Astelin)Indica tions:Chronic rhinitis Administer 1 [place] into nostril in the morning and 1 [place] before bedtime. 90 mL 3 4 Active [...] encounter Miscellaneous Notes * Telephone Encounter - Keira Vickers RDN - 07/03/2024 2:48 PM EST Contacted pt to follow-up after initial diabetes visit from May 08. He voices no questions or concerns related to diabetes. He declines offer of diabetes follow-up visit. Encouraged him to contact me via [employer] ([employer]) if any issues arise. Keira Vickers RDN, Clinical Dietitian II, [facility] Clinical Nutrition Services [facility] [address] [place] [address] Available via [employer] ([employer]) Portal documented in this encounter Plan of Treatment Upcoming Encounters Date Type Department Care Team (Late st Contact Info) Description 07/10/2024 9:30 AM EST Office Visit Cardiology, [facility] [address] [place] [address] [place] Ennis, DO [address] [place] [address] 09/02/2024 12:00 PM EST Office Visit General Internal Medicine [facility] Ellie [place] [address] [facility] [place] [address] Wesley Leary, 200 [facility] [place] [address] 11/04/2024 10:20 AM EDT Office Visit Family Practice, [place] Ken [address] [place] [address] Osito Alfaro MD [address] [place] [address] 11/11/2024 9:00 AM EDT Nurse Only Ancillary Department, Osmin Gaspar [address] [place] [phone] [place], Nurse Annual Wellness [address] [facility] [place] [address] 05/21/2025 10:00 AM EDT Imaging Radiology [facility] [address] [place] [address] 05/28/2025 11:00 AM EDT Office Visit Urology Bette Guardado [address] [place] [address] Osmany White Jr., MD [address] [place] [address] Scheduled Procedures Name Priority Associated Diagnoses Date/Ti me ESOPHAGOGASTRODUODENOSCOPY ( EGD), FLEXIBLE, TRANSORAL, DIAGNOSTIC Recall Gastritis COLONOSCOPY FLEXIBLE PROXIMAL DIAGNOSTIC Recall History of colonic polyps Health Maintenance Due Date Last Done Comments Diabetic Eye Exam 1966 Diabetic Foot Exam 1966 COVID-19 Vaccine ( season) 2024 08/18/2021, 12/27/2020, 12/05/2020 CKD PHOS USE SMARTSET 59926 10/24/2024 10/25/2023 Adult Wellness Visit 11/06/2024 11/07/2023, 11/01/19 23 Depression Monitoring 11/06/2024 11/07/2023 HbA1c 12/03/2024 06/04/2024, 100 03/2024, 10/25/2023, Additional history exists GFR 12/31/2024 07/03/2024, 05/08, 05/14/2024, Additional history exists Hepatitis C Screening 04/30/2025 Postpo katiana from 1966 (Patient Declined After Education) Zoster Vaccines (2 of 2) 04/30/2025 10/25/2023 Pos tponed from 12/20/2023 (Patient Declined After Education) Albumin/Creatinine Ratio 05/14/2025 024, 06/13/2023, 12/21/2022 CKD HGB USE SMARTSET 72206 07/03/202507/03, 07/03/2024, 06/04/2024, Additional history exists DTap/Tdap [...] this encounter Medical Devices Implanted Type Area Police Surgeon Device Identifier Shelf Expiration Date Model / Serial / Lot Kit Accessory Ams 700 [id number] - [id number] Implanted:Qty : 1 on 03/17/2022 [place] Kh[place] [facility] [place]A: Scrotum Soleil Insulation [id number] 01/19/2027 [id number] / / [id number] Rte, Snapcone, Cx.Lgx 0.5cm - [id number] Implanted:Qty : 1 on 03/17/2022 by Trevor Khanna [place] [facility] [place]/A: Penis Eventdoo SCIENTIFIC : UROLOGY [id number] 10/20/2026 [id number] / / [id number] Cx Precon Ms 21cm Ps 12cm - [id number] Implanted:Qty : 1 on 03/17/2022 by Trevor Khanna [place] [facility] [place]/A: Penis Soleil Insulation [id number] 08/26/2023 [id number] / / [id number] Resvr Conceal 486609-79 - [id number] Implanted:Qty : 1 on 03/17/2022 by Trevor Khanna [place] [facility] [place]/A: Pelvis Soleil Insulation [id number] 11/17/2023 [id number] / / [id number] documented as of this encounter Advance Directives * Full Code (Latest Code Status on File) Date Activated Date Inactivated Comments 03/17/2022 10:18 AM 03/18/2022 2:38 PM Question Answer Comments Discussion of Advance Directives occurred with: Not Discussed Care Teams Director Part Relationship Specialty Start Date End Date Osito Alfaro MD [address] [place] [address] PCP - General Family Medicine 09/01/21 documented as of this encounter
--- OUTSIDE RECORDS SUMMARY | 2024-08-26 07:36 | External Medical Summary ---
Author Name Unknown Address Unknown Organization [facility] [address] - [address] [place] [address] Laboratory Report Ordering Provider Test Date Status ALESSIO BRITO 07/03/2024 09:34:08 Final Warfarin Therapy
INR: 2 .0-3.0 conventional anticoagulation
INR: 2.5- 3.5 high intensity anticoagulation Observation Date Value Abnormality Reference (Units ) Status PT 07/03/2024 09:34:08 13.9 11.6-15.2 (seconds) Final INR 07/03/2024 09:34:08 1.1 0.8-1.2 Final Performing Location [facility] [address] - [address] [place] [address]
--- OUTSIDE RECORDS SUMMARY | 2024-08-26 07:36 | External Medical Summary | Summary of Care ---
Author Name Unknown Organization [facility] Address [address] [place] [address] Phone [phone] Care Team Providers Care Client Service Representative Name Role Phone Osito Alfaro MD Primary Care Provider [phone] Reason for Visit * Reason Comments Outpatient Testing Encounter Details Date Type Department Care Team (Late st Contact Info) Description 07/03/2024 9:40 AM EST Laboratory Laboratory, [facility] [address] [facility] [place] [phone] [facility] [address] [facility] [address] PAF (paroxysmal atrial fibrillation) ([facility]) Allergies Active Allergy Reactions Criticality Noted Date [...] 4 Active Additional Information Patient taking differently: [id number], Reported on 07/03/2024 citalopram 5 MG OR [...] Nasal Solution (Astelin)Indica tions:Chronic rhinitis Administer 1 [place] into nostril in the morning and 1 [place] before bedtime. 90 mL 3 4 Active [...] Magda Mendoza RN documented in this encounter Plan of Treatment Upcoming Encounters Date Type Department Care Team (Late st Contact Info) Description 07/10/2024 9:30 AM EST Office Visit Cardiology, [address] [place] [address] Washington Ennis, DO [address] [place] [address] 09/02/2024 12:00 PM EST Office Visit General Internal Medicine [facility] [address] [place], [place] [address] Wesley Leary, DO 200 [facility] [place] [address] 11/04/2024 10:20 AM EDT Office Visit Family Practice, [facility] [address] Osito Alfaro MD 226 [place] [address] 11/11/2024 9:00 AM EDT Nurse Only Ancillary Department, [place] [facility] [address] [facility] [address] [place], Nurse Annual Wellness [facility] [place] [address] 05/21/2025 10:00 AM EDT Imaging Radiology [facility] 132 [facility] [place] [address] 05/28/2025 11:00 AM EDT Office Visit Urology Bette Guardado [address] [facility] [address] [place] [address] Osmany White Jr., MD [address] [place] [address] Pending Results Name Type Priority Associated Diagnoses Date /Time BASIC METABOLIC PANEL Lab Routine PAF (paroxysmal atrial fibrillation) (HCC) 07/03/2024 9:34 AM EST CBC WITH WBC DIFFERENTIAL Lab Routine PAF (paroxysmal atrial fibrillation) (HCC) 07/03/2024 9:34 AM EST PT INR Lab Routine PAF (paroxysmal atrial fibrillation) ([facility]) 07/03/2024 9:34 AM EST CBC Lab Routine PAF (paroxysmal atrial fibrillation) ([facility]) 07/03/2024 9:34 AM EST DIFFERENTIAL, AUTOMATED Lab Routine PAF (paroxysmal atrial fibrillation) ([facility]) 07/03/2024 9:34 AM EST Scheduled Procedures Name Priority Associated Diagnoses Date/Ti me ESOPHAGOGASTRODUODENOSCOPY ( EGD), FLEXIBLE, TRANSORAL, DIAGNOSTIC Recall Gastritis COLONOSCOPY FLEXIBLE PROXIMAL DIAGNOSTIC Recall History of colonic polyps Health Maintenance Due Date Last Done Comments Diabetic Eye Exam 1966 Diabetic Foot Exam 1966 COVID-19 Vaccine ( season) 2024 08/18/2021, 12/27/2020, 12/05/2020 CKD PHOS USE SMARTSET 95852 10/24/2024 10/25/2023 Adult Wellness Visit 11/06/2024 11/07/2023, [...] 024, 06/13/2023, 12/21/2022 CKD HGB USE SMARTSET 59618 06/04/202506/04, 06/04/2024, 10/25/2023, Additional history exists DTap/Tdap [...] this encounter Medical Devices Implanted Type Area Cargo Agent Device Identifier Shelf Expiration Date Model / Serial / Lot Kit Accessory Ams 700 [id number] - [id number] Implanted:Qty : 1 on 03/17/2022 by Trevor Khanna MD at OR [facility] [place] N/A: Scrotum Nuxeo [id number] 01/19/2027 [id number] / / [id number] Rte, Snapcone, Cx.Lgx 0.5cm - [id number] Implanted:Qty : 1 on 03/17/2022 by Trevor Khanna MD at OR [facility] N/A: Penis BOSTON SCIENTIFIC : UROLOGY [id number] 10/20/2026 [id number] / / [id number] Cx Precon Ms 21cm Ps 12cm - [id number] Implanted:Qty : 1 on 03/17/2022 by Trevor Khanna MD at OR [facility] N/A: Penis Nuxeo [id number] 08/26/2023 [id number] / / [id number] Resvr Conceal 879263-74 - [id number] Implanted:Qty : 1 on 03/17/2022 by Trevor Khanna MD at OR [facility] N/A: Pelvis MyFeelBack SCIENTIFIC Aras [id number] 11/17/2023 [id number] / / [id number] documented as of this encounter Visit Diagnoses Diagnosis PAF (paroxysmal atrial fibrillation) (HCC) Atrial fibrillation documented in this encounter Advance Directives * Full Code (Latest Code Status on File) Date Activated Date Inactivated Comments 03/17/2022 10:18 AM 03/18/2022 2:38 PM Question Answer Comments Discussion of Advance Directives occurred with: Not Discussed Care Teams Client Service Representative Relationship Specialty Start Date End Date Osito Alfaro MD [address] [place] [address] PCP - General Family Medicine 09/01/21 documented as of this encounter
--- OUTSIDE RECORDS SUMMARY | 2024-08-26 07:36 | External Medical Summary ---
Author Name Unknown Address Unknown Organization [facility] [address] - [address] [place] [address] Laboratory Report Ordering Provider Test Date Status ALESSIO BRITO 07/03/2024 09:34:08 Final Observation Date Value Abnormality Reference (Units ) Status WBC, Total 07/03/2024 09:34:08 7.68 4.00-10.8 0 (K/uL) Final RBC 07/03/2024 09:34:08 4.69 4.50-5.25 (M/uL) Final Hemoglobin 07/03/2024 09:34:08 13.6 Below low normal 14 .0-16.8 (g/dL) Final HCT 07/03/2024 09:34:08 41.9 40.0-48.4 (%) Final MCV 07/03/2024 09:34:08 89.3 82.0-99.5 (fL) Final MCH 07/03/2024 09:34:08 29.0 27.0-34.0 (pg) Final MCHC 07/03/2024 09:34:08 32.5 32.0-36.0 (g/dL) Final RDW 07/03/2024 09:34:08 16.1 11.5-15.5 (%) Final Platelets 07/03/2024 09:34:08 255 140-400 (K /uL) Final MPV 07/03/2024 09:34:08 10.8 6.6-11.1 ( fL) Final [facility]forming Location [facility] [address] - [address] [place] [address]
--- OUTSIDE RECORDS SUMMARY | 2024-08-26 07:36 | External Medical Summary | Summary of Care ---
Author Name Unknown Organization [facility] Address [address] [facility] [place] [address] Phone [phone] Care Team Providers Care Booking Agent Name Role Phone Osito Alfaro MD Primary Care Provider [phone] Reason for Visit * Reason Comments Follow Up Encounter Details Date Type Department Care Team (Late st Contact Info) Description 07/10/2024 9:30 AM EST Office Visit Cardiology, [facility] [address] [place] [address] Washington Ennis, DO [address] [place] [address] PAF (paroxysmal atrial fibrillation) (HCC)*; HTN, goal below 140/90; Aneurysm of ascending aorta without rupture (HCC); SOB (shortness of breath) Allergies Active Allergy Reactions Criticality Noted Date Comments Cat Dander 09/01/2016 Warfarin Hives 09/01/2016 Dust Cough 03/16/2009 Mold Cough 03/16/2009 Other Allergy (See Comments) 04/04/2022 Grass - sneezing/sinus Pollen Cough 03/16/2009 Also grass documented as of this encounter (statuses as of 07/10/2024) Medications LORATADINE 10 MG PO CAPS Take [...] 4 Active Additional Information Patient taking differently: [id number], Reported on 07/10/2024 citalopram 5 MG OR [...] Nasal Solution (Astelin)Indica tions:Chronic rhinitis Administer 1 [place] into nostril in the morning and 1 [place] before bedtime. 90 mL 3 4 Active [...] as of this encounter (statuses as of 07/10/2024) Active Problems Problem Noted Date Diagnosed Date [...] as of this encounter (statuses as of 07/10/2024) Resolved Problems Problem Noted Date Diagnosed Date [...] as of this encounter (statuses as of 07/10/2024) Immunizations Name Administration Dates Next Due COVID-19 mRNA, LNP-s, No Pre serve, 2-Dose Series (CoSchedule) 08/18/2021 Pneumococcal Conjugate Vacc, 13 Valent (Prevnar) [...] Sign Reading Time Taken Comments Blood Pressure 128/82 07/10/2024 9:48 AM EST Pulse 82 07/10/2024 9:48 AM EST Temperature - - Respiratory Rate 20 07/10/2024 9:48 AM EST Oxygen Saturation - - Inhaled Oxygen Concentration - - Weight 106.5 kg (234 lb 14.4 oz) 07/10/2024 9:48 AM EST Height - - Body Mass Index 34.67 06/18/2024 4:03 PM EST documented in this encounter Functional Status * Are you deaf or do you have serious difficulty hearing? Answer Date of Assessment Author No 03/17/2022 11:42 AM Magda Mendoza RN * Are you blind or do you have serious difficulty seeing, even when wearing glasses? Answer Date of Assessment Author No 03/17/2022 11:42 AM Magda Mendoza, MARILYN * Do you have serious difficulty walking or climbing stairs? (5 years old or older) Answer Date of Assessment Author No 03/17/2022 11:42 AM Magda Mendoza RN * Do you have difficulty dressing or bathing? (5 years old or older) Answer Date of Assessment Author No 03/17/2022 11:42 AM Magda Mendoza, MARILYN * Because of a physical, mental, or [...] Progress Notes * Washington Ennis DO - 07/10/2024 9:56 AM EST SUBJECTIVE: Patient returns today for follow-up of recently diagnosed atrial fibrillation with rapid ventricular response. Evaluated by the undersigned July 03, 2024. Toprol-XL increased from 100to 150 mg daily and prescribed oral anticoagulation Eliquis. Heart rate improved from [id number] beats per minute at rest to 83 beats per minute per ECG today. Amlodipine discontinued July 03, 2024 due to hypotension. Home BP readings now in normal range. Reports fatigue and chronic dyspnea on exertion. Symptoms noted prior to recent hospitalization. Denies chest pain, orthopnea, PND, lower extremity edema, or weight gain. No palpitations, lightheadedness, dizziness, syncope, or near syncope. Tolerating Eliquis. Denies signs/symptoms of GI/ blood loss. Hospital summary: Admitted to [facility] 05/22/2024 due to sepsis. Patient had dental surgery May with removal of the old implant with new implant placement. Developed right-sided facial pain and swelling and presented to the emergency department. Eyelid was apparently swollen shut. Admittedwith a diagnosis of sepsis, and treated with oral antibiotics. ECG: Atrial fibrillation, ventricular rate 83 beats per minute, left anterior fascicular block. 2D echocardiogram report June 14, 2024: The [...] 0.1 % Nasal Solution (Astelin) Administer 1 [place] into nostril in the morning and 1 [place] before bedtime. 90 mL 3 Lisinopril 40 [...] 1 Tablet before bedtime. 60 Tablet 6 No current facility-administered medications for this visit. Lipid Panel Results: Results for orders placed or performed in visit on 05/14/24 LIPID PANEL WITH DIRECT LDL IF TG IS HIGH Result Value Ref Range Triglycerides 162 <=174 mg/dL Cholesterol 129 <200 mg/dL HDL Cholesterol 36 (L) >39 mg/dL Non-HDL Cholesterol 93 <=159 mg/dL Lab Results Component Value Date/Time TSH - PANCHOCONRADOER 2.37 06/04/2024 08:35 AM TSH - GECONRADOER 2.60 03/01/2024 12:48 PM CBC Results: Results [...] 0 <=0 /100 WBCs OBJECTIVE/PHYSICAL EXAMINATION: BP 128/82 | Pulse 82 | Resp 20 | Wt 106.5 kg (234 lb 14.4 oz) | BMI 34.67 kg/m | BSA 2.28 m General: NAD, AAO x3, well nourished. HEENT: Normocephalic. Atraumatic. Conjunctiva pink, no scleral icterus. No carotid bruits, the carotid upstrokes are brisk. No JVD. No HJR Heart: Irregular rhythm, S-1 and S-2 . No murmurs or rubs appreciated. PMI is not displaced. No RV heave. Lungs: Clear bilateral without rales , rhonchi, or wheeze. Abdomen: Normal bowel sounds. Soft. Nontender. No masses or organomegaly. No abdominal bruits. Extremities: No clubbing, cyanosis, or edema. Pulses: radial=2/4. Neuro: No focal deficits. ASSESSMENT: 1. Paroxysmal atrial fibrillation with controlled ventricular response -symptomatic, fatigue and SOB -anticoagulated since July 03, 2024 2. Hypotension due to meds -resolved with discontinuation of amlodipine -normotensive today and per home blood pressure cuff 3. Moderate aortic root and ascending aortic enlargement 4. Remote history of TIA (memory loss) 5. Hospitalization due to sepsis related to dental infection after recent procedure. PLAN: Heart electroconversion, external Ekg Natural history, pathophysiology, and stroke risk associated with paroxysmal atrial fibrillation reviewed. Continue Toprol-XL 150 mg daily and oral anticoagulation with Eliquis. Discussed importance of continuing oral anticoagulation uninterrupted for a minimum of 4 weeks prior to external direct current cardioversion. Rate versus rhythm control strategy reviewed. Risks, benefits, alternatives to external direct current cardioversion discussed. Patient agreeable to proceed. Amlodipine discontinued. Continue lisinopril. All questions answered to patient's satisfaction. Follow Up: Return in about 2 months (around 09/10/2024). I spent a total of 40-54 minutes (exact time 40 mins) on the date of service in preparation, delivery, and documentation of the care provided to Clovis Bradford excluding any time spent in the performance of separately billed services or time spent by another provider/QHP. Washington Ennis DO, [facility] Associate Cardiology - [facility] documented in this encounter Nursing Notes * Roxana Gómez LPN - 07/10/2024 9:47 AM EST Examination Room: 11 Name: Clovis Bradford Date of : 1950 Reason for Visit: Follow-up Problems/Concerns: Weak and tired soboe Interim Hosp(s): none Chest Pain/SOB: Denies chest pain, soboe MyChart Discussed: ALREADY ACTIVE Patient was instructed to not get up on the exam table until directed and assisted by their provider; patient is to remain seated in the chair/ wheelchair/ exam table for fall prevention and safety reasons. Patient is aware staff will assist stepping down off exam table with personnel. documented in this encounter Plan of Treatment Upcoming Encounters Date Type Department Care Team (Late st Contact Info) Description 09/02/2024 12:00 PM EST Office Visit [facility] [place] [address] [place] [address] Wesley Leary, [address] [place] [address] 11/04/2024 10:20 AM EDT [facility] [place] [facility] [address] [facility] [place] [address] Osito Alfaro MD [address] [place] [address] 11/11/2024 9:00 AM EDT Nurse Only Ancillary Department, [place] Gaspar [address] [facility] [address] [place], Nurse Annual Wellness [address] [place], [place] [address] 05/21/2025 10:00 AM EDT Imaging Radiology [facility] [address] [facility] [place] [address] 05/28/2025 11:00 AM EDT Office Visit Urology Bette Guardado [address] [place] [address] Osmany White Jr., MD [address] [place] [address] Scheduled Orders Name Type Priority Associated Diagnoses Orde r Schedule EKG EKG Routine PAF (paroxysmal atrial fibrillation) (HCC) Ordered: 07/10/2024 HEART ELECTROCONVERSION, EXTERNAL Procedures Routine PAF (paroxysmal atrial fibrillation) (HCC) Ordered: 07/10/2024 Scheduled Procedures Name Priority Associated Diagnoses Date/Ti me ESOPHAGOGASTRODUODENOSCOPY ( EGD), FLEXIBLE, TRANSORAL, DIAGNOSTIC Recall Gastritis COLONOSCOPY FLEXIBLE PROXIMAL DIAGNOSTIC Recall History of colonic polyps Health Maintenance Due Date Last Done Comments Diabetic Eye Exam 1966 Diabetic Foot Exam 1966 COVID-19 Vaccine ( season) 2024 08/18/2021, 12/27/2020, 12/05/2020 CKD PHOS USE SMARTSET 19373 10/24/2024 10/25/2023 Adult Wellness Visit 11/06/2024 11/07/2023, [...] 024, 06/13/2023, 12/21/2022 CKD HGB USE SMARTSET 95071 07/03/202507/03, 07/03/2024, 06/04/2024, Additional history exists DTap/Tdap [...] this encounter Medical Devices Implanted Type Area Senior Cytogenetic Technologist Device Identifier Shelf Expiration Date Model / Serial / Lot Kit Accessory Ams 700 [id number] - [id number] Implanted:Qty : 1 on 03/17/2022 by Trevor Khanna MD at OR [facility] N/A: Scrotum [employer] [id number] 01/19/2027 [id number] / / [id number] Rte, Snapcone, Cx.Lgx 0.5cm - [id number] Implanted:Qty : 1 on 03/17/2022 by Trevor Khanna MD at OR [facility] N/A: Penis [employer] : UROLOGY [id number] 10/20/2026 [id number] / / [id number] Cx Precon Ms 21cm Ps 12cm - [id number] Implanted:Qty : 1 on 03/17/2022 by Trevor Khanna MD at OR [facility] N/A: Penis [employer] [id number] 08/26/2023 [id number] / / [id number] Resvr Conceal [id number] - [id number] Implanted:Qty : 1 on 03/17/2022 by Trevor Khanna MD at OR [facility] N/A: Pelvis [employer] [id number] 11/17/2023 [id number] / / [id number] documented as of this encounter Visit Diagnoses Diagnosis PAF (paroxysmal atrial fibrillation) (HCC)- Primary Atrial fibrillation HTN, goal below 140/90 Unspecified essential hypertension Aneurysm of ascending aorta without rupture (HCC) SOB (shortness of breath) Shortness of breath documented in this encounter Advance Directives * Full Code (Latest Code Status on File) Date Activated Date Inactivated Comments 03/17/2022 10:18 AM 03/18/2022 2:38 PM Question Answer Comments Discussion of Advance Directives occurred with: Not Discussed Care Teams Booking Agent Relationship Specialty Start Date End Date Osito Alfaro MD [address] [place] [address] PCP - General Family Medicine 09/01/21 documented as of this encounter
--- OUTSIDE RECORDS SUMMARY | 2024-08-26 07:37 | External Medical Summary | Summary of Care ---
Author Name Unknown Organization [facility] Address [address] [facility] [place] [address] Phone [phone] Care Team Providers Care Maintenance Engineer Name Role Phone Osito Alfaro MD Primary Care Provider [phone] Encounter Details Date Type Department Care Team (Late st Contact Info) Description 05/27/2024 Population Health External Data Unspecified Department Allergies Active Allergy Reactions Criticality Noted Date Comments Cat Dander 09/01/2016 Warfarin Hives 09/01/2016 Dust Cough 03/16/2009 Mold Cough 03/16/2009 Other Allergy (See Comments) 04/04/2022 Grass - sneezing/sinus Pollen Cough 03/16/2009 Also grass documented as of this encounter (statuses as of 05/27/2024) Medications Medication Sig Dispensed Refills Start Date [...] 12/25/2023 Active Additional Information Patient taking differently: [id number], Reported on 03/18/2024 Fluticasone Propionate 50 MCG/ACT [...] Nasal Solution (Astelin)Indicatio ns:Chronic rhinitis Administer 1 [place] into nostril in the morning and 1 [place] before bedtime. 90 mL 3 04/30/2024 Active Lisinopril 40 MG Oral TabletIndications: HTN, goal below 140/90 Take 1 Tablet by mouth in the morning. 90 Tablet 3 04/30/2024 Active documented as of this encounter (statuses as of 05/27/2024) Active Problems Problem Noted Date Diagnosed Date [...] as of this encounter (statuses as of 05/27/2024) Resolved Problems Problem Noted Date Diagnosed Date [...] as of this encounter (statuses as of 05/27/2024) Immunizations Name Administration Dates Next Due COVID-19 [...] 07/16/2024 2:30 PM EST Office Visit [facility] [address] [facility] [place] [address] Fifi Gil CRNP [address] [place] [address] [place] [address] 11/04/2024 10:20 AM EDT Office [address] [phone] Osito Alfaro MD [address] [place] [facility] [place] [address] 11/11/2024 9:00 AM EDT Nurse Only Ancillary Department, [place] [address] [place] [address] [place], Nurse Annual Wellness [address] [place] [address] 05/21/2025 10:00 AM EDT Imaging Radiology [facility] [address] [place] [address] 05/28/2025 11:00 AM EDT Office Visit Urology Bette Guardado [address] [place] [address] Osmany White Jr., MD [address] [place] [address] Scheduled Procedures Name Priority Associated Diagnoses Date/Ti me ESOPHAGOGASTRODUODENOSCOPY ( EGD), FLEXIBLE, TRANSORAL, DIAGNOSTIC Recall Gastritis COLONOSCOPY FLEXIBLE PROXIMAL DIAGNOSTIC Recall History of colonic polyps Health Maintenance Due Date Last Done Comments COVID-19 Vaccine ( season) 2024 08/18/2021, 12/27/2020, 12/05/2020 Diabetic Eye Exam 06/18/2024 Postponed from 1966 (Acute Illness) Diabetic Foot Exam 06/21/2024 Postponed from 1966 (Acute Illness) CKD HGB USE SMARTSET 64586 10/24/202410/24, 09/20/2022, 09/20/2022, Additional history exists CKD PHOS USE SMARTSET 53862 10/24/2024 10/25/2023 Adult Wellness Visit 11/06/2024 11/07/2023, 11/01/19 23 Depression Monitoring 11/06/2024 11/07/2023 GFR 11/12/2024 05/14/2024, 10/06, 06/13/2023, Additional history exists HbA1c 11/12/2024 05/14/2024, 10/06, 06/13/2023, Additional history exists Hepatitis C Screening [...] this encounter Medical Devices Implanted Type Area Process Manufacturing Engineer Device Identifier Shelf Expiration Date Model / Serial / Lot Kit Accessory Ams 700 [id number] - [id number] Implanted:Qty : 1 on 03/17/2022 by Trevor Khanna MD at OR [facility] N/A: Scrotum [employer] [id number] 01/19/2027 [id number] / / [id number] Rte, Snapcone, Cx.Lgx 0.5cm - [id number] Implanted:Qty : 1 on 03/17/2022 by Trevor Khanna MD at OR [facility] N/A: Penis [employer] : UROLOGY [id number] 10/20/2026 [id number] / / [id number] Cx Precon Ms 21cm Ps 12cm - [id number] Implanted:Qty : 1 on 03/17/2022 by Trevor Khanna MD at OR [facility] N/A: Penis [employer] [id number] 08/26/2023 [id number] / / [id number] Resvr Conceal [id number] - [id number] Implanted:Qty : 1 on 03/17/2022 by Trevor Khanna MD at OR [facility] N/A: Pelvis [employer] [id number] 11/17/2023 [id number] / / [id number] documented as of this encounter Advance Directives * Full Code (Latest Code Status on File) Date Activated Date Inactivated Comments 03/17/2022 10:18 AM 03/18/2022 2:38 PM Question Answer Comments Discussion of Advance Directives occurred with: Not Discussed Care Teams Maintenance Engineer Relationship Specialty Start Date End Date Osito Alfaro MD [address] [place] [address] PCP - General Family Medicine 09/01/21 documented as of this encounter
--- OUTSIDE RECORDS SUMMARY | 2024-08-26 07:37 | External Medical Summary | Summary of Care ---
Author Name Unknown Organization [facility] Address [address] [place] [address] Phone [phone] Care Team Providers Care Drier Unloader Name Role Phone Osito Alfaro MD Primary Care Provider [phone] Reason for Visit * Reason Onset Date Comments Test Results 06/19/2024 Encounter Details Date Type Department Care Team (Late st Contact Info) Description 06/19/2024 Telephone Cardiology, [facility] [address] [place] [address] Anton Malone MD [address] [place] [address] Test Results Allergies Active Allergy Reactions Criticality Noted Date Comments Cat Dander 09/01/2016 Warfarin Hives 09/01/2016 Dust Cough 03/16/2009 Mold Cough 03/16/2009 Other Allergy (See Comments) 04/04/2022 Grass - sneezing/sinus Pollen Cough 03/16/2009 Also grass documented as of this encounter (statuses as of 06/19/2024) Medications LORATADINE 10 MG PO CAPS Take [...] 4 Active Additional Information Patient taking differently: [id number], Reported on 03/18/2024 Metoprolol Succinate ER 100 [...] Nasal Solution (Astelin)Indicat ions:Chronic rhinitis Administer 1 [place] into nostril in the morning and 1 [place] before bedtime. 90 mL 3 4 Active [...] as of this encounter (statuses as of 06/19/2024) Active Problems Problem Noted Date Diagnosed Date [...] as of this encounter (statuses as of 06/19/2024) Resolved Problems Problem Noted Date Diagnosed Date [...] as of this encounter (statuses as of 06/19/2024) Immunizations Name Administration Dates Next Due COVID-19 mRNA, LNP-s, No Pre serve, 2-Dose Series (ironSource) 08/18/2021 Pneumococcal Conjugate Vacc, 13 Valent (Prevnar) [...] encounter Miscellaneous Notes * Telephone Encounter - Jac Pope LPN - 06/19/2024 1:28 PM EST Sent patient a Sensor Tower message to make aware. ----- Message from Anton Malone MD sent at 06/19/2024 12:58 PM EST ----- No significant change from prior study, good Aortic root and ascending aortic size is enlarged but not significantly changed from prior. There is only mild aortic insufficiency. documented in this encounter Plan of Treatment Upcoming Encounters Date Type Department Care Team (Late st Contact Info) Description 07/03/2024 8:30 AM EST Office Visit Cardiology, [facility] [address] [facility] [place] [address] Washington Ennis, DO [address] [place] [address] 09/02/2024 12:00 PM EST Office Visit General Internal Medicine [place] [address] [place] [address] Wesley Leary, DO [address] [place] [address] 11/04/2024 10:20 AM EDT Office Visit [facility] [place] [address] [facility] [address] Osito Alfaro MD [address] [place] [address] 11/11/2024 9:00 AM EDT Nurse Only Ancillary Department, [place] Gaspar [address] [place] [address] [place], Nurse Annual Wellness [address] [place] [address] 05/21/2025 10:00 AM EDT Imaging Radiology [facility] [address] [place] [address] 05/28/2025 11:00 AM EDT Office Visit Urology Bette Guardado [address] [place] [address] sOmany White Jr., MD [address] [place] [address] Scheduled Procedures Name Priority Associated Diagnoses Date/Ti me ESOPHAGOGASTRODUODENOSCOPY ( EGD), FLEXIBLE, TRANSORAL, DIAGNOSTIC Recall Gastritis COLONOSCOPY FLEXIBLE PROXIMAL DIAGNOSTIC Recall History of colonic polyps Health Maintenance Due Date Last Done Comments Diabetic Eye Exam 1966 COVID-19 Vaccine ( season) 2024 08/18/2021, 12/27/2020, 12/05/2020 Diabetic Foot Exam 06/21/2024 Postponed from 1966 (Acute Illness) CKD PHOS USE SMARTSET 63321 10/24/2024 10/25/2023 Adult Wellness Visit 11/06/2024 11/07/2023, 11/01/19 23 Depression Monitoring 11/06/2024 11/07/2023 GFR 12/03/2024 06/04/2024, 03/2024, 10/25/2023, Additional history exists HbA1c 12/03/2024 06/04/2024, 03/2024, 10/25/2023, Additional history exists Hepatitis C Screening 04/30/2025 Postpo katiana from 1966 (Patient Declined After Education) Zoster Vaccines (2 of 2) 04/30/2025 10/25/2023 Pos tponed from 12/20/2023 (Patient Declined After Education) Albumin/Creatinine Ratio 05/14/2025 024, 06/13/2023, 12/21/2022 CKD HGB USE SMARTSET 93356 06/04/202506/04, 06/04/2024, 10/25/2023, Additional history exists DTap/Tdap [...] this encounter Medical Devices Implanted Type Area Weight And Test Bar Clerk Device Identifier Shelf Expiration Date Model / Serial / Lot Kit Accessory Ams 700 [id number] - [id number] Implanted:Qty : 1 on 03/17/2022 by Trevor Khanna MD at OR [facility] N/A: Scrotum [employer] [id number] 01/19/2027 [id number] / / [id number] Rte, Snapcone, Cx.Lgx 0.5cm - [id number] Implanted:Qty : 1 on 03/17/2022 by Trevor Khanna MD at OR [facility] N/A: Penis [email or web address] : UROLOGY [id number] 10/20/2026 [id number] / / [id number] Cx Precon Ms 21cm Ps 12cm - [id number] Implanted:Qty : 1 on 03/17/2022 by Trevor Khanna MD at OR [facility] N/A: Penis [employer] [id number] 08/26/2023 [id number] / / [id number] Resvr Conceal [id number] - [id number] Implanted:Qty : 1 on 03/17/2022 by Trevor Khanna MD at OR [facility] N/A: Pelvis [employer] [id number] 11/17/2023 [id number] / / [id number] documented as of this encounter Advance Directives * Full Code (Latest Code Status on File) Date Activated Date Inactivated Comments 03/17/2022 10:18 AM 03/18/2022 2:38 PM Question Answer Comments Discussion of Advance Directives occurred with: Not Discussed Care Teams Drier Unloader Relationship Specialty Start Date End Date Osito Alfaro MD [address] [place] [address] PCP - General Family Medicine 09/01/21 documented as of this encounter
--- OUTSIDE RECORDS SUMMARY | 2024-08-26 07:37 | External Medical Summary | Summary of Care ---
Author Name Unknown Organization [facility] Address [address] [place] [address] Phone [phone] Care Team Providers Care Sleeper Cutter Name Role Phone Osito Alfaro MD Primary Care Provider [phone] Reason for Visit * Reason Comments Follow Up Encounter Details Date Type Department Care Team (Late st Contact Info) Description 06/18/2024 4:00 PM EST Office Visit General Internal Medicine [facility] [address] [facility] [place] [address] Wesley Leary [address] [facility] [place] [address] Chronic fatigue*; Aneurysm of ascending aorta without rupture (HCC); Chronic kidney disease, stage 3a (HCC); Dilated aortic root (HCC); HTN, goal below 140/90; Type 2 diabetes mellitus with stage 3a chronic kidney disease, without long-term current use of insulin (HCC); Post-nasal drip; Iron deficiency anemia, unspecified iron deficiency anemia type Allergies Active Allergy Reactions Criticality Noted Date Comments Cat Dander 09/01/2016 Warfarin Hives 09/01/2016 Dust Cough 03/16/2009 Mold Cough 03/16/2009 Other Allergy (See Comments) 04/04/2022 Grass - sneezing/sinus Pollen Cough 03/16/2009 Also grass documented as of this encounter (statuses as of 06/18/2024) Medications LORATADINE 10 MG PO CAPS Take [...] 4 Active Additional Information Patient taking differently: [id number], Reported on 03/18/2024 Metoprolol Succinate ER 100 [...] Nasal Solution (Astelin)Indicat ions:Chronic rhinitis Administer 1 [place] into nostril in the morning and 1 [place] before bedtime. 90 mL 3 4 Active [...] Take 1 Tablet by mouth at bedtime. Active Montelukast Sodium 10 MG Oral Tablet (Singulair)Indic ations:Post-nasa l drip Take 1 Tablet by mouth in the morning. 30 Tablet Active documented as of this encounter (statuses as of 06/18/2024) Active Problems Problem Noted Date Diagnosed Date [...] as of this encounter (statuses as of 06/18/2024) Resolved Problems Problem Noted Date Diagnosed Date [...] as of this encounter (statuses as of 06/18/2024) Immunizations Name Administration Dates Next Due COVID-19 [...] Sign Reading Time Taken Comments Blood Pressure 118/82 06/18/2024 4:03 PM EST Pulse 75 06/18/2024 4:03 PM EST Temperature 36.6 C (97.9 F) 06/18/2024 4:03 PM ES T Respiratory Rate - - Oxygen Saturation 97% 06/18/2024 4:03 PM EST Inhaled Oxygen Concentration - - Weight 105 kg (231 lb 8 oz) 06/18/2024 4:[address] Height 175.3 cm (5' 9.02") 06/18/2024 4:03 PM ES T Body Mass Index 34.17 06/18/2024 4:03 PM EST documented in this [...] of Assessment Author No 03/17/2022 11:42 AM Magad Mendoza RN documented as of this encounter Mental Status * Because of a physical, mental, or emotional condition, do you have serious difficulty concentrating, remembering, or making decisions? (5 years old or older) Answer Entry Date Author No 03/17/2022 11:42 AM Magda Mendoza RN documented in this encounter Progress Notes * [place] Wesley Scott, DO - 06/18/2024 4:10 PM EST Subjective Clovis Bradford is a 74 year old male. Chief Complaint Patient presents with Follow Up HPI: Patient presents to office for follow up. Lab work reviewed with patient. Medication list reviewed. Patient presented to last appointment with description of chills, cold sensation throughout his body and fatigue. Usually while resting. Few weeks prior to previous visit had been hospitalized at [facility] for facial infection/cellulitis. Worried about persistent infection. Urine and blood cultures ordered at last visit showed no significant growth. Lab work for the most part looked unremarkable with the exception of mild anemia hemoglobin 13.0, borderline low ferritin, low serum iron. After lab results patient was recommended to start iron supplement with vitamin- C. Has been doing this daily. States still feels a bit tired but has not had any further chills in a few days. Did reach out to his box feeder as well who ordered echocardiogram. Results reviewed with patient/. Compared to previous study in 2022. EF hyperdynamic at 70%. Stable LVH noted. No significant valvulardisease. There was moderate enlargement of aortic root and ascending aorta noted to be 4.5 cm. Previous echo noted moderate enlargement but did not give number value. No obvious aortic regurgitation noted Had also suspected that patient may have been on too much blood pressure medication. During hospitalization his metoprolol succinate had been significantly increased had recommended that patient reduce metoprolol dosage to 100 mg a.m., 75 mg p.m.. He does have follow-up with Cardiology at [facility] later this month PMH: Patient Active Problem List Diagnosis Nocturia Impotence of organic origin BPH without obstruction/lower urinary tract symptoms HTN, goal below 140/90 Restless leg syndrome Depression Chronic kidney disease, stage 3a ([facility]) Dilated aortic root ([facility]) Hypertensive kidney disease with stage 3a chronic kidney disease ([facility]) Dyslipidemia, goal LDL below 70 Type 2 diabetes mellitus with stage 3a chronic kidney disease, without long-term current use of insulin ([facility]) History of prostate cancer Aneurysm of aorta ([facility]) Current Outpatient Medications Medication Sig Dispense Refill [...] 0.1 % Nasal Solution (Astelin) Administer 1 [place] into nostril in the morning and 1 [place] before bedtime. 90 mL 3 Lisinopril 40 MG Oral Tablet Take 1 Tablet by mouth in the morning. 90 Tablet 3 Amoxicillin-Pot Clavulanate 875-125 MG Oral Tablet (Augmentin) Take 1 Tablet by mouth in the morning and 1 Tablet at noon and 1 Tablet before bedtime. Clindamycin HCl 300 MG Oral Capsule Take 1 Capsule by mouth every 6 hours. Metoprolol Succinate ER 25 MG Oral Tablet Extended Release 24 Hour (toPROL XL) Take 1 Tablet by mouth at bedtime. No current facility-administered medications for this visit. Past Medical History: Diagnosis Date Prostate carcinoma (HCC) 06/03/2020 05/23/23 Urology note He has a history of prostate cancer post ERBT 08/2020 with hormone therapy. Past Surgical History: Procedure Laterality Date ARTHROPLASTY KNEE TOTAL left COLONOSCOPY, DIAGNOSTIC (RECTUM) 08/17/2022 radiation proctitis, benign adenomatous polyp, repeat 5 yrs / COLONOSCOPY FLEXIBLE PROXIMAL DIAGNOSTIC performed by Padmaja Patel DO at ENDOSCOPY [facility] COLONOSCOPY, DIAGNOSTIC (RECTUM) 03/29/2024 hemorrhoids/mild diverticulosis/radiation proctitis/biopsies show adenomatous polyps/recall 5 years/COLONOSCOPY FLEXIBLE PROXIMAL DIAGNOSTIC performed by Padmaja Patel DO at ENDOSCOPY [facility] EGD, FLEXIBLE, DIAGNOSTIC 03/29/2024 LA grade B reflux esophagitis/gastritis/duodenitis/biopsies mild inflammatory changes/recall 12-18 months/ESOPHAGOGASTRODUODENOSCOPY (EGD), FLEXIBLE, TRANSORAL, DIAGNOSTIC performed by Arleen Patel DO at ENDOSCOPY 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 Negative for chills and fever. HENT: Negative for congestion, sore throat and trouble swallowing. Eyes: Negative for photophobia and pain. Respiratory: Negative for cough, shortness of breath and wheezing. Cardiovascular: Negative for chest pain and palpitations. Gastrointestinal: Negative for abdominal distention, abdominal pain, blood in stool, nausea and vomiting. Genitourinary: Negative for dysuria, frequency and hematuria. Musculoskeletal: Negative for back pain and neck stiffness. Skin: Negative for pallor. Neurological: Negative for dizziness, light-headedness and headaches. Psychiatric/Behavioral: Negative for sleep disturbance. The patient is not nervous/anxious. Objective BP 118/82 (BP Site: Left Arm, BP Position: Sitting, BP Cuff Size: Regular) | Pulse 75 | Temp 36.6 C (97.9 F) (Tympanic) | Ht 1.753 m (5' 9.02") | Wt 105 kg (231 lb 8 oz) | SpO2 97% | BMI 34.17 kg/m | BSA 2.26 m Physical Exam Constitutional: General: He is not in acute distress. Appearance: He is not ill-appearing. HENT: Head: Normocephalic and atraumatic. Right Ear: Tympanic membrane, ear canal and external ear normal. Left Ear: Tympanic membrane, ear canal and external ear normal. Nose: Nose normal. No congestion or rhinorrhea. Mouth/Throat: Mouth: Mucous membranes are moist. Pharynx: Oropharynx is clear. Eyes: General: No scleral icterus. Extraocular Movements: Extraocular movements intact. Conjunctiva/sclera: Conjunctivae normal. Pupils: Pupils are equal, round, and reactive to light. Neck: Vascular: No carotid bruit. Cardiovascular: Rate and Rhythm: Normal rate and regular rhythm. Pulses: Normal pulses. Heart sounds: Normal heart sounds. No murmur heard. No friction rub. No gallop. Pulmonary: Effort: Pulmonary effort is normal. Breath sounds: Normal breath sounds. No wheezing, rhonchi or rales. Abdominal: General: Bowel sounds are normal. There is no distension. Palpations: Abdomen is soft. There is no mass. Tenderness: There is no abdominal tenderness. There is no right CVA tenderness or left CVA tenderness. Musculoskeletal: General: No swelling or tenderness. Normal range of motion. Cervical back: Normal range of motion and neck supple. Right lower leg: No edema. Left lower leg: No edema. Skin: General: Skin is warm and dry. Coloration: Skin is not jaundiced. Findings: No rash. Neurological: General: No focal deficit present. Mental Status: He is oriented to person, place, and time. Cranial Nerves: No cranial nerve deficit. Sensory: No sensory deficit. Motor: No weakness. Psychiatric: Mood and Affect: Mood normal. Behavior: Behavior normal. Latest Reference Range & Units 05/14/24 08:25 06/04/24 08:26 06/04/24 08:35 Triglycerides <=174 mg/dL 162 Cholesterol <200 mg/dL 129 Non-HDL Cholesterol <=159 mg/dL 93 HDL Cholesterol >39 mg/dL 36 (L) LDL Cholesterol (Direct Measure) <=129 mg/dL 64 SODIUM 135 - 146 mmol/L 139 139 POTASSIUM 3.5 - 5.1 mmol/L 4.6 4.2 CHLORIDE 98 - 107 mmol/L 104 103 CO2 22 - 32 mmol/L 27 27 BUN 6 - 20 mg/dL 16 15 CREATININE 0.6 - 1.2 mg/dL 1.3 (H) 1.2 EGFR >=60 mL/min 58 (L) 63 ANION GAP 7 - 15 mmol/L 8 9 GLUCOSE 70 - 120 mg/dL 131 (H) 130 (H) CALCIUM 8.4 - 10.2 mg/dL 9.6 9.5 Magnesium 1.5 - 2.6 mg/dL 1.8 Protein 6.0 - 8.3 g/dL 6.8 6.9 Estimated Average Glucose <126 mg/dL 146 (H) 148 (H) Hemoglobin A1C 4.0 - 5.6 % 6.7 (H) 6.8 (H) TSH 0.27 - 4.20 uIU/mL 2.37 TSH WITH FREE T4 IF INDICATED Rpt CBC Rpt ! WBC 4.00 - 10.80 K/uL 10.68 RBC 4.50 - 5.25 M/uL 4.51 HGB 14.0 - 16.8 g/dL 13.0 (L) HCT 40.0 - 48.4 % 41.8 MCV 82.0 - 99.5 fL 92.7 MCH 27.0 - 34.0 pg 28.8 MCHC 32.0 - 36.0 g/dL 31.1 RDW 11.5 - 15.5 % 14.9 PLT 140 - 400 K/uL 292 MPV 6.6 - 11.1 fL 11.0 CBC WITH WBC DIFFERENTIAL Rpt ! Absolute Neutrophils 1.80 - 7.70 K/uL 6.86 Absolute Lymphocytes 1.00 - 4.80 K/ul 2.41 Absolute Monocytes 0.00 - 1.10 K/uL 0.89 Absolute Eosinophils 0.00 - 0.70 K/uL 0.43 Absolute Basophils 0.00 - 0.20 K/uL 0.04 IRON SCREEN, INCLUDING TIBC Rpt ! Iron 45 - 176 ug/dL 35 (L) Iron Binding Capacity 250 - 425 ug/dL 380 Transferrin Saturation Percent 15 - 55 % 9 (L) Vitamin B12 232 - 1,245 pg/mL 558 561 CULTURE, BLOOD Rpt CULTURE, URINE, QUANTITATIVE Rpt Albumin 3.8 - 5.0 g/dL 4.3 4.4 AST 10 - 50 U/L 22 18 ALT 10 - 50 U/L 25 22 Alkaline Phosphatase 35 - 130 U/L 57 52 Bilirubin, Total <=1.2 mg/dL 1.0 0.8 PSA <4.10 ng/mL 0.34 Color, Urine Colorless, Light Yellow, Yellow, Dark Yellow Yellow Clarity, Urine Clear Clear Glucose, Urine Negative mg/dL Negative Bilirubin, Urine Negative Negative Ketone, Urine Negative mg/dL Negative Specific [place], Urine 1.003 - 1.030 1.031 (H) Blood, Urine Negative Negative pH, Urine 5.0 - 7.5 Units 5.5 Protein, Urine Negative mg/dL Trace ! Urobilinogen, Urine Normal mg/dL Normal Nitrite, Urine Negative Negative Esterase, Urine Negative Negative Comment, Urine SEE REPORT Albumin / Creatinine Ratio, Urine <30 mg/g Creat 18 Albumin, Random Urine mg/dL 3.00 Creatinine, Random Urine mg/dL 167 (L): Data is abnormally low (H): Data is abnormally high !: Data is abnormal Rpt: View report in Results Review for more information ASSESSMENT/PLAN: Chronic fatigue (Primary) Aneurysm of ascending aorta without rupture (HCC) Chronic kidney disease, stage 3a (HCC) Dilated aortic root (HCC) HTN, goal below 140/90 Type 2 diabetes mellitus with stage 3a chronic kidney disease, without long-term current use of insulin (HCC) Post-nasal drip - Montelukast Sodium 10 MG Oral Tablet (Singulair); Take 1 Tablet by mouth in the morning. Iron deficiency anemia, unspecified iron deficiency anemia type - CBC WITH WBC DIFFERENTIAL; Future; Expected date: 09/18/2024 - IRON SCREEN, INCLUDING TIBC; Future; Expected date: 09/18/2024 - FERRITIN; Future; Expected date: 09/18/2024 Plan: Patient presents office for follow-up symptoms of fatigue and chills. No further chills. Fatigue still present but slightly better. Suspect this may be multifactorial. Could be in part due to mild iron-deficiency found on recent labs. Also still wonder if he may be on too much blood pressure medications Recommend continue iron supplementation/vitamin-C daily for now. Just started a few days ago. Wouldlike to repeat CBC, iron panel, ferritin in another 6-8 weeks to recheck. Continue current blood pressure regimen of amlodipine 10 mg daily, lisinopril 40 mg daily, metoprolol succinate 100 mg a.m., 75 mg p.m.. Will not make any further changes at this time. Defer to Cardiology. Patient notes had difficult to control hypertension in the past so would not want to complicate this At end of visit patient notes some symptoms of possible chronic postnasal drainage. Seems to be worse in the morning. No current evidence of active respiratory infection. Will do trial of Singulair 10 mg nightly. Counseled on common side effects which to monitor Patient/ do not seem to note any obvious signs/symptoms of KORTNEY in regards to fatigue. Continue other meds/management Follow Up: Return in about 3 months (around 09/18/2024), or if symptoms worsen or fail to improve, for Return with Physician. | For: Return with Physician | Check-out note: 2-3 month follow up Repeat CBC, Iron prior I spent a total of 40-54 minutes (exact time 45 mins) on the date of service in preparation, delivery, and documentation of the care provided to Clovis Bradford excluding any time spent in the performance of separately billed services or time spent by another provider/QHP. Wesley Leary DO documented in this encounter Nursing Notes * Nicolle Sampson CMA - 06/18/2024 4:02 PM EST Clovis Bradford presents for recheck.He denies any new concerns, would like to discuss blood pressure being low recently. Medications & HM reviewed. documented in this encounter Plan of Treatment Upcoming Encounters Date Type Department Care Team (Late st Contact Info) Description 07/03/2024 8:30 AM EST Office Visit Cardiology, [facility] [address] [place] [address] Washington Ennis DO [address] [place] [address] 09/02/2024 12:00 PM EST Office Visit General Internal Medicine [facility] [address] [facility], [place] [address] Wesley Leary DO [address] [facility], [place] [address] 11/04/2024 10:20 AM EDT Office Visit Family Practice, [address] [place] [address] Osito Alfaro MD [address] [facility] [place] [address] 11/11/2024 9:00 AM EDT Nurse Only Ancillary Department, [address] [place] [address] Osmin, Nurse [facility] [address] [place] [address] 05/21/2025 10:00 AM EDT Imaging Radiology [facility] [address] [place] [address] 05/28/2025 11:00 AM EDT Office Visit Urology Bette Guardado [address] [place] [address] Osmany White Jr., MD [address] [place] [address] Scheduled Orders Name Type Priority Associated Diagnoses Orde r Schedule CBC WITH WBC DIFFERENTIAL Lab Routine Iron deficiency anemia, unspecified iron deficiency anemia type Expected: 09/18/2024 (Approximate), Expires: 06/18/2025 IRON SCREEN, INCLUDING TIBC Lab Routine Iron deficiency anemia, unspecified iron deficiency anemia type Expected: 09/18/2024 (Approximate), Expires: 06/18/2025 FERRITIN Lab Routine Iron deficiency anemia, unspecified iron deficiency anemia type Expected: 09/18/2024 (Approximate), Expires: 06/18/2025 Scheduled Procedures Name Priority Associated Diagnoses Date/Ti me ESOPHAGOGASTRODUODENOSCOPY ( EGD), FLEXIBLE, TRANSORAL, DIAGNOSTIC Recall Gastritis COLONOSCOPY FLEXIBLE PROXIMAL DIAGNOSTIC Recall History of colonic polyps Health Maintenance Due Date Last Done Comments COVID-19 Vaccine ( season) 2024 08/18/2021, 12/27/2020, 12/05/2020 Diabetic Eye Exam 06/18/2024 Postponed from 1966 (Acute Illness) Diabetic Foot Exam 06/21/2024 Postponed from 1966 (Acute Illness) CKD PHOS USE SMARTSET 49465 10/24/2024 10/25/2023 Adult Wellness Visit 11/06/2024 11/07/2023, [...] 024, 06/13/2023, 12/21/2022 CKD HGB USE SMARTSET 33574 06/04/202506/04, 06/04/2024, 10/25/2023, Additional history exists DTap/Tdap [...] this encounter Medical Devices Implanted Type Area 3Rd Pressman Device Identifier Shelf Expiration Date Model / Serial / Lot Kit Accessory Ams 700 [id number] - [id number] Implanted:Qty : 1 on 03/17/2022 [place] Khanna [place] [facility] Scrotum [employer] Dx [id number] 01/19/2027 [id number] / / [id number] Rte, [address], Cx.Lgx 0.5cm - [id number] Implanted:Qty : 1 on 03/17/2022 by Trevor Khanna [place] [facility] [place]A: Penis [employer] : UROLOGY [id number] 10/20/2026 [id number] / / [id number] Cx Precon Ms 21cm Ps 12cm - [id number] Implanted:Qty : 1 on 03/17/2022 by Trevor Khanna [place] [facility] [place]: Penis [employer] [id number] 08/26/2023 [id number] / / [id number] Resvr Conceal [id number] - [id number] Implanted:Qty : 1 on 03/17/2022 by Trevor Khanna [place] [facility] [place]: Pelvis [employer] [id number] 11/17/2023 [id number] / / [id number] documented as of this encounter Visit Diagnoses Diagnosis Chronic fatigue- Primary Other malaise and fatigue Aneurysm of ascending aorta without rupture (HCC) Chronic kidney disease, stage 3a (HCC) Dilated aortic root (HCC) Thoracic aortic ectasia HTN, goal below 140/90 Unspecified essential hypertension Type 2 diabetes mellitus with stage 3a chronic kidney disease, without long-term current use of insulin (HCC) Post-nasal drip Postnasal drip Iron deficiency anemia, unspecified iron deficiency anemia type documented in this encounter Advance Directives * Full Code (Latest Code Status on File) Date Activated Date Inactivated Comments 03/17/2022 10:18 AM 03/18/2022 2:38 PM Question Answer Comments Discussion of Advance Directives occurred with: Not Discussed Care Teams Sleeper Cutter Relationship Specialty Start Date End Date Osito Alfaro MD [address] [place] [address] PCP - General Family Medicine 09/01/21 documented as of this encounter
--- OUTSIDE RECORDS SUMMARY | 2024-08-26 07:37 | External Medical Summary | Summary of Care ---
Author Name Unknown Organization [facility] Address [address] [facility] [place] [address] Phone [phone] Care Team Providers Care Market Superintendent Name Role Phone Osito Alfaro MD Primary Care Provider Reason for Referral * Precert (Diagnostic Medical) (Within 10 days (routine)) - Authorized Specialty Diagnoses / Procedures Referred By Contac t Referred To Contact Cardiac Studies Diagnoses Aneurysm of ascending aorta without rupture (HCC) Procedures ECHO, COMPLETE (2D), TRANS-THORACIC Anton Malone MD [address] [place] [address] Referral ID Status Reason Start Date Expiration Date V isits Requested Visits Authorized [id number] Authorized Precert 06/12/2024 999 999 Reason for Visit * Reason Onset Date Comments Advice 06/10/2024 Encounter Details Date Type Department Care Team (Late st Contact Info) Description 06/10/2024 Telephone Cardiology, [facility] [address] [employer] [address] [place] [address] Anton Malone MD [address] [place] [id number] Advice Allergies Active Allergy Reactions Criticality Noted Date Comments Cat Dander 09/01/2016 Warfarin Hives 09/01/2016 Dust Cough 03/16/2009 Mold Cough 03/16/2009 Other Allergy (See Comments) 04/04/2022 Grass - sneezing/sinus Pollen Cough 03/16/2009 Also grass documented as of this encounter (statuses as of 06/13/2024) Medications Medication Sig Dispensed Refills Start Date [...] 12/25/2023 Active Additional Information Patient taking differently: [id number], Reported on 03/18/2024 Metoprolol Succinate ER 100 MG Oral Tablet Extended Release 24 Hour (toPROL XL)Indications:Aneu rysm of ascending aorta without rupture (HCC),HTN, goal [...] 90 Tablet 2 03/31/2024 Active amLODIPine Besylate 10 MG Oral Tablet (Norvasc)Indication s:HTN, goal below 140/90 Take 1 Tablet by mouth in the morning. 90 Tablet 3 04/30/2024 Active Azelastine HCl 0.1 % Nasal Solution (Astelin)Indication s:Chronic rhinitis Administer 1 Eola into nostril in the morning and 1 Eola before bedtime. 90 mL 3 04/30/2024 Active Lisinopril 40 MG Oral TabletIndications:H TN, goal below 140/90 Take 1 Tablet by mouth in the morning. 90 Tablet 3 04/30/2024 Active Amoxicillin-Pot Clavulanate 875-125 MG Oral Tablet (Augmentin) Take 1 Tablet by mouth in the morning and 1 Tablet at noon and 1 Tablet before bedtime. 05/24/2024 Active Clindamycin HCl 300 MG Oral Capsule Take 1 Capsule by mouth every 6 hours. 05/24/2024 Active Metoprolol Succinate ER 25 MG Oral Tablet Extended Release 24 Hour (toPROL XL) Take 1 Tablet by mouth at bedtime. 05/24/2024 Active documented as of this encounter (statuses as of 06/13/2024) Active Problems Problem Noted Date Diagnosed Date [...] as of this encounter (statuses as of 06/13/2024) Resolved Problems Problem Noted Date Diagnosed Date [...] as of this encounter (statuses as of 06/13/2024) Immunizations Name Administration Dates Next Due COVID-19 [...] No 11/07/2023 Does the household have a [facility] income? (Household - [...] encounter Miscellaneous Notes * Telephone Encounter - Goldie Rosario CMA - 06/11/2024 12:08 PM EST Echo order signed, please schedule. * Telephone Encounter - Gui Burks OSA - 06/11/2024 9:29 AM EST Called patient, he is aware of the new date and time for the FU on: RETURN CARDIOLOGY at 8:30 AM (30 min)Arrive by 8:15 AM Wednesday July 03, 2024 Appointment Provider:[place] Ennis DO in CARDIOLOGY [facility] * Telephone Encounter - Osito Wilkes PA-C - 06/10/2024 4:58 PM EST In basket coverage Biggest concern remains for infection noting reported symptoms... Agree with reducing metoprolol back to the prior to arrival dosing Refer for resting echocardiography Schedule d sooner appointment for patient Osito Wilkes PA-C Department of Cardiology * Telephone Encounter - Chayo Caldera LPN - 06/10/2024 1:24 PM EST See other note in this encounter. Pt saw pcp on 06/04/24 for this same complaint. Labs completed by PCP including blood cultures Pt hospitalized 05/23- d/t acute swelling of face, celluitis/infection. While in hospital metoprolol was increased to 125mg am and 75mg pm d/t hypertension. Called pt to confirm metoprolol succinate dose. States he is taking Taking 100mg twice daily. Dr. Ruffin's note from 06/04 advised pt to reduce metoprolol succinate to 100mg am and 75mg pm todue to fatigue and chill sensation. Advised pt by phone of PCP 06/04 recommendation, pt agreed to reduce dose. Updated med list. States blood pressure is doing well. Pt is asking for sooner appointment. * Telephone Encounter - Nyasia Bose OSA - 06/10/2024 11:32 AM EST Person calling: [place] Relationship to patient: self Phone/Fax to return call: [phone] Reason for call(brief): advice Pharmacy: [facility] Provider Name:Dr. Malone Detailed message to office:Patient called requesting to speak to Fifi Gil or a nurse as he is having an issue with being extremely cold, he states he feels like ice water is running through his veins and he shakes from being cold. I attempted to reach the nurse line but was unsuccessful. Pleaseadvise. documented in this encounter Plan of Treatment Upcoming Encounters Date Type Department Care Team (Late st Contact Info) Description 06/14/2024 9:45 AM EST Cardiac Studies [address] [address] 06/18/2024 4:00 PM EST Office Visit General Internal Medicine [facility] [address] [facility] [place] [address] Wesley Leary DO [address] [facility] [facility] [place] [address] 07/03/2024 8:30 AM EST Office Visit Cardiology, [facility] [address] [place] [address] [place] Ennis, [address] [place] [address] 11/04/2024 10:20 AM EDT Office Visit [facility] [address] [facility] [place] [address] Osito Alfaro MD [address] [place] [address] 11/11/2024 9:00 AM EDT Nurse Only Ancillary Department, [place] Gaspar [address] [place] [address] [place], Nurse Annual Wellness [address] [place] [address] 05/21/2025 10:00 AM EDT Imaging Radiology [facility] [address] [place] [address] 05/28/2025 11:00 AM EDT Office Visit Urology Bette Guardado [address] [place] [address] Osmany White Jr., MD [address] [place] [address] Scheduled Orders Name Type Priority Associated Diagnoses Orde r Schedule ECHO, COMPLETE (2D), TRANS-THORACIC Echocardiology Routine Aneurysm of ascending aorta without rupture (HCC) Expected: 06/12/2024 (Approximate), Expires: 06/11/2025 Scheduled Procedures Name Priority Associated Diagnoses Date/Ti me ESOPHAGOGASTRODUODENOSCOPY ( EGD), FLEXIBLE, TRANSORAL, DIAGNOSTIC Recall Gastritis COLONOSCOPY FLEXIBLE PROXIMAL DIAGNOSTIC Recall History of colonic polyps Health Maintenance Due Date Last Done Comments COVID-19 Vaccine ( season) 2024 08/18/2021, 12/27/2020, 12/05/2020 Diabetic Eye Exam 06/18/2024 Postponed from 1966 (Acute Illness) Diabetic Foot Exam 06/21/2024 Postponed from 1966 (Acute Illness) CKD PHOS USE SMARTSET 94361 10/24/2024 10/25/2023 Adult Wellness Visit 11/06/2024 11/07/2023, 11/01/19 23 Depression Monitoring 11/06/2024 11/07/2023 GFR 12/03/2024 06/04/2024, 100 03/2024, 10/25/2023, Additional history exists HbA1c 12/03/2024 06/04/2024, 100 03/2024, 10/25/2023, Additional history exists Hepatitis C Screening 04/30/2025 Postpo katiana from 1966 (Patient Declined After Education) Zoster Vaccines (2 of 2) 04/30/2025 10/25/2023 Pos tponed from 12/20/2023 (Patient Declined After Education) Albumin/Creatinine Ratio 05/14/2025 024, 06/13/2023, 12/21/2022 CKD HGB USE SMARTSET 33355 06/04/202506/04, 06/04/2024, 10/25/2023, Additional history exists DTap/Tdap [...] this encounter Medical Devices Implanted Type Area Canoe Builder Device Identifier Shelf Expiration Date Model / Serial / Lot Kit Accessory Ams 700 [id number] - [id number] Implanted:Qty : 1 on 03/17/2022 by Trevor Khanna MD at [place] [facility] N/A: Scrot [employer] [id number] 01/19/2027 [id number] / / [id number] Rte, Krystyna, Cx.Lgx 0.5cm - [id number] Implanted:Qty : 1 on 03/17/2022 by Trevor Khanna MD at [place] [facility] N/A: Penis [employer] : UROLOGY [id number] 10/20/2026 [id number] / / [id number] Cx Precon Ms 21cm Ps 12cm - [id number] Implanted:Qty : 1 on 03/17/2022 by Trevor Khanna MD at [place] [facility] N/A: Penis [employer] [id number] 08/26/2023 [id number] / / [id number] Resvr Conceal [id number] - [id number] Implanted:Qty : 1 on 03/17/2022 by Trevor Khanna MD at [place] [facility] N/A: Pelvis [employer] [id number] 11/17/2023 [id number] / / [id number] documented as of this encounter Visit Diagnoses Diagnosis Aneurysm of ascending aorta without rupture (HCC)- Primary documented in this encounter Advance Directives * Full Code (Latest Code Status on File) Date Activated Date Inactivated Comments 03/17/2022 10:18 AM 03/18/2022 2:38 PM Question Answer Comments Discussion of Advance Directives occurred with: Not Discussed Care Teams Market Superintendent Relationship Specialty Start Date End Date Osito Alfaro MD [address] [place] [address] PCP - General Family Medicine 09/01/21 documented as of this encounter
--- OUTSIDE RECORDS SUMMARY | 2024-08-26 07:37 | External Medical Summary ---
Author Name Unknown Address Unknown Organization [id number]:[facility]ATORY [facility] [place] [address] [place] [address] Laboratory Report Ordering Provider Test Date Status MINESH SALGADO 06/04/2024 08:35:40 Final Observation Date Value Abnormality Reference (Units ) Status Vitamin B12 06/04/2024 08:35:40 [phone] (pg/mL) Final Performing Location LABORATORY [facility] - [address] [place] [address]
--- OUTSIDE RECORDS SUMMARY | 2024-08-26 07:37 | External Medical Summary | Summary of Care ---
Author Name Unknown Organization [facility] Address [address] [place] [address] Phone [phone] Care Team Providers Care Energy Specialist Name Role Phone Osito Alfaro MD Primary Care Provider [phone] Reason for Visit * Reason Comments Outpatient Testing Encounter Details Date Type Department Care Team (Late st Contact Info) Description 06/04/2024 8:30 AM EDT Laboratory Laboratory, [facility] [address] [place] [facility] [place] [id number] [facility] Laboratory [address] [place] [address] Chills; Fatigue, unspecified type Allergies Active Allergy Reactions Criticality Noted Date Comments Cat Dander 09/01/2016 Warfarin Hives 09/01/2016 Dust Cough 03/16/2009 Mold Cough 03/16/2009 Other Allergy (See Comments) 04/04/2022 Grass - sneezing/sinus Pollen Cough 03/16/2009 Also grass documented as of this encounter (statuses as of 06/04/2024) Medications Medication Sig Dispensed Refills Start Date End Date Status LORATADINE 10 MG PO CAPS Take by mouth at bedtime. Active CENTRUM SILVER PO TABS daily Active Melatonin 10 MG Oral Tablet Take 1 Tablet by mouth at bedtime. 09/23/2021 Active metFORMIN HCl ER 500 MG Oral Tablet Extended Release 24 Hour (Glucophage XR)Indications:DM type 2, goal HbA1c < 7.5% ([facility]) Take 2 tabs with breakfast daily. First 2 weeks- take 1 tab daily 180 Tablet 3 10/01/2022 Active Rosuvastatin Calcium 10 MG Oral Tablet (Crestor)Indication s:Dyslipidemia, goal LDL below 70 TAKE 1 TABLET BY MOUTH ONCE DAILY IN THE EVENING 90 Tablet 3 12/25/2023 Active Additional Information Patient taking differently: [id number], Reported on 03/18/2024 Metoprolol Succinate ER 100 [...] Nasal Solution (Astelin)Indication s:Chronic rhinitis Administer 1 Sterling into nostril in the morning and 1 Sterling before bedtime. 90 mL 3 04/30/2024 Active [...] as of this encounter (statuses as of 06/04/2024) Active Problems Problem Noted Date Diagnosed Date [...] as of this encounter (statuses as of 06/04/2024) Resolved Problems Problem Noted Date Diagnosed Date [...] as of this encounter (statuses as of 06/04/2024) Immunizations Name Administration Dates Next Due COVID-19 mRNA, LNP-s, No Pre serve, 2-Dose Series (Minutta) 08/18/2021 Pneumococcal Conjugate Vacc, 13 Valent (Prevnar) [...] PM EST Office Visit General Internal Medicine [facility] [address] [place] [address] Wseley Leary DO [address] [place] [address] 07/16/2024 2:30 PM EST Office Visit Cardiology, [facility] [address] [facility] [place] [address] Fifi Gil CRNP [address] [facility] [place] [address] 11/04/2024 10:20 AM EDT Office Visit Family Practice, [place] [address] [place] [address] Osito Alfaro MD [address] [place] [address] 11/11/2024 9:00 AM EDT Nurse Only Ancillary Department, [place] [address] [place] [address] [facility], Nurse Annual Wellness [address] [place] [address] 05/21/2025 10:00 AM EDT Imaging Radiology [facility] [address] [facility] [place] [address] 05/28/2025 11:00 AM EDT Office Visit Urology Bette Guardado [address] [place] [address] [place] [address] Osmany White Jr., MD [address] [place] [address] Pending Results Name Type Priority Associated Diagnoses Date /Time URINALYSIS, REFLEX TO MICROSCOPIC Lab Routine Chills Fatigue, unspecified type 06/04/2024 8:26 AM EDT COMPREHENSIVE METABOLIC PANEL Lab Routine Chills Fatigue, unspecified type 06/04/2024 8:35 AM EDT CBC WITH WBC DIFFERENTIAL Lab Routine Chills Fatigue, unspecified type 06/04/2024 8:35 AM EDT HEMOGLOBIN A1C Lab Routine Chills Fatigue, unspecified type 06/04/2024 8:35 AM EDT TSH WITH FREE T4 IF INDICATED Lab Routine Chills Fatigue, unspecified type 06/04/2024 8:35 AM EDT IRON SCREEN, INCLUDING TIBC Lab Routine Chills Fatigue, unspecified type 06/04/2024 8:35 AM EDT VITAMIN B12 Lab Routine Chills Fatigue, unspecified type 06/04/2024 8:35 AM EDT CULTURE, BLOOD Lab Routine Chills Fatigue, unspecified type 06/04/2024 8:35 AM EDT CBC Lab Routine Chills Fatigue, unspecified type 06/04/2024 8:35 AM EDT DIFFERENTIAL, AUTOMATED Lab Routine Chills Fatigue, unspecified type 06/04/2024 8:35 AM EDT Scheduled Procedures Name Priority Associated [...] 1968 (Acute Illness) CKD HGB USE SMARTSET 88330 10/24/202410/24, 09/20/2022, 09/20/2022, Additional history exists CKD PHOS USE SMARTSET 37114 10/24/2024 10/25/2023 Adult Wellness Visit 11/06/2024 11/07/2023, 11/01/19 23 Depression Monitoring 11/06/2024 11/07/2023 GFR 11/12/2024 05/14/2024, 032 , 06/13/2023, Additional history exists HbA1c 11/12/2024 05/14/2024, 032 , 06/13/2023, Additional history exists Hepatitis C Screening [...] this encounter Medical Devices Implanted Type Area Ground Crew Supervisor Device Identifier Shelf Expiration Date Model / Serial / Lot Kit Accessory Ams 700 [id number] - [id number] Implanted:Qty : 1 on 03/17/2022 by Trevor Khanna MD at OR [facility] N/A: Scrotum Cmed [id number] 01/19/2027 [id number] / / [id number] Rte, Snapcone, Cx.Lgx 0.5cm - [id number] Implanted:Qty : 1 on 03/17/2022 by Trevor Khanna MD at OR [facility] N/A: Penis [employer] : UROLOGY [id number] 10/20/2026 [id number] / / [id number] Cx Precon Ms 21cm Ps 12cm - [id number] Implanted:Qty : 1 on 03/17/2022 by Trevor Khanna MD at OR [facility] N/A: Penis Cmed [id number] 08/26/2023 [id number] / / [id number] Resvr Conceal [id number] - [id number] Implanted:Qty : 1 on 03/17/2022 by Trevor Khanna MD at OR [facility] N/A: Pelvis Cmed [id number] 11/17/2023 [id number] documented as of this encounter Visit Diagnoses Diagnosis Chills Chills (without fever) Fatigue, unspecified type documented in this encounter Advance Directives * Full Code (Latest Code Status on File) Date Activated Date Inactivated Comments 03/17/2022 10:18 AM 03/18/2022 2:38 PM Question Answer Comments Discussion of Advance Directives occurred with: Not Discussed Care Teams Energy Specialist Relationship Specialty Start Date End Date Osito Alfaro MD [address] [place] [address] PCP - General Family Medicine 09/01/21 documented as of this encounter
--- OUTSIDE RECORDS SUMMARY | 2024-08-26 07:37 | External Medical Summary ---
Author Name Unknown Address Unknown Organization K01:[place] [facility] [place] [address] [place] [address] Laboratory Report Ordering Provider Test Date Status MINESH SALGADO 06/04/2024 08:35:40 Final Observation Date Value Abnormality Reference (Units ) Status BUN 06/04/2024 08:35:40 15 6-20 (mg/dL) Final Creatinine 06/04/2024 08:35:40 1.2 0.6-1.2 (mg/dL) Final Glomerular filtration rate/1.73 sq M.predicted [Volume Rate/Area] in Serum, Plasma or Blood by Creatinine-based formula (CKD-EPI) 06/04/2024 08:35:40 63 >=60 (mL/min) Final eGFR is calculated based on the CKD-EPI 2020 equation. Sodium 06/04/2024 08:35:40 139 135-146 (m mol/L) Final Potassium 06/04/2024 08:35:40 4.2 3.5-5.1 (m mol/L) Final Cl 06/04/2024 08:35:40 103 98-107 (mm ol/L) Final CO2 06/04/2024 08:35:40 27 22-32 (mmo l/L) Final Anion gap 06/04/2024 08:35:40 9 7-15 (mmol /L) Final Glucose 06/04/2024 08:35:40 130 Above high normal 70 -120 (mg/dL) Final Albumin 06/04/2024 08:35:40 4.4 3.8-5.0 (g /dL) Final AST (Aspartate aminotransferase) 06/04/2024 08:35:40 18 10-50 (U/L) Fin al Alk Phos 06/04/2024 08:35:40 52 35-130 (U/ L) Final Bilirubin, Total 06/04/2024 08:35:40 0.8 <=1 .2 (mg/dL) Final Calcium 06/04/2024 08:35:40 9.5 8.4-10.2 ( mg/dL) Final Protein 06/04/2024 08:35:40 6.9 6.0-8.3 (g /dL) Final ALT (Alanine aminotransferase) 06/04/2024 08:35:40 22 10-50 (U/L) Berhane wilson Performing Location [place] [facility] [place] [facility] [address] [facility] [address]
--- OUTSIDE RECORDS SUMMARY | 2024-08-26 07:37 | External Medical Summary ---
Author Name Unknown Address Unknown Organization K01:[place] [place] [address] [place] [address] Laboratory Report Ordering Provider Test Date Status MINESH SALGADO 06/04/2024 08:26:58 Final Observation Date Value Abnormality Reference (Units) Status Bacteria identified in Specimen by Culture 06/04/2024 08:26:58 No significant growth Final Test: Culture, Urine, Quanti tative
Specimen Source: Urine, Clean Catch
Specimen Type: Urine
Specimen Date: 06/04/2024825
Result Date: 06/05/2024 1002
Result Status: Final result
Resulting Lab: [facility] [place]
[address]
[place] [address]

CULTURE

No significant growth

null Performing Location [facility] [place] [address] [place] [address]
--- OUTSIDE RECORDS SUMMARY | 2024-08-26 07:37 | External Medical Summary ---
Author Name Unknown Address Unknown Organization K01:LABORATORY [facility] - [facility] [address] [facility] [id number] Laboratory Report Ordering Provider Test Date Status MINESH SALGADO 06/04/2024 08:26:58 Final Observation Date Value Abnormality Reference (Units ) Status Color of Urine by Auto 06/04/2024 08:26:58 Yellow Colorless, Light Yellow, Yellow, Dark Yellow Final Clarity, Urine 06/04/2024 08:26:58 Clear Clear Final Glucose [Mass/volume] in Urine by Automated test strip 06/04/2024 08:26:58 Negative Negative (mg/dL) Final Bilirubin.total [Presence] in Urine by Automated test strip 06/04/2024 08:26:58 Negative Negative Final Ketones [Mass/volume] in Urine by Automated test strip 06/04/2024 08:26:58 Negative Negative (mg/dL) Final Specific gravity, Urine 06/04/2024 08:26:58 1.031 Above high normal 1.003-1.030 Final Hemoglobin [Presence] in Urine by Automated test strip 06/04/2024 08:26:58 Negative Negative Final pH, Urine 06/04/2024 08:26:58 5.5 5.0-7.5 (Units) Final Protein [Mass/volume] in Urine by Automated test strip 06/04/2024 08:26:58 Trace Abnormal Negative (mg/dL) Final Urobilinogen [Mass/volume] in Urine by Automated test strip 06/04/2024 08:26:58 Normal Normal (mg/dL) Final Nitrite [Presence] in Urine by Automated test strip 06/04/2024 08:26:58 Negative Negative Final Leukocyte esterase [Presence] in Urine by Automated test strip 06/04/2024 08:26:58 Negative Negative Final Annotation Comment 06/04/2024 08:26:58 Final Screen negative - Microscopi c not performed. Performing Location LABORATORY [facility] - [address] [facility] [id number]
--- OUTSIDE RECORDS SUMMARY | 2024-08-26 07:37 | External Medical Summary | Summary of Care ---
Author Name Unknown Organization [facility] Address [address] [place] [address] Phone [phone] Care Team Providers Care Geometry Tutor Name Role Phone Osito Alfaro MD Primary Care Provider [phone] Encounter Details Date Type Department Care Team ([facility] st Contact Info) Description 02/27/2024 Telephone Nutrition Services [facility] [address] [place] [address] Osito Alfaro MD [address] [place], [place] [address] [address] Allergies Active Allergy Reactions Criticality Noted Date Comments Cat Dander 09/01/2016 Warfarin Hives 09/01/2016 Dust Cough 03/16/2009 Mold Cough 03/16/2009 Other Allergy (See Comments) 04/04/2022 Grass - sneezing/sinus Pollen Cough 03/16/2009 Also grass documented as of this encounter (statuses as of 05/28/2024) Medications Medication Sig Dispensed Refills Start Date [...] 12/25/2023 Active Additional Information Patient taking differently: [id number], Reported on 03/18/2024 Fluticasone Propionate 50 MCG/ACT Nasal Suspension (Flonase)Indicatio ns:Chronic rhinitis Administer 2 Sprays into each nostril in the morning. 16 g 5 01/31/2024 Active documented as of this encounter (statuses as of 05/28/2024) Active Problems Problem Noted Date Diagnosed Date [...] as of this encounter (statuses as of 05/28/2024) Resolved Problems Problem Noted Date Diagnosed Date [...] as of this encounter (statuses as of 05/28/2024) Immunizations Name Administration Dates Next Due COVID-19 [...] [facility] [place] [address] [facility] [place] [address] Fifi Gil CRNP [address] [place] [address] 11/04/2024 10:20 AM EDT Office Visit [facility] [place] [address] [facility] [id number] Osito Alfaro MD [address] [place] [address] 11/11/2024 9:00 AM EDT Nurse Only Ancillary Department[facility] [place] [address] [facility] [address] [place], Nurse Annual Well[facility] [address] [facility] [address] 05/21/2025 10:00 AM EDT Imaging Radiology [facility] [place] [address] [facility] [place] [address] 05/28/2025 11:00 AM EDT Office Visit Urology Bette Guardado [address] [place] [address] Osmany White Jr., MD [address] [place] [address] Scheduled Procedures Name Priority Associated Diagnoses Date/Ti me ESOPHAGOGASTRODUODENOSCOPY ( EGD), FLEXIBLE, TRANSORAL, DIAGNOSTIC Recall Gastritis COLONOSCOPY FLEXIBLE PROXIMAL DIAGNOSTIC Recall History of colonic polyps Health Maintenance Due Date Last Done Comments COVID-19 Vaccine ( season) 2024 08/18/2021, 12/27/2020, 12/05/2020 Diabetic Eye Exam 06/18/2024 Postponed from 1966 (Acute Illness) Diabetic Foot Exam 06/21/2024 Postponed from 1966 (Acute Illness) CKD HGB USE SMARTSET 80415 10/24/202410/24, 09/20/2022, 09/20/2022, Additional history exists CKD PHOS USE SMARTSET 52259 10/24/2024 10/25/2023 Adult Wellness Visit 11/06/2024 11/07/2023, [...] this encounter Medical Devices Implanted Type Area Lozenge Dough Mixer Device Identifier Shelf Expiration Date Model / Serial / Lot Kit Accessory Ams 700 [id number] - [id number] Implanted:Qty : 1 on 03/17/2022 by Trevor Khanna MD at OR [facility] N/A: Scrotum AppJet [id number] 01/19/2027 [id number] / / [id number] Rte, Snapcone, Cx.Lgx 0.5cm - [id number] Implanted:Qty : 1 on 03/17/2022 by Trevor Khanna MD at OR [facility] N/A: Penis [employer] : UROLOGY [id number] 10/20/2026 [id number] / / [id number] Cx Precon Ms 21cm Ps 12cm - [id number] Implanted:Qty : 1 on 03/17/2022 by Trevor Khanna MD at OR [facility] N/A: Penis [employer] [id number] 08/26/2023 [id number] / / [id number] Resvr Conceal [id number] - [id number] Implanted:Qty : 1 on 03/17/2022 by Trevor Khanna MD at OR [facility] N/A: Pelvis [employer]Jet [id number] 11/17/2023 [id number] / / [id number] documented as of this encounter Additional Health [...] Directives occurred with: Not Discussed Care Teams Geometry Tutor Relationship Specialty Start Date End Date Osito Alfaro MD [address] [place] [address] PCP - General Family Medicine 09/01/21 documented as of this encounter
--- OUTSIDE RECORDS SUMMARY | 2024-08-26 07:37 | External Medical Summary ---
Author Name Unknown Address Unknown Organization [id number]:[facility] [place] [facility] [address] [facility] [place] [address] Laboratory Report Ordering Provider Test Date Status MINESH SALGADO 06/04/2024 08:35:40 Final Observation Date Value Abnormality Reference (Units ) Status WBC, Total 06/04/2024 08:35:40 10.68 4.00-10.80 (K/uL) Final RBC 06/04/2024 08:35:40 4.51 4.50-5.25 (M/uL) Final Hemoglobin 06/04/2024 08:35:40 13.0 Below low normal 14.0-16.8 (g/dL) Final HCT 06/04/2024 08:35:40 41.8 40.0-48.4 (%) Final MCV 06/04/2024 08:35:40 92.7 82.0-99.5 (fL) Final MCH 06/04/2024 08:35:40 28.8 27.0-34.0 (pg) Final MCHC 06/04/2024 08:35:40 31.1 32.0-36.0 (g/dL) Final RDW 06/04/2024 08:35:40 14.9 11.5-15.5 (%) Final Platelets 06/04/2024 08:35:40 292 140-400 (K/uL) Final MPV 06/04/2024 08:35:40 11.0 6.6-11.1 (fL) Final Nucleated erythrocytes/100 leukocytes [Ratio] in Blood by Automated count 06/04/2024 08:35:40 0 <=0 (/100 WBCs) Final Performing Location [facility] [place] [address] [place] [address]
--- OUTSIDE RECORDS SUMMARY | 2024-08-26 07:37 | External Medical Summary ---
Author Name Unknown Address Unknown Organization [id number]:[facility] [place] [address] [place] [address] [place] [address] Laboratory Report Ordering Provider Test Date Status GLADYS SALGADOSUZY 06/04/2024 08:35:40 Final Observation Date Value Abnormality Reference (Units ) Status HbA1C 06/04/2024 08:35:40 6.8 Above high normal 4. 0-5.6 (%) Final The use of HbA1c to monitor glycemic status is based on normal hemoglobin and HbA composition. This test should not be used in patients with abnormal hemoglobin that affects the half life of the red blood cell or the in vivo glycation rates. Glucose, estimated average 06/04/2024 08:35:40 148 Above high normal <126 (mg/dL) Berhane wilson Performing Location [facility] [place] - [address] [place] [address]
--- OUTSIDE RECORDS SUMMARY | 2024-08-26 07:37 | External Medical Summary | Summary of Care ---
Author Name Unknown Organization [facility] Address [address] [place] [address] Phone [phone] Care Team Providers Care Valve Maker Name Role Phone Osito Alfaro MD Primary Care Provider [phone] Reason for Visit * Reason Onset Date Comments Advice 05/23/2024 Admission- antib iotics Encounter Details Date Type Department Care Team (Late st Contact Info) Description 05/23[facility]2024 [facility] [address] [place] [address] Osito Alfaro MD [address] [place] [address] Advice (Admission- antibiotics) Allergies Active Allergy Reactions Criticality Noted Date Comments Cat Dander 09/01/2016 Warfarin Hives 09/01/2016 Dust Cough 03/16/2009 Mold Cough 03/16/2009 Other Allergy (See Comments) 04/04/2022 Grass - sneezing/sinus Pollen Cough 03/16/2009 Also grass documented as of this encounter (statuses as of 05/23/2024) Medications Medication Sig Dispensed Refills Start Date [...] 12/25/2023 Active Additional Information Patient taking differently: [id number], Reported on 03/18/2024 Fluticasone Propionate 50 MCG/ACT [...] Nasal Solution (Astelin)Indicatio ns:Chronic rhinitis Administer 1 Liguori into nostril in the morning and 1 Liguori before bedtime. 90 mL 3 04/30/2024 Active Lisinopril 40 MG Oral TabletIndications: HTN, goal below 140/90 Take 1 Tablet by mouth in the morning. 90 Tablet 3 04/30/2024 Active documented as of this encounter (statuses as of 05/23/2024) Active Problems Problem Noted Date Diagnosed Date [...] as of this encounter (statuses as of 05/23/2024) Resolved Problems Problem Noted Date Diagnosed Date [...] as of this encounter (statuses as of 05/23/2024) Immunizations Name Administration Dates Next Due COVID-19 mRNA, LNP-s, No Pre serve, 2-Dose Series (Finco) 08/18/2021 Pneumococcal Conjugate Vacc, 13 Valent (Prevnar) [...] Telephone Encounter - Osito Alfaro MD - 05/23/2024 3:13 PM EDT I spoke with Pt's . I recommended strongly, he needs to remain in hospital . She noted that thevacation plans were already cancelled. * Telephone Encounter - Helena Asher LPN - 05/23/2024 12:06 PM EDT Was admitted yesterday for sepsis and states he is on a lot of medications; states he should stay for 24-48 hours and he is requesting to leave the hospital. States Dr. Rodas is the only one to release him and is not able to eat and drink due to this. Please advise. Patient would like a call back he is in Room 204 [facility]. * Telephone Encounter - Michael Diallo OSA - 05/23/2024 12:01 PM EDT Pt. Is calling and wants to know if his provider, Osito Alfaro MD Will approve for him to leave the hospital now and will give him medication treatment for his sepsis. He stated that he needs to know right now and wants to get out of there to leave on vacation tomorrow. Please advise. He is in the [facility]. Room 204 Patient is requesting to speak to a nurse at the office. Reason for patient's call: Please see above. Caller was transferred to [place] at the clinic. * Telephone Encounter - Elaine Weber OSA - 05/23/2024 9:30 AM EDT Patient calling farzaneh Madden stating patient had dental surgery yesterday and was taken to [facility] ED last evening and admitted for Sepsis. She states the hospital told her if PCP approvesantibiotics and diabetes medications then he can be discharged. She states they are to leave for vacation tomorrow and would like to still go on vacation. Please advise. - was asking if PCP could call her [phone] Maryanne [place]. documented in this encounter Plan of Treatment Upcoming Encounters Date Type Department Care Team (Late st Contact Info) Description 07/16/2024 2:30 PM EST Office Visit Cardiology, [facility] [address] [facility] [place] [address] Fifi Gil CRNP [address] [facility] [place] [address] 11/04/2024 10:20 AM EDT Office Visit Family Practice, [place] [address] [place] [address] Osito Alfaro MD [address] [place] [address] 11/11/2024 9:00 AM EDT Nurse Only Ancillary Department, [place] [address] [place] [address] [place], Nurse Annual Wellness [address] [place] [address] 05/21/2025 10:00 AM EDT Imaging Radiology [facility] [address] [facility] [place] [address] 05/28/2025 11:00 AM EDT Office Visit Urology Bette Guardado [address] [place] [address] Osmany White Jr., MD [address] [place] [address] Scheduled Procedures Name Priority Associated Diagnoses Date/Ti me ESOPHAGOGASTRODUODENOSCOPY ( EGD), FLEXIBLE, TRANSORAL, DIAGNOSTIC Recall Gastritis COLONOSCOPY FLEXIBLE PROXIMAL DIAGNOSTIC Recall History of colonic polyps Health Maintenance Due Date Last Done Comments COVID-19 Vaccine ( season) 2024 08/18/2021 Diabetic Eye Exam 06/18/2024 Postponed from 1966 (Acute Illness) Diabetic Foot Exam 06/21/2024 Postponed from 1966 (Acute Illness) CKD HGB USE SMARTSET 93097 10/24/202410/244, 09/20/2022, 09/20/2022, Additional history exists CKD PHOS USE SMARTSET 51384 10/24/2024 10/25/2023 Adult Wellness Visit 11/06/2024 11/07/2023, [...] this encounter Medical Devices Implanted Type Area Quilter Fixer Device Identifier Shelf Expiration Date Model / Serial / Lot Kit Accessory Ams 700 [id number] - [id number] Implanted:Qty : 1 on 03/17/2022 by Trevor Khanna MD at OR [facility] N/A: Scrotum [employer] [id number] 01/19/2027 [id number] / / [id number] Rte, [place], Cx.Lgx 0.5cm - [id number] Implanted:Qty : 1 on 03/17/2022 by Trevor Khanna MD at OR [facility] N/A: Penis [employer] : UROLOGY [id number] 10/20/2026 [id number] / / [id number] Cx Precon Ms 21cm Ps 12cm - [id number] Implanted:Qty : 1 on 03/17/2022 by Trevor Khanna MD at OR [facility] N/A: Penis [employer] [id number] 08/26/2023 [id number] / / [id number] Resvr Conceal [id number] - [id number] Implanted:Qty : 1 on 03/17/2022 by Trevor Khanna MD at OR [facility] N/A: Pelvis [employer] [id number] 11/17/2023 [id number] / / [id number] documented as of this encounter Advance Directives * Full Code (Latest Code Status on File) Date Activated Date Inactivated Comments 03/17/2022 10:18 AM 03/18/2022 2:38 PM Question Answer Comments Discussion of Advance Directives occurred with: Not Discussed Care Teams Valve Maker Relationship Specialty Start Date End Date Osito Alfaro MD [address] [place] [address] PCP - General Family Medicine 09/01/21 documented as of this encounter
--- OUTSIDE RECORDS SUMMARY | 2024-08-26 07:37 | External Medical Summary | Summary of Care ---
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 Name Role Phone Osito Alfaro MD Primary Care Provider [phone] Reason for Visit * Reason Comments Other Patient states he miller s coldness feeling in veins from head to toe and happens twice a day [facility] sepsis Encounter Details Date Type Department Care Team (Late st Contact Info) Description 06/04/2024 7:00 AM EDT Office Visit General Internal Medicine [facility] [address] [place] [address] Wesley Leary [address] [place] [address] Chills*; Fatigue, unspecified type; Type 2 diabetes mellitus with stage 3a chronic kidney disease, without long-term current use of insulin ([facility]); Dyslipidemia, goal LDL below 70; HTN, goal below 140/90; Chronic kidney disease, stage 3a ([facility]) Allergies Active Allergy Reactions Criticality [...] 12/25/2023 Active Additional Information Patient taking differently: [id number], Reported on 03/18/2024 Metoprolol Succinate ER 100 MG Oral Tablet Extended Release 24 Hour (toPROL XL)Indications:An eurysm of ascending aorta without rupture (HCC),HTN, goal [...] Active amLODIPine Besylate 10 MG Oral Tablet (Norvasc)Indicati ons:HTN, goal below 140/90 Take 1 Tablet by mouth in the morning. 90 Tablet 3 04/30/2024 Active Azelastine HCl 0.1 % Nasal Solution (Astelin)Indicati ons:Chronic rhinitis Administer 1 Cocolalla into nostril in the morning and 1 Cocolalla before bedtime. 90 mL 3 04/30/2024 Active Lisinopril 40 MG Oral TabletIndications :HTN, goal below 140/90 Take 1 Tablet by [...] Tablet by mouth at bedtime. 05/24/2024 Active Fluticasone Propionate 50 MCG/ACT Nasal Suspension (Flonase)Indicati ons:Chronic rhinitis Administer 2 Sprays into each nostril in the morning. 16 g 5 01/31/2024 Discontinue d(Patient preference/ discontinua tion) amLODIPine Besylate 5 MG Oral Tablet (Norvasc) Take 2 Tablets by mouth in the morning. Once daily. 04/09/2024 Discontinue d(Medicatio n List Clean Up) documented as of this encounter (statuses as [...] Sign Reading Time Taken Comments Blood Pressure 122/78 06/04/2024 7:09 AM EDT Pulse 64 06/04/2024 7:09 AM EDT Temperature 36.7 C (98.1 F) 06/04/2024 7:09 AM ED T Respiratory Rate 16 06/04/2024 7:09 AM EDT Oxygen Saturation - - Inhaled Oxygen Concentration - - Weight 105.6 kg (232 lb 12.8 oz) 06/04/2024 7:09 AM EDT Height - - Body Mass Index 34.38 05/08/2024 8:20 AM EDT documented in this [...] as of this encounter Progress Notes * Wesley Leary, - 06/04/2024 7:11 AM EDT Subjective Clovis Bradford is a 74 year old male. Chief Complaint Patient presents with Other Patient states he has coldness feeling in veins from head to toe and happens twice a day [facility] sepsis Text in this note was generated using an ambient documentation service. I discussed the use of a device to record and summarize our discussion today. All persons present during the encounter consented to its use. HPI: History of Present Illness Patient presents to office with evaluation of what he describes as chills. Have been going on for the past 2 weeks or so. States will get 1 of these episodes twice a day. Usually occurs when he is resting, either watching TV or at his computer. Never related to exertion or stress. Describes a chill sensation. Then describes sensation that he has "ice or bubbles" in his veins from head to toe. Noobvious palliating or exacerbating affects. No fevers. No rigors. No chest pain, shortness of breath, palpitations. May be some slight dizziness but no lightheadedness or syncopal episodes. No tremorseizure activity. No GI symptoms. No acute urinary symptoms such as dysuria, hematuria or flank pain Patient was recently hospitalized at [facility] from 05/23 to 05/24/2024 for possible facial infection. Patient had previously had dental procedure done. Appeared to be removal/replacement of felt dental implant. Was noted that he had a right maxillary sinus opening during this. This was repaired. The next day noted acute swelling of the right face. Was found to be in likely sepsis from facial cellulitis/odontogenic infection. Was placed on Zosyn. Imaging showed some subcutaneous emphysema of the face neck and upper chest. This gradually improved throughout the hospital stay. Was transitioned to amoxicillin. Was seen by oral maxillofacial surgeon who recommended no surgical intervention at this time. ID was consulted which recommended Augmentin. States has had no further facial swelling. No further pain in the The patient's spouse reports that the patient has been sleeping excessively, raising a concern about possible sleep apnea. The patient does not report any cessation of breathing during sleep but doesreport frequent nocturnal urination. does note occasional snoring. Patient does state that could nap during the day even if feels like slept through the night. Is unsure if he would like sleep study ordered at this time. States did have 1 remotely in the past The patient's blood pressure medication (metoprolol) was increased during a recent hospital stay due to high blood pressure readings. The patient and spouse express concern about this increase and its potential relation to the patient's current symptoms. Prior to hospitalization was prescribed metoprolol succinate 100 mg a.m., 50 mg p.m.. Was noted to be hypertensive in the hospital. Staff there added an additional 25 mg twice daily for total of metoprolol succinate 125 mg a.m., 75 mg p.m. has noted feeling more tired and lack of energy since hospital. Patient's states that blood pressure had been running in the systolic 160 range prior to hospital stay. Currently 120s PMH: Patient Active Problem List Diagnosis Nocturia [...] 0.1 % Nasal Solution (Astelin) Administer 1 Cocolalla into nostril in the morning and 1 Cocolalla before bedtime. 90 mL 3 Lisinopril 40 [...] Take 1 Tablet by mouth at bedtime. Fluticasone Propionate 50 MCG/ACT Nasal Suspension (Flonase) Administer 2 Sprays into each nostril in the morning. (Patient not taking: Reported on 06/04/2024) 16 g 5 No current facility-administered medications for this visit. [...] performed by Padmaja Patel DO at [facility] COLONOSCOPY, DIAGNOSTIC (RECTUM) 03/29/2024 hemorrhoids/mild diverticulosis/radiation proctitis/biopsies show adenomatous polyps/recall 5 years/COLONOSCOPY FLEXIBLE PROXIMAL DIAGNOSTIC performed by Padmaja Patel DO at [facility] EGD, FLEXIBLE, DIAGNOSTIC 03/29/2024 LA grade B reflux esophagitis/gastritis/duodenitis/biopsies mild inflammatory changes/recall 12-18 months/ESOPHAGOGASTRODUODENOSCOPY (EGD), FLEXIBLE, TRANSORAL, DIAGNOSTIC performed by Arleen Patel DO at [facility] INSERT MULTI-COMP PROSTHESIS, PENIS N/A 03/17/2022 INSERT PENILE PROSTHESIS INFLATABLE MULTI COMPONENT performed by Trevor Khanna MD at [facility] OTHER (INFORMATION) bilateral hernia REMOVAL OF TONSILS, [...] level: Not on file Occupational History Occupation: [employer] Employer: [employer] Tobacco Use Smoking status: Never Smokeless tobacco: [...] Stability Do you currently live in a jail or have no steady place to sleep [...] file Review of Systems Constitutional: Positive for chills and fatigue. Negative for diaphoresis and fever. HENT: Negative for congestion, ear pain, facial swelling, sinus pressure, sinus pain, sore throat, tinnitus, trouble swallowing and voice change. Eyes: Negative for photophobia and pain. Respiratory: Negative for cough, shortness of breath and wheezing. Cardiovascular: Negative for chest pain, palpitations and leg swelling. Gastrointestinal: Negative for abdominal distention, abdominal pain, nausea and vomiting. Genitourinary: Negative for dysuria and frequency. Musculoskeletal: Negative for back pain, myalgias and neck stiffness. Skin: Negative for pallor. Neurological: Negative for dizziness, tremors, syncope, speech difficulty, weakness, light-headedness, numbness and headaches. Psychiatric/Behavioral: Negative for sleep disturbance. The patient is not nervous/anxious. Objective BP 122/78 (BP Site: Left Arm, BP Position: Sitting, BP Cuff Size: Large) | Pulse 64 | Temp 36.7 C(98.1 F) (Tympanic) | Resp 16 | Wt 105.6 kg (232 lb 12.8 oz) | BMI 34.38 kg/m | BSA 2.27 m Physical Exam Constitutional: General: He is not in acute distress. Appearance: He is not ill-appearing. HENT: Head: Normocephalic and atraumatic. Right Ear: Tympanic membrane, ear canal and external ear normal. Left Ear: Tympanic membrane, ear canal and external ear normal. Nose: Nose normal. No congestion or rhinorrhea. Comments: No tenderness or swelling noted in the right maxillary area Mouth/Throat: Mouth: Mucous membranes are moist. Pharynx: Oropharynx is clear. Comments: No visible evidence of current odontogenic infection Eyes: General: No scleral icterus. Extraocular Movements: [...] and Affect: Mood normal. Behavior: Behavior normal. ASSESSMENT/PLAN: Chills (Primary) - COMPREHENSIVE METABOLIC PANEL; Future; Expected date: 06/04/2024 - CBC WITH WBC DIFFERENTIAL; Future; Expected date: 06/04/2024 - HEMOGLOBIN A1C; Future; Expected date: 06/04/2024 - TSH WITH FREE T4 IF INDICATED; Future; Expected date: 06/04/2024 - IRON SCREEN, INCLUDING TIBC; Future; Expected date: 06/04/2024 - VITAMIN B12; Future; Expected date: 06/04/2024 - CULTURE, BLOOD; Future; Expected date: 06/04/2024 - URINALYSIS, REFLEX TO MICROSCOPIC; Future; Expected date: 06/04/2024 - CULTURE, URINE, QUANTITATIVE Fatigue, unspecified type - COMPREHENSIVE METABOLIC PANEL; Future; Expected date: 06/04/2024 - CBC WITH WBC DIFFERENTIAL; Future; Expected date: 06/04/2024 - HEMOGLOBIN A1C; Future; Expected date: 06/04/2024 - TSH WITH FREE T4 IF INDICATED; Future; Expected date: 06/04/2024 - IRON SCREEN, INCLUDING TIBC; Future; Expected date: 06/04/2024 - VITAMIN B12; Future; Expected date: 06/04/2024 - CULTURE, BLOOD; Future; Expected date: 06/04/2024 - URINALYSIS, REFLEX TO MICROSCOPIC; Future; Expected date: 06/04/2024 - CULTURE, URINE, QUANTITATIVE Type 2 diabetes mellitus with stage 3a chronic kidney disease, without long-term current use of insulin (HCC) Dyslipidemia, goal LDL below 70 HTN, goal below 140/90 Chronic kidney disease, stage 3a (HCC) : Assessment & Plan Chills - recent hospitalization for sepsis related to facial cellulitis/odontogenic infection that was thought to be related to recent implant replacement Recent dental procedure with subsequent facial swelling, blurred vision, and subcutaneous emphysema. No current signs of infection. -Order blood work including CBC, liver and kidney function, iron and B12 levels. -Order urine and blood cultures to rule out persistent infection. -Follow up in a couple of weeks to reassess condition. Hypertension Recent increase in Metoprolol dosage may be contributing to patient's fatigue and "chill" sensations. -Reduce Metoprolol dosage to 100mg in the morning and 75mg at night. -Monitor blood pressure closely. Keep log for follow-up Possible Sleep Apnea Patient reports excessive daytime sleepiness and frequent nocturnal urination. -Consider referral to sleep medicine specialist for evaluation if blood work results are normal. General Health Maintenance -Encourage reduction of afternoon/evening caffeine intake to potentially reduce nocturnal urination. -Plan to call patient with lab results and discuss next steps. Follow Up: Return in about 2 days (around 06/06/2024), or if symptoms worsen or fail to improve, for Return with Physician. | For: Return with Physician | Check-out note: 2 week follow up Will get labs at [facility] I spent a total of 40-54 minutes (exact time 45 mins) on the date of service in preparation, delivery, and documentation of the care provided to Clovis Bradford excluding any time spent in the performance of separately billed services or time spent by another provider/QHP. Wesley Leary DO documented in this encounter Nursing Notes * Anam Mendieta RN - 06/04/2024 7:11 AM EDT Chief Complaint Patient presents with Other Patient states he has coldness feeling in veins from head to toe and happens twice a day [facility] Follow-Up sepsis documented in this encounter Plan of Treatment Upcoming Encounters Date Type Department Care Team (Late st Contact Info) Description 06/18/2024 4:00 PM EST Office Visit General Internal Medicine [facility] [place] [address] [place] [address] Wesley Leary DO [address] [place] [address] 07/16/2024 2:30 PM EST Office Visit Cardiology, [facility] [address] [facility] [place] [address] Fifi Gil CRNP [address] [facility] [place] [address] 11/04/2024 10:20 AM EDT Office Visit [facility], [place] [address] [facility] [address] Osito Alfaro MD [address] [place] [address] 11/11/2024 9:00 AM EDT Nurse Only Ancillary Department, [place] [address] [facility] [place] [address] [place], Nurse [facility] [address] [place] [address] 05/21/2025 10:00 AM EDT Imaging Radiology [facility] [address] [facility] [place] [address] 05/28/2025 11:00 AM EDT Office Visit Urology [facility]ette Guardado [address] [facility] [address] [place] [address] Osmany White Jr., MD [address] [address] Pending Results Name Type Priority Associated Diagnoses Date /Time COMPREHENSIVE METABOLIC PANEL Lab Routine Chills Fatigue, [...] Fatigue, unspecified type 06/04/2024 8:35 AM EDT URINALYSIS, REFLEX TO MICROSCOPIC Lab Routine Chills Fatigue, unspecified type 06/04/2024 8:26 AM EDT CULTURE, URINE, QUANTITATIVE Lab Routine Chills Fatigue, unspecified type 06/04/2024 8:26 AM EDT Scheduled Orders Name Type Priority Associated Diagnoses Orde r Schedule COMPREHENSIVE METABOLIC PANEL Lab Routine Chills Fatigue, unspecified type Expected: 06/04/2024 (Approximate), Expires: 06/04/2025 CBC WITH WBC DIFFERENTIAL Lab Routine Chills Fatigue, unspecified type Expected: 06/04/2024 (Approximate), Expires: 06/04/2025 HEMOGLOBIN A1C Lab Routine Chills Fatigue, unspecified type Expected: 06/04/2024 (Approximate), Expires: 06/04/2025 TSH WITH FREE T4 IF INDICATED Lab Routine Chills Fatigue, unspecified type Expected: 06/04/2024 (Approximate), Expires: 06/04/2025 IRON SCREEN, INCLUDING TIBC Lab Routine Chills Fatigue, unspecified type Expected: 06/04/2024 (Approximate), Expires: 06/04/2025 VITAMIN B12 Lab Routine Chills Fatigue, unspecified type Expected: 06/04/2024 (Approximate), Expires: 06/04/2025 CULTURE, BLOOD Lab Routine Chills Fatigue, unspecified type Expected: 06/04/2024 (Approximate), Expires: 06/04/2025 URINALYSIS, REFLEX TO MICROSCOPIC Lab Routine Chills Fatigue, unspecified type Expected: 06/04/2024, Expires: 06/04/2025 Scheduled Procedures Name Priority Associated Diagnoses Date/Ti me ESOPHAGOGASTRODUODENOSCOPY ( EGD), FLEXIBLE, TRANSORAL, DIAGNOSTIC Recall Gastritis COLONOSCOPY FLEXIBLE PROXIMAL DIAGNOSTIC Recall History of colonic polyps Health Maintenance Due Date Last Done Comments COVID-19 Vaccine ( season) 2024 08/18/2021, 12/27/2020, 12/05/2020 Diabetic Eye Exam 06/18/2024 Postponed from 1966 (Acute Illness) Diabetic Foot Exam 06/21/2024 Postponed from 1966 (Acute Illness) CKD HGB USE SMARTSET 18049 10/24/202410/24, 09/20/2022, 09/20/2022, Additional history exists CKD PHOS USE SMARTSET 95242 10/24/2024 10/25/2023 Adult Wellness Visit 11/06/2024 11/07/2023, 11/01/19 Depression Monitoring 11/06/2024 11/07/2023 GFR 11/12/2024 05/14/2024, [...] this encounter Medical Devices Implanted Type Area Bufferer Device Identifier Shelf Expiration Date Model / Serial / Lot Kit Accessory Ams 700 [id number] - [id number] Implanted:Qty : 1 on 03/17/2022 by Trevor Khanna MD at [place] [facility] N/A: Scrotum Taaz [id number] 01/19/2027 [id number] / / [id number] Rte, Snapcone, Cx.Lgx 0.5cm - [id number] Implanted:Qty : 1 on 03/17/2022 by Trevor Khanna MD at OR [facility] N/A: Penis [employer] : UROLOGY [id number] 10/20/2026 [id number] / / [id number] Cx Precon Ms 21cm Ps 12cm - [id number] Implanted:Qty : 1 on 03/17/2022 by Trevor Khanna MD at OR [facility] N/A: Penis Taaz [id number] 08/26/2023 [id number] / / [id number] Resvr Conceal [id number] - [id number] Implanted:Qty : 1 on 03/17/2022 by Trevor Khanna MD at OR [facility] N/A: Pelvis Taaz [id number] 11/17/2023 [id number] / / [id number] documented as of this encounter Visit Diagnoses Diagnosis Chills- Primary Chills (without fever) Fatigue, unspecified type Type 2 diabetes mellitus with stage 3a chronic kidney disease, without long-term current use of insulin (HCC) Dyslipidemia, goal LDL below 70 Other and unspecified hyperlipidemia HTN, goal below 140/90 Unspecified essential hypertension Chronic kidney disease, stage 3a (HCC) documented in this encounter Advance Directives * Full Code (Latest Code Status on File) Date Activated Date Inactivated Comments 03/17/2022 10:18 AM 03/18/2022 2:38 PM Question Answer Comments Discussion of Advance Directives occurred with: Not Discussed Care Teams 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
--- OUTSIDE RECORDS SUMMARY | 2024-08-26 07:37 | External Medical Summary ---
Author Name Unknown Address Unknown Organization [id number]:LABORATORY [facility] [place] - [address] [place] [address] Laboratory Report Ordering Provider Test Date Status GLADYS SALGADOSUZY 06/04/2024 08:35:40 Final Observation Date Value Abnormality Reference (Units ) Status TSH 06/04/2024 08:35:40 2.37 0.27-4.20 (uIU/mL) Final Performing Location LABORATORY [facility] - [address] [place] [address]
--- OUTSIDE RECORDS SUMMARY | 2024-08-26 07:37 | External Medical Summary ---
Author Name Unknown Address Unknown Organization [id number]:LABORATORY [facility] [place] - [address] [place] [address] Laboratory Report Ordering Provider Test Date Status MINESH SALGADO 06/04/2024 08:35:40 Final Observation Date Value Abnormality Reference (Units ) Status Bacteria identified in Specimen by Culture 06/04/2024 08:35:40 No growth Final Test: Culture, Blood
Sp ecimen Source: Blood, Venous
Specimen Type: Blood
Specimen Date: 06/04/2024 0835
Result Date: 06/09/2024 1301
Result Status: Final result
Resulting Lab: LAB[facility]ATORY [facility]
[address]
[place] [address]

CULTURE

No growth

null Performing Location LABORATORY [facility] - [address] [place] [address]
--- OUTSIDE RECORDS SUMMARY | 2024-08-26 07:37 | External Medical Summary ---
Author Name Unknown Address Unknown Organization [id number]:[facility]ORY [facility] [place] - [address] [place] [address] Laboratory Report Ordering Provider Test Date Status MINESH SALGADO 06/04/2024 08:35:40 Final Observation Date Value Abnormality Reference (Units ) Status Iron 06/04/2024 08:35:40 35 Below low normal 45-176 (ug/dL) Final Iron-binding capacity 06/04/2024 08:35:40 380 250-425 (ug/dL) Final Transferrin Sat % 06/04/2024 08:35:40 9 Below low normal 15-55 (%) Final Performing Location [facility] [place] - [address] [place] [address]
--- OUTSIDE RECORDS SUMMARY | 2024-08-26 07:37 | External Medical Summary ---
Author Name Unknown Address Unknown Organization [id number]:LABORATORY [facility] [place] - [address] [facility] [address] Laboratory Report Ordering Provider Test Date Status MINESH SALGADO 06/04/2024 08:35:40 Final Observation Date Value Abnormality Reference (Units ) Status SYNC LEUKOCYTES IN BLOOD BY AUTOMATED COUNT 06/04/2024 08:35:40 10.68 4.00-10.80 (K/uL) Final Segs 06/04/2024 08:35:40 64.2 40.0-75.0 (%) Final Lymphs % 06/04/2024 08:35:40 22.6 18.0-42.0 (%) Final Monos 06/04/2024 08:35:40 8.3 1.0-11.0 (%) Final Eosinophils 06/04/2024 08:35:40 4.0 0.0-6.0 (%) Final Basos 06/04/2024 08:35:40 0.4 0.0-2.0 (%) Final Immature Granulocyte, Percent 06/04/2024 08:35:40 0.5 0.0-2.0 (%) Final Absolute Segs 06/04/2024 08:35:40 6.86 1.80-7.70 (K/uL) Final Lymphs, absolute 06/04/2024 08:35:40 2.41 1.00-4.80 (K/ul) Final Monos, Abs 06/04/2024 08:35:40 0.89 0.00-1.10 (K/uL) Final Eos, Abs 06/04/2024 08:35:40 0.43 0.00-0.70 (K/uL) Final Basos, Abs 06/04/2024 08:35:40 0.04 0.00-0.20 (K/uL) Final Immature Granulocytes, Number 06/04/2024 08:35:40 0.05 0.00-0.20 (K/uL) Final Performing Location LABORATORY [facility] [place] - [address] [facility] [address]
[2024-08-26 08:01] LABS: Hematocrit (blood only) 44.4 % (42.0-52.0); Hemoglobin 14.6 g/dl (14.0-18.0); Mean Corpuscular Hemoglobin 29.1 pg (25.0-34.0); Mean Corpuscular Hgb Conc 32.9 g/dL (32.0-36.0); Mean Corpuscular Volume 88.6 fL (80.0-100.0); Mean Platelet Volume 10.8 fL (9.4-12.4); Platelet Count 216 K/uL (130-400); RDW Coefficient of Variation 15.3 % (11.5-14.5); RDW Standard Deviation 49.8 fL (36.4-46.3); Red Blood Count 5.01 M/uL (4.70-6.10)
--- NOTE | 2024-08-26 08:02 | Emergency Department Note ---
Impression & Plan Dizziness, Non-ST elevation NC (NSTEMI), Fall from standing, Chest pain ED Provider Note HISTORY OF PRESENT ILLNESS: Patient is a 74-year-old male presenting after a fall from standing. Patient reports that this morning he was cleaning up his bathroom after having an episode of diarrhea, when he stood up and felt lightheaded and fell backwards, striking the back of his head. He denies loss of consciousness. He does state that he is on Eliquis. He denies any chest pain or shortness of breath prior to falling. He reports for the last few months he has been having episodes of diarrhea. He states that he has been feeling lightheaded and dizzy for the last 48 hours. He denies any fevers or chills. He denies any headache or changes in vision since the fall. Denies any numbness or tingling in his extremities since the fall. He is on Eliquis for history of A-fib. He denies any nausea or vomiting. Denies any chest pain or shortness of breath. Denies any recent fevers. He states in the last 48 hours, he has been having to be slow in getting up from a seated position, as he gets very lightheaded and feels like he is going to pass out. He denies any DVT or PE history. Denies any recent fevers. ROS: as above PHYSICAL EXAM: Constitutional: Patient appears in no acute distress. HENT: Head: Normocephalic and atraumatic. Eyes: EOMI, PERRL Mouth/Throat: Mucous membranes moist. Neck: Trachea midline. Neck supple. Cardiovascular: Tachycardic with irregular rhythm. No murmurs, rubs or gallops. Intact distal pulses. Pulmonary/Chest: No respiratory distress. Breath sounds clear and equal bilaterally. No wheezes or rales. Abdominal: Abdomen soft, no tenderness, rebound or guarding. Musculoskeletal: No edema, tenderness or deformity noted. Skin: Warm and dry. No rash, erythema, pallor or cyanosis Psychiatric: Appropriate mood and affect for situation. Neurological: Alert and keenly responsive. CN II-XII grossly intact, moving all extremities equally and fully. MDM: - Vitals signs showed tachycardia - History obtained via patient. History as above. - Chronic conditions affecting care: HTN; GERD; Afib; hx of TIA - Differential diagnoses include, but are not limited to: Acute coronary syndrome; pulmonary embolism; dissection; tension pneumothorax; esophageal rupture; pneumonia - Order placed for continuous cardiac monitoring. At this time, monitor showed rate of 99 bpm with normal sinus rhythm, per my interpretation. - External medical records reviewed. Discharge summary dated 05/24/2024 was reviewed. Patient was admitted that time for severe sepsis and pneumomediastinum secondary to an odontogenic infection. - EKG interpreted by myself showed normal sinus rhythm. Rate tachycardic at 106 bpm. QT 356. No acute ischemic changes. Noted to have an incomplete right bundle branch block. - Laboratory workup interpreted by myself showed leukocytosis (WBC 12.60); normal PT/INR; stable electrolytes; elevated total bilirubin level (1.2); elevated troponin (52.3) - CXR negative for pneumonia, per my interpretation - CT head wo contrast negative for acute pathology - CT cervical spine wo contrast negative for acute pathology. - UA negative for infection - Viral respiratory panel negative. - Repeat troponin risen slightly at 62.7. Repeat EKG obtained at 9:43 AM and interpreted by myself showed normal sinus rhythm. Rate tachycardic at 102 bpm. QT 356. No acute ischemic changes. Noted to have an incomplete right bundle branch block. - Patient complaining of headache in the emergency department and given 1 g IV Tylenol. - Given patient's episodes of lightheadedness and dizziness and elevated troponin, will admit for further cardiac workup. - Patient reportedly had a dilated aortic root on echocardiogram in June 2024. CTA chest was obtained to rule out dissection. - Discussion was had with case management rn about patient's case and need for admission - Hospitalist consulted for admission - Patient admitted to [facility] for further evaluation and management. ASSESSMENT AND PLAN: Diagnosis: Chest pain; dizziness; NSTEMI; fall from standing Plan: Admit Past Med/Surg History Problem List (Updated 08/26/24 @ 10:43 by Melody Tsai MD) Chest pain (Acute) Fall from standing (Acute) Non-ST elevation NC (NSTEMI) (Acute) Dizziness (Acute) Encounter for pre-operative examination GERD (gastroesophageal reflux disease) (Acute) Essential hypertension Medical History Atrial fibrillation Follows with [facility] BPH (benign prostatic hyperplasia) Depression Dilated aortic root Echo 06/2024: Moderately enlarged aortic root, 4.6 cm Enlarged thoracic aorta Echo 06/2024: Proximal ascending thoracic aorta is moderately enlarged, 4.6 cm Environmental allergies GERD (gastroesophageal reflux disease) Hx of sepsis 05/2024- after dental procedures > [facility] admission Hx of transient ischemic attack (TIA) Several years ago (~), no issues since Hypertension Pneumomediastinum Hx 05/2024, [facility] admission Prostate CA 2019 - XRT Restless leg syndrome Per records, patient unsure Surgical History H/O vasectomy History of dental surgery History of hernia surgery x2 History of penile implant Per records History of total left knee replacement Hx of colonoscopy Hx of tonsillectomy Family History Father , age 62 Heart disease Mother , ~70 y/o Heart disease Stroke Social History Smoking Status: Never smoker Second Hand Exposure: No; Do You Dip or Chew Tobacco: No; Hx Alcohol Use: Yes Alcohol type: beer, wine and hard liquor Hx Substance Use: No Preferred Language: Jordanian Communication Ability: Effective Systems Auditor Required: No Beliefs That Will Affect Care: None Current Living Situation: Spouse Current Living Situation Comment: lives with fiance Feels Safe at Home: Yes Assistive Devices: Glasses and Other Allergies Allergies Allergy/AdvReac Type Severity Reaction Status Date / Time animal dander Allergy Intermediate Itchy/Watery Verified 08/05/24 11:13 eyes, Congestion grass pollen Allergy Intermediate Itchy/Watery Verified 08/05/24 11:13 eyes, Congestion mold Allergy Intermediate Congestion Verified 08/05/24 11:13 warfarin [From Coumadin] Allergy Unknown Unknown Verified 08/05/24 11:13 Home Meds Home Medications Medication Instructions Recorded Confirmed loratadine 10 mg tablet (Claritin) 10 mg PO DAILY PRN Allergy Symptoms 09/23/21 08/26/24 melatonin 10 mg tablet 10 mg PO HS 09/23/21 08/26/24 multivitamin 1 tab PO QAM 09/23/21 08/26/24 azelastine 137 mcg (0.1 %) nasal 1 spray intranasal AMHS 05/23/24 08/26/24 spray escitalopram oxalate 10 mg tablet 10 mg PO QAM 05/23/24 08/26/24 (Lexapro) lisinopril 40 mg tablet 40 mg PO QAM 05/23/24 08/26/24 omeprazole 40 mg capsule,delayed 40 mg PO QAM 05/23/24 08/26/24 release rosuvastatin 10 mg tablet (Crestor) 10 mg PO DAILY 05/23/24 08/26/24 metoprolol succinate 100 mg 100 mg PO QAM 08/05/24 08/26/24 tablet,extended release 24 hr albuterol sulfate 90 mcg/actuation 2 puff inhalation Q4H PRN wheezing 08/26/24 08/26/24 aerosol inhaler or dyspnea amlodipine 5 mg tablet 5 mg PO DAILY 08/26/24 08/26/24 apixaban 5 mg tablet (Eliquis) 5 mg PO BID 08/26/24 08/26/24 metoprolol succinate 50 mg 50 mg PO HS 08/26/24 08/26/24 tablet,extended release 24 hr Results & Data (ED) Vital Signs Vital Signs - 24 hr 08/26/24 07:37 08/26/24 07:51 08/26/24 08:05 Temperature 37.0 C Temperature Source Oral Pulse Rate 108 H 107 H 103 H Pulse Rate [Apical] Respiratory Rate 21 19 Respiratory Effort / Characteristics Non-Labored Respiratory Depth Normal Respiratory Pattern Regular Blood Pressure 149/93 H 147/93 H Blood Pressure [Right Arm] Blood Pressure Mean 111 111 Blood Pressure Mean [Right Arm] Pulse Oximetry 94 93 Oxygen Delivery Method Room Air Sepsis Recent Fever Within 48 Hours No Sepsis New/Unexplained Change in Mental Status N/A Sepsis Action Taken by Nursing No Action Required 08/26/24 08:09 08/26/24 08:30 08/26/24 09:00 Temperature Temperature Source Pulse Rate 105 H 107 H Pulse Rate [Apical] 104 H Respiratory Rate 18 19 24 Respiratory Effort / Characteristics Respiratory Depth Normal Respiratory Pattern Blood Pressure 160/89 H 167/102 H Blood Pressure [Right Arm] 147/93 H Blood Pressure Mean 124 131 Blood Pressure Mean [Right Arm] 111 Pulse Oximetry 93 94 92 Oxygen Delivery Method Room Air Sepsis Recent Fever Within 48 Hours Sepsis New/Unexplained Change in Mental Status Sepsis Action Taken by Nursing 08/26/24 09:31 08/26/24 10:00 Temperature Temperature Source Pulse Rate 103 H Pulse Rate [Apical] 98 H Respiratory Rate 23 20 Respiratory Effort / Characteristics Non-Labored Spontaneous Respiratory Depth Normal Respiratory Pattern Regular Blood Pressure 139/84 Blood Pressure [Right Arm] 141/94 H Blood Pressure Mean 110 Blood Pressure Mean [Right Arm] 109 Pulse Oximetry 94 94 Oxygen Delivery Method Room Air Room Air Sepsis Recent Fever Within 48 Hours Sepsis New/Unexplained Change in Mental Status Sepsis Action Taken by Nursing Laboratory Data 08/26/24 07:40 08/26/24 07:40 Lab Results 08/26/24 08/26/24 08/26/24 Range/Units 07:40 07:41 08:05 WBC 12.60 H (4.8-10.8) K/ul RBC 5.01 (4.70-6.10) M/uL Hgb 14.6 (14.0-18.0) g/dl Hct 44.4 (42.0-52.0) % MCV 88.6 (80.0-100.0) fL MCH 29.1 (25.0-34.0) pg MCHC 32.9 (32.0-36.0) g/dL RDW Std Deviation 49.8 H (36.4-46.3) fL RDW Coeff of Carine 15.3 H (11.5-14.5) % Plt Count 216 (130-400) K/uL MPV 10.8 (9.4-12.4) fL Immature Gran % (Auto) 0.5 % Neut % (Auto) 92.5 % Lymph % (Auto) 2.9 % Dubois % (Auto) 4.0 % Eos % (Auto) 0.0 % Baso % (Auto) 0.1 % Neut # (Auto) 11.65 H (1.40-6.50) K/uL Lymph # (Auto) 0.37 L (1.20-3.40) K/uL Dubois # (Auto) 0.51 (0.11-0.59) K/uL Eos # (Auto) 0.00 (0.00-0.50) K/uL Baso # (Auto) 0.01 (0.00-0.20) K/uL Immature Gran # (Auto) 0.06 (0.01-0.20) K/uL Polychromasia 1+ PT 11.4 (9.0-12.0) Seconds INR 1.1 (0.9-1.1) Sodium 135 L (136-145) mmol/L Potassium 4.2 (3.5-5.1) mmol/L Chloride 101 (98-107) mmol/L Carbon Dioxide 26 (21-32) mmol/L Anion Gap 8 (3-11) BUN 13 (6-23) mg/dl Creatinine 1.22 (0.6-1.4) mg/dl Est Cr Clr Drug Dosing 64.9 ml/min eGFR 61.44 BUN/Creatinine Ratio 10.7 (10-20) Glucose 197 H (70-99(Fasting)) mg/dl Calcium 10.0 (8.6-10.3) mg/dl Magnesium 1.7 (1.7-2.4) mg/dl Total Bilirubin 1.2 H (0.2-1.0) mg/dl AST 19 (13-39) U/L ALT 19 (7-52) U/L Alkaline Phosphatase 47 (34-104) U/L Troponin I High Sens 52.3 H* (0-20) pg/ml Total Protein 6.9 (6.0-8.3) gm/dl Albumin 4.2 (3.4-5.0) gm/dl Globulin 2.7 (2.5-4.0) gm/dl Albumin/Globulin Ratio 1.6 (0.9-2) Urine Color Yellow Urine Appearance Clear (Clear) Urine pH 5.0 (4.5-7.5) Ur Specific Vista 1.022 (1.000-1.030) Urine Protein Trace H (Negative) Urine Glucose (UA) Negative (Negative) Urine Ketones Trace H (Negative) Urine Blood Negative (Negative) Urine Nitrite Negative (Negative) Urine Bilirubin Negative (Negative) Urine Urobilinogen Negative (Negative) Ur Leukocyte Esterase Negative (Negative) Urine WBC (Auto) 0-5 (0-5) /hpf Urine RBC (Auto) 0-2 (0-2) /hpf U Hyaline Cast (Auto) 3-5 H (0-2) /lpf U Epithel Cells (Auto) 0-2 (0-2) /hpf Urine Bacteria (Auto) None Seen (None Seen) Adenovirus (PCR) Not Detected (NotDetected) B. pertussis DNA (PCR) Not Detected (NotDetected) B.parapertussis DNA PCR Not Detected (NotDetected) C. pneumoniae DNA (PCR) Not Detected (NotDetected) Coronavirus OC43 (PCR) Not Detected (NotDetected) Coronavirus HKU1 (PCR) Not Detected (NotDetected) Coronavirus 229E (PCR) Not Detected (NotDetected) SARS-CoV-2 (PCR) Not Detected (NotDetected) Coronavirus NL63 (PCR) Not Detected (NotDetected) Human Metapneumovir PCR Not Detected (NotDetected) Influenza Type A (PCR) Not Detected (NotDetected) Influenza Type B (PCR) Not Detected (NotDetected) M. pneumoniae (PCR) Not Detected (NotDetected) Parainfluenza 1 (PCR) Not Detected (NotDetected) Parainfluenza 2 (PCR) Not Detected (NotDetected) Parainfluenza 3 (PCR) Not Detected (NotDetected) Parainfluenza 4 (PCR) Not Detected (NotDetected) RSV (PCR) Not Detected (NotDetected) Entero/Rhino (PCR) Not Detected (NotDetected) 08/26/24 Range/Units 09:23 WBC (4.8-10.8) K/ul RBC (4.70-6.10) M/uL Hgb (14.0-18.0) g/dl Hct (42.0-52.0) % MCV (80.0-100.0) fL MCH (25.0-34.0) pg MCHC (32.0-36.0) g/dL RDW Std Deviation (36.4-46.3) fL RDW Coeff of Carine (11.5-14.5) % Plt Count (130-400) K/uL MPV (9.4-12.4) fL Immature Gran % (Auto) % Neut % (Auto) % Lymph % (Auto) % Dubois % (Auto) % Eos % (Auto) % Baso % (Auto) % Neut # (Auto) (1.40-6.50) K/uL Lymph # (Auto) (1.20-3.40) K/uL Dubois # (Auto) (0.11-0.59) K/uL Eos # (Auto) (0.00-0.50) K/uL Baso # (Auto) (0.00-0.20) K/uL Immature Gran # (Auto) (0.01-0.20) K/uL Polychromasia PT (9.0-12.0) Seconds INR (0.9-1.1) Sodium (136-145) mmol/L Potassium (3.5-5.1) mmol/L Chloride (98-107) mmol/L Carbon Dioxide (21-32) mmol/L Anion Gap (3-11) BUN (6-23) mg/dl Creatinine (0.6-1.4) mg/dl Est Cr Clr Drug Dosing ml/min eGFR BUN/Creatinine Ratio (10-20) Glucose (70-99(Fasting)) mg/dl Calcium (8.6-10.3) mg/dl Magnesium (1.7-2.4) mg/dl Total Bilirubin (0.2-1.0) mg/dl AST (13-39) U/L ALT (7-52) U/L Alkaline Phosphatase (34-104) U/L Troponin I High Sens 62.7 H* D (0-20) pg/ml Total Protein (6.0-8.3) gm/dl Albumin (3.4-5.0) gm/dl Globulin (2.5-4.0) gm/dl Albumin/Globulin Ratio (0.9-2) Urine Color Urine Appearance (Clear) Urine pH (4.5-7.5) Ur Specific Vista (1.000-1.030) Urine Protein (Negative) Urine Glucose (UA) (Negative) Urine Ketones (Negative) Urine Blood (Negative) Urine Nitrite (Negative) Urine Bilirubin (Negative) Urine Urobilinogen (Negative) Ur Leukocyte Esterase (Negative) Urine WBC (Auto) (0-5) /hpf Urine RBC (Auto) (0-2) /hpf U Hyaline Cast (Auto) (0-2) /lpf U Epithel Cells (Auto) (0-2) /hpf Urine Bacteria (Auto) (None Seen) Adenovirus (PCR) (NotDetected) B. pertussis DNA (PCR) (NotDetected) B.parapertussis DNA PCR (NotDetected) C. pneumoniae DNA (PCR) (NotDetected) Coronavirus OC43 (PCR) (NotDetected) Coronavirus HKU1 (PCR) (NotDetected) Coronavirus 229E (PCR) (NotDetected) SARS-CoV-2 (PCR) (NotDetected) Coronavirus NL63 (PCR) (NotDetected) Human Metapneumovir PCR (NotDetected) Influenza Type A (PCR) (NotDetected) Influenza Type B (PCR) (NotDetected) M. pneumoniae (PCR) (NotDetected) Parainfluenza 1 (PCR) (NotDetected) Parainfluenza 2 (PCR) (NotDetected) Parainfluenza 3 (PCR) (NotDetected) Parainfluenza 4 (PCR) (NotDetected) RSV (PCR) (NotDetected) Entero/Rhino (PCR) (NotDetected) Administered Medications Discontinued Medications Acetaminophen (Ofirmev) 1,000 mg in 100 mls @ 400 mls/hr IV NOW STA Stop: 08/26/24 10:02 Last Admin: 08/26/24 10:21 Dose: 400 mls/hr Documented By: [facility] Imaging Data Radiologist's Impression: Cervical Spine CT 08/26/24 07:38 CT OF THE CERVICAL SPINE WITHOUT CONTRAST CLINICAL HISTORY: fall from standing; struck head on eliquis COMPARISON STUDY: CT of the neck May 23, 2024. CTA of the neck May 09, 2022. TECHNIQUE: Helical axial images of the cervical spine were obtained without IV contrast. Sagittal and coronal reconstructions were viewed. Automated exposure control was utilized for the study. A dose lowering technique was utilized adhering to the principles of ALARA. FINDINGS: Reversal of the cervical lordosis is unchanged as is mild anterolisthesis of C2 on C3. There are no acute cervical spine fractures. Extensive degenerative changes at the C1-C2 articulation are again noted. There is moderate to severe multilevel disc space narrowing, endplate osteophytosis and facet arthrosis within the cervical spine. No prevertebral edema. Facet joints are intact. Central canal and neural foramen are suboptimally assessed given CT technique. IMPRESSION: 1. No acute cervical spine fracture or subluxation. 2. Moderate to severe multilevel degenerative disc disease and facet arthrosis within the cervical spine. ACT 112: Negative or not required by law. Electronically signed by: Vamsi Hernandez M.D. 08/26/2024 8:[address] 08/26/24 07:38 CT head/brain wo con CLINICAL HISTORY: fall from standing; struck head on eliquis Technique: Contiguous axial CT images of the head were acquired from the base of the skull to the vertex without intravenous contrast administration. Images were viewed in brain, subdural and bone windows. Automated dose lowering techniques and/or adjustment according to patient size were utilized for this exam. Comparison: Comparison is made to CT head 05/23/2024 Findings: Areas of decreased attenuation are present in the periventricular and subcortical white matter bilaterally consistent with small vessel ischemic disease. Generalized cerebral atrophy with commensurate enlargement of the ventricles, sulci, and cisterns is also present. There is no acute intracranial hemorrhage or evidence of acute territorial infarction. No shift of the midline structures, mass effect, or extra-axial abnormalities are shown. Atherosclerotic calcifications are present in the intracranial segments of the internal carotid arteries. Imaged portions of the paranasal sinuses and mastoid air cells are clear. The orbits appear normal. There are no acute fractures of the calvaria or scalp swelling. Impression: No acute intracranial hemorrhage, no evidence of acute territorial infarction or other acute intracranial disease process. ACT 112: Negative or not required by law. Electronically signed by: Richard Kitchen M.D. 08/26/2024 8:10 AM Discharge Plan Visit Data Chief Complaint: Fall ED Provider: Melody Tsai Discharge Problem: Dizziness, Non-ST elevation NC (NSTEMI), Fall from standing, Chest pain Forms Stand Alone Forms: [facility] [employer] Prescriptions Prescriptions: No Action multivitamin Tablet 1 tab PO QAM melatonin 10 mg Tablet 10 mg PO HS loratadine [Claritin] 10 mg Tablet 10 mg PO DAILY PRN (Reason: Allergy Symptoms) metoprolol succinate 100 mg tablet extended release 24 hr 100 mg PO QAM Rx Instructions: 100mg QAM then 50mg QPM lisinopril 40 mg tablet 40 mg PO QAM omeprazole 40 mg capsule,delayed release(DR/EC) 40 mg PO QAM escitalopram oxalate [Lexapro] 10 mg tablet 10 mg PO QAM rosuvastatin [Crestor] 10 mg tablet 10 mg PO DAILY azelastine 137 mcg (0.1 %) spray,non-aerosol 1 spray INTRANASAL AMHS metoprolol succinate 50 mg tablet extended release 24 hr 50 mg PO HS albuterol sulfate 90 mcg/actuation HFA aerosol inhaler 2 puff INHALATION Q4H PRN (Reason: wheezing or dyspnea) amlodipine 5 mg tablet 5 mg PO DAILY Eliquis 5 mg tablet 5 mg PO BID Referrals Referrals: Osito Alfaro MD [Primary Care Provider] -
--- NOTE | 2024-08-26 08:11 | CT Scan Report ---
CT head/brain wo con CLINICAL HISTORY: fall from standing; struck head on eliquis Technique: Contiguous axial CT images of the head were acquired from the base of the skull to the brain roly without intravenous contrast administration. Images were viewed in brain, subdural and bone windo ws. Automated dose lowering techniques and/or adjustment according to patient size were utilized for this exam. Comparison: Comparison is made to CT head 05/23/2024 Findings: Areas of decreased attenuation are present in the periventricular and subcortical white matter bilate rally consistent with small vessel ischemic disease. Generalized cerebral atrophy with commensurate e nlargement of the ventricles, sulci, and cisterns is also present. There is no acute intracranial hem orrhage or evidence of acute territorial infarction. No shift of the midline structures, mass effect, or extra-axial abnormalities are shown. Atherosclerotic calcifications are present in the intracran ial segments of the internal carotid arteries. Imaged portions of the paranasal sinuses and mastoid air cells are clear. The orbits appear normal. There are no acute fractures of the calvaria or scalp swelling. Impression: No acute intracranial hemorrhage, no evidence of acute territorial infarction or other acute intracra nial disease process. ACT 112: Negative or not required by law. Electronically signed by: Richard Kitchen M.D. 08/26/2024 8:10 AM
--- NOTE | 2024-08-26 08:12 | CT Scan Report ---
CT OF THE CERVICAL SPINE WITHOUT CONTRAST CLINICAL HISTORY: fall from standing; struck head on eliquis COMPARISON STUDY: CT of the neck May 23, 2024. CTA of the neck May 09, 2022. TECHNIQUE: Helical axial images of the cervical spine were obtained without IV contrast. Sagittal a nd coronal reconstructions were viewed. Automated exposure control was utilized for the study. A do se lowering technique was utilized adhering to the principles of ALARA. FINDINGS: Reversal of the cervical lordosis is unchanged as is mild anterolisthesis of C2 on C3. Ther e are no acute cervical spine fractures. Extensive degenerative changes at the C1-C2 articulation are again noted. There is moderate to severe multilevel disc space narrowing, endplate osteophytosis and facet arthrosis within the cervical spine. No prevertebral edema. Facet joints are intact. Central c anal and neural foramen are suboptimally assessed given CT technique. IMPRESSION: 1. No acute cervical spine fracture or subluxation. 2. Moderate to severe multilevel degenerative disc disease and facet arthrosis within the cervical sp ine. ACT 112: Negative or not required by law. Electronically signed by: Vamsi Hernandez M.D. 08/26/2024 8:11 AM
[2024-08-26 08:13] LABS: Albumin Globulin Ratio 1.6 (0.9-2); Albumin Level 4.2 gm/dl (3.4-5.0); BUN Creatinine Ratio 10.7 (10-20); Bilirubin,Total 1.2 mg/dl (0.2-1.0); Creatinine Clr Calc Pharmacy 64.9 ml/min; Globulin 2.7 gm/dl (2.5-4.0); Magnesium 1.7 mg/dl (1.7-2.4); Potassium 4.2 mmol/L (3.5-5.1); Total Protein 6.9 gm/dl (6.0-8.3)
[2024-08-26 08:28] LABS: Basophils # (auto) 0.01 K/uL (0.00-0.20); Basophils % (auto) 0.1 %; Immature Granulocytes # (auto) 0.06 K/uL (0.01-0.20); Immature Granulocytes % (auto) 0.5 %; Lymphocytes # (auto) 0.37 K/uL (1.20-3.40); Lymphocytes % (auto) 2.9 %; Monocytes # (auto) 0.51 K/uL (0.11-0.59); Neutrophils # (auto) 11.65 K/uL (1.40-6.50); Neutrophils % (auto) 92.5 %; Polychromasia 1+
[2024-08-26 08:28] LABS: Appearance Urine Clear (Clear); Bacteria Urine Automated None Seen (None Seen); Bilirubin Urine Negative (Negative); Blood Urine Negative (Negative); Color Urine Yellow; Epithelial Cell Urine Auto 0-2 /hpf (0-2); Glucose Urine UA Negative (Negative); Ketones Urine Trace (Negative); Leukocyte Esterase Urine Negative (Negative); Nitrite Urine Negative (Negative); Protein Urine Trace (Negative); RBC Urine Automated 0-2 /hpf (0-2); Specific Gravity Urine 1.022 (1.000-1.030); Urobilinogen Urine Negative (Negative); WBC Urine Automated 0-5 /hpf (0-5)
[2024-08-26 08:32] LABS: Troponin I High Sensitivity 52.3 pg/ml (0-20)
[2024-08-26 08:33] LABS: INR 1.1 (0.9-1.1); Prothrombin Time 11.4 Seconds (9.0-12.0)
[2024-08-26 09:21] LABS: Adenovirus PCR Not Detected (NotDetected); Bordetella parapertussis PCR Not Detected (NotDetected); Bordetella pertussis PCR Not Detected (NotDetected); Chlamydia pneumoniae PCR Not Detected (NotDetected); Coronavirus 229E PCR Not Detected (NotDetected); Coronavirus CoV-2 (COVID19)PCR Not Detected (NotDetected); Coronavirus HKU1 PCR Not Detected (NotDetected); Coronavirus NL63 PCR Not Detected (NotDetected); Coronavirus OC43PCR Not Detected (NotDetected); Human Metapneumovirus PCR Not Detected (NotDetected); Influenza A PCR Not Detected (NotDetected); Influenza B PCR Not Detected (NotDetected); Mycoplasma pneumoniae PCR Not Detected (NotDetected); Parainfluenza Virus 1 PCR Not Detected (NotDetected); Parainfluenza Virus 2 PCR Not Detected (NotDetected); Parainfluenza Virus 3 PCR Not Detected (NotDetected); Parainfluenza Virus 4 PCR Not Detected (NotDetected); Respiratory Syncytial VirusPCR Not Detected (NotDetected); Rhinovirus/Enterovirus PCR Not Detected (NotDetected)
[2024-08-26] MEDS: ACETAMINOPHEN 1,000 MG/100 ML VIAL IV STA (10:21)
--- NOTE | 2024-08-26 11:10 | History & Physical Report ---
Date of Service August 26, 2024 Assessment & Plan (1) Dizziness: (2) Elevated troponin: (3) Fall: (4) PAF (paroxysmal atrial fibrillation): (5) T2DM (type 2 diabetes mellitus): Plan This is a 74-year-old male who has significant past medical history of T2DM, PAF on eliquis, hx of TIA, HTN, HLD, dilated aortic root, aneurysm of aorta, CKD stage III, BPH, RLS, depression and history of prostate cancer s/p ERBT with hormone therapy in 2020 who presents to ED secondary to episode of lightheadedness and dizziness that resulted in him falling backwards and hitting his head. Lightheaded/Dizziness Elevated troponin Fall and hit head Generalized weakness admit to PCU for cardiac work up trop 52 --> 62.7 pg/ml last echo 06/2024 LVEF 70%, hyperdynamic, left atrium mildly enlarged, grade I diastolic dysfunction, mild aortic sclerosis present, aortic root 4.6cm and prox ascending thoracic aorta 4.6cm. will repeat echo given to eval for WMA CT head: no acute abn cycle trops obtain orthostatics, carotid doppler and monitor on tele for any tachy/jose ramon arrhythmias continue metoprolol and eliquis obtain a1c, lipid panel in a.m. consult PT/OT consider MRI if sx appear more vestibular in nature ED provider ordered CT Chest for dissection - will follow Diarrhea: pt reported chronic diarrhea and issues with urgency, had C scope in March that revealed radiation proctitis, polyp removal, hemorrhoid and diverticulosis; upper GI that revealed gastritis, duodenitis and LA grade B reflux esophagiti obtain stool studies, consult GI T2DM: A1C 6.8 in May, repeat in a.m., ISS per protocol HTN: Chronic, stable, continue metoprolol, amlodipine and lisinopril PAF/hx of TIA: continue metoprolol and eliquis, monitor tele GERD/Gastritis/Esophagitis: on PPI CKD-3: renal fx stable, baseline cr 1.2, avoid nephrotoxic agent DVT ppx: Eliquis FULL CODE PCP: Dominic Dispo: admit to PCU under obs Pt seen and examined in collaboration with Dr. Kim, please see addendum I spent a total of 76 minutes reviewing notes, outpatient records, labs, medication, coordinating, documenting and providing care for this patient excluding time spent in the performance of separately billed services. History of Present Illness Chief Complaint: Episode of lightheaded/dizziness that resulted in falling backward and hitting his head. Primary Care Provider: Osito Alfaro MD This is a 74-year-old male who has significant past medical history of T2DM, PAF on eliquis, hx of TIA, HTN, HLD, dilated aortic root, aneurysm of aorta, CKD stage III, BPH, RLS, depression and history of prostate cancer s/p ERBT with hormone therapy in 2020 who presents to ED secondary to episode of lightheadedness and dizziness that resulted in him falling backwards and hitting his head. He was unable to get up after the incident. His who was also a patient in the neighboring bed was at bedside and elicited history as well as external chart review. He reports that he has been having intermittent episodes of diarrhea over the last 3 to 4 months. When he has to move his bowels there is a significant sense of urgency to the point he usually loses control. He states he had an episode this morning and he was on his hands and knees trying to clean it up. When he went to sit up he felt off balance and fell backwards h itting his head on the sink. He recalls all events and did not lose consciousness. He tried to get to his hands and knees and stand up, but he was unable. His tried to assist in getting up and in doing so hurt her back. They had to summon EMS for assistance. Patient reports that he has been having intermittent episodes of these lightheadedness/dizziness episodes that have been becoming more frequent. He said initially they would just happen every once in a while and now they are occurring daily. He reports feeling off balance requiring him to hold onto things to not lose balance. He denies feeling presyncopal like he is going to pass out. He also reports an episode of chest pain approximately 1 week ago that was left-sided. He states it lasted seconds and denied any radiation of symptoms. He further denied any associated nausea, vomiting, diaphoresis, syncope or shortness of breath. He does admit to increasingly shortness of breath with exertion. He does report he had COVID approximately 1 month ago. He reports having COVID 3 times. feels he is suffering from long COVID. He denies any recent fever, chills, sweats, cough, hemoptysis, nausea, vomiting, abdominal pain. reports he recently had a colonoscopy secondary to the diarrhea which was unrevealing. Also of note in the later aspect of 2023 patient was diagnosed with atrial fibrillation. He was treated with metoprolol and Eliquis. He has been compliant with these medications. He was to undergo cardioversion, but he spontaneously converted to NSR. Last confined May 2024 2/2 dental infection and sepsis. Last echo 06/14/24: LVEF 70%, hyperdynamic, left atrium mildly enlarged, grade I diastolic dysfunction, mild aortic sclerosis present, aortic root 4.6cm and prox ascending thoracic aorta 4.6cm. Allergies Allergy/AdvReac Type Severity Reaction Status Date / Time animal dander Allergy Intermediate Itchy/Watery Verified 08/05/24 11:13 eyes, Congestion grass pollen Allergy Intermediate Itchy/Watery Verified 08/05/24 11:13 eyes, Congestion mold Allergy Intermediate Congestion Verified 08/05/24 11:13 warfarin [From Coumadin] Allergy Unknown Unknown Verified 08/05/24 11:13 Home Medications Medication Instructions Recorded Confirmed Type loratadine 10 mg tablet (Claritin) 10 mg PO DAILY PRN Allergy Symptoms 09/23/21 08/26/24 History melatonin 10 mg tablet 10 mg PO HS 09/23/21 08/26/24 History multivitamin 1 tab PO QAM 09/23/21 08/26/24 History azelastine 137 mcg (0.1 %) nasal 1 spray intranasal AMHS 05/23/24 08/26/24 History spray escitalopram oxalate 10 mg tablet 10 mg PO QAM 05/23/24 08/26/24 History (Lexapro) lisinopril 40 mg tablet 40 mg PO QAM 05/23/24 08/26/24 History omeprazole 40 mg capsule,delayed 40 mg PO QAM 05/23/24 08/26/24 History release rosuvastatin 10 mg tablet (Crestor) 10 mg PO DAILY 05/23/24 08/26/24 History metoprolol succinate 100 mg 100 mg PO QAM 08/05/24 08/26/24 History tablet,extended release 24 hr albuterol sulfate 90 mcg/actuation 2 puff inhalation Q4H PRN wheezing 08/26/24 08/26/24 History aerosol inhaler or dyspnea amlodipine 5 mg tablet 5 mg PO DAILY 08/26/24 08/26/24 History apixaban 5 mg tablet (Eliquis) 5 mg PO BID 08/26/24 08/26/24 History metoprolol succinate 50 mg 50 mg PO HS 08/26/24 08/26/24 History tablet,extended release 24 hr Past Med/Surg History Problem List (Updated 08/26/24 @ 12:00 by Camille Alegria PA-C) PAF (paroxysmal atrial fibrillation) Fall Elevated troponin Chest pain (Acute) Fall from standing (Acute) Non-ST elevation FL (NSTEMI) (Acute) Dizziness (Acute) Encounter for pre-operative examination GERD (gastroesophageal reflux disease) (Acute) Essential hypertension Medical History (Updated 08/26/24 @ 12:00 by Camille Alegria PA-C) T2DM (type 2 diabetes mellitus) Enlarged thoracic aorta Echo 06/2024: Proximal ascending thoracic aorta is moderately enlarged, 4.6 cm Dilated aortic root Echo 06/2024: Moderately enlarged aortic root, 4.6 cm Environmental allergies Hx of transient ischemic attack (TIA) Several years ago (~), no issues since Atrial fibrillation Follows with [facility] Cardio Pneumomediastinum Hx 05/2024, [facility] admission Hx of sepsis 05/2024- after dental procedures > [facility] admission GERD (gastroesophageal reflux disease) Hypertension BPH (benign prostatic hyperplasia) Depression Restless leg syndrome Per records, patient unsure Prostate CA 2019 - XRT Surgical History Hx of colonoscopy History of penile implant Per records History of dental surgery Hx of tonsillectomy History of hernia surgery x2 History of total left knee replacement H/O vasectomy Family History Father , age 62 Heart disease Mother , ~70 y/o Heart disease Stroke Social History Smoking Status: Never smoker Second Hand Exposure: No; Do You Dip or Chew Tobacco: No; Hx Alcohol Use: Yes Alcohol type: beer, wine and hard liquor Hx Substance Use: No Preferred Language: Uzbek Communication Ability: Effective Cat Skinner Required: No Beliefs That Will Affect Care: None Current Living Situation: Spouse Current Living Situation Comment: lives with fiance Feels Safe at Home: Yes Assistive Devices: Glasses and Other Review of Systems Review of Systems: All systems reviewed & are unremarkable except as noted in HPI & below Physical Exam Physical Exam: please refer to Dr Kim addendum for physical exam findings. Results & Data Results & Data Vital Signs (Past 12 Hours) Vital Signs Temp Pulse Pulse Resp BP BP Pulse Ox 08/26/24 10:00 98 H 20 141/94 H 94 08/26/24 09:31 103 H 23 139/84 94 08/26/24 09:00 107 H 24 167/102 H 92 08/26/24 08:30 105 H 19 160/89 H 94 08/26/24 08:09 104 H 18 147/93 H 93 08/26/24 08:05 103 H 19 147/93 H 93 08/26/24 07:51 107 H 08/26/24 07:37 37.0 C 108 H 21 149/93 H 94 O2 Del Method 08/26/24 10:00 Room Air 08/26/24 09:31 Room Air 08/26/24 09:00 08/26/24 08:30 08/26/24 08:09 Room Air 08/26/24 08:05 08/26/24 07:51 08/26/24 07:37 Room Air Laboratory Results I have independently reviewed and interpreted patient's admitting labs including CBC, CMP, PTT, PT/INR, mag and troponin. Diagnostic Findings Cervical Spine CT 08/26/24 07:38 CT OF THE CERVICAL SPINE WITHOUT CONTRAST CLINICAL HISTORY: fall from standing; struck head on eliquis COMPARISON STUDY: CT of the neck May 23, 2024. CTA of the neck May 09, 2022. TECHNIQUE: Helical axial images of the cervical spine were obtained without IV contrast. Sagittal and coronal reconstructions were viewed. Automated exposure control was utilized for the study. A dose lowering technique was utilized adhering to the principles of ALARA. FINDINGS: Reversal of the cervical lordosis is unchanged as is mild anterolisthesis of C2 on C3. There are no acute cervical spine fractures. Extensive degenerative changes at the C1-C2 articulation are again noted. There is moderate to severe multilevel disc space narrowing, endplate osteophytosis and facet arthrosis within the cervical spine. No prevertebral edema. Facet joints are intact. Central canal and neural foramen are suboptimally assessed given CT technique. IMPRESSION: 1. No acute cervical spine fracture or subluxation. 2. Moderate to severe multilevel degenerative disc disease and facet arthrosis within the cervical spine. ACT 112: Negative or not required by law. Electronically signed by: Vamsi Hernandez M.D. 08/26/2024 8:[address] 08/26/24 07:38 CT head/brain wo con CLINICAL HISTORY: fall from standing; struck head on eliquis Technique: Contiguous axial CT images of the head were acquired from the base of the skull to the vertex without intravenous contrast administration. Images were viewed in brain, subdural and bone windows. Automated dose lowering techniques and/or adjustment according to patient size were utilized for this exam. Comparison: Comparison is made to CT head 05/23/2024 Findings: Areas of decreased attenuation are present in the periventricular and subcortical white matter bilaterally consistent with small vessel ischemic disease. Generalized cerebral atrophy with commensurate enlargement of the ventricles, sulci, and cisterns is also present. There is no acute intracranial hemorrhage or evidence of acute territorial infarction. No shift of the midline structures, mass effect, or extra-axial abnormalities are shown. Atherosclerotic calcifications are present in the intracranial segments of the internal carotid arteries. Imaged portions of the paranasal sinuses and mastoid air cells are clear. The orbits appear normal. There are no acute fractures of the calvaria or scalp swelling. Impression: No acute intracranial hemorrhage, no evidence of acute territorial infarction or other acute intracranial disease process. ACT 112: Negative or not required by law. Electronically signed by: Richard Kitchen M.D. 08/26/2024 8:10 AM Medications Administered Medication List Discontinued Medications Acetaminophen (Ofirmev) 1,000 mg in 100 mls @ 400 mls/hr IV NOW STA Stop: 08/26/24 10:02 Last Infusion: 08/26/24 10:52 Dose: Infused Documented By: Admin: 08/26/24 10:21 Dose: 400 mls/hr Documented By: ENDY ECG Additional Comments: I have independently reviewed and interpreted patient's admitting EKG which revealed: ST, PAC , 102 bpm, incomplete RBBB, LAFB. COVID-19 Results Results COVID-19 Adm Lab Results: RBC 5.01 M/uL (4.70-6.10) 08/26/24 WBC 12.60 K/ul (4.8-10.8) H 08/26/24 Hgb 14.6 g/dl (14.0-18.0) 08/26/24 Hct 44.4 % (42.0-52.0) 08/26/24 Plt Count 216 K/uL (130-400) 08/26/24 Neutrophils (%) (Auto) 92.5 % 08/26/24 Lymphocytes (%) (Auto) 2.9 % 08/26/24 Monocytes # (Auto) 0.51 K/uL (0.11-0.59) 08/26/24 Eosinophils # (Auto) 0.00 K/uL (0.00-0.50) 08/26/24 Immature Granulocyte % (Auto) 0.5 % 08/26/24 Neutrophils # (Auto) 11.65 K/uL (1.40-6.50) H 08/26/24 Lymphocytes # (Auto) 0.37 K/uL (1.20-3.40) L 08/26/24 Monocytes # (Auto) 0.51 K/uL (0.11-0.59) 08/26/24 Eosinophils # (Auto) 0.00 K/uL (0.00-0.50) 08/26/24 Basophils # (Auto) 0.01 K/uL (0.00-0.20) 08/26/24 Immature Granulocyte # (Auto) 0.06 K/uL (0.01-0.20) 5 Polychromasia 1+ 08/26/24 Na 135 mmol/L (136-145) L 08/26/24 K 4.2 mmol/L (3.5-5.1) 08/26/24 Cl 101 mmol/L (98-107) 08/26/24 CO2 26 mmol/L (21-32) 08/26/24 Anion Gap 8 (3-11) 08/26/24 BUN 13 mg/dl (6-23) 08/26/24 Creatinine 1.22 mg/dl (0.6-1.4) 08/26/24 BUN/Creatinine Ratio 10.7 (10-20) 08/26/24 Glucose Level 197 mg/dl (70-99(Fasting)) H 08/26/24 Ca 10.0 mg/dl (8.6-10.3) 08/26/24 Total Bilirubin 1.2 mg/dl (0.2-1.0) H 08/26/24 AST/SGOT 19 U/L (13-39) 08/26/24 ALT/SGPT 19 U/L (7-52) 08/26/24 Alkaline Phosphatase 47 U/L (34-104) 08/26/24 Total Protein 6.9 gm/dl (6.0-8.3) 08/26/24 Albumin 4.2 gm/dl (3.4-5.0) 08/26/24 Globulin 2.7 gm/dl (2.5-4.0) 08/26/24 Albumin/Globulin Ratio 1.6 (0.9-2) 08/26/24 INR 1.1 (0.9-1.1) 08/26/24 Adenovirus (PCR) Not Detected (NotDetected) 08/26/24 B. parapertussis DNA (PCR) Not Detected (NotDetected) 08/08 B. pertussis DNA (PCR) Not Detected (NotDetected) 08/26/24 C. pneumoniae DNA (PCR) Not Detected (NotDetected) 5 Coronavirus Type OC43 (PCR) Not Detected (NotDetected) Coronavirus Type HKU1 (PCR) Not Detected (NotDetected) Coronavirus Type 229E (PCR) Not Detected (NotDetected) COVID-19 PCR Not Detected (NotDetected) 08/26/24 Coronavirus Type NL63 (PCR) Not Detected (NotDetected) Human Metapneumovirus (PCR) Not Detected (NotDetected) Influenza Virus Type A (PCR) Not Detected (NotDetected) Influenza Virus Type B (PCR) Not Detected (NotDetected) M. pneumoniae (PCR) Not Detected (NotDetected) 08/26/24 Parainfluenza Type 1 (PCR) Not Detected (NotDetected) 08/08 Parainfluenza Type 2 (PCR) Not Detected (NotDetected) 08/08 Parainfluenza Type 3 (PCR) Not Detected (NotDetected) 08/08 Parainfluenza Type 4 (PCR) Not Detected (NotDetected) 08/08 RSV (PCR) Not Detected (NotDetected) 08/26/24 Enterovirus/Rhinovirus (PCR) Not Detected (NotDetected) Code Status & VTE Plan Code Status FULL CODE Supervising Physician Co-Signing Physician Notes Pt seen and examined by me , care coordinated w/ B. LUANN Alegria, pls refer to her note above for further detail. 74 yo M w/ hx of T2DM, PAF on Eliquis, hx of TIA, HTN, HLD, dilated aortic root, aneurysm of aorta, CKD stage III, BPH, RLS, depression and history of prostate cancer s/p ERBT with hormone therapy in 2020 who presents to ED secondary to episode of lightheadedness and dizziness that resulted in him falling backwards and hitting his head. Pt is currently laying in bed in NAD, he is awake, alert oriented but also appears very tired. Pt's is present at the bedside and also provides history. Pt has been having intermittent episodes of diarrhea for several months. He had an episode this morning, was cleaning up after himself, fell backward and hit his head. He denies loss of consciousness. He also reports an episode of chest pain approximately 1 week ago that was left- sided. He states it lasted seconds and denied any radiation of symptoms. reports he recently had a colonoscopy secondary to the diarrhea which was unrevealing. In 2023 patient was diagnosed with atrial fibrillation. He was treated with metoprolol and Eliquis. Last confined May 2024 2/2 dental infection and sepsis. Last echo 06/14/24: LVEF 70%, hyperdynamic, left atrium mildly enlarged, grade I diastolic dysfunction, mild aortic sclerosis present, aortic root 4.6cm and prox ascending thoracic aorta 4.6cm. On phys. exam, lungs are CTAB, heart sounds regular. Abdomen soft, nontender. No LE edema. Pt answers appropriately. Will obtain stool studies, orthostatic VS. Will provide IVF. obtain echo, carotids US. Will discuss w/ GI and cardiology. Knab, MD
[2024-08-26] MEDS: OPTIRAY 320 125ml IV ONE (11:47)
--- NOTE | 2024-08-26 12:08 | CT Scan Report ---
CT ANGIOGRAPHY OF THE CHEST DISSECTION PROTOCOL CLINICAL HISTORY: Chest pain. Syncope. Evaluate for dissection. COMPARISON STUDY: Chest CT May 23, 2024. TECHNIQUE: Before and following the IV administration of 112 mL of Optiray, helical axial images of t he chest were obtained. Maximal intensity projections and sagittal and coronal reformats were viewed on an independent 3D workstation. IV contrast was administered without complication. Automated exp osure control was utilized for the study. A dose lowering technique was utilized adhering to the aixa keon of RON. CT DOSE: 2086.11 mGy.cm FINDINGS: Moderate atherosclerotic plaque within the thoracic aorta. Mild dilatation of the ascending aorta measuring 4.5 cm at the level of the main pulmonary artery is unchanged since prior CT. There is no thoracic aortic dissection or intramural hematoma. The heart is moderately enlarged. There is n o pericardial effusion. There is no thoracic lymphadenopathy. No pulmonary emboli are identified. The re is no pneumothorax or pleural effusion. No consolidation to suggest pneumonia. There are no suspic ious pulmonary nodules. There is an old, healed left clavicular fracture. Multiple old bilateral rib fractures are present. No acute fractures within the bony thorax are identified. There are several he patic cysts. IMPRESSION: 1. No thoracic aortic dissection. Moderate plaque within the thoracic aorta with stable mild dilatati on of the ascending aorta measuring up to 4.5 cm. 2. No acute intrathoracic findings. 3. Cardiomegaly. ACT 112: Negative or not required by law. Electronically signed by: Vamsi Hernandez M.D. 08/26/2024 12:05 PM
--- NOTE | 2024-08-26 12:21 | Cardiology Consultation ---
Date of Consultation August 26, 2024 Assessment & Plan (1) Dizziness: (2) PAF (paroxysmal atrial fibrillation): (3) Diarrhea: (4) Orthostasis: (5) Elevated troponin: Plan Patient admitted with recurrent lightheadedness, causing a fall and striking his head. Negative head CT. His recent lightheadedness, coincides with worsening diarrheal illness, likely orthostasis. GI consulted and stool tests pending. Recommend gentle hydration. Hold lisinopril. Amlodipine was on hold over the last few months due to hypotension. He reports he has not been taking. Monitor BP. Resume lisinopril as needed. He does report compliance with Eliquis and metoprolol 100 mg in AM and 50 mg in afternoon. No known recurrence of afib. Continue metoprolol 100 mg in AM and 50 mg in AM continue Eliquis 5 mg BID Monitor on telemetry for jose ramon/tachyarrhythmias. Consider outpatient ZIO monitor EKG demonstrated sinus tachycardia without acute ST/T wave abnormalities. Patient did not yet take morning metoprolol at time of EKG. Minimally elevated troponin at 52 and 63 without anginal complaints or acute ST changes on EKG. Likely demand ischemia in setting of acute illness. Not indicative of ACS. Echo pending. Case discussed with Dr. Faisal Baugh spent a total of 60 minutes on the date of service in preparation, delivery, and documentation of the care provided to this patient, excluding any time spent in the performance of separately billed services. Nyasia Weldon PA-C Department of Cardiology, [facility] This chart was completed in part utilizing Speech Voice Recognition Software. Grammatical errors, random word insertions, pronoun errors, and incomplete sentences are an occasional consequence of this system due to software limitations, ambient noise, and hardware issues. Any formal questions or concerns about the content, text, or information contained within the body of this dictation should be directly addressed to the provider for clarification. Supervising Physician Co-Signing Physician Notes Patient seen and examined. Chart and laboratory studies personally reviewed full assessment and plan as outlined by advanced provider above. Care and management discussed and personally endorsed 74-year-old male presenting after episode of lightheadedness with fall following episode of significant diarrhea. SPECT component of orthostatic hypotension. Prior history of paroxysmal atrial fibrillation without current lapse Troponin elevation noted but without EKG changes and with hyperdynamic LV function without wall motion abnormality Plan as outlined we will continue to follow in hospital History of Present Illness Reason for Consultation: Elevated troponin; Dizziness Requesting Physician: Claudio stewart Attending Physician: Dr. Malone History of Present Illness Patient admitted to [facility] this morning after a fall at home secondary to lightheadedness/dizziness. Cardiology consulted for evaluation of dizziness and elevated troponin at 52 on arrival and 62 on repeat. EKG on arrival demonstrated sinus tachycardia with PAC. No acute ischemic changes. Patient denies chest pain, diaphoresis, dyspnea prior to admission. He recall having one episode of sharp chest pain/epigastric pain lasting several seconds about 4 days ago while watching a football game. No recurrent symptoms. He typically is very active without chest pain or dyspnea noted during exercise. Over the last few weeks to several months patient had had progressive issues with diarrhea, described as "explosive" and causing incontinence. No melena or hematochezia noted. He had an episode last night at 3:30 in the morning with incontinence. He was cleaning up the bathroom floor when he became "weak and dizzy". He was on his hands and knees and fell backwards, striking his head on the bathroom sink. No loss of consciousness reported before/after event. He denies symptoms of palpitations or tachypalpitations. he has been monitoring BP and HR at home and typically reports readings in the 130/70's and HR in the 70's. He did recall having one low reading last week in the 90's for BP but is not certain if this was around the time of a dizzy spell. patient reports his amlodipine was stopped several months ago after several episodes of dizziness and hypotension. This aided his symptoms at that time. He continued to take lisinopril 40 mg and metoprolol 100 mg in AM and 50 mg in evening. Patient was admitted back in May 2024 for sepsis and diagnosed with afib at that time. He was started on metoprolol 100 mg BID at that time and eliquis. Metoprolol then reduced to 100 mg in AM and 50 mg in evening due to fatigue. Future cardioversion had been planned, but patient had converted to NSR spontaneously. His beta ramiro was not adjusted post conversion to NSR. Since admission, patient reports feeling ok. He has ongoing headache since hitting his head but no vision changes. No dizziness currently while in bed. No chest pain currently. GI consulted for diarrhea. Patient known to [facility] Cardiology - Dr. Ennis. History includes: 1. PAF, diagnosed in May 2024. Now on metoprolol and Eliquis 2. Hypertension 3. Moderate aortic root and ascending aortic enlargement 4. Remote history of TIA. Now with memory loss? 5. Prior admission in May 2024 with sepsis secondary to tooth infection. Allergies Allergy/AdvReac Type Severity Reaction Status Date / Time animal dander Allergy Intermediate Itchy/Watery Verified 08/05/24 11:13 eyes, Congestion grass pollen Allergy Intermediate Itchy/Watery Verified 08/05/24 11:13 eyes, Congestion mold Allergy Intermediate Congestion Verified 08/05/24 11:13 warfarin [From Coumadin] Allergy Unknown Unknown Verified 08/05/24 11:13 Home Medications Medication Instructions Recorded Confirmed Type loratadine 10 mg tablet (Claritin) 10 mg PO DAILY PRN Allergy Symptoms 09/23/21 08/26/24 History melatonin 10 mg tablet 10 mg PO HS 09/23/21 08/26/24 History multivitamin 1 tab PO QAM 09/23/21 08/26/24 History azelastine 137 mcg (0.1 %) nasal 1 spray intranasal AMHS 05/23/24 08/26/24 History spray escitalopram oxalate 10 mg tablet 10 mg PO QAM 05/23/24 08/26/24 History (Lexapro) lisinopril 40 mg tablet 40 mg PO QAM 05/23/24 08/26/24 History omeprazole 40 mg capsule,delayed 40 mg PO QAM 05/23/24 08/26/24 History release rosuvastatin 10 mg tablet (Crestor) 10 mg PO DAILY 05/23/24 08/26/24 History metoprolol succinate 100 mg 100 mg PO QAM 08/05/24 08/26/24 History tablet,extended release 24 hr albuterol sulfate 90 mcg/actuation 2 puff inhalation Q4H PRN wheezing 08/26/24 08/26/24 History aerosol inhaler or dyspnea apixaban 5 mg tablet (Eliquis) 5 mg PO BID 08/26/24 08/26/24 History metoprolol succinate 50 mg 50 mg PO HS 08/26/24 08/26/24 History tablet,extended release 24 hr Patient History Medical History (Updated 08/26/24 @ 13:13 by Nyasia Weldon PA-C) T2DM (type 2 diabetes mellitus) Enlarged thoracic aorta Echo 06/2024: Proximal ascending thoracic aorta is moderately enlarged, 4.6 cm Dilated aortic root Echo 06/2024: Moderately enlarged aortic root, 4.6 cm Environmental allergies Hx of transient ischemic attack (TIA) Several years ago (~), no issues since Atrial fibrillation Follows with [facility] Pneumomediastinum Hx 05/2024, [facility] admission Hx of sepsis 05/2024- after dental procedures > [facility] admission GERD (gastroesophageal reflux disease) Hypertension BPH (benign prostatic hyperplasia) Depression Restless leg syndrome Per records, patient unsure Prostate CA 2019 - XRT Surgical History Hx of colonoscopy History of penile implant Per records History of dental surgery Hx of tonsillectomy History of hernia surgery x2 History of total left knee replacement H/O vasectomy Family History Father , age 62 Heart disease Mother , ~70 y/o Heart disease Stroke Social History Smoking Status: Never smoker Second Hand Exposure: No; Do You Dip or Chew Tobacco: No; Hx Alcohol Use: Yes Alcohol type: beer, wine and hard liquor Hx Substance Use: No Preferred Language: Maori Communication Ability: Effective Cooper Apprentice Required: No Beliefs That Will Affect Care: None Current Living Situation: Spouse Current Living Situation Comment: lives with fiance Feels Safe at Home: Yes Assistive Devices: Glasses and Other Review of Systems Review of Systems: All systems reviewed & are unremarkable except as noted in HPI & below Physical Exam Constitutional: WD/WN, vitals as above well developed; no acute distress Neck: normal visual inspection Respiratory: normal respiratory effort; no labored breathing Auscultation: lungs clear to auscultation bilaterally; no crackles and no rales Cardiovascular: Rate/Rhythm: regular rate and regular rhythm Heart Sounds: + murmur (II/ systolic murmur ) Vessels: no JVD Extremities: no edema Gastrointestinal (Abdomen): normal bowel sounds, soft, nontender, no hepatosplenomegaly Skin: no rashes, warm and dry Neurologic: PERRL, EOMI, accommodation nl, no face palsy, no dysarthria Psychiatric: A+Ox3, euthymic affect Results & Data Vital Signs (Past 12 Hours) Vital Signs Temp Pulse Pulse Resp BP BP Pulse Ox 08/26/24 11:00 102 H 22 133/90 94 08/26/24 10:45 95 H 22 125/89 94 08/26/24 10:30 95 H 22 140/93 94 08/26/24 10:15 102 H 94 H 141/94 H 93 08/26/24 10:00 108 H 24 129/93 93 08/26/24 10:00 98 H 20 141/94 H 94 08/26/24 09:31 103 H 23 139/84 94 08/26/24 09:00 107 H 24 167/102 H 92 08/26/24 08:30 105 H 19 160/89 H 94 08/26/24 08:09 104 H 18 147/93 H 93 08/26/24 08:05 103 H 19 147/93 H 93 08/26/24 07:51 107 H 08/26/24 07:37 37.0 C 108 H 21 149/93 H 94 O2 Del Method 08/26/24 11:00 08/26/24 10:45 08/26/24 10:30 08/26/24 10:15 08/26/24 10:00 08/26/24 10:00 Room Air 08/26/24 09:31 Room Air 08/26/24 09:00 08/26/24 08:30 08/26/24 08:09 Room Air 08/26/24 08:05 08/26/24 07:51 08/26/24 07:37 Room Air Laboratory Results Cardiac Enzymes 08/26/24 08/26/24 Range/Units 07:40 09:23 AST 19 (13-39) U/L Troponin I High Sens 52.3 H* 62.7 H* D (0-20) pg/ml Coagulation 08/26/24 Range/Units 07:40 PT 11.4 (9.0-12.0) Seconds CBC 08/26/24 Range/Units 07:40 WBC 12.60 H (4.8-10.8) K/ul RBC 5.01 (4.70-6.10) M/uL Hgb 14.6 (14.0-18.0) g/dl Hct 44.4 (42.0-52.0) % Plt Count 216 (130-400) K/uL Neut # (Auto) 11.65 H (1.40-6.50) K/uL Lymph # (Auto) 0.37 L (1.20-3.40) K/uL Terry # (Auto) 0.51 (0.11-0.59) K/uL Eos # (Auto) 0.00 (0.00-0.50) K/uL Baso # (Auto) 0.01 (0.00-0.20) K/uL Comprehensive Metabolic Panel 08/26/24 Range/Units 07:40 Sodium 135 L (136-145) mmol/L Potassium 4.2 (3.5-5.1) mmol/L Chloride 101 (98-107) mmol/L Carbon Dioxide 26 (21-32) mmol/L BUN 13 (6-23) mg/dl Creatinine 1.22 (0.6-1.4) mg/dl Glucose 197 H (70-99(Fasting)) mg/dl Calcium 10.0 (8.6-10.3) mg/dl AST 19 (13-39) U/L ALT 19 (7-52) U/L Alkaline Phosphatase 47 (34-104) U/L Total Protein 6.9 (6.0-8.3) gm/dl Albumin 4.2 (3.4-5.0) gm/dl Intake and Output 08/25/24 08/26/24 08/26/24 22:59 06:59 14:59 Intake Total 100 / 100 Balance 100 / 100 Intake: IV 100 / 100 Acetaminophen 1,000 mg In 100 100 / 100 ml @ 400 mls/hr IV NOW STA Rx#: [id number] Other: Weight 106.3 kg Weight Measurement Method Built in [facility] Patient Weight 08/27/24 06:59 Weight 106.3 kg Diagnostic Findings Telemetry reviewed: NSR occ PAC. No afib or arrhythmias. No pauses Echo pending EKG reviewed from arrival 08/26/24 at 7:31 AM Sinus tachycardia at 106 with PAC's Incomplete RBBB LAFB No change from previous Repeat EKG reviewed froom 08/26/24 at 9:43 AM: Sinus tachycardia at 102 bmp incomplete RBBB LAFB no ischemic changes Cervical Spine CT 08/26/24 07:38 IMPRESSION: 1. No acute cervical spine fracture or subluxation. 2. Moderate to severe multilevel degenerative disc disease and facet arthrosis within the cervical spine. Head CT 08/26/24 07:38 Impression: No acute intracranial hemorrhage, no evidence of acute territorial infarction or other acute intracranial disease process. Chest CTA 08/26/24 10:42 IMPRESSION: 1. No thoracic aortic dissection. Moderate plaque within the thoracic aorta with stable mild dilatation of the ascending aorta measuring up to 4.5 cm. 2. No acute intrathoracic findings. 3. Cardiomegaly. Echo report reviewed from 06/2024: Moderate LVH Normal wall motion LVEF is hyperdynamic > 70% No LV outflow tract gradient is observed Mild AI Mild MR Aortic root and ascending aorta measuring 4.6 cm.
--- NOTE | 2024-08-26 13:04 | Gastrointestinal Consultation ---
Date of Consultation August 26, 2024 Assessment & Plan (1) Fall: Plan 74 year old male w/ history of T2DM, PAF on eliquis, hx of TIA, HTN, HLD, dilated aortic root, aneurysm of aorta, CKD stage III, BPH, RLS, depression and history of prostate cancer s/p ERBT with hormone therapy in 2020 admitted through the ED following a fall - GI asked to evaluate for diarrhea which has been ongoing for months. Recent EGD/Colonoscopy arrange through [facility] for symptoms w/ negative biopsies - Follow stool studies - Check c.diff - Consider abdominal imaging w/ CT to rule out any sinister pathology - Pending above, will discuss treatment options for his symptoms I spent a total of 60 minutes on the date of service in review of patient's record, and previously obtained information in person and appropriate medical visit, discussion and education of plan, with patient and/or caregiver, placing orders for tests/referral/procedures as medically necessary and documentation of pertinent clinical information in patient's medical records for their visit today. Supervising Physician Co-Signing Physician Notes Diarrhea with negative endoscopic workup including biopsies for celiac and microscopic colitis. Patient notes bouts of incontinence. Sometimes this points to nonabsorbable carbohydrates in the diet. Patient does ingest milk and pop recommended these be discontinued. May not be the whole story but may increase bouts of diarrhea and certainly incontinence. Stool studies pending. Patient has not been taking anything for hoards diarrhea but seems reasonable to try Imodium or Lomotil. Alternatively trial of cholestyramine could be undertaken no plans for repeating his endoscopic studies. History of Present Illness Reason for Consultation: diarrhea for 3-4 months Requesting Physician: Camille Alegria Attending Physician: Camille Alegria History of Present Illness 74 year old male w/ history of T2DM, PAF on eliquis, hx of TIA, HTN, HLD, dilated aortic root, aneurysm of aorta, CKD stage III, BPH, RLS, depression and history of prostate cancer s/p ERBT with hormone therapy in 2020 admitted through the ED following a fall - GI asked to evaluate for diarrhea. Pt was seen and evaluated, chart reviewed. Endorses diarrhea started about 6 month ago. Does not occur daily. Suggests on a good day will move semi-formed stools 2-3 times daily. On a bad day will have 4-6 loose stools in the AM. No black or bloody stools. No abd pain. Does get cramping and urgency before BMs. No nausea/vomiting. Has not tried any therapy for his diarrhea. Weight stable, about 5-10 lb weight gain after review of [facility] record over the last 2-3 years. No family history of IBD or celiac disease. Stool PCR pending C.diff pending No recent ABD imaging Pathology 2023: A. Duodenum, biopsy: Duodenal mucosa with focal hyperemia feature consistent with erosion /mild chronic duodenitis. No villous blunting, significant active inflammation or intraepithelial lymphocytosis.B. Stomach, biopsy: Gastric oxyntic mucosa with hyperemia and minimal chronic inflammation. No H.pylori like organism identified.C. Esophagus, biopsy: mucosa with finding consistent with reflux esophagitis. See note.No diagnostic evidence of intestinal metaplasia or dysplasia identified.D. Colon, biopsy: Colonic mucosa with no significant histopathologic changes.Note for part D: Tissue sections of the colon biopsies reveal unremarkable colonic mucosa. No significant active inflammation, dysplasia, or evidence of microscopic colitis identified.E. Colon, descending, polyp, polypectomy: Tubular adenoma. EGD 2023: Normal upper third of esophagus and middle third of esophagus. - LA Grade B reflux esophagitis with no bleeding. Biopsied. - Gastritis. Biopsied. - Duodenitis. Biopsied. Colonoscopy 2023: Hemorrhoids found on perianal exam. - The examined portion of the ileum was normal. - Normal mucosa in the entire examined colon. Biopsied. - One 5 mm polyp in the descending colon, removed with a cold snare. Resected and retrieved. - Internal hemorrhoids. - Mild diverticulosis in the sigmoid colon. - Multiple non-bleeding colonic angioectasias consistent with known radiation proctitis. Allergies Allergy/AdvReac Type Severity Reaction Status Date / Time animal dander Allergy Intermediate Itchy/Watery Verified 08/05/24 11:13 eyes, Congestion grass pollen Allergy Intermediate Itchy/Watery Verified 08/05/24 11:13 eyes, Congestion mold Allergy Intermediate Congestion Verified 08/05/24 11:13 warfarin [From Coumadin] Allergy Unknown Unknown Verified 08/05/24 11:13 Home Medications Medication Instructions Recorded Confirmed Type loratadine 10 mg tablet (Claritin) 10 mg PO DAILY PRN Allergy Symptoms 09/23/21 08/26/24 History melatonin 10 mg tablet 10 mg PO HS 09/23/21 08/26/24 History multivitamin 1 tab PO QAM 09/23/21 08/26/24 History azelastine 137 mcg (0.1 %) nasal 1 spray intranasal AMHS 05/23/24 08/26/24 History spray escitalopram oxalate 10 mg tablet 10 mg PO QAM 05/23/24 08/26/24 History (Lexapro) lisinopril 40 mg tablet 40 mg PO QAM 05/23/24 08/26/24 History omeprazole 40 mg capsule,delayed 40 mg PO QAM 05/23/24 08/26/24 History release rosuvastatin 10 mg tablet (Crestor) 10 mg PO DAILY 05/23/24 08/26/24 History metoprolol succinate 100 mg 100 mg PO QAM 08/05/24 08/26/24 History tablet,extended release 24 hr albuterol sulfate 90 mcg/actuation 2 puff inhalation Q4H PRN wheezing 08/26/24 08/26/24 History aerosol inhaler or dyspnea apixaban 5 mg tablet (Eliquis) 5 mg PO BID 08/26/24 08/26/24 History metoprolol succinate 50 mg 50 mg PO HS 08/26/24 08/26/24 History tablet,extended release 24 hr Patient History Medical History (Updated 08/26/24 @ 13:13 by Nyasia Weldon PA-C) T2DM (type 2 diabetes mellitus) Enlarged thoracic aorta Echo 06/2024: Proximal ascending thoracic aorta is moderately enlarged, 4.6 cm Dilated aortic root Echo 06/2024: Moderately enlarged aortic root, 4.6 cm Environmental allergies Hx of transient ischemic attack (TIA) Several years ago (~), no issues since Atrial fibrillation Follows with [facility] Cardio Pneumomediastinum Hx 05/2024, [facility] admission Hx of sepsis 05/2024- after dental procedures > [facility] admission GERD (gastroesophageal reflux disease) Hypertension BPH (benign prostatic hyperplasia) Depression Restless leg syndrome Per records, patient unsure Prostate CA 2019 - XRT Surgical History Hx of colonoscopy History of penile implant Per records History of dental surgery Hx of tonsillectomy History of hernia surgery x2 History of total left knee replacement H/O vasectomy Family History Father , age 62 Heart disease Mother , ~70 y/o Heart disease Stroke Social History Smoking Status: Never smoker Second Hand Exposure: No; Do You Dip or Chew Tobacco: No; Hx Alcohol Use: Yes Alcohol type: beer Hx Substance Use: No Preferred Language: Senegalese Communication Ability: Effective Thumb Sewer Required: No Beliefs That Will Affect Care: None Current Living Situation: Spouse Current Living Situation Comment: lives with ahsan Feels Safe at Home: Yes Safety Concerns: Feels Safe At This Time Assistive Devices: None Review of Systems Review of Systems: All other findings negative except as noted in HPI. Physical Exam Constitutional: WD/WN, vitals as above Respiratory: normal respiratory effort Cardiovascular: Rate/Rhythm: regular rate and regular rhythm Gastrointestinal (Abdomen): normal bowel sounds, soft, nontender, no hepatosplenomegaly Skin: no rashes, warm and dry Results & Data Vital Signs (Past 12 Hours) Vital Signs Temp Pulse Pulse Resp BP BP Pulse Ox 08/26/24 11:00 102 H 22 133/90 94 08/26/24 10:45 95 H 22 125/89 94 08/26/24 10:30 95 H 22 140/93 94 08/26/24 10:15 102 H 94 H 141/94 H 93 08/26/24 10:00 108 H 24 129/93 93 08/26/24 10:00 98 H 20 141/94 H 94 08/26/24 09:31 103 H 23 139/84 94 08/26/24 09:00 107 H 24 167/102 H 92 08/26/24 08:30 105 H 19 160/89 H 94 08/26/24 08:09 104 H 18 147/93 H 93 08/26/24 08:05 103 H 19 147/93 H 93 08/26/24 07:51 107 H 08/26/24 07:37 98.6 F 108 H 21 149/93 H 94 O2 Del Method 08/26/24 11:00 08/26/24 10:45 08/26/24 10:30 08/26/24 10:15 08/26/24 10:00 08/26/24 10:00 Room Air 08/26/24 09:31 Room Air 08/26/24 09:00 08/26/24 08:30 08/26/24 08:09 Room Air 08/26/24 08:05 08/26/24 07:51 08/26/24 07:37 Room Air Laboratory Results 08/26/24 08/26/24 08/26/24 Range/Units 11:44 09:23 08:05 WBC (4.8-10.8) K/ul RBC (4.70-6.10) M/uL Hgb (14.0-18.0) g/dl Hct (42.0-52.0) % MCV (80.0-100.0) fL MCH (25.0-34.0) pg MCHC (32.0-36.0) g/dL RDW Std Deviation (36.4-46.3) fL RDW Coeff of Carine (11.5-14.5) % Plt Count (130-400) K/uL MPV (9.4-12.4) fL Immature Gran % (Auto) % Neut % (Auto) % Lymph % (Auto) % [place] % (Auto) % Eos % (Auto) % Baso % (Auto) % Neut # (Auto) (1.40-6.50) K/uL Lymph # (Auto) (1.20-3.40) K/uL [place] # (Auto) (0.11-0.59) K/uL Eos # (Auto) (0.00-0.50) K/uL Baso # (Auto) (0.00-0.20) K/uL Immature Gran # (Auto) (0.01-0.20) K/uL Polychromasia PT (9.0-12.0) Seconds INR (0.9-1.1) Sodium (136-145) mmol/L Potassium (3.5-5.1) mmol/L Chloride (98-107) mmol/L Carbon Dioxide (21-32) mmol/L Anion Gap (3-11) BUN (6-23) mg/dl Creatinine (0.6-1.4) mg/dl Est Cr Clr Drug Dosing ml/min eGFR BUN/Creatinine Ratio (10-20) Glucose (70-99(Fasting)) mg/dl Calcium (8.6-10.3) mg/dl Magnesium (1.7-2.4) mg/dl Total Bilirubin (0.2-1.0) mg/dl AST (13-39) U/L ALT (7-52) U/L Alkaline Phosphatase (34-104) U/L Troponin I High Sens 62.7 H* D (0-20) pg/ml Total Protein (6.0-8.3) gm/dl Albumin (3.4-5.0) gm/dl Globulin (2.5-4.0) gm/dl Albumin/Globulin Ratio (0.9-2) Urine Color Yellow Urine Appearance Clear (Clear) Urine pH 5.0 (4.5-7.5) Ur Specific [place] 1.022 (1.000-1.030) Urine Protein Trace H (Negative) Urine Glucose (UA) Negative (Negative) Urine Ketones Trace H (Negative) Urine Blood Negative (Negative) Urine Nitrite Negative (Negative) Urine Bilirubin Negative (Negative) Urine Urobilinogen Negative (Negative) Ur Leukocyte Esterase Negative (Negative) Urine WBC (Auto) 0-5 (0-5) /hpf Urine RBC (Auto) 0-2 (0-2) /hpf U Hyaline Cast (Auto) 3-5 H (0-2) /lpf U Epithel Cells (Auto) 0-2 (0-2) /hpf Urine Bacteria (Auto) None Seen (None Seen) Stl C. cayetanensis PCR Pending Stool Rotavirus A PCR Pending Stl Adenov F 40/41 PCR Pending Stool Astrovirus (PCR) Pending Stool Campylobacter PCR Pending Stool Cryptosporidium PCR Pending Stl E.coli Shiga Tox PCR Pending Stl Enterotoxigenic E PCR Pending Stool EAEC (PCR) Pending Stl E. histolytica PCR Pending Stool Giardia Lamblia PCR Pending Stool Salmonella PCR Pending Stool Sapovirus (PCR) Pending Stl P. shigelloides PCR Pending Stl Shigella/EIEC PCR Pending St Y.enterocolitica PCR Pending Stool Vibrio (PCR) Pending Stl Vibrio cholerae PCR Pending Stl Norovirus GI/GII PCR Pending Adenovirus (PCR) (NotDetected) B. pertussis DNA (PCR) (NotDetected) B.parapertussis DNA PCR (NotDetected) C. pneumoniae DNA (PCR) (NotDetected) Coronavirus OC43 (PCR) (NotDetected) Coronavirus HKU1 (PCR) (NotDetected) Coronavirus 229E (PCR) (NotDetected) SARS-CoV-2 (PCR) (NotDetected) Coronavirus NL63 (PCR) (NotDetected) Human Metapneumovir PCR (NotDetected) Influenza Type A (PCR) (NotDetected) Influenza Type B (PCR) (NotDetected) M. pneumoniae (PCR) (NotDetected) Parainfluenza 1 (PCR) (NotDetected) Parainfluenza 2 (PCR) (NotDetected) Parainfluenza 3 (PCR) (NotDetected) Parainfluenza 4 (PCR) (NotDetected) RSV (PCR) (NotDetected) Entero/Rhino (PCR) (NotDetected) 08/26/24 08/26/24 Range/Units 07:41 07:40 WBC 12.60 H (4.8-10.8) K/ul RBC 5.01 (4.70-6.10) M/uL Hgb 14.6 (14.0-18.0) g/dl Hct 44.4 (42.0-52.0) % MCV 88.6 (80.0-100.0) fL MCH 29.1 (25.0-34.0) pg MCHC 32.9 (32.0-36.0) g/dL RDW Std Deviation 49.8 H (36.4-46.3) fL RDW Coeff of Carine 15.3 H (11.5-14.5) % Plt Count 216 (130-400) K/uL MPV 10.8 (9.4-12.4) fL Immature Gran % (Auto) 0.5 % Neut % (Auto) 92.5 % Lymph % (Auto) 2.9 % [place] % (Auto) 4.0 % Eos % (Auto) 0.0 % Baso % (Auto) 0.1 % Neut # (Auto) 11.65 H (1.40-6.50) K/uL Lymph # (Auto) 0.37 L (1.20-3.40) K/uL [place] # (Auto) 0.51 (0.11-0.59) K/uL Eos # (Auto) 0.00 (0.00-0.50) K/uL Baso # (Auto) 0.01 (0.00-0.20) K/uL Immature Gran # (Auto) 0.06 (0.01-0.20) K/uL Polychromasia 1+ PT 11.4 (9.0-12.0) Seconds INR 1.1 (0.9-1.1) Sodium 135 L (136-145) mmol/L Potassium 4.2 (3.5-5.1) mmol/L Chloride 101 (98-107) mmol/L Carbon Dioxide 26 (21-32) mmol/L Anion Gap 8 (3-11) BUN 13 (6-23) mg/dl Creatinine 1.22 (0.6-1.4) mg/dl Est Cr Clr Drug Dosing 64.9 ml/min eGFR 61.44 BUN/Creatinine Ratio 10.7 (10-20) Glucose 197 H (70-99(Fasting)) mg/dl Calcium 10.0 (8.6-10.3) mg/dl Magnesium 1.7 (1.7-2.4) mg/dl Total Bilirubin 1.2 H (0.2-1.0) mg/dl AST 19 (13-39) U/L ALT 19 (7-52) U/L Alkaline Phosphatase 47 (34-104) U/L Troponin I High Sens 52.3 H* (0-20) pg/ml Total Protein 6.9 (6.0-8.3) gm/dl Albumin 4.2 (3.4-5.0) gm/dl Globulin 2.7 (2.5-4.0) gm/dl Albumin/Globulin Ratio 1.6 (0.9-2) Urine Color Urine Appearance (Clear) Urine pH (4.5-7.5) Ur Specific [place] (1.000-1.030) Urine Protein (Negative) Urine Glucose (UA) (Negative) Urine Ketones (Negative) Urine Blood (Negative) Urine Nitrite (Negative) Urine Bilirubin (Negative) Urine Urobilinogen (Negative) Ur Leukocyte Esterase (Negative) Urine WBC (Auto) (0-5) /hpf Urine RBC (Auto) (0-2) /hpf U Hyaline Cast (Auto) (0-2) /lpf U Epithel Cells (Auto) (0-2) /hpf Urine Bacteria (Auto) (None Seen) Stl C. cayetanensis PCR Stool Rotavirus A PCR Stl Adenov F 40/41 PCR Stool Astrovirus (PCR) Stool Campylobacter PCR Stool Cryptosporidium PCR Stl E.coli Shiga Tox PCR Stl Enterotoxigenic E PCR Stool EAEC (PCR) Stl E. histolytica PCR Stool Giardia Lamblia PCR Stool Salmonella PCR Stool Sapovirus (PCR) Stl P. shigelloides PCR Stl Shigella/EIEC PCR St Y.enterocolitica PCR Stool Vibrio (PCR) Stl Vibrio cholerae PCR Stl Norovirus GI/GII PCR Adenovirus (PCR) Not Detected (NotDetected) B. pertussis DNA (PCR) Not Detected (NotDetected) B.parapertussis DNA PCR Not Detected (NotDetected) C. pneumoniae DNA (PCR) Not Detected (NotDetected) Coronavirus OC43 (PCR) Not Detected (NotDetected) Coronavirus HKU1 (PCR) Not Detected (NotDetected) Coronavirus 229E (PCR) Not Detected (NotDetected) SARS-CoV-2 (PCR) Not Detected (NotDetected) Coronavirus NL63 (PCR) Not Detected (NotDetected) Human Metapneumovir PCR Not Detected (NotDetected) Influenza Type A (PCR) Not Detected (NotDetected) Influenza Type B (PCR) Not Detected (NotDetected) M. pneumoniae (PCR) Not Detected (NotDetected) Parainfluenza 1 (PCR) Not Detected (NotDetected) Parainfluenza 2 (PCR) Not Detected (NotDetected) Parainfluenza 3 (PCR) Not Detected (NotDetected) Parainfluenza 4 (PCR) Not Detected (NotDetected) RSV (PCR) Not Detected (NotDetected) Entero/Rhino (PCR) Not Detected (NotDetected) PG Care Time/CCT Total # of Minutes Spent Total Time Spent with Patient: Total time spent is greater than 50% in coordination of care (as documented) at patient's floor/unit and/or counseling patient: Coding Level of Care Code 98666 INT INP/OBS CARE MIN Diagnoses Fall W19.XXXA
[2024-08-26 13:22] LABS: Adenovirus F 40/41 PCR Not Detected (NotDetected); Astrovirus PCR Not Detected (NotDetected); Campylobacter PCR Not Detected (NotDetected); Cryptosporidium PCR Not Detected (NotDetected); Cyclospora cayetanensis PCR Not Detected (NotDetected); Entamoeba histolytica PCR Not Detected (NotDetected); Enteroaggregative E.coli(EAEC) Not Detected (NotDetected); Enteropathogenic E.coli (EPEC) Not Detected (NotDetected); Enterotoxigenic E.coli (ETEC) Not Detected (NotDetected); Giardia lamblia PCR Not Detected (NotDetected); Norovirus GI/GII PCR Not Detected (NotDetected); Plesiomonas shigelloides PCR Not Detected (NotDetected); Rotavirus A PCR Not Detected (NotDetected); Salmonella PCR Not Detected (NotDetected); Sapovirus PCR Not Detected (NotDetected); Shiga-like Toxin E.coli (STEC) Not Detected (NotDetected); Shigella/Enteroinvasive E.coli Not Detected (NotDetected); Vibrio cholerae PCR Not Detected (NotDetected); Vibrio species PCR Not Detected (NotDetected); Yersinia enterocolitica PCR Not Detected (NotDetected)
[2024-08-26] MEDS: traMADol HCL 50 MG TABLET PO STA (13:50)
--- NOTE | 2024-08-26 15:00 | Electrocardiogram Report ---
Test Reason : Blood Pressure : */* mmHG Vent. Rate : 106 BPM Atrial Rate : 106 BPM P-R Int : 186 ms QRS Dur : 94 ms QT Int : 356 ms P-R-T Axes : 85 -70 69 degrees QTcB Int : 472 ms Sinus tachycardia with Premature supraventricular complexes Incomplete right bundle branch block Left anterior fascicular block Moderate voltage criteria for LVH, may be normal variant Abnormal ECG When compared with ECG of 09-May-2022 17:31, Premature supraventricular complexes are now Present Confirmed by Prashanth Poon ([id number]) on 08/26/2024 3:00:11 PM Referred By: Confirmed By: Prashanth Poon
--- NOTE | 2024-08-26 15:05 | Electrocardiogram Report ---
Test Reason : Blood Pressure : */* mmHG Vent. Rate : 102 BPM Atrial Rate : 102 BPM P-R Int : 186 ms QRS Dur : 94 ms QT Int : 356 ms P-R-T Axes : 45 -69 66 degrees QTcB Int : 463 ms Sinus tachycardia with Premature atrial complexes Incomplete right bundle branch block Left anterior fascicular block Moderate voltage criteria for LVH, may be normal variant Abnormal ECG When compared with ECG of 26-Aug-2024 07:31, (unconfirmed) No significant change was found Confirmed by Prashanth Poon ([id number]) on 08/26/2024 3:05:19 PM Referred By: REFERRED SELF Confirmed By: Prashanth Poon
--- NOTE | 2024-08-26 15:09 | Ultrasound Report ---
ULTRASOUND OF THE CAROTID ARTERIES CLINICAL HISTORY: lightheaded TECHNIQUE: Real-time, grayscale, and color Doppler sonography of the bilateral carotid arteries is pe rformed. Images are reviewed in the transverse and longitudinal planes. COMPARISON: Comparison is made to CTA neck 05/29/2022 FINDINGS: The carotid arteries are patent bilaterally and demonstrate antegrade flow. There is mild atheroscler otic plaque on the right and mild atherosclerotic plaque on the left. Normal doppler arterial wavefor ms are seen throughout. Velocity measurements are listed below. Common carotid peak systolic velocity (cm/sec): RIGHT: 63 LEFT: 97 ICA peak systolic velocity (cm/sec): RIGHT: 78 LEFT: 93 ICA/CC peak systolic ratio: RIGHT: 1.2 LEFT: 0.9 Antegrade flow was shown in the vertebral arteries. The external carotid arteries are patent. IMPRESSION: 1. There is no sonographic evidence of hemodynamically significant stenosis in the right or left car otid arterial system. 2. Antegrade flow is shown in the vertebral arteries. Society of Radiologists in Ultrasound consensus guidelines: Normal: ICA PSV is <125 cm/sec and no plaque or intimal thickening is visible sonographically additional criteria include ICA/CCA PSV ratio <2.0 and ICA EDV <40 cm/sec <50% ICA stenosis: ICA PSV is <125 cm/sec and plaque or intimal thickening is visible sonographically additional criteria include ICA/CCA PSV ratio <2.0 and ICA EDV <40 cm/sec 50-69% ICA stenosis: ICA PSV is 125-230 cm/sec and plaque is visible sonographically additional criteria include ICA/CCA PSV ratio of 2.0-4.0 and ICA EDV of 40-100 cm/sec ?70% ICA stenosis but less than near occlusion: ICA PSV is >230 cm/sec and visible plaque and luminal narrowing are seen at powell-scale and color Dopp ler ultrasound (the higher the Doppler parameters lie above the threshold of 230 cm/sec, the greater the likelihood of severe disease) additional criteria include ICA/CCA PSV ratio >4 and ICA EDV >100 cm/sec ACT 112: Negative or not required by law. Electronically signed by: Richard Kitchen M.D. 08/26/2024 3:08 PM
[2024-08-26] MEDS ORDERED: GLUCAGON FOR INJ 1 MG VIAL SQ PRN (15:12)
[2024-08-26] MEDS ORDERED: GLUCOSE 10 TAB/TUBE PO PRN (15:12)
[2024-08-26] MEDS ORDERED: GLUCOSE 40% GEL 15 GM TUBE PO PRN (15:12)
[2024-08-26] MEDS ORDERED: FAMOTIDINE 20 MG TAB PO PRN (15:12)
[2024-08-26] MEDS ORDERED: CARBOHYDRATES FOR HYPOGLYCEMIA PO PRN (15:12)
[2024-08-26] MEDS ORDERED: ONDANSETRON INJ 2 MG/ML 2 ML VIAL IV PRN (15:12)
[2024-08-26] MEDS ORDERED: DEXTROSE 50% 50 ML SYRINGE IV PRN (15:12)
[2024-08-26] MEDS ORDERED: MoRPHine SULFATE 2 MG/ML CARP IV PRN (16:03)
[2024-08-26] MEDS: oxyCODONE HCL IR 5 MG TAB (IMMEDIATE RELEASE) PO PRN (16:31)
[2024-08-26] MEDS: SODIUM CHLORIDE 0.9% 1,000 ML IV SCH (16:32)
[2024-08-26] MEDS: INSULIN ASPART PER UNIT CHARGE SC SCH (17:58)
[2024-08-26] MEDS: LIDOCAINE 5% 1 PATCH TD SCH (17:58)
[2024-08-26] MEDS: METOPROLOL SUCC 50MG EXT REL TAB PO SCH (18:26)
[2024-08-26] MEDS: AZELASTINE HCL 0.1% NASAL 200 SPRAYS/27,400 MCG BTL SCH (21:14)
[2024-08-26] MEDS: ACETAMINOPHEN 325 MG TAB PO PRN (21:14)
[2024-08-26] MEDS: MELATONIN 3 MG TAB PO SCH (21:14)
--- NOTE | 2024-08-26 22:28 | CT Scan Report ---
Exam(s): CT HEAD Without Contrast EXAM: CT Head Without Intravenous Contrast CLINICAL HISTORY: Reason for exam: unwitnessed fall. on eliquis. TECHNIQUE: Axial computed tomography images of the head/brain without intravenous contrast. CTDI is 37.42 mGy and DLP is 624.41 mGy-cm. Automated exposure control was utilized for the study. A dose lowering technique was utilized adhering to the principles of ALARA. COMPARISON: Prior head CT from August 26, 2024 at 7:45 AM. FINDINGS: Brain: Unremarkable. No hemorrhage. Mild nonspecific white matter changes.. No edema. Ventricles: Unremarkable. No ventriculomegaly. Bones/joints: Unremarkable. No acute fracture. Soft tissues: Unremarkable. Sinuses: Unremarkable as visualized. No acute sinusitis. Mastoid air cells: Unremarkable as visualized. No mastoid effusion. IMPRESSION: No evidence for acute intracranial pathology. Electronically signed by: Lynn Baker MD 08/26/24 22:27 PM
[2024-08-26] MEDS: APIXABAN 5 MG TABLET PO SCH (22:34)
[2024-08-27 06:21] LABS: Basophils # (auto) 0.01 K/uL (0.00-0.20); Basophils % (auto) 0.1 %; Eosinophils # (auto) 0.01 K/uL (0.00-0.50); Eosinophils % (auto) 0.1 %; Hematocrit (blood only) 42.3 % (42.0-52.0); Immature Granulocytes # (auto) 0.02 K/uL (0.01-0.20); Immature Granulocytes % (auto) 0.2 %; Lymphocytes # (auto) 0.86 K/uL (1.20-3.40); Lymphocytes % (auto) 10.4 %; Mean Corpuscular Hemoglobin 29.4 pg (25.0-34.0); Mean Corpuscular Hgb Conc 33.1 g/dL (32.0-36.0); Mean Corpuscular Volume 88.9 fL (80.0-100.0); Mean Platelet Volume 11.3 fL (9.4-12.4); Monocytes # (auto) 0.96 K/uL (0.11-0.59); Monocytes % (auto) 11.6 %; Neutrophils # (auto) 6.41 K/uL (1.40-6.50); Neutrophils % (auto) 77.6 %; Platelet Count 187 K/uL (130-400); RDW Coefficient of Variation 15.7 % (11.5-14.5); RDW Standard Deviation 51.2 fL (36.4-46.3); Red Blood Count 4.76 M/uL (4.70-6.10); White Blood Count 8.27 K/ul (4.8-10.8)
[2024-08-27 06:33] LABS: Calcium 9.1 mg/dl (8.6-10.3); Chol HDL Ratio 3.4 (0-5); Creatinine Clr Calc Pharmacy 59.6 ml/min; Magnesium 1.7 mg/dl (1.7-2.4)
[2024-08-27] MEDS: MULTIVITAMIN TAB PO SCH (07:21)
[2024-08-27] MEDS: ESCITALOPRAM OXALATE 10 MG TAB PO SCH (07:21)
[2024-08-27] MEDS: METOPROLOL SUCC 50MG EXT REL TAB PO SCH (07:22)
[2024-08-27] MEDS: ROSUVASTATIN CALCIUM 10 MG TAB PO SCH (07:22)
[2024-08-27] MEDS: PANTOprazole 40 MG TAB PO SCH (07:22)
[2024-08-27 07:26] LABS: Estimated Average Glucose 140 mg/dl; Hemoglobin A1C 6.5 % (4.5-5.6)
[2024-08-27] MEDS ORDERED: lisinopril 40 MG TAB PO SCH (09:00)
--- NOTE | 2024-08-27 10:16 | Gastroenterology Progress Note ---
Date of Service August 27, 2024 Assessment & Plan (1) Fall: (2) Diarrhea: Plan 74 year old male w/ history of T2DM, PAF on eliquis, hx of TIA, HTN, HLD, dilated aortic root, aneurysm of aorta, CKD stage III, BPH, RLS, depression and history of prostate cancer s/p ERBT with hormone therapy in 2020 admitted through the ED following a fall - GI asked to evaluate for diarrhea which has been ongoing for months. Recent EGD/Colonoscopy arrange through [facility] for symptoms w/ negative biopsies - Stool PCR negative - Check c.diff - KUB for stool burden - Consider abdominal imaging w/ CT to rule out any sinister pathology - Pending above, will discuss treatment options for his symptoms I spent a total of 40 minutes on the date of service in review of patient's record, and previously obtained information in person and appropriate medical visit, discussion and education of plan, with patient and/or caregiver, placing orders for tests/referral/procedures as medically necessary and documentation of pertinent clinical information in patient's medical records for their visit tod . Admission and Anticipated Discharge Date Admission Date: August 26, 2024 Supervising Physician Co-Signing Physician Notes Apparently history of alternating constipation and diarrhea on further questioning. He does have some mild stool retention. Question overflow. Lets give him a Fleet enema x 1 await C. difficile. If continues to have significant bowel frequency C. difficile negative could consider just symptomatic treatment with Imodium Subjective Notes he had liquid stools early this AM. Brown. Large volume. He now recalls that after these bouts of diarrhea w/ large evacuation he often time experiences constipation without BMs in 5 days. Suggests now these events are somewhat cyclical. Stool PCR negative. C.diff not obtained. No abd imaging. Pathology 2023: A. Duodenum, biopsy: Duodenal mucosa with focal hyperemia feature consistent with erosion /mild chronic duodenitis. No villous blunting, significant active inflammation or intraepithelial lymphocytosis.B. Stomach, biopsy: Gastric oxyntic mucosa with hyperemia and minimal chronic inflammation. No H.pylori like organism identified.C. Esophagus, biopsy: mucosa with finding consistent with reflux esophagitis. See note.No diagnostic evidence of intestinal metaplasia or dysplasia identified.D. Colon, biopsy: Colonic mucosa with no significant histopathologic changes.Note for part D: Tissue sections of the colon biopsies reveal unremarkable colonic mucosa. No significant active inflammation, dysplasia, or evidence of microscopic colitis identified.E. Colon, descending, polyp, polypectomy: Tubular adenoma. EGD 2023: Normal upper third of esophagus and middle third of esophagus. - LA Grade B reflux esophagitis with no bleeding. Biopsied. - Gastritis. Biopsied. - Duodenitis. Biopsied. Colonoscopy 2023: Hemorrhoids found on perianal exam. - The examined portion of the ileum was normal. - Normal mucosa in the entire examined colon. Biopsied. - One 5 mm polyp in the descending colon, removed with a cold snare. Resected and retrieved. - Internal hemorrhoids. - Mild diverticulosis in the sigmoid colon. - Multiple non-bleeding colonic angioectasias consistent with known radiation proctitis. Review of Systems Review of Systems: All other findings negative except as noted in HPI. Physical Exam Constitutional: WD/WN, vitals as above Respiratory: normal respiratory effort, lungs clear to auscultation Cardiovascular: Rate/Rhythm: regular rate and regular rhythm Gastrointestinal (Abdomen): normal bowel sounds, soft, nontender, no hepatosplenomegaly Skin: no rashes, warm and dry Results & Data Results & Data Vital Signs (Past 12 Hours) Vital Signs Temp Pulse Pulse Resp BP Pulse Ox O2 Del Method 08/27/24 09:26 89 08/27/24 07:12 98.1 F 82 18 154/102 H 82 L Room Air 08/27/24 02:53 98.1 F 90 18 127/92 97 Room Air 08/26/24 23:45 103 H 08/26/24 22:48 99.0 F 109 H 18 129/85 93 Room Air Laboratory Results 08/27/24 08/27/24 08/26/24 Range/Units 07:50 05:32 20:59 WBC 8.27 (4.8-10.8) K/ul RBC 4.76 (4.70-6.10) M/uL Hgb 14.0 (14.0-18.0) g/dl Hct 42.3 (42.0-52.0) % MCV 88.9 (80.0-100.0) fL MCH 29.4 (25.0-34.0) pg MCHC 33.1 (32.0-36.0) g/dL RDW Std Deviation 51.2 H (36.4-46.3) fL RDW Coeff of Carine 15.7 H (11.5-14.5) % Plt Count 187 (130-400) K/uL MPV 11.3 (9.4-12.4) fL Immature Gran % (Auto) 0.2 % Neut % (Auto) 77.6 % Lymph % (Auto) 10.4 % Millard % (Auto) 11.6 % Eos % (Auto) 0.1 % Baso % (Auto) 0.1 % Neut # (Auto) 6.41 (1.40-6.50) K/uL Lymph # (Auto) 0.86 L (1.20-3.40) K/uL Millard # (Auto) 0.96 H (0.11-0.59) K/uL Eos # (Auto) 0.01 (0.00-0.50) K/uL Baso # (Auto) 0.01 (0.00-0.20) K/uL Immature Gran # (Auto) 0.02 (0.01-0.20) K/uL Sodium 135 L (136-145) mmol/L Potassium 4.0 (3.5-5.1) mmol/L Chloride 103 (98-107) mmol/L Carbon Dioxide 25 (21-32) mmol/L Anion Gap 7 (3-11) BUN 17 (6-23) mg/dl Creatinine 1.31 (0.6-1.4) mg/dl Est Cr Clr Drug Dosing 59.6 ml/min eGFR 56.41 BUN/Creatinine Ratio 13.0 (10-20) Glucose 144 H (70-99(Fasting)) mg/dl POC Glucose 139 H (70-99) mg/dl Estimat Average Glucose 140 mg/dl Hemoglobin A1c 6.5 H (4.5-5.6) % Calcium 9.1 (8.6-10.3) mg/dl Magnesium 1.7 (1.7-2.4) mg/dl Troponin I High Sens 109.6 H* D (0-20) pg/ml Triglycerides 94 (0-150) mg/dl Cholesterol 123 (0-200) mg/dl LDL Cholesterol, Calc 68 mg/dl VLDL Cholesterol, Calc 19 (0-30) mg/dl HDL Cholesterol 36 mg/dl Cholesterol/HDL Ratio 3.4 (0-5) Stl C. cayetanensis PCR (NotDetected) Stool Rotavirus A PCR (NotDetected) Stl Adenov F 40/41 PCR (NotDetected) Stool Astrovirus (PCR) (NotDetected) Stool Campylobacter PCR (NotDetected) Stool Cryptosporidium PCR (NotDetected) Stl E.coli Shiga Tox PCR (NotDetected) Stl Enterotoxigenic E PCR (NotDetected) Stool EPEC (PCR) (NotDetected) Stool EAEC (PCR) (NotDetected) Stl E. histolytica PCR (NotDetected) Stool Giardia Lamblia PCR (NotDetected) Stool Salmonella PCR (NotDetected) Stool Sapovirus (PCR) (NotDetected) Stl P. shigelloides PCR (NotDetected) Stl Shigella/EIEC PCR (NotDetected) St Y.enterocolitica PCR (NotDetected) Stool Vibrio (PCR) (NotDetected) Stl Vibrio cholerae PCR (NotDetected) Stl Norovirus GI/GII PCR (NotDetected) 08/26/24 08/26/24 08/26/24 Range/Units 20:21 16:57 15:25 WBC (4.8-10.8) K/ul RBC (4.70-6.10) M/uL Hgb (14.0-18.0) g/dl Hct (42.0-52.0) % MCV (80.0-100.0) fL MCH (25.0-34.0) pg MCHC (32.0-36.0) g/dL RDW Std Deviation (36.4-46.3) fL RDW Coeff of Carine (11.5-14.5) % Plt Count (130-400) K/uL MPV (9.4-12.4) fL Immature Gran % (Auto) % Neut % (Auto) % Lymph % (Auto) % Millard % (Auto) % Eos % (Auto) % Baso % (Auto) % Neut # (Auto) (1.40-6.50) K/uL Lymph # (Auto) (1.20-3.40) K/uL Millard # (Auto) (0.11-0.59) K/uL Eos # (Auto) (0.00-0.50) K/uL Baso # (Auto) (0.00-0.20) K/uL Immature Gran # (Auto) (0.01-0.20) K/uL Sodium (136-145) mmol/L Potassium (3.5-5.1) mmol/L Chloride (98-107) mmol/L Carbon Dioxide (21-32) mmol/L Anion Gap (3-11) BUN (6-23) mg/dl Creatinine (0.6-1.4) mg/dl Est Cr Clr Drug Dosing ml/min eGFR BUN/Creatinine Ratio (10-20) Glucose (70-99(Fasting)) mg/dl POC Glucose 191 H 129 H (70-99) mg/dl Estimat Average Glucose mg/dl Hemoglobin A1c (4.5-5.6) % Calcium (8.6-10.3) mg/dl Magnesium (1.7-2.4) mg/dl Troponin I High Sens 83.4 H* D (0-20) pg/ml Triglycerides (0-150) mg/dl Cholesterol (0-200) mg/dl LDL Cholesterol, Calc mg/dl VLDL Cholesterol, Calc (0-30) mg/dl HDL Cholesterol mg/dl Cholesterol/HDL Ratio (0-5) Stl C. cayetanensis PCR (NotDetected) Stool Rotavirus A PCR (NotDetected) Stl Adenov F 40/41 PCR (NotDetected) Stool Astrovirus (PCR) (NotDetected) Stool Campylobacter PCR (NotDetected) Stool Cryptosporidium PCR (NotDetected) Stl E.coli Shiga Tox PCR (NotDetected) Stl Enterotoxigenic E PCR (NotDetected) Stool EPEC (PCR) (NotDetected) Stool EAEC (PCR) (NotDetected) Stl E. histolytica PCR (NotDetected) Stool Giardia Lamblia PCR (NotDetected) Stool Salmonella PCR (NotDetected) Stool Sapovirus (PCR) (NotDetected) Stl P. shigelloides PCR (NotDetected) Stl Shigella/EIEC PCR (NotDetected) St Y.enterocolitica PCR (NotDetected) Stool Vibrio (PCR) (NotDetected) Stl Vibrio cholerae PCR (NotDetected) Stl Norovirus GI/GII PCR (NotDetected) 08/26/24 Range/Units 11:44 WBC (4.8-10.8) K/ul RBC (4.70-6.10) M/uL Hgb (14.0-18.0) g/dl Hct (42.0-52.0) % MCV (80.0-100.0) fL MCH (25.0-34.0) pg MCHC (32.0-36.0) g/dL RDW Std Deviation (36.4-46.3) fL RDW Coeff of Carine (11.5-14.5) % Plt Count (130-400) K/uL MPV (9.4-12.4) fL Immature Gran % (Auto) % Neut % (Auto) % Lymph % (Auto) % Millard % (Auto) % Eos % (Auto) % Baso % (Auto) % Neut # (Auto) (1.40-6.50) K/uL Lymph # (Auto) (1.20-3.40) K/uL Millard # (Auto) (0.11-0.59) K/uL Eos # (Auto) (0.00-0.50) K/uL Baso # (Auto) (0.00-0.20) K/uL Immature Gran # (Auto) (0.01-0.20) K/uL Sodium (136-145) mmol/L Potassium (3.5-5.1) mmol/L Chloride (98-107) mmol/L Carbon Dioxide (21-32) mmol/L Anion Gap (3-11) BUN (6-23) mg/dl Creatinine (0.6-1.4) mg/dl Est Cr Clr Drug Dosing ml/min eGFR BUN/Creatinine Ratio (10-20) Glucose (70-99(Fasting)) mg/dl POC Glucose (70-99) mg/dl Estimat Average Glucose mg/dl Hemoglobin A1c (4.5-5.6) % Calcium (8.6-10.3) mg/dl Magnesium (1.7-2.4) mg/dl Troponin I High Sens (0-20) pg/ml Triglycerides (0-150) mg/dl Cholesterol (0-200) mg/dl LDL Cholesterol, Calc mg/dl VLDL Cholesterol, Calc (0-30) mg/dl HDL Cholesterol mg/dl Cholesterol/HDL Ratio (0-5) Stl C. cayetanensis PCR Not Detected (NotDetected) Stool Rotavirus A PCR Not Detected (NotDetected) Stl Adenov F 40/41 PCR Not Detected (NotDetected) Stool Astrovirus (PCR) Not Detected (NotDetected) Stool Campylobacter PCR Not Detected (NotDetected) Stool Cryptosporidium PCR Not Detected (NotDetected) Stl E.coli Shiga Tox PCR Not Detected (NotDetected) Stl Enterotoxigenic E PCR Not Detected (NotDetected) Stool EPEC (PCR) Not Detected (NotDetected) Stool EAEC (PCR) Not Detected (NotDetected) Stl E. histolytica PCR Not Detected (NotDetected) Stool Giardia Lamblia PCR Not Detected (NotDetected) Stool Salmonella PCR Not Detected (NotDetected) Stool Sapovirus (PCR) Not Detected (NotDetected) Stl P. shigelloides PCR Not Detected (NotDetected) Stl Shigella/EIEC PCR Not Detected (NotDetected) St Y.enterocolitica PCR Not Detected (NotDetected) Stool Vibrio (PCR) Not Detected (NotDetected) Stl Vibrio cholerae PCR Not Detected (NotDetected) Stl Norovirus GI/GII PCR Not Detected (NotDetected) PG Care Time/CCT Total # of Minutes Spent Total Time Spent with Patient: Total time spent is greater than 50% in coordination of care (as documented) at patient's floor/unit and/or counseling patient: Coding Level of Care Code 55081 SUB INP/OBS CARE 2/35MIN Diagnoses Fall W19.XXXA Diarrhea R19.7
--- NOTE | 2024-08-27 12:21 | Cardiology Progress Note ---
Date of Service August 27, 2024 Assessment & Plan (1) Dizziness: (2) PAF (paroxysmal atrial fibrillation): (3) Diarrhea: (4) Orthostasis: (5) Elevated troponin: Plan 08/26/24: Patient admitted with recurrent lightheadedness, causing a fall and striking his head. Negative head CT. His recent lightheadedness, coincides with worsening diarrheal illness, likely orthostasis. GI consulted and stool tests pending. Recommend gentle hydration. Hold lisinopril. Amlodipine was on hold over the last few months due to hypotension. He reports he has not been taking. Monitor BP. Resume lisinopril as needed. He does report compliance with Eliquis and metoprolol 100 mg in AM and 50 mg in afternoon. No known recurrence of afib. Continue metoprolol 100 mg in AM and 50 mg in AM continue Eliquis 5 mg BID Monitor on telemetry for jose ramon/tachyarrhythmias. Consider outpatient ZIO monitor EKG demonstrated sinus tachycardia without acute ST/T wave abnormalities. Patient did not yet take morning metoprolol at time of EKG. Minimally elevated troponin at 52 and 63 without anginal complaints or acute ST changes on EKG. Likely demand ischemia in setting of acute illness. Not indicative of ACS. Echo pending. 08/27/24: Patient's dizziness/orthostasis improving with IV fluids Antihypertensives were on hold since admission (amlodipine and lisinopril) BP trending upward. Resume lower dose lisinopril 10 mg. Patient maintaining NSR. Continue metoprolol 100 mg in AM and 50 mg in PM Continue Eliquis 5 mg BID Echo with preserved LVEF. No wall motion abnormalities. Minimally elevated HS troponin noted on admission. would recommend outpatient nuclear stress test upon discharge along with outpatient ZIO to r/o tachybrady arrhythmias with dizziness. Case discussed with Dr. Faisal Baugh spent a total of 30 minutes on the date of service in preparation, delivery, and documentation of the care provided to this patient, excluding any time spent in the performance of separately billed services. Nyasia Weldon PA-C Department of Cardiology, [facility] This chart was completed in part utilizing Speech Voice Recognition Software. Grammatical errors, random word insertions, pronoun errors, and incomplete sentences are an occasional consequence of this system due to software limitations, ambient noise, and hardware issues. Any formal questions or concerns about the content, text, or information contained within the body of this dictation should be directly addressed to the provider for clarification. Admission and Anticipated Discharge Date Admission Date: August 26, 2024 Supervising Physician Co-Signing Physician Notes Patient seen and personally examined. Full assessment and as outlined by advanced provider. Care and management personally endorsed Patient clinically improving with likely orthostatic event on presentation Currently hemodynamically stable and blood pressures increasing plan as above r esume lisinopril continue metoprolol at current dosing, chronic anticoagulation Subjective Patient reports feeling better this morning in regards to dizziness/lightheadedness/weakness. Still having bouts of diarrhea. No abdominal pain. BP trending higher this morning. Review of Systems Review of Systems: All systems reviewed & are unremarkable except as noted in HPI & below Physical Exam Constitutional: WD/WN, vitals as above well developed; no acute distress Neck: normal visual inspection Respiratory: normal respiratory effort; no labored breathing Auscultation: lungs clear to auscultation bilaterally; no crackles and no rales Cardiovascular: Rate/Rhythm: regular rate and regular rhythm Heart Sounds: + murmur (II/ systolic murmur ) Vessels: no JVD Extremities: no edema Gastrointestinal (Abdomen): normal bowel sounds, soft, nontender, no hepatosplenomegaly Skin: no rashes, warm and dry Neurologic: PERRL, EOMI, accommodation nl, no face palsy, no dysarthria Psychiatric: A+Ox3, euthymic affect Results & Data Vital Signs (Past 12 Hours) Vital Signs Temp Pulse Pulse Resp BP Pulse Ox O2 Del Method 08/27/24 11:20 37.1 C 91 H 20 165/107 H 92 Room Air 08/27/24 09:26 89 08/27/24 07:12 36.7 C 82 18 154/102 H 82 L Room Air 08/27/24 02:53 36.7 C 90 18 127/92 97 Room Air Laboratory Results Cardiac Enzymes 08/26/24 08/26/24 Range/Units 15:25 20:59 Troponin I High Sens 83.4 H* D 109.6 H* D (0-20) pg/ml Lipids 08/27/24 Range/Units 05:32 Triglycerides 94 (0-150) mg/dl Cholesterol 123 (0-200) mg/dl HDL Cholesterol 36 mg/dl Cholesterol/HDL Ratio 3.4 (0-5) CBC 08/27/24 Range/Units 05:32 WBC 8.27 (4.8-10.8) K/ul RBC 4.76 (4.70-6.10) M/uL Hgb 14.0 (14.0-18.0) g/dl Hct 42.3 (42.0-52.0) % Plt Count 187 (130-400) K/uL Neut # (Auto) 6.41 (1.40-6.50) K/uL Lymph # (Auto) 0.86 L (1.20-3.40) K/uL Marion # (Auto) 0.96 H (0.11-0.59) K/uL Eos # (Auto) 0.01 (0.00-0.50) K/uL Baso # (Auto) 0.01 (0.00-0.20) K/uL Comprehensive Metabolic Panel 08/27/24 Range/Units 05:32 Sodium 135 L (136-145) mmol/L Potassium 4.0 (3.5-5.1) mmol/L Chloride 103 (98-107) mmol/L Carbon Dioxide 25 (21-32) mmol/L BUN 17 (6-23) mg/dl Creatinine 1.31 (0.6-1.4) mg/dl Glucose 144 H (70-99(Fasting)) mg/dl Calcium 9.1 (8.6-10.3) mg/dl Intake and Output 08/26/24 08/27/24 08/27/24 22:59 06:59 14:59 Intake Total 100 / 1260 1060 / 1260 Output Total 225 / 226 Balance -125 / 1034 1059 / 1034 Intake: IV 960 / 1060 Sodium Chloride 0.9% 1,000 ml @ 960 / 960 80 mls/hr IV .[id number] [facility]NA Rx#: [id number] Oral 100 / 200 100 / 200 Output: Urine 225 / 225 # Bowel Movements Other: # Unmeasured Voids 2 Weight 103.4 kg 103.3 kg Weight Measurement Method Built in [facility] Diagnostic Findings Telemetry reviewed: NSR in the 's. echo reviewed: Normal LVEF at 65-70% Moderate LVH Grade II diastolic dysfunction Aortic valve sclerosis without significant aortic valve stenosis Moderate aortic root dilatation and ascending aortic dilatation at 4.6 cm Medications Administered Current Inpatient Medications Acetaminophen (Acetaminophen 325 Mg Tab) 650 mg PO Q4H PRN PRN Reason: Pain or Fever Stop: 09/25/24 15:11 Last Admin: 08/27/24 11:16 Dose: 650 mg Apixaban (Apixaban 5 Mg Tablet) 5 mg PO BID [facility] Stop: 09/25/24 20:59 Last Admin: 08/27/24 07:20 Dose: 5 mg Azelastine HCl (Azelastine Hcl 0.1% Nasal 200 Sprays/27,400 Mcg Btl) 1 sprays NA [facility] Stop: 09/25/24 20:59 Last Admin: 08/27/24 07:20 Dose: 1 sprays Dextrose (Dextrose 50% 50 Ml Syringe) 25 - 50 ml IV UD PRN; Protocol PRN Reason: Hypoglycemia Protocol Stop: 09/25/24 15:11 Escitalopram Oxalate (Escitalopram Oxalate 10 Mg Tab) 10 mg PO QAM [facility] Stop: 09/26/24 08:59 Last Admin: 08/27/24 07:21 Dose: 10 mg Famotidine (Famotidine 20 Mg Tab) 20 mg PO DAILY PRN PRN Reason: Heartburn Stop: 09/25/24 15:11 Glucagon (Glucagon For Inj 1 Mg Vial) 1 mg SQ UD PRN; Protocol PRN Reason: Hypoglycemia Protocol Stop: 09/25/24 15:11 Glucose (Glucose 40% Gel 15 Gm Tube) 15 - 30 gm PO UD PRN; Protocol PRN Reason: Hypoglycemia Protocol Stop: 09/25/24 15:11 Glucose (Glucose 10 Tab/Tube) 4 - 8 tab PO UD PRN; Protocol PRN Reason: Hypoglycemia Protocol Stop: 09/25/24 15:11 Sodium Chloride (Nss) 1,000 mls @ 80 mls/hr IV .[id number] [facility] Stop: 08/27/24 15:11 Last Admin: 08/27/24 04:32 Dose: 80 mls/hr Insulin Aspart (Insulin Aspart Per Unit Charge) 0 units SC ACHS [facility] Stop: 09/25/24 16:29 Last Admin: 08/27/24 09:05 Dose: Not Given Lidocaine (Lidocaine 5% 1 Patch) 1 patch TD [facility] Stop: 09/25/24 16:14 Last Admin: 08/27/24 10:03 Dose: Not Given Lisinopril (Lisinopril 40 Mg Tab) [facility] Stop: 09/26/24 08:59 Melatonin (Melatonin 3 Mg Tab) 9 mg PO [facility] Stop: 09/25/24 20:59 Last Admin: 08/26/24 21:14 Dose: 9 mg Metoprolol Succinate (Metoprolol Succ 50mg Ext Rel Tab) 100 mg [facility] Stop: 09/26/24 08:59 Last Admin: 08/27/24 07:22 Dose: 100 mg Metoprolol Succinate (Metoprolol Succ 50mg Ext Rel Tab) 50 mg PO [facility] Stop: 09/25/24 20:59 Last Admin: 08/26/24 18:26 Dose: 50 mg Miscellaneous (Carbohydrates For Hypoglycemia ) 15 - 30 gm PO UD PRN PRN Reason: Hypoglycemia Protocol Stop: 09/25/24 15:11 Miscellaneous (Remove Lidoderm Patch) 1 each N/A DAILY@2100 [facility] Stop: 09/25/24 20:59 Last Admin: 08/26/24 21:15 Dose: 1 each Morphine Sulfate (Morphine Sulfate 2 Mg/Ml Carp) 3 mg IV Q4H PRN PRN Reason: Severe Pain (Scale 7, 8, 9,10) Stop: 09/09/24 16:02 Multivitamins (Multivitamin Tab) 1 tab PO [facility] Stop: 09/26/24 08:59 Last Admin: 08/27/24 07:21 Dose: 1 tab Ondansetron HCl (Ondansetron Inj 2 Mg/Ml 2 Ml Vial) 4 mg IV Q6H PRN PRN Reason: Nausea Stop: 09/25/24 15:11 Oxycodone HCl (Oxycodone Hcl Ir 5 Mg Tab (Immediate Release)) 5 mg PO Q6H PRN PRN Reason: Moderate Pain (Scale 4, 5, 6) Stop: 09/09/24 16:02 Last Admin: 08/26/24 16:31 Dose: 5 mg Pantoprazole Sodium (Pantoprazole 40 Mg Tab) 40 mg PO [facility] Stop: 09/26/24 08:59 Last Admin: 08/27/24 07:22 Dose: 40 mg Rosuvastatin Calcium (Rosuvastatin Calcium 10 Mg Tab) 10 mg PO DAILY [facility] Stop: 09/26/24 08:59 Last Admin: 08/27/24 07:22 Dose: 10 mg
--- NOTE | 2024-08-27 12:56 | XRay Report ---
KUB HISTORY: comment on stool buden?overflowdiarrhea COMPARISON STUDY: None FINDINGS: There is mild retained stool. No bowel obstruction seen. No gross free air. Scoliosis and d egenerative changes are present of the lumbar spine. IMPRESSION: Mild retained stool. ACT 112: Negative or not required by law. The above report was generated using voice recognition software. It may contain grammatical, syntax o r spelling errors. Electronically signed by: Reynold Walton M.D. 08/27/2024 12:54 PM
[2024-08-27] MEDS ORDERED: oxyCODONE HCL IR 5 MG TAB (IMMEDIATE RELEASE) PO PRN (13:26)
--- NOTE | 2024-08-27 13:31 | Hospitalist Progress Note ---
Date of Service August 27, 2024 Assessment & Plan (1) Fall: (2) Chronic diarrhea of unknown origin: (3) Labile essential hypertension: (4) Demand ischemia: (5) Orthostasis: (6) PAF (paroxysmal atrial fibrillation): (7) T2DM (type 2 diabetes mellitus): Plan Patient presents with a fall most likely due to orthostasis from fluctuating blood pressures due to medications and relative volume depletion with ongoing chronic diarrhea. Patient ruled out for C. difficile infection Blood pressure now on the higher side with holding some of his blood pressure medications Cardiology recommendations reviewed, continue metoprolol and restart a lower dose lisinopril. Outpatient cardiac workup after discharge Patient reports 3 loose stools already this morning. Has not tried Lomotil or Imodium at prior to now. Will add Lomotil 2 times daily see how that will impact his diarrhea to minimize risks of volume depletion and hypotension from dehydration. Continue to monitor another 24 hours. Check orthostatics Anticipate possible discharge tomorrow if blood pressure stabilized and stools improved Admission and Anticipated Discharge Date Admission Date: August 27, 2024 Subjective Patient denies any further lightheadedness or dizziness. Reports 3 loose stools already this morning. Physical Exam Physical Exam: Constitutional: Alert, nontoxic HEENT: Mucous membranes moist. Lungs: Clear to auscultation, decreased, no wheezes rales or rhonchi CV: S1-S2, regular Abdomen: Soft, nontender, nondistended Extremities: No significant edema Neuro: No focal deficits Psych: Cooperative, eager to get home Results & Data Results & Data Vital Signs (Past 12 Hours) Vital Signs Temp Pulse Pulse Resp BP Pulse Ox O2 Del Method 08/27/24 11:20 37.1 C 91 H 20 165/107 H 92 Room Air 08/27/24 09:26 89 08/27/24 07:12 36.7 C 82 18 154/102 H 82 L Room Air 08/27/24 02:53 36.7 C 90 18 127/92 97 Room Air Diagnostic Findings Francesco diagnostics CBC stable Sodium 135 Rest electrolytes stable Creatinine 1.31, stable Hemoglobin A1c 6.5% Troponins reviewed C. difficile negative
[2024-08-27] MEDS: lisinopril 10 MG TAB PO SCH (13:36)
[2024-08-27] MEDS: DIPHENOXYLATE/ATROPINE 2.5/0.025MG TAB PO SCH (14:13)
[2024-08-27] MEDS ORDERED: ALPRAZolam 0.5 MG TABLET PO PRN (16:20)
[2024-08-27] MEDS: SOD PHOSPHATE/SOD BIPHOSPHATE ENEMA 132 ML BTL PR STA (17:48)
[2024-08-27] MEDS: SOD PHOSPHATE/SOD BIPHOSPHATE ENEMA 132 ML BTL PR ONE (17:48)
[2024-08-27] MEDS: FLUTICASONE PROPIONATE NA SPR 16 GM BTL SCH (20:39)
[2024-08-28 02:54] VITALS: O2SAT 94
[2024-08-28 07:14] VITALS: BP 143/87; RESP 20; TEMP 98.2
--- NOTE | 2024-08-28 08:35 | XRay Report ---
EXAM: XR KUB/Abdomen 1 view CLINICAL HISTORY: Follow-up exam. TECHNIQUE: X-ray of the abdomen was obtained in AP projection. COMPARISON: No prior studies are available for comparison. FINDINGS: Gas Pattern: Gas pattern within the abdomen is normal. No evidence of bowel obstruction or distention. Soft Tissues: Soft tissues of the abdomen appear normal without evidence of masses. Liver, spleen, and kidneys are of normal size and position. Multiple calcific plevic phleboli. Bilateral inguinal radio-opaque rounded densities, advised for clinical correlation. Lumbar scoliosis to the right. Advanced lumbar spondylosis seen as subchondral sclerosis, disc degeneration with reduced disc height and vacuum and osteophytes IMPRESSION: 1. No acute abnormalities were identified. 2. Calcific pelvic phleboli. 3. Bilateral inguinal radio-opaque rounded densities, advised for clinical correlation. 4. Lumbar scoliosis to the right. 5. Advanced lumbar spondylosis. Electronically signed by Alfredo Ventura 08-28-2024 08:35 AM
--- NOTE | 2024-08-28 09:53 | Discharge Summary ---
Discharge Summary Date of Service August 28, 2024 Principal Dx & Hospital Course #1 = Principal Diagnosis (1) Fall: (2) Vasovagal syndrome: (3) Irritable bowel syndrome with alternating bowel habits: (4) Labile essential hypertension: (5) Demand ischemia: (6) Orthostasis: (7) PAF (paroxysmal atrial fibrillation): (8) T2DM (type 2 diabetes mellitus): Plan Patient presents to the emergency room after a fall and hitting his head. Patient been having some fluctuations in his blood pressures. Also reports having multiple episodes of diarrhea over the last several months. Patient was admitted to a monitored unit. He did have some evidence of demand ischemia and elevated troponin. Cardiology consultation was obtained. He had extensive workup which included echocardiogram carotid studies and head CT. Imaging study did not show any acute pathology. Echocardiogram showed normal ejection fraction with normal left ventricular wall motion. GI consultation was also obtained for his complaints of diarrhea. He did have some loose stools here in the hospital. Tested negative for C. difficile. And more detailed history it seems as though the patient may have some alternating bowel habits where he may have multiple loose stools and for several days and then have some constipation not have a bowel movement for several days. This is consistent with possible irritable bowel. Also has a history was very consistent with vasovagal syncope or near syncope with falls after he gets up off the toilet from having explosive loose stool. His providers had been adjusting his blood pressure medications even prior to admission. His amlodipine had been recently discontinued. Here in the hospital he was continued on his metoprolol but his lisinopril initially was completely held. A lower dose of lisinopril was reinstituted after his blood pressures became more elevated. On the day of discharge he was sitting up eating his breakfast. His blood pressures were controlled. There is no significant orthostasis. He is up and ambulating in the room and to the bathroom without any lightheadedness or dizziness. He was seen by therapies. They had initially recommended some rehab at a facility, however the patient declined this. He also declined home health therapies. He felt that he had improved to the point where he could safely return home. He will be discharged home with conversation and trying to keep his bowels more consistent and bulky without constipation or diarrhea. He was successful a trial of Lomotil. Will also add some MiraLAX to provide bulk to his stools and soak up some of the exce ss liquid. His lisinopril dose significantly decreased. He will continue his metoprolol. He can follow-up with his outpatient providers and will be discharged home. Notes For Next Care Provider Patient may need additional titration of his blood pressure medications Patient may also need additional titration of medications to keep his stool bul ky and regular without being constipated or having diarrhea Medication Changes From Visit Lisinopril dose decreased MiraLAX and Lomotil added to medical regimen Admission HPI Per Admitting Provider This is a 74-year-old male who has significant past medical history of T2DM, PAF on eliquis, hx of TIA, HTN, HLD, dilated aortic root, aneurysm of aorta, CKD stage III, BPH, RLS, depression and history of prostate cancer s/p ERBT with hormone therapy in 2020 who presents to ED secondary to episode of lightheadedness and dizziness that resulted in him falling backwards and hitting his head. He was unable to get up after the incident. His who was also a patient in the neighboring bed was at bedside and elicited history as well as external chart review. He reports that he has been having intermittent episodes of diarrhea over the last 3 to 4 months. When he has to move his bowels there is a significant sense of urgency to the point he usually loses control. He states he had an episode this morning and he was on his hands and knees trying to clean it up. When he went to sit up he felt off balance and fell backwards hitting his head on the sink. He recalls all events and did not lose consciousness. He tried to get to his hands and knees and stand up, but he was unable. His tried to assist in getting up and in doing so hurt her back. They had to summon EMS for assistance. Patient reports that he has been having intermittent episodes of these lightheadedness/dizziness episodes that have been becoming more frequent. He said initially they would just happen every once in a while and now they are occurring daily. He reports feeling off balance requiring him to hold onto things to not lose balance. He denies feeling presyncopal like he is going to pass out. He also reports an episode of chest pain approximately 1 week ago that was left-sided. He states it lasted seconds and denied any radiation of symptoms. He further denied any associated nausea, vomiting, diaphoresis, syncope or shortness of breath. He does admit to increas ingly shortness of breath with exertion. He does report he had COVID approximately 1 month ago. He reports having COVID 3 times. feels he is suffering from long COVID. He denies any recent fever, chills, sweats, cough, hemoptysis, nausea, vomiting, abdominal pain. reports he recently had a colonoscopy secondary to the diarrhea which was unrevealing. Also of note in the later aspect of 2023 patient was diagnosed with atrial fibrillation. He was treated with metoprolol and Eliquis. He has been compliant with these medications. He was to undergo cardioversion, but he spontaneously converted to NSR. Last confined May 2024 2/2 dental infection and sepsis. Last echo 06/14/24: LVEF 70%, hyperdynamic, left atrium mildly enlarged, grade I diastolic dysfunction, mild aortic sclerosis present, aortic root 4.6cm and prox ascending thoracic aorta 4.6cm. Admission Exam Per Admitting Provider See H&P Discharge Exam Constitutional: Alert HEENT: Mucous membranes moist. Lungs: Clear to auscultation, decreased, no wheezes rales or rhonchi CV: S1-S2, regular Abdomen: Soft, nontender, nondistended Extremities: No significant edema Neuro: No focal deficits Psych: Cooperative, normal mood Updated Medication List Medication Instructions Recorded Confirmed Type loratadine 10 mg tablet (Claritin) 10 mg PO DAILY PRN Allergy Symptoms 09/23/21 08/26/24 History melatonin 10 mg tablet 10 mg PO HS 09/23/21 08/26/24 History multivitamin 1 tab PO QAM 09/23/21 08/26/24 History azelastine 137 mcg (0.1 %) nasal 1 spray intranasal AMHS 05/23/24 08/26/24 History spray escitalopram oxalate 10 mg tablet 10 mg PO QAM 05/23/24 08/26/24 History (Lexapro) lisinopril 40 mg tablet 40 mg PO QAM 05/23/24 08/26/24 History omeprazole 40 mg capsule,delayed 40 mg PO QAM 05/23/24 08/26/24 History release rosuvastatin 10 mg tablet (Crestor) 10 mg PO DAILY 05/23/24 08/26/24 History metoprolol succinate 100 mg 100 mg PO QAM 08/05/24 08/26/24 History tablet,extended release 24 hr albuterol sulfate 90 mcg/actuation 2 puff inhalation Q4H PRN wheezing 08/26/24 08/26/24 History aerosol inhaler or dyspnea apixaban 5 mg tablet (Eliquis) 5 mg PO BID 08/26/24 08/26/24 History metoprolol succinate 50 mg 50 mg PO HS 08/26/24 08/26/24 History tablet,extended release 24 hr diphenoxylate-atropine 2.5 1 tab PO DAILY 30 days #30 tabs 08/28/24 Rx mg-0.025 mg tablet lisinopril 10 mg tablet 10 mg PO QAM 30 days #30 tabs 08/28/24 Rx polyethylene glycol 3350 17 gram 17 g PO DAILY 30 days #30 ea 08/28/24 Rx oral powder packet (Miralax) Hospital Stay Data Consultations 08/26/24 10:44 ED Decision to Admit Stat 08/26/24 11:32 Consult Cardiology Routine Consult Gastroenterology Routine Diagnostic Imagining Performed 08/26/24 07:38 CT cervical spine wo con Stat CT head/brain wo con Stat 08/26/24 10:42 CTA chest dissec wo/w con [CT angio chest dissec wo/w con] Stat 08/26/24 11:32 Carotid duplex [US carotid doppler BI] Routine 08/26/24 20:18 CT head/brain wo con Urgent Reviewed imaging, laboratory and diagnostic studies. Pertinent findings as below. Echocardiogram shows ejection fraction 65 to 70% normal left ventricular motion Some grade 2 diastolic dysfunction, trace mitral regurg. I refer you to the full report for details KUB showed no evidence of obstruction Head CT no acute pathology stool negative for C. difficile CBC and BMP stable Hemoglobin A1c 6.5% stool BioFire negative Pending Results Patient Have Any Pending Studies at Discharge: No Discharge Instructions Given to Patient (Per Discharging Provider) Stay well-hydrated Goal was to have a bulky stool with 1 to 2 bowel movements daily Continue to work with your PCP and event decorator and designer for monitoring and management of your blood pressure Slow careful movements when changing position especially after having bowel movement Total Time Total Time Spent Total Time Spent (In Minutes): 35
[2024-08-28] MEDS ORDERED: SODIUM CHLORIDE 0.65% NA SOLN 45 ML (OCEAN) PRN (09:57)
--- NOTE | 2024-08-28 10:39 | Gastroenterology Progress Note ---
Date of Service August 28, 2024 Assessment & Plan (1) Fall: Plan: 74 year old male w/ history of T2DM, PAF on eliquis, hx of TIA, HTN, HLD, dilated aortic root, aneurysm of aorta, CKD stage III, BPH, RLS, depression and history of prostate cancer s/p ERBT with hormone therapy in 2020 admitted through the ED following a fall - GI asked to evaluate for diarrhea which has been ongoing for months. Recent EGD/Colonoscopy arrange through [facility] for symptoms w/ negative biopsies. He notes his bowels have ultimately improved and tells me he is being discharged this AM. He was encouraged to make a follow up appt wDana GARICA as overflow diarrhea is suspected. Outpatient CTAP encouraged to rule out any contributing pathology. Continue PRN Imodium. I spent a total of 40 minutes on the date of service in review of patient's record, and previously obtained information in person and appropriate medical visit, discussion and education of plan, with patient and/or caregiver, placing orders for tests/referral/procedures as medically necessary and documentation of pertinent clinical information in patient's medical records for their visit today. (2) Diarrhea: Admission and Anticipated Discharge Date Admission Date: August 27, 2024 Subjective Feeling improved. Stool PCR and C.diff negative. Tells me he is being discharged this AM. Denies abd pain, nausea/vomiting. No BM w/ enema therapy. KUB w/ small stool burden. Review of Systems Review of Systems: All other findings negative except as noted in HPI. Physical Exam Constitutional: WD/WN, vitals as above Respiratory: normal respiratory effort, lungs clear to auscultation Cardiovascular: Rate/Rhythm: regular rate and regular rhythm Gastrointestinal (Abdomen): normal bowel sounds, soft, nontender, no hepatosplenomegaly Skin: no rashes, warm and dry Results & Data Results & Data Vital Signs (Past 12 Hours) Vital Signs Temp Pulse Pulse Resp BP Pulse Ox O2 Del Method 08/28/24 09:37 73 08/28/24 09:19 Room Air 08/28/24 07:13 98.2 F 61 20 143/87 H 94 Room Air 08/28/24 02:53 98.1 F 67 18 142/78 H 94 Room Air 08/27/24 22:45 98.1 F 66 18 152/97 H 93 Room Air Laboratory Results 08/28/24 08/27/24 08/27/24 Range/Units 07:42 Unknown 20:11 POC Glucose 99 107 H (70-99) mg/dl Stl C. diff Tox B Gene Negative Cdiff Gene (Neg) 08/27/24 08/27/24 Range/Units 16:50 11:28 POC Glucose 103 H 142 H (70-99) mg/dl Stl C. diff Tox B Gene (Neg) PG Care Time/CCT Total # of Minutes Spent Total Time Spent with Patient: Total time spent is greater than 50% in coordination of care (as documented) at patient's floor/unit and/or counseling patient: Coding Level of Care Code 47889 SUB INP/OBS CARE 2/35MIN Diagnoses Fall W19.XXXA Diarrhea R19.7
[2024-08-28 11:25] VITALS: PULSE 61
== END 2024-08-28 13:30 | disposition home or self-care (01) | DRG 392 ==
LOC: ED 07:22 → EDINP 07:22 → SUATTDRO 11:32 → EDINP 14:19 → 4W 15:06

== ENCOUNTER 2025-05-31 16:18 | Observation (INO) ==
--- NOTE | 2025-05-31 16:40 | Emergency Department Note ---
Impression & Plan TIA (transient ischemic attack) ED Provider Note NAME: MARTHA TRAN AGE: 75 SEX: M : 1950 ARRIVES VIA: Walk-In INFORMANT: Patient, the patient's ED PROVIDER(S): Uziel Lamb DO CHIEF COMPLAINT: Strokelike symptoms HPI: The patient is a 75-year-old male who presented to the emergency department for strokelike symptoms. The patient arrived via triage with his significant other. The patient was made a stroke alert in triage. He was brought directly back after CAT scan to room B10. I did evaluate the patient in the Scanner. The patient states approximately 3:30 PM he started having symptoms where he was confused. He was having difficulty speaking. He was trying to work on puzzles initially crossword puzzles and then [place] and he was having trouble seeing the letters and feeling in the numbers. He has significant other was made aware of this. He has a history of a TIA 4 years ago. They came directly to the emergency department. He denies having any chest pain or difficulty breathing. He does complain of a slight left-sided headache. ROS: See above HPI for pertinent positives & negatives. A total of 10 systems reviewed and were otherwise negative. PAST MEDICAL HISTORY: See Below PAST SURGICAL HISTORY: See Below FAMILY HISTORY: See Below SOCIAL HISTORY: See Below HOME MEDICATIONS: See Below ALLERGIES: See Below VITALS: See Below PHYSICAL EXAMINATION: GENERAL: Patient is awake alert in no acute distress patient is resting comfortably and showing no signs of anxiety EYES: The conjunctivae are clear. The pupils are round and reactive. EARS, NOSE, MOUTH AND THROAT: The nose is without any evidence of any deformity. NECK: The neck is nontender and supple. RESPIRATORY: Normal respiratory effort is noted there is no evidence of wheezing rhonchi or rales CARDIOVASCULAR: Regular rate and rhythm noted there no murmurs rubs or gallops normal S1 normal S2. GASTROINTESTINAL: The abdomen is soft. Abdomen is nontender. MUSCULOSKELETAL/EXTREMITIES: There is no evidence of gross deformity full range of motion is noted in the hips and shoulders. SKIN: There is no obvious evidence of any rash. There are no petechiae, pallor or cyanosis noted. NEUROLOGIC: Patient is awake alert and oriented x3. Strength is symmetric. Speech was clear. The patient is able to hold each leg off the bed for greater than 5 seconds. There was no significant facial droop noted. MEDICAL DECISION MAKING: The patient is a 75-year-old male who presented to the emergency department for strokelike symptoms. He was made a stroke alert in triage. I did evaluate the patient and CAT scan. The patient's symptoms were very mild and seem to be resolving quickly. It sounds though most of his complaints were cognitive in nature. He may have had a slight facial droop noted by nursing in triage. I did discuss patient's condition with the telestroke neurologist from [facility]. The patient was reevaluated multiple times. Ultimately the patient was not found to have any worsening symptoms. CT and CT angiography did not show any acute process. The patient was not a candidate for TNK because of his rapidly improving symptoms as well as the fact that he takes an oral anticoagulant. I [facility] the [facility] He may require further workup as an inpatient for management and disposition. The patient was agreeable to plan. A dose of labetalol was ordered but the patient's blood pressure seemed to improve with just observation. Triage Nursing notes reviewed. Prior medical records reviewed Vital Signs: reviewed and remarkable for elevated blood pressure. Differential diagnosis: Infection, dehydration, metabolic abnormality, hypo/hyperglycemia, electrolyte disturbance, anemia, hypoxia, cardiac sources, intracerebral event, toxicologic, neurologic, as well as other pathologies. ER treatment provided: See below Diagnostics interpreted by me: ECG: EKG was obtained in the emergency department. My interpretation is normal sinus rhythm at 65 bpm. There is no ectopy. There is no acute ST segment abnormalities noted. LVH was suggested by voltage criteria. This was compared to a tracing from October 01, 2024. No changes were noted. Cardiac Monitoring: An order was placed for continuous cardiac monitoring. The monitor shows a rate of 64 bpm with sinus rhythm. Laboratory studies: As stated above and show below. Imaging studies: See below. Radiographic imaging was reviewed by myself Consultation(s): I discussed this case with Dr. Crews who is on-call for the [facility] neurology group. I discussed this case with Dr. Kim who is [facility]. Past Med/Surg History Problem List (Updated 05/31/25 @ 17:31 by Uziel Lamb DO) TIA (transient ischemic attack) (Acute) Irritable bowel syndrome with alternating bowel habits Vasovagal syndrome Labile essential hypertension Demand ischemia Chronic diarrhea of unknown origin Orthostasis Diarrhea PAF (paroxysmal atrial fibrillation) Fall Elevated troponin Chest pain (Acute) Fall from standing (Acute) Non-ST elevation CA (NSTEMI) (Acute) Dizziness (Acute) GERD (gastroesophageal reflux disease) (Acute) Essential hypertension Medical History T2DM (type 2 diabetes mellitus) Enlarged thoracic aorta Echo 06/2024: Proximal ascending thoracic aorta is moderately enlarged, 4.6 cm Dilated aortic root Echo 06/2024: Moderately enlarged aortic root, 4.6 cm Environmental allergies Hx of transient ischemic attack (TIA) Several years ago (~), no issues since Atrial fibrillation Follows with [facility] Cardio Pneumomediastinum Hx 05/2024, [facility] admission Hx of sepsis 05/2024- after dental procedures > [facility] admission GERD (gastroesophageal reflux disease) Hypertension BPH (benign prostatic hyperplasia) Depression Restless leg syndrome Per records, patient unsure Prostate CA 2019 - XRT Surgical History Hx of colonoscopy History of penile implant Per records History of dental surgery Hx of tonsillectomy History of hernia surgery x2 History of total left knee replacement H/O vasectomy Family History Father , age 62 Heart disease Mother , ~70 y/o Heart disease Stroke Social History Smoking Status: Never smoker Second Hand Exposure: No; Do You Dip or Chew Tobacco: No; Hx Alcohol Use: Yes Alcohol type: beer Hx Substance Use: No Preferred Language: [place] Communication Ability: Effective 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 And 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 Straightener Required: No Beliefs That Will Affect Care: None Current Living Situation: Spouse Current Living Situation Comment: lives with fiance Feels Safe at Home: Yes Assistive Devices: Cane and Walker Allergies Allergies Allergy/AdvReac Type Severity Reaction Status Date / Time animal dander Allergy Intermediate Itchy/Watery Verified 10/01/24 11:30 eyes, Congestion grass pollen Allergy Intermediate Itchy/Watery Verified 10/01/24 11:30 eyes, Congestion mold Allergy Intermediate Congestion Verified 10/01/24 11:30 warfarin [From Coumadin] Allergy Unknown Unknown Verified 10/01/24 11:30 Home Meds Home Medications Medication Instructions Recorded Confirmed multivitamin 1 tab PO QAM 09/23/21 05/31/25 escitalopram oxalate 10 mg tablet 10 mg PO QAM 05/23/24 05/31/25 (Lexapro) albuterol sulfate 90 mcg/actuation 2 puff inhalation Q4H PRN wheezing 08/26/24 05/31/25 aerosol inhaler or dyspnea apixaban 5 mg tablet (Eliquis) 5 mg PO BID 08/26/24 05/31/25 metoprolol succinate 50 mg 50 mg PO BID 08/26/24 05/31/25 tablet,extended release 24 hr iron,carbonyl 65 mg-vitamin C 125 1 tab PO DAILY 10/01/24 05/31/25 mg tablet,delayed release (Vitron-C) lisinopril 10 mg tablet 0 mg PO UD 10/01/24 05/31/25 lisinopril 20 mg tablet 20 mg PO UD 10/01/24 05/31/25 montelukast 10 mg tablet 10 mg PO QPM 10/01/24 05/31/25 diphenoxylate-atropine 2.5 1 tab PO UD PRN Other 05/31/25 05/31/25 mg-0.025 mg tablet (Lomotil) trospium 20 mg tablet 20 mg PO DAILY 05/31/25 05/31/25 Results & Data (ED) Vital Signs Vital Signs - 24 hr 05/31/25 16:20 05/31/25 16:38 05/31/25 16:40 Temperature 36.6 C Temperature Source Temporal Artery Scan Pulse Rate 75 Pulse Rate [Apical] 71 66 Pulse Rhythm [Apical] Regular Regular Pulse Strength [Apical] Normal Normal Respiratory Rate 18 16 Respiratory Effort / Characteristics Non-Labored Spontaneous Non-Labored Spontaneous Non-Labored Spontaneous Respiratory Depth Normal Normal Normal Respiratory Pattern Regular Regular Regular Blood Pressure 176/117 H Blood Pressure [Left Arm] 183/114 H Blood Pressure [Right Arm] 177/115 H Blood Pressure Mean 136 Blood Pressure Mean [Left Arm] 137 Blood Pressure Mean [Right Arm] 135 Blood Pressure Position [Left Arm] Semi-fowlers Blood Pressure Position [Right Arm] Semi-fowlers Pulse Oximetry 93 94 94 Oxygen Delivery Method Room Air Room Air Room Air Sepsis Recent Fever Within 48 Hours No Sepsis New/Unexplained Change in Mental Status N/A Sepsis Action Taken by Nursing No Action Required 05/31/25 16:42 05/31/25 16:48 05/31/25 16:58 Temperature Temperature Source Pulse Rate 114 H Pulse Rate [Apical] 66 Pulse Rhythm [Apical] Regular Pulse Strength [Apical] Normal Respiratory Rate 21 Respiratory Effort / Characteristics Non-Labored Spontaneous Respiratory Depth Normal Respiratory Pattern Regular Blood Pressure Blood Pressure [Left Arm] Blood Pressure [Right Arm] 160/110 H 157/102 H Blood Pressure Mean Blood Pressure Mean [Left Arm] Blood Pressure Mean [Right Arm] 126 120 Blood Pressure Position [Left Arm] Blood Pressure Position [Right Arm] Semi-fowlers Semi-fowlers Pulse Oximetry 95 Oxygen Delivery Method Room Air Sepsis Recent Fever Within 48 Hours Sepsis New/Unexplained Change in Mental Status Sepsis Action Taken by Nursing 05/31/25 16:59 05/31/25 17:07 05/31/25 17:07 Temperature Temperature Source Pulse Rate 71 Pulse Rate [Apical] 64 64 Pulse Rhythm [Apical] Regular Regular Pulse Strength [Apical] Normal Normal Respiratory Rate 22 22 Respiratory Effort / Characteristics Non-Labored Spontaneous Non-Labored Spontaneous Respiratory Depth Normal Normal Respiratory Pattern Regular Regular Blood Pressure Blood Pressure [Left Arm] Blood Pressure [Right Arm] 173/112 H 173/112 H Blood Pressure Mean Blood Pressure Mean [Left Arm] Blood Pressure Mean [Right Arm] 132 132 Blood Pressure Position [Left Arm] Blood Pressure Position [Right Arm] Semi-fowlers Semi-fowlers Pulse Oximetry 96 96 Oxygen Delivery Method Room Air Room Air Sepsis Recent Fever Within 48 Hours Sepsis New/Unexplained Change in Mental Status Sepsis Action Taken by Half-Way Medications Current Medication List: was personally reviewed by me Laboratory Data Attestation: I reviewed the patient's lab results. 05/31/25 16:43 05/31/25 16:43 Lab Results 05/31/25 Range/Units 16:43 WBC 8.02 (4.8-10.8) K/ul RBC 4.67 L (4.70-6.10) M/uL Hgb 14.5 (14.0-18.0) g/dl Hct 42.9 (42.0-52.0) % MCV 91.9 (80.0-100.0) fL MCH 31.0 (25.0-34.0) pg MCHC 33.8 (32.0-36.0) g/dL RDW Std Deviation 43.7 (36.4-46.3) fL RDW Coeff of Carine 13.0 (11.5-14.5) % Plt Count 239 (130-400) K/uL MPV 10.3 (9.4-12.4) fL Immature Gran % (Auto) 0.2 % Neut % (Auto) 63.9 % Lymph % (Auto) 21.6 % [place] % (Auto) 10.5 % Eos % (Auto) 3.4 % Baso % (Auto) 0.4 % Neut # (Auto) 5.13 (1.40-6.50) K/uL Lymph # (Auto) 1.73 (1.20-3.40) K/uL [place] # (Auto) 0.84 H (0.11-0.59) K/uL Eos # (Auto) 0.27 (0.00-0.50) K/uL Baso # (Auto) 0.03 (0.00-0.20) K/uL Immature Gran # (Auto) 0.02 (0.01-0.20) K/uL PT 11.8 (9.0-12.0) Seconds INR 1.1 (0.9-1.1) APTT 29 (21-31) Seconds PTT Ratio 1.1 Sodium 132 L (136-145) mmol/L Potassium 4.2 (3.5-5.1) mmol/L Chloride 100 (98-107) mmol/L Carbon Dioxide 28 (21-32) mmol/L Anion Gap 4 (3-11) BUN 20 (6-23) mg/dl Creatinine 1.16 (0.6-1.4) mg/dl Est Cr Clr Drug Dosing 64.3 ml/min eGFR 64.87 BUN/Creatinine Ratio 17.2 (10-20) Glucose 114 H (70-99(Fasting)) mg/dl Calcium 9.1 (8.6-10.3) mg/dl Magnesium 2.2 (1.7-2.4) mg/dl Total Bilirubin 1.4 H (0.2-1.0) mg/dl AST 18 (13-39) U/L ALT 17 (7-52) U/L Alkaline Phosphatase 42 (34-104) U/L Troponin I High Sens 14.3 (0-20) pg/ml Total Protein 6.4 (6.0-8.3) gm/dl Albumin 3.7 (3.4-5.0) gm/dl Globulin 2.7 (2.5-4.0) gm/dl Albumin/Globulin Ratio 1.4 (0.9-2) Imaging Data Attestation: I personally reviewed and interpreted this imaging study as follows: My Impression: CT of the brain was obtained in the emergency department. My interpretation is no intracranial hemorrhage or mass effect, final report below. Radiologist's Impression: Head CT 05/31/25 16:23 EXAM: CT Head Without Intravenous Contrast INDICATION: Neurologic deficit TECHNIQUE: Axial computed tomography images of the head/brain without intravenous contrast. Sagittal and/or coronal reformats are provided. Sagittal and coronal reformatted images were created and reviewed. This CT exam was performed using one or more of the following dose reduction techniques: automated exposure control, adjustment of the mA and/or kV according to patient size, and/or use of iterative reconstruction technique. COMPARISON: 10/01/2024 FINDINGS: Limitations: None. Brain and extra-axial spaces: There is age appropriate cortical atrophy and chronic ischemic periventricular white matter hypodensity. No acute infarct, hemorrhage or mass noted. Bones/joints: No acute changes. Soft tissues: No significant abnormality noted. Vasculature: No acute abnormality noted. Sinuses: No layering fluid in the visualized portions of the paranasal sinuses. Mastoid air cells: No mastoid effusion. Orbits: No significant abnormality noted. IMPRESSION: Cerebral atrophy. No acute changes. ACT 112: N/A Electronically signed by Naila Burgos 05-31-2025 4:51 PM Head CTA 05/31/25 16:23 EXAM: CT Angiography Head and Neck With Intravenous Contrast INDICATION: Neurologic deficit TECHNIQUE: [place]/head and neck CT angiography protocol performed with intravenous contrast. Sagittal and coronal reformatted images were created and reviewed. This CT exam was performed using one or more of the following dose reduction techniques: automated exposure control, adjustment of the mA and/or kV according to patient size, and/or use of iterative reconstruction technique. MIP reconstructed images were created and reviewed. CONTRAST: 119 ml of Optiray 320 was administered intravenously. COMPARISON: None. FINDINGS: HEAD: Right anterior cerebral artery: No abnormality noted. No occlusion or significant stenosis. Anterior communicating artery is present. No aneurysm. Right middle cerebral artery: No abnormality noted. No occlusion or significant stenosis. No aneurysm. Right posterior cerebral artery: No abnormality noted. No occlusion or significant stenosis. No aneurysm. Right intracranial internal carotid artery: Atherosclerotic calcification noted. No significant stenosis. No dissection or occlusion. Right intracranial vertebral artery: No abnormality noted. No significant stenosis. No dissection or occlusion. Left anterior cerebral artery: No abnormality noted. No occlusion or significant stenosis. No aneurysm. Left middle cerebral artery: No abnormality noted. No occlusion or significant stenosis. No aneurysm. Left posterior cerebral artery: No abnormality noted. No occlusion or significant stenosis. No aneurysm. Left intracranial internal carotid artery: Atherosclerotic calcification noted. No significant stenosis. No dissection or occlusion. Left intracranial vertebral artery: No abnormality noted. No significant stenosis. No dissection or occlusion. Basilar artery: No abnormality noted. No occlusion or significant stenosis. No aneurysm. Other vasculature: No vascular malformation. NECK: Right common carotid artery: No abnormality noted. No significant stenosis. No dissection or occlusion. Right extracranial internal carotid artery: Calcific plaque at the bulb. No significant stenosis. No dissection or occlusion. Right external carotid artery: No abnormality noted. No occlusion. Right extracranial vertebral artery: No abnormality noted. No significant stenosis. No dissection or occlusion. Left common carotid artery: No abnormality noted. No significant stenosis. No dissection or occlusion. Left extracranial internal carotid artery: Calcific plaque at the bulb. No significant stenosis. No dissection or occlusion. Left external carotid artery: No abnormality noted. No occlusion. Left extracranial vertebral artery: No abnormality noted. No significant stenosis. No dissection or occlusion. Lung apices: No significant abnormality noted. HEAD and NECK: Bones/joints: No significant abnormality. Soft tissues: No abnormality noted. CAROTID STENOSIS REFERENCE USING NASCET CRITERIA: % ICA stenosis = (1 - narrowest ICA diameter/diameter of distal cervical ICA) x 100. Mild - <50% stenosis. Moderate - 50-69% stenosis. Severe - 70-94% stenosis. Near occlusion - 95-99% stenosis. Occluded - 100% stenosis. IMPRESSION: Negative CTA carotid and CTA brain. ACT 112: N/A Electronically signed by Naila Burgos 05-31-2025 4:54 PM Neck CTA 05/31/25 16:23 EXAM: CT Angiography Head and Neck With Intravenous Contrast INDICATION: Neurologic deficit TECHNIQUE: [place]/head and neck CT angiography protocol performed with intravenous contrast. Sagittal and coronal reformatted images were created and reviewed. This CT exam was performed using one or more of the following dose reduction techniques: automated exposure control, adjustment of the mA and/or kV according to patient size, and/or use of iterative reconstruction technique. MIP reconstructed images were created and reviewed. CONTRAST: 119 ml of Optiray 320 was administered intravenously. COMPARISON: None. FINDINGS: HEAD: Right anterior cerebral artery: No abnormality noted. No occlusion or significant stenosis. Anterior communicating artery is present. No aneurysm. Right middle cerebral artery: No abnormality noted. No occlusion or significant stenosis. No aneurysm. Right posterior cerebral artery: No abnormality noted. No occlusion or significant stenosis. No aneurysm. Right intracranial internal carotid artery: Atherosclerotic calcification noted. No significant stenosis. No dissection or occlusion. Right intracranial vertebral artery: No abnormality noted. No significant stenosis. No dissection or occlusion. Left anterior cerebral artery: No abnormality noted. No occlusion or significant stenosis. No aneurysm. Left middle cerebral artery: No abnormality noted. No occlusion or significant stenosis. No aneurysm. Left posterior cerebral artery: No abnormality noted. No occlusion or significant stenosis. No aneurysm. Left intracranial internal carotid artery: Atherosclerotic calcification noted. No significant stenosis. No dissection or occlusion. Left intracranial vertebral artery: No abnormality noted. No significant stenosis. No dissection or occlusion. Basilar artery: No abnormality noted. No occlusion or significant stenosis. No aneurysm. Other vasculature: No vascular malformation. NECK: Right common carotid artery: No abnormality noted. No significant stenosis. No dissection or occlusion. Right extracranial internal carotid artery: Calcific plaque at the bulb. No significant stenosis. No dissection or occlusion. Right external carotid artery: No abnormality noted. No occlusion. Right extracranial vertebral artery: No abnormality noted. No significant stenosis. No dissection or occlusion. Left common carotid artery: No abnormality noted. No significant stenosis. No dissection or occlusion. Left extracranial internal carotid artery: Calcific plaque at the bulb. No significant stenosis. No dissection or occlusion. Left external carotid artery: No abnormality noted. No occlusion. Left extracranial vertebral artery: No abnormality noted. No significant stenosis. No dissection or occlusion. Lung apices: No significant abnormality noted. HEAD and NECK: Bones/joints: No significant abnormality. Soft tissues: No abnormality noted. CAROTID STENOSIS REFERENCE USING NASCET CRITERIA: % ICA stenosis = (1 - narrowest ICA diameter/diameter of distal cervical ICA) x 100. Mild - <50% stenosis. Moderate - 50-69% stenosis. Severe - 70-94% stenosis. Near occlusion - 95-99% stenosis. Occluded - 100% stenosis. IMPRESSION: Negative CTA carotid and CTA brain. ACT 112: N/A Electronically signed by Naila Burgos 05-31-2025 4:54 PM Discharge Plan Visit Data Chief Complaint: Stroke Alert Stated Complaint: POSS STROKE OR TIA ~1 HR AGO, HX TIA ED Provider: Uziel Lamb Discharge Problem: TIA (transient ischemic attack) Patient Disposition: Being Evaluated by Hospitalist Condition: Fair Forms Stand Alone Forms: [employer] Prescriptions Prescriptions: No Action multivitamin Tablet 1 tab PO QAM Patient Comments: 05/31- otc unable to verify lisinopril 20 mg tablet 20 mg PO UD Patient Comments: 05/31-20 mg dose last filled 04/03 90 day supply #90; Lisinopril 10 mg: filled 08/28 29 day supply #30; Lisinopril 30 mg filled 02/14 90 day supply #90. Rx Instructions: Take 20mg w/ 10mg to equal 30 mg by mouth once in the morning. lisinopril 10 mg tablet 0 mg PO UD Patient Comments: 05/31- last filled 08/28 30 day supply #30;30 mg filled 02/14 90 day supply #90. Original: Take 10mg w/ 20mg to equal 30 mg by mouth once in the morning. montelukast 10 mg tablet 10 mg PO QPM Vitron-C 65 mg iron- 125 mg Tablet,Delayed Release (Dr/Ec) 1 tab PO DAILY Patient Comments: 05/31- otc unable to verify diphenoxylate-atropine [Lomotil] 2.5-0.025 mg tablet 1 tab PO UD PRN (Reason: Other) trospium 20 mg tablet 20 mg PO DAILY escitalopram oxalate [Lexapro] 10 mg tablet 10 mg PO QAM metoprolol succinate 50 mg tablet extended release 24 hr 50 mg PO BID albuterol sulfate 90 mcg/actuation HFA aerosol inhaler 2 puff INHALATION Q4H PRN (Reason: wheezing or dyspnea) Patient Comments: 05/31- last filled 08/05 Eliquis 5 mg tablet 5 mg PO BID Referrals Referrals: Osito Alfaro MD [Outside Practitioners] -
--- NOTE | 2025-05-31 16:51 | CT Scan Report ---
EXAM: CT Head Without Intravenous Contrast INDICATION: Neurologic deficit TECHNIQUE: Axial computed tomography images of the head/brain without intravenous contrast. Sagittal and/or coronal reformats are provided. Sagittal and coronal reformatted images were created and reviewed. This CT exam was performed using one or more of the following dose reduction techniques: automated exposure control, adjustment of the mA and/or kV according to patient size, and/or use of iterative reconstruction technique. COMPARISON: 10/01/2024 FINDINGS: Limitations: None. Brain and extra-axial spaces: There is age appropriate cortical atrophy and chronic ischemic periventricular white matter hypodensity. No acute infarct, hemorrhage or mass noted. Bones/joints: No acute changes. Soft tissues: No significant abnormality noted. Vasculature: No acute abnormality noted. Sinuses: No layering fluid in the visualized portions of the paranasal sinuses. Mastoid air cells: No mastoid effusion. Orbits: No significant abnormality noted. IMPRESSION: Cerebral atrophy. No acute changes. ACT 112: N/A Electronically signed by Naila Burgos 05-31-2025 4:51 PM
--- NOTE | 2025-05-31 16:55 | CT Scan Report ---
EXAM: CT Angiography Head and Neck With Intravenous Contrast INDICATION: Neurologic deficit TECHNIQUE: [place] [facility] [place]/head and neck CT angiography protocol performed with intravenous contrast. Sagittal and coronal reformatted images were created and reviewed. This CT exam was performed using one or more of the following dose reduction techniques: automated exposure control, adjustment of the mA and/or kV according to patient size, and/or use of iterative reconstruction technique. MIP reconstructed images were created and reviewed. CONTRAST: 119 ml of Optiray 320 was administered intravenously. COMPARISON: None. FINDINGS: HEAD: Right anterior cerebral artery: No abnormality noted. No occlusion or significant stenosis. Anterior communicating artery is present. No aneurysm. Right middle cerebral artery: No abnormality noted. No occlusion or significant stenosis. No aneurysm. Right posterior cerebral artery: No abnormality noted. No occlusion or significant stenosis. No aneurysm. Right intracranial internal carotid artery: Atherosclerotic calcification noted. No significant stenosis. No dissection or occlusion. Right intracranial vertebral artery: No abnormality noted. No significant stenosis. No dissection or occlusion. Left anterior cerebral artery: No abnormality noted. No occlusion or significant stenosis. No aneurysm. Left middle cerebral artery: No abnormality noted. No occlusion or significant stenosis. No aneurysm. Left posterior cerebral artery: No abnormality noted. No occlusion or significant stenosis. No aneurysm. Left intracranial internal carotid artery: Atherosclerotic calcification noted. No significant stenosis. No dissection or occlusion. Left intracranial vertebral artery: No abnormality noted. No significant stenosis. No dissection or occlusion. Basilar artery: No abnormality noted. No occlusion or significant stenosis. No aneurysm. Other vasculature: No vascular malformation. NECK: Right common carotid artery: No abnormality noted. No significant stenosis. No dissection or occlusion. Right extracranial internal carotid artery: Calcific plaque at the bulb. No significant stenosis. No dissection or occlusion. Right external carotid artery: No abnormality noted. No occlusion. Right extracranial vertebral artery: No abnormality noted. No significant stenosis. No dissection or occlusion. Left common carotid artery: No abnormality noted. No significant stenosis. No dissection or occlusion. Left extracranial internal carotid artery: Calcific plaque at the bulb. No significant stenosis. No dissection or occlusion. Left external carotid artery: No abnormality noted. No occlusion. Left extracranial vertebral artery: No abnormality noted. No significant stenosis. No dissection or occlusion. Lung apices: No significant abnormality noted. HEAD and NECK: Bones/joints: No significant abnormality. Soft tissues: No abnormality noted. CAROTID STENOSIS REFERENCE USING NASCET CRITERIA: % ICA stenosis = (1 - narrowest ICA diameter/diameter of distal cervical ICA) x 100. Mild - <50% stenosis. Moderate - 50-69% stenosis. Severe - 70-94% stenosis. Near occlusion - 95-99% stenosis. Occluded - 100% stenosis. IMPRESSION: Negative CTA carotid and CTA brain. ACT 112: N/A Electronically signed by Naila Burgos 05-31-2025 4:54 PM
[2025-05-31 16:56] LABS: Hematocrit (blood only) 42.9 % (42.0-52.0); Hemoglobin 14.5 g/dl (14.0-18.0); Immature Granulocytes # (auto) 0.02 K/uL (0.01-0.20); Immature Granulocytes % (auto) 0.2 %; Mean Corpuscular Hemoglobin 31.0 pg (25.0-34.0); Mean Corpuscular Volume 91.9 fL (80.0-100.0); Platelet Count 239 K/uL (130-400); RDW Standard Deviation 43.7 fL (36.4-46.3); Red Blood Count 4.67 M/uL (4.70-6.10); White Blood Count 8.02 K/ul (4.8-10.8)
[2025-05-31 17:15] LABS: Alanine Aminotransferase 17.0 U/L (7-52); Albumin Globulin Ratio 1.4 (0.9-2); Albumin Level 3.7 gm/dl (3.4-5.0); Alkaline Phosphatase 42.0 U/L (34-104); Anion Gap 4.0 (3-11); Bilirubin,Total 1.4 mg/dl (0.2-1.0); Blood Urea Nitrogen 20.0 mg/dl (6-23); Calcium 9.1 mg/dl (8.6-10.3); Carbon Dioxide 28.0 mmol/L (21-32); Chloride 100.0 mmol/L (98-107); Creatinine Clr Calc Pharmacy 64.3 ml/min; Globulin 2.7 gm/dl (2.5-4.0); Glucose 114.0 mg/dl (70-99(Fasting)); Magnesium 2.2 mg/dl (1.7-2.4); Potassium 4.2 mmol/L (3.5-5.1); Sodium 132.0 mmol/L (136-145); Total Protein 6.4 gm/dl (6.0-8.3)
[2025-05-31 17:32] LABS: INR 1.1 (0.9-1.1); Partial Thromboplastin Time 29 Seconds (21-31); Prothrombin Time 11.8 Seconds (9.0-12.0)
--- NOTE | 2025-05-31 17:45 | History & Physical Report ---
Date of Service May 31, 2025 Assessment & Plan (1) Stroke-like symptom: Plan: Pt is a 75 yo M w/ hx of paroxysmal Afib on Eliquis, HTN, HLD, dilated aortic root, DM type 2 , CKD stage 3a, RLS, hx of prostate ca, hx of TIA who presents w/ stroke- like symptoms. Pt was doing crossword puzzles in the afternoon when he realized they were not making sense His speech was also garbled and he could not spell which he is usually good at By the time he presented to the hospital , symptoms have resolved Was seen by PCP on Monday and brain MRI ordered for Left sided MAR of several weeks, and feeling off balance sometimes In the ED CT head, CTA head/ neck obtained and unremarkable ED physician discussed w/ tele stroke neurology and it was recommended pt is admitted for further work up/ brain MRI. Brain MRI ordered neurochecks Echo w/ bubble study Fasting lipid panel ordered hgb A1c 6.5% as of May 2025, per outpt chart review cont. Eliquis (for Afib), Crestor Neurology consult Hx of pAfib on Eliquis HR controlled, on metoprolol succinate 50 mg daily (pt says takes daily instead of BID as his BP was on lower side) HTN/HLD - cont. lisinopril, crestor, metoprolol (as above) - obtain LDL, as above - monitor BP, meds may need further adjustment as pt's BP elevated in ER Hx of dilated aortic root - follows up as outpt - echo ordered as above DM type 2 - current A1c 6.5% - diet controlled CKD stage 3a - current Cr 1.1 - cont. to monitor renal function - BMP for tmrw AM ordered Hyponatremia - current Na level 132 - on outpt labs 05/23/2025 - Na level was 138 - will re-check in the morning, BMP ordered History of Present Illness Chief Complaint: stroke-like symptoms Primary Care Provider: Wesley Leary MD Pt is a 75 yo M w/ hx of paroxysmal Afib on Eliquis, HTN, HLD, dilated aortic root, DM type 2 , CKD stage 3a, RLS, hx of prostate ca, hx of TIA who presents w/ stroke- like symptoms. Pt says he was doing crossword puzzles in the afternoon when he realized they were not making sense, and he called on his to tell her something was wrong. His speech was also garbled and he could not spell which he is usually good at. By the time they presented to the hospital , symptoms have resolved. Pt denies any fever, chills, chest pain, shortness of breath, abd.pain, n/v. Reports he was seen by his PCP on Monday for routine visit, also followed up with urology for his hx of prostate cancer. He reports having left sided MAR for several weeks and also feels his balance is sometimes off. His PCP ordered brain MRI for him which he is scheduled for/ not done yet. He reports left sided MAR comes and goes. When discussing medications, pt says he has been taking metoprolol only once a day instead of BID as he was instructed because his BP has been on lower side. In ED BP found elevated. Pt found sitting up in bed in NAD, awake, alert, oriented, answering appropriately. Pt's present at the bedside and also helps provide history. Pt's speech is normal, he is moving extremities without difficulty and currently denies having any previous symptoms. ED physician discussed w/ tele stroke neurology and it was recommended pt is admitted for further work up/ brain MRI. Allergies Allergy/AdvReac Type Severity Reaction Status Date / Time animal dander Allergy Intermediate Itchy/Watery Verified 10/01/24 11:30 eyes, Congestion grass pollen Allergy Intermediate Itchy/Watery Verified 10/01/24 11:30 eyes, Congestion mold Allergy Intermediate Congestion Verified 10/01/24 11:30 warfarin [From Coumadin] Allergy Unknown Unknown Verified 10/01/24 11:30 Home Medications Medication Instructions Recorded Confirmed Type multivitamin 1 tab PO QAM 09/23/21 05/31/25 History escitalopram oxalate 10 mg tablet 10 mg PO QAM 05/23/24 05/31/25 History (Lexapro) albuterol sulfate 90 mcg/actuation 2 puff inhalation Q4H PRN wheezing 08/26/24 05/31/25 History aerosol inhaler or dyspnea apixaban 5 mg tablet (Eliquis) 5 mg PO BID 08/26/24 05/31/25 History metoprolol succinate 50 mg 50 mg PO BID 08/26/24 05/31/25 History tablet,extended release 24 hr iron,carbonyl 65 mg-vitamin C 125 1 tab PO DAILY 10/01/24 05/31/25 History mg tablet,delayed release (Vitron-C) lisinopril 10 mg tablet 0 mg PO UD 10/01/24 05/31/25 History lisinopril 20 mg tablet 20 mg PO UD 10/01/24 05/31/25 History montelukast 10 mg tablet 10 mg PO QPM 10/01/24 05/31/25 History diphenoxylate-atropine 2.5 1 tab PO UD PRN Other 05/31/25 05/31/25 History mg-0.025 mg tablet (Lomotil) trospium 20 mg tablet 20 mg PO DAILY 05/31/25 05/31/25 History Past Med/Surg History Problem List Stroke-like symptom TIA (transient ischemic attack) (Acute) Irritable bowel syndrome with alternating bowel habits Vasovagal syndrome Labile essential hypertension Demand ischemia Chronic diarrhea of unknown origin Orthostasis Diarrhea PAF (paroxysmal atrial fibrillation) Fall Elevated troponin Chest pain (Acute) Fall from standing (Acute) Non-ST elevation ME (NSTEMI) (Acute) Dizziness (Acute) GERD (gastroesophageal reflux disease) (Acute) Essential hypertension Medical History T2DM (type 2 diabetes mellitus) Enlarged thoracic aorta Echo 06/2024: Proximal ascending thoracic aorta is moderately enlarged, 4.6 cm Dilated aortic root Echo 06/2024: Moderately enlarged aortic root, 4.6 cm Environmental allergies Hx of transient ischemic attack (TIA) Several years ago (~), no issues since Atrial fibrillation Follows with [facility] Pneumomediastinum Hx 05/2024, [facility] admission Hx of sepsis 05/2024- after dental procedures > [facility] admission GERD (gastroesophageal reflux disease) Hypertension BPH (benign prostatic hyperplasia) Depression Restless leg syndrome Per records, patient unsure Prostate CA 2019 - XRT Surgical History Hx of colonoscopy History of penile implant Per records History of dental surgery Hx of tonsillectomy History of hernia surgery x2 History of total left knee replacement H/O vasectomy Family History Father , age 62 Heart disease Mother , ~70 y/o Heart disease Stroke Social History Smoking Status: Never smoker Second Hand Exposure: No; Do You Dip or Chew Tobacco: No; Hx Alcohol Use: Yes Alcohol type: beer Hx Substance Use: No Preferred Language: Danish Communication Ability: Effective Aviation Survival Technician Required: No Beliefs That Will Affect Care: None Current Living Situation: Spouse Current Living Situation Comment: lives with fiance Feels Safe at Home: Yes Assistive Devices: Cane and Walker Review of Systems Review of Systems: All systems reviewed & are unremarkable except as noted in HPI & below Physical Exam Constitutional: WD/WN, vitals as above Eyes: PERRL, conjunctivae normal, anicteric sclerae ENMT: external ear and nose normal, oropharynx normal Neck: trachea midline, no thyromegaly Respiratory: normal respiratory effort, lungs clear to auscultation Cardiovascular: RRR, no murmur, no edema Chest (Breasts): Chest: normal inspection of chest Gastrointestinal (Abdomen): normal bowel sounds, soft, nontender, no hepatosplenomegaly Musculoskeletal: no cyanosis or clubbing, extremities motor strength 5/5 Skin: no rashes, warm and dry Neurologic: PERRL, EOMI, accommodation nl, no face palsy, no dysarthria moves extremities Psychiatric: A+Ox3, euthymic affect Results & Data Results & Data Vital Signs (Past 12 Hours) Vital Signs Temp Pulse Pulse Resp BP BP BP 05/31/25 17:07 64 22 173/112 H 05/31/25 17:07 64 22 173/112 H 05/31/25 16:59 71 05/31/25 16:58 114 H 05/31/25 16:48 66 21 157/102 H 05/31/25 16:42 160/110 H 05/31/25 16:40 66 183/114 H 05/31/25 16:38 71 16 177/115 H 05/31/25 16:20 36.6 C 75 18 176/117 H Pulse Ox O2 Del Method 05/31/25 17:07 96 Room Air 05/31/25 17:07 96 Room Air 05/31/25 16:59 05/31/25 16:58 05/31/25 16:48 95 Room Air 05/31/25 16:42 05/31/25 16:40 94 Room Air 05/31/25 16:38 94 Room Air 05/31/25 16:20 93 Room Air Laboratory Results 05/31/25 05/31/25 Range/Units 16:57 16:43 WBC 8.02 (4.8-10.8) K/ul RBC 4.67 L (4.70-6.10) M/uL Hgb 14.5 (14.0-18.0) g/dl Hct 42.9 (42.0-52.0) % MCV 91.9 (80.0-100.0) fL MCH 31.0 (25.0-34.0) pg MCHC 33.8 (32.0-36.0) g/dL RDW Std Deviation 43.7 (36.4-46.3) fL RDW Coeff of Carine 13.0 (11.5-14.5) % Plt Count 239 (130-400) K/uL MPV 10.3 (9.4-12.4) fL Immature Gran % (Auto) 0.2 % Neut % (Auto) 63.9 % Lymph % (Auto) 21.6 % [place] % (Auto) 10.5 % Eos % (Auto) 3.4 % Baso % (Auto) 0.4 % Neut # (Auto) 5.13 (1.40-6.50) K/uL Lymph # (Auto) 1.73 (1.20-3.40) K/uL [place] # (Auto) 0.84 H (0.11-0.59) K/uL Eos # (Auto) 0.27 (0.00-0.50) K/uL Baso # (Auto) 0.03 (0.00-0.20) K/uL Immature Gran # (Auto) 0.02 (0.01-0.20) K/uL PT 11.8 (9.0-12.0) Seconds INR 1.1 (0.9-1.1) APTT 29 (21-31) Seconds PTT Ratio 1.1 Sodium 132 L (136-145) mmol/L Potassium 4.2 (3.5-5.1) mmol/L Chloride 100 (98-107) mmol/L Carbon Dioxide 28 (21-32) mmol/L Anion Gap 4 (3-11) BUN 20 (6-23) mg/dl Creatinine 1.16 (0.6-1.4) mg/dl Est Cr Clr Drug Dosing 64.3 ml/min eGFR 64.87 BUN/Creatinine Ratio 17.2 (10-20) Glucose 114 H (70-99(Fasting)) mg/dl Calcium 9.1 (8.6-10.3) mg/dl Magnesium 2.2 (1.7-2.4) mg/dl Total Bilirubin 1.4 H (0.2-1.0) mg/dl AST 18 (13-39) U/L ALT 17 (7-52) U/L Alkaline Phosphatase 42 (34-104) U/L Troponin I High Sens 14.3 (0-20) pg/ml Total Protein 6.4 (6.0-8.3) gm/dl Albumin 3.7 (3.4-5.0) gm/dl Globulin 2.7 (2.5-4.0) gm/dl Albumin/Globulin Ratio 1.4 (0.9-2) Blood Type A Negative Antibody Screen NEGATIVE Diagnostic Findings Head CT FINDINGS: Limitations: None. Brain and extra-axial spaces: There is age appropriate cortical atrophy and chronic ischemic periventricular white matter hypodensity. No acute infarct, hemorrhage or mass noted. Bones/joints: No acute changes. Soft tissues: No significant abnormality noted. Vasculature: No acute abnormality noted. Sinuses: No layering fluid in the visualized portions of the paranasal sinuses. Mastoid air cells: No mastoid effusion. Orbits: No significant abnormality noted. IMPRESSION: Cerebral atrophy. No acute changes. CTA head/neck FINDINGS: HEAD: Right anterior cerebral artery: No abnormality noted. No occlusion or significant stenosis. Anterior communicating artery is present. No aneurysm. Right middle cerebral artery: No abnormality noted. No occlusion or significant stenosis. No aneurysm. Right posterior cerebral artery: No abnormality noted. No occlusion or significant stenosis. No aneurysm. Right intracranial internal carotid artery: Atherosclerotic calcification noted. No significant stenosis. No dissection or occlusion. Right intracranial vertebral artery: No abnormality noted. No significant stenosis. No dissection or occlusion. Left anterior cerebral artery: No abnormality noted. No occlusion or significant stenosis. No aneurysm. Left middle cerebral artery: No abnormality noted. No occlusion or significant stenosis. No aneurysm. Left posterior cerebral artery: No abnormality noted. No occlusion or significant stenosis. No aneurysm. Left intracranial internal carotid artery: Atherosclerotic calcification noted. No significant stenosis. No dissection or occlusion. Left intracranial vertebral artery: No abnormality noted. No significant stenosis. No dissection or occlusion. Basilar artery: No abnormality noted. No occlusion or significant stenosis. No aneurysm. Other vasculature: No vascular malformation. NECK: Right common carotid artery: No abnormality noted. No significant stenosis. No dissection or occlusion. Right extracranial internal carotid artery: Calcific plaque at the bulb. No significant stenosis. No dissection or occlusion. Right external carotid artery: No abnormality noted. No occlusion. Right extracranial vertebral artery: No abnormality noted. No significant stenosis. No dissection or occlusion. Left common carotid artery: No abnormality noted. No significant stenosis. No dissection or occlusion. Left extracranial internal carotid artery: Calcific plaque at the bulb. No significant stenosis. No dissection or occlusion. Left external carotid artery: No abnormality noted. No occlusion. Left extracranial vertebral artery: No abnormality noted. No significant stenosis. No dissection or occlusion. Lung apices: No significant abnormality noted. HEAD and NECK: Bones/joints: No significant abnormality. Soft tissues: No abnormality noted. CAROTID STENOSIS REFERENCE USING NASCET CRITERIA: % ICA stenosis = (1 - narrowest ICA diameter/diameter of distal cervical ICA) x 100. Mild - <50% stenosis. Moderate - 50-69% stenosis. Severe - 70-94% stenosis. Near occlusion - 95-99% stenosis. Occluded - 100% stenosis. IMPRESSION: Negative CTA carotid and CTA brain.
[2025-05-31] MEDS ORDERED: ACETAMINOPHEN SUSP 160 MG/5 ML BTL PO STA (18:56)
[2025-05-31] MEDS: ACETAMINOPHEN 500 MG TAB PO STA (19:09)
[2025-05-31] MEDS: LABETALOL HCL IV 5 MG/ML 20ML IV STA ×2 (23:06→23:37)
[2025-05-31] MEDS: APIXABAN 5 MG TABLET PO SCH (23:32)
[2025-05-31] MEDS: MONTELUKAST SODIUM 10 MG TABLET PO SCH (23:32)
[2025-06-01] MEDS: MELATONIN 3 MG TAB PO PRN (01:43)
[2025-06-01] MEDS: ACETAMINOPHEN 325 MG TAB PO PRN (05:44)
[2025-06-01] MEDS: LABETALOL HCL IV 5 MG/ML 20ML IV STA ×3 (05:45→23:20)
[2025-06-01] MEDS: SODIUM CHLORIDE 0.65% NA SOLN 45 ML (OCEAN) PRN (06:05)
--- NOTE | 2025-06-01 07:36 | Hospitalist Progress Note ---
Date of Service June 01, 2025 Assessment & Plan (1) Stroke-like symptom: Plan: Patient is a 75y/o M with PMHx significant for PAF chronically anticoagulated on Eliquis, HTN, HLD, remote history of TIA, moderate aortic root and ascending aortic enlargement, diet-controlled DMII, BPH, CKD stage IIIa, RLS and history of prostate CA who presented to the ED on 05/31/25 with strokelike sx. Acute confusion and speech difficulty starting around 3:30PM on 05/31/25 while doing word puzzles on the computer. Could not spell, garbling speech per patient's who witnessed the event. Nursing in ED also appreciated a slight left-sided facial droop. Called STROKE ALERT in the ED. Head CT without no acute abnormalities, cerebral atrophy. Head/neck CTA grossly unremarkable. Seen and evaluated by telestroke neurology. -Pt not TNK candidate as sx rapidly resolved, also on chronic anticoagulation with Eliquis. -Advised to admit for full stroke evaluation. 06/01/25 TTE with EF 60-65%, grade I DD, mild AR, mild PVR, mild MR, mild TR, moderate aortic root dilatation. Brain MRI without evidence of acute infarct, intracranial hemorrhage or mass effect. Moderate periventricular and subcortical white matter T2/FLAIR hyperintensity is nonspecific, but commonly attributed to chronic microvascular ischemic changes. Neurologically intact on exam today. Only neurological complaint is new-onset intermittent headaches x 2-3wk, prima rily in L frontal and occipital regions. No reported visual changes but does experiencing coinciding midline neck pain, irritability with these. Possible that presentation sales [employer] of complex migraine syndrome vs TIA. Discussed case with neuro, Dr. Leary, via TT with following recommendations: -Continue Eliquis 5mg BID, increase rosuvastatin to 20mg daily. -1 month follow up in stroke neurology clinic. -Trial migraine cocktail with diphenhydramine 12.5mg IV every 6 hours, ketorolac 15mg IV every 6 hours, IV fluids rate 125 mL/hour, magnesium sulfate 2gm IV daily, pantoprazole 40mg daily, Compazine 10mg IV every 6 hours. If this regimen is ineffective, can add prednisone 20 mg daily and valproic acid 500 mg IV daily. -Goal SBP<160. -If unable to control headaches would recommend MRI with contrast and LP. (2) Hypertensive urgency: Plan: Required few doses of IV labetalol since admission. BP started to uptrend today >> 189/121 around 13:00 requiring additional dose of IV labetalol. BP improving, 130s/90s at time of my reeval in the afternoon shortly before 15:00. Toprol-XL was recently reduced in OP setting down to 50mg daily from BID dosing (2/2 hypotension). Goal SBP<160 (as per above). Will reinstate BID Toprol-XL 50mg dosing tonight. Will also increase lisinopril dosing to 30mg daily from 20mg daily starting tomorrow AM. Monitor BP closely overnight. (3) Hyponatremia: Plan: Noted on admission, resolved on repeat labs this AM. No further w/u required at this time. (4) PAF (paroxysmal atrial fibrillation): Plan: Chronically anticoagulated on Eliquis - continue. Remains in NSR on tele, continue BB as above. Other chronic medical conditions: HLD - Continue rosuvastatin at increased dosing as per above. History of moderate aortic root and ascending aortic enlargement - 4.6cm and stable per TTE done in August 2024. DMII - Diet-controlled, updated Hgb A1c 6.8%. CKD stage IIIa - Cr stable, baseline Cr 1.1-1.3 per OP chart review. Continue to monitor, avoid nephrotoxic agents as able. DVT Prophylaxis: SCDs/TEDs, Eliquis Code Status: FULL CODE PCP: Wesley Leary MD Disposition: Hopeful DC tomorrow if MAR improving and BP controlled Patient seen in collaboration with Dr. Arias. Please see addendum. I spent a total of 65 minutes coordinating, documenting, and providing care for this patient excluding time spent in the performance of separately billed services or time spent by another provider/QHP. This included personally reviewing all current laboratories and imaging studies, medical reconciliation, outpatient chart review and discussion with specialists. This chart was completed in part utilizing Speech Voice Recognition Software. Grammatical errors, random word insertions, pronoun errors, and incomplete sentences are an occasional consequence of this system due to software limitations, ambient noise, and hardware issues. Any formal questions or concerns about the content, text, or information contained within the body of this dictation should be directly addressed to the provider for clarification. Admission and Anticipated Discharge Date Admission Date: May 31, 2025 Supervising Physician Co-Signing Physician Notes Patient seen and examined Agree with findings as detailed by Cyndy Peres PA-C Subjective Patient seen and examined in room N284-2. TRISTANO. Offers no neurological complaints. Received dose of IV labetalol overnight, BP 150s/90s this morning at the time of my evaluation shortly after 8PM. Has been experiencing intermittent headaches for the past several weeks, mostly left-sided and in occipital region. Chronic gait abnormality secondary to lumbar DDD, unchanged from baseline. Ambulates with cane at baseline. Review of Systems Review of Systems: At least ten systems reviewed and negative, except as noted in the subjective section. Physical Exam Physical Exam: General: WD/WN, elderly M, laying down in bed, A&Ox3, pleasant, speech clear and conversing appropriately. HEENT: Normocephalic, atraumatic. Conjunctivae normal, anicteric sclerae. External ear and nose normal, oropharynx normal. Respiratory: Normal respiratory effort, lungs clear to auscultation bilaterally. No accessory muscle use. Cardiovascular: RRR, normal peripheral pulses, no BLE edema. Abdomen/GI: Normal bowel sounds, soft, nontender to palpation in all quadrants. Extremities/Musculoskeletal: No cyanosis or clubbing, extremities motor strength intact, moves all extremities. Neurologic: No overt focal deficits, CN's II-XI not formally tested but appear grossly intact bilaterally. Results & Data Results & Data Vital Signs (Past 12 Hours) Vital Signs Temp Pulse Pulse Resp BP BP BP 06/01/25 06:45 70 06/01/25 06:07 69 157/93 H 06/01/25 05:45 72 184/106 H 06/01/25 05:00 36.6 C 72 20 184/106 H 05/31/25 23:57 169/96 H 05/31/25 23:40 05/31/25 23:30 73 169/96 H 05/31/25 23:06 71 200/106 H 05/31/25 22:28 72 05/31/25 22:28 36.9 C 71 20 200/106 H 05/31/25 21:00 74 20 161/119 H 05/31/25 20:53 75 Pulse Ox O2 Del Method 06/01/25 06:45 06/01/25 06:07 06/01/25 05:45 06/01/25 05:00 94 Room Air 05/31/25 23:57 05/31/25 23:40 Room Air 05/31/25 23:30 05/31/25 23:06 05/31/25 22:28 05/31/25 22:28 95 Room Air 05/31/25 21:00 94 Room Air 05/31/25 20:53 Laboratory Results Short CBC 05/31/25 06/01/25 Range/Units 16:43 09:10 WBC 8.02 8.67 (4.8-10.8) K/ul Hgb 14.5 15.2 (14.0-18.0) g/dl Hct 42.9 46.7 (42.0-52.0) % Plt Count 239 230 (130-400) K/uL BMP 05/31/25 16:43 Sodium 132 L Potassium 4.2 Chloride 100 Carbon Dioxide 28 BUN 20 Creatinine 1.16 Glucose 114 H Calcium 9.1 Liver Function 05/31/25 Range/Units 16:43 Total Bilirubin 1.4 H (0.2-1.0) mg/dl AST 18 (13-39) U/L ALT 17 (7-52) U/L Alkaline Phosphatase 42 (34-104) U/L Albumin 3.7 (3.4-5.0) gm/dl Diagnostic Findings Head CT 05/31/25 16:23 EXAM: CT Head Without Intravenous Contrast INDICATION: Neurologic deficit TECHNIQUE: Axial computed tomography images of the head/brain without intravenous contrast. Sagittal and/or coronal reformats are provided. Sagittal and coronal reformatted images were created and reviewed. This CT exam was performed using one or more of the following dose reduction techniques: automated exposure control, adjustment of the mA and/or kV according to patient size, and/or use of iterative reconstruction technique. COMPARISON: 10/01/2024 FINDINGS: Limitations: None. Brain and extra-axial spaces: There is age appropriate cortical atrophy and chronic ischemic periventricular white matter hypodensity. No acute infarct, hemorrhage or mass noted. Bones/joints: No acute changes. Soft tissues: No significant abnormality noted. Vasculature: No acute abnormality noted. Sinuses: No layering fluid in the visualized portions of the paranasal sinuses. Mastoid air cells: No mastoid effusion. Orbits: No significant abnormality noted. IMPRESSION: Cerebral atrophy. No acute changes. ACT 112: N/A Electronically signed by Naila Burgos 05-31-2025 4:51 PM Head CTA 05/31/25 16:23 EXAM: CT Angiography Head and Neck With Intravenous Contrast INDICATION: Neurologic deficit TECHNIQUE: [place]/head and neck CT angiography protocol performed with intravenous contrast. Sagittal and coronal reformatted images were created and reviewed. This CT exam was performed using one or more of the following dose reduction techniques: automated exposure control, adjustment of the mA and/or kV according to patient size, and/or use of iterative reconstruction technique. MIP reconstructed images were created and reviewed. CONTRAST: 119 ml of Optiray 320 was administered intravenously. COMPARISON: None. FINDINGS: HEAD: Right anterior cerebral artery: No abnormality noted. No occlusion or significant stenosis. Anterior communicating artery is present. No aneurysm. Right middle cerebral artery: No abnormality noted. No occlusion or significant stenosis. No aneurysm. Right posterior cerebral artery: No abnormality noted. No occlusion or significant stenosis. No aneurysm. Right intracranial internal carotid artery: Atherosclerotic calcification noted. No significant stenosis. No dissection or occlusion. Right intracranial vertebral artery: No abnormality noted. No significant stenosis. No dissection or occlusion. Left anterior cerebral artery: No abnormality noted. No occlusion or significant stenosis. No aneurysm. Left middle cerebral artery: No abnormality noted. No occlusion or significant stenosis. No aneurysm. Left posterior cerebral artery: No abnormality noted. No occlusion or significant stenosis. No aneurysm. Left intracranial internal carotid artery: Atherosclerotic calcification noted. No significant stenosis. No dissection or occlusion. Left intracranial vertebral artery: No abnormality noted. No significant stenosis. No dissection or occlusion. Basilar artery: No abnormality noted. No occlusion or significant stenosis. No aneurysm. Other vasculature: No vascular malformation. NECK: Right common carotid artery: No abnormality noted. No significant stenosis. No dissection or occlusion. Right extracranial internal carotid artery: Calcific plaque at the bulb. No significant stenosis. No dissection or occlusion. Right external carotid artery: No abnormality noted. No occlusion. Right extracranial vertebral artery: No abnormality noted. No significant stenosis. No dissection or occlusion. Left common carotid artery: No abnormality noted. No significant stenosis. No dissection or occlusion. Left extracranial internal carotid artery: Calcific plaque at the bulb. No significant stenosis. No dissection or occlusion. Left external carotid artery: No abnormality noted. No occlusion. Left extracranial vertebral artery: No abnormality noted. No significant stenosis. No dissection or occlusion. Lung apices: No significant abnormality noted. HEAD and NECK: Bones/joints: No significant abnormality. Soft tissues: No abnormality noted. CAROTID STENOSIS REFERENCE USING NASCET CRITERIA: % ICA stenosis = (1 - narrowest ICA diameter/diameter of distal cervical ICA) x 100. Mild - <50% stenosis. Moderate - 50-69% stenosis. Severe - 70-94% stenosis. Near occlusion - 95-99% stenosis. Occluded - 100% stenosis. IMPRESSION: Negative CTA carotid and CTA brain. ACT 112: N/A Electronically signed by Naila Burgos 05-31-2025 4:54 PM Neck CTA 05/31/25 16:23 EXAM: CT Angiography Head and Neck With Intravenous Contrast INDICATION: Neurologic deficit TECHNIQUE: [place]/head and neck CT angiography protocol performed with intravenous contrast. Sagittal and coronal reformatted images were created and reviewed. This CT exam was performed using one or more of the following dose reduction techniques: automated exposure control, adjustment of the mA and/or kV according to patient size, and/or use of iterative reconstruction technique. MIP reconstructed images were created and reviewed. CONTRAST: 119 ml of Optiray 320 was administered intravenously. COMPARISON: None. FINDINGS: HEAD: Right anterior cerebral artery: No abnormality noted. No occlusion or significant stenosis. Anterior communicating artery is present. No aneurysm. Right middle cerebral artery: No abnormality noted. No occlusion or significant stenosis. No aneurysm. Right posterior cerebral artery: No abnormality noted. No occlusion or significant stenosis. No aneurysm. Right intracranial internal carotid artery: Atherosclerotic calcification noted. No significant stenosis. No dissection or occlusion. Right intracranial vertebral artery: No abnormality noted. No significant stenosis. No dissection or occlusion. Left anterior cerebral artery: No abnormality noted. No occlusion or significant stenosis. No aneurysm. Left middle cerebral artery: No abnormality noted. No occlusion or significant stenosis. No aneurysm. Left posterior cerebral artery: No abnormality noted. No occlusion or significant stenosis. No aneurysm. Left intracranial internal carotid artery: Atherosclerotic calcification noted. No significant stenosis. No dissection or occlusion. Left intracranial vertebral artery: No abnormality noted. No significant stenosis. No dissection or occlusion. Basilar artery: No abnormality noted. No occlusion or significant stenosis. No aneurysm. Other vasculature: No vascular malformation. NECK: Right common carotid artery: No abnormality noted. No significant stenosis. No dissection or occlusion. Right extracranial internal carotid artery: Calcific plaque at the bulb. No significant stenosis. No dissection or occlusion. Right external carotid artery: No abnormality noted. No occlusion. Right extracranial vertebral artery: No abnormality noted. No significant stenosis. No dissection or occlusion. Left common carotid artery: No abnormality noted. No significant stenosis. No dissection or occlusion. Left extracranial internal carotid artery: Calcific plaque at the bulb. No significant stenosis. No dissection or occlusion. Left external carotid artery: No abnormality noted. No occlusion. Left extracranial vertebral artery: No abnormality noted. No significant stenosis. No dissection or occlusion. Lung apices: No significant abnormality noted. HEAD and NECK: Bones/joints: No significant abnormality. Soft tissues: No abnormality noted. CAROTID STENOSIS REFERENCE USING NASCET CRITERIA: % ICA stenosis = (1 - narrowest ICA diameter/diameter of distal cervical ICA) x 100. Mild - <50% stenosis. Moderate - 50-69% stenosis. Severe - 70-94% stenosis. Near occlusion - 95-99% stenosis. Occluded - 100% stenosis.
[2025-06-01] MEDS: METOPROLOL SUCC 50MG EXT REL TAB PO SCH ×2 (08:00→20:03)
[2025-06-01] MEDS: ROSUVASTATIN CALCIUM 10 MG TAB PO SCH (08:00)
[2025-06-01] MEDS: ESCITALOPRAM OXALATE 10 MG TAB PO SCH (08:00)
--- NOTE | 2025-06-01 09:15 | Electrocardiogram Report ---
Test Reason : Blood Pressure : */* mmHG Vent. Rate : 65 BPM Atrial Rate : 65 BPM P-R Int : 196 ms QRS Dur : 106 ms QT Int : 424 ms P-R-T Axes : 18 -68 25 degrees QTcB Int : 440 ms Normal sinus rhythm Incomplete right bundle branch block Left anterior fascicular block Moderate voltage criteria for LVH, may be normal variant Nonspecific ST abnormality Abnormal ECG When compared with ECG of 01-Oct-2024 09:00, Minimal criteria for Septal infarct are no longer Present Confirmed by Prashanth Poon ([id number]) on 06/01/2025 9:14:43 AM Referred By: REFERRED SELF Confirmed By: Prashanth Poon
[2025-06-01 09:26] LABS: Hematocrit (blood only) 46.7 % (42.0-52.0); Hemoglobin 15.2 g/dl (14.0-18.0); Mean Corpuscular Hemoglobin 30.4 pg (25.0-34.0); Mean Corpuscular Volume 93.4 fL (80.0-100.0); Platelet Count 230 K/uL (130-400); RDW Standard Deviation 45.2 fL (36.4-46.3); Red Blood Count 5.00 M/uL (4.70-6.10); White Blood Count 8.67 K/ul (4.8-10.8)
[2025-06-01 09:43] LABS: Anion Gap 7.0 (3-11); Blood Urea Nitrogen 18.0 mg/dl (6-23); Calcium 9.5 mg/dl (8.6-10.3); Carbon Dioxide 29.0 mmol/L (21-32); Chloride 101.0 mmol/L (98-107); Cholesterol 178.0 mg/dl (0-200); Creatinine Clr Calc Pharmacy 65.4 ml/min; Glucose 165.0 mg/dl (70-99(Fasting)); HDL Cholesterol 36.0 mg/dl; Magnesium 2.1 mg/dl (1.7-2.4); Potassium 4.3 mmol/L (3.5-5.1); Sodium 137.0 mmol/L (136-145); Triglycerides 175.0 mg/dl (0-150)
--- NOTE | 2025-06-01 10:49 | Magnetic Resonance Report ---
HISTORY: Acute stroke yesterday with left-sided headache. TECHNIQUE: MRI of the brain without contrast. COMPARISON: CT of the head and CT angiography of the head and neck dated 05/31/2025. FINDINGS: The cerebellar tonsils do not extend below the foramen magnum. The sella is not expanded. No areas of restricted diffusion to suggest acute infarct.Patchy T2/FLAIR hyperintensity involving the periventricular and subcortical white matter is nonspecific. These findings are commonly attributed to chronic microvascular ischemic changes. Moderate diffuse volume loss. The globes and orbits are unremarkable. No areas of susceptibility artifact to suggest intracranial hemorrhage or significant abnormal hemosiderin deposition. The major intracranial flow voids are maintained. Ventricular caliber is appropriate for the moderate degree of volume loss. Fourth ventricle is midline. The basal cisterns are patent. The paranasal sinuses and mastoid air cells are well aerated. The soft tissues of the skull base and scalp are unremarkable. IMPRESSION: * No acute intracranial findings. No evidence of acute infarct, intracranial hemorrhage, or mass effect. * Moderate periventricular and subcortical white matter T2/FLAIR hyperintensity is nonspecific, but commonly attributed to chronic microvascular ischemic changes. Other differential considerations include demyelinating disease or other infectious or inflammatory etiologies. * Moderate diffuse volume loss. Electronically signed by Estuardo Campbell 06-01-2025 10:48 AM
[2025-06-01 11:04] LABS: Hemoglobin A1C 6.8 % (4.5-5.6)
--- NOTE | 2025-06-01 11:27 | XCELERA ---
[id number]
--- NOTE | 2025-06-01 14:49 | Neurology Consultation ---
Date of Consultation June 01, 2025 Assessment & Plan (1) TIA (transient ischemic attack): CT head unremarkable. CT angiogram head and neck unremarkable. MRI brain shows some white matter ischemic disease but otherwise unremarkable. TTE LVEF 60-65%, mildly dilated left atrium, no patent foramen ovale. -Recommend continue home apixaban 5 mg twice daily - increase home rosuvastatin to 20 mg daily - I discussed with the patient and his common stroke symptoms and reasons to present to the Emergency Department including trouble speaking, trouble understanding, visual deficits, unilateral weakness, numbness, or paresthesias. -discussed that even with the best medical therapies the risk of recurrent stroke is never 0 - recommend 1 month follow up in stroke Neurology Clinic (2) Headache: Patient has had a 2-3 week history of new onset headaches with some personality changes, confusion, irritability, midline neck pain. - patient is taking Tylenol for the headaches without relief - recommend migraine cocktail with diphenhydramine 12.5 mg IV every 6 hours, ket orolac 15 mg IV every 6 hours, IV fluids rate 125 mL/hour, magnesium sulfate 2 mg IV daily, pantoprazole 40 mg daily, Compazine 10 mg IV every 6 hours - if above regimen is ineffective, can add prednisone 20 mg daily and valproic acid 500 mg IV daily. - Would recommend SBP < 160. - If unable to control headaches would recommend MRI with contrast and LP. I discussed my recommendations with Cyndy Peres. Thank you for this consult. Please call with questions. Telehealth Consultation Telehealth Information Telehealth Information: I performed this visit using a real-time telehealth connection between my location and the patients originating location ([facility]). After connecting through interactive tele-video, patient was identified by name and date of and/or wristband check.Patient (or authorized healthcare order entry representative) was informed that this was a telemedicine visit and it was being conducted confidentially over secure lines. My office door was closed and no one else was present in the room with me.Patient (or authorized healthcare repr esentative) provided consent to proceed with the visit, expressed an understanding of privacy and security of the telemedicine visit, and gave permission to have a hospital order entry representative in the room in order to assist with the visit and to conduct portions of the visit, as needed. I informed the patient (or authorized healthcare order entry representative) that I reviewed their record and presented the opportunity for them to ask any questions regarding the visit today. The patient agreed to participate. History of Present Illness Reason for Consultation: Transient spell of confusion and abnormal speech, headache Attending Physician: Emily Arias MD History of Present Illness Clovis Bradford is a 75-year-old male with a past medical history of atrial fibrillation on apixaban, hypertension, hyperlipidemia, dilated aortic root, diabetes mellitus type 2, CKD, restless legs syndrome, history of prostate cancer, history of TIA who presents to [facility] Emergency Department on 06/01/2025 with a transient acute-onset inability to speak and inability to understand. CT head unremarkable. CT angiogram head and neck obtained and unremarkable. MRI brain shows some white matter ischemic disease but is otherwi se unremarkable. Transthoracic echocardiogram reveals LVEF 60-65%, mildly dilated left atrium, no patent foramen ovale. The patient at bedside. His is present for the encounter and helps to provide the history. The patient tells me that he had a transient episode of garbled speech, confusion, and inability to spell. His witnessed the event and said he did not make sense when this episode occurred. This is never happened before. At present, he feels back to his baseline. The patient tells me he has also been having a history of painful headaches which started a few weeks ago. Current head pain is 7/10 in severity. He reports associated symptoms of midline neck pain. His said he has been increasingly confused for the last 2 months and has had increased irritability. He takes Tylenol for the pain which somewhat helps. He denies nausea, vomiting, photophobia, or phonophobia. He does not take any headache preventatives nor has he been seen in headache Clinic. He is scheduled to get midline neck injections in July. Allergies Allergy/AdvReac Type Severity Reaction Status Date / Time animal dander Allergy Intermediate Itchy/Watery Verified 10/01/24 11:30 eyes, Congestion grass pollen Allergy Intermediate Itchy/Watery Verified 10/01/24 11:30 eyes, Congestion mold Allergy Intermediate Congestion Verified 10/01/24 11:30 warfarin [From Coumadin] Allergy Unknown Unknown Verified 10/01/24 11:30 Home Medications Medication Instructions Recorded Confirmed Type multivitamin 1 tab PO QAM 09/23/21 05/31/25 History escitalopram oxalate 10 mg tablet 10 mg PO QAM 05/23/24 05/31/25 History (Lexapro) albuterol sulfate 90 mcg/actuation 2 puff inhalation Q4H PRN wheezing 08/26/24 05/31/25 History aerosol inhaler or dyspnea apixaban 5 mg tablet (Eliquis) 5 mg PO BID 08/26/24 05/31/25 History metoprolol succinate 50 mg 50 mg PO BID 08/26/24 05/31/25 History tablet,extended release 24 hr iron,carbonyl 65 mg-vitamin C 125 1 tab PO DAILY 10/01/24 05/31/25 History mg tablet,delayed release (Vitron-C) lisinopril 10 mg tablet 0 mg PO UD 10/01/24 05/31/25 History lisinopril 20 mg tablet 20 mg PO UD 10/01/24 05/31/25 History montelukast 10 mg tablet 10 mg PO QPM 10/01/24 05/31/25 History diphenoxylate-atropine 2.5 1 tab PO UD PRN Other 05/31/25 05/31/25 History mg-0.025 mg tablet (Lomotil) trospium 20 mg tablet 20 mg PO DAILY 05/31/25 05/31/25 History Patient History Medical History T2DM (type 2 diabetes mellitus) Enlarged thoracic aorta Echo 06/2024: Proximal ascending thoracic aorta is moderately enlarged, 4.6 cm Dilated aortic root Echo 06/2024: Moderately enlarged aortic root, 4.6 cm Environmental allergies Hx of transient ischemic attack (TIA) Several years ago (~), no issues since Atrial fibrillation Follows with [facility] Cardio Pneumomediastinum Hx 05/2024, [facility] admission Hx of sepsis 05/2024- after dental procedures > [facility] admission GERD (gastroesophageal reflux disease) Hypertension BPH (benign prostatic hyperplasia) Depression Restless leg syndrome Per records, patient unsure Prostate CA 2019 - XRT Surgical History Hx of colonoscopy History of penile implant Per records History of dental surgery Hx of tonsillectomy History of hernia surgery x2 History of total left knee replacement H/O vasectomy Family History Father , age 62 Heart disease Mother , ~70 y/o Heart disease Stroke Social History Smoking Status: Never smoker Second Hand Exposure: No; Do You Dip or Chew Tobacco: No; Hx Alcohol Use: Yes Alcohol type: beer Hx Substance Use: No Preferred Language: Khmer Communication Ability: Effective Shingle Sawyer Required: No Beliefs That Will Affect Care: Evangelical Evangelical Beliefs: Taoism Current Living Situation: Spouse Current Living Situation Comment: home, 2 story Feels Safe at Home: Yes Safety Concerns: Feels Safe At This Time Assistive Devices: Cane and Denture - Upper Assistive Devices Comment: upper denture present Review of Systems ROS reviewed and negative except as above. Physical Exam Physical Exam: General Appearance: Alert HEENT: anicteric sclera, no scleral injection Lungs: respirations appear comfortable, no obvious increased work of breathing Extremities: No cyanosis or fingernail clubbing Skin: No rashes in exposed skin areas Objective Limited due to Televideo encounter Physical Exam: General Appearance: Alert Neurological Examination: Mental status: Alert and oriented. No dysarthria. Cranial Nerves: Extraocular movements intact and spontaneous. Face symmetric. Sensory: Normal sensory exam to light touch. Motor:Absent pronator drift. Strength: Antigravity in all extremities Results & Data Vital Signs (Past 12 Hours) Vital Signs Temp Pulse Pulse Pulse Resp BP BP 06/01/25 14:30 79 134/94 06/01/25 13:06 36.8 C 83 17 189/121 H 06/01/25 08:05 36.5 C 71 18 177/96 H 06/01/25 06:45 70 06/01/25 06:07 69 157/93 H 06/01/25 05:45 72 184/106 H 06/01/25 05:00 36.6 C 72 20 184/106 H BP Pulse Ox O2 Del Method 06/01/25 14:30 06/01/25 13:06 161/113 H 94 Room Air 06/01/25 08:05 94 Room Air 06/01/25 06:45 06/01/25 06:07 06/01/25 05:45 06/01/25 05:00 94 Room Air Laboratory Results 06/01/25 05/31/25 05/31/25 09:10 22:52 16:57 WBC 8.67 RBC 5.00 Hgb 15.2 Hct 46.7 MCV 93.4 MCH 30.4 MCHC 32.5 RDW Std Deviation 45.2 RDW Coeff of Carine 13.3 Plt Count 230 MPV 10.3 Immature Gran % (Auto) Neut % (Auto) Lymph % (Auto) [place] % (Auto) Eos % (Auto) Baso % (Auto) Neut # (Auto) Lymph # (Auto) [place] # (Auto) Eos # (Auto) Baso # (Auto) Immature Gran # (Auto) PT INR APTT PTT Ratio Sodium 137 Potassium 4.3 Chloride 101 Carbon Dioxide 29 Anion Gap 7 BUN 18 Creatinine 1.13 Est Cr Clr Drug Dosing 65.4 eGFR 66.94 BUN/Creatinine Ratio 15.9 Glucose 165 H Estimat Average Glucose 148 Hemoglobin A1c 6.8 H Calcium 9.5 Phosphorus 3.2 Magnesium 2.1 Total Bilirubin AST ALT Alkaline Phosphatase Troponin I High Sens Total Protein Albumin Globulin Albumin/Globulin Ratio Triglycerides 175 H Cholesterol 178 LDL Cholesterol, Calc 107 VLDL Cholesterol, Calc 35 H HDL Cholesterol 36 Cholesterol/HDL Ratio 4.9 Hepatitis C Ab Screen Negative Blood Type A Negative Antibody Screen NEGATIVE 05/31/25 16:43 WBC 8.02 RBC 4.67 L Hgb 14.5 Hct 42.9 MCV 91.9 MCH 31.0 MCHC 33.8 RDW Std Deviation 43.7 RDW Coeff of Carine 13.0 Plt Count 239 MPV 10.3 Immature Gran % (Auto) 0.2 Neut % (Auto) 63.9 Lymph % (Auto) 21.6 [place] % (Auto) 10.5 Eos % (Auto) 3.4 Baso % (Auto) 0.4 Neut # (Auto) 5.13 Lymph # (Auto) 1.73 [place] # (Auto) 0.84 H Eos # (Auto) 0.27 Baso # (Auto) 0.03 Immature Gran # (Auto) 0.02 PT 11.8 INR 1.1 APTT 29 PTT Ratio 1.1 Sodium 132 L Potassium 4.2 Chloride 100 Carbon Dioxide 28 Anion Gap 4 BUN 20 Creatinine 1.16 Est Cr Clr Drug Dosing 64.3 eGFR 64.87 BUN/Creatinine Ratio 17.2 Glucose 114 H Estimat Average Glucose Hemoglobin A1c Calcium 9.1 Phosphorus Magnesium 2.2 Total Bilirubin 1.4 H AST 18 ALT 17 Alkaline Phosphatase 42 Troponin I High Sens 14.3 Total Protein 6.4 Albumin 3.7 Globulin 2.7 Albumin/Globulin Ratio 1.4 Triglycerides Cholesterol LDL Cholesterol, Calc VLDL Cholesterol, Calc HDL Cholesterol Cholesterol/HDL Ratio Hepatitis C Ab Screen Blood Type Antibody Screen Diagnostic Findings Head CT 05/31/25 16:23 IMPRESSION: Cerebral atrophy. No acute changes. Electronically signed by Naila Burgos 05-31-2025 4:51 PM Head CTA 05/31/25 16:23 IMPRESSION: Negative CTA carotid and CTA brain. Electronically signed by Naila Burgos 05-31-2025 4:54 PM Neck CTA 05/31/25 16:23 IMPRESSION: Negative CTA carotid and CTA brain. Electronically signed by Naila Burgos 05-31-2025 4:54 PM Brain MRI 06/01/25 07:10 IMPRESSION: * No acute intracranial findings. No evidence of acute infarct, intracranial hemorrhage, or mass effect. * Moderate periventricular and subcortical white matter T2/FLAIR hyperintensity is nonspecific, but commonly attributed to chronic microvascular ischemic changes. Other differential considerations include demyelinating disease or other infectious or inflammatory etiologies. * Moderate diffuse volume loss. Electronically signed by Estuardo Campbell 06-01-2025 10:48 AM Medications Administered Home Medications Medication Instructions Recorded Confirmed Last Taken multivitamin 1 tab PO QAM 09/23/21 05/31/25 08/25/24 escitalopram oxalate 10 mg tablet 10 mg PO QAM 05/23/24 05/31/25 10/01/24 (Lexapro) albuterol sulfate 90 mcg/actuation 2 puff inhalation Q4H PRN wheezing 08/26/24 05/31/25 Unknown aerosol inhaler or dyspnea apixaban 5 mg tablet (Eliquis) 5 mg PO BID 08/26/24 05/31/25 10/01/24 metoprolol succinate 50 mg 50 mg PO BID 08/26/24 05/31/25 10/01/24 tablet,extended release 24 hr iron,carbonyl 65 mg-vitamin C 125 1 tab PO DAILY 10/01/24 05/31/25 Unknown mg tablet,delayed release (Vitron-C) lisinopril 10 mg tablet 0 mg PO UD 10/01/24 05/31/25 10/01/24 lisinopril 20 mg tablet 20 mg PO UD 10/01/24 05/31/25 10/01/24 montelukast 10 mg tablet 10 mg PO QPM 10/01/24 05/31/25 09/30/24 diphenoxylate-atropine 2.5 1 tab PO UD PRN Other 05/31/25 05/31/25 Unknown mg-0.025 mg tablet (Lomotil) trospium 20 mg tablet 20 mg PO DAILY 05/31/25 05/31/25 Unknown Active Medications Generic Name Dose Route Start Last Admin Trade Name Freq PRN Reason Stop Dose Admin Acetaminophen 650 mg 05/31/25 18:12 06/01/25 05:44 Acetaminophen 325 Mg Tab PO 06/30/25 18:11 650 mg Q4H PRN Administration Pain or Fever Apixaban 5 mg 05/31/25 21:00 06/01/25 08:00 Apixaban 5 Mg Tablet PO 06/30/25 20:59 5 mg BID MENA Administration Escitalopram Oxalate 10 mg 06/01/25 09:00 06/01/25 08:00 Escitalopram Oxalate 10 Mg Tab PO 07/01/25 08:59 10 mg QAM MENA Administration Melatonin 6 mg 06/01/25 01:18 06/01/25 01:43 Melatonin 3 Mg Tab PO 07/01/25 01:17 6 mg HS PRN Administration Sleep Montelukast Sodium 10 mg 05/31/25 21:00 05/31/25 23:32 Montelukast Sodium 10 Mg Tablet PO 06/30/25 20:59 10 mg QPM MENA Administration Pantoprazole Sodium 40 mg 06/01/25 09:00 06/01/25 08:00 Pantoprazole 40 Mg Tab PO 07/01/25 08:59 40 mg QAM MENA Administration Rosuvastatin Calcium 10 mg 06/01/25 09:00 06/01/25 08:00 Rosuvastatin Calcium 10 Mg Tab PO 07/01/25 08:59 10 mg QAM MENA Administration Sodium Chloride 1 sprays 06/01/25 05:50 06/01/25 06:05 Sodium Chloride 0.65% Na Soln 45 Ml (Mora) NA 07/01/25 05:49 1 sprays Q6H PRN Administration Nasal Congestion
[2025-06-01] MEDS: MAGNESIUM SULFATE / D5W 1 GM/100 ML BAG IV SCH (15:32)
[2025-06-01] MEDS: SODIUM CHLORIDE 0.9% 1,000 ML IV SCH (15:32)
[2025-06-01] MEDS: KETOROLAC TROMETHAMINE 15 MG/ML VIAL IV SCH (15:32)
[2025-06-01] MEDS: diphenhydrAMINE 50 MG/ML VIAL IV SCH (15:33)
[2025-06-01] MEDS: PROCHLORPERAZINE 10 MG in SYRINGE 8 ML IV SCH (15:44)
[2025-06-01 19:34] VITALS: RESP 20
[2025-06-02] MEDS: LABETALOL HCL IV 5 MG/ML 20ML IV STA ×2 (00:12→00:32)
[2025-06-02 08:28] LABS: Hematocrit (blood only) 44.4 % (42.0-52.0); Hemoglobin 14.9 g/dl (14.0-18.0); Mean Corpuscular Hemoglobin 31.2 pg (25.0-34.0); Mean Corpuscular Volume 92.9 fL (80.0-100.0); Platelet Count 225 K/uL (130-400); RDW Standard Deviation 45.5 fL (36.4-46.3); Red Blood Count 4.78 M/uL (4.70-6.10); White Blood Count 7.94 K/ul (4.8-10.8)
[2025-06-02] MEDS: ROSUVASTATIN CALCIUM 20 MG TAB PO SCH (08:42)
[2025-06-02 08:56] LABS: Anion Gap 7.0 (3-11); Blood Urea Nitrogen 19.0 mg/dl (6-23); Calcium 9.3 mg/dl (8.6-10.3); Carbon Dioxide 28.0 mmol/L (21-32); Chloride 105.0 mmol/L (98-107); Creatinine Clr Calc Pharmacy 56.4 ml/min; Glucose 117.0 mg/dl (70-99(Fasting)); Potassium 4.2 mmol/L (3.5-5.1); Sodium 140.0 mmol/L (136-145)
[2025-06-02 12:02] VITALS: TEMP 98.4; O2SAT 94
[2025-06-02 12:11] VITALS: BP 161/113; PULSE 71
--- NOTE | 2025-06-02 16:37 | Discharge Summary ---
Date of Service June 02, 2025 Admission HPI Per Admitting Provider Pt is a 75 yo M w/ hx of paroxysmal Afib on Eliquis, HTN, HLD, dilated aortic root, DM type 2 , CKD stage 3a, RLS, hx of prostate ca, hx of TIA who presents w/ stroke- like symptoms. Pt says he was doing crossword puzzles in the afternoon when he realized they were not making sense, and he called on his to tell her something was wrong. His speech was also garbled and he could not spell which he is usually g ood at. By the time they presented to the hospital , symptoms have resolved. Pt denies any fever, chills, chest pain, shortness of breath, abd.pain, n/v. Reports he was seen by his PCP on Monday for routine visit, also followed up with urology for his hx of prostate cancer. He reports having left sided MAR for several weeks and also feels his balance is sometimes off. His PCP ordered brain MRI for him which he is scheduled for/ not done yet. He reports left sided MAR comes and goes. When discussing medications, pt says he has been taking metoprolol only once a day instead of BID as he was instructed because his BP has been on lower side. In ED BP found elevated. Pt found sitting up in bed in NAD, awake, alert, oriented, answering appropriately. Pt's present at the bedside and also helps provide history. Pt's speech is normal, he is moving extremities without difficulty and currently denies having any previous symptoms. ED physician discussed w/ tele stroke neurology and it was recommended pt is admitted for further work up/ brain MRI. Admission Exam Per Admitting Provider Constitutional: WD/WN, vitals as above Eyes: PERRL, conjunctivae normal, anicteric sclerae ENMT: external ear and nose normal, oropharynx normal Neck: trachea midline, no thyromegaly Respiratory: normal respiratory effort, lungs clear to auscultation Cardiovascular: RRR, no murmur, no edema Chest (Breasts): Chest: normal inspection of chest Gastrointestinal (Abdomen): normal bowel sounds, soft, nontender, no hepatosplenomegaly Musculoskeletal: no cyanosis or clubbing, extremities motor strength 5/5 Skin: no rashes, warm and dry Neurologic: PERRL, EOMI, accommodation nl, no face palsy, no dysarthria moves extremities Psychiatric: A+Ox3, euthymic affect Principal Diagnosis TIA vs. Complex migraine Hypertensive urgency Discharge Exam Constitutional WD/WN, vitals as above no acute distress Respiratory normal respiratory effort, lungs clear to auscultation Cardiovascular Rate/Rhythm: regular rate and regular rhythm Vessels: normal peripheral pulses Extremities: no edema Skin no rashes, warm and dry Neurologic no focal motor deficits Psychiatric A+Ox3, euthymic affect Discharge Data Allergies Allergy/AdvReac Type Severity Reaction Status Date / Time animal dander Allergy Intermediate Itchy/Watery Verified 10/01/24 11:30 eyes, Congestion grass pollen Allergy Intermediate Itchy/Watery Verified 10/01/24 11:30 eyes, Congestion mold Allergy Intermediate Congestion Verified 10/01/24 11:30 warfarin [From Coumadin] Allergy Unknown Unknown Verified 10/01/24 11:30 Consultations 06/01/25 08:00 Consult Neurology Routine Ordered Studies Laboratory Results WBC 7.94 K/ul (4.8-10.8) 06/02/25 07:11 RBC 4.78 M/uL (4.70-6.10) 06/02/25 07:11 Hgb 14.9 g/dl (14.0-18.0) 06/02/25 07:11 Hct 44.4 % (42.0-52.0) 06/02/25 07:11 MCV 92.9 fL (80.0-100.0) 06/02/25 07:11 MCH 31.2 pg (25.0-34.0) 06/02/25 07:11 MCHC 33.6 g/dL (32.0-36.0) 06/02/25 07:11 RDW Std Deviation 45.5 fL (36.4-46.3) 06/02/25 07:11 RDW Coeff of Carine 13.3 % (11.5-14.5) 06/02/25 07:11 Plt Count 225 K/uL (130-400) 06/02/25 07:11 MPV 10.8 fL (9.4-12.4) 06/02/25 07:11 Immature Gran % (Auto) 0.2 % 05/31/25 16:43 Neut % (Auto) 63.9 % 05/31/25 16:43 Lymph % (Auto) 21.6 % 05/31/25 16:43 Crawford % (Auto) 10.5 % 05/31/25 16:43 Eos % (Auto) 3.4 % 05/31/25 16:43 Baso % (Auto) 0.4 % 05/31/25 16:43 Neut # (Auto) 5.13 K/uL (1.40-6.50) 05/31/25 16:43 Lymph # (Auto) 1.73 K/uL (1.20-3.40) 05/31/25 16:43 Crawford # (Auto) 0.84 K/uL (0.11-0.59) H 05/31/25 16:43 Eos # (Auto) 0.27 K/uL (0.00-0.50) 05/31/25 16:43 Baso # (Auto) 0.03 K/uL (0.00-0.20) 05/31/25 16:43 Immature Gran # (Auto) 0.02 K/uL (0.01-0.20) 05/31/25 16:43 PT 11.8 Seconds (9.0-12.0) 05/31/25 16:43 INR 1.1 (0.9-1.1) 05/31/25 16:43 APTT 29 Seconds (21-31) 05/31/25 16:43 PTT Ratio 1.1 05/31/25 16:43 Sodium 140 mmol/L (136-145) 06/02/25 07:11 Potassium 4.2 mmol/L (3.5-5.1) 06/02/25 07:11 Chloride 105 mmol/L (98-107) 06/02/25 07:11 Carbon Dioxide 28 mmol/L (21-32) 06/02/25 07:11 Anion Gap 7 (3-11) 06/02/25 07:11 BUN 19 mg/dl (6-23) 06/02/25 07:11 Creatinine 1.31 mg/dl (0.6-1.4) 06/02/25 07:11 Est Cr Clr Drug Dosing 56.4 ml/min 06/02/25 07:11 eGFR 56.06 06/02/25 07:11 BUN/Creatinine Ratio 14.5 (10-20) 06/02/25 07:11 Glucose 117 mg/dl (70-99(Fasting)) H 06/02/25 07:11 Estimat Average Glucose 148 mg/dl 06/01/25 09:10 Hemoglobin A1c 6.8 % (4.5-5.6) H 06/01/25 09:10 Calcium 9.3 mg/dl (8.6-10.3) 06/02/25 07:11 Phosphorus 3.2 mg/dl (2.5-4.9) 06/01/25 09:10 Magnesium 2.1 mg/dl (1.7-2.4) 06/01/25 09:10 Total Bilirubin 1.4 mg/dl (0.2-1.0) H 05/31/25 16:43 AST 18 U/L (13-39) 05/31/25 16:43 ALT 17 U/L (7-52) 05/31/25 16:43 Alkaline Phosphatase 42 U/L (34-104) 05/31/25 16:43 Troponin I High Sens 14.3 pg/ml (0-20) 05/31/25 16:43 Total Protein 6.4 gm/dl (6.0-8.3) 05/31/25 16:43 Albumin 3.7 gm/dl (3.4-5.0) 05/31/25 16:43 Globulin 2.7 gm/dl (2.5-4.0) 05/31/25 16:43 Albumin/Globulin Ratio 1.4 (0.9-2) 05/31/25 16:43 Triglycerides 175 mg/dl (0-150) H 06/01/25 09:10 Cholesterol 178 mg/dl (0-200) 06/01/25 09:10 LDL Cholesterol, Calc 107 mg/dl 06/01/25 09:10 VLDL Cholesterol, Calc 35 mg/dl (0-30) H 06/01/25 09:10 HDL Cholesterol 36 mg/dl 06/01/25 09:10 Cholesterol/HDL Ratio 4.9 (0-5) 06/01/25 09:10 Hepatitis C Ab Screen Negative (Negative) 05/31/25 22:52 Blood Type A Negative 05/31/25 16:57 Antibody Screen NEGATIVE 05/31/25 16:[address] 05/31/25 16:23 EXAM: CT Head Without Intravenous Contrast INDICATION: Neurologic deficit TECHNIQUE: Axial computed tomography images of the head/brain without intravenous contrast. Sagittal and/or coronal reformats are provided. Sagittal and coronal reformatted images were created and reviewed. This CT exam was performed using one or more of the following dose reduction techniques: automated exposure control, adjustment of the mA and/or kV according to patient size, and/or use of iterative reconstruction technique. COMPARISON: 10/01/2024 FINDINGS: Limitations: None. Brain and extra-axial spaces: There is age appropriate cortical atrophy and chronic ischemic periventricular white matter hypodensity. No acute infarct, hemorrhage or mass noted. Bones/joints: No acute changes. Soft tissues: No significant abnormality noted. Vasculature: No acute abnormality noted. Sinuses: No layering fluid in the visualized portions of the paranasal sinuses. Mastoid air cells: No mastoid effusion. Orbits: No significant abnormality noted. IMPRESSION: Cerebral atrophy. No acute changes. ACT 112: N/A Electronically signed by Naila Burgos 05-31-2025 4:51 PM Head CTA 05/31/25 16:23 EXAM: CT Angiography Head and Neck With Intravenous Contrast INDICATION: Neurologic deficit TECHNIQUE: [place] [facility] [place]/head and neck CT angiography protocol performed with intravenous contrast. Sagittal and coronal reformatted images were created and reviewed. This CT exam was performed using one or more of the following dose reduction techniques: automated exposure control, adjustment of the mA and/or kV according to patient size, and/or use of iterative reconstruction technique. MIP reconstructed images were created and reviewed. CONTRAST: 119 ml of Optiray 320 was administered intravenously. COMPARISON: None. FINDINGS: HEAD: Right anterior cerebral artery: No abnormality noted. No occlusion or significant stenosis. Anterior communicating artery is present. No aneurysm. Right middle cerebral artery: No abnormality noted. No occlusion or significant stenosis. No aneurysm. Right posterior cerebral artery: No abnormality noted. No occlusion or significant stenosis. No aneurysm. Right intracranial internal carotid artery: Atherosclerotic calcification noted. No significant stenosis. No dissection or occlusion. Right intracranial vertebral artery: No abnormality noted. No significant stenosis. No dissection or occlusion. Left anterior cerebral artery: No abnormality noted. No occlusion or significant stenosis. No aneurysm. Left middle cerebral artery: No abnormality noted. No occlusion or significant stenosis. No aneurysm. Left posterior cerebral artery: No abnormality noted. No occlusion or significant stenosis. No aneurysm. Left intracranial internal carotid artery: Atherosclerotic calcification noted. No significant stenosis. No dissection or occlusion. Left intracranial vertebral artery: No abnormality noted. No significant stenosis. No dissection or occlusion. Basilar artery: No abnormality noted. No occlusion or significant stenosis. No aneurysm. Other vasculature: No vascular malformation. NECK: Right common carotid artery: No abnormality noted. No significant stenosis. No dissection or occlusion. Right extracranial internal carotid artery: Calcific plaque at the bulb. No significant stenosis. No dissection or occlusion. Right external carotid artery: No abnormality noted. No occlusion. Right extracranial vertebral artery: No abnormality noted. No significant stenosis. No dissection or occlusion. Left common carotid artery: No abnormality noted. No significant stenosis. No dissection or occlusion. Left extracranial internal carotid artery: Calcific plaque at the bulb. No significant stenosis. No dissection or occlusion. Left external carotid artery: No abnormality noted. No occlusion. Left extracranial vertebral artery: No abnormality noted. No significant stenosis. No dissection or occlusion. Lung apices: No significant abnormality noted. HEAD and NECK: Bones/joints: No significant abnormality. Soft tissues: No abnormality noted. CAROTID STENOSIS REFERENCE USING NASCET CRITERIA: % ICA stenosis = (1 - narrowest ICA diameter/diameter of distal cervical ICA) x 100. Mild - <50% stenosis. Moderate - 50-69% stenosis. Severe - 70-94% stenosis. Near occlusion - 95-99% stenosis. Occluded - 100% stenosis. IMPRESSION: Negative CTA carotid and CTA brain. ACT 112: N/A Electronically signed by Naila Burgos 05-31-2025 4:54 PM Neck CTA 05/31/25 16:23 EXAM: CT Angiography Head and Neck With Intravenous Contrast INDICATION: Neurologic deficit TECHNIQUE: [place] [facility] [place]/head and neck CT angiography protocol performed with intravenous contrast. Sagittal and coronal reformatted images were created and reviewed. This CT exam was performed using one or more of the following dose reduction techniques: automated exposure control, adjustment of the mA and/or kV according to patient size, and/or use of iterative reconstruction technique. MIP reconstructed images were created and reviewed. CONTRAST: 119 ml of Optiray 320 was administered intravenously. COMPARISON: None. FINDINGS: HEAD: Right anterior cerebral artery: No abnormality noted. No occlusion or significant stenosis. Anterior communicating artery is present. No aneurysm. Right middle cerebral artery: No abnormality noted. No occlusion or significant stenosis. No aneurysm. Right posterior cerebral artery: No abnormality noted. No occlusion or significant stenosis. No aneurysm. Right intracranial internal carotid artery: Atherosclerotic calcification noted. No significant stenosis. No dissection or occlusion. Right intracranial vertebral artery: No abnormality noted. No significant stenosis. No dissection or occlusion. Left anterior cerebral artery: No abnormality noted. No occlusion or significant stenosis. No aneurysm. Left middle cerebral artery: No abnormality noted. No occlusion or significant stenosis. No aneurysm. Left posterior cerebral artery: No abnormality noted. No occlusion or significant stenosis. No aneurysm. Left intracranial internal carotid artery: Atherosclerotic calcification noted. No significant stenosis. No dissection or occlusion. Left intracranial vertebral artery: No abnormality noted. No significant stenosis. No dissection or occlusion. Basilar artery: No abnormality noted. No occlusion or significant stenosis. No aneurysm. Other vasculature: No vascular malformation. NECK: Right common carotid artery: No abnormality noted. No significant stenosis. No dissection or occlusion. Right extracranial internal carotid artery: Calcific plaque at the bulb. No significant stenosis. No dissection or occlusion. Right external carotid artery: No abnormality noted. No occlusion. Right extracranial vertebral artery: No abnormality noted. No significant stenosis. No dissection or occlusion. Left common carotid artery: No abnormality noted. No significant stenosis. No dissection or occlusion. Left extracranial internal carotid artery: Calcific plaque at the bulb. No significant stenosis. No dissection or occlusion. Left external carotid artery: No abnormality noted. No occlusion. Left extracranial vertebral artery: No abnormality noted. No significant stenosis. No dissection or occlusion. Lung apices: No significant abnormality noted. HEAD and NECK: Bones/joints: No significant abnormality. Soft tissues: No abnormality noted. CAROTID STENOSIS REFERENCE USING NASCET CRITERIA: % ICA stenosis = (1 - narrowest ICA diameter/diameter of distal cervical ICA) x 100. Mild - <50% stenosis. Moderate - 50-69% stenosis. Severe - 70-94% stenosis. Near occlusion - 95-99% stenosis. Occluded - 100% stenosis. IMPRESSION: Negative CTA carotid and CTA brain. ACT 112: N/A Electronically signed by Naila Burgos 05-31-2025 4:54 PM Brain MRI 06/01/25 07:10 HISTORY: Acute stroke yesterday with left-sided headache. TECHNIQUE: MRI of the brain without contrast. COMPARISON: CT of the head and CT angiography of the head and neck dated 05/31/2025. FINDINGS: The cerebellar tonsils do not extend below the foramen magnum. The sella is not expanded. No areas of restricted diffusion to suggest acute infarct.Patchy T2/FLAIR hyperintensity involving the periventricular and subcortical white matter is nonspecific. These findings are commonly attributed to chronic microvascular ischemic changes. Moderate diffuse volume loss. The globes and orbits are unremarkable. No areas of susceptibility artifact to suggest intracranial hemorrhage or significant abnormal hemosiderin deposition. The major intracranial flow voids are maintained. Ventricular caliber is appropriate for the moderate degree of volume loss. Fourth ventricle is midline. The basal cisterns are patent. The paranasal sinuses and mastoid air cells are well aerated. The soft tissues of the skull base and scalp are unremarkable. IMPRESSION: * No acute intracranial findings. No evidence of acute infarct, intracranial hemorrhage, or mass effect. * Moderate periventricular and subcortical white matter T2/FLAIR hyperintensity is nonspecific, but commonly attributed to chronic microvascular ischemic changes. Other differential considerations include demyelinating disease or other infectious or inflammatory etiologies. * Moderate diffuse volume loss. Electronically signed by Estuardo Campbell 06-01-2025 10:48 AM Hospital Course (1) Stroke-like symptom: Patient is a 75y/o M with PMHx significant for PAF chronically anticoagulated on Eliquis, HTN, HLD, remote history of TIA, moderate aortic root and ascending aortic enlargement, diet-controlled DMII, BPH, CKD stage IIIa, RLS and history of prostate CA who presented to the ED on 05/31/25 with strokelike sx. Acute confusion and speech difficulty starting around 3:30PM on 05/31/25 while doing word puzzles on the computer. Could not spell, garbling speech per patient's who witnessed the event. Nursing in ED also appreciated a slight left-sided facial droop. Called STROKE ALERT in the ED. Head CT without no acute abnormalities, cerebral atrophy. Head/neck CTA grossly unremarkable. Seen and evaluated by telestroke neurology. -Pt not TNK candidate as sx rapidly resolved, also on chronic anticoagulation with Eliquis. -Advised to admit for full stroke evaluation. 06/01/25 TTE with EF 60-65%, grade I DD, mild AR, mild PVR, mild MR, mild TR, moderate aortic root dilatation. Brain MRI without evidence of acute infarct, intracranial hemorrhage or mass effect. Moderate periventricular and subcortical white matter T2/FLAIR hyperintensity is nonspecific, but commonly attributed to chronic microvascular ischemic changes. Only neurological complaint is new-onset intermittent headaches x 2-3wk, primarily in L frontal and occipital regions. No reported visual changes but does experiencing coinciding midline neck pain, irritability with these. Possible that presentation insurance account representative of complex migraine syndrome vs TIA. Discussed case with neuro, Dr. Leary, via TT with following recommendations: -Continue Eliquis 5mg BID, increase rosuvastatin to 20mg daily. -1 month follow up in stroke neurology clinic. -Trial migraine cocktail with diphenhydramine 12.5mg IV every 6 hours, ketorolac 15mg IV every 6 hours, IV fluids rate 125 mL/hour, magnesium sulfate 2gm IV daily, pantoprazole 40mg daily, Compazine 10mg IV every 6 hours. If this regimen is ineffective, can add prednisone 20 mg daily and valproic acid 500 mg IV daily. -Goal SBP<160. -If unable to control headaches would recommend MRI with contrast and LP. Headache improved within 24h of starting migraine cocktail (2) Hypertensive urgency: Required few doses of IV labetalol since admission. Toprol-XL was recently reduced in OP setting down to 50mg daily from BID dosing and Lisinopril has been gradually decreased - current [employer] dose Lisinopril 20mg daily (2/2 hypotension). Reinstated BID Toprol-XL 50mg dosing Increased lisinopril dosing to 30mg daily from 20mg daily Started amlodipine 5mg daily Will need close monitoring of BP as o/p for further med adjustments (3) Hyponatremia: Noted on admission, resolved on repeat labs No further w/u required at this time. (4) PAF (paroxysmal atrial fibrillation): Chronically anticoagulated on Eliquis - continue. Remains in NSR on tele, BB as above Other chronic medical conditions: HLD - Continue rosuvastatin at increased dosing as per above. History of moderate aortic root and ascending aortic enlargement - 4.6cm and stable per TTE done in August 2024. DMII - Diet-controlled, updated Hgb A1c 6.8%. CKD stage IIIa - Cr stable, baseline Cr 1.1-1.3 per OP chart review. Continue to monitor, avoid nephrotoxic agents as able. Total Time Total Time Spent Total Time Spent (In Minutes): 40 Discharge Plan Discharge Items Patient Disposition: Home - Self-Care Reason For Visit: Stroke like symptoms Discharge Diagnosis: TIA (mini stroke) vs. possible complex migraine Elevated Blood Pressure Condition on Discharge: Fair Activity: Resume your previous activity Non-emergency contact: Primary Care Provider Call non-emergency contact if: you have any medication questions, your symptoms worsen, your pain is not controlled and you have a fever Follow-up/Referrals: Ann Ramirez MD [Physician] - 06/16/25 2:20 pm Wesley Leary MD [Primary Care Provider] - (Date & Time 06/06/2025 10:20 AM Provider: Wesley Leary DO [facility] ) Diet: Carb Consistent or DM2 and Heart Healthy Addtl Attending Provider Instructions: You presented to the hospital for evaluation of strokelike symptoms. You were admitted and underwent a stroke workup including head CT, head and neck angiography, and brain MRI that were all unremarkable. Neurology was consulted and felt that your symptoms may be due to a TIA (mini stroke) or complex migraine. Your blood pressure was also elevated during admission and your blood pressure medications were adjusted. Keep a log of your blood pressure and take your follow up appointments. Follow up with your PCP and neurology as scheduled. MEDICATION CHANGES: INCREASE lisinopril to 30 mg and take at bedtime START taking amlodipine 5 mg daily INCREASE rosuvastatin to 20 mg daily Pending Studies at Discharge: No Stand-Alone Forms: My [facility] [place] [employer], Smoking Cessation Medications and DC Order Prescriptions: New amlodipine 5 mg Tablet 5 mg PO QAM Qty: 30 0RF lisinopril 10 mg Tablet 30 mg PO HS 30 Days Qty: 90 0RF Rx Instructions: Start taking on 06/03/25 rosuvastatin 20 mg Tablet 20 mg PO QAM Qty: 30 0RF Continued multivitamin Tablet 1 tab PO QAM Patient Comments: 05/31- otc unable to verify montelukast 10 mg tablet 10 mg PO QPM Vitron-C 65 mg iron- 125 mg Tablet,Delayed Release (Dr/Ec) 1 tab PO DAILY Patient Comments: 05/31- otc unable to verify diphenoxylate-atropine [Lomotil] 2.5-0.025 mg tablet 1 tab PO UD PRN (Reason: Other) trospium 20 mg tablet 20 mg PO DAILY escitalopram oxalate [Lexapro] 10 mg tablet 10 mg PO QAM metoprolol succinate 50 mg tablet extended release 24 hr 50 mg PO BID albuterol sulfate 90 mcg/actuation HFA aerosol inhaler 2 puff INHALATION Q4H PRN (Reason: wheezing or dyspnea) Patient Comments: 05/31- last filled 08/05 Eliquis 5 mg tablet 5 mg PO BID Discontinued lisinopril 20 mg tablet 20 mg PO UD Patient Comments: 05/31-20 mg dose last filled 04/03 90 day supply #90; Lisinopril 10 mg: filled 08/28 29 day supply #30; Lisinopril 30 mg filled 02/14 90 day supply #90. Rx Instructions: Take 20mg w/ 10mg to equal 30 mg by mouth once in the morning. lisinopril 10 mg tablet 0 mg PO UD Patient Comments: 05/31- last filled 08/28 29 day supply #30;30 mg filled 02/14 90 day supply #90. Original: Take 10mg w/ 20mg to equal 30 mg by mouth once in the morning. Discharge Orders: Discharge Order (Routine); Ordered 06/02/25 Ordered By: Ewa George/Other Patient Handouts: Type 2 Diabetes Admission Data Admit Date/Time: 05/31/25 18:12 Attending Provider: Emily Arias I. Admit Provider: Remigio Kim Primary Care Provider: Wesley Leary Other Providers: Remigio Kim; Juani Leary Other Interventions: Discharge Summary Assessment (RN) Last Done: 06/02/25 12:09 Supervising Physician Co-Signing Physician Notes Patient seen and examined Agree with findings as detailed by Ewa ROSALES
== END 2025-06-02 12:53 | disposition home or self-care (01) ==
LOC: ED 16:18 → INTOOBSV 18:12 → EDINP 18:12 → SUATTDRO 18:12 → 2N 21:36